=== PATIENT | male | born 1980 | race Caucasian/White ===

== ENCOUNTER 2017-12-24 17:58 | Emergency (ER) | payer SELFPAY ==
[2017-12-24 17:59] VITALS: BP 156/88; PULSE 117; RESP 18; TEMP 37.2; O2SAT 99; BMI 33.6
--- NOTE | 2017-12-24 18:15 | ED.VISSUMM ---
- ER Visit Summary Date of Service: 12/24/17 Chief Complaint: Facial swelling History of Present Illness: The patient is a 37 M who reports that since Saturday he has had right-sided facial swelling and pain. States he has had long-term poor dentition. He has appointment on January 17 with a dentist. Due to the pain and swelling he wanted to be seen. No fevers. Physical Examination: Afebrile vital signs are stable Gen: Well-nourished well-developed Head: Normocephalic atraumatic Eyes: Perrl EOMI ENT: TMs clear no rhinorrhea moist mucous membranes there is right maxillary facial swelling without erythema. There is no drainable abscess seen. He has very poor dentition throughout with most teeth decayed down to the gumline. He is handling his secretions normally. Neck: Supple no lymphadenopathy no JVD nontender CVS: Regular rate rhythm no murmurs normal S1-S2 Respiratory: No distress clear to auscultation bilaterally chest nontender Abdomen: Soft nontender nondistended normal bowel sounds no masses Back: Nontender Extremity: Nontender no edema Skin: Normal color no rash Neuro: alert orientated ?3 CN II-XII intact normal strength sensation reflexes gait cerebellar Psych: Normal affect normal mood Emergency Department Course and Treatment: Patient received a dose of IV clindamycin. He will be discharged home on [place] and clindamycin. Return if worsening and follow-up with primary care and dentistry. Impression: 1. Dental abscess This note was generated with [employer] dictation software. It may contain incorrect words, spelling, and punctuation that were not noted in review of the chart prior to signing ED Disposition - Plan for ED Patient: Disposition: Home or Assisted Living Chief Complaint: Dental Instructions: Dental Abscess Prescriptions: Hydrocodone Bitart/Apap 5-325 [[place] 5/325] 1 - 2 tab PO Q4H PRN PRN 3 Days #12 tab PRN Reason: Pain Clindamycin [Cleocin] 300 mg PO 4X/DAY #80 cap Referrals: Louie Funk MD [Primary Care Provider] - Additional Instructions: Follow-up with your dentist as soon as possible.
--- NOTE | 2017-12-24 18:25 | ED.DCSUM_ITS ---
- ER Visit Summary Date of Service: 12/24/17 Chief Complaint: Facial swelling History of Present Illness: The patient is a 37 M who reports that since Saturday he has had right-sided facial swelling and pain. States he has had long-term poor dentition. He has appointment on January 17 with a dentist. Due to the pain and swelling he wanted to be seen. No fevers. Physical Examination: Afebrile vital signs are stable Gen: Well-nourished well-developed Head: Normocephalic atraumatic Eyes: Perrl EOMI ENT: TMs clear no rhinorrhea moist mucous membranes there is right maxillary facial swelling without erythema. There is no drainable abscess seen. He has very poor dentition throughout with most teeth decayed down to the gumline. He is handling his secretions normally. Neck: Supple no lymphadenopathy no JVD nontender CVS: Regular rate rhythm no murmurs normal S1-S2 Respiratory: No distress clear to auscultation bilaterally chest nontender Abdomen: Soft nontender nondistended normal bowel sounds no masses Back: Nontender Extremity: Nontender no edema Skin: Normal color no rash Neuro: alert orientated ?3 CN II-XII intact normal strength sensation reflexes gait cerebellar Psych: Normal affect normal mood Emergency Department Course and Treatment: Patient received a dose of IV clindamycin. He will be discharged home on [place] and clindamycin. Return if worsening and follow-up with primary care and dentistry. Impression: 1. Dental abscess This note was generated with [employer] dictation software. It may contain incorrect words, spelling, and punctuation that were not noted in review of the chart prior to signing ED Disposition - Plan for ED Patient: Disposition: Home or Assisted Living Chief Complaint: Dental Instructions: Dental Abscess Prescriptions: Hydrocodone Bitart/Apap 5-325 [[place] 5/325] 1 - 2 tab PO Q4H PRN PRN 3 Days #12 tab PRN Reason: Pain Clindamycin [Cleocin] 300 mg PO 4X/DAY #80 cap Referrals: Louie Funk MD [Primary Care Provider] - Additional Instructions: Follow-up with your dentist as soon as possible.
[2017-12-24] MEDS: Clindamycin 600 MG/50 ML BAG 100 MG IV (18:38)
[2017-12-24 18:59] VITALS: BP 138/81; PULSE 87; RESP 16; O2SAT 99
== END 2017-12-24 19:31 | disposition home or self-care (01) ==
PROVIDERS: Emergency Provider Emergency Medicine; Family Provider Internal Medicine; PCP Internal Medicine
DX: K04.7 Periapical abscess without sinus (principal); Z72.0 Tobacco use; K02.9 Dental caries, unspecified
CPT/HCPCS: 96365; 99283; A4216

== ENCOUNTER 2018-12-06 17:37 | Emergency (ER) | payer SELFPAY ==
[2018-12-06 17:38] VITALS: BP 154/81; PULSE 80; RESP 18; TEMP 36.6; O2SAT 99; BMI 32.0
--- NOTE | 2018-12-06 17:56 | ED.VISSUMM ---
- ER Visit Summary Date of Service: 12/06/18 Chief Complaint: Abdominal pain History of Present Illness: The patient is a 38 M presenting with abdominal pain. Patient states it started around 8 AM. He has left lower quadrant abdominal pain. He states he was sent home from work due to his pain today. He has had diarrhea. He denies nausea or vomiting. Denies urinary complaints. Denies fever. Denies other complaints. Physical Examination: Vitals are stable. Patient is afebrile. Alert no acute distress. HEENT exam is unremarkable. Neck is supple. Lungs are clear and equal bilaterally. Heart is regular rate and rhythm. Abdomen is soft left lower quadrant tenderness with no rebound or guarding Extremities are unremarkable. Skin is warm and dry. No focal neurologic deficit. Remainder of exam is unremarkable. Emergency Department Course and Treatment: CBC, chemistries are unremarkable. Urinalysis unremarkable. Patient was given IV fluids, Zofran. CT abdomen pelvis shows no acute process. On reevaluation, patient is resting comfortably. He is given prescription for Bentyl and Zofran. Advised to follow-up with his primary care physician. Advised return to ED if worsening complaints. Disposition: Discharge home Impression: Abdominal pain This note was generated with [employer] dictation software. It may contain incorrect words, spelling, and punctuation that were not noted in review of the chart prior to signing ED Disposition - Plan for ED Patient: Chief Complaint: Abd Pain Instructions: ED Abdominal Pain Unkn Cause Prescriptions: Ondansetron [Zofran Odt] 4 mg PO Q8H PRN PRN #10 tablet PRN Reason: Nausea Dicyclomine HCl [Bentyl] 20 mg PO TIDAC #20 capsule Referrals: Louie Funk MD [Primary Care Provider] -
--- NOTE | 2018-12-06 17:57 | CT_ITS ---
STUDY: CT ABDOMEN AND PELVIS WITH CONTRAST REASON FOR EXAM: Male, 38 years old. Left-sided pain RADIATION DOSAGE (If Supplied By Facility): CTDIvol = ( 17.38 ) mGy, DLP = ( 890.41 ) mGycm TECHNIQUE: Transaxial images were obtained from the dome of the diaphragm to the symphysis pubis with oral contrast. 100ML ml of Isovue 300 contrast was administered. Sagittal and coronal images were reconstructed. Individualized dose optimization techniques were used for this CT. COMPARISON: None. FINDINGS: The visualized lung bases are clear. The visualized portions of the heart and pericardium are within normal limits. There are no calcified gallstones present. The liver is within normal limits. There are no suspicious hepatic lesions. The spleen is normal in size. The pancreas is within normal limits. The adrenal glands are within normal limits. There are no renal or ureteral stones. There is no hydronephrosis. There are no focal renal lesions. Normal visualized stomach. There is no bowel obstruction or inflammation. The appendix is visualized and appears normal. The aorta is normal in caliber. There is no abdominal or pelvic free air, free fluid, fluid collection or lymphadenopathy. There are no destructive osseous lesions. CT/Abdomen/Pelvis WITH Contrast IMPRESSION: No acute abdominal or pelvic pathology. Electronically Signed: Chad Berman, at 20:20 EST Tel , Service support ,
[2018-12-06] MEDS: Ondansetron 4 MG/2 ML Vial IV (18:09)
[2018-12-06] MEDS: 0.9% Normal Saline 1,000 ML 1000 ML IV (18:09)
[2018-12-06 18:20] LABS: Bacteria 0 SEEN /hpf (None Seen); Mucous, Urine 0 SEEN /hpf (<or=2+); Red Blood Cells-Urine 0 SEEN /hpf (0-5); Squamous Epithelial Cells - UA 0 SEEN /hpf (0-5); White Blood Cells 0 SEEN /hpf (0-5)
[2018-12-06 18:22] LABS: Color, Urine Yellow (Yellow); Glucose, Dipstick Normal (Normal); Ketone-Dipstick Negative (Negative); Leukocyte Esterase-Dipstick Negative /ul (Negative); Nitrite-Dipstick Negative (Negative); Occult Blood-Urine Negative /ul (Negative); Protein-Dipstick Negative (Negative); Specific Gravity, Urine 1.005 (1.002-1.030); Urine Bilirubin Dipstick Negative (Negative); Urine Clarity Clear (Clear); Urine Urobilinogen Normal (Normal)
[2018-12-06 18:24] LABS: Absolute Lymphocyte Count 2.19 X10^3/ul (0.83-4.51); Absolute Neutrophil Count 5.2 X10^3/uL (2.0-7.7); Basophil# 0.06 X10^3/uL; Basophil% 0.7 % (0-1); Eosinophil# 0.35 X10^3/uL; Eosinophils% 4.1 % (0-5); Hematocrit 48.6 % (40-54); Hemoglobin 16.5 g/dl (13.0-16.5); Lymphocyte # 2.19 X10^3/ul (4.0); Lymphocyte % 25.3 % (19-41); Mean Corpuscular Hgb 32.7 pg (27.0-32.0); Mean Corpuscular Volume 96.4 fL (80-94); Mean Platelet Vol. 9.4 fl (6.2-12.0); Monocyte# 0.81 X10^3/uL; Monocyte% 9.4 % (0-10); Neutrophil # 5.22 X10^3/uL (2.7-7.7); Neutrophil % 60.4 % (47-70); POSITIVE COUNT NO; POSITIVE DIFFERENTIAL NO; POSITIVE MORPHOLOGY NO; Platelet Count 235 K/mm3 (150-450); RBC Distribution Width CV 12.7 % (11.6-14.6); RBC Distribution Width SD 44.5 fl (35.1-43.9); Red Blood Count 5.04 M/mm3 (4.6-6.2); White Blood Count 8.6 K/mm3 (4.4-11.0)
[2018-12-06 18:36] LABS: Anion Gap 6 (5-15); BUN 11 mg/dL (7-18); BUN/Creat Ratio 11.2 RATIO (10-20); Calcium,Total 9.2 mg/dL (8.5-10.1); Chloride 104 mmol/L (98-107); Creatinine, Serum 0.98 mg/dL (0.70-1.30); EST Glomerular Filtration Rate 91 mL/min (>60); Est Glom Filt Rate - Afr Amer 110 mL/min (>60); Estimated Creatinine Clearance 78.93 ml/min; Glucose 96 mg/dL (74-106); Sodium Level 138 mmol/L (136-145)
--- NOTE | 2018-12-06 20:24 | ED.DEP ---
ED Disposition - Plan for ED Patient: Chief Complaint: Abd Pain Instructions: ED Abdominal Pain Unkn Cause Prescriptions: Ondansetron [Zofran Odt] 4 mg PO Q8H PRN PRN #10 tablet PRN Reason: Nausea Dicyclomine HCl [Bentyl] 20 mg PO TIDAC #20 capsule Referrals: Louie Funk MD [Primary Care Provider] -
[2018-12-06 20:32] VITALS: BP 151/88; PULSE 84; O2SAT 99
[2018-12-06 20:35] VITALS: BP 151/54; PULSE 84; O2SAT 98
== END 2018-12-06 20:36 | disposition home or self-care (01) ==
LOC: ED 18:12
PROVIDERS: Emergency Provider Emergency Medicine; Family Provider Internal Medicine; PCP Internal Medicine
DX: R10.32 Left lower quadrant pain (principal); R19.7 Diarrhea, unspecified; Z72.0 Tobacco use
CPT/HCPCS: 74177; 80048; 81001; 85025; 96361; 96374; 99283; J7030; Q9967; A4216; J2405

== ENCOUNTER 2020-06-04 13:20 | Emergency (ER) | payer SELFPAY ==
[2020-06-04 13:21] VITALS: BP 144/98; PULSE 104; RESP 16; TEMP 36.6; O2SAT 98; BMI 35.6
--- NOTE | 2020-06-04 13:36 | CT_ITS ---
STUDY: CT ABDOMEN AND PELVIS WITH CONTRAST REASON FOR EXAM: Male, 39 years old. PT STATED RUQ PAIN, UNABLE TO MOVE BOWELS RADIATION DOSAGE (If Supplied By Facility): CTDIvol = ( 14.75 ) mGy, DLP = ( 1041.09 ) mGycm TECHNIQUE: Transaxial images were obtained from the dome of the diaphragm to the symphysis pubis without oral contrast. IV 100mL Isovue-300 was administered. Sagittal and coronal images were reconstructed. Individualized dose optimization techniques were used for this CT. COMPARISON: December 06, 2017 FINDINGS: The visualized lung bases are unremarkable. The visualized portions of the heart are within normal limits. Normal liver. Normal gallbladder and extrahepatic biliary system. Normal spleen. Normal pancreas. Normal bilateral adrenal glands. Normal right kidney. Normal left kidney. Normal visualized stomach. Normal small intestine. There is mild thickening of the left colon. There is no demonstrated pericolonic inflammatory changes to suggest acute disease. The appendix is visualized and appears normal. Normal abdominal aorta. Normal inferior vena cava. Normal retroperitoneum. Normal urinary bladder. Normal abdominal wall. There are diffuse degenerative changes of the visualized lumbar spine. CT/Abdomen/Pelvis W IV Cont ONLY IMPRESSION: Mild thickening of the left colon. Differential considerations are nondistention, inflammatory and infectious colitis. Electronically Signed: Lucy Gonsalves MD at 15:17 EDT Tel , Service support ,
--- NOTE | 2020-06-04 13:37 | ED.VIS.GEN ---
History of Present Illness Chief Complaint: Abd Pain Informant: Patient Narrative: Patient is a 39-year-old previously ill female who presents to the emergency department for right upper quadrant pain and distention. This been going on the past 2 to 3 weeks. He does not know any aggravating or relieving factors. Currently rates his discomfort as a 5 out of 10. He has not tried taking anything for it. He feels like there is a mass in his abdomen. He feels a pressure sensation when bending forward. He does have some radiation of the right upper quadrant pain to the right side of his flank. He has been slightly nauseous but denies vomiting. States he has been having very small bowel movements but has been having them daily. No blood or black tarry stools. No urinary symptoms. No fevers or chills. Denies any chest pain or shortness of breath. No previous abdominal surgeries. He is a former smoker denies any alcohol or drug use. Past Medical History - Allergies and Home Meds Allergies/Adverse Reactions: Allergies naproxen Adverse Reaction (Verified 06/04/20 13:21) Nausea Primary Care Physician: Santino Mendieta DO [NON CLINICAL AFFILIATE] - 3-5 Days Louie Funk MD [Primary Care Provider] - Prior records reviewed: Yes Past Medical History: None Surgical History: no surgical history Smoking Status: Former smoker Alcohol: None Drugs: None Review of Systems All systems negative except as indicated General: Denies: Chills, Fever, Sweats Eyes: Denies: Visual changes - bilaterally, Diplopia ENT: Denies: Rhinorrhea, Sore throat Cardiovascular: Denies: Chest pain, Palpitations Respiratory: Denies: Dyspnea, Cough, Dyspnea on exertion Gastrointestinal: Reports: Abdominal pain, Nausea. Denies: Vomiting, Diarrhea, Melena, Hematochezia Genitourinary: Denies: Dysuria, Hematuria, Frequency Musculoskeletal: Denies: Back pain, Extremity Pain Skin: Denies: Rash, Wounds Neurological: Denies: Headache, Weakness, Numbness Physical Exam Vital Signs/Narrative: Vital Signs Temp Pulse Resp BP Pulse Ox 06/04/20 13:21 97.8 F 104 H 16 144/98 H 98 Inital Vital Signs reviewed: Yes General: Well nourished, Well developed, No Acute Distress Head: Normocephalic, Atraumatic Eyes: Perrl, EOMI ENT: Moist mucous membranes, No rhinorrhea Neck: Supple, Nontender Cardiovascular: Regular rate, Regular rhythm, No murmurs Respiratory: No distress, CTA bilaterally, Chest nontender Abdomen: Soft, Nontender, Nondistended, Normal bowel sounds, Tender - Mild, mostly in the right upper quadrant, - - No pain over McBurney's point. Negative for: Guarding, Rebound tenderness, Da Silva's sign Back: Nontender, Normal Inspection Extremities: Nontender, No edema Skin: Normal color, No rash Neurological: Alert, Oriented x3, Cranial nerves II-XII grossly intact, Normal Strength, Normal Sensation Psychological: Normal affect, Normal Mood Diagnostic/Tx/Re-eval - Medical Decision Making Patient presents to the emergency department for right upper quadrant discomfort and abdominal distention. Symptoms have been present the past few weeks. Upon arrival to the emerge department vital signs within normal limits. Does not appear in any acute distress. No peritoneal signs on physical exam but does have some mild tenderness. Will check basic lab work along with CT scan of the abdomen and pelvis to evaluate for gallbladder/liver disease. Lab work did not reveal any significant acute abnormality. Very mildly elevated bilirubin. No other elevation of liver enzymes. Urine did not show any evidence of infection or blood. CT scan had some mild thickening of the colon. This is nonspecific. He has not had any bloody bowel movements to make me concerned for ischemic colitis. Will trial a course of Bentyl for symptomatic treatment. He is provided a referral to a PCP from the doc list as he has not seen Dr. Hwang in a long time. Return precautions were discussed with the patient including any worsening abdominal pain developing any systemic symptoms including any fever/chills or any bloody bowel movements were reviewed. He understands and is agreeable this plan. Will discharge home in stable condition. ED Disposition - Plan for ED Patient: Disposition: Home or Assisted Living Diagnosis: Abdominal pain Instructions: ED Unknown Causes of Abdominal Pain Male Prescriptions: Dicyclomine HCl [Bentyl] 10 mg PO TID PRN 30 Days #30 cap PRN Reason: pain Transmission Status: Received by [facility] #[id number] Referrals: Louie Funk MD [Primary Care Provider] - Santino Mendieta DO [NON CLINICAL AFFILIATE] - 3-5 Days
[2020-06-04 13:49] LABS: Absolute Lymphocyte Count 1.81 X10^3/uL (0.83-4.51); Absolute Neutrophil Count 4.3 X10^3/uL (2.0-7.7); Basophil# 0.04 X10^3/uL; Basophil% 0.6 % (0-1); Eosinophil# 0.06 X10^3/uL; Eosinophils% 0.9 % (0-5); Hematocrit 43.3 % (40-54); Hemoglobin 14.9 g/dL (13.0-16.5); Lymphocyte # 1.81 X10^3/ul (4.0); Lymphocyte % 25.8 % (19-41); Mean Corp Hgb Conc 34.4 g/dL (32-36); Mean Corpuscular Hgb 31.6 pg (27.0-32.0); Mean Corpuscular Volume 91.9 fL (80-94); Mean Platelet Vol. 8.9 fl (6.2-12.0); Monocyte# 0.74 X10^3/uL; Monocyte% 10.6 % (0-10); NRBC Flagged by Analyzer 0 % (0-5); Neutrophil # 4.34 X10^3/uL (2.7-7.7); Neutrophil % 61.8 % (47-70); Platelet Count 288 K/mm3 (150-450); RBC Distribution Width SD 43.4 fl (35.1-43.9); Red Blood Count 4.71 M/mm3 (4.6-6.2)
[2020-06-04 14:06] LABS: Bacteria 0 SEEN /hpf (None Seen); Mucous, Urine 0 SEEN /hpf (<or=2+); Red Blood Cells-Urine 0 SEEN /hpf (0-5); Squamous Epithelial Cells - UA 0 SEEN /hpf (0-5); White Blood Cells 0 SEEN /hpf (0-5)
[2020-06-04 14:08] LABS: Color, Urine Straw (Yellow); Glucose, Dipstick Normal (Normal); Ketone-Dipstick Negative (Negative); Leukocyte Esterase-Dipstick Negative /ul (Negative); Nitrite-Dipstick Negative (Negative); Occult Blood-Urine Negative /ul (Negative); Protein-Dipstick Negative (Negative); Urine Bilirubin Dipstick Negative (Negative); Urine Clarity Clear (Clear); Urine Urobilinogen Normal (Normal); Urine pH 6.5 (5.0 - 8.0)
[2020-06-04 14:35] LABS: ALB/GLOB Ratio 1.1 RATIO (0.9-2.4); AST(SGOT) 26 U/L (15-37); Alanine Aminotransfer ALT/SGPT 35 U/L (16-61); Albumin, Serum 4.2 g/dL (3.2-5.0); Alkaline Phosphatase 84 U/L (45-117); Anion Gap 5 (5-15); BUN 10 mg/dL (7-18); BUN/Creat Ratio 11.3 RATIO (10-20); Calcium,Total 8.8 mg/dL (8.5-10.1); Chloride 105 mmol/L (98-107); Creatinine, Serum 0.88 mg/dL (0.70-1.30); EST Glomerular Filtration Rate 102 mL/min (>60); Est Glom Filt Rate - Afr Amer 123 mL/min (>60); Estimated Creatinine Clearance 87.04 ml/min; Globulin 3.9 g/dL (2.2-4.2); Glucose 105 mg/dL (74-106); Lipase 75 U/L (73-393); Potassium 3.8 mmol/L (3.5-5.1); Protein, Total 8.1 g/dL (6.4-8.2); Sodium Level 138 mmol/L (136-145)
[2020-06-04 15:47] VITALS: BP 138/87; PULSE 84; RESP 19; O2SAT 99
== END 2020-06-04 15:48 | disposition home or self-care (01) ==
PROVIDERS: Emergency Provider Emergency Medicine; PCP Internal Medicine
DX: R10.11 Right upper quadrant pain (principal); Z87.891 Personal history of nicotine dependence
CPT/HCPCS: 74177; 80053; 81001; 83690; 85025; 99283; Q9967; A4216

== ENCOUNTER 2020-07-01 06:35 | Emergency (ER) | payer SELFPAY ==
[2020-07-01 06:37] VITALS: BP 143/82; PULSE 95; RESP 23; TEMP 37; O2SAT 100; BMI 36.6
--- NOTE | 2020-07-01 06:49 | EKG12_ITS ---
Test Reason : CP Blood Pressure : / mmHG Vent. Rate : 087 BPM Atrial Rate : 087 BPM P-R Int : 136 ms QRS Dur : 090 ms QT Int : 338 ms P-R-T Axes : 023 034 040 degrees QTc Int : 406 ms Normal sinus rhythm Poor R wave progression Confirmed by SERJIO PEÑALOZA, LANE ([id number]), loan expeditor JOHN MCGINNIS ([id number]) on 07/05/2020 10:40:42 AM Referred By: RELL Confirmed By:LANE BASSETT MD
--- NOTE | 2020-07-01 06:55 | RAD_ITS ---
STUDY: X-RAY CHEST REASON FOR EXAM: Male, 39 years old. chest pain and sob x 1 week TECHNIQUE: Single AP portable view of the chest. COMPARISON: January 20 2011. FINDINGS: Cardiac silhouette unremarkable. Pulmonary vascularity unremarkable. Aorta unremarkable. No focal patchy airspace opacities. No pleural effusions. Upper abdomen unremarkable. Osseous structures intact. No pneumothorax. RAD/Chest 1 View (Portable) IMPRESSION: No acute cardiopulmonary findings Electronically Signed: Jean Dumont DO at 8:22 EDT Tel , Service support ,
[2020-07-01 07:00] LABS: Absolute Lymphocyte Count 2.45 X10^3/uL (0.83-4.51); Absolute Neutrophil Count 3.9 X10^3/uL (2.0-7.7); Basophil# 0.05 X10^3/uL; Basophil% 0.7 % (0-1); Eosinophil# 0.12 X10^3/uL; Eosinophils% 1.7 % (0-5); Hematocrit 44.1 % (40-54); Hemoglobin 15.2 g/dL (13.0-16.5); Lymphocyte # 2.45 X10^3/ul (4.0); Lymphocyte % 34.1 % (19-41); Mean Corp Hgb Conc 34.5 g/dL (32-36); Mean Corpuscular Volume 92.8 fL (80-94); Mean Platelet Vol. 9.4 fl (6.2-12.0); Monocyte# 0.64 X10^3/uL; Monocyte% 8.9 % (0-10); NRBC Flagged by Analyzer 0 % (0-5); Neutrophil # 3.91 X10^3/uL (2.7-7.7); Neutrophil % 54.3 % (47-70); Platelet Count 287 K/mm3 (150-450); RBC Distribution Width CV 12.7 % (11.6-14.6); RBC Distribution Width SD 43.8 fl (35.1-43.9); Red Blood Count 4.75 M/mm3 (4.6-6.2); White Blood Count 7.2 K/mm3 (4.4-11.0)
[2020-07-01 07:14] LABS: BUN 6 mg/dL (7-18); Creatinine, Serum 1.13 mg/dL (0.70-1.30); Estimated Creatinine Clearance 67.78 ml/min; Glucose 154 mg/dL (74-106)
--- NOTE | 2020-07-01 07:14 | ED.VIS.GEN ---
History of Present Illness Chief Complaint: Chest Pain Informant: Patient Narrative: Patient presents with chest pressure that he has had for the last 6 days. He states it has been constant but sporadically does hurt worse. He describes intermittent sharp stabbing pains. He states he has been breathing fine. He has not been coughing. He states he is not had a fever but has had chills. He states he feels like he is going to have a fever but every time he checks his temperature is normal. He has no known exposure to COVID?19. He has no other sick contacts. He denies cardiac history. No history of DVT/PE. He states he quit smoking about 6 months ago. He smoked for 15 years. He states he does not have any other known medical problems. He takes no medications on a regular basis. Past Medical History - Allergies and Home Meds Allergies/Adverse Reactions: Allergies naproxen Adverse Reaction (Verified 07/01/20 06:36) Nausea Primary Care Physician: Louie Funk MD [Primary Care Provider] - Prior records reviewed: Yes Surgical History: no surgical history Lives: Alone Smoking Status: Former smoker Alcohol: None Drugs: None Review of Systems General: Reports: Chills, Sweats Eyes: Denies: Visual changes - bilaterally, Diplopia ENT: Denies: Rhinorrhea, Sore throat Cardiovascular: Reports: Chest pain Respiratory: Denies: Dyspnea, Cough Gastrointestinal: Denies: Abdominal pain, Nausea Musculoskeletal: Reports: Myalgias. Denies: Arthralgias Skin: Denies: Rash Neurological: Denies: Headache, Weakness Allergy: Denies: Uticaria Physical Exam Vital Signs/Narrative: Vital Signs Temp Pulse Resp BP Pulse Ox 07/01/20 06:37 98.6 F 95 23 H 143/82 H 100 Inital Vital Signs reviewed: Yes General: No Acute Distress Head: Normocephalic, Atraumatic Eyes: Perrl, EOMI ENT: Moist mucous membranes Cardiovascular: Regular rate, Regular rhythm, No murmurs Respiratory: No distress, CTA bilaterally. Negative for: Wheezing Abdomen: Soft Extremities: Nontender, No edema. Negative for: Calf Tenderness Skin: Normal color, No rash Neurological: Alert, Oriented x3 Psychological: Normal affect, Normal Mood Diagnostic/Tx/Re-eval Clinical Impression(s) from Imaging Studies Chest X-Ray 07/01/20 06:55 IMPRESSION: No acute cardiopulmonary findings Electronically Signed: Jean Dumont, at 8:22 EDT Tel , Service support , Laboratory Data 07/01/20 07/01/20 07/01/20 06:42 06:42 06:42 WBC 7.2 RBC 4.75 Hgb 15.2 Hct 44.1 MCV 92.8 MCH 32.0 MCHC 34.5 RDW Std Deviation 43.8 RDW Coeff of Lior 12.7 Plt Count 287 MPV 9.4 Immature Gran % (Auto) 0.300 Neut % (Auto) 54.3 Lymph % (Auto) 34.1 [place] % (Auto) 8.9 Eos % (Auto) 1.7 Baso % (Auto) 0.7 Absolute Neuts (auto) 3.9 Absolute Lymphs (auto) 2.45 Nucleated RBC % 0 D-Dimer Quant (PE/DVT) <= 0.27 Sodium 139 Potassium 3.3 L Chloride 107 Carbon Dioxide 25.0 Anion Gap 7 BUN 6 L Creatinine 1.13 Estim Creat Clear Calc 67.78 Est GFR (MDRD) Af Amer 92 Est GFR (MDRD) Non-Af 76 BUN/Creatinine Ratio 5.3 L Glucose 154 H Calcium 8.3 L Magnesium 1.9 Troponin I < 0.015 - Rhythm Strip Rhythm Strip: Sinus Rhythm Rate: 87 - EKG Initial EKG Interpretation: Sinus Rhythm, No Acute Injury Pattern - Medical Decision Making Was seen and evaluated on arrival for 6 days of chest pain which is been persistent. He was concerned he possibly had a viral syndrome but he has not had a fever. He does states he has the chills and sweats at times. His EKG on arrival was sinus rhythm. His vital signs are stable and he is afebrile. Has normal breath sounds on physical exam. His heart is regular rate and rhythm. No reproducible chest wall pain. Chest x-ray is negative. Blood work is within normal limits. D-dimer is negative. After long discussion he stated that his chest pain was more like a burning. He states he ate lasagna last night and this did make it worse. He was given a GI cocktail which did improve his symptoms. I will place him on Pepcid for outpatient. Given that his cardiac work-up is negative after several days of constant pain I do not believe he needs a repeat EKG or troponin. I feel the patient can be discharged home in stable condition. He is given return precautions. Impression: 1. Atypical chest pain 2. Possible viral syndrome ED Disposition - Plan for ED Patient: Disposition: Home or Assisted Living Instructions: ED Chest Pain Atypical Unkn Cause, ED ACID INDIGESTION Adult Prescriptions: Famotidine [Pepcid] 20 mg PO BID #28 tab Transmission Status: Received by [facility] #[id number] Referrals: Louie Funk MD [Primary Care Provider] -
[2020-07-01 07:15] LABS: Anion Gap 7 (5-15); BUN/Creat Ratio 5.3 RATIO (10-20); Calcium,Total 8.3 mg/dL (8.5-10.1); Chloride 107 mmol/L (98-107); EST Glomerular Filtration Rate 76 mL/min (>60); Est Glom Filt Rate - Afr Amer 92 mL/min (>60); Magnesium 1.9 mg/dL (1.6-2.6); Potassium 3.3 mmol/L (3.5-5.1); Sodium Level 139 mmol/L (136-145)
[2020-07-01 10:06] LABS: D-Dimer Quantitative (DVT/PE) <= 0.27 FEU/ug/m (0.27-0.49)
[2020-07-01] MEDS: Mag Hydrox/Al Hydrox/Simeth 30 ML UDC PO (11:16)
[2020-07-01 11:17] VITALS: BP 130/64; PULSE 78; RESP 16; O2SAT 97
[2020-07-01 11:25] VITALS: BP 130/64; PULSE 78; RESP 16
== END 2020-07-01 11:26 | disposition home or self-care (01) ==
PROVIDERS: Emergency Medicine; Emergency Provider Student in an Organized Health Care Education/Training Program; PCP Internal Medicine
DX: R07.89 Other chest pain (principal); Z87.891 Personal history of nicotine dependence
CPT/HCPCS: 71045; 80048; 83735; 84484; 85025; 85379; 93005; 99285; A4216

== ENCOUNTER 2020-07-08 03:33 | Emergency (ER) | payer SELFPAY ==
[2020-07-08 03:35] VITALS: BP 175/80; PULSE 74; RESP 16; TEMP 36.7; O2SAT 96; BMI 35.3
[2020-07-08 04:09] LABS: Absolute Lymphocyte Count 2.33 X10^3/uL (0.83-4.51); Absolute Neutrophil Count 3.5 X10^3/uL (2.0-7.7); Basophil# 0.04 X10^3/uL; Basophil% 0.6 % (0-1); Eosinophil# 0.14 X10^3/uL; Hematocrit 42.6 % (40-54); Hemoglobin 14.6 g/dL (13.0-16.5); Lymphocyte # 2.33 X10^3/ul (4.0); Lymphocyte % 33.5 % (19-41); Mean Corp Hgb Conc 34.3 g/dL (32-36); Mean Corpuscular Hgb 31.7 pg (27.0-32.0); Mean Corpuscular Volume 92.6 fL (80-94); Monocyte# 0.94 X10^3/uL; Monocyte% 13.5 % (0-10); NRBC Flagged by Analyzer 0 % (0-5); Neutrophil # 3.49 X10^3/uL (2.7-7.7); Neutrophil % 50.1 % (47-70); Platelet Count 240 K/mm3 (150-450); RBC Distribution Width CV 12.9 % (11.6-14.6); RBC Distribution Width SD 43.5 fl (35.1-43.9)
[2020-07-08 04:21] LABS: D-Dimer Quantitative (DVT/PE) <= 0.27 FEU/ug/m (0.27-0.49)
[2020-07-08 04:24] LABS: Anion Gap 7 (5-15); BUN 11 mg/dL (7-18); BUN/Creat Ratio 12.1 RATIO (10-20); Calcium,Total 8.5 mg/dL (8.5-10.1); Chloride 105 mmol/L (98-107); Creatinine, Serum 0.91 mg/dL (0.70-1.30); EST Glomerular Filtration Rate 98 mL/min (>60); Est Glom Filt Rate - Afr Amer 119 mL/min (>60); Estimated Creatinine Clearance 83.33 ml/min; Glucose 102 mg/dL (74-106); Magnesium 1.9 mg/dL (1.6-2.6); Potassium 3.5 mmol/L (3.5-5.1); Sodium Level 138 mmol/L (136-145)
--- NOTE | 2020-07-08 04:37 | ED.VIS.GEN ---
History of Present Illness Chief Complaint: Lower Extremity Injury Informant: Patient Onset: Today Context: Sudden Onset Timing: Intermittent Narrative: Patient is a 40-year-old male that denies any past medical history presenting with cramping and pain of his right calf. Patient states started at 4 PM at work. States it was constant until around 730 and since then he has had pulsating pain in his calf. He states he has some mild tingling that goes up to his knee when he first stands. The symptoms are worse when he standing. He did not take anything for symptoms prior to arrival. He never had any symptoms like this before. He denies any associated shortness of breath or chest pain. He denies any history of DVT or PE. Patient states he works at a [employer] place and the AC is not been working so is been incredibly hot inside. Patient not taking medications on a daily basis. He denies any alcohol, tobacco or drug use. He denies any other complaints at this time. Past Medical History - Allergies and Home Meds Allergies/Adverse Reactions: Allergies naproxen Adverse Reaction (Verified 07/01/20 06:36) Nausea Primary Care Physician: Louie Funk MD [Primary Care Provider] - Past Medical History: None Surgical History: no surgical history Smoking Status: Former smoker Review of Systems General: Denies: Chills, Fever, Sweats Eyes: Denies: Visual changes - bilaterally, Diplopia ENT: Denies: Rhinorrhea, Sore throat Cardiovascular: Denies: Chest pain, Palpitations Respiratory: Denies: Dyspnea, Cough, Dyspnea on exertion Gastrointestinal: Denies: Abdominal pain, Nausea, Vomiting, Diarrhea, Melena, Hematochezia Genitourinary: Denies: Dysuria, Hematuria, Frequency Musculoskeletal: Reports: Extremity Pain - Right calf?cramping. Denies: Back pain, Swelling Skin: Denies: Rash, Wounds Neurological: Denies: Headache, Weakness, Numbness Physical Exam Vital Signs/Narrative: Vital Signs Temp Pulse Resp BP Pulse Ox 07/08/20 03:35 98.1 F 74 16 175/80 H 96 Inital Vital Signs reviewed: Yes General: Well nourished, Well developed, No Acute Distress Head: Normocephalic, Atraumatic Eyes: Perrl, EOMI ENT: Moist mucous membranes, No rhinorrhea Neck: Supple, Nontender Cardiovascular: Regular rate, Regular rhythm, No murmurs, - - 2+ pulse DP and PT of right foot Respiratory: No distress, CTA bilaterally, Chest nontender Abdomen: Soft, Nontender, Nondistended, Normal bowel sounds Extremities: Nontender, No edema, - - No palpable cords of the calf appreciated. Negative for: Tenderness, Edema, Calf Tenderness Skin: Normal color, No rash Neurological: Alert, Oriented x3, Cranial nerves II-XII grossly intact, Normal Strength, Normal Sensation Psychological: Normal affect, Normal Mood Diagnostic/Tx/Re-eval Laboratory Data 07/08/20 07/08/20 07/08/20 04:00 04:00 04:00 WBC 7.0 RBC 4.60 Hgb 14.6 Hct 42.6 MCV 92.6 MCH 31.7 MCHC 34.3 RDW Std Deviation 43.5 RDW Coeff of Lior 12.9 Plt Count 240 MPV 9.0 Immature Gran % (Auto) 0.300 Neut % (Auto) 50.1 Lymph % (Auto) 33.5 [place] % (Auto) 13.5 H Eos % (Auto) 2.0 Baso % (Auto) 0.6 Absolute Neuts (auto) 3.5 Absolute Lymphs (auto) 2.33 Nucleated RBC % 0 D-Dimer Quant (PE/DVT) <= 0.27 Sodium 138 Potassium 3.5 Chloride 105 Carbon Dioxide 26.0 Anion Gap 7 BUN 11 Creatinine 0.91 Estim Creat Clear Calc 83.33 Est GFR (MDRD) Af Amer 119 Est GFR (MDRD) Non-Af 98 BUN/Creatinine Ratio 12.1 Glucose 102 Calcium 8.5 Magnesium 1.9 - Medical Decision Making Patient is evaluated for atraumatic pain of his right calf. It seems to more associated with muscle spasm however he is not currently having any. He is low risk for DVT per Wells criteria. D-dimer is negative I do not think he requires ultrasound or further evaluation to rule out DVT. He is not having electrolyte abnormalities. Is possible he is having muscle spasm associated with the hot work environment. He is given IV fluids in the emergency room. Will be discharged home to follow-up with his primary care doctor. ED Disposition - Plan for ED Patient: Disposition: Home or Assisted Living Diagnosis: Pain of right calf Instructions: ED ACHING MUSCLES, ED SPASM Muscle Referrals: Louie Funk MD [Primary Care Provider] - Additional Instructions: Do not suspect a blood clot. You do not have any significant electrolyte abnormalities. Think you are stable to follow-up with your primary care doctor. Hopefully the fluids and Tylenol will help with your symptoms. Tylenol at home as needed for pain.
[2020-07-08] MEDS: Acetaminophen 325 MG Tablet 650 MG PO (04:52)
[2020-07-08 04:55] VITALS: BP 164/80; PULSE 78; RESP 18; O2SAT 96
== END 2020-07-08 04:56 | disposition home or self-care (01) ==
PROVIDERS: Emergency Provider Emergency Medicine; PCP Internal Medicine
DX: M79.661 Pain in right lower leg (principal); Z87.891 Personal history of nicotine dependence
CPT/HCPCS: 80048; 83735; 85025; 85379; 99282; A4216

== ENCOUNTER 2020-07-10 21:53 | Emergency (ER) | payer SELFPAY ==
[2020-07-10 21:54] VITALS: BP 149/86; PULSE 73; RESP 15; TEMP 36.3; O2SAT 99; BMI 34.4
--- NOTE | 2020-07-10 22:33 | CT_ITS ---
STUDY: CT BRAIN WITHOUT CONTRAST REASON FOR EXAM: Male, 40 years old. Dizziness and neck pain. RADIATION DOSAGE (If Supplied By Facility): CTDIvol = ( 44.99 ) mGy, DLP = ( 897.35 ) mGycm TECHNIQUE: Transaxial CT imaging of the brain was performed without administration of intravenous contrast material. Individualized dose optimization techniques were used for this CT. COMPARISON: No relevant priors. FINDINGS: There are calcified scalp nodules near the vertex of the skull. Normal calvarium. Normal size ventricles and extra-axial spaces for the patient''s age. Normal white matter tracts of the cerebral hemispheres. Normal basal ganglia and thalami. Normal brainstem. Normal cerebellum. There is no intracranial hemorrhage. There are no findings of an acute ischemic infarction. Mild mucosal thickening or retention cyst in the right maxillary sinus. CT/Brain/Head without Contrast IMPRESSION: No acute intracranial process. Electronically Signed: Wilbert Bravo MD at 23:29 EDT Tel , Service support ,
--- NOTE | 2020-07-10 22:35 | ED.DCSUM_ITS ---
- ER Visit Summary Date of Service: 07/10/20 Chief Complaint: Dizziness, headache, and neck pain History of Present Illness: The patient is a 40 M who presents with dizziness, neck pain, and headache that began yesterday. Patient states the dizziness feels like he is off balance. Patient states this is worse with standing and walking. Patient states it is also worse with playing video games. Patient describes his headache as throbbing and is localized to the frontal area. Patient states his neck pain is sharp and constant. Patient states his dizziness is better when he lays flat. Patient denies any visual changes. Patient admits to nausea but denies any vomiting. Physical Examination: Vital signs are stable. Patient is afebrile. Patient is in no acute distress. Pupils are equal, round, and reactive to light bilaterally. Extraocular muscles are intact. There is no nystagmus noted. Neck is supple. Trachea is midline. There is cervical paraspinal tenderness. There is no midline tenderness. Oral mucosa is pink and moist. Heart was regular rate and rhythm. Lungs are clear and equal bilaterally. Abdomen is soft and nontender. Cranial nerves II through XII are intact. There are no focal motor or sensory deficits noted. Test Results: CBC and comprehensive metabolic profile were essentially within normal limits. Urinalysis does not show any evidence of urinary tract infection. CT scan of the brain was obtained. There is no acute intracranial abnormality. This was interpreted by the radiologist and reviewed by myself. Emergency Department Course and Treatment: Patient was given IV fluids and meclizine here. Patient still complained of some dizziness on reevaluation. However, the patient was sitting up in bed and moving his head without any evidence of dizziness. Patient was given a repeat dose of meclizine. Patient was instructed to drink plenty of fluids. Patient was instructed to follow-up with his primary care physician in 5 to 7 days. Patient understood and was agreeable with the plan. All questions were answered. Disposition: Discharge home Impression: Dizziness This note was generated with [employer] dictation software. It may contain incorrect words, spelling, and punctuation that were not noted in review of the chart prior to signing ED Disposition - Plan for ED Patient: Disposition: Home or Assisted Living Diagnosis: Dizziness Instructions: ED Dizziness [facility] Prescriptions: Meclizine HCl [Antivert] 25 mg PO TID PRN PRN #20 tab PRN Reason: Dizziness Prescription Printed Referrals: Louie Fukn MD [Primary Care Provider] - 5-7 Days
[2020-07-10 22:55] LABS: Absolute Lymphocyte Count 2.68 X10^3/uL (0.83-4.51); Absolute Neutrophil Count 3.7 X10^3/uL (2.0-7.7); Basophil# 0.05 X10^3/uL; Basophil% 0.7 % (0-1); Eosinophils% 1.4 % (0-5); Hematocrit 41.1 % (40-54); Hemoglobin 13.9 g/dL (13.0-16.5); Lymphocyte # 2.68 X10^3/ul (4.0); Lymphocyte % 36.5 % (19-41); Mean Corp Hgb Conc 33.8 g/dL (32-36); Mean Corpuscular Hgb 31.4 pg (27.0-32.0); Monocyte# 0.85 X10^3/uL; Monocyte% 11.6 % (0-10); NRBC Flagged by Analyzer 0 % (0-5); Neutrophil # 3.65 X10^3/uL (2.7-7.7); Neutrophil % 49.7 % (47-70); Platelet Count 252 K/mm3 (150-450); RBC Distribution Width CV 12.7 % (11.6-14.6); RBC Distribution Width SD 43.1 fl (35.1-43.9); Red Blood Count 4.42 M/mm3 (4.6-6.2); White Blood Count 7.3 K/mm3 (4.4-11.0)
[2020-07-10 22:58] VITALS: BP 129/66; BP 134/78; BP 140/86; PULSE 65; PULSE 83
[2020-07-10] MEDS: 0.9% Normal Saline 1,000 ML 1000 ML IV (22:59)
[2020-07-10 23:13] LABS: ALB/GLOB Ratio 1.1 RATIO (0.9-2.4); AST(SGOT) 14 U/L (15-37); Alanine Aminotransfer ALT/SGPT 24 U/L (16-61); Albumin, Serum 3.7 g/dL (3.2-5.0); Alkaline Phosphatase 82 U/L (45-117); Anion Gap 6 (5-15); BUN 9 mg/dL (7-18); BUN/Creat Ratio 8.9 RATIO (10-20); Calcium,Total 8.5 mg/dL (8.5-10.1); Chloride 109 mmol/L (98-107); Creatinine, Serum 1.01 mg/dL (0.70-1.30); EST Glomerular Filtration Rate 87 mL/min (>60); Est Glom Filt Rate - Afr Amer 105 mL/min (>60); Estimated Creatinine Clearance 75.08 ml/min; Globulin 3.4 g/dL (2.2-4.2); Glucose 105 mg/dL (74-106); Potassium 3.4 mmol/L (3.5-5.1); Protein, Total 7.1 g/dL (6.4-8.2); Sodium Level 140 mmol/L (136-145)
[2020-07-10] MEDS: Meclizine HCl 25 MG Tablet PO (23:27)
[2020-07-10 23:45] LABS: Bacteria 0 SEEN /hpf (None Seen); Mucous, Urine 0 SEEN /hpf (<or=2+); Red Blood Cells-Urine 0 SEEN /hpf (0-5); Squamous Epithelial Cells - UA 0 SEEN /hpf (0-5); White Blood Cells 0 SEEN /hpf (0-5)
[2020-07-10 23:49] LABS: Color, Urine Yellow (Yellow); Glucose, Dipstick Normal (Normal); Ketone-Dipstick Negative (Negative); Leukocyte Esterase-Dipstick Negative /ul (Negative); Nitrite-Dipstick Negative (Negative); Occult Blood-Urine Negative /ul (Negative); Protein-Dipstick Negative (Negative); Urine Bilirubin Dipstick Negative (Negative); Urine Clarity Clear (Clear); Urine Urobilinogen 1 mg/dl (Normal); Urine pH 6.5 (5.0 - 8.0)
[2020-07-11 00:49] VITALS: BP 117/63; PULSE 59; RESP 12; O2SAT 100
[2020-07-11] MEDS: Meclizine HCl 25 MG Tablet PO (00:53)
== END 2020-07-11 01:01 | disposition home or self-care (01) ==
PROVIDERS: Emergency Provider Emergency Medicine; PCP Internal Medicine
DX: R42 Dizziness and giddiness (principal); Z87.891 Personal history of nicotine dependence
CPT/HCPCS: 70450; 80053; 81001; 85025; 96360; 96361; 99285; J7030; A4216

== ENCOUNTER 2020-08-11 08:04 | Emergency (ER) | payer SELFPAY ==
[2020-08-11 08:07] VITALS: BP 153/83; PULSE 77; RESP 16; TEMP 35.7; O2SAT 100; BMI 36.6
--- NOTE | 2020-08-11 08:15 | ED.DCSUM_ITS ---
History of Present Illness Chief Complaint: Flank Pain Informant: Patient Onset: Days Context: Gradual Onset Timing: Intermittent Current Severity: Mild Maximum Severity: Moderate Narrative: The patient is a 40-year-old male with no significant medical history the presents to the emergency department multiple complaints. Patient states that over the past few days, he has had some difficulty moving his bowels. He states this is not atypical for him. He states some days, he will try to go and will strain with no bowel movements. He states over the past 2 days, he is had some cramping pain diffusely in his abdomen. He is also had some pain in his right flank. He states it comes in waves. He states he did move his bowels yesterday and described the stool as green. He has not had fever or chills. He has no history of prior bowel surgery. He denies any history of inflammatory bowel disease. Prior similar symptoms: No Recent Illness/Hospitalization: No Past Medical History - Allergies and Home Meds Allergies/Adverse Reactions: Allergies naproxen Adverse Reaction (Verified 08/11/20 08:06) Nausea Primary Care Physician: Louie Funk MD [Primary Care Provider] - Prior records reviewed: Yes Past Medical History: None Surgical History: no surgical history Smoking Status: Current every day smoker Review of Systems General: Denies: Chills, Fever, Sweats Eyes: Denies: Visual changes - bilaterally, Diplopia ENT: Denies: Rhinorrhea, Sore throat Cardiovascular: Denies: Chest pain, Palpitations Respiratory: Denies: Dyspnea, Cough, Dyspnea on exertion Gastrointestinal: Reports: Abdominal pain, Constipation. Denies: Nausea, Vomiting, Diarrhea, Melena, Hematochezia Genitourinary: Denies: Dysuria, Hematuria, Frequency Musculoskeletal: Denies: Back pain, Extremity Pain Skin: Denies: Rash, Wounds Neurological: Denies: Headache, Weakness, Numbness Physical Exam Vital Signs/Narrative: Vital Signs Temp Pulse Resp BP Pulse Ox 08/11/20 08:07 96.2 F L 77 16 153/83 H 100 Inital Vital Signs reviewed: Yes General: Well nourished, Well developed, No Acute Distress Head: Normocephalic, Atraumatic Eyes: Perrl, EOMI ENT: Moist mucous membranes, No rhinorrhea Neck: Supple, Nontender Cardiovascular: Regular rate, Regular rhythm, No murmurs Respiratory: No distress, CTA bilaterally, Chest nontender Abdomen: Soft, Nondistended, Normal bowel sounds, Tender. Negative for: Guarding, Rebound tenderness, Hyperactive bowel sounds Back: Nontender, Normal Inspection Extremities: Nontender, No edema Skin: Normal color, No rash Neurological: Alert, Oriented x3, Cranial nerves II-XII grossly intact, Normal Strength, Normal Sensation Psychological: Normal affect, Normal Mood Diagnostic/Tx/Re-eval Clinical Impression(s) from Imaging Studies Acute Abdomen Series 08/11/20 08:15 IMPRESSION: Moderate amount of fecal material is seen in the colon. Electronically Signed: Goran Lobato, at 9:55 EDT , Service support , Abnormal Lab Results 08/11/20 08/11/20 08/11/20 08:15 08:30 08:30 WBC 5.5 RBC 4.83 Hgb 15.7 Hct 44.7 MCV 92.5 MCH 32.5 H MCHC 35.1 RDW Std Deviation 42.1 RDW Coeff of Lior 12.3 Plt Count 263 MPV 9.3 Immature Gran % (Auto) 0.200 Neut % (Auto) 53.2 Lymph % (Auto) 32.4 [place] % (Auto) 12.6 H Eos % (Auto) 1.1 Baso % (Auto) 0.5 Absolute Neuts (auto) 2.9 Absolute Lymphs (auto) 1.77 Nucleated RBC % 0 Sodium 140 Potassium 3.8 Chloride 105 Carbon Dioxide 29.0 Anion Gap 6 BUN 10 Creatinine 1.01 Estim Creat Clear Calc 75.08 Est GFR (MDRD) Af Amer 105 Est GFR (MDRD) Non-Af 87 BUN/Creatinine Ratio 9.9 L Glucose 100 Calcium 9.0 Total Bilirubin 1.40 H AST 24 ALT 30 Alkaline Phosphatase 92 Total Protein 8.2 Albumin 4.3 Globulin 3.9 Albumin/Globulin Ratio 1.1 Lipase 105 Urine Color Yellow Urine Clarity Clear Urine pH 6.5 Ur Specific [place] 1.005 Urine Protein Negative Urine Glucose (UA) Normal Urine Ketones Negative Urine Occult Blood Negative Urine Nitrite Negative Urine Bilirubin Negative Urine Urobilinogen Normal Ur Leukocyte Esterase Negative Urine RBC 0 SEEN Urine WBC 0 SEEN Ur Squamous Epith Cells 0 SEEN Urine Bacteria 0 SEEN Urine Mucus 0 SEEN - Medical Decision Making Patient presents with constipation, abdominal cramping, and midepigastric pain. He is afebrile. He has minimal tenderness is reproducible without rebound or guarding. Metabolic work-up was pursued and is unremarkable. Plain films were obtained. There is no evidence of obstruction or free air. Patient is given fluids and Toradol with improvement of his symptoms. There is a significant stool burden on his x-ray. His symptoms are consistent with constipation. I will initiate the patient magnesium citrate, Colace, and Bentyl. I do feel that he safe outpatient follow-up. He is comfortable with this plan of care. Impression 1. Constipation 2. Abdominal pain ED Disposition - Plan for ED Patient: Instructions: ED Unknown Causes of Abdominal Pain Male Prescriptions: Dicyclomine HCl [Bentyl] 20 mg PO TIDAC #20 cap Prescription Printed Docusate Sodium [Colace] 100 mg PO DAILY #20 cap Prescription Printed Referrals: Louie Funk MD [Primary Care Provider] -
--- NOTE | 2020-08-11 08:15 | RAD_ITS ---
STUDY: X-RAY - ACUTE ABDOMINAL SERIES REASON FOR EXAM: Male, 40 years old. RUQ AN RT FLANK PAIN SINCE SATURDAY. POSSIBLE GALL BLADDER DISEASE? TECHNIQUE: Single view of the chest. Supine, and erect view(s) of the abdomen were obtained. COMPARISON: Comparison is made with prior chest radiograph dated 07/01/2020. FINDINGS: The lungs are clear and expanded. Normal size heart. Normal mediastinum and rachel. Normal visualized pulmonary arteries. Normal visualized aortic arch and descending thoracic aorta. There is a moderate amount of colonic fecal material. The soft tissue structures of the abdomen and pelvis are unremarkable. Normal visualized osseous structures. RAD/Acute Abdomen Inc Chest IMPRESSION: Moderate amount of fecal material is seen in the colon. Electronically Signed: Goran Lobato, at 9:55 EDT , Service support ,
[2020-08-11] MEDS: Ketorolac 30 MG/ML Syringe IV (08:34)
[2020-08-11] MEDS: 0.9% Normal Saline 1,000 ML 1000 ML IV (08:34)
[2020-08-11] MEDS: Ondansetron 4 MG/2 ML Vial IV (08:34)
[2020-08-11 08:36] LABS: Absolute Lymphocyte Count 1.77 X10^3/uL (0.83-4.51); Absolute Neutrophil Count 2.9 X10^3/uL (2.0-7.7); Basophil# 0.03 X10^3/uL; Basophil% 0.5 % (0-1); Eosinophil# 0.06 X10^3/uL; Eosinophils% 1.1 % (0-5); Hematocrit 44.7 % (40-54); Hemoglobin 15.7 g/dL (13.0-16.5); Lymphocyte # 1.77 X10^3/ul (4.0); Lymphocyte % 32.4 % (19-41); Mean Corp Hgb Conc 35.1 g/dL (32-36); Mean Corpuscular Hgb 32.5 pg (27.0-32.0); Mean Corpuscular Volume 92.5 fL (80-94); Mean Platelet Vol. 9.3 fl (6.2-12.0); Monocyte# 0.69 X10^3/uL; Monocyte% 12.6 % (0-10); NRBC Flagged by Analyzer 0 % (0-5); Neutrophil # 2.91 X10^3/uL (2.7-7.7); Neutrophil % 53.2 % (47-70); Platelet Count 263 K/mm3 (150-450); RBC Distribution Width CV 12.3 % (11.6-14.6); RBC Distribution Width SD 42.1 fl (35.1-43.9); Red Blood Count 4.83 M/mm3 (4.6-6.2); White Blood Count 5.5 K/mm3 (4.4-11.0)
[2020-08-11 08:59] LABS: Bacteria 0 SEEN /hpf (None Seen); Mucous, Urine 0 SEEN /hpf (<or=2+); Red Blood Cells-Urine 0 SEEN /hpf (0-5); Squamous Epithelial Cells - UA 0 SEEN /hpf (0-5); White Blood Cells 0 SEEN /hpf (0-5)
[2020-08-11 09:00] LABS: Color, Urine Yellow (Yellow); Glucose, Dipstick Normal (Normal); Ketone-Dipstick Negative (Negative); Leukocyte Esterase-Dipstick Negative /ul (Negative); Nitrite-Dipstick Negative (Negative); Occult Blood-Urine Negative /ul (Negative); Protein-Dipstick Negative (Negative); Specific Gravity, Urine 1.005 (1.002-1.030); Urine Bilirubin Dipstick Negative (Negative); Urine Clarity Clear (Clear); Urine Urobilinogen Normal (Normal); Urine pH 6.5 (5.0 - 8.0)
[2020-08-11 09:00] LABS: ALB/GLOB Ratio 1.1 RATIO (0.9-2.4); AST(SGOT) 24 U/L (15-37); Alanine Aminotransfer ALT/SGPT 30 U/L (16-61); Albumin, Serum 4.3 g/dL (3.2-5.0); Alkaline Phosphatase 92 U/L (45-117); Anion Gap 6 (5-15); BUN 10 mg/dL (7-18); BUN/Creat Ratio 9.9 RATIO (10-20); Chloride 105 mmol/L (98-107); Creatinine, Serum 1.01 mg/dL (0.70-1.30); EST Glomerular Filtration Rate 87 mL/min (>60); Est Glom Filt Rate - Afr Amer 105 mL/min (>60); Estimated Creatinine Clearance 75.08 ml/min; Globulin 3.9 g/dL (2.2-4.2); Glucose 100 mg/dL (74-106); Lipase 105 U/L (73-393); Potassium 3.8 mmol/L (3.5-5.1); Protein, Total 8.2 g/dL (6.4-8.2); Sodium Level 140 mmol/L (136-145)
[2020-08-11] MEDS: Magnesium Citrate 300 ML PO (10:41)
[2020-08-11 10:42] VITALS: BP 139/87; PULSE 83
== END 2020-08-11 10:54 | disposition home or self-care (01) ==
PROVIDERS: Emergency Provider Emergency Medicine; PCP Internal Medicine
DX: K59.00 Constipation, unspecified (principal); R10.84 Generalized abdominal pain; F17.200 Nicotine dependence, unspecified, uncomplicated
CPT/HCPCS: 74022; 80053; 81001; 83690; 85025; 96361; 96374; 96375; 99283; J7030; A4216; J2405

== ENCOUNTER 2020-12-02 19:11 | Emergency (ER) | payer SELFPAY ==
[2020-12-02 19:12] VITALS: BP 164/94; PULSE 83; RESP 16; TEMP 35.5; O2SAT 99; BMI 34.7
[2020-12-02 19:35] VITALS: O2SAT 98
--- NOTE | 2020-12-02 19:35 | EKG12_ITS ---
Test Reason : CP Blood Pressure : / mmHG Vent. Rate : 078 BPM Atrial Rate : 078 BPM P-R Int : 128 ms QRS Dur : 092 ms QT Int : 368 ms P-R-T Axes : 051 038 034 degrees QTc Int : 419 ms Normal sinus rhythm Normal ECG Confirmed by JORDI PAN MD ([id number]), photographic editor JOHN MCGINNIS ([id number]) on 12/05/2020 9:43:33 AM Referred By: DC Confirmed By:JORDI PAN MD
--- NOTE | 2020-12-02 19:46 | US_ITS ---
STUDY: VENOUS DOPPLER ULTRASOUND - LEFT LOWER EXTREMITY REASON FOR EXAM: Male, 40 years old. LT CALF PAIN TECHNIQUE: Ultrasound evaluation of the deep vein system to include kaye-scale imaging and compression was performed. Kaye-scale imaging and Doppler sonographic evaluation, including duplex spectral analysis and qualitative color flow sonography, was performed. COMPARISON: None. FINDINGS: Common Femoral Vein: Normal compression, spontaneity and augmentation. Normal color Doppler. Common Femoral Vein/Greater Saphenous Junction: Normal compression, spontaneity and augmentation. Normal color Doppler. Deep Femoral Vein: Normal compression, spontaneity and augmentation. Normal color Doppler. Femoral Proximal: Normal compression, spontaneity and augmentation. Normal color Doppler. Femoral Middle: Normal compression, spontaneity and augmentation. Normal color Doppler. Femoral Distal: Normal compression, spontaneity and augmentation. Normal color Doppler. Popliteal Vein: Normal compression, spontaneity and augmentation. Normal color Doppler. Posterior Tibial Vein: Normal compression, spontaneity and augmentation. Normal color Doppler. Peroneal Vein: Normal compression, spontaneity and augmentation. Normal color Doppler. US/Venous Duplex Imag/Limited/Uni IMPRESSION: Normal venous Doppler ultrasound of the lower extremity. Electronically Signed: Tj Mcdowell MD at 20:49 EST , Service support ,
[2020-12-02] MEDS: 0.9% Normal Saline 1,000 ML 1000 ML IV (19:50)
[2020-12-02] MEDS: Aspirin 81 MG TAB.CHEW 324 MG PO (19:51)
[2020-12-02 19:55] LABS: Absolute Lymphocyte Count 3.32 X10^3/uL (0.83-4.51); Absolute Neutrophil Count 4.4 X10^3/uL (2.0-7.7); Basophil# 0.06 X10^3/uL; Basophil% 0.7 % (0-1); Eosinophil# 0.13 X10^3/uL; Eosinophils% 1.5 % (0-5); Hematocrit 43.2 % (40-54); Hemoglobin 14.7 g/dL (13.0-16.5); Lymphocyte # 3.32 X10^3/ul (4.0); Lymphocyte % 37.8 % (19-41); Mean Corpuscular Hgb 31.3 pg (27.0-32.0); Mean Corpuscular Volume 92.1 fL (80-94); Mean Platelet Vol. 9.1 fl (6.2-12.0); Monocyte# 0.85 X10^3/uL; Monocyte% 9.7 % (0-10); NRBC Flagged by Analyzer 0 % (0-5); Neutrophil # 4.41 X10^3/uL (2.7-7.7); Neutrophil % 50.1 % (47-70); Platelet Count 309 K/mm3 (150-450); RBC Distribution Width CV 12.2 % (11.6-14.6); RBC Distribution Width SD 41.1 fl (35.1-43.9); Red Blood Count 4.69 M/mm3 (4.6-6.2); White Blood Count 8.8 K/mm3 (4.4-11.0)
--- NOTE | 2020-12-02 20:05 | RAD_ITS ---
STUDY: X-RAY CHEST REASON FOR EXAM: Male, 40 years old. INTERMITTENT CHEST PAIN X COUPLE WEEKS TECHNIQUE: AP portable COMPARISON: 07/01/2020 FINDINGS: The lungs are clear and expanded. There is no demonstrated pleural abnormality. Normal size heart. Normal mediastinum and rachel. Normal visualized pulmonary arteries. Normal visualized aortic arch and descending thoracic aorta. Normal visualized thoracic spine. Normal visualized ribs, clavicles, and shoulders. There is no demonstrated abnormality of the visualized soft tissue structures of the upper abdomen. No significant change since prior exam RAD/Chest 1 View (Portable) IMPRESSION: Normal x-ray examination of the chest. Electronically Signed: Tj Mcdowell MD at 20:35 EST , Service support ,
[2020-12-02 20:06] LABS: Anion Gap 5 (5-15); BUN 21 mg/dL (7-18); BUN/Creat Ratio 17.9 RATIO (10-20); Calcium,Total 9.4 mg/dL (8.5-10.1); Chloride 105 mmol/L (98-107); Creatinine, Serum 1.17 mg/dL (0.70-1.30); EST Glomerular Filtration Rate 73 mL/min (>60); Est Glom Filt Rate - Afr Amer 89 mL/min (>60); Estimated Creatinine Clearance 64.81 ml/min; Glucose 95 mg/dL (74-106); Potassium 3.5 mmol/L (3.5-5.1); Sodium Level 138 mmol/L (136-145)
[2020-12-02 20:15] LABS: D-Dimer Quantitative (DVT/PE) < 0.27 FEU/ug/m (0.27-0.49)
--- NOTE | 2020-12-02 20:45 | ED.VISSUMM ---
- ER Visit Summary Date of Service: 12/02/20 Chief Complaint: Chest pain and left calf pain History of Present Illness: The patient is a 40 M who sees a physician at [facility] whose name he does not know. He reports that he has chest pain that began yesterday. Intermittent pain the last 5 minutes at a time. Describes it as stabbing. 6/10 worsening he is pain-free currently. Is worsened by nothing including exertion, deep breaths, or movement of his arm. Is also relieved by nothing. Reports he has mild shortness of breath and nausea. He denies any vomiting or diaphoresis. Patient reports he has left calf pain is comes and goes since September. It began again today. Says sharp pain is 7-10 at worst and 4-10 currently. Is increased with walking. Is decreased with rest. He denies any recent trauma. No fall, MVA, or change in activity. Review of systems is otherwise negative. Physical Examination: Vitals: Stable. Afebrile. General: Well-nourished and well-developed. Head: Normocephalic atraumatic. Neck: Supple, no lymphadenopathy. No JVD. Nontender. Cardiovascular: Regular rate and rhythm. No murmurs. Respiratory: No respiratory distress. Clear to auscultation bilaterally. Abdominal: Soft, nontender, nondistended, normal bowel sounds. No guarding, rebound, or peritoneal signs. Back: Nontender. Extremities: Mild left calf tenderness, no edema. Skin: Normal color, no rash. Neurologic: Alert and oriented ?3. Cranial nerves II through XII are intact. Normal strength and sensation. Psych: Normal affect. Test Results: EKG is sinus at 78 with no acute changes. Is unchanged from June of last year. Troponin is negative. D-dimer is negative. Chem-7 shows a BUN of 21. CBC is normal. Left lower extremity Doppler is negative. Clinical Impression(s) from Imaging Studies Chest X-Ray 12/02/20 20:05 IMPRESSION: Normal x-ray examination of the chest. Electronically Signed: Tj Mcdowell MD at 20:35 EST , Service support , Emergency Department Course and Treatment: Patient was treated with aspirin and is resting comfortably. Treatment Plan: Patient will be discharged with symptomatic care. Use Tylenol and/or ibuprofen for pain. Stretch the area. Follow-up his primary care physician in 3 to 5 days if not improving. Return to the emergency department for any worsening symptoms. Disposition: To home in improved and stable condition. Impression: 1. Atypical chest pain. 2. Left calf pain. This note was generated with [employer] dictation software. It may contain incorrect words, spelling, and punctuation that were not noted in review of the chart prior to signing ED Disposition - Plan for ED Patient: Instructions: ED Chest Pain, Uncertain Cause Referrals: Louie Funk MD [Primary Care Provider] - 3-5 Days if not improving
[2020-12-02 20:55] VITALS: BP 135/78; PULSE 83; RESP 16; O2SAT 97
== END 2020-12-02 20:56 | disposition home or self-care (01) ==
LOC: ED 20:43
PROVIDERS: Emergency Provider Emergency Medicine
DX: M79.662 Pain in left lower leg (principal); R07.89 Other chest pain; Z87.891 Personal history of nicotine dependence
CPT/HCPCS: 71045; 80048; 84484; 85025; 85379; 93005; 93971; 96360; 99285; J7030

== ENCOUNTER 2020-12-16 12:50 | Emergency (ER) | payer SELFPAY ==
[2020-12-16 12:50] VITALS: BP 146/96; PULSE 82; RESP 17; TEMP 36.1; O2SAT 98; BMI 34.7
--- NOTE | 2020-12-16 13:02 | ED.DCSUM_ITS ---
History of Present Illness Chief Complaint: Abd Pain Informant: Patient Narrative: 40-year-old male presents with right lower quadrant right flank pain. Tells me the symptoms began around 03 100 today. He states that the pain is very sharp and comes and goes. States that he has been urinating more than normally. He also states that he was very constipated this morning having to strain to get hard stool out. No prior history of kidney stones or any abdominal surgeries. He states he does not take any prescription medications. No fevers. Past Medical History - Allergies and Home Meds Allergies/Adverse Reactions: Allergies naproxen Adverse Reaction (Verified 12/16/20 12:50) Nausea Primary Care Physician: Care Physician,No Primary [NON-STAFF] - Past Medical History: None Surgical History: no surgical history Smoking Status: Former smoker Drugs: None Review of Systems General: Denies: Chills, Fever, Sweats Eyes: Denies: Visual changes - bilaterally, Diplopia ENT: Denies: Rhinorrhea, Sore throat Cardiovascular: Denies: Chest pain, Palpitations Respiratory: Denies: Dyspnea, Cough, Dyspnea on exertion Gastrointestinal: Reports: Abdominal pain, Constipation. Denies: Nausea, Vomiting, Diarrhea, Melena, Hematochezia Genitourinary: Denies: Dysuria, Hematuria, Frequency Musculoskeletal: Denies: Back pain, Extremity Pain Skin: Denies: Rash, Wounds Neurological: Denies: Headache, Weakness, Numbness Physical Exam Vital Signs/Narrative: Vital Signs Temp Pulse Resp BP Pulse Ox 12/16/20 12:50 97.0 F L 82 17 146/96 H 98 Inital Vital Signs reviewed: Yes General: Well nourished, Well developed, No Acute Distress Head: Normocephalic, Atraumatic Eyes: Perrl, EOMI ENT: Moist mucous membranes, No rhinorrhea Neck: Supple, Nontender Cardiovascular: Regular rate, Regular rhythm, No murmurs Respiratory: No distress, CTA bilaterally, Chest nontender Abdomen: Soft, Nondistended, Normal bowel sounds, Tender - Mild diffuse tende rness to palpation without guarding or rebound. No focal localization.. Negative for: Guarding, Rebound tenderness Back: Nontender, Normal Inspection. Negative for: CVA tenderness Extremities: Nontender, No edema Skin: Normal color, No rash Neurological: Alert, Oriented x3, Cranial nerves II-XII grossly intact, Normal Strength, Normal Sensation Psychological: Normal affect, Normal Mood Diagnostic/Tx/Re-eval Clinical Impression(s) from Imaging Studies Abdomen/Pelvis CT 12/16/20 13:02 IMPRESSION: Normal unenhanced CT of the abdomen and pelvis. Electronically Signed: Goran Lobato MD at 13:36 EST , Service support , Laboratory Last Values WBC 6.9 K/mm3 (4.4-11.0) 12/16/20 13:12 RBC 4.62 M/mm3 (4.6-6.2) 12/16/20 13:12 Hgb 14.7 g/dL (13.0-16.5) 12/16/20 13:12 Hct 42.3 % (40-54) 12/16/20 13:12 MCV 91.6 fL (80-94) 12/16/20 13:12 MCH 31.8 pg (27.0-32.0) 12/16/20 13:12 MCHC 34.8 g/dL (32-36) 12/16/20 13:12 RDW Std Deviation 40.0 fl (35.1-43.9) 12/16/20 13:12 RDW Coeff of Lior 12.0 % (11.6-14.6) 12/16/20 13:12 Plt Count 300 K/mm3 (150-450) 12/16/20 13:12 MPV 9.0 fl (6.2-12.0) 12/16/20 13:12 Immature Gran % (Auto) 0.300 % (0.0-0.9) 12/16/20 13:12 Neut % (Auto) 59.5 % (47-70) 12/16/20 13:12 Lymph % (Auto) 28.0 % (19-41) 12/16/20 13:12 [place] % (Auto) 10.9 % (0-10) H 12/16/20 13:12 Eos % (Auto) 0.6 % (0-5) 12/16/20 13:12 Baso % (Auto) 0.7 % (0-1) 12/16/20 13:12 Absolute Neuts (auto) 4.1 X10^3/uL (2.0-7.7) 12/16/20 13:12 Absolute Lymphs (auto) 1.93 X10^3/uL (0.83-4.51) 12/16/20 13:12 Nucleated RBC % 0 % (0-5) 12/16/20 13:12 Sodium 137 mmol/L (136-145) 12/16/20 13:12 Potassium 3.6 mmol/L (3.5-5.1) 12/16/20 13:12 Chloride 104 mmol/L (98-107) 12/16/20 13:12 Carbon Dioxide 26.0 mmol/L (21.0-32.0) 12/16/20 13:12 Anion Gap 7 (5-15) 12/16/20 13:12 BUN 10 mg/dL (7-18) 12/16/20 13:12 Creatinine 1.05 mg/dL (0.70-1.30) 12/16/20 13:12 Estim Creat Clear Calc 72.22 ml/min 12/16/20 13:12 Est GFR (MDRD) Af Amer 100 mL/min (>60) 12/16/20 13:12 Est GFR (MDRD) Non-Af 83 mL/min (>60) 12/16/20 13:12 BUN/Creatinine Ratio 9.5 RATIO (10-20) L 12/16/20 13:12 Glucose 96 mg/dL (74-106) 12/16/20 13:12 Calcium 8.5 mg/dL (8.5-10.1) 12/16/20 13:12 Urine Color Yellow (Yellow) 12/16/20 14:13 Urine Clarity Clear (Clear) 12/16/20 14:13 Urine pH 6.0 (5.0 - 8.0) 12/16/20 14:13 Ur Specific [place] 1.015 (1.002-1.030) 12/16/20 14:13 Urine Protein Negative mg/dl (Negative) 12/16/20 14:13 Urine Glucose (UA) Normal mg/dl (Normal) 12/16/20 14:13 Urine Ketones Negative mg/dl (Negative) 12/16/20 14:13 Urine Occult Blood Negative /ul (Negative) 12/16/20 14:13 Urine Nitrite Negative (Negative) 12/16/20 14:13 Urine Bilirubin Negative mg/dL (Negative) 12/16/20 14:13 Urine Urobilinogen Normal mg/dl (Normal) 12/16/20 14:13 Ur Leukocyte Esterase Negative /ul (Negative) 12/16/20 14:13 Urine RBC 0 SEEN /hpf (0-5) 12/16/20 14:13 Urine WBC 0 SEEN /hpf (0-5) 12/16/20 14:13 Ur Squamous Epith Cells 0 SEEN /hpf (0-5) 12/16/20 14:13 Urine Bacteria 0 SEEN /hpf (None Seen) 12/16/20 14:13 Urine Mucus 0 SEEN /hpf (<or=2+) 12/16/20 14:13 - Medical Decision Making Basic work-up here is negative. Patient is having hard stools and I wonder if this intermittent pain is related to his constipation. I will place him on a stool softener and give him a dose of magnesium citrate. Follow-up primary care return if worsening or concerns ED Disposition - Plan for ED Patient: Disposition: Home or Assisted Living Diagnosis: Acute abdominal pain, Constipation Instructions: ED Constipation (Adult) Prescriptions: Magnesium Citrate [Citrate Of Magnesia] 300 ml PO X1 #1 bottle Prescription Printed Docusate Sodium [Colace] 100 mg PO DAILY #20 cap Prescription Printed Referrals: Manju Chávez [NON-STAFF] - As Needed
--- NOTE | 2020-12-16 13:02 | CT_ITS ---
STUDY: CT ABDOMEN AND PELVIS WITHOUT CONTRAST REASON FOR EXAM: Male, 40 years old. RT FLANK PAIN, NAUSEA, CONSTIPATION RADIATION DOSAGE (If Supplied By Facility): CTDIvol = ( 11.42 ) mGy, DLP = ( 573.67 ) mGycm TECHNIQUE: Transaxial images were obtained from the dome of the diaphragm to the symphysis pubis without oral contrast, and without intravenous contrast. Sagittal and coronal images were reconstructed. Individualized dose optimization techniques were used for this CT. COMPARISON: Comparison is made with prior study dated 06/04/2020. FINDINGS: Stable linear scarring and/or atelectasis at the left lung base. The visualized portions of the heart are within normal limits. Normal liver. Normal gallbladder and extrahepatic biliary system. Normal spleen. Normal pancreas. Normal bilateral adrenal glands. Normal right kidney. Normal left kidney. Normal visualized stomach. Normal small intestine. Normal colon. The appendix is visualized and appears normal. Normal abdominal aorta. Normal inferior vena cava. Normal retroperitoneum. Normal urinary bladder. Normal abdominal wall. Normal osseous structures. CT/Abdomen/Pelvis without Cont IMPRESSION: Normal unenhanced CT of the abdomen and pelvis. Electronically Signed: Goran Lobato MD at 13:36 EST , Service support ,
[2020-12-16 13:27] LABS: Absolute Lymphocyte Count 1.93 X10^3/uL (0.83-4.51); Absolute Neutrophil Count 4.1 X10^3/uL (2.0-7.7); Basophil# 0.05 X10^3/uL; Basophil% 0.7 % (0-1); Eosinophil# 0.04 X10^3/uL; Eosinophils% 0.6 % (0-5); Hematocrit 42.3 % (40-54); Hemoglobin 14.7 g/dL (13.0-16.5); Lymphocyte # 1.93 X10^3/ul (4.0); Mean Corp Hgb Conc 34.8 g/dL (32-36); Mean Corpuscular Hgb 31.8 pg (27.0-32.0); Mean Corpuscular Volume 91.6 fL (80-94); Monocyte# 0.75 X10^3/uL; Monocyte% 10.9 % (0-10); NRBC Flagged by Analyzer 0 % (0-5); Neutrophil % 59.5 % (47-70); Platelet Count 300 K/mm3 (150-450); Red Blood Count 4.62 M/mm3 (4.6-6.2); White Blood Count 6.9 K/mm3 (4.4-11.0)
[2020-12-16 13:40] LABS: Anion Gap 7 (5-15); BUN 10 mg/dL (7-18); BUN/Creat Ratio 9.5 RATIO (10-20); Calcium,Total 8.5 mg/dL (8.5-10.1); Chloride 104 mmol/L (98-107); Creatinine, Serum 1.05 mg/dL (0.70-1.30); EST Glomerular Filtration Rate 83 mL/min (>60); Est Glom Filt Rate - Afr Amer 100 mL/min (>60); Estimated Creatinine Clearance 72.22 ml/min; Glucose 96 mg/dL (74-106); Potassium 3.6 mmol/L (3.5-5.1); Sodium Level 137 mmol/L (136-145)
[2020-12-16 14:18] LABS: Bacteria 0 SEEN /hpf (None Seen); Mucous, Urine 0 SEEN /hpf (<or=2+); Red Blood Cells-Urine 0 SEEN /hpf (0-5); Squamous Epithelial Cells - UA 0 SEEN /hpf (0-5); White Blood Cells 0 SEEN /hpf (0-5)
[2020-12-16 14:23] LABS: Color, Urine Yellow (Yellow); Glucose, Dipstick Normal (Normal); Ketone-Dipstick Negative (Negative); Leukocyte Esterase-Dipstick Negative /ul (Negative); Nitrite-Dipstick Negative (Negative); Occult Blood-Urine Negative /ul (Negative); Protein-Dipstick Negative (Negative); Specific Gravity, Urine 1.015 (1.002-1.030); Urine Bilirubin Dipstick Negative (Negative); Urine Clarity Clear (Clear); Urine Urobilinogen Normal (Normal)
[2020-12-16 15:00] VITALS: BP 140/79; PULSE 80; RESP 16; O2SAT 99
== END 2020-12-16 15:01 | disposition home or self-care (01) ==
PROVIDERS: Emergency Provider Emergency Medicine; PCP Nurse Practitioner Family
DX: K59.00 Constipation, unspecified (principal); R10.84 Generalized abdominal pain; Z87.891 Personal history of nicotine dependence
CPT/HCPCS: 74176; 80048; 81001; 85025; 99284; A4216

== ENCOUNTER 2020-12-24 06:20 | Emergency (ER) | payer SELFPAY ==
[2020-12-24 06:20] VITALS: BP 157/93; PULSE 69; RESP 17; TEMP 36.1; O2SAT 100; BMI 34.3
--- NOTE | 2020-12-24 06:24 | RAD_ITS ---
STUDY: X-RAY CHEST REASON FOR EXAM: Male, 40 years old. PT C/O SHARP STABBING PAIN IN UPPER LUNGS OFF AND ON FOR DAYS TECHNIQUE: Single AP portable view of the chest. COMPARISON: 12/02/2020 FINDINGS: The lungs are clear and expanded. There is no demonstrated pleural abnormality. Normal size heart. Normal mediastinum and rachel. Normal visualized pulmonary arteries. Normal visualized aortic arch and descending thoracic aorta. Normal visualized thoracic spine. Normal visualized ribs, clavicles, and shoulders. There is no demonstrated abnormality of the visualized soft tissue structures of the upper abdomen. RAD/Chest 1 View (Portable) IMPRESSION: Normal x-ray examination of the chest. Electronically Signed: Ronnie Harris MD at 6:53 EST Tel , Service support ,
--- NOTE | 2020-12-24 06:24 | EKG12_ITS ---
Test Reason : CP Blood Pressure : / mmHG Vent. Rate : 058 BPM Atrial Rate : 058 BPM P-R Int : 148 ms QRS Dur : 104 ms QT Int : 390 ms P-R-T Axes : 013 049 050 degrees QTc Int : 382 ms Sinus bradycardia Otherwise normal ECG Confirmed by ELI PEÑALOZA, SARAH ([id number]), supervising film or videotape editor JOHN MCGINNIS ([id number]) on 12/26/2020 12:19:50 PM Referred By: SUNNI Confirmed By:RICKI BENITEZ MD
--- NOTE | 2020-12-24 06:25 | ED.VIS.GEN ---
History of Present Illness Chief Complaint: Chest Pain Informant: Patient Onset: Yesterday Context: Gradual Onset Timing: Intermittent Current Severity: Mild Maximum Severity: Moderate Narrative: Patient is a 40-year-old male presents to the emergency department intermittent stabbing chest pain. He states that started yesterday. 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 He states sometimes it was a breathing but sometimes it was at rest. He states he tried ibuprofen and Tylenol which would seem to help, but then the pain would come back. He had a scant cough which he states is unchanged. He has no history of pulmonary embolus. He denies any history of coronary vascular disease. He states he is otherwise been in his normal state of health. Prior similar symptoms: No Recent Illness/Hospitalization: No Past Medical History - Allergies and Home Meds Allergies/Adverse Reactions: Allergies naproxen Adverse Reaction (Verified 12/16/20 12:50) Nausea Primary Care Physician: Guilherme Garces [employer] SHOP LABORER, [employer] SH[employer]ORER-C [Primary Care Provider] - Prior records reviewed: Yes Past Medical History: None Surgical History: no surgical history Smoking Status: Former smoker Review of Systems General: Denies: Chills, Fever, Sweats Eyes: Denies: Visual changes - bilaterally, Diplopia ENT: Denies: Rhinorrhea, Sore throat Cardiovascular: Reports: Chest pain. Denies: Palpitations Respiratory: Denies: Dyspnea, Cough, Dyspnea on exertion Gastrointestinal: Denies: Abdominal pain, Nausea, Vomiting, Diarrhea, Melena, Hematochezia Genitourinary: Denies: Dysuria, Hematuria, Frequency Musculoskeletal: Denies: Back pain, Extremity Pain Skin: Denies: Rash, Wounds Neurological: Denies: Headache, Weakness, Numbness Physical Exam Vital Signs/Narrative: Vital Signs Temp Pulse Resp BP Pulse Ox 12/24/20 06:20 96.9 F L 69 17 157/93 H 100 Inital Vital Signs reviewed: Yes General: Well nourished, Well developed, No Acute Distress Head: Normocephalic, Atraumatic Eyes: Perrl, EOMI ENT: Moist mucous membranes, No rhinorrhea Neck: Supple, Nontender Cardiovascular: Regular rate, Regular rhythm, No murmurs Respiratory: No distress, CTA bilaterally, Chest nontender Abdomen: Soft, Nontender, Nondistended, Normal bowel sounds Back: Nontender, Normal Inspection Extremities: Nontender, No edema Skin: Normal color, No rash Neurological: Alert, Oriented x3, Cranial nerves II-XII grossly intact, Normal Strength, Normal Sensation Psychological: Normal affect, Normal Mood Diagnostic/Tx/Re-eval Chest X-Ray - ED: 1 View, Read by ED Physician, Normal, Heart, Lungs, Mediastinum, Bony Structures Abnormal Lab Results 12/24/20 12/24/20 06:25 06:25 WBC 7.1 RBC 4.88 Hgb 15.4 Hct 46.2 MCV 94.7 H MCH 31.6 MCHC 33.3 RDW Std Deviation 42.5 RDW Coeff of Lior 12.2 Plt Count 303 MPV 9.1 Immature Gran % (Auto) 0.300 Neut % (Auto) 43.8 L Lymph % (Auto) 39.5 [place] % (Auto) 14.0 H Eos % (Auto) 2.0 Baso % (Auto) 0.4 Absolute Neuts (auto) 3.1 Absolute Lymphs (auto) 2.80 Nucleated RBC % 0 Sodium 138 Potassium 3.4 L Chloride 103 Carbon Dioxide 29.0 Anion Gap 6 BUN 19 H Creatinine 1.09 Estim Creat Clear Calc 69.57 Est GFR (MDRD) Af Amer 96 Est GFR (MDRD) Non-Af 79 BUN/Creatinine Ratio 17.4 Glucose 101 Calcium 9.3 Troponin I < 0.015 - Rhythm Strip Rhythm Strip: Sinus Rhythm Rate: 80 Ectopy: None - EKG Initial EKG Interpretation: Sinus Rhythm, No Acute Injury Pattern Prior: Unchanged - Medical Decision Making EKG was obtained on patient arrival. Was sinus rhythm without evidence of acute ischemia. The patient has a heart score of 1. His pain does seem muscular in nature, but we will obtain metabolic work-up. Chest x-ray is obtained. I did also obtain troponin and D-dimer. Both of these were within normal limits. His chest x-ray shows no evidence of cardiomegaly, infiltrate, or volume overload. Again, I do feel that his pain is likely muscular in nature. I will place him on Motrin. He is very low risk for cardiac causes. His D-dimer again is negative. He will be discharged home. Impression 1. Atypical chest pain ED Disposition - Plan for ED Patient: Instructions: ED Chest Wall Pain, Costochondritis Prescriptions: Ibuprofen [Motrin] 800 mg PO TID PRN PRN #20 tab PRN Reason: Pain/Inflammation Prescription Printed Referrals: Guilherme Garces NP, [employer]ER-[employer] [Primary Care Provider] -
[2020-12-24] MEDS: Aspirin 81 MG TAB.CHEW 324 MG PO (06:31)
[2020-12-24] MEDS: 0.9% Normal Saline 1,000 ML 150 ML IV (06:34)
[2020-12-24 06:37] LABS: Absolute Neutrophil Count 3.1 X10^3/uL (2.0-7.7); Basophil# 0.03 X10^3/uL; Basophil% 0.4 % (0-1); Eosinophil# 0.14 X10^3/uL; Hematocrit 46.2 % (40-54); Hemoglobin 15.4 g/dL (13.0-16.5); Lymphocyte % 39.5 % (19-41); Mean Corp Hgb Conc 33.3 g/dL (32-36); Mean Corpuscular Hgb 31.6 pg (27.0-32.0); Mean Corpuscular Volume 94.7 fL (80-94); Mean Platelet Vol. 9.1 fl (6.2-12.0); Monocyte# 0.99 X10^3/uL; NRBC Flagged by Analyzer 0 % (0-5); Neutrophil # 3.11 X10^3/uL (2.7-7.7); Neutrophil % 43.8 % (47-70); Platelet Count 303 K/mm3 (150-450); RBC Distribution Width CV 12.2 % (11.6-14.6); RBC Distribution Width SD 42.5 fl (35.1-43.9); Red Blood Count 4.88 M/mm3 (4.6-6.2); White Blood Count 7.1 K/mm3 (4.4-11.0)
[2020-12-24 06:50] LABS: BUN 19 mg/dL (7-18); BUN/Creat Ratio 17.4 RATIO (10-20); Calcium,Total 9.3 mg/dL (8.5-10.1); Creatinine, Serum 1.09 mg/dL (0.70-1.30); EST Glomerular Filtration Rate 79 mL/min (>60); Est Glom Filt Rate - Afr Amer 96 mL/min (>60); Estimated Creatinine Clearance 69.57 ml/min; Glucose 101 mg/dL (74-106); Sodium Level 138 mmol/L (136-145)
[2020-12-24 06:51] LABS: Anion Gap 6 (5-15); Chloride 103 mmol/L (98-107); Potassium 3.4 mmol/L (3.5-5.1)
[2020-12-24 06:53] LABS: D-Dimer Quantitative (DVT/PE) <= 0.27 FEU/ug/m (0.27-0.49)
[2020-12-24 06:55] VITALS: BP 138/79; PULSE 69; RESP 14; O2SAT 99
== END 2020-12-24 07:06 | disposition home or self-care (01) ==
LOC: ED 06:51
PROVIDERS: Emergency Provider Emergency Medicine; PCP Nurse Practitioner Family
DX: R07.89 Other chest pain (principal); Z87.891 Personal history of nicotine dependence
CPT/HCPCS: 71045; 80048; 84484; 85025; 85379; 93005; 99285; J7030

== ENCOUNTER 2021-01-07 16:06 | Emergency (ER) | payer SELFPAY ==
[2021-01-07 16:07] VITALS: BP 154/98; PULSE 76; RESP 16; TEMP 36.6; O2SAT 100; BMI 34.7
--- NOTE | 2021-01-07 16:15 | CT_ITS ---
STUDY: CTA HEAD AND NECK WITH CONTRAST REASON FOR EXAM: Male, 40 years old. ACUTE ONSET OF HEAD PRESSURE AND STABBING PAINS IN BACK OF HEAD, NAUSEA, LIGHT HEADED RADIATION DOSAGE (If Supplied By Facility): CTDIvol = ( 25.58 ) mGy, DLP = ( 1619.51 ) mGycm TECHNIQUE: CT angiography was performed with a multi-detector CT scanner. Data acquisition was obtained from the skull base through the vertex following intravenous administration of 100ML ISOVUE 370. MIP images were reconstructed from the axial data set. Post-processing of the angiographic images was performed, with multiplanar reformation and 3D reconstruction. Individualized dose optimization techniques were used for this CT. COMPARISON: No relevant priors. FINDINGS: Normal bilateral petrous carotid arteries. Normal right cavernous carotid artery with a normal supraclinoid bifurcation. Normal left cavernous carotid artery with a normal supraclinoid bifurcation. Normal right A1 segments of the anterior cerebral artery. Normal left A1 segments of the anterior cerebral artery. Normal intact anterior communicating artery (ACOM). Normal bilateral A2 segments of the anterior cerebral arteries. Normal right M1 and M2 segments of the middle cerebral arteries, with a normal M1 bifurcation. Normal left M1 and M2 segments of the middle cerebral arteries, with a normal M1 bifurcation. Normal right posterior communicating artery (PCOM). Normal left posterior communicating artery (PCOM). Normal bilateral vertebral arteries. Normal basilar artery with a normal basilar bifurcation. The visualized bilateral superior cerebellar (SCA) arteries are normal. Normal bilateral P1, P2 and visualized P3 segments of the posterior cerebral arteries. There is no demonstrated aneurysm of the [place]. There is no demonstrated abnormality of the visualized brain. AORTIC ARCH: Normal visualized aortic arch. Normal origins of the brachiocephalic, left common carotid, and left subclavian arteries. RIGHT CAROTID ARTERIES: Normal right common carotid artery (CCA). Normal right common carotid bulb. Normal origin of the right internal carotid (ICA) artery without a hemodynamically significant stenosis. Normal visualized cervical portion of the right internal carotid artery. Normal origin of the right external carotid artery (ECA). LEFT CAROTID ARTERIES: Normal left common carotid artery (CCA). Normal left common carotid bulb. Normal origin of the left internal carotid (ICA) artery without a hemodynamically significant stenosis. Normal visualized cervical portion of the left internal carotid artery. Normal origin of the left external carotid artery (ECA). VERTEBRAL ARTERIES: Normal bilateral vertebral arteries. CT/CTA Head AND Neck W/ Contrast IMPRESSION: Normal CTA Head and neck with contrast. Electronically Signed: Rob Logan MD at 17:05 EST , Service support ,
[2021-01-07 16:34] LABS: Absolute Lymphocyte Count 1.97 X10^3/uL (0.83-4.51); Absolute Neutrophil Count 4.5 X10^3/uL (2.0-7.7); Basophil# 0.05 X10^3/uL; Basophil% 0.7 % (0-1); Eosinophil# 0.05 X10^3/uL; Eosinophils% 0.7 % (0-5); Hematocrit 42.9 % (40-54); Hemoglobin 15.1 g/dL (13.0-16.5); Lymphocyte # 1.97 X10^3/ul (4.0); Lymphocyte % 26.9 % (19-41); Mean Corp Hgb Conc 35.2 g/dL (32-36); Mean Corpuscular Hgb 32.3 pg (27.0-32.0); Mean Corpuscular Volume 91.7 fL (80-94); Mean Platelet Vol. 8.8 fl (6.2-12.0); Monocyte% 9.6 % (0-10); NRBC Flagged by Analyzer 0 % (0-5); Neutrophil # 4.51 X10^3/uL (2.7-7.7); Neutrophil % 61.7 % (47-70); Platelet Count 311 K/mm3 (150-450); RBC Distribution Width CV 12.2 % (11.6-14.6); RBC Distribution Width SD 40.7 fl (35.1-43.9); Red Blood Count 4.68 M/mm3 (4.6-6.2); White Blood Count 7.3 K/mm3 (4.4-11.0)
[2021-01-07 16:51] LABS: Anion Gap 6 (5-15); BUN 12 mg/dL (7-18); BUN/Creat Ratio 11.4 RATIO (10-20); Calcium,Total 8.7 mg/dL (8.5-10.1); Chloride 104 mmol/L (98-107); Creatinine, Serum 1.05 mg/dL (0.70-1.30); EST Glomerular Filtration Rate 83 mL/min (>60); Est Glom Filt Rate - Afr Amer 100 mL/min (>60); Estimated Creatinine Clearance 72.22 ml/min; Glucose 103 mg/dL (74-106); Potassium 3.6 mmol/L (3.5-5.1); Sodium Level 136 mmol/L (136-145)
[2021-01-07] MEDS: 0.9% Normal Saline 1,000 ML 999 ML IV (17:25)
[2021-01-07] MEDS: DiphenhydrAMINE 50 MG/ML Syringe 25 MG IV (17:26)
[2021-01-07] MEDS: Ketorolac 15 MG/ML Vial IV (17:27)
[2021-01-07] MEDS: Metoclopramide 10 MG/2 ML Vial 5 MG IV (17:27)
[2021-01-07 18:17] VITALS: BP 129/67; PULSE 70; RESP 16
--- NOTE | 2021-01-07 18:57 | ED.DCSUM_ITS ---
History of Present Illness Chief Complaint: General Illness Informant: Patient Narrative: 40 year old male presents with concern for headache. States it is occipital that radiates up to his bilateral temporal areas. States it is aching in nature. States it began approximately 4 hours ago. States it is waxed and waned since that time. Denies any head injury. States he has had some lightheadedness. Denies any vision change. Denies any fever, chills, neck pain. Past Medical History - Allergies and Home Meds Allergies/Adverse Reactions: Allergies naproxen Adverse Reaction (Verified 12/16/20 12:50) Nausea Primary Care Physician: Guilherme Garces STORAGE BATTERY INSPECTOR AND TESTER, STORAGE BATTERY INSPECTOR AND TESTER-C [Primary Care Provider] - Prior records reviewed: Yes Past Medical History: None Surgical History: no surgical history Lives: Alone Smoking Status: Former smoker Alcohol: None Drugs: None Review of Systems General: Denies: Chills, Fever, Sweats Eyes: Denies: Visual changes - bilaterally, Diplopia ENT: Denies: Rhinorrhea, Sore throat Cardiovascular: Denies: Chest pain, Palpitations Respiratory: Denies: Dyspnea, Cough, Dyspnea on exertion Gastrointestinal: Denies: Abdominal pain, Nausea, Vomiting, Diarrhea, Melena, Hematochezia Genitourinary: Denies: Dysuria, Hematuria, Frequency Musculoskeletal: Denies: Back pain, Extremity Pain Skin: Denies: Rash, Wounds Neurological: Reports: Headache. Denies: Weakness, Numbness Physical Exam Vital Signs/Narrative: Vital Signs Temp Pulse Resp BP Pulse Ox 01/07/21 18:17 70 16 129/67 H 01/07/21 16:07 97.8 F 76 16 154/98 H 100 Inital Vital Signs reviewed: Yes General: Well nourished, Well developed, No Acute Distress Head: Normocephalic, Atraumatic Eyes: Perrl, EOMI ENT: Moist mucous membranes, No rhinorrhea Neck: Supple, Nontender Cardiovascular: Regular rate, Regular rhythm, No murmurs Respiratory: No distress, CTA bilaterally, Chest nontender Abdomen: Soft, Nontender, Nondistended, Normal bowel sounds Back: Nontender, Normal Inspection Extremities: Nontender, No edema Skin: Normal color, No rash Neurological: Alert, Oriented x3, Cranial nerves II-XII grossly intact, Normal Strength, Normal Sensation Psychological: Normal affect, Normal Mood Diagnostic/Tx/Re-eval Clinical Impression(s) from Imaging Studies Head/Neck CTA 01/07/21 16:15 IMPRESSION: Normal CTA Head and neck with contrast. Electronically Signed: Rob Logan MD at 17:05 EST , Service support , Laboratory Data 01/07/21 01/07/21 16:20 16:20 WBC 7.3 RBC 4.68 Hgb 15.1 Hct 42.9 MCV 91.7 MCH 32.3 H MCHC 35.2 RDW Std Deviation 40.7 RDW Coeff of Lior 12.2 Plt Count 311 MPV 8.8 Immature Gran % (Auto) 0.400 Neut % (Auto) 61.7 Lymph % (Auto) 26.9 [place] % (Auto) 9.6 Eos % (Auto) 0.7 Baso % (Auto) 0.7 Absolute Neuts (auto) 4.5 Absolute Lymphs (auto) 1.97 Nucleated RBC % 0 Sodium 136 Potassium 3.6 Chloride 104 Carbon Dioxide 26.0 Anion Gap 6 BUN 12 Creatinine 1.05 Estim Creat Clear Calc 72.22 Est GFR (MDRD) Af Amer 100 Est GFR (MDRD) Non-Af 83 BUN/Creatinine Ratio 11.4 Glucose 103 Calcium 8.7 - Medical Decision Making Appears well and nontoxic. Vital signs within normal limits. CTA of the head and neck negative. Patient given 1 L of normal saline, Toradol, Reglan, and Benadryl. Patient feeling much improved. Will be advised to have brain rest and continued hydration. Asked to return for new or worsening symptoms. Patient agreeable and discharged home in stable condition. Impression: 1. Acute headache ED Disposition - Plan for ED Patient: Disposition: Home or Assisted Living Instructions: ED Headache, Tension Referrals: Guilherme Garces NP, STORAGE BATTERY INSPECTOR AND TESTER-C [Primary Care Provider] - 2 Days
[2021-01-07 19:05] VITALS: BP 126/87; PULSE 76; RESP 16
== END 2021-01-07 19:06 | disposition home or self-care (01) ==
PROVIDERS: Emergency Provider Emergency Medicine; PCP Nurse Practitioner Family
DX: R51.9 Headache, unspecified (principal); Z87.891 Personal history of nicotine dependence
CPT/HCPCS: 70496; 70498; 80048; 85025; 96361; 96374; 96375; 99284; J7030; Q9967; A4216

== ENCOUNTER 2021-02-16 06:22 | Emergency (ER) | payer SELFPAY ==
[2021-02-16 06:23] VITALS: BP 150/83; PULSE 75; RESP 16; TEMP 36.6; O2SAT 100; BMI 34.7
--- NOTE | 2021-02-16 06:43 | ED.DCSUM_ITS ---
History of Present Illness Chief Complaint: Abd Pain Informant: Patient - Abdominal Pain/Flank Pain Onset: Days - 6 Context: Gradual Onset - After meals, within 10 or 20 minutes afterwards Timing: Intermittent, Lasts, Waxes and wanes Location: RUQ - Occasionally radiating to the right mid back Current Severity: Moderate Maximum Severity: Severe Worsened by: Food Relieved by: Nothing. Not Relieved By: Antacids - Tried multiple types - Nausea/Vomiting/Emesis GI Symptom: Nausea. Negative for: Vomiting - Diarrhea/Melena/Hematochezia GI Symptom: Negative for: Diarrhea, Melena, Hematochezia Narrative: Healthy 40-year-old male presenting with recurrent abdominal pain for almost the last week. He states he avoided coming to the ER earlier than now because every time I come there for abdominal issues, you guys can never find anything. She states he has had abdominal pains in the past, this is somewhat different and has been going on and off for the last several months. He had another gallbladder ultrasound since his discomfort is in the right upper quadrant and worse by food, it was normal and he was seen by surgery Dr. Gonzalez a couple months ago, he recommended a HIDA scan but the patient states he was frustrated, did not have a lot of money for medical bills and did not get the test. Additionally now, he has had a hard time having bowel movements; he feels like he needs to go, only a small amount of very hard stool comes out, he feels like he has more to produce but is unable. He denies any blood or melena. When asked how long the patient has been having abdominal pains and issues, he states most of my adult life. Most of the time when he has discomfort he comes to the emergency department for it according to him. Past Medical History - Allergies and Home Meds Allergies/Adverse Reactions: Allergies naproxen Adverse Reaction (Verified 02/16/21 06:25) Nausea Primary Care Physician: Guilherme Garces NP, MARKETING ACCOUNT EXECUTIVE-C [Primary Care Provider] - Surgical History: no surgical history Smoking Status: Former smoker Alcohol: None Review of Systems General: Denies: Chills, Fever, Sweats Eyes: Denies: Visual changes - bilaterally, Diplopia ENT: Denies: Rhinorrhea, Sore throat Cardiovascular: Denies: Chest pain, Palpitations Respiratory: Denies: Dyspnea, Cough, Dyspnea on exertion Gastrointestinal: Reports: Abdominal pain, Nausea, Constipation. Denies: Vomiting, Diarrhea, Melena, Hematochezia Genitourinary: Denies: Dysuria, Hematuria, Frequency Musculoskeletal: Reports: Back pain. Denies: Swelling, Extremity Pain Skin: Denies: Rash, Wounds Neurological: Denies: Headache, Weakness, Numbness Physical Exam Vital Signs/Narrative: Vital Signs Temp Pulse Resp BP Pulse Ox 02/16/21 06:23 97.8 F 75 16 150/83 H 100 Inital Vital Signs reviewed: Yes General: Well nourished, Well developed, No Acute Distress Head: Normocephalic, Atraumatic Eyes: Perrl, EOMI ENT: Moist mucous membranes, No rhinorrhea Neck: Supple, Nontender Cardiovascular: Regular rate, Regular rhythm, No murmurs Respiratory: No distress, CTA bilaterally, Chest nontender Abdomen: Soft, Nondistended, Normal bowel sounds, Tender - RUQ; less in epigastrium; otherwise, NT. Negative for: Guarding, Rebound tenderness, Da Silva's sign Back: Nontender, Normal Inspection. Negative for: CVA tenderness Extremities: Nontender, No edema Skin: Normal color, No rash Neurological: Alert, Oriented x3, Cranial nerves II-XII grossly intact, Normal Strength, Normal Sensation, Normal Gait Psychological: Normal affect, Normal Mood Diagnostic/Tx/Re-eval Laboratory Results 02/16/21 02/16/21 02/16/21 06:35 06:35 07:00 WBC 7.6 RBC 4.53 L Hgb 14.5 Hct 42.7 MCV 94.3 H MCH 32.0 MCHC 34.0 RDW Std Deviation 42.6 RDW Coeff of Lior 12.3 Plt Count 288 MPV 9.2 Immature Gran % (Auto) 0.300 Neut % (Auto) 50.7 Lymph % (Auto) 34.3 [place] % (Auto) 12.3 H Eos % (Auto) 1.7 Baso % (Auto) 0.7 Absolute Neuts (auto) 3.8 Absolute Lymphs (auto) 2.59 Nucleated RBC % 0 Sodium 136 Potassium 3.9 Chloride 106 Carbon Dioxide 27.0 Anion Gap 3 L BUN 13 Creatinine 1.15 Estim Creat Clear Calc 65.94 Est GFR (MDRD) Af Amer 90 Est GFR (MDRD) Non-Af 75 BUN/Creatinine Ratio 11.3 Glucose 99 Calcium 9.2 Total Bilirubin 0.70 AST 26 ALT 32 Alkaline Phosphatase 87 Total Protein 7.8 Albumin 4.0 Globulin 3.8 Albumin/Globulin Ratio 1.1 Lipase 145 Urine Color Yellow Urine Clarity Clear Urine pH 6.0 Ur Specific [place] 1.015 Urine Protein Negative Urine Glucose (UA) Normal Urine Ketones Negative Urine Occult Blood Negative Urine Nitrite Negative Urine Bilirubin Negative Urine Urobilinogen Normal Ur Leukocyte Esterase Negative - Medical Decision Making I did a bedside gallbladder ultrasound, his ultrasound lies fairly laterally, it is tender to press on but looks normal grossly without stones. Given that he has no leukocytosis or elevation of liver enzymes, he certainly does not need an emergent HIDA scan but getting 1 as an outpatient would at least rule out gallbladder as etiology of his pain, in addition to the possibility that this is colonic spasm due to constipation. We discussed that. We also discussed the possibility that this is intestinal/GI in etiology. He was given Toradol and Bentyl here, it helped a little but he was still having some discomfort so I tried a GI cocktail prior to discharge, as well as magnesium citrate for which he requested a work note, and prescribed dicyclomine to use as needed until he can follow-up. He is comfortable with that plan. ED Disposition - Plan for ED Patient: Disposition: Home or Assisted Living Diagnosis: Upper abdominal pain, Constipation Instructions: ED Abdominal Pain Unkn Cause Fem, ED Diet, Mobile (Adult) Prescriptions: Dicyclomine HCl [Bentyl] 2 tablet PO Q4H PRN #20 capsule PRN Reason: abdominal pain Transmission Status: Pending to [id number] Referrals: Guilherme Garces NP, MARKETING ACCOUNT EXECUTIVE-C [Primary Care Provider] - 5-7 Days Additional Instructions: Drink plenty of fluids today after taking the magnesium citrate. If you do not have a bowel movement within 24 hours, repeat with the second half of the bottle. Stick with a bland diet for the next 48 hours to see if that helps, if so try to continue it for now.
[2021-02-16 06:51] LABS: Absolute Lymphocyte Count 2.59 X10^3/uL (0.83-4.51); Absolute Neutrophil Count 3.8 X10^3/uL (2.0-7.7); Basophil# 0.05 X10^3/uL; Basophil% 0.7 % (0-1); Eosinophil# 0.13 X10^3/uL; Eosinophils% 1.7 % (0-5); Hematocrit 42.7 % (40-54); Hemoglobin 14.5 g/dL (13.0-16.5); Lymphocyte # 2.59 X10^3/ul (4.0); Lymphocyte % 34.3 % (19-41); Mean Corpuscular Volume 94.3 fL (80-94); Mean Platelet Vol. 9.2 fl (6.2-12.0); Monocyte# 0.93 X10^3/uL; Monocyte% 12.3 % (0-10); NRBC Flagged by Analyzer 0 % (0-5); Neutrophil # 3.83 X10^3/uL (2.7-7.7); Neutrophil % 50.7 % (47-70); Platelet Count 288 K/mm3 (150-450); RBC Distribution Width CV 12.3 % (11.6-14.6); RBC Distribution Width SD 42.6 fl (35.1-43.9); Red Blood Count 4.53 M/mm3 (4.6-6.2); White Blood Count 7.6 K/mm3 (4.4-11.0)
[2021-02-16] MEDS: Dicyclomine 20 MG/2 ML Vial IM (06:52)
[2021-02-16] MEDS: Ondansetron 4 MG/2 ML Vial IV (06:52)
[2021-02-16] MEDS: Ketorolac 30 MG/ML Syringe IV (06:52)
[2021-02-16 07:04] LABS: Bacteria 0 SEEN /hpf (None Seen); Mucous, Urine 0 SEEN /hpf (<or=2+); Red Blood Cells-Urine 0 SEEN /hpf (0-5); Squamous Epithelial Cells - UA 0 SEEN /hpf (0-5); White Blood Cells 0 SEEN /hpf (0-5)
[2021-02-16 07:05] LABS: ALB/GLOB Ratio 1.1 RATIO (0.9-2.4); AST(SGOT) 26 U/L (15-37); Alanine Aminotransfer ALT/SGPT 32 U/L (16-61); Alkaline Phosphatase 87 U/L (45-117); Anion Gap 3 (5-15); BUN 13 mg/dL (7-18); BUN/Creat Ratio 11.3 RATIO (10-20); Calcium,Total 9.2 mg/dL (8.5-10.1); Chloride 106 mmol/L (98-107); Creatinine, Serum 1.15 mg/dL (0.70-1.30); EST Glomerular Filtration Rate 75 mL/min (>60); Est Glom Filt Rate - Afr Amer 90 mL/min (>60); Estimated Creatinine Clearance 65.94 ml/min; Globulin 3.8 g/dL (2.2-4.2); Glucose 99 mg/dL (74-106); Lipase 145 U/L (73-393); Potassium 3.9 mmol/L (3.5-5.1); Protein, Total 7.8 g/dL (6.4-8.2); Sodium Level 136 mmol/L (136-145)
[2021-02-16 07:05] LABS: Color, Urine Yellow (Yellow); Glucose, Dipstick Normal (Normal); Ketone-Dipstick Negative (Negative); Leukocyte Esterase-Dipstick Negative /ul (Negative); Nitrite-Dipstick Negative (Negative); Occult Blood-Urine Negative /ul (Negative); Protein-Dipstick Negative (Negative); Specific Gravity, Urine 1.015 (1.002-1.030); Urine Bilirubin Dipstick Negative (Negative); Urine Clarity Clear (Clear); Urine Urobilinogen Normal (Normal)
[2021-02-16] MEDS: Magnesium Citrate 300 ML 150 ML PO (07:26)
[2021-02-16] MEDS: Mag Hydrox/Al Hydrox/Simeth 30 ML UDC PO (07:27)
--- NOTE | 2021-02-16 08:12 | ED.RN ---
pt had not filled out the registration assistance with bill pay and stated, i was going to do that at home and bring it back dc instructions given.
== END 2021-02-16 08:23 | disposition home or self-care (01) ==
PROVIDERS: Emergency Provider Emergency Medicine; PCP Nurse Practitioner Family
DX: K59.00 Constipation, unspecified (principal); R10.10 Upper abdominal pain, unspecified; Z87.891 Personal history of nicotine dependence
CPT/HCPCS: 80053; 81001; 83690; 85025; 96372; 96374; 96375; 99284; A4216; J2405

== ENCOUNTER 2021-02-19 16:57 | Emergency (ER) | payer SELFPAY ==
[2021-02-19 16:58] VITALS: BP 163/87; PULSE 85; RESP 16; TEMP 36.1; O2SAT 100; BMI 34.0
--- NOTE | 2021-02-19 17:16 | CT_ITS ---
STUDY: CT ABDOMEN AND PELVIS WITH CONTRAST REASON FOR EXAM: Male, 40 years old. Flank pain RADIATION DOSAGE (If Supplied By Facility): CTDIvol = ( 10.57 ) mGy, DLP = ( 590.02 ) mGycm TECHNIQUE: Transaxial images were obtained from the dome of the diaphragm to the symphysis pubis without oral contrast. IV 100ML ISOVUE 300 was administered. Sagittal and coronal images were reconstructed. Individualized dose optimization techniques were used for this CT. COMPARISON: Prior abdomen and pelvic CT exam of 12/16/2020, 06/04/2020 and 12/06/2018. FINDINGS: The visualized lung bases are unremarkable. The visualized portions of the heart are within normal limits. Normal liver. Normal gallbladder and extrahepatic biliary system. Normal spleen. Normal pancreas. Normal bilateral adrenal glands. Normal right kidney. Normal left kidney. Normal visualized stomach. Normal small intestine. Normal colon. The appendix is visualized and appears normal. He has a slightly berto mesentery and multiple irregular shoddy mesenteric lymph nodes. This is a stable finding that has not changed substantially since 12/06/2018 Normal abdominal aorta. Normal inferior vena cava. Normal retroperitoneum. Normal urinary bladder. Normal abdominal wall. No acute bone findings or changes. CT/Abdomen/Pelvis W IV Cont ONLY IMPRESSION: No acute abdominal or pelvic findings or changes. Normal size of the kidneys bilaterally without hydronephrosis or stones. Unremarkable urinary bladder. No acute bowel related findings. Negative for perforation, obstruction or inflammatory bowel changes. A normal appendix is identified. He has a slightly berto mesentery and irregular shoddy mesenteric lymph nodes that have not changed from 12/06/2018 likely the sequelae of prior mesenteric adenitis. Unremarkable liver, spleen and pancreas with a nondistended gallbladder. Electronically Signed: Jacquelyn Quintero MD at 19:16 EDT , Service support ,
[2021-02-19] MEDS: 0.9% Normal Saline 1,000 ML 1000 ML IV (17:39)
[2021-02-19 17:40] LABS: Absolute Lymphocyte Count 2.14 X10^3/uL (0.83-4.51); Absolute Neutrophil Count 4.6 X10^3/uL (2.0-7.7); Basophil# 0.06 X10^3/uL; Basophil% 0.8 % (0-1); Eosinophil# 0.08 X10^3/uL; Hematocrit 43.2 % (40-54); Hemoglobin 14.9 g/dL (13.0-16.5); Lymphocyte # 2.14 X10^3/ul (4.0); Lymphocyte % 28.1 % (19-41); Mean Corp Hgb Conc 34.5 g/dL (32-36); Mean Corpuscular Hgb 31.6 pg (27.0-32.0); Mean Corpuscular Volume 91.5 fL (80-94); Mean Platelet Vol. 8.8 fl (6.2-12.0); Monocyte# 0.77 X10^3/uL; Monocyte% 10.1 % (0-10); NRBC Flagged by Analyzer 0 % (0-5); Neutrophil # 4.56 X10^3/uL (2.7-7.7); Neutrophil % 59.9 % (47-70); Platelet Count 285 K/mm3 (150-450); RBC Distribution Width SD 40.7 fl (35.1-43.9); Red Blood Count 4.72 M/mm3 (4.6-6.2); White Blood Count 7.6 K/mm3 (4.4-11.0)
[2021-02-19] MEDS: Ondansetron 4 MG/2 ML Vial IV (17:45)
[2021-02-19] MEDS: Ketorolac 15 MG/ML Vial IV (17:45)
[2021-02-19 17:59] LABS: ALB/GLOB Ratio 1.1 RATIO (0.9-2.4); AST(SGOT) 20 U/L (15-37); Alanine Aminotransfer ALT/SGPT 30 U/L (16-61); Albumin, Serum 4.1 g/dL (3.2-5.0); Alkaline Phosphatase 82 U/L (45-117); Anion Gap 8 (5-15); BUN 13 mg/dL (7-18); BUN/Creat Ratio 12.3 RATIO (10-20); Calcium,Total 8.8 mg/dL (8.5-10.1); Chloride 105 mmol/L (98-107); Creatinine, Serum 1.06 mg/dL (0.70-1.30); EST Glomerular Filtration Rate 82 mL/min (>60); Est Glom Filt Rate - Afr Amer 99 mL/min (>60); Estimated Creatinine Clearance 71.54 ml/min; Globulin 3.7 g/dL (2.2-4.2); Glucose 92 mg/dL (74-106); Lipase 118 U/L (73-393); Potassium 3.6 mmol/L (3.5-5.1); Protein, Total 7.8 g/dL (6.4-8.2); Sodium Level 138 mmol/L (136-145)
--- NOTE | 2021-02-19 18:21 | ED.VISSUMM ---
- ER Visit Summary Date of Service: 02/19/21 Chief Complaint: Flank pain History of Present Illness: The patient is a [address] Garces. He reports that he has had bilateral flank pain all my adult life. Has had multiple evaluations and I have no answers. States that the pain has worsened over the past 3 months. Is an intermittent pain the last 5 to 10 minutes at a time. It then resolves for 5 to 10 minutes and then returns. Describes it as stabbing. Zeta 10 at worst and 5-10 currently. Is worsened by eating. Does not seem related to fatty or spicy foods. Is relieved by nothing. Patient reports that today he feels cold and is unable to warm up and that is why he is coming in. He does complain of dysuria on and off. He denies fever. Patient has never seen a electrical design engineer. Is never had a colonoscopy or endoscopy. Does report he had an ultrasound of his gallbladder. Physical Examination: Vitals: Stable. Afebrile. General: Well-nourished and well-developed. Head: Normocephalic atraumatic. Neck: Supple, no lymphadenopathy. No JVD. Nontender. Cardiovascular: Regular rate and rhythm. No murmurs. Respiratory: No respiratory distress. Clear to auscultation bilaterally. Abdominal: Soft, mild epigastric tenderness to palpation, nondistended, normal bowel sounds. No guarding, rebound, or peritoneal signs. Back: Nontender. No CVA tenderness. Extremities: Nontender, no edema. Skin: Normal color, no rash. Neurologic: Alert and oriented ?3. Cranial nerves II through XII are intact. Normal strength and sensation. Psych: Normal affect. Test Results: CBC is normal. Chem-7 is normal. LFTs show a total bili of 1.3. His total bili was 1.3?1.6 and 2020. Lipase is 118. UA was obtained 3 days ago and was negative. This was not repeated. Clinical Impression(s) from Imaging Studies Abdomen/Pelvis CT 02/19/21 17:16 IMPRESSION: No acute abdominal or pelvic findings or changes. Normal size of the kidneys bilaterally without hydronephrosis or stones. Unremarkable urinary bladder. No acute bowel related findings. Negative for perforation, obstruction or inflammatory bowel changes. A normal appendix is identified. He has a slightly berto mesentery and irregular shoddy mesenteric lymph nodes that have not changed from 12/06/2018 likely the sequelae of prior mesenteric adenitis. Unremarkable liver, spleen and pancreas with a nondistended gallbladder. Electronically Signed: Jacquelyn Quintero MD at 19:16 EDT , Service support , Emergency Department Course and Treatment: Patient was given Toradol and Zofran IV. He is resting more comfortably. Treatment Plan: Patient will be discharged with Zofran. Instructed to follow-up with his primary care physician for further evaluation. He does understand that he may need referral to a electrical design engineer. Return to the emergency department for any worsening symptoms. Disposition: To home in improved and stable condition. Impression: 1. Flank pain, uncertain cause. This note was generated with Skift dictation software. It may contain incorrect words, spelling, and punctuation that were not noted in review of the chart prior to signing ED Disposition - Plan for ED Patient: Instructions: ED Flank Pain, Uncertain Cause Prescriptions: Ondansetron [Zofran Odt] 4 mg PO Q8H PRN PRN #10 tablet PRN Reason: Nausea Referrals: Guilherme Garces NP, VEST TAILOR-C [Primary Care Provider] - 3-5 Days
[2021-02-19 20:01] VITALS: BP 141/86; PULSE 85; RESP 14; O2SAT 98
== END 2021-02-19 20:02 | disposition home or self-care (01) ==
LOC: ED 17:21
PROVIDERS: Emergency Provider Emergency Medicine; PCP Nurse Practitioner Family
DX: R10.9 Unspecified abdominal pain (principal); G89.29 Other chronic pain; Z87.891 Personal history of nicotine dependence
CPT/HCPCS: 74177; 80053; 83690; 85025; 96361; 96374; 96375; 99284; J7030; Q9967; A4216; J2405

== ENCOUNTER 2021-03-03 06:48 | Emergency (ER) | payer SELFPAY ==
[2021-03-03 06:51] VITALS: BP 140/77; PULSE 76; RESP 18; TEMP 36.3; O2SAT 100; BMI 33.7
--- NOTE | 2021-03-03 07:09 | EKG12_ITS ---
Test Reason : CP Blood Pressure : / mmHG Vent. Rate : 076 BPM Atrial Rate : 076 BPM P-R Int : 134 ms QRS Dur : 086 ms QT Int : 388 ms P-R-T Axes : 027 031 034 degrees QTc Int : 436 ms Normal sinus rhythm Normal ECG Confirmed by MAXIM PEÑALOZA, JORDI ([id number]), editor continuity and script JOHN MCGINNIS ([id number]) on 03/08/2021 10:44:26 AM Referred By: RACHEL Confirmed By:JORDI PAN MD
--- NOTE | 2021-03-03 07:12 | ED.VIS.CHEST ---
History of Present Illness Chief Complaint: Chest Pain Informant: Patient Onset: Yesterday - around 24 hrs Activity at onset: Light Activity, Rest, Sleep, - - awoke w/ sx, intermittent Timing: Intermittent, Lasts - 20 min or so Quality: Sharp, Stabbing Location: - - upper chest both sides Current Severity: Gone Maximum Severity: Moderate Worsened By: Nothing - except lying supine. Not Worsened By: Breathing Relieved By: - - sitting up and walking around Associated Symptoms: Nausea, Lightheadedness, Palpitations. 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 He would feel sharp stabbing discomfort in both sides of his upper chest along with associated burning down his arm and severe squeezing sensation in the back of his neck. These would frequently occur with lightheadedness. No dyspnea or syncope. No pleuritic symptoms. He states when he felt lightheaded he would just rest for a minute until it went away and then go about his job without any difficulty. Last night, he had a difficult time getting to sleep because lying down seem to make the symptoms much worse, more constant, waxing and waning all night. If he sat up and got out of bed and walked around the symptoms would akash. Occasionally while lying supine he would have some palpitations and it felt like fluttering. He denies any exposure to Covid that he knows of, he has not had Covid, nor has he been vaccinated. He is 40 years old healthy does not smoke, states he has some chronic right upper quadrant pain he has had most of his adult life, he came in for similar symptoms 1 or 2 weeks ago and saw me then, he reminds me now that he had a normal ultrasound of his gallbladder as an outpatient and was supposed to have a HIDA scan but never followed up for it. He denies any of that abdominal pain during these episodes but he did have some nausea. He denies any fevers or chills, loss of taste or smell, leg pain or swelling. He has had no prior DVT or PE. No recent travel out of the area. States he basically has been very busy at work. At the time of the exam and the EKG, the patient is asymptomatic. Past Medical History - Allergies and Home Meds Allergies/Adverse Reactions: Allergies naproxen Adverse Reaction (Verified 03/03/21 06:54) Nausea Primary Care Physician: Guilherme Garces [facility], [facility] [Primary Care Provider] - Past Medical History: None Surgical History: no surgical history Smoking Status: Former smoker Review of Systems General: Denies: Chills, Fever, Sweats Eyes: Denies: Visual changes - bilaterally, Diplopia ENT: Denies: Bilateral ear pain, Rhinorrhea, Sore throat Cardiovascular: Reports: Chest pain, Palpitations Respiratory: Denies: Dyspnea, Cough, Dyspnea on exertion Gastrointestinal: Reports: Nausea. Denies: Abdominal pain, Vomiting, Diarrhea, Melena, Hematochezia Genitourinary: Denies: Dysuria, Hematuria, Frequency Musculoskeletal: Reports: Neck pain, Extremity Pain - LUE only. Denies: Myalgias, Back pain, Swelling Skin: Denies: Rash, Wounds Neurological: Denies: Headache, Weakness, Numbness Physical Exam Vital Signs/Narrative: Vital Signs Temp Pulse Resp BP Pulse Ox 03/03/21 06:51 97.3 F L 76 18 140/77 H 100 Inital Vital Signs reviewed: Yes General: Well nourished, Well developed, No Acute Distress Head: Normocephalic, Atraumatic Eyes: Perrl, EOMI ENT: Moist mucous membranes, No rhinorrhea Neck: Supple, Nontender, No lymphadenopathy, No JVD Cardiovascular: Regular rate, Regular rhythm, No murmurs. Negative for: Tachycardia Respiratory: No distress, CTA bilaterally, Chest nontender Abdomen: Soft, Nontender, Nondistended, Normal bowel sounds Back: Nontender, Normal Inspection Extremities: Nontender, No edema. Negative for: Calf Tenderness Skin: Normal color, No rash, No Trauma Neurological: Alert, Oriented x3, Cranial nerves II-XII grossly intact, Normal Strength, Normal Sensation Psychological: Normal affect, Normal Mood Diagnostic/Tx/Re-eval Chest X-Ray - ED: 1 View, Read by ED Physician, Normal, Heart, Lungs, Mediastinum, No Acute Disease, No Infiltrates Laboratory Tests 03/03/21 03/03/21 Range/Units 06:55 06:55 WBC 6.8 (4.4-11.0) K/mm3 RBC 4.79 (4.6-6.2) M/mm3 Hgb 15.5 (13.0-16.5) g/dL Hct 45.2 (40-54) % MCV 94.4 H (80-94) fL MCH 32.4 H (27.0-32.0) pg MCHC 34.3 (32-36) g/dL RDW Std Deviation 42.6 (35.1-43.9) fl RDW Coeff of Lior 12.4 (11.6-14.6) % Plt Count 320 (150-450) K/mm3 MPV 9.0 (6.2-12.0) fl Immature Gran % (Auto) 0.300 (0.0-0.9) % Neut % (Auto) 52.5 (47-70) % Lymph % (Auto) 32.6 (19-41) % [place] % (Auto) 12.4 H (0-10) % Eos % (Auto) 1.5 (0-5) % Baso % (Auto) 0.7 (0-1) % Absolute Neuts (auto) 3.5 (2.0-7.7) X10^3/uL Absolute Lymphs (auto) 2.20 (0.83-4.51) X10^3/uL Nucleated RBC % 0 (0-5) % Sodium 137 (136-145) mmol/L Potassium 3.2 L (3.5-5.1) mmol/L Chloride 103 (98-107) mmol/L Carbon Dioxide 30.0 (21.0-32.0) mmol/L Anion Gap 4 L (5-15) BUN 11 (7-18) mg/dL Creatinine 1.01 (0.70-1.30) mg/dL Estim Creat Clear Calc 75.08 ml/min Est GFR (MDRD) Af Amer 105 (>60) mL/min Est GFR (MDRD) Non-Af 87 (>60) mL/min BUN/Creatinine Ratio 10.9 (10-20) RATIO Glucose 110 H (74-106) mg/dL Calcium 9.0 (8.5-10.1) mg/dL Troponin I < 0.015 (<0.045) ng/mL - Rhythm Strip Rhythm Strip: Sinus Rhythm Rate: 76 Ectopy: None - EKG Initial EKG Interpretation: Sinus Rhythm, No Acute Injury Pattern - Normal EKG, rate 76. Normal axis and intervals. Prior: Unchanged Treatment: - - dicyclomine Repeat Eval: Pain Free DONNA Risk: No Positive DONNA Elements Score: 0 - Medical Decision Making I lie the patient supine for around half an hour and he had no recurrence of his symptoms, unlike when he was at home earlier. Patient states he feels fine now. He had no telemetry or cardiac events. His EKG and troponin are negative, since he has been having discomfort all night, and intermittently all day yesterday, I do not think he needs a second in order to prove he is not having acute coronary syndrome. Given his history of chronically recurring GI/abdominal issues that have yet to been diagnosed, I suspect this is probably related and esophageal in nature. Given a dicyclomine as well as a prescription for as needed use, and advised to follow-up. He is comfortable with that plan. ED Disposition - Plan for ED Patient: Disposition: Home or Assisted Living Diagnosis: Atypical chest pain Instructions: ED Chest Pain, Noncardiac Prescriptions: Dicyclomine HCl [Bentyl] 20 mg PO Q4H PRN #20 capsule PRN Reason: abdominal cramping Prescription Printed Referrals: Guilherme Garces NP, [facility] [Primary Care Provider] - 5-7 Days Additional Instructions: The prescription may be used as needed for abdominal pain or the chest discomfort you are experiencing.
[2021-03-03 07:13] VITALS: O2SAT 98
[2021-03-03 07:16] LABS: Absolute Neutrophil Count 3.5 X10^3/uL (2.0-7.7); Basophil# 0.05 X10^3/uL; Basophil% 0.7 % (0-1); Eosinophils% 1.5 % (0-5); Hematocrit 45.2 % (40-54); Hemoglobin 15.5 g/dL (13.0-16.5); Lymphocyte % 32.6 % (19-41); Mean Corp Hgb Conc 34.3 g/dL (32-36); Mean Corpuscular Hgb 32.4 pg (27.0-32.0); Mean Corpuscular Volume 94.4 fL (80-94); Monocyte# 0.84 X10^3/uL; Monocyte% 12.4 % (0-10); NRBC Flagged by Analyzer 0 % (0-5); Neutrophil # 3.54 X10^3/uL (2.7-7.7); Neutrophil % 52.5 % (47-70); Platelet Count 320 K/mm3 (150-450); RBC Distribution Width CV 12.4 % (11.6-14.6); RBC Distribution Width SD 42.6 fl (35.1-43.9); Red Blood Count 4.79 M/mm3 (4.6-6.2); White Blood Count 6.8 K/mm3 (4.4-11.0)
[2021-03-03 07:22] VITALS: BP 142/76; PULSE 79; RESP 19; O2SAT 99
--- NOTE | 2021-03-03 07:25 | RAD_ITS ---
STUDY: X-RAY CHEST REASON FOR EXAM: Male, 40 years old. Chest pain TECHNIQUE: Frontal view of the chest COMPARISON: 12/24/20 FINDINGS: The lungs are clear. There are no pleural effusions. There is no pneumothorax. The heart is normal in size. The visualized osseous structures are within normal limits. RAD/Chest 1 View (Portable) IMPRESSION: No acute thoracic pathology. Electronically Signed: Chad Berman MD at 7:46 EDT Tel , Service support ,
[2021-03-03 07:30] LABS: Anion Gap 4 (5-15); BUN 11 mg/dL (7-18); BUN/Creat Ratio 10.9 RATIO (10-20); Chloride 103 mmol/L (98-107); Creatinine, Serum 1.01 mg/dL (0.70-1.30); EST Glomerular Filtration Rate 87 mL/min (>60); Est Glom Filt Rate - Afr Amer 105 mL/min (>60); Estimated Creatinine Clearance 75.08 ml/min; Glucose 110 mg/dL (74-106); Potassium 3.2 mmol/L (3.5-5.1); Sodium Level 137 mmol/L (136-145)
[2021-03-03 07:59] VITALS: BP 138/74; PULSE 73; RESP 19; O2SAT 99
[2021-03-03] MEDS: Dicyclomine 10 MG Capsule 20 MG PO (08:04)
== END 2021-03-03 08:05 | disposition home or self-care (01) ==
PROVIDERS: Emergency Provider Emergency Medicine; PCP Nurse Practitioner Family
DX: R07.89 Other chest pain (principal); Z87.891 Personal history of nicotine dependence
CPT/HCPCS: 71045; 80048; 84484; 85025; 93005; 99284; A4216

== ENCOUNTER 2021-03-25 04:19 | Emergency (ER) | payer SELFPAY ==
[2021-03-25 04:20] VITALS: BP 150/80; PULSE 67; RESP 16; TEMP 36.1; O2SAT 100; BMI 34.2
[2021-03-25] MEDS: Acetaminophen 325 MG Tablet 650 MG PO (04:43)
--- NOTE | 2021-03-25 04:48 | EDS_ITS ---
HPI History of Present Illness Chief Complaint: Abd Pain Informant: patient Narrative Narrative: Patient is a 40-year-old male with a past medical history of hypertension who presents to the emergency department for bilateral side pain. He has had this many times before in the past. This episode flared up over the past few days. He describes his symptoms as moderate. He states that it became a burning sensation overnight. He was concerned that he was urinating more frequently. He denies any dysuria or hematuria. He does not know aggravating or relieving factors to his discomfort. He has not tried taking anything for it. Patient has been seen in the emergency department previously for the same complaint. He has not followed up with gastroenterology for this issue. He denies any nausea/vomiting. No change in bowel movements. He denies any chest pain or shortness of breath. No back pain. No previous abdominal surgeries. [facility] Medical History (Updated 03/25/21 @ 06:[address] Catalino Khan DO) HTN (hypertension) Home Medications lisinopril 10 mg PO DAILY 03/25/21 [History Last Taken Unknown] Allergy/AdvReac Type Severity Reaction Status Date / Time naproxen AdvReac Nausea Verified 03/25/21 04:28 Social History Smoking Status: Former smoker ROS ROS ED Constitutional Constitutional ED: Denies chills or fever(s) Eyes Eyes: Denies change in vision ENT ENT ED: Denies epistaxis or rhinorrhea Cardiovascular Cardiovascular: Denies chest pain or palpitations Respiratory/Chest Respiratory/Chest: Denies cough, dyspnea or dyspnea on exertion Gastrointestinal Gastrointestinal: Reports abdominal pain; Denies diarrhea, nausea or vomiting Genitourinary Genitourinary ED: Reports urinary frequency; Denies dysuria or hematuria Musculoskeletal Musculoskeletal: Denies back pain or neck pain Integumentary Denies rash Neurologic Neurologic: Denies dizziness, headache(s) or weakness EXAM Physical Exam Const Vital Signs: 03/25/21 04:20 Temperature 97 F L Temperature Source Temporal Pulse Rate 67 Respiratory Rate 16 Blood Pressure 150/80 H Blood Pressure Mean 103 Pulse Ox 100 Oxygen Delivery Method Room Air Positive well nourished and well developed General Appearance ED: well developed and NAD HEENT Reports normocephalic, head/scalp atraumatic and moist mucous membranes Eyes PERRL and EOMs intact bilaterally Neck no lymphadenopathy and supple General: Negative for tenderness Chest Wall inspection of chest normal Resp normal respiratory effort and clear to auscultation bilaterally Auscultation: Negative for rales, rhonchi or wheezes Cardio regular rate, regular rhythm and no murmurs GI normal to inspection, nondistended, normoactive bowel sounds and non-tender Palpation: soft; Negative for guarding or rebound tenderness present Back/Spine no CVA tenderness Extremity normal to inspection General Extremety ED: Negative for edema or tenderness General Extremity: Negative for edema Neuro oriented x3, CN's II-XII intact bilaterally and no sensory deficits noted Sensorium / Orientation: alert Motor Exam: strength 5/5 throughout Psych mental status grossly normal Skin no rashes or lesions noted MDM MDM MDM Narrative Medical decision making narrative: Patient presents to the ED for acute on chronic exacerbation of bilateral flank/side pain. Scribes as a burning sensation. He has a benign physical exam without reproduction of any of his pain. He is in no acute distress. He Is resting comfortably. Will check basic lab work to evaluate kidney function status as well as urinalysis. Patient given a dose of Tylenol for symptomatic treatment. Patient's lab work-up did not reveal a significant acute abnormality. He does not have a high white blood cell count. Liver enzymes within normal limits. Lipase within normal limits. Urine does not show any signs of infection. Since this is acute on chronic issue. He did have a previous CT for the same complaint. He did not reveal any acute intra-abdominal pathology. I do not feel this needs repeated today. He is to follow-up with his PCP. He can return to the emergency department anytime if he develops worsening symptoms. He understands and is agreeable this plan. Discharged home in stable condition. All questions answered. Lab Data Labs: Laboratory Results - last 24 hr 03/25/21 03/25/21 03/25/21 04:45 04:45 04:45 WBC 8.9 RBC 4.54 L Hgb 14.4 Hct 43.3 MCV 95.4 H MCH 31.7 MCHC 33.3 RDW Std Deviation 43.1 RDW Coeff of Lior 12.5 Plt Count 282 MPV 8.9 Immature Gran % (Auto) 0.200 Neut % (Auto) 50.8 Lymph % (Auto) 34.9 [place] % (Auto) 11.6 H Eos % (Auto) 1.9 Baso % (Auto) 0.6 Absolute Neuts (auto) 4.5 Absolute Lymphs (auto) 3.11 Nucleated RBC % 0 Sodium 138 Potassium 3.9 Chloride 104 Carbon Dioxide 30.0 Anion Gap 4 L BUN 13 Creatinine 0.99 Estim Creat Clear Calc 76.60 Est GFR (MDRD) Af Amer 107 Est GFR (MDRD) Non-Af 88 BUN/Creatinine Ratio 13.1 Glucose 103 Calcium 8.8 Total Bilirubin 0.80 AST 19 ALT 38 Alkaline Phosphatase 84 Total Protein 7.4 Albumin 3.8 Globulin 3.6 Albumin/Globulin Ratio 1.1 Lipase 129 Urine Color Yellow Urine Clarity Clear Urine pH 6.5 Ur Specific [place] 1.010 Urine Protein Negative Urine Glucose (UA) Normal Urine Ketones Negative Urine Occult Blood Negative Urine Nitrite Negative Urine Bilirubin Negative Urine Urobilinogen Normal Ur Leukocyte Esterase Negative Urine RBC 0 SEEN Urine WBC 0 SEEN Ur Squamous Epith Cells 0 SEEN Urine Bacteria 0 SEEN Urine Mucus 0 SEEN Discharge Plan Triage Chief Complaint: Abd Pain ED Provider: Catalino Khan Dx/Rx/DC Orders Clinical Impression: Bilateral flank pain Instructions: ED Flank Pain, Uncertain Cause Prescriptions: No Action lisinopril 10 mg Tablet 10 mg PO DAILY RF: 0 Primary Care Provider: Guilherme Garces NP Referrals: Guilherme Garces NP, [facility] [Primary Care Provider] - 3-5 Days if not improving Disposition Disposition: Home, self care Discharge Date/Time: 03/25/21 06:12
[2021-03-25 04:52] LABS: Absolute Lymphocyte Count 3.11 X10^3/uL (0.83-4.51); Absolute Neutrophil Count 4.5 X10^3/uL (2.0-7.7); Basophil# 0.05 X10^3/uL; Basophil% 0.6 % (0-1); Eosinophil# 0.17 X10^3/uL; Eosinophils% 1.9 % (0-5); Hematocrit 43.3 % (40-54); Hemoglobin 14.4 g/dL (13.0-16.5); Lymphocyte # 3.11 X10^3/ul (0.83-4.51); Lymphocyte % 34.9 % (19-41); Mean Corp Hgb Conc 33.3 g/dL (32-36); Mean Corpuscular Hgb 31.7 pg (27.0-32.0); Mean Corpuscular Volume 95.4 fL (80-94); Mean Platelet Vol. 8.9 fl (6.2-12.0); Monocyte# 1.03 X10^3/uL; Monocyte% 11.6 % (0-10); NRBC Flagged by Analyzer 0 % (0-5); Neutrophil # 4.52 X10^3/uL (2.7-7.7); Neutrophil % 50.8 % (47-70); Platelet Count 282 K/mm3 (150-450); RBC Distribution Width CV 12.5 % (11.6-14.6); RBC Distribution Width SD 43.1 fl (35.1-43.9); Red Blood Count 4.54 M/mm3 (4.6-6.2); White Blood Count 8.9 K/mm3 (4.4-11.0)
[2021-03-25 04:53] LABS: Bacteria 0 SEEN /hpf (None Seen); Mucous, Urine 0 SEEN /hpf (<or=2+); Red Blood Cells-Urine 0 SEEN /hpf (0-5); Squamous Epithelial Cells - UA 0 SEEN /hpf (0-5); White Blood Cells 0 SEEN /hpf (0-5)
[2021-03-25 04:55] LABS: Color, Urine Yellow (Yellow); Glucose, Dipstick Normal (Normal); Ketone-Dipstick Negative (Negative); Leukocyte Esterase-Dipstick Negative /ul (Negative); Nitrite-Dipstick Negative (Negative); Occult Blood-Urine Negative /ul (Negative); Protein-Dipstick Negative (Negative); Urine Bilirubin Dipstick Negative (Negative); Urine Clarity Clear (Clear); Urine Urobilinogen Normal (Normal); Urine pH 6.5 (5.0 - 8.0)
[2021-03-25 05:27] LABS: ALB/GLOB Ratio 1.1 RATIO (0.9-2.4); AST(SGOT) 19 U/L (15-37); Alanine Aminotransfer ALT/SGPT 38 U/L (16-61); Albumin, Serum 3.8 g/dL (3.2-5.0); Alkaline Phosphatase 84 U/L (45-117); Anion Gap 4 (5-15); BUN 13 mg/dL (7-18); BUN/Creat Ratio 13.1 RATIO (10-20); Calcium,Total 8.8 mg/dL (8.5-10.1); Chloride 104 mmol/L (98-107); Creatinine, Serum 0.99 mg/dL (0.70-1.30); EST Glomerular Filtration Rate 88 mL/min (>60); Est Glom Filt Rate - Afr Amer 107 mL/min (>60); Globulin 3.6 g/dL (2.2-4.2); Glucose 103 mg/dL (74-106); Lipase 129 U/L (73-393); Potassium 3.9 mmol/L (3.5-5.1); Protein, Total 7.4 g/dL (6.4-8.2); Sodium Level 138 mmol/L (136-145)
== END 2021-03-25 06:12 | disposition home or self-care (01) ==
PROVIDERS: Emergency Provider Emergency Medicine; PCP Nurse Practitioner Family
DX: R10.9 Unspecified abdominal pain (principal); I10 Essential (primary) hypertension; Z79.899 Other long term (current) drug therapy; Z87.891 Personal history of nicotine dependence
CPT/HCPCS: 80053; 81001; 83690; 85025; 99284; A4216

== ENCOUNTER 2021-04-01 20:59 | Emergency (ER) | payer SELFPAY ==
[2021-04-01 21:00] VITALS: BP 159/87; PULSE 74; RESP 15; TEMP 36.7; O2SAT 100; BMI 33.8
[2021-04-01 21:17] VITALS: BP 133/85; PULSE 79; RESP 17; O2SAT 100
--- NOTE | 2021-04-01 21:25 | ED.VIS.CHEST ---
HPI History of Present Illness Chief Complaint: Palpitations Narrative Narrative: 40-year-old male presenting with palpitations. He states he has had this for the last 4 days and he is started on lisinopril prior to the symptoms. He states he gets palpitations and feels like his heart racing when he is lying down. Sometimes he has to sit in a chair. He states he has not been sleeping well over the past couple of days. He has been able to eat and drink normally. He states he is making normal urine. He denies fever, cough, shortness of breath, chest pain. [facility] Medical History HTN (hypertension) Home Medications lisinopril 10 mg PO DAILY 03/25/21 [History Last Taken Unknown] Allergy/AdvReac Type Severity Reaction Status Date / Time naproxen AdvReac Nausea Verified 04/01/21 21:00 Social History Smoking Status: Former smoker ROS [facility] ED Constitutional Constitutional ED: Denies chills, fever(s) or sweats Eyes Eyes: Denies blurry vision or change in vision ENT ENT ED: Denies ear pain, rhinorrhea or sore throat Cardiovascular Cardiovascular: Reports palpitations and racing heartbeat; Denies chest pain Respiratory/Chest Respiratory/Chest: Denies cough, dyspnea or sputum Gastrointestinal Gastrointestinal: Denies abdominal pain, constipation, diarrhea or vomiting Genitourinary Genitourinary ED: Denies dysuria, hematuria or urinary frequency Musculoskeletal Musculoskeletal: Denies arthralgias, myalgias or neck pain Integumentary Denies abscess, Abrasions or rash Neurologic Neurologic: Denies headache(s), paresthesias or weakness Psychiatric Psychiatric: Denies anxiety, depression, suicidal ideation or suicidal thoughts Endocrine Endocrinology: Denies polydipsia or polyuria EXAM Physical Exam Const Vital Signs: 04/01/21 21:00 04/01/21 21:17 04/01/21 21:18 Temperature 98.0 F Temperature Source Temporal Pulse Rate 74 79 Pulse Rate [Lying] Pulse Rate [Sitting] Pulse Rate [Standing] Respiratory Rate 15 17 Respiratory Effort Normal Non-Labored Blood Pressure 159/87 H 133/85 H Blood Pressure [Lying] Blood Pressure [Sitting] Blood Pressure [Standing] Blood Pressure Mean 111 101 Blood Pressure Mean [Lying] Blood Pressure Mean [Sitting] Blood Pressure Mean [Standing] Pulse Ox 100 100 Oxygen Delivery Method Room Air Room Air 04/01/21 21:59 Temperature Temperature Source Pulse Rate Pulse Rate [Lying] 64 Pulse Rate [Sitting] 68 Pulse Rate [Standing] 94 Respiratory Rate Respiratory Effort Blood Pressure Blood Pressure [Lying] 114/71 Blood Pressure [Sitting] 135/86 H Blood Pressure [Standing] 125/81 H Blood Pressure Mean Blood Pressure Mean [Lying] 85 Blood Pressure Mean [Sitting] 102 Blood Pressure Mean [Standing] 95 Pulse Ox Oxygen Delivery Method Positive obese General Appearance ED: NAD; Negative for pallor Nutritional Appearance: obese HEENT Reports normocephalic, head/scalp atraumatic and moist mucous membranes Eyes PERRL and EOMs intact bilaterally Neck no lymphadenopathy and supple Chest Wall inspection of chest normal and palpation of chest normal Resp normal respiratory effort and clear to auscultation bilaterally Auscultation: Negative for rales, rhonchi or wheezes Cardio regular rate and regular rhythm GI normal to inspection, nondistended, normoactive bowel sounds and non-distended Auscultation: normoactive bowel sounds Palpation: soft Narrative: Deferred Back/Spine no CVA tenderness General Back: Negative for CVA tenderness Cervical Spine: Negative for cervical spine tenderness Extremity normal to inspection General Extremety ED: Yes edema and tenderness General Extremity: edema Neuro oriented x3 and CN's II-XII intact bilaterally Sensorium / Orientation: alert Motor Exam: strength 5/5 throughout Psych mental status grossly normal Attitude: No agitated Skin no rashes or lesions noted and no wounds General Skin Exam: Negative for jaundice or pallor MDM MDM MDM Narrative Medical decision making narrative: 40-year-old male presenting with palpitations. He states he started lisinopril a few days ago and that is when the palpitations start. He also states that his PCP is going to do an outpatient echocardiogram as well as a Holter monitor. Patient EKG performed on arrival which is sinus rhythm at 69 bpm without signs of ischemic change. There is no signs of peaked T's. Lab work is unremarkable. Troponin is negative. Chest x-ray is interpreted by myself shows no acute cardiopulmonary process and radiology does agree. Patient has remained with a normal heart rate while he has been here. He is nontoxic-appearing. Again his vital signs are normal. I feel patient is safe to be discharged home at this time. He is to follow-up with his PCP to ensure resolution. Impression: 1. Palpitation Lab Data Attestation: I reviewed the patient's lab results. Labs: Laboratory Results - last 24 hr 04/01/21 04/01/21 21:16 21:16 WBC 8.4 RBC 5.01 Hgb 16.0 Hct 46.6 MCV 93.0 MCH 31.9 MCHC 34.3 RDW Std Deviation 41.3 RDW Coeff of Lior 12.0 Plt Count 338 MPV 8.8 Immature Gran % (Auto) 0.200 Neut % (Auto) 51.9 Lymph % (Auto) 36.6 [place] % (Auto) 10.0 Eos % (Auto) 0.7 Baso % (Auto) 0.6 Absolute Neuts (auto) 4.3 Absolute Lymphs (auto) 3.06 Nucleated RBC % 0 Sodium 134 L Potassium 3.6 Chloride 101 Carbon Dioxide 28.0 Anion Gap 5 BUN 13 Creatinine 1.03 Estim Creat Clear Calc 73.62 Est GFR (MDRD) Af Amer 103 Est GFR (MDRD) Non-Af 85 BUN/Creatinine Ratio 12.6 Glucose 92 Calcium 9.4 Troponin I < 0.015 Radiography Diagnostic Testing: Radiology Impression Chest X-Ray 04/01/21 21:35 IMPRESSION: No radiographic evidence of acute cardiopulmonary disease. at 2218 Reported and signed by: Carlos Alberto Hauser MD Electronically Signed: Carlos Alberto Hauser MD at 22:17 EDT Tel , Service support , Discharge Plan Triage Chief Complaint: Palpitations ED Provider: Bobby Alarcon Dx/Rx/DC Orders Instructions: ED Palpitations Prescriptions: No Action lisinopril 10 mg Tablet 10 mg PO DAILY RF: 0 Primary Care Provider: Guilherme Garces NP Referrals: Guilherme Garces NP, [employer] [Primary Care Provider] - Disposition Disposition: Home, self care
--- NOTE | 2021-04-01 21:27 | EKG12_ITS ---
Test Reason : PALPITATIONS Blood Pressure : / mmHG Vent. Rate : 069 BPM Atrial Rate : 069 BPM P-R Int : 150 ms QRS Dur : 094 ms QT Int : 390 ms P-R-T Axes : 017 042 030 degrees QTc Int : 417 ms Normal sinus rhythm Normal ECG Confirmed by JORDI PAN MD ([id number]), film editor JOHN MCGINNIS ([id number]) on 04/03/2021 1:17:03 PM Referred By: MICHELLE Confirmed By:JORDI PAN MD
[2021-04-01 21:35] LABS: Absolute Lymphocyte Count 3.06 X10^3/uL (0.83-4.51); Absolute Neutrophil Count 4.3 X10^3/uL (2.0-7.7); Basophil# 0.05 X10^3/uL; Basophil% 0.6 % (0-1); Eosinophil# 0.06 X10^3/uL; Eosinophils% 0.7 % (0-5); Hematocrit 46.6 % (40-54); Lymphocyte # 3.06 X10^3/ul (0.83-4.51); Lymphocyte % 36.6 % (19-41); Mean Corp Hgb Conc 34.3 g/dL (32-36); Mean Corpuscular Hgb 31.9 pg (27.0-32.0); Mean Platelet Vol. 8.8 fl (6.2-12.0); Monocyte# 0.84 X10^3/uL; NRBC Flagged by Analyzer 0 % (0-5); Neutrophil # 4.34 X10^3/uL (2.7-7.7); Neutrophil % 51.9 % (47-70); Platelet Count 338 K/mm3 (150-450); RBC Distribution Width SD 41.3 fl (35.1-43.9); Red Blood Count 5.01 M/mm3 (4.6-6.2); White Blood Count 8.4 K/mm3 (4.4-11.0)
--- NOTE | 2021-04-01 21:35 | RAD_ITS ---
HISTORY: chest pain EXAMINATION/TECHNIQUE: XR Chest 1 View: Portable upright AP chest x-ray COMPARISON: 03/03/21 FINDINGS: LINES/DEVICES: None. LUNGS: No consolidation, edema or effusion. No pneumothorax. MEDIASTINUM AND CARDIOVASCULAR STRUCTURES: Cardiac silhouette not enlarged. Central airways and mediastinal contour are unremarkable. BONES AND SOFT TISSUES: No acute bony abnormalities. RAD/Chest 1 View (Portable) IMPRESSION: No radiographic evidence of acute cardiopulmonary disease. at 2218 Reported and signed by: Carlos Alberto Hauser MD Electronically Signed: Carlos Alberto Hauser MD at 22:17 EDT Tel , Service support ,
[2021-04-01 21:59] VITALS: BP 114/71; BP 125/81; BP 135/86; PULSE 64; PULSE 68; PULSE 94
[2021-04-01 22:07] LABS: Anion Gap 5 (5-15); BUN 13 mg/dL (7-18); BUN/Creat Ratio 12.6 RATIO (10-20); Calcium,Total 9.4 mg/dL (8.5-10.1); Chloride 101 mmol/L (98-107); Creatinine, Serum 1.03 mg/dL (0.70-1.30); EST Glomerular Filtration Rate 85 mL/min (>60); Est Glom Filt Rate - Afr Amer 103 mL/min (>60); Estimated Creatinine Clearance 73.62 ml/min; Glucose 92 mg/dL (74-106); Potassium 3.6 mmol/L (3.5-5.1); Sodium Level 134 mmol/L (136-145)
[2021-04-01 23:38] VITALS: BP 122/89; PULSE 69; RESP 16; O2SAT 99
== END 2021-04-01 23:39 | disposition home or self-care (01) ==
PROVIDERS: Emergency Provider Student in an Organized Health Care Education/Training Program; PCP Nurse Practitioner Family
DX: R00.2 Palpitations (principal); I10 Essential (primary) hypertension; E66.9 Obesity, unspecified; Z79.899 Other long term (current) drug therapy; Z87.891 Personal history of nicotine dependence
CPT/HCPCS: 71045; 80048; 84484; 85025; 93005; 99283

== ENCOUNTER 2021-05-04 18:07 | Emergency (ER) | payer SELFPAY ==
[2021-05-04 18:07] VITALS: BP 160/73; PULSE 88; RESP 17; TEMP 36.4; O2SAT 98; BMI 33.5
--- NOTE | 2021-05-04 18:22 | EKG12_ITS ---
Test Reason : CP Blood Pressure : / mmHG Vent. Rate : 072 BPM Atrial Rate : 072 BPM P-R Int : 136 ms QRS Dur : 088 ms QT Int : 382 ms P-R-T Axes : 027 036 040 degrees QTc Int : 418 ms Normal sinus rhythm Normal ECG Confirmed by MAXIM PEÑALOZA, JORDI ([id number]), deputy editor in chief JOHN MCGINNIS ([id number]) on 05/08/2021 1:56:01 PM Referred By: ALLI Confirmed By:JORDI PAN MD
--- NOTE | 2021-05-04 18:26 | RAD_ITS ---
STUDY: X-RAY CHEST REASON FOR EXAM: Male, 40 years old. Chest pain TECHNIQUE: Frontal view COMPARISON: April 01, 2021. FINDINGS: The lungs are clear and expanded. There is no demonstrated pleural abnormality. Normal size heart. Normal mediastinum and rachel. Normal visualized pulmonary arteries. Normal visualized aortic arch and descending thoracic aorta. Normal visualized thoracic spine. Normal visualized ribs, clavicles, and shoulders. There is no demonstrated abnormality of the visualized soft tissue structures of the upper abdomen. RAD/Chest 1 View (Portable) IMPRESSION: Normal x-ray examination of the chest. Electronically Signed: Jeff Orellana DO at 19:29 EDT Tel [phone], Service support ,
--- NOTE | 2021-05-04 18:34 | EDS_ITS ---
HPI History of Present Illness Chief Complaint: Chest Pain Narrative Narrative: The patient complains of a sharp stabbing right-sided chest pain for 5 days it comes and goes nothing triggers it is not associate with movement activities meals. He also complains of a numbing sensation from the distal left wrist that starts at the wrist and then shoots up to the left shoulder not necessarily a sharp associate with the right-sided chest pain, he has had no trauma to his body no fever no cough it is unclear why he has either of these pain, he has no history of [place] PE DVT he has hypertension is generally well controlled but he ran out of his medications did not follow-up with his outpat ient providers for further outpatient management. [facility] Medical History HTN (hypertension) Home Medications lisinopril 10 mg PO DAILY 03/25/21 [History Last Taken Unknown] Allergy/AdvReac Type Severity Reaction Status Date / Time naproxen AdvReac Nausea Verified 05/04/21 18:07 Social History Smoking Status: Former smoker ROS ROS ED ROS Narrative Stabbing right-sided chest pain right wrist pain shooting in the shoulder only complaints Constitutional Constitutional ED: Reports subjective, sweats and other; Denies chills, fever(s) or weight loss Eyes Eyes: Denies blurry vision or change in vision ENT ENT ED: Denies ear pain Cardiovascular Cardiovascular: Reports chest pain; Denies palpitations Respiratory/Chest Respiratory/Chest: Denies dyspnea Gastrointestinal Gastrointestinal: Denies abdominal pain, nausea or vomiting Genitourinary Genitourinary ED: Denies dysuria or hematuria Musculoskeletal Musculoskeletal: Denies arthralgias or myalgias Integumentary Reports rash; Denies abscess Neurologic Neurologic: Denies weakness Psychiatric Psychiatric: Denies anxiety or depression Endocrine Endocrinology: Denies polydipsia or polyuria Allergic/Immunologic Allergic/Immunologic ED: Denies urticaria EXAM Physical Exam Narrative Exam Narrative: Physical exam is unremarkable he has no pain to palpation of the right chest his wrist exam hand exams unremarkable the rest exam is unremarkable see below Const Vital Signs: 05/04/21 18:07 05/04/21 18:18 05/04/21 18:40 Temperature 97.5 F L Temperature Source Temporal Pulse Rate 88 74 Respiratory Rate 17 18 Respiratory Effort Normal Non-Labored Blood Pressure 160/73 H 133/77 H Blood Pressure Mean 102 95 Pulse Ox 98 98 Oxygen Delivery Method Room Air Room Air 05/04/21 19:20 05/04/21 19:21 Temperature Temperature Source Pulse Rate 69 Respiratory Rate 14 Respiratory Effort Blood Pressure 131/81 H Blood Pressure Mean 97 Pulse Ox 96 Oxygen Delivery Method Room Air Positive well developed General Appearance ED: well developed HEENT Reports normocephalic Negative for trauma Eyes EOMs intact bilaterally Neck supple Chest Wall inspection of chest normal Resp normal respiratory effort Cardio regular rate GI non-tender and non-distended Back/Spine Back/Spine Narrative: unremarkable Extremity normal to inspection Neuro oriented x3 and CN's II-XII intact bilaterally Sensorium / Orientation: alert Psych mental status grossly normal Skin no rashes or lesions noted MDM MDM MDM Narrative Medical decision making narrative: Given his complaints and all the above ED screening evaluation with labs chest x-ray 1 view chest x-ray to my review shows nothing acute please see the radiology report, the EKG shows a sinus rhythm rate of about 72 no injury nothing acute screening labs are all generally unremarkable see those reports, explained to the patient he understands discussed inpatient versus outpatient management he is comfortable for discharge current blood pressure is 130/80 I explained to him he needs to follow with his outpatient providers for the sharp stabbing pain in his right chest continue his blood pressure regimen and return for change in symptoms he understands and will follow up with them Home stable Final impression is stabbing right-sided chest pain etiology unclear nonspecific intermittent pain to the left wrist Lab Data Labs: Laboratory Results - last 24 hr 05/04/21 05/04/21 05/04/21 18:50 18:50 18:50 WBC 7.4 RBC 4.50 L Hgb 14.3 Hct 42.4 MCV 94.2 H MCH 31.8 MCHC 33.7 RDW Std Deviation 43.3 RDW Coeff of Lior 12.5 Plt Count 288 MPV 9.0 Immature Gran % (Auto) 0.300 Neut % (Auto) 50.8 Lymph % (Auto) 34.4 [place] % (Auto) 12.5 H Eos % (Auto) 1.3 Baso % (Auto) 0.7 Absolute Neuts (auto) 3.8 Absolute Lymphs (auto) 2.55 Nucleated RBC % 0 Sodium 139 Potassium 3.5 Chloride 107 Carbon Dioxide 26.0 Anion Gap 6 BUN 11 Creatinine 1.08 Estim Creat Clear Calc 70.22 Est GFR (MDRD) Af Amer 97 Est GFR (MDRD) Non-Af 80 BUN/Creatinine Ratio 10.2 Glucose 95 Calcium 9.1 Troponin I < 0.015 B-Natriuretic Peptide 27.1 Discharge Plan Triage Chief Complaint: Chest Pain ED Provider: Matteo Tolliver Dx/Rx/DC Orders Clinical Impression: Chest pain Instructions: ED Chest Pain, Uncertain Cause Prescriptions: No Action lisinopril 10 mg Tablet 10 mg PO DAILY RF: 0 Primary Care Provider: Guilherme Garces NP Referrals: Guilherme Garces NP, [facility] [Primary Care Provider] -
[2021-05-04 18:38] LABS: Absolute Lymphocyte Count 2.55 X10^3/uL (0.83-4.51); Absolute Neutrophil Count 3.8 X10^3/uL (2.0-7.7); Basophil# 0.05 X10^3/uL; Basophil% 0.7 % (0-1); Eosinophils% 1.3 % (0-5); Hematocrit 42.4 % (40-54); Hemoglobin 14.3 g/dL (13.0-16.5); Lymphocyte # 2.55 X10^3/ul (0.83-4.51); Lymphocyte % 34.4 % (19-41); Mean Corp Hgb Conc 33.7 g/dL (32-36); Mean Corpuscular Hgb 31.8 pg (27.0-32.0); Mean Corpuscular Volume 94.2 fL (80-94); Monocyte# 0.93 X10^3/uL; Monocyte% 12.5 % (0-10); NRBC Flagged by Analyzer 0 % (0-5); Neutrophil # 3.77 X10^3/uL (2.7-7.7); Neutrophil % 50.8 % (47-70); Platelet Count 288 K/mm3 (150-450); RBC Distribution Width CV 12.5 % (11.6-14.6); RBC Distribution Width SD 43.3 fl (35.1-43.9); White Blood Count 7.4 K/mm3 (4.4-11.0)
[2021-05-04 18:40] VITALS: BP 133/77; PULSE 74; RESP 18; O2SAT 98
[2021-05-04] MEDS: Ondansetron 4 MG/2 ML Vial IV (18:40)
[2021-05-04] MEDS: morphine 8 MG/ML Syringe IV (18:41)
[2021-05-04 18:55] LABS: Anion Gap 6 (5-15); BNP,B-Type NATRIURETIC PEPTIDE 27.1 pg/mL (0-100); BUN 11 mg/dL (7-18); BUN/Creat Ratio 10.2 RATIO (10-20); Calcium,Total 9.1 mg/dL (8.5-10.1); Chloride 107 mmol/L (98-107); Creatinine, Serum 1.08 mg/dL (0.70-1.30); EST Glomerular Filtration Rate 80 mL/min (>60); Est Glom Filt Rate - Afr Amer 97 mL/min (>60); Estimated Creatinine Clearance 70.22 ml/min; Glucose 95 mg/dL (74-106); Potassium 3.5 mmol/L (3.5-5.1); Sodium Level 139 mmol/L (136-145)
[2021-05-04] MEDS: 0.9% Normal Saline 1,000 ML 150 ML IV (18:58)
[2021-05-04 19:20] VITALS: BP 131/81; PULSE 69; RESP 14; O2SAT 96
[2021-05-04 19:45] VITALS: BP 114/60; PULSE 79; RESP 16; O2SAT 98
== END 2021-05-04 19:46 | disposition home or self-care (01) ==
LOC: ED 18:47
PROVIDERS: Emergency Provider Emergency Medicine; PCP Nurse Practitioner Family
DX: R07.9 Chest pain, unspecified (principal); I10 Essential (primary) hypertension; Z87.891 Personal history of nicotine dependence
CPT/HCPCS: 71045; 80048; 83880; 84484; 85025; 93005; 96374; 96375; 99284; J7030; J2405

== ENCOUNTER 2021-06-29 08:34 | Emergency (ER) | payer SELFPAY ==
[2021-06-29 08:35] VITALS: BP 158/82; PULSE 88; RESP 16; TEMP 37; O2SAT 100; BMI 32.1
--- NOTE | 2021-06-29 08:53 | EKG12_ITS ---
Test Reason : PALPS Blood Pressure : / mmHG Vent. Rate : 070 BPM Atrial Rate : 070 BPM P-R Int : 138 ms QRS Dur : 094 ms QT Int : 374 ms P-R-T Axes : 052 036 045 degrees QTc Int : 403 ms Normal sinus rhythm Normal ECG Confirmed by SERJIO PEÑALOZA, LANE ([id number]), general expeditor JOHN MCGINNIS ([id number]) on 07/03/2021 9:53:46 AM Referred By: JOSE Confirmed By:LANE BASSETT MD
[2021-06-29] MEDS: 0.9% Normal Saline 1,000 ML 1000 ML IV (09:01)
[2021-06-29 09:03] VITALS: BP 136/75; PULSE 72; RESP 14; O2SAT 98
--- NOTE | 2021-06-29 09:05 | RAD_ITS ---
EXAM DESCRIPTION: PORTABLE AP CHEST CLINICAL HISTORY: 40 years Male, chest pain chest pain COMPARISON: Previous portable chest obtained on 2020 FINDINGS: The thorax is intact. The heart and mediastinum appear to be within normal limits. The lungs appear to be well areated without evidence of pneumonic consolidation or pleural effusion. RAD/Chest 1 View (Portable) IMPRESSION: Normal portable chest. Electronically Signed: Jamaal Sheth DO at 9:34 EDT Tel , Service support ,
[2021-06-29 09:10] LABS: Absolute Lymphocyte Count 1.62 X10^3/uL (0.83-4.51); Absolute Neutrophil Count 3.8 X10^3/uL (2.0-7.7); Basophil# 0.04 X10^3/uL; Basophil% 0.6 % (0-1); Eosinophil# 0.08 X10^3/uL; Eosinophils% 1.3 % (0-5); Hematocrit 42.9 % (40-54); Hemoglobin 14.4 g/dL (13.0-16.5); Lymphocyte # 1.62 X10^3/ul (0.83-4.51); Lymphocyte % 25.9 % (19-41); Mean Corp Hgb Conc 33.6 g/dL (32-36); Mean Corpuscular Hgb 31.2 pg (27.0-32.0); Mean Corpuscular Volume 93.1 fL (80-94); Monocyte# 0.72 X10^3/uL; Monocyte% 11.5 % (0-10); NRBC Flagged by Analyzer 0 % (0-5); Neutrophil # 3.79 X10^3/uL (2.7-7.7); Neutrophil % 60.5 % (47-70); Platelet Count 279 K/mm3 (150-450); RBC Distribution Width CV 12.1 % (11.6-14.6); Red Blood Count 4.61 M/mm3 (4.6-6.2); White Blood Count 6.3 K/mm3 (4.4-11.0)
--- NOTE | 2021-06-29 09:17 | EDS_ITS ---
HPI History of Present Illness Chief Complaint: Palpitations Informant: patient Narrative Narrative: Patient presents with palpitations. This has been a recurrent problem for him. It has been going on months or years. He has been seen here for this. He states he feels his heartbeat in his chest. But it is not painful. Sometimes it is fast but other times it is just a sensation of his heart beating. It most commonly occurs when he lays down at night. He does admit it comes on when he is anxious or thinking about things. He did see his physician several months ago. He went in there to talk about his anxiety and palpitations but they started him on lisinopril as his blood pressure was up. Due to difficulty getting a ride, he has not followed up for refill of his blood pressure. However, he has been trying to cut down his caffeine intake. He wo uld drink 7 or 8 cans of caffeinated drink a day. He would also drink 2 or more 22 ounce containers of caffeinated drinks at work. He has no recent travel, surgery, immobilization, personal or family history of DVT or PE. There is also no family history of heart attacks. He does smoke and was counseled to quit. Nothing consistently makes the symptoms better or worse. They do tend to occur at night and tend to occur when he is anxious. [facility] Medical History HTN (hypertension) Irregular heart beat Home Medications hydroxyzine pamoate [Vistaril] 25 mg PO TID PRN #14 cap 06/29/21 [Rx Last Taken Unknown] Allergy/AdvReac Type Severity Reaction Status Date / Time morphine AdvReac Other Verified 06/29/21 08:35 naproxen AdvReac Nausea Verified 06/29/21 08:35 Surgical History History of dental surgery Social History Smoking Status: Former smoker ROS ROS ED Constitutional Constitutional ED: Denies chills, fever(s) or sweats Eyes Eyes: Denies blurry vision or change in vision ENT ENT ED: Denies rhinorrhea or sore throat Cardiovascular Cardiovascular: Reports palpitations and racing heartbeat; Denies chest pain Respiratory/Chest Respiratory/Chest: Denies cough or dyspnea Gastrointestinal Gastrointestinal: Denies abdominal pain, nausea or vomiting Musculoskeletal Musculoskeletal: Denies back pain or neck pain Integumentary Denies rash Neurologic Neurologic: Denies headache(s), paresthesias or weakness Psychiatric Psychiatric: Reports anxiety; Denies depression, suicidal ideation or suicidal thoughts Endocrine Endocrinology: Denies polyuria Hematologic/Lymphatic Hematologic/Lymphatic: Denies easy bleeding or easy bruising EXAM Physical Exam Const Vital Signs: 06/29/21 08:35 06/29/21 08:58 06/29/21 09:02 Temperature 98.6 F Temperature Source Temporal Pulse Rate 88 Respiratory Rate 16 Respiratory Effort Normal Non-Labored Blood Pressure 158/82 H Blood Pressure Mean 107 Pulse Ox 100 Oxygen Delivery Method Room Air Room Air 06/29/21 09:03 Temperature Temperature Source Pulse Rate 72 Respiratory Rate 14 Respiratory Effort Blood Pressure 136/75 H Blood Pressure Mean 95 Pulse Ox 98 Oxygen Delivery Method Room Air Positive well nourished and well developed General Appearance ED: well developed and NAD HEENT normocephalic and atraumatic Eyes General Eye ED: Negative for pale conjunctiva or scleral icterus Neck supple Chest Wall inspection of chest normal Resp normal respiratory effort Effort and Inspection: respiratory distress Cardio regular rate, regular rhythm and no murmurs Rate: other Other Details: Normal peripheral pulses in both upper and lower extremities. GI normal to inspection, nondistended, normoactive bowel sounds, soft to palpation and non-tender Back/Spine no CVA tenderness Extremity General Extremety ED: Negative for edema or tenderness General Extremity: Negative for edema Neuro Sensorium / Orientation: awake and alert Psych Psych Narrative: Patient speaks very quickly. It is hard for him to not speak. He does admit to feeling a bit anxious right now. Mood & Affect: anxious Skin no rashes or lesions noted MDM MDM MDM Narrative Medical decision making narrative: Patient CBC electrolytes and troponin are negative. He has had symptoms for over 24 hours. He is also had symptoms going back months or even years. EKG shows no acute process. Chest x-ray shows no acute process. I talked with the patient. He would like something to help him for anxiety. I will write for some Vistaril. He has had 4 blood pressure checks here none of which are significantly elevated. I do not think we need to refill his lisinopril at this time. I have encouraged him to call his primary physician. They may even get him on a Holter monitor to further evaluate this. He should return if he has pain, lightheadedness, syncopal spells or any other concerns. Lab Data Attestation: I reviewed the patient's lab results. Labs: Laboratory Results - last 24 hr 06/29/21 06/29/21 09:00 09:00 WBC 6.3 RBC 4.61 Hgb 14.4 Hct 42.9 MCV 93.1 MCH 31.2 MCHC 33.6 RDW Std Deviation 42.0 RDW Coeff of Lior 12.1 Plt Count 279 MPV 9.0 Immature Gran % (Auto) 0.200 Neut % (Auto) 60.5 Lymph % (Auto) 25.9 Lane % (Auto) 11.5 H Eos % (Auto) 1.3 Baso % (Auto) 0.6 Absolute Neuts (auto) 3.8 Absolute Lymphs (auto) 1.62 Nucleated RBC % 0 Sodium 139 Potassium 3.9 Chloride 106 Carbon Dioxide 25.0 Anion Gap 8 BUN 16 Creatinine 1.05 Estim Creat Clear Calc 75.26 Est GFR (MDRD) Af Amer 100 Est GFR (MDRD) Non-Af 83 BUN/Creatinine Ratio 15.2 Glucose 111 H Calcium 9.0 Troponin I High Sens 5.0 Radiography Diagnostic Testing: Radiology Impression Chest X-Ray 06/29/21 09:05 IMPRESSION: Normal portable chest. Electronically Signed: Jamaal Sheth DO at 9:34 EDT Tel , Service support , EKG Initial EKG: Comments: EKG done for palpitations read by me shows normal sinus rhythm w ith a rate of 70. No ventricular ectopy. No acute ST elevation or depression consistent with infarct or ischemia. NH interval, QRS duration and QTc is normal. Discharge Plan Triage Chief Complaint: Palpitations ED Provider: Jeison Lennon Dx/Rx/DC Orders Clinical Impression: Palpitations Instructions: ED Palpitations Prescriptions: New hydroxyzine pamoate [Vistaril] 25 mg capsule 25 mg PO TID PRN (Reason: anxiety) Qty: 14 RF: 0 Primary Care Provider: Guilherme Garces ACTIVITY ASSISTANT Referrals: Guilherme Garces NP, [facility]IV[facility] ASSISTANT-C [Primary Care Provider] - 3-5 Days Disposition Disposition: Home, Self Care
[2021-06-29 09:27] LABS: Anion Gap 8 (5-15); BUN 16 mg/dL (7-18); BUN/Creat Ratio 15.2 RATIO (10-20); Chloride 106 mmol/L (98-107); Creatinine, Serum 1.05 mg/dL (0.70-1.30); EST Glomerular Filtration Rate 83 mL/min (>60); Est Glom Filt Rate - Afr Amer 100 mL/min (>60); Estimated Creatinine Clearance 75.26 ml/min; Glucose 111 mg/dL (74-106); Potassium 3.9 mmol/L (3.5-5.1); Sodium Level 139 mmol/L (136-145)
[2021-06-29 09:55] VITALS: BP 129/84; PULSE 83; RESP 16; O2SAT 100
== END 2021-06-29 09:56 | disposition home or self-care (01) ==
PROVIDERS: Emergency Provider Emergency Medicine; PCP Nurse Practitioner Family
DX: R00.2 Palpitations (principal); I10 Essential (primary) hypertension; Z79.899 Other long term (current) drug therapy; Z87.891 Personal history of nicotine dependence
CPT/HCPCS: 71045; 80048; 84484; 85025; 93005; 96360; 99284; J7030; A4216

== ENCOUNTER 2021-07-13 05:06 | Emergency (ER) | payer SELFPAY ==
[2021-07-13 05:07] VITALS: BP 165/80; PULSE 99; RESP 16; TEMP 36.4; O2SAT 98; BMI 33.6
--- NOTE | 2021-07-13 05:47 | ED.VIS.DENTA ---
HPI History of Present Illness Chief Complaint: Dental Narrative Narrative: 41-year-old male presenting with left sided facial swelling. He states he had this for 5 days. He has been on penicillin VK have been taken ibuprofen however is it has not improved or gotten worse. He has a dentist appointment for the second of next month. He states that he is not getting as much sleep as he could because of the pain. He denies fever or chills. He denies difficulty swallowing, speaking, breathing. He states that he has never been on penicillin VK before for dental infection but what he has been on usually works better. [facility] Medical History HTN (hypertension) Irregular heart beat Home Medications clindamycin HCl 450 mg PO 4X/DAY #80 capsule 07/13/21 [Rx Last Taken Unknown] oxycodone-acetaminophen [Percocet] 1 tab PO Q6H PRN 3 Days #12 tab 07/13/21 [Rx Last Taken Unknown] penicillin V potassium 500 mg PO Q6H 07/13/21 [History Last Taken Unknown] Allergy/AdvReac Type Severity Reaction Status Date / Time morphine AdvReac Other Verified 07/13/21 05:07 naproxen AdvReac Nausea Verified 07/13/21 05:07 Surgical History History of dental surgery Social History Smoking Status: Former smoker ROS ROS ED Constitutional Constitutional ED: Denies chills or fever(s) Eyes Eyes: Denies blurry vision or change in vision ENT ENT ED: Reports other Details: Left-sided jaw pain and swelling ; Denies ear pain, rhinorrhea or sore throat Respiratory/Chest Respiratory/Chest: Denies cough or dyspnea Gastrointestinal Gastrointestinal: Denies abdominal pain, nausea or vomiting Genitourinary Genitourinary ED: Denies dysuria or hematuria Musculoskeletal Musculoskeletal: Denies arthralgias or myalgias Integumentary Denies Abrasions or rash Neurologic Neurologic: Denies headache(s) or paresthesias EXAM Physical Exam Const Vital Signs: 07/13/21 05:07 Temperature 97.6 F L Temperature Source Temporal Pulse Rate 99 Respiratory Rate 16 Blood Pressure 165/80 H Blood Pressure Mean 108 Pulse Ox 98 Oxygen Delivery Method Room Air Positive well nourished HEENT HEENT Narrative: Left-sided jaw swelling and left cheek swelling. No fluctuant masses appreciated. There is a small 1 cm circular area of which projects from the left cheek which is similar to a lipoma. This is nontender. Mouth ED: Yes lips normal, Yes tongue normal and Yes salivary gland normal Mouth: lips normal, tongue normal and salivary gland normal Teeth and Gingiva: caries and poor dentition Throat: posterior oropharynx normal Eyes PERRL and EOMs intact bilaterally Cardio regular rate and regular rhythm Neuro oriented x3 Sensorium / Orientation: alert Skin no rashes or lesions noted MDM MDM MDM Narrative Medical decision making narrative: Patient presenting with continued dental pain. He states that the penicillin VK isn't working he is never had this before. He does have a dental appointment on the second of next month. He states his pain is not worse or better and his swelling is not worse or better either. He denies any systemic signs or symptoms. On examination he does not have any sublingual edema. His tongue is normal. There is some facial swelling on the left jawline which he himself describes as the same as it was. 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 I will switch the patient to clindamycin and give him Percocet for pain for home. He is counseled on return precautions and counseled to call his dentist to see if he can get an earlier visit. Patient amenable to this plan. He is given his first doses in the ED. Impression: 1. Dental infection Discharge Plan Triage Chief Complaint: Dental ED Provider: Bobby Alarcon Dx/Rx/DC Orders Instructions: ED Dental Abscess Prescriptions: New clindamycin HCl 150 mg capsule 450 mg PO 4X/DAY Qty: 80 RF: 0 oxycodone-acetaminophen [Percocet] 5-325 mg tablet 1 tab PO Q6H PRN (Reason: pain) 3 Days Qty: 12 RF: 0 No Action penicillin V potassium 500 mg tablet 500 mg PO Q6H RF: 0 Primary Care Provider: Guilherme Garces NP Referrals: Guilherme Garces NP, [employer] [Primary Care Provider] - Disposition Disposition: Home, Self Care
[2021-07-13] MEDS: Clindamycin HCl 150 MG Capsule 450 MG PO (05:57)
[2021-07-13] MEDS: oxyCODONE 5 MG Tablet PO (05:57)
== END 2021-07-13 06:00 | disposition home or self-care (01) ==
PROVIDERS: Emergency Provider Student in an Organized Health Care Education/Training Program; PCP Nurse Practitioner Family
DX: K04.7 Periapical abscess without sinus (principal); Z87.891 Personal history of nicotine dependence
CPT/HCPCS: 99283

== ENCOUNTER 2021-08-16 08:13 | Emergency (ER) | payer SELFPAY ==
[2021-08-16 08:14] VITALS: BP 162/112; PULSE 78; RESP 16; TEMP 36.1; O2SAT 100; BMI 32.8
[2021-08-16 08:24] VITALS: BP 166/80; PULSE 78; PULSE 89; RESP 14; O2SAT 100
--- NOTE | 2021-08-16 08:25 | EKG12_ITS ---
Test Reason : CP Blood Pressure : / mmHG Vent. Rate : 070 BPM Atrial Rate : 070 BPM P-R Int : 138 ms QRS Dur : 100 ms QT Int : 394 ms P-R-T Axes : 050 042 045 degrees QTc Int : 425 ms Normal sinus rhythm Normal ECG Confirmed by MAXIM PEÑALOAZ, JORDI ([id number]), multimedia editor SHANNON SAENZ ([id number]) on 08/17/2021 1:47:06 PM Referred By: TOMMY Confirmed By:JORDI PAN MD
--- NOTE | 2021-08-16 08:25 | EDS_ITS ---
HPI History of Present Illness Chief Complaint: Chest Pain Informant: patient Narrative Narrative: 41-year-old male presents the emergency room for the evaluation of intermittent sharp right-sided chest pain. Tells me symptoms have been ongoing for the past several days. States that at times it feels like he cannot catch her breath. He notes that on Saturday before his symptoms began he is having pain in his right leg when he would go to bend over. He states that nothing seems to make the pain come on. It will stay for a few minutes and then leave. No prior DVT or PE. He notes a prior history of hypertension is not currently on any medications because he did not follow-up. [facility] Medical History HTN (hypertension) Irregular heart beat Allergy/AdvReac Type Severity Reaction Status Date / Time morphine AdvReac Other Verified 08/16/21 08:16 naproxen AdvReac Nausea Verified 08/16/21 08:16 Surgical History History of dental surgery Social History (Updated 08/16/21 @ 08:[address] Guilherme Callahan DO) Smoking Status: Former smoker substance use type: does not use ROS ROS ED Constitutional Constitutional ED: Denies chills or weight loss Eyes Eyes: Denies change in vision or diplopia ENT ENT ED: Denies ear pain, rhinorrhea or sore throat Cardiovascular Cardiovascular: Reports chest pain; Denies orthopnea, palpitations or racing heartbeat Respiratory/Chest Respiratory/Chest: Reports dyspnea; Denies cough or orthopnea Gastrointestinal Gastrointestinal: Denies abdominal pain, diarrhea, nausea or vomiting Genitourinary Genitourinary ED: Denies dysuria, hematuria or urinary frequency Musculoskeletal Musculoskeletal: Denies arthralgias or myalgias Integumentary Denies abscess or rash Neurologic Neurologic: Denies headache(s) or weakness Psychiatric Psychiatric: Denies anxiety, depression, suicidal ideation or suicidal thoughts Endocrine Endocrinology: Denies polydipsia, polyphagia or polyuria Allergic/Immunologic Allergic/Immunologic ED: Denies mouth swelling, tongue swelling or urticaria EXAM Physical Exam Const Vital Signs: 08/16/21 08:14 08/16/21 08:24 08/16/21 08:26 Temperature 97.0 F L Temperature Source Temporal Pulse Rate 78 78 Respiratory Rate 16 14 Respiratory Effort Normal Blood Pressure 162/112 H 166/80 H Blood Pressure Mean 128 108 Pulse Ox 100 100 Oxygen Delivery Method Room Air Room Air Positive well nourished and well developed General Appearance ED: well developed HEENT Reports normocephalic, head/scalp atraumatic and moist mucous membranes Eyes PERRL and EOMs intact bilaterally Neck no lymphadenopathy, supple and no JVD Resp normal respiratory effort and clear to auscultation bilaterally Cardio regular rate, regular rhythm and no murmurs GI normal to inspection, nondistended, normoactive bowel sounds and non-tender Palpation: soft Back/Spine no CVA tenderness and normal ROM Extremity normal to inspection General Extremety ED: Negative for edema General Extremity: Negative for edema Neuro oriented x3 and CN's II-XII intact bilaterally Sensorium / Orientation: alert Motor Exam: strength 5/5 throughout Psych mental status grossly normal Mood & Affect: Negative for depressed or tearful Skin no rashes or lesions noted and no wounds Heart Score History: Slightly/Non-Suspicious ECG: Normal Age: </= 45 years Risk Factors: 1 or 2 Risk Factors Troponin: </= Normal Limit Score: 1 MDM MDM MDM Narrative Medical decision making narrative: My interpretation of the patient's chest x- ray is no acute process. D-dimer and troponin within normal limits. CBC and BMP normal. Given the patient's history exam and above findings it is reasonable the patient be discharged home. Would recommend some anti- inflammatories and encouraged to follow-up with his primary care physician not only for the ER visit but for follow-up on his hypertension. Lab Data Attestation: I reviewed the patient's lab results. Labs: Laboratory Results - last 24 hr 08/16/21 08/16/21 08/16/21 08:30 08:30 08:30 WBC 5.8 RBC 4.80 Hgb 14.9 Hct 44.4 MCV 92.5 MCH 31.0 MCHC 33.6 RDW Std Deviation 42.2 RDW Coeff of Lior 12.4 Plt Count 287 MPV 8.8 Immature Gran % (Auto) 0.200 Neut % (Auto) 56.9 Lymph % (Auto) 28.5 [place] % (Auto) 12.3 H Eos % (Auto) 1.6 Baso % (Auto) 0.5 Absolute Neuts (auto) 3.3 Absolute Lymphs (auto) 1.65 Nucleated RBC % 0 D-Dimer Quant (PE/DVT) <= 0.27 Sodium 138 Potassium 3.4 L Chloride 107 Carbon Dioxide 27.0 Anion Gap 4 L BUN 10 Creatinine 0.92 Estim Creat Clear Calc 85.04 Est GFR (MDRD) Af Amer 117 Est GFR (MDRD) Non-Af 97 BUN/Creatinine Ratio 10.9 Glucose 116 H Calcium 8.9 Troponin I High Sens 6 EKG Initial EKG: Attestation: I personally reviewed and interpreted this EKG as follows: Comments: Normal sinus rhythm at a rate of 70 bpm Discharge Plan Triage Chief Complaint: Chest Pain ED Provider: Guilherme Callahan Dx/Rx/DC Orders Clinical Impression: Chest pain, Hypertension Instructions: Hypertension Dc, ED Chest Pain, Noncardiac Primary Care Provider: Guilherme Garces NP Referrals: Guilherme Garces NP, [facility] [facility] [Primary Care Provider] - As soon as possible Disposition Disposition: Home, Self Care
--- NOTE | 2021-08-16 08:31 | RAD_ITS ---
STUDY: X-RAY CHEST REASON FOR EXAM: Male, 41 years old. Chest pain TECHNIQUE: Single AP portable view of the chest. COMPARISON: Comparison is made with prior examination dated 06/29/2021. FINDINGS: EKG electrodes are seen. The lungs are clear and expanded. There is no demonstrated pleural abnormality. Normal size heart. Normal mediastinum and rachel. Normal visualized pulmonary arteries. Normal visualized aortic arch and descending thoracic aorta. Normal visualized thoracic spine. Normal visualized ribs, clavicles, and shoulders. There is no demonstrated abnormality of the visualized soft tissue structures of the upper abdomen. RAD/Chest 1 View (Portable) IMPRESSION: Normal x-ray examination of the chest. Electronically Signed: Goran Lobato MD at 9:26 EDT , Service support ,
[2021-08-16 08:37] LABS: Absolute Lymphocyte Count 1.65 X10^3/uL (0.83-4.51); Absolute Neutrophil Count 3.3 X10^3/uL (2.0-7.7); Basophil# 0.03 X10^3/uL; Basophil% 0.5 % (0-1); Eosinophil# 0.09 X10^3/uL; Eosinophils% 1.6 % (0-5); Hematocrit 44.4 % (40-54); Hemoglobin 14.9 g/dL (13.0-16.5); Lymphocyte # 1.65 X10^3/ul (0.83-4.51); Lymphocyte % 28.5 % (19-41); Mean Corp Hgb Conc 33.6 g/dL (32-36); Mean Corpuscular Volume 92.5 fL (80-94); Mean Platelet Vol. 8.8 fl (6.2-12.0); Monocyte# 0.71 X10^3/uL; Monocyte% 12.3 % (0-10); NRBC Flagged by Analyzer 0 % (0-5); Neutrophil # 3.29 X10^3/uL (2.7-7.7); Neutrophil % 56.9 % (47-70); Platelet Count 287 K/mm3 (150-450); RBC Distribution Width CV 12.4 % (11.6-14.6); RBC Distribution Width SD 42.2 fl (35.1-43.9); White Blood Count 5.8 K/mm3 (4.4-11.0)
[2021-08-16 08:50] LABS: D-Dimer Quantitative (DVT/PE) <= 0.27 FEU/ug/m (0.27-0.49)
[2021-08-16 08:55] LABS: Anion Gap 4 (5-15); BUN 10 mg/dL (7-18); BUN/Creat Ratio 10.9 RATIO (10-20); Calcium,Total 8.9 mg/dL (8.5-10.1); Chloride 107 mmol/L (98-107); Creatinine, Serum 0.92 mg/dL (0.70-1.30); EST Glomerular Filtration Rate 97 mL/min (>60); Est Glom Filt Rate - Afr Amer 117 mL/min (>60); Estimated Creatinine Clearance 85.04 ml/min; Glucose 116 mg/dL (74-106); Potassium 3.4 mmol/L (3.5-5.1); Sodium Level 138 mmol/L (136-145); Troponin-I HS 6 pg/mL (3.0-78.0)
[2021-08-16 09:18] VITALS: BP 129/80; PULSE 67; RESP 12; TEMP 36.9; O2SAT 99
[2021-08-16 09:19] VITALS: BP 129/80; PULSE 66; RESP 12; TEMP 36.9; O2SAT 99
== END 2021-08-16 09:45 | disposition home or self-care (01) ==
LOC: ED 09:17
PROVIDERS: Emergency Provider Emergency Medicine; PCP Nurse Practitioner Family
DX: R07.9 Chest pain, unspecified (principal); I10 Essential (primary) hypertension; Z87.891 Personal history of nicotine dependence
CPT/HCPCS: 71045; 80048; 84484; 85025; 85379; 93005; 99284; A4216

== ENCOUNTER 2022-01-03 06:29 | Emergency (ER) | payer SELFPAY ==
[2022-01-03 06:31] VITALS: BP 121/71; PULSE 98; RESP 23; TEMP 37.1; O2SAT 100; BMI 34.9
--- NOTE | 2022-01-03 06:42 | RAD_ITS ---
STUDY: X-RAY CHEST REASON FOR EXAM: Male, 41 years old chest pain. TECHNIQUE: Single AP portable view of the chest. COMPARISON: Chest radiograph dated 08/16/2021. FINDINGS: Cardiac monitoring leads are present. The lungs are clear and expanded. There is no demonstrated pleural abnormality. Normal size heart. Normal mediastinum and rachel. Normal visualized pulmonary arteries. Normal visualized aortic arch and descending thoracic aorta. Normal visualized thoracic spine. Normal visualized ribs, clavicles, and shoulders. There is no demonstrated abnormality of the visualized soft tissue structures of the upper abdomen. RAD/Chest 1 View (Portable) IMPRESSION: No radiographic evidence of acute cardiopulmonary disease. Electronically Signed: Mamie Reyes MD at 7:04 [facility] ,
--- NOTE | 2022-01-03 06:42 | EKG12_ITS ---
Test Reason : CP Blood Pressure : / mmHG Vent. Rate : 094 BPM Atrial Rate : 094 BPM P-R Int : 136 ms QRS Dur : 090 ms QT Int : 348 ms P-R-T Axes : 053 047 047 degrees QTc Int : 435 ms Normal sinus rhythm Normal ECG Confirmed by SERJIO PEÑALOZA, LANE ([id number]), editor department JOHN MCGINNIS ([id number]) on 01/04/2022 9:27:10 AM Referred By: Confirmed By:LANE BASSETT MD
--- NOTE | 2022-01-03 06:43 | ED.VIS.CHEST ---
HPI History of Present Illness Chief Complaint: Chest Pain Narrative Narrative: Patient presents with right-sided chest pain that began yesterday evening at around 8 PM, almost 11 hours ago. He states that there is a sharp, stabbing pain in his right chest that happens every 10 minutes, and has been happening all night. He was unable to sleep. He denies any nausea or vomiting. No diaphoresis. As he was coming down the stairs today, however he felt short of breath. He denies any DVT or PE risk factors. He does have past medical history of anxiety and thinks he may have become anxious over this. His past medical history includes hypertension for which she started lisinopril 3 months ago. He states his blood pressure has been controlled with this as when he takes his blood pressure on his medication it is 110/60. He denies any leg swelling. No true exertional component to his chest pain. He denies any significant family history for early coronary artery disease. [facility] Medical History HTN (hypertension) Irregular heart beat Home Medications lisinopril 10 mg PO DAILY 01/03/22 [History Last Taken Unknown] Allergy/AdvReac Type Severity Reaction Status Date / Time morphine AdvReac Other Verified 01/03/22 06:30 naproxen AdvReac Nausea Verified 01/03/22 06:30 Surgical History History of dental surgery Social History Smoking Status: Unknown if ever smoked substance use type: does not use ROS ROS ED ROS Narrative Constitutional: No fever, no chills. HEENT: No sore throat. No neck pain. No loss of vision. No rhinorrhea. Cardiovascular: Right-sided, sharp, stabbing, fleeting chest pain. No palpitations. No pedal edema. Respiratory: No cough, positive shortness of breath. Abdominal: No abdominal pain. No nausea. No vomiting. Genitourinary: No dysuria. No hematuria. Musculoskeletal: No myalgias. No arthralgias. Neurologic: No headaches. No dizziness. No lightheadedness. Skin: No rash. No change in color. Psychiatric: No depression. No anxiety. EXAM Physical Exam Narrative Exam Narrative: Afebrile. Vital signs noted. HEENT: Normocephalic. Atraumatic. PERRL, EOMI. Neck soft and supple. No point tenderness or step off. Cardiovascular: Regular rate and rhythm. No murmurs, rubs, or gallops appreciated. Respiratory: No tachypnea. Lungs clear to auscultation bilaterally. Gastrointestinal: Abdomen soft, nontender, with normoactive bowel sounds. No rebound or guarding. Neurological: Awake. Alert. Nonfocal, nonlateralizing. Skin: No rash. Normal color. No pallor. Musculoskeletal: No pedal edema. Full range of motion extremities. Const Vital Signs: 01/03/22 06:31 01/03/22 06:37 01/03/22 06:45 Temperature 98.7 F Temperature Source Temporal Pulse Rate 98 Respiratory Rate 23 H Respiratory Pattern Normal Blood Pressure 121/71 H Blood Pressure Mean 87 Pulse Ox 100 Oxygen Delivery Method Room Air Room Air Heart Score History: Slightly/Non-Suspicious ECG: Normal Age: </= 45 years Risk Factors: 1 or 2 Risk Factors Score: 1 MDM MDM MDM Narrative Medical decision making narrative: Chest pain work-up was pursued. His EKG demonstrates normal sinus rhythm at 94 bpm without ectopy or acute ST changes. He was administered aspirin. I will obtain high-sensitivity troponins, and a D-dimer along with a chest x-ray. CBC is grossly normal. D-dimer negative at less than 0.27. Troponin is negative at 4. Electrolyte panel is grossly unremarkable except for glucose of 115. Chest x-ray shows no acute cardiopulmonary disease. At this point in time, patient will be signed out to the oncoming physician, Dr. Lennon to check the second troponin and make final disposition. I do feel that should it be negative that he would be discharged home to follow-up with his primary care physician. He was given a note to be off work today. Disposition is pending second troponin. He is in stable condition. Lab Data Attestation: I reviewed the patient's lab results. Labs: Laboratory Results - last 24 hr 01/03/22 01/03/22 01/03/22 06:32 06:32 06:32 WBC 8.4 RBC 4.61 Hgb 14.6 Hct 43.2 MCV 93.7 MCH 31.7 MCHC 33.8 RDW Std Deviation 43.9 RDW Coeff of Lior 12.9 Plt Count 348 MPV 8.8 Immature Gran % (Auto) 0.200 Neut % (Auto) 46.5 L Lymph % (Auto) 36.9 [place] % (Auto) 12.9 H Eos % (Auto) 2.7 Baso % (Auto) 0.8 Absolute Neuts (auto) 3.9 Absolute Lymphs (auto) 3.09 Nucleated RBC % 0 D-Dimer Quant (PE/DVT) <= 0.27 Sodium 137 Potassium 3.5 Chloride 104 Carbon Dioxide 26.0 Anion Gap 7 BUN 12 Creatinine 1.05 Estim Creat Clear Calc 74.51 Est GFR (MDRD) Af Amer 100 Est GFR (MDRD) Non-Af 83 BUN/Creatinine Ratio 11.4 Glucose 115 H Calcium 8.8 Troponin I High Sens 4 Radiography Diagnostic Testing: Clinical Impression(s) from Imaging Studies Chest X-Ray 01/03/22 06:42 IMPRESSION: No radiographic evidence of acute cardiopulmonary disease. Electronically Signed: Mamie Reyes MD at 7:04 EST Reading Location ID and State: [address] [place] [address] , Service support , Discharge Plan Triage Chief Complaint: Chest Pain ED Provider: Fracisco Briceño Dx/Rx/DC Orders Clinical Impression: Chest pain, SOB (shortness of breath) on exertion Instructions: ED Chest Pain, Uncertain Cause, ED Dyspnea Prescriptions: No Action lisinopril 10 mg tablet 10 mg PO DAILY RF: 0 Stand Alone Forms: ED Work / School Excuse Primary Care Provider: Guilherme Garces NP Referrals: Guilherme Garces NP, IRON BENDER-C [Primary Care Provider] - 3-5 Days if not improving
[2022-01-03 06:50] LABS: Absolute Lymphocyte Count 3.09 X10^3/uL (0.83-4.51); Absolute Neutrophil Count 3.9 X10^3/uL (2.0-7.7); Basophil# 0.07 X10^3/uL; Basophil% 0.8 % (0-1); Eosinophil# 0.23 X10^3/uL; Eosinophils% 2.7 % (0-5); Hematocrit 43.2 % (40-54); Hemoglobin 14.6 g/dL (13.0-16.5); Lymphocyte # 3.09 X10^3/ul (0.83-4.51); Lymphocyte % 36.9 % (19-41); Mean Corp Hgb Conc 33.8 g/dL (32-36); Mean Corpuscular Hgb 31.7 pg (27.0-32.0); Mean Corpuscular Volume 93.7 fL (80-94); Mean Platelet Vol. 8.8 fl (6.2-12.0); Monocyte# 1.08 X10^3/uL; Monocyte% 12.9 % (0-10); NRBC Flagged by Analyzer 0 % (0-5); Neutrophil # 3.88 X10^3/uL (2.7-7.7); Neutrophil % 46.5 % (47-70); Platelet Count 348 K/mm3 (150-450); RBC Distribution Width CV 12.9 % (11.6-14.6); RBC Distribution Width SD 43.9 fl (35.1-43.9); Red Blood Count 4.61 M/mm3 (4.6-6.2); White Blood Count 8.4 K/mm3 (4.4-11.0)
[2022-01-03] MEDS: Aspirin 81 MG TAB.CHEW 324 MG PO (06:50)
[2022-01-03 07:05] LABS: Anion Gap 7 (5-15); BUN 12 mg/dL (7-18); BUN/Creat Ratio 11.4 RATIO (10-20); Calcium,Total 8.8 mg/dL (8.5-10.1); Chloride 104 mmol/L (98-107); Creatinine, Serum 1.05 mg/dL (0.70-1.30); EST Glomerular Filtration Rate 83 mL/min (>60); Est Glom Filt Rate - Afr Amer 100 mL/min (>60); Estimated Creatinine Clearance 74.51 ml/min; Glucose 115 mg/dL (74-106); Potassium 3.5 mmol/L (3.5-5.1); Sodium Level 137 mmol/L (136-145); Troponin-I HS 4 pg/mL (3.0-78.0)
[2022-01-03 07:07] LABS: D-Dimer Quantitative (DVT/PE) <= 0.27 FEU/ug/m (0.27-0.49)
[2022-01-03 07:35] VITALS: BP 118/71; PULSE 79; RESP 16; O2SAT 98
[2022-01-03 08:03] VITALS: BP 102/71; PULSE 64; RESP 24; O2SAT 99
[2022-01-03 09:09] VITALS: BP 119/74; PULSE 67; RESP 13; O2SAT 100
[2022-01-03 09:13] LABS: Troponin-I HS 5 pg/mL (3.0-78.0)
[2022-01-03 09:51] VITALS: BP 122/71; PULSE 69; RESP 16; O2SAT 98
== END 2022-01-03 09:53 | disposition home or self-care (01) ==
PROVIDERS: Emergency Medicine; Emergency Provider Emergency Medicine; PCP Nurse Practitioner Family; Visit Provider Emergency Medicine
DX: R07.9 Chest pain, unspecified (principal); I10 Essential (primary) hypertension; F41.9 Anxiety disorder, unspecified; R06.02 Shortness of breath
CPT/HCPCS: 36415; 71045; 80048; 84484; 85025; 85379; 93005; 99285; A4216

== ENCOUNTER 2022-01-10 08:26 | Emergency (ER) | payer SELFPAY ==
[2022-01-10 08:28] VITALS: BP 140/87; PULSE 96; RESP 17; TEMP 36.3; O2SAT 100; BMI 36.1
--- NOTE | 2022-01-10 08:48 | CT_ITS ---
STUDY: CT ABDOMEN AND PELVIS WITHOUT CONTRAST REASON FOR EXAM: Male, 41 years old. Right flank pain RADIATION DOSAGE (If Supplied By Facility): CTDIvol = ( 10.61 ) mGy, DLP = ( 524.84 ) mGycm TECHNIQUE: Transaxial images were obtained from the dome of the diaphragm to the symphysis pubis without oral contrast, and without intravenous contrast. Sagittal and coronal images were reconstructed. Individualized dose optimization techniques were used for this CT. COMPARISON: Comparison is made with prior study dated 02/19/2021. FINDINGS: Stable linear density in the anterior aspect of the left lower lobe suggestive of lingular scarring. The visualized portions of the heart are within normal limits. Normal liver. Normal gallbladder and extrahepatic biliary system. Normal spleen. Normal pancreas. Normal bilateral adrenal glands. Normal right kidney. Normal left kidney. Normal visualized stomach. Normal small intestine. Normal colon. The appendix is visualized and appears normal. Mild degree of increased markings in the root of the mesentery. This is nonspecific. Small lymph nodes are seen within the within the mesenteric fat. The largest lymph node measures 1.1 cm. This is essentially unchanged. Normal abdominal aorta. Normal inferior vena cava. There is borderline retroperitoneal lymphadenopathy with enlarged nodes no greater than 10mm in the short axis diameter. The bladder is not well distended. Mild degree of the bilateral wall thickening. Normal abdominal wall. Normal osseous structures. CT/Abdomen/Pelvis without Cont IMPRESSION: No acute abnormality is seen. Stable findings within the mesentery. Electronically Signed: Goran Lobato MD at 9:23 EST ,
--- NOTE | 2022-01-10 08:53 | EDS_ITS ---
HPI History of Present Illness Chief Complaint: Abd Pain Informant: patient Narrative Narrative: Patient presents with about 24 hours of intermittent shooting right flank pain. He has had this before. He has had multiple evaluations and no one is ever been able to find the cause. He denies any history of kidney stones. Nothing makes it better or worse or brings it on. He is not having much discomfort now. He is eating and drinking and moving bowels normally. He is urinating normally. No fevers chills or sweats. No injury. No radiation down the legs or back. No rashes. He is not having chest pain today. [facility] Medical History HTN (hypertension) Irregular heart beat Home Medications lisinopril 10 mg PO DAILY 01/03/22 [History Last Taken Unknown] Allergy/AdvReac Type Severity Reaction Status Date / Time morphine AdvReac Other Verified 01/10/22 08:27 naproxen AdvReac Nausea Verified 01/10/22 08:27 Surgical History History of dental surgery Social History Smoking Status: Former smoker substance use type: does not use ROS ROS ED Constitutional Constitutional ED: Denies chills or fever(s) ENT ENT ED: Denies rhinorrhea or sore throat Cardiovascular Cardiovascular: Denies chest pain, palpitations or racing heartbeat Respiratory/Chest Respiratory/Chest: Denies cough or dyspnea Gastrointestinal Gastrointestinal: Reports abdominal pain; Denies constipation, diarrhea, melena, nausea or vomiting Genitourinary Genitourinary ED: Denies dysuria, hematuria or urinary frequency Musculoskeletal Musculoskeletal: Reports other Details: Right flank pain but not actually back pain ; Denies myalgias Integumentary Denies rash Neurologic Neurologic: Denies headache(s), paresthesias or weakness Endocrine Endocrinology: Denies polydipsia or polyuria Allergic/Immunologic Allergic/Immunologic ED: Denies mouth swelling or urticaria EXAM Physical Exam Const Vital Signs: 01/10/22 08:28 Temperature 97.4 F L Temperature Source Oral Pulse Rate 96 Respiratory Rate 17 Blood Pressure 140/87 H Blood Pressure Mean 104 Pulse Ox 100 Oxygen Delivery Method Room Air Positive well nourished and well developed General Appearance ED: well developed and NAD; Negative for cyanotic or diaphoretic HEENT Reports moist mucous membranes Negative for trauma Eyes General Eye ED: Negative for pale conjunctiva or scleral icterus Neck no JVD Chest Wall inspection of chest normal Resp normal respiratory effort and clear to auscultation bilaterally Effort and Inspection: Negative for pain with movement Auscultation: Negative for rales, rhonchi or wheezes Cardio regular rate and regular rhythm GI normal to inspection, nondistended, normoactive bowel sounds, non-tender and no n-distended GI Narrative: Despite his intermittent discomfort, his exam is actually benign. There is no tenderness and pressing on his abdomen or right flank does not bring on the symptoms. He also has no CVA tenderness. There is no right upper quadrant tenderness or Da Silva sign. I see no rashes at all. Palpation: soft Back/Spine no CVA tenderness Extremity General Extremety ED: Negative for edema or tenderness General Extremity: Negative for edema Neuro Sensorium / Orientation: alert Psych mental status grossly normal Skin no rashes or lesions noted MDM MDM MDM Narrative Medical decision making narrative: Patient's urinalysis is normal. No sign of infection or blood. CT scan shows no acute process. There are some stable changes in the mesentery and base of the lungs. There is some mild increased stool but no sign of obstruction. Patient does admit that his stools have been harder a little bit harder to get out for the last few days. He has not had a bowel movement this morning but he did have one yesterday morning. We discussed increasing fluids, possible apple juice, increase activity, and if not improving he can try some MiraLAX. If he develops more pain, vomiting, blood in the stool, fevers he should return. Lab Data Attestation: I reviewed the patient's lab results. Labs: Laboratory Results - last 24 hr 01/10/22 09:00 Urine Color Yellow Urine Clarity Clear Urine pH 6.0 Ur Specific [place] 1.010 Urine Protein Negative Urine Glucose (UA) Normal Urine Ketones Negative Urine Occult Blood Negative Urine Nitrite Negative Urine Bilirubin Negative Urine Urobilinogen Normal Ur Leukocyte Esterase Negative Urine RBC 0 SEEN Urine WBC 0 SEEN Ur Squamous Epith Cells 0 SEEN Urine Bacteria 0 SEEN Urine Mucus 0 SEEN Radiography Diagnostic Testing: Clinical Impression(s) from Imaging Studies Abdomen/Pelvis CT 01/10/22 08:48 IMPRESSION: No acute abnormality is seen. Stable findings within the mesentery. Electronically Signed: Goran Lobato MD at 9:23 EST , Discharge Plan Triage Chief Complaint: Abd Pain ED Provider: Jeison Lennon Dx/Rx/DC Orders Clinical Impression: Abdominal pain, Constipation Instructions: ED Constipation (Adult), ED Abdominal Pain Unkn Cause Male... Prescriptions: No Action lisinopril 10 mg tablet 10 mg PO DAILY RF: 0 Primary Care Provider: Guilherme Garces NP Referrals: Guilherme Garces NP, HOME THEATRE TECHNICIAN-C [Primary Care Provider] - 3-5 Days if not improving Disposition Disposition: Home, Self Care
[2022-01-10 09:03] LABS: Bacteria 0 SEEN /hpf (None Seen); Mucous, Urine 0 SEEN /hpf (<or=2+); Red Blood Cells-Urine 0 SEEN /hpf (0-5); Squamous Epithelial Cells - UA 0 SEEN /hpf (0-5); White Blood Cells 0 SEEN /hpf (0-5)
[2022-01-10 09:06] LABS: Color, Urine Yellow (Yellow); Glucose, Dipstick Normal (Normal); Ketone-Dipstick Negative (Negative); Leukocyte Esterase-Dipstick Negative /ul (Negative); Nitrite-Dipstick Negative (Negative); Occult Blood-Urine Negative /ul (Negative); Protein-Dipstick Negative (Negative); Urine Bilirubin Dipstick Negative (Negative); Urine Clarity Clear (Clear); Urine Urobilinogen Normal (Normal)
[2022-01-10 09:50] VITALS: BP 129/69; PULSE 82; RESP 18
== END 2022-01-10 09:51 | disposition home or self-care (01) ==
PROVIDERS: Emergency Provider Emergency Medicine; PCP Nurse Practitioner Family; Visit Provider Emergency Medicine
DX: R10.9 Unspecified abdominal pain (principal); K59.00 Constipation, unspecified; I10 Essential (primary) hypertension; Z87.891 Personal history of nicotine dependence
CPT/HCPCS: 74176; 81001; 99282

== ENCOUNTER 2022-01-27 14:12 | Emergency (ER) | payer SELFPAY ==
[2022-01-27 14:12] VITALS: BP 156/90; PULSE 106; RESP 16; TEMP 36.7; O2SAT 100; BMI 36.2
--- NOTE | 2022-01-27 14:41 | EKG12_ITS ---
Test Reason : DIZZINESS Blood Pressure : / mmHG Vent. Rate : 080 BPM Atrial Rate : 080 BPM P-R Int : 140 ms QRS Dur : 094 ms QT Int : 362 ms P-R-T Axes : 047 050 043 degrees QTc Int : 417 ms Normal sinus rhythm Normal ECG Confirmed by MAXIM PEÑALOZA, JORDI ([id number]), online editor JOHN MCGINNIS ([id number]) on 01/29/2022 10:45:39 AM Referred By: MICHELLE Confirmed By:JORDI PAN MD
--- NOTE | 2022-01-27 14:41 | CT_ITS ---
STUDY: CT BRAIN WITHOUT CONTRAST REASON FOR EXAM: Male, 41 years old. Dizziness RADIATION DOSAGE (If Supplied By Facility): CTDIvol = ( 44.99 ) mGy, DLP = ( 829.85 ) mGycm TECHNIQUE: Transaxial CT imaging of the brain was performed without administration of intravenous contrast material. Individualized dose optimization techniques were used for this CT. COMPARISON: 07/10/2020 FINDINGS: Normal soft tissue structures. Normal calvarium. Normal size ventricles and extra-axial spaces for the patient''s age. Nonspecific low-attenuation foci in the periventricular and subcortical white matter may relate with mild chronic small vessel disease Calcified lesion along the right frontotemporal scalp possibly sebaceous cysts There is no intracranial hemorrhage. There are no findings of an acute ischemic infarction. Normal visualized paranasal sinuses. CT/Brain/Head without Contrast IMPRESSION: No acute intracranial hemorrhage, mass effect or acute large territory infarcts. Electronically Signed: Howie Green, at 15:22 EST ,
--- NOTE | 2022-01-27 14:41 | EX.ED.DYSGE1 ---
HPI History of Present Illness Chief Complaint: Dizziness Informant: patient Onset/Context/Timing Onset: Today Narrative Narrative: Patient reports having a GI bug yesterday with vomiting and diarrhea. Today at work he hit the left side of his head. Since that time he has felt a pressure sensation in his head and feels lightheaded and dizzy when he stands suddenly. He also reports palpitations. He reportedly has been seen by his PCP for this in the past. He believes he is being referred to cardiology for follow-up. He had some mild palpitations today. [facility] Medical History HTN (hypertension) Irregular heart beat Home Medications lisinopril 10 mg PO DAILY 01/03/22 [History Last Taken Unknown] Allergy/AdvReac Type Severity Reaction Status Date / Time morphine AdvReac Other Verified 01/27/22 14:12 naproxen AdvReac Nausea Verified 01/27/22 14:12 Surgical History History of dental surgery Social History Smoking Status: Current every day smoker tobacco type: cigarettes substance use type: does not use ROS ROS ED Constitutional Constitutional ED: Denies chills or fever(s) Eyes Eyes: Denies blurry vision or change in vision ENT ENT ED: Denies sore throat Cardiovascular Cardiovascular: Reports palpitations; Denies chest pain Respiratory/Chest Respiratory/Chest: Denies cough or dyspnea Gastrointestinal Gastrointestinal: Denies abdominal pain, nausea or vomiting Genitourinary Genitourinary ED: Denies dysuria Musculoskeletal Musculoskeletal: Denies back pain or neck pain Integumentary Denies rash Neurologic Neurologic: Denies headache(s) or weakness Allergic/Immunologic Allergic/Immunologic ED: Denies urticaria EXAM Physical Exam Const Vital Signs: 01/27/22 14:12 01/27/22 14:25 Temperature 98.1 F Temperature Source Temporal Pulse Rate 106 H Respiratory Rate 16 Respiratory Pattern Normal Blood Pressure 156/90 H Blood Pressure Mean 112 Pulse Ox 100 Oxygen Delivery Method Room Air Positive well nourished and well developed General Appearance ED: well developed HEENT Reports normocephalic and head/scalp atraumatic Eyes PERRL and EOMs intact bilaterally Neck supple Neck Narrative: No C-spine tenderness. Chest Wall inspection of chest normal and palpation of chest normal Resp normal respiratory effort and clear to auscultation bilaterally Cardio regular rate and regular rhythm GI normal to inspection, nondistended, normoactive bowel sounds Palpation: soft Extremity normal to inspection Neuro oriented x3 and no sensory deficits noted Sensorium / Orientation: alert Motor Exam: strength 5/5 throughout Psych mental status grossly normal Skin no rashes or lesions noted MDM MDM MDM Narrative Medical decision making narrative: Patient placed on plan coordinator. EKG, lab work, head CT obtained. Lab Data Attestation: I reviewed the patient's lab results. Labs: Laboratory Results - last 24 hr 01/27/22 01/27/22 14:50 14:50 WBC 8.6 RBC 4.51 L Hgb 15.1 Hct 42.1 MCV 93.3 MCH 33.5 H MCHC 35.9 RDW Std Deviation 42.5 RDW Coeff of Lior 12.4 Plt Count 313 MPV 8.6 Immature Gran % (Auto) 0.200 Neut % (Auto) 64.7 Lymph % (Auto) 23.4 [place] % (Auto) 10.4 H Eos % (Auto) 0.7 Baso % (Auto) 0.6 Absolute Neuts (auto) 5.6 Absolute Lymphs (auto) 2.02 Nucleated RBC % 0 Sodium 138 Potassium 3.6 Chloride 106 Carbon Dioxide 28.0 Anion Gap 4 L BUN 9 Creatinine 1.06 Estim Creat Clear Calc 70.83 Est GFR (MDRD) Af Amer 99 Est GFR (MDRD) Non-Af 82 BUN/Creatinine Ratio 8.5 L Glucose 92 Calcium 9.2 Radiography Diagnostic Testing: Clinical Impression(s) from Imaging Studies Brain CT 01/27/22 14:41 IMPRESSION: No acute intracranial hemorrhage, mass effect or acute large territory infarcts. Electronically Signed: Howie Green, at 15:22 EST , EKG Initial EKG: Attestation: I personally reviewed and interpreted this EKG as follows: Interpretation: Sinus Rhythm (Sinus 80 with no acute ischemia.) Treatment and Re-Evaluation Comments:: Repeat evaluation patient resting comfortably. He was given IV fluids and feels improved at this time. Lab work and CT findings reviewed with him. Patient be discharged home to continue supportive care. Discharge Plan Triage Chief Complaint: Dizziness ED Provider: Ruth Ivey Dx/Rx/DC Orders Clinical Impression: Closed head injury, Palpitations, Dizziness Instructions: ED Head Injury (Adult), ED Palpitations Prescriptions: No Action lisinopril 10 mg tablet 10 mg PO DAILY RF: 0 Primary Care Provider: Guilherme Garces NP Referrals: Guilherme Garces NP, EDUCATIONAL ADMINISTRATION TEACHER-C [Primary Care Provider] - 1 Week if not improving Disposition Disposition: Home, Self Care Discharge Date/Time: 01/27/22 15:56
[2022-01-27] MEDS: 0.9% Normal Saline 1,000 ML 1000 ML IV (14:52)
[2022-01-27 14:58] LABS: Absolute Lymphocyte Count 2.02 X10^3/uL (0.83-4.51); Absolute Neutrophil Count 5.6 X10^3/uL (2.0-7.7); Basophil# 0.05 X10^3/uL; Basophil% 0.6 % (0-1); Eosinophil# 0.06 X10^3/uL; Eosinophils% 0.7 % (0-5); Hematocrit 42.1 % (40-54); Hemoglobin 15.1 g/dL (13.0-16.5); Lymphocyte # 2.02 X10^3/ul (0.83-4.51); Lymphocyte % 23.4 % (19-41); Mean Corp Hgb Conc 35.9 g/dL (32-36); Mean Corpuscular Hgb 33.5 pg (27.0-32.0); Mean Corpuscular Volume 93.3 fL (80-94); Mean Platelet Vol. 8.6 fl (6.2-12.0); Monocyte% 10.4 % (0-10); NRBC Flagged by Analyzer 0 % (0-5); Neutrophil # 5.59 X10^3/uL (2.7-7.7); Neutrophil % 64.7 % (47-70); Platelet Count 313 K/mm3 (150-450); RBC Distribution Width CV 12.4 % (11.6-14.6); RBC Distribution Width SD 42.5 fl (35.1-43.9); Red Blood Count 4.51 M/mm3 (4.6-6.2); White Blood Count 8.6 K/mm3 (4.4-11.0)
[2022-01-27 15:11] LABS: Anion Gap 4 (5-15); BUN 9 mg/dL (7-18); BUN/Creat Ratio 8.5 RATIO (10-20); Calcium,Total 9.2 mg/dL (8.5-10.1); Chloride 106 mmol/L (98-107); Creatinine, Serum 1.06 mg/dL (0.70-1.30); EST Glomerular Filtration Rate 82 mL/min (>60); Est Glom Filt Rate - Afr Amer 99 mL/min (>60); Estimated Creatinine Clearance 70.83 ml/min; Glucose 92 mg/dL (74-106); Potassium 3.6 mmol/L (3.5-5.1); Sodium Level 138 mmol/L (136-145)
== END 2022-01-27 15:56 | disposition home or self-care (01) ==
PROVIDERS: Emergency Provider Emergency Medicine; PCP Nurse Practitioner Family; Visit Provider Emergency Medicine
DX: S09.90XA Unspecified injury of head, initial encounter (principal); W22.09XA Striking against other stationary object, initial encounter; R00.2 Palpitations; I10 Essential (primary) hypertension; R42 Dizziness and giddiness; F17.210 Nicotine dependence, cigarettes, uncomplicated; Y92.89 Other specified places as the place of occurrence of the external cause; Y99.0 Civilian activity done for income or pay
CPT/HCPCS: 70450; 80048; 85025; 93005; 99284; J7030; A4216

== ENCOUNTER 2022-02-15 02:18 | Emergency (ER) | payer SELFPAY ==
[2022-02-15 02:18] VITALS: BP 130/76; PULSE 114; RESP 15; TEMP 37.2; O2SAT 97; BMI 36.6
--- NOTE | 2022-02-15 02:46 | EKG12_ITS ---
Test Reason : SOB Blood Pressure : / mmHG Vent. Rate : 101 BPM Atrial Rate : 101 BPM P-R Int : 126 ms QRS Dur : 086 ms QT Int : 334 ms P-R-T Axes : 067 073 042 degrees QTc Int : 433 ms Sinus tachycardia Otherwise normal ECG Confirmed by MAXIM PEÑALOZA, JORDI ([id number]), design editor JOHN MCGINNIS ([id number]) on 02/15/2022 11:04:17 AM Referred By: LÓPEZ Confirmed By:JORDI PAN MD
--- NOTE | 2022-02-15 02:46 | RAD_ITS ---
STUDY: X-RAY CHEST REASON FOR EXAM: Male, 41 years old. chest pain TECHNIQUE: Single AP portable view of the chest. COMPARISON: None. FINDINGS: The lungs are clear and expanded. There is no demonstrated pleural abnormality. Normal size heart. Normal mediastinum and rachel. Normal visualized pulmonary arteries. Normal visualized aortic arch and descending thoracic aorta. Normal visualized thoracic spine. Normal visualized ribs, clavicles, and shoulders. There is no demonstrated abnormality of the visualized soft tissue structures of the upper abdomen. RAD/Chest 1 View (Portable) IMPRESSION: Normal x-ray examination of the chest. Electronically Signed: Ai Coleman MD at 3:04 EDT ,
[2022-02-15 02:49] VITALS: O2SAT 97
[2022-02-15 02:56] LABS: Absolute Lymphocyte Count 1.98 X10^3/uL (0.83-4.51); Absolute Neutrophil Count 8.7 X10^3/uL (2.0-7.7); Basophil# 0.04 X10^3/uL; Basophil% 0.3 % (0-1); Eosinophil# 0.02 X10^3/uL; Eosinophils% 0.2 % (0-5); Hematocrit 40.6 % (40-54); Hemoglobin 14.3 g/dL (13.0-16.5); Lymphocyte # 1.98 X10^3/ul (0.83-4.51); Lymphocyte % 15.8 % (19-41); Mean Corp Hgb Conc 35.2 g/dL (32-36); Mean Corpuscular Hgb 32.7 pg (27.0-32.0); Mean Corpuscular Volume 92.9 fL (80-94); Monocyte# 1.76 X10^3/uL; NRBC Flagged by Analyzer 0 % (0-5); Neutrophil # 8.73 X10^3/uL (2.7-7.7); Neutrophil % 69.5 % (47-70); POSITIVE DIFFERENTIAL YES; Platelet Count 254 K/mm3 (150-450); RBC Distribution Width CV 11.9 % (11.6-14.6); RBC Distribution Width SD 40.8 fl (35.1-43.9); Red Blood Count 4.37 M/mm3 (4.6-6.2); White Blood Count 12.6 K/mm3 (4.4-11.0)
--- NOTE | 2022-02-15 02:59 | EDS_ITS ---
HPI History of Present Illness Chief Complaint: Shortness of Breath Informant: patient Narrative Narrative: Patient is a 41-year-old male with history of hypertension, hyperlipidemia and pleurisy presenting with chest discomfort. Patient states he developed chest discomfort around 6 or 7 PM. He states when he laying down trying to sleep he felt like he heard crackles in his lung. He notes he had a mild cough. He did have a headache earlier today but that has since resolved. He had a sore throat for the past 3 to 4 days and was concerned that he was coming down with an illness. He has had temperature up to 100.1 ?F. Did take a negative Covid test 2 days ago. Denies any known sick contacts. Denies any leg swelling, history of DVT or PE. Notes he is currently being worked up by his primary care doctor for palpitations and tachycardia. He has an echocardiogram scheduled for next Saturday, 5 days from now. [facility] Medical History HTN (hypertension) Irregular heart beat Home Medications lisinopril 10 mg PO DAILY 01/03/22 [History Last Taken Unknown] azithromycin 250 mg PO DAILY 4 Days #4 tab 02/15/22 [Rx Last Taken Unknown] Allergy/AdvReac Type Severity Reaction Status Date / Time morphine AdvReac Other Verified 02/15/22 02:21 naproxen AdvReac Nausea Verified 02/15/22 02:21 Surgical History History of dental surgery Social History Smoking Status: Former smoker substance use type: does not use ROS ROS ED Constitutional Constitutional ED: Reports chills and fever(s) Eyes Eyes: Denies blurry vision or change in vision ENT ENT ED: Reports sore throat; Denies ear pain or rhinorrhea Cardiovascular Cardiovascular: Reports chest pain and palpitations; Denies orthopnea Respiratory/Chest Respiratory/Chest: Reports cough and dyspnea; Denies orthopnea or sputum Gastrointestinal Gastrointestinal: Denies abdominal pain, nausea or vomiting Genitourinary Genitourinary ED: Denies dysuria or hematuria Musculoskeletal Musculoskeletal: Denies arthralgias or myalgias Integumentary Denies rash Neurologic Neurologic: Reports headache(s); Denies weakness Psychiatric Psychiatric: Denies anxiety or depression EXAM Physical Exam Const Vital Signs: 02/15/22 02:18 02/15/22 02:49 02/15/22 03:30 Temperature 98.9 F 100.5 F H Temperature Source Oral Oral Pulse Rate 114 H 86 Respiratory Rate 15 18 Respiratory Effort Respiratory Pattern Blood Pressure 130/76 H 94/55 L Blood Pressure Mean 94 68 Pulse Ox 97 97 99 Oxygen Delivery Method Room Air Room Air Room Air 02/15/22 03:43 02/15/22 04:30 02/15/22 05:50 Temperature 98.9 F Temperature Source Oral Pulse Rate 86 Respiratory Rate 18 Respiratory Effort Short of Breath Respiratory Pattern Normal Blood Pressure 113/58 L Blood Pressure Mean 76 Pulse Ox 99 100 Oxygen Delivery Method Room Air Positive well nourished, well developed and obese General Appearance ED: well developed Nutritional Appearance: obese HEENT Reports moist mucous membranes atraumatic; Negative for trauma or tenderness Eyes PERRL and EOMs intact bilaterally Neck supple, no meningeal signs and no JVD Resp normal respiratory effort and clear to auscultation bilaterally Cardio regular rhythm and no murmurs Rate: tachycardic GI non-tender and non-distended Palpation: soft Back/Spine normal to inspection Extremity normal to inspection General Extremety ED: Negative for edema or tenderness General Extremity: Negative for edema Neuro oriented x3 Sensorium / Orientation: alert Motor Exam: Negative for general weakness Psych mental status grossly normal Skin Lesions: no lesions Rashes: no rashes MDM MDM MDM Narrative Medical decision making narrative: Patient evaluated for chest discomfort as well as upper respiratory symptoms including cough and sore throat. Patient appears nontoxic. Vital signs are significant for tachycardia which he states he has a history of. Cardiopulmonary work-up initiated. Patient is low risk factor for PE is his tachycardia. He is otherwise low risk so D-dimer was ordered. This is the 0.35. I think a CTA is indicated. He does have a mild leukocytosis of 12.6 with monocyte predominance. Sodium is 129, glucose is 122 and calcium is 8.3. Patient is given IV fluids. He states he has been drinking a lot of water the last day which could have caused the hyponatremia. Differential does also include Legionella given respiratory symptoms, fever, leukocytosis and hyponatremia. Patient did spike a fever in the ER and is given Tylenol. On repeat evaluation he states he is feeling better and his tachycardia has resolved. Patient be covered with azithromycin for community- acquired pneumonia. Chest x-ray interpreted by myself as well as radiology does not show any acute infiltrate however given his symptoms and presentation will cover empirically despite this. Is given a work note for today per his request. Is counseled return precautions. Encouraged follow-up with primary care doctor. Lab Data Attestation: I reviewed the patient's lab results. Labs: Laboratory Results - last 24 hr 02/15/22 02/15/22 02/15/22 02:50 02:50 02:50 WBC 12.6 H RBC 4.37 L Hgb 14.3 Hct 40.6 MCV 92.9 MCH 32.7 H MCHC 35.2 RDW Std Deviation 40.8 RDW Coeff of Lior 11.9 Plt Count 254 MPV 9.0 Immature Gran % (Auto) 0.200 Neut % (Auto) 69.5 Lymph % (Auto) 15.8 L [place] % (Auto) 14.0 H Eos % (Auto) 0.2 Baso % (Auto) 0.3 Absolute Neuts (auto) 8.7 H Absolute Lymphs (auto) 1.98 Nucleated RBC % 0 Diff Path Review May foll D-Dimer Quant (PE/DVT) 0.35 Sodium 129 L Potassium 3.9 Chloride 98 Carbon Dioxide 23.0 Anion Gap 8 BUN 14 Creatinine 1.09 Estim Creat Clear Calc 68.88 Est GFR (MDRD) Af Amer 96 Est GFR (MDRD) Non-Af 79 BUN/Creatinine Ratio 12.8 Glucose 122 H Calcium 8.3 L Troponin I High Sens 3 TSH 2.99 02/15/22 04:50 WBC RBC Hgb Hct MCV MCH MCHC RDW Std Deviation RDW Coeff of Lior Plt Count MPV Immature Gran % (Auto) Neut % (Auto) Lymph % (Auto) [place] % (Auto) Eos % (Auto) Baso % (Auto) Absolute Neuts (auto) Absolute Lymphs (auto) Nucleated RBC % Diff Path Review D-Dimer Quant (PE/DVT) Sodium Potassium Chloride Carbon Dioxide Anion Gap BUN Creatinine Estim Creat Clear Calc Est GFR (MDRD) Af Amer Est GFR (MDRD) Non-Af BUN/Creatinine Ratio Glucose Calcium Troponin I High Sens 3 TSH Radiography Chest X-Ray - ED: 1 View, Read by ED Physician, Read by Radiologist and No Acute Disease Diagnostic Testing: Clinical Impression(s) from Imaging Studies Chest X-Ray 02/15/22 02:46 IMPRESSION: Normal x-ray examination of the chest. Electronically Signed: Ai Coleman MD at 3:04 EDT Reading Location ID and State: [facility] / [place] Tel , Service support , Rhythm Strip Rhythm Strip: Sinus Tach Rate: 101 Ectopy: None EKG Initial EKG: Attestation: I personally reviewed and interpreted this EKG as follows: Interpretation: Sinus Tachycardia Comments: Sinus tachycardia rate of 101 Normal axis Normal intervals Normal ST segments Discharge Plan Triage Chief Complaint: Shortness of Breath ED Provider: Fior Bhakta Dx/Rx/DC Orders Clinical Impression: Acute febrile illness, Cough, Chest discomfort, Acute hyponatremia Instructions: ED Hyponatremia, ED Pneumonia (Adult) Prescriptions: New azithromycin 250 mg tablet 250 mg PO DAILY 4 Days Qty: 4 RF: 0 No Action lisinopril 10 mg tablet 10 mg PO DAILY RF: 0 Primary Care Provider: Guilherme Garces NP Referrals: Guilherme Garces NP, DOG BOARDER-C [Primary Care Provider] - Disposition Disposition: Home, Self Care Discharge Date/Time: 02/15/22 05:51
[2022-02-15 03:04] LABS: Differential Indicated SCAN CRITERIA MET
[2022-02-15 03:06] LABS: D-Dimer Quantitative (DVT/PE) 0.35 FEU/ug/m (0.27-0.49)
[2022-02-15 03:20] LABS: Anion Gap 8 (5-15); BUN 14 mg/dL (7-18); BUN/Creat Ratio 12.8 RATIO (10-20); Calcium,Total 8.3 mg/dL (8.5-10.1); Chloride 98 mmol/L (98-107); Creatinine, Serum 1.09 mg/dL (0.70-1.30); EST Glomerular Filtration Rate 79 mL/min (>60); Est Glom Filt Rate - Afr Amer 96 mL/min (>60); Estimated Creatinine Clearance 68.88 ml/min; Glucose 122 mg/dL (74-106); Potassium 3.9 mmol/L (3.5-5.1); Sodium Level 129 mmol/L (136-145); Thyroid Stim Hormone (TSH) 2.99 uIU/mL (0.358-3.74); Troponin-I HS 3 pg/mL (3.0-78.0)
[2022-02-15 03:30] VITALS: BP 94/55; PULSE 86; RESP 18; TEMP 38.1; O2SAT 99
[2022-02-15] MEDS: 0.9% Normal Saline 1,000 ML 999 ML IV (03:35)
[2022-02-15 03:43] VITALS: O2SAT 100
[2022-02-15] MEDS: Acetaminophen 325 MG Tablet 650 MG PO (03:55)
[2022-02-15 04:30] VITALS: BP 113/58; PULSE 86; RESP 18; TEMP 37.2; O2SAT 99
[2022-02-15 05:16] LABS: Troponin-I HS 3 pg/mL (3.0-78.0)
[2022-02-15] MEDS: Azithromycin 250 MG Tablet 500 MG PO (05:47)
[2022-02-15 05:50] VITALS: O2SAT 100
[2022-02-16 11:46] LABS: Pathologist Review Reviewed
== END 2022-02-15 05:51 | disposition home or self-care (01) ==
PROVIDERS: Emergency Provider Emergency Medicine; PCP Nurse Practitioner Family; Visit Provider Emergency Medicine
DX: J18.9 Pneumonia, unspecified organism (principal); E78.5 Hyperlipidemia, unspecified; I10 Essential (primary) hypertension; R00.2 Palpitations; E87.1 Hypo-osmolality and hyponatremia; Z79.899 Other long term (current) drug therapy; Z87.891 Personal history of nicotine dependence
CPT/HCPCS: 71045; 80048; 84443; 84484; 85025; 85379; 87428; 93005; 96360; 96361; 99285; J7030; A4216

== ENCOUNTER 2022-02-16 10:36 | Emergency (ER) | payer SELFPAY ==
[2022-02-16 10:37] VITALS: BP 129/80; PULSE 104; RESP 7; TEMP 36.1; O2SAT 100; BMI 35.7
--- NOTE | 2022-02-16 11:00 | EDS_ITS ---
HPI History of Present Illness Chief Complaint: Back Informant: patient Onset/Context/Timing Onset: Yesterday Context: Gradual Onset Timing: Continuous Quality: Sharp Location: Thoracic Worsened by: improves with Movement Relieved by: Nothing Associated Symptoms Associated Symptoms: Negative for Numbness, Tingling, Radiation to Right Leg, Radiation to Left Leg, Fever, Abdominal Pain, Dysuria, Unable to Ambulate, Unable to Transfer, Urinary Retention, Urinary Incontinence, Constipation and Fecal Incontinence Narrative Narrative: Patient presents with back pain that began yesterday. Patient was seen here yesterday and was diagnosed with clinical pneumonia. Patient started Zithromax yesterday. Patient took another dose again today. Patient states his pain is over the lower thoracic area. Patient describes his pain is sharp and stabbing. Patient states it is worse with movement. Patient denies any radiation of the pain. Patient denies any paresthesias or weakness. Patient denies any bowel or bladder changes. [facility] Medical History HTN (hypertension) Irregular heart beat Home Medications lisinopril 10 mg PO DAILY 01/03/22 [History Last Taken Unknown] azithromycin 250 mg PO DAILY 4 Days #4 tab 02/15/22 [Rx Last Taken Unknown] Allergy/AdvReac Type Severity Reaction Status Date / Time morphine AdvReac Other Verified 02/16/22 10:36 naproxen AdvReac Nausea Verified 02/16/22 10:36 Surgical History History of dental surgery Social History Smoking Status: Former smoker substance use type: does not use ROS ROS ED Constitutional Constitutional ED: Reports chills and subjective; Denies fever(s) Eyes Eyes: Denies blurry vision or change in vision ENT ENT ED: Reports sore throat; Denies rhinorrhea Cardiovascular Cardiovascular: Denies chest pain or palpitations Respiratory/Chest Respiratory/Chest: Denies cough or dyspnea Gastrointestinal Gastrointestinal: Reports nausea; Denies vomiting Genitourinary Genitourinary ED: Denies dysuria or hematuria Musculoskeletal Musculoskeletal: Reports back pain; Denies neck pain Integumentary Denies abscess or rash Neurologic Neurologic: Denies headache(s) or weakness Allergic/Immunologic Allergic/Immunologic ED: Denies mouth swelling or urticaria EXAM Physical Exam Const Vital Signs: 02/16/22 10:37 Temperature 96.9 F L Temperature Source Temporal Pulse Rate 104 H Respiratory Rate 7 L Blood Pressure 129/80 H Blood Pressure Mean 96 Pulse Ox 100 Oxygen Delivery Method Room Air Positive well nourished and well developed General Appearance ED: well developed and NAD HEENT Reports moist mucous membranes Neck supple and no JVD Resp normal respiratory effort and clear to auscultation bilaterally Cardio regular rate and regular rhythm GI normal to inspection, nondistended, normoactive bowel sounds, soft to palpation and non-tender Back/Spine Back/Spine Narrative: There is tenderness over the lower thoracic paraspinal muscles bilaterally. There is no bony crepitance or step-off. Range of motion was slightly limited in all motions of the thoracic spine secondary to pain. Strength is 5/5 bilaterally in the upper and lower extremities. There are no sensory deficits noted. Patient was able to ambulate without difficulty. Thoracic Spine / Upper Back: paraspinal muscle tenderness bilateral Lumbar Spine / Lower Back: ROM limited and straight leg raise negative bilaterally Extremity normal to inspection Neuro oriented x3 and no sensory deficits noted Sensorium / Orientation: alert Motor Exam: strength 5/5 throughout Psych mental status grossly normal MDM MDM MDM Narrative Medical decision making narrative: X-rays of the thoracic spine were obtained. There are 3 views. On my interpretation, there is no acute fracture or spondylolisthesis. Radiologist also interpreted the x-rays and noted a mild levoscoliosis of the lower thoracic spine. There are no acute abnormalities. Urinalysis does not show any evidence of urinary tract infection. Patient was advised that this is most likely a muscular strain. Patient was instructed to follow-up with his primary care physician in 5 to 7 days. Patient was given a note for work to limit his heavy lifting and bending. Patient was instructed to return if worse in any way. Patient understood and was agreeable with the plan. All questions were answered. Lab Data Attestation: I reviewed the patient's lab results. Labs: Laboratory Results - last 24 hr 02/16/22 11:10 Urine Color Yellow Urine Clarity Clear Urine pH 6.0 Ur Specific Ellis 1.015 Urine Protein Negative Urine Glucose (UA) Normal Urine Ketones Negative Urine Occult Blood Negative Urine Nitrite Negative Urine Bilirubin Negative Urine Urobilinogen Normal Ur Leukocyte Esterase Negative Urine RBC 0 SEEN Urine WBC 0 SEEN Ur Squamous Epith Cells 0 SEEN Urine Bacteria 0 SEEN Urine Mucus 0 SEEN Radiography X-Ray: T-Spine, Read by ED Physician, Read by Radiologist, No Fracture and Normal Bony Alignment Diagnostic Testing: Clinical Impression(s) from Imaging Studies Thoracic Spine X-Ray 02/16/22 11:04 IMPRESSION: Mild levoscoliosis of the lower thoracic spine Electronically Signed: Ronnie Harris MD at 11:51 EDT , Discharge Plan Triage Chief Complaint: Back ED Provider: Jean Kirkpatrick Dx/Rx/DC Orders Clinical Impression: Acute thoracic myofascial strain Instructions: ED Back Sprain/Strain Prescriptions: No Action lisinopril 10 mg tablet 10 mg PO DAILY RF: 0 azithromycin 250 mg tablet 250 mg PO DAILY 4 Days Qty: 4 RF: 0 Stand Alone Forms: Work Status Form Primary Care Provider: Guilherme Garces NP Referrals: Guilherme Garces NP, AIRCRAFT ORDNANCE TECHNICIAN-C [Primary Care Provider] - 5-7 Days Disposition Disposition: Home, Self Care
--- NOTE | 2022-02-16 11:04 | RAD_ITS ---
STUDY: X-RAY - THORACIC SPINE REASON FOR EXAM: Male, 41 years old. Injury/Pain TECHNIQUE: 3 view(s) of the thoracic spine were obtained. COMPARISON: None. FINDINGS: Normal kyphosis of the thoracic spine. Mild levoscoliosis of the lower thoracic spine. Normal thoracic vertebrae and endplates. Normal disc space heights. The soft tissue structures are unremarkable. RAD/Thoracic Spine 3 Views IMPRESSION: Mild levoscoliosis of the lower thoracic spine Electronically Signed: Ronnie Harris MD at 11:51 EDT ,
[2022-02-16 11:18] LABS: Bacteria 0 SEEN /hpf (None Seen); Mucous, Urine 0 SEEN /hpf (<or=2+); Red Blood Cells-Urine 0 SEEN /hpf (0-5); Squamous Epithelial Cells - UA 0 SEEN /hpf (0-5); White Blood Cells 0 SEEN /hpf (0-5)
[2022-02-16 11:22] LABS: Color, Urine Yellow (Yellow); Glucose, Dipstick Normal (Normal); Ketone-Dipstick Negative (Negative); Leukocyte Esterase-Dipstick Negative /ul (Negative); Nitrite-Dipstick Negative (Negative); Occult Blood-Urine Negative /ul (Negative); Protein-Dipstick Negative (Negative); Specific Gravity, Urine 1.015 (1.002-1.030); Urine Bilirubin Dipstick Negative (Negative); Urine Clarity Clear (Clear); Urine Urobilinogen Normal (Normal)
== END 2022-02-16 13:02 | disposition home or self-care (01) ==
PROVIDERS: Emergency Provider Emergency Medicine; PCP Nurse Practitioner Family; Visit Provider Emergency Medicine
DX: S29.019A Strain of muscle and tendon of unspecified wall of thorax, initial encounter (principal); R15.9 Full incontinence of feces; I10 Essential (primary) hypertension; J18.9 Pneumonia, unspecified organism; Z79.899 Other long term (current) drug therapy; Z87.891 Personal history of nicotine dependence; X58.XXXA Exposure to other specified factors, initial encounter; Y93.9 Activity, unspecified; Y99.9 Unspecified external cause status; Y92.9 Unspecified place or not applicable
CPT/HCPCS: 72072; 81001; 99282

== ENCOUNTER 2022-04-28 04:00 | Emergency (ER) | payer SELFPAY ==
[2022-04-28 04:01] VITALS: BP 155/91; PULSE 83; RESP 20; TEMP 36.4; O2SAT 96; BMI 35.8
--- NOTE | 2022-04-28 04:14 | EKG12_ITS ---
Test Reason : CP Blood Pressure : / mmHG Vent. Rate : 083 BPM Atrial Rate : 083 BPM P-R Int : 128 ms QRS Dur : 088 ms QT Int : 382 ms P-R-T Axes : 061 054 047 degrees QTc Int : 448 ms Normal sinus rhythm with sinus arrhythmia Normal ECG Confirmed by MAXIM PEÑALOZA, JORDI ([id number]), book or script editor JOHN MCGINNIS ([id number]) on 04/30/2022 12:40:37 PM Referred By: BB Confirmed By:JORDI PAN MD
--- NOTE | 2022-04-28 04:19 | ED.VIS.CHEST ---
HPI History of Present Illness Chief Complaint: Chest Pain Informant: patient Onset/Context/Timing Onset: Hours (5-6) Activity at onset: gradual and - Timing: Continuous Quality: Positive for Aching Location: Substernal Current Severity: Mild Maximum Severity: Moderate Worsened By: - (lying supine); Not Worsened By Exertion and Breathing Relieved By: - (sitting up) Associated Symptoms: Positive for Palpitations (feels like heartbeats are stronger/harder, not irreg or fast); Negative for Nausea, Vomiting and Diaphoresis Narrative Narrative: Patient presents with chest discomfort that has been worse when he has been lying supine tonight, making it hard for him to go to sleep. Pain since 10 or 11 PM, presents around 4 AM. Feeling his heart beat hard but not necessarily fast or out of rhythm. He is on lisinopril for blood pressure and no other prescription medications right now. No recent drug use. No recent illness. No leg pain or swelling, recent immobilization, travel, surgery, hospitalization. No prior DVT or PE. No pleuritic symptoms. Patient states he often gets abdominal pain, especially after eating, he had an ultrasound of his gallbladder several months ago that showed sludge but no stones or signs of cholecystitis, he followed up with his surgeon, and is continuing to follow for these issues. He does not have any abdominal pain right now. Prior Similar Symptoms: Yes Recent Illness/Hospitalization: No CVD Risk Factors: Positive for Hypertension; Negative for Diabetes, Hypercholesterolemia and Family History 1' </=55 [facility] Medical History HTN (hypertension) Irregular heart beat Home Medications lisinopril 10 mg PO DAILY 01/03/22 [History Last Taken 04/27/22] pantoprazole [Protonix] 40 mg PO DAILY #30 tab 04/28/22 [Rx Last Taken Unknown] Allergy/AdvReac Type Severity Reaction Status Date / Time morphine AdvReac Other Verified 02/16/22 10:36 naproxen AdvReac Nausea Verified 02/16/22 10:36 Surgical History History of dental surgery Social History Smoking Status: Former smoker substance use type: does not use ROS ROS ED Constitutional Constitutional ED: Denies chills or fever(s) Eyes Eyes: Denies change in vision or diplopia ENT ENT ED: Denies rhinorrhea or sore throat Cardiovascular Cardiovascular: Reports chest pain and pounding heartbeat; Denies irregular heart rhythm or racing heartbeat Respiratory/Chest Respiratory/Chest: Denies cough or dyspnea Gastrointestinal Gastrointestinal: Reports as per HPI and abdominal pain; Denies diarrhea, nausea or vomiting Genitourinary Genitourinary ED: Denies dysuria or hematuria Musculoskeletal Musculoskeletal: Denies back pain or neck pain Integumentary Denies abscess or rash Neurologic Neurologic: Denies headache(s), paresthesias or weakness Psychiatric Psychiatric: Denies anxiety or suicidal thoughts EXAM Physical Exam Const Vital Signs: 04/28/22 04:01 04/28/22 04:04 04/28/22 05:00 Temperature 97.5 F L Temperature Source Temporal Pulse Rate 83 77 Respiratory Rate 20 H 12 Respiratory Effort Normal Non-Labored Blood Pressure 155/91 H 104/62 Blood Pressure Mean 112 76 Pulse Ox 96 99 Oxygen Delivery Method Room Air Room Air Positive well nourished, well developed and obese General Appearance ED: well developed and NAD Nutritional Appearance: obese HEENT Reports moist mucous membranes normocephalic and atraumatic Eyes PERRL and EOMs intact bilaterally Neck full ROM and supple Resp normal respiratory effort and clear to auscultation bilaterally Cardio regular rate, regular rhythm and no murmurs Rate: Negative for tachycardic GI non-tender and non-distended Auscultation: normoactive bowel sounds Palpation: soft Back/Spine no CVA tenderness General Back: other FROM Extremity normal to inspection General Extremety ED: Negative for edema, pulses abnormal or tenderness General Extremity: Negative for edema or pulses abnormal Neuro oriented x3, CN's II-XII intact bilaterally and no sensory deficits noted Sensorium / Orientation: awake and alert Motor Exam: strength 5/5 throughout Skin no rashes or lesions noted and no wounds Heart Score History: Moderately Suspicious ECG: Normal Age: </= 45 years Risk Factors: 1 or 2 Risk Factors Troponin: </= Normal Limit Score: 2 MDM MDM MDM Narrative Medical decision making narrative: Work-up is negative including enzymes. Since he has been having discomfort for 5 or 6 hours we do not need to repeat those emergently at this time. Furthermore, after GI cocktail, his pain is gone. Given his GI issues he has been having, and this I think it is reasonable to start him on a PPI and have him follow-up, he is comfortable with that plan. Lab Data Attestation: I reviewed the patient's lab results. Labs: Laboratory Results - last 24 hr 04/28/22 04/28/22 04:00 04:00 WBC 8.3 RBC 4.74 Hgb 15.0 Hct 44.3 MCV 93.5 MCH 31.6 MCHC 33.9 RDW Std Deviation 41.6 RDW Coeff of Lior 12.0 Plt Count 349 MPV 8.7 Immature Gran % (Auto) 0.100 Neut % (Auto) 39.2 L Lymph % (Auto) 44.1 H [place] % (Auto) 14.0 H Eos % (Auto) 1.9 Baso % (Auto) 0.7 Absolute Neuts (auto) 3.3 Absolute Lymphs (auto) 3.67 Nucleated RBC % 0 Sodium 135 L Potassium 3.6 Chloride 101 Carbon Dioxide 28.0 Anion Gap 6 BUN 14 Creatinine 1.08 Estim Creat Clear Calc 69.51 Est GFR (MDRD) Af Amer 97 Est GFR (MDRD) Non-Af 80 BUN/Creatinine Ratio 13.0 Glucose 112 H Calcium 9.0 Troponin I High Sens 3 Rhythm Strip Rhythm Strip: Sinus Rhythm Rate: 80 Ectopy: None EKG Initial EKG: Attestation: I personally reviewed and interpreted this EKG as follows: Interpretation: Sinus Rhythm and No Acute Injury Pattern Comments: Normal EKG Discharge Plan Triage Chief Complaint: Chest Pain ED Provider: Rohit Bryant Dx/Rx/DC Orders Clinical Impression: Chest pain, Intermittent upper abdominal pain Instructions: ED Chest Pain, Noncardiac Prescriptions: New pantoprazole [Protonix] 40 mg tablet,delayed release (DR/EC) 40 mg PO DAILY Qty: 30 RF: 0 No Action lisinopril 10 mg tablet 10 mg PO DAILY RF: 0 Primary Care Provider: Guilherme Garces NP Referrals: Guilherme Garces NP, MEDICARE COORDINATOR-C [Primary Care Provider] - 1 Week Disposition Disposition: Home, Self Care
[2022-04-28] MEDS: Mag Hydrox/Al Hydrox/Simeth 30 ML UDC PO (04:21)
[2022-04-28 04:22] LABS: Absolute Lymphocyte Count 3.67 X10^3/uL (0.83-4.51); Absolute Neutrophil Count 3.3 X10^3/uL (2.0-7.7); Basophil# 0.06 X10^3/uL; Basophil% 0.7 % (0-1); Eosinophil# 0.16 X10^3/uL; Eosinophils% 1.9 % (0-5); Hematocrit 44.3 % (40-54); Lymphocyte # 3.67 X10^3/ul (0.83-4.51); Lymphocyte % 44.1 % (19-41); Mean Corp Hgb Conc 33.9 g/dL (32-36); Mean Corpuscular Hgb 31.6 pg (27.0-32.0); Mean Corpuscular Volume 93.5 fL (80-94); Mean Platelet Vol. 8.7 fl (6.2-12.0); Monocyte# 1.17 X10^3/uL; NRBC Flagged by Analyzer 0 % (0-5); Neutrophil # 3.26 X10^3/uL (2.7-7.7); Neutrophil % 39.2 % (47-70); Platelet Count 349 K/mm3 (150-450); RBC Distribution Width SD 41.6 fl (35.1-43.9); Red Blood Count 4.74 M/mm3 (4.6-6.2); White Blood Count 8.3 K/mm3 (4.4-11.0)
[2022-04-28 04:44] LABS: Anion Gap 6 (5-15); BUN 14 mg/dL (7-18); Chloride 101 mmol/L (98-107); Creatinine, Serum 1.08 mg/dL (0.70-1.30); EST Glomerular Filtration Rate 80 mL/min (>60); Est Glom Filt Rate - Afr Amer 97 mL/min (>60); Estimated Creatinine Clearance 69.51 ml/min; Glucose 112 mg/dL (74-106); Potassium 3.6 mmol/L (3.5-5.1); Sodium Level 135 mmol/L (136-145); Troponin-I HS 3 pg/mL (3.0-78.0)
[2022-04-28 05:00] VITALS: BP 104/62; PULSE 77; RESP 12; O2SAT 99
[2022-04-28 05:50] VITALS: BP 111/60; PULSE 72; RESP 20; O2SAT 99
== END 2022-04-28 05:53 | disposition home or self-care (01) ==
PROVIDERS: Emergency Provider Emergency Medicine; PCP Nurse Practitioner Family; Visit Provider Emergency Medicine
DX: R07.9 Chest pain, unspecified (principal); E11.9 Type 2 diabetes mellitus without complications; I10 Essential (primary) hypertension; R10.10 Upper abdominal pain, unspecified; R00.2 Palpitations; E78.00 Pure hypercholesterolemia, unspecified; Z79.899 Other long term (current) drug therapy; Z87.891 Personal history of nicotine dependence; E66.9 Obesity, unspecified
CPT/HCPCS: 80048; 84484; 85025; 93005; 99284; A4216

== ENCOUNTER 2022-06-02 13:50 | Emergency (ER) | payer OTHER, SELFPAY ==
[2022-06-02 13:51] VITALS: BP 125/79; PULSE 82; RESP 18; TEMP 36.6; O2SAT 99; BMI 33.8
--- NOTE | 2022-06-02 14:09 | CT_ITS ---
STUDY: CT BRAIN WITHOUT CONTRAST REASON FOR EXAM: Male, 41 years old. HEADACHE Trauma TECHNIQUE: Transaxial CT imaging of the brain was performed without administration of intravenous contrast material. Individualized dose optimization techniques were used for this CT. COMPARISON: 01/27/2022 FINDINGS: Normal calvarium. Normal soft tissues. Normal size ventricles and extra-axial spaces for the patient''s age. Normal white matter tracts of the cerebral hemispheres. Normal basal ganglia and thalami. Normal brainstem. Normal cerebellum. There is no intracranial hemorrhage. There are no findings of an acute ischemic infarction. Normal visualized paranasal sinuses. ASPECTS 10 CT/Brain/Head without Contrast IMPRESSION: There are no acute intracranial findings. Electronically Signed: Aurelio Hopper MD at 14:33 EDT ,
--- NOTE | 2022-06-02 14:51 | EDS_ITS ---
HPI History of Present Illness Chief Complaint: Dizziness Informant: patient Narrative Narrative: Patient hit his head this morning at work. States it was about 9 in the morning. He was moving things around the freezer and he twisted and stood up and hit the back of his head. He did not lose consciousness but he saw stars. He then seemed to feel good. Later in the day he noticed that if he turns quickly or moves he gets slightly dizzy. After eating food, he got nauseated but did not quite vomit. He has no numbness tingling weakness. He is on no blood thinners. He had 1 other head injury long time ago. No history of intracranial mass or bleeding. No history of head surgery. [facility] Medical History HTN (hypertension) Irregular heart beat Home Medications lisinopril 10 mg tablet 10 mg PO DAILY blood pressure 01/03/22 [History Last Taken 04/27/22] pantoprazole 40 mg tablet,delayed release (Protonix) 40 mg PO DAILY #30 tabs 04/28/22 [Rx Last Taken Unknown] Allergy/AdvReac Type Severity Reaction Status Date / Time morphine AdvReac Other Verified 06/02/22 13:57 naproxen AdvReac Nausea Verified 06/02/22 13:57 Surgical History History of dental surgery Social History Smoking Status: Former smoker substance use type: does not use ROS ROS ED Constitutional Constitutional ED: Denies fever(s) Eyes Eyes: Denies blurry vision, change in vision or diplopia ENT ENT ED: Denies rhinorrhea or sore throat Cardiovascular Cardiovascular: Denies chest pain or palpitations Respiratory/Chest Respiratory/Chest: Denies cough or dyspnea Gastrointestinal Gastrointestinal: Reports nausea; Denies abdominal pain or vomiting Musculoskeletal Musculoskeletal: Denies back pain or neck pain Integumentary Denies rash Neurologic Neurologic: Reports headache(s); Denies paresthesias or weakness Endocrine Endocrinology: Denies polydipsia or polyuria Hematologic/Lymphatic Hematologic/Lymphatic: Denies easy bleeding or easy bruising Allergic/Immunologic Allergic/Immunologic ED: Denies urticaria EXAM Physical Exam Const Vital Signs: 06/02/22 13:51 Temperature 98 F Temperature Source Temporal Pulse Rate 82 Respiratory Rate 18 Blood Pressure 125/79 H Blood Pressure Mean 94 Pulse Ox 99 Oxygen Delivery Method Room Air Positive well nourished and well developed General Appearance ED: well developed and NAD HEENT Reports moist mucous membranes HEENT Narrative: He has some mild tenderness to the occipital region but I see no lesions. He has chronic skin lesions on the front of his forehead that were not involved with this event. Eyes EOMs intact bilaterally Neck no lymphadenopathy and supple Neck Narrative: No tenderness or pain with range of motion. General: Negative for tenderness Chest Wall inspection of chest normal Resp normal respiratory effort and clear to auscultation bilaterally Cardio regular rate, regular rhythm and no murmurs GI normal to inspection, nondistended, normoactive bowel sounds and non-tender Palpation: soft; Negative for tender Back/Spine no CVA tenderness Extremity normal to inspection Extremity Narrative: No extremity injury Neuro oriented x3 Sensorium / Orientation: alert Psych mental status grossly normal Attitude: No agitated Mood & Affect: Negative for depressed, anxious or tearful Skin no rashes or lesions noted and no wounds MDM MDM MDM Narrative Medical decision making narrative: Patient CT shows no acute process. He is rechecked. Neurologically intact. His gait and balance is normal. We discussed time to recovery and symptoms of a concussion. Radiography Diagnostic Testing: Clinical Impression(s) from Imaging Studies Brain CT 06/02/22 14:09 IMPRESSION: There are no acute intracranial findings. Electronically Signed: Aurelio Hopper MD at 14:33 EDT Reading Location ID and State: [facility] / [place] , Service support , Discharge Plan Triage Chief Complaint: Dizziness ED Provider: Jeison Lennon Dx/Rx/DC Orders Clinical Impression: Closed head injury with concussion Instructions: ED Head Injury (Adult) Prescriptions: No Action lisinopril 10 mg tablet 10 mg PO DAILY Label Comments: Take 1 tablet by mouth once daily. pantoprazole [Protonix] 40 mg tablet,delayed release (DR/EC) 40 mg PO DAILY Qty: 30 0RF Primary Care Provider: Guilherme Garces NP Referrals: Guilherme Garces NP, CUSTOMER SUPPORT REPRESENTATIVE-C [Primary Care Provider] - 1-2 Weeks Disposition Disposition: Home, Self Care
[2022-06-02 15:08] VITALS: BP 152/66; PULSE 62; RESP 15; O2SAT 99
== END 2022-06-02 15:09 | disposition home or self-care (01) ==
PROVIDERS: Emergency Provider Emergency Medicine; PCP Nurse Practitioner Family; Visit Provider Emergency Medicine
DX: S06.0X0A Concussion without loss of consciousness, initial encounter (principal); I10 Essential (primary) hypertension; Z79.899 Other long term (current) drug therapy; Z87.891 Personal history of nicotine dependence; W22.09XA Striking against other stationary object, initial encounter
CPT/HCPCS: 70450; 99282

== ENCOUNTER 2022-06-29 10:37 | Emergency (ER) | payer SELFPAY ==
[2022-06-29 10:38] VITALS: BP 129/97; PULSE 91; RESP 18; TEMP 36.6; O2SAT 100; BMI 33.8
--- NOTE | 2022-06-29 10:48 | EKG12_ITS ---
Test Reason : CHEST DISCOMFORT Blood Pressure : / mmHG Vent. Rate : 073 BPM Atrial Rate : 073 BPM P-R Int : 138 ms QRS Dur : 090 ms QT Int : 378 ms P-R-T Axes : 065 044 043 degrees QTc Int : 416 ms Normal sinus rhythm Normal ECG Confirmed by SERJIO PEÑALOZA, LANE ([id number]), online content editor JOHN MCGINNIS ([id number]) on 07/02/2022 11:31:26 AM Referred By: BRYAN Confirmed By:LANE BASSETT MD
--- NOTE | 2022-06-29 11:09 | EX.ED.DYSGE1 ---
HPI History of Present Illness Chief Complaint: Fatigue Informant: patient Onset/Context/Timing Onset: Days (4) Context: Gradual Onset Timing: Continuous Quality: Fatigue Location: All over Current Severity: Moderate Maximum Severity: Moderate Worsened by: Nothing in particular Relieved by: Nothing Associated Symptoms Associated Symptoms: Low back pain/soreness nonlateralizing, minor cough, chills, pounding heart Associated Symptoms ED: cough Narrative Narrative: Patient has been feeling poorly last couple days, he has low back pain but no diffuse myalgias. Occasional headaches, no vomiting or diarrhea, minor cough without dyspnea or chest discomfort but he states sometimes when he bends over my chest feels weak.. He states that on occasion he has felt his heart beating hard, but no palpitations or rapid heartbeat. He works at a local [employer] place, it has been very hot lately in the kitchen has been very hot, so he has been trying to drink fluids and is wondering if he is dehydrated and not catching up well. He has been drinking water and Gatorade. He states he has had a low sodium level before. No known COVID exposures, he has never had it that he knows of, he has had test in the past that were negative, he has not done a test since he had symptoms in the last 4 days, and he is unvaccinated. [facility] Medical History HTN (hypertension) Irregular heart beat Home Medications lisinopril 10 mg tablet 10 mg PO DAILY blood pressure 01/03/22 [History Last Taken 04/27/22] pantoprazole 40 mg tablet,delayed release (Protonix) 40 mg PO DAILY #30 tabs 04/28/22 [Rx Last Taken Unknown] Allergy/AdvReac Type Severity Reaction Status Date / Time morphine AdvReac Other Verified 06/29/22 11:54 naproxen AdvReac Nausea Verified 06/29/22 11:54 Surgical History History of dental surgery Social History Smoking Status: Former smoker substance use type: does not use ROS ROS ED Constitutional Constitutional ED: Reports chills, fatigue, headache(s) and malaise Eyes Eyes: Denies change in vision or diplopia ENT ENT ED: Denies rhinorrhea or sore throat Cardiovascular Cardiovascular: Denies chest pain, palpitations or racing heartbeat Respiratory/Chest Respiratory/Chest: Reports cough; Denies dyspnea or dyspnea on exertion Gastrointestinal Gastrointestinal: Denies abdominal pain, diarrhea, nausea or vomiting Genitourinary Genitourinary ED: Denies dysuria or hematuria Musculoskeletal Musculoskeletal: Reports back pain; Denies neck pain Integumentary Denies abscess or rash Neurologic Neurologic: Reports headache(s); Denies paresthesias or weakness Psychiatric Psychiatric: Denies anxiety or suicidal thoughts EXAM Physical Exam Const Vital Signs: 06/29/22 10:38 06/29/22 11:53 Temperature 98 F Temperature Source Temporal Pulse Rate 91 Respiratory Rate 18 Respiratory Effort Normal Non-Labored Respiratory Pattern Normal Blood Pressure 129/97 H Blood Pressure Mean 107 Pulse Ox 100 Oxygen Delivery Method Room Air Positive well nourished and well developed Constitutional Narrative: Well-appearing, no distress General Appearance ED: well developed and NAD HEENT Reports moist mucous membranes normocephalic and atraumatic Eyes PERRL and EOMs intact bilaterally Neck full ROM, no lymphadenopathy and supple General: Negative for tenderness Resp normal respiratory effort and clear to auscultation bilaterally Effort and Inspection: able to speak in complete sentences Cardio regular rate, regular rhythm and no murmurs Rate: Negative for bradycardia or tachycardic GI non-tender and non-distended Auscultation: normoactive bowel sounds Palpation: soft Back/Spine no CVA tenderness General Back: other FROM Extremity normal to inspection and no calf tenderness General Extremety ED: Negative for edema, pulses abnormal or tenderness General Extremity: Negative for edema or pulses abnormal Neuro oriented x3, CN's II-XII intact bilaterally and no sensory deficits noted Sensorium / Orientation: awake and alert Motor Exam: strength 5/5 throughout Psych mental status grossly normal Skin no rashes or lesions noted and no wounds MDM MDM MDM Narrative Medical decision making narrative: Labs are unremarkable with a negative influenza and negative COVID. I do not think he needs a chest x-ray his pulse ox is 100% with clear lungs and a minor cough. It is certainly possible that the rapid COVID is a false negative, but he has had symptoms for 4 days, he is asking for a work note for today which I think is reasonable, and then after tomorrow which is Saturday, he would technically be able to go back to work with a mask which he should be doing if he has a cough anyway so I do not think repeating or getting a PCR is necessary. Furthermore he meets no significant criteria for the antivirals. Minor heat related illness is in the differential. Encouraged to continue drinking fluids, his orthostatics are negative here but we gave him IV fluids anyway, discharged in stable improved condition. Lab Data Attestation: I reviewed the patient's lab results. Labs: Laboratory Results - last 24 hr 06/29/22 06/29/22 06/29/22 11:25 11:25 11:30 WBC 6.9 RBC 4.21 L Hgb 13.7 Hct 39.6 L MCV 94.1 H MCH 32.5 H MCHC 34.6 RDW Std Deviation 43.7 RDW Coeff of Lior 12.8 Plt Count 326 MPV 9.2 Immature Gran % (Auto) 0.400 Neut % (Auto) 57.9 Lymph % (Auto) 30.1 [place] % (Auto) 10.2 H Eos % (Auto) 0.7 Baso % (Auto) 0.7 Absolute Neuts (auto) 4.0 Absolute Lymphs (auto) 2.07 Nucleated RBC % 0 Sodium 135 L Potassium 4.0 Chloride 105 Carbon Dioxide 24.0 Anion Gap 6 BUN 15 Creatinine 1.00 Estim Creat Clear Calc 75.08 Est GFR (MDRD) Af Amer 105 Est GFR (MDRD) Non-Af 87 BUN/Creatinine Ratio 15.0 Glucose 105 Calcium 9.0 Troponin I High Sens 4 Urine Color Straw Urine Clarity Clear Urine pH 7.0 Ur Specific [place] 1.010 Urine Protein Negative Urine Glucose (UA) Normal Urine Ketones Negative Urine Occult Blood Negative Urine Nitrite Negative Urine Bilirubin Negative Urine Urobilinogen Normal Ur Leukocyte Esterase Negative Urine RBC 0 SEEN Urine WBC 0 SEEN Ur Squamous Epith Cells 0 SEEN Urine Bacteria 0 SEEN Urine Mucus 0 SEEN Rhythm Strip Rhythm Strip: Sinus Rhythm Rate: 73 Ectopy: None EKG Initial EKG: Attestation: I personally reviewed and interpreted this EKG as follows: Interpretation: Sinus Rhythm and No Acute Injury Pattern Comments: Normal EKG Prior EKG tracings: available for review Prior: Unchanged Discharge Plan Triage Chief Complaint: Fatigue ED Provider: Manny,Rohit Dx/Rx/DC Orders Clinical Impression: Heat effect, Malaise and fatigue, Cough, Low back pain Instructions: Understanding Heat Stress Prescriptions: No Action lisinopril 10 mg tablet 10 mg PO DAILY Label Comments: Take 1 tablet by mouth once daily. pantoprazole [Protonix] 40 mg tablet,delayed release (DR/EC) 40 mg PO DAILY Qty: 30 0RF Stand Alone Forms: ED Work / School Excuse Primary Care Provider: Guilherme Garces NP Referrals: Guilherme Garces NP, NUMERICAL CONTROL TOOL PROGRAMMER-C [Primary Care Provider] - 3-5 Days if not improving Activity Restrictions/Additional Instructions: After today as long as you are not feeling worse, you may go back to work but as long as you have a cough you need to wear a mask. Disposition Disposition: Home, Self Care
[2022-06-29] MEDS: 0.9% Normal Saline 1,000 ML 999 ML IV (11:43)
[2022-06-29 11:44] LABS: Bacteria 0 SEEN /hpf (None Seen); Color, Urine Straw (Yellow); Glucose, Dipstick Normal (Normal); Ketone-Dipstick Negative (Negative); Leukocyte Esterase-Dipstick Negative /ul (Negative); Mucous, Urine 0 SEEN /hpf (<or=2+); Nitrite-Dipstick Negative (Negative); Occult Blood-Urine Negative /ul (Negative); Protein-Dipstick Negative (Negative); Red Blood Cells-Urine 0 SEEN /hpf (0-5); Squamous Epithelial Cells - UA 0 SEEN /hpf (0-5); Urine Bilirubin Dipstick Negative (Negative); Urine Clarity Clear (Clear); Urine Urobilinogen Normal (Normal); White Blood Cells 0 SEEN /hpf (0-5)
[2022-06-29 11:58] LABS: Anion Gap 6 (5-15); BUN 15 mg/dL (7-18); Chloride 105 mmol/L (98-107); EST Glomerular Filtration Rate 87 mL/min (>60); Est Glom Filt Rate - Afr Amer 105 mL/min (>60); Estimated Creatinine Clearance 75.08 ml/min; Glucose 105 mg/dL (74-106); Sodium Level 135 mmol/L (136-145); Troponin-I HS 4 pg/mL (3.0-78.0)
[2022-06-29 12:38] VITALS: RESP 18
[2022-06-29 12:40] LABS: Absolute Lymphocyte Count 2.07 X10^3/uL (0.83-4.51); Basophil# 0.05 X10^3/uL; Basophil% 0.7 % (0-1); Eosinophil# 0.05 X10^3/uL; Eosinophils% 0.7 % (0-5); Hematocrit 39.6 % (40-54); Hemoglobin 13.7 g/dL (13.0-16.5); Lymphocyte # 2.07 X10^3/ul (0.83-4.51); Lymphocyte % 30.1 % (19-41); Mean Corp Hgb Conc 34.6 g/dL (32-36); Mean Corpuscular Hgb 32.5 pg (27.0-32.0); Mean Corpuscular Volume 94.1 fL (80-94); Mean Platelet Vol. 9.2 fl (6.2-12.0); Monocyte% 10.2 % (0-10); NRBC Flagged by Analyzer 0 % (0-5); Neutrophil # 3.98 X10^3/uL (2.7-7.7); Neutrophil % 57.9 % (47-70); Platelet Count 326 K/mm3 (150-450); RBC Distribution Width CV 12.8 % (11.6-14.6); RBC Distribution Width SD 43.7 fl (35.1-43.9); Red Blood Count 4.21 M/mm3 (4.6-6.2); White Blood Count 6.9 K/mm3 (4.4-11.0)
[2022-06-29 12:46] VITALS: RESP 18
== END 2022-06-29 12:57 | disposition home or self-care (01) ==
PROVIDERS: Emergency Provider Emergency Medicine; PCP Nurse Practitioner Family; Visit Provider Emergency Medicine
DX: T67.9XXA Effect of heat and light, unspecified, initial encounter (principal); M54.50 Low back pain, unspecified; I10 Essential (primary) hypertension; R05.9 Cough, unspecified; Z20.822 Contact with and (suspected) exposure to COVID-19; Z87.891 Personal history of nicotine dependence; Z79.899 Other long term (current) drug therapy; X30.XXXA Exposure to excessive natural heat, initial encounter; Y99.0 Civilian activity done for income or pay
CPT/HCPCS: 80048; 81001; 84484; 85025; 87428; 93005; 96360; 99283; J7030; A4216

== ENCOUNTER 2022-08-15 06:22 | Emergency (ER) | payer SELFPAY ==
[2022-08-15 06:23] VITALS: BP 126/67; PULSE 76; RESP 12; TEMP 36.7; O2SAT 100; BMI 35.6
--- NOTE | 2022-08-15 06:56 | RAD_ITS ---
INDICATION: chest pain EXAMINATION/TECHNIQUE: X-RAY - XR Chest 1 View COMPARISON: 02/15/2022 FINDINGS: LINES/DEVICES: None. LUNGS: No consolidation, edema or effusion. No pneumothorax. MEDIASTINUM AND CARDIOVASCULAR STRUCTURES: Cardiac silhouette not enlarged. Central airways and mediastinal contour are unremarkable. BONES AND SOFT TISSUES: Unremarkable. RAD/Chest 1 View (Portable) IMPRESSION: No acute cardiopulmonary disease. Electronically Signed: Chris Gallego MD at 7:30 EDT ,
--- NOTE | 2022-08-15 06:56 | EKG12_ITS ---
Test Reason : CP Blood Pressure : / mmHG Vent. Rate : 073 BPM Atrial Rate : 073 BPM P-R Int : 132 ms QRS Dur : 096 ms QT Int : 396 ms P-R-T Axes : 059 046 037 degrees QTc Int : 436 ms Normal sinus rhythm Normal ECG When compared with ECG of 29-JUN-2022 10:48, No significant change was found Confirmed by MAXIM PEÑALOZA, JORDI ([id number]), deputy editor in chief JOHN MCGINNIS ([id number]) on 08/20/2022 9:51:40 AM Referred By: PL Confirmed By:JORDI PAN MD
--- NOTE | 2022-08-15 06:56 | ED.VIS.CHEST ---
HPI History of Present Illness Chief Complaint: Chest Pain Informant: patient Narrative Narrative: Patient presents with chest pain episodes. He has a history of having chest pain. He has a history of palpitations. He has a history of anxiety. He states since 930 last night he has been getting lightning bolts of pain across his chest. He normally gets these from the right side of his chest to the middle. These are more completely in the middle but they are of similar feeling. He also has the feeling that his heart is pounding out of his chest but its not fast or slow or or irregular. He just feels like it is hitting the inside of his chest hard. This is a typical feeling he has. Patient denies any history of coronary artery disease. He denies any street drugs. No excessive caffeine. Patient does have a history of high blood pressure and is on lisinopril. He quit smoking 2 years ago. No diabetes cholesterol or family history of heart disease. No recent travel surgery or immobilization personal or family history of DVT or PE. He has no leg pain. [facility] Medical History HTN (hypertension) Irregular heart beat Home Medications lisinopril 10 mg tablet 10 mg PO DAILY blood pressure 01/03/22 [History Last Taken 04/27/22] Allergy/AdvReac Type Severity Reaction Status Date / Time morphine AdvReac Other Verified 08/15/22 06:26 naproxen AdvReac Nausea Verified 08/15/22 06:26 Surgical History History of dental surgery Social History Smoking Status: Former smoker substance use type: does not use ROS ROS ED Constitutional Constitutional ED: Denies chills or fever(s) Eyes Eyes: Denies change in vision ENT ENT ED: Denies rhinorrhea or sore throat Cardiovascular Cardiovascular: Reports as per HPI Respiratory/Chest Respiratory/Chest: Denies cough or dyspnea Gastrointestinal Gastrointestinal: Denies abdominal pain, nausea or vomiting Musculoskeletal Musculoskeletal: Denies back pain or neck pain Integumentary Denies rash Neurologic Neurologic: Denies headache(s), paresthesias or weakness Psychiatric Psychiatric: Reports anxiety Endocrine Endocrinology: Denies polydipsia or polyuria Hematologic/Lymphatic Hematologic/Lymphatic: Denies easy bleeding or easy bruising Allergic/Immunologic Allergic/Immunologic ED: Denies urticaria EXAM Physical Exam Const Vital Signs: 08/15/22 06:23 08/15/22 06:28 08/15/22 07:04 Temperature 98.1 F Temperature Source Temporal Pulse Rate 76 Respiratory Rate 12 Respiratory Effort Normal Non-Labored Blood Pressure 126/67 H Blood Pressure Mean 86 Pulse Ox 100 Oxygen Delivery Method Room Air Room Air 08/15/22 07:27 Temperature Temperature Source Pulse Rate 62 Respiratory Rate 12 Respiratory Effort Blood Pressure 110/62 Blood Pressure Mean 78 Pulse Ox 97 Oxygen Delivery Method Room Air Positive well nourished and well developed Constitutional Narrative: Not diaphoretic. No apparent dyspnea. O2 sats normal on room air. General Appearance ED: well developed and NAD HEENT Reports moist mucous membranes Eyes General Eye ED: Negative for scleral icterus Neck no lymphadenopathy and no JVD Chest Wall inspection of chest normal Chest Narrative: I see no rashes. There is no notable tenderness Resp normal respiratory effort and clear to auscultation bilaterally Resp Narrative: No pain with a deep breath. Effort and Inspection: Negative for pain with movement Auscultation: Negative for rales, rhonchi or wheezes Cardio regular rate and regular rhythm Rhythm: abnormal rhythm other (Rhythm sounds and looks regular on the monitor. Appears to be sinus. I do not see any ectopy while in the room. No sinus pauses. No abnormal rhythm) GI normal to inspection, nondistended, normoactive bowel sounds and soft to palpation GI Narrative: No tenderness including none in the epigastrium or right upper quad Back/Spine no CVA tenderness Extremity normal to inspection Extremity Narrative: No edema, cords, asymmetry. No tenderness along the deep venous system. No distended veins. General Extremety ED: Negative for edema General Extremity: Negative for edema Neuro Sensorium / Orientation: awake and alert Psych mental status grossly normal Skin no rashes or lesions noted Heart Score History: Slightly/Non-Suspicious ECG: Normal Age: </= 45 years Risk Factors: 1 or 2 Risk Factors Score: 1 MDM MDM MDM Narrative Medical decision making narrative: Chest x-ray is unremarkable. CBC is normal. We are pending BMP and troponin. I do not think this patient is likely having angina. His symptoms are electric shock and lasted a matter of seconds. He is relatively low risk for heart disease. I think if his work-up is negative he can go home. He has also had the symptoms in the past. Lab Data Attestation: I reviewed the patient's lab results. Labs: Laboratory Results - last 24 hr 08/15/22 06:35 WBC 6.3 RBC 4.55 L Hgb 14.4 Hct 42.6 MCV 93.6 MCH 31.6 MCHC 33.8 RDW Std Deviation 43.7 RDW Coeff of Lior 12.6 Plt Count 301 MPV 9.0 Immature Gran % (Auto) 0.300 Neut % (Auto) 50.7 Lymph % (Auto) 33.4 [place] % (Auto) 13.1 H Eos % (Auto) 1.7 Baso % (Auto) 0.8 Absolute Neuts (auto) 3.2 Absolute Lymphs (auto) 2.11 Nucleated RBC % 0 Radiography Diagnostic Testing: Single view AP chest x-ray read by me shows no sign of pneumothorax, significant cardiomegaly, fluid infiltrate or acute process. Discharge Plan Triage Chief Complaint: Chest Pain ED Provider: Jeison Lennon Dx/Rx/DC Orders Prescriptions: No Action lisinopril 10 mg tablet 10 mg PO DAILY Label Comments: Take 1 tablet by mouth once daily. Primary Care Provider: Guilherme Garces NP Referrals: Guilherme Garces NP, ELECTRICAL MECHANIC-C [Primary Care Provider] -
[2022-08-15 07:14] LABS: Absolute Lymphocyte Count 2.11 X10^3/uL (0.83-4.51); Absolute Neutrophil Count 3.2 X10^3/uL (2.0-7.7); Basophil# 0.05 X10^3/uL; Basophil% 0.8 % (0-1); Eosinophil# 0.11 X10^3/uL; Eosinophils% 1.7 % (0-5); Hematocrit 42.6 % (40-54); Hemoglobin 14.4 g/dL (13.0-16.5); Lymphocyte # 2.11 X10^3/ul (0.83-4.51); Lymphocyte % 33.4 % (19-41); Mean Corp Hgb Conc 33.8 g/dL (32-36); Mean Corpuscular Hgb 31.6 pg (27.0-32.0); Mean Corpuscular Volume 93.6 fL (80-94); Monocyte# 0.83 X10^3/uL; Monocyte% 13.1 % (0-10); NRBC Flagged by Analyzer 0 % (0-5); Neutrophil % 50.7 % (47-70); Platelet Count 301 K/mm3 (150-450); RBC Distribution Width CV 12.6 % (11.6-14.6); RBC Distribution Width SD 43.7 fl (35.1-43.9); Red Blood Count 4.55 M/mm3 (4.6-6.2); White Blood Count 6.3 K/mm3 (4.4-11.0)
[2022-08-15 07:27] VITALS: BP 110/62; PULSE 62; RESP 12; O2SAT 97
[2022-08-15 07:30] LABS: Anion Gap 8 (5-15); BUN 8 mg/dL (7-18); BUN/Creat Ratio 7.1 RATIO (10-20); Calcium,Total 9.1 mg/dL (8.5-10.1); Chloride 101 mmol/L (98-107); Creatinine, Serum 1.12 mg/dL (0.70-1.30); EST Glomerular Filtration Rate 76 mL/min (>60); Est Glom Filt Rate - Afr Amer 92 mL/min (>60); Estimated Creatinine Clearance 66.35 ml/min; Glucose 105 mg/dL (74-106); Potassium 3.7 mmol/L (3.5-5.1); Sodium Level 137 mmol/L (136-145); Troponin-I HS (w/2H Reflex) 4 pg/mL (3.0-78.0)
[2022-08-15 07:43] VITALS: BP 110/62; PULSE 74; RESP 14; O2SAT 98
[2022-08-15 09:10] LABS: Reflex Troponin-HS? (from REC) Y
== END 2022-08-15 07:50 | disposition home or self-care (01) ==
LOC: ED 07:46
PROVIDERS: Emergency Provider Emergency Medicine; Visit Provider Emergency Medicine
DX: R07.9 Chest pain, unspecified (principal); F41.9 Anxiety disorder, unspecified; I10 Essential (primary) hypertension; Z87.891 Personal history of nicotine dependence; Z79.899 Other long term (current) drug therapy
CPT/HCPCS: 71045; 80048; 84484; 85025; 93005; 99284

== ENCOUNTER 2022-11-14 15:24 | Emergency (ER) | payer MEDICAID, SELFPAY ==
[2022-11-14 15:25] VITALS: BP 140/63; PULSE 81; RESP 15; TEMP 36.3; O2SAT 98; BMI 36.0
--- NOTE | 2022-11-14 15:47 | EKG12_ITS ---
Test Reason : PALP Blood Pressure : / mmHG Vent. Rate : 079 BPM Atrial Rate : 079 BPM P-R Int : 138 ms QRS Dur : 084 ms QT Int : 374 ms P-R-T Axes : 056 047 034 degrees QTc Int : 428 ms Normal sinus rhythm Normal ECG Confirmed by SERJIO PEÑALOZA, LANE ([id number]), editorial intern JOHN MCGINNIS ([id number]) on 11/15/2022 8:31:16 AM Referred By: Confirmed By:LANE BASSETT MD
--- NOTE | 2022-11-14 15:48 | EX.ED.DYSGE1 ---
HPI History of Present Illness Chief Complaint: Palpitations Informant: patient Onset/Context/Timing Onset: Yesterday Context: Sudden Onset Timing: Intermittent and Lasts (seconds usually) Quality: skipping, pause, irregular Location: chest Current Severity: Gone Maximum Severity: Moderate Worsened by: nothing in particular Relieved by: nothing Associated Symptoms Associated Symptoms: none Narrative Narrative: Patient presents because since yesterday he has been having intermittent palpitations as above. No near syncope or lightheadedness or syncope. No chest pain or dyspnea. No leg swelling. He states he recently was out of work and had some financial issues but he is back at work, trying to pay bills that he owed such as electric, cell phone, etc. and ran out of his blood pressure medication about 4 or 5 days ago. He has called his doctor, but they will not write him a new prescription until I catch up on financials. He is wondering if the symptoms are due to being out of his blood pressure medication which he is usually compliant with. He denies any fever, new cough, other symptoms. He denies using any drugs or substances. He says he has had this happen before but cannot remember details. [facility] Medical History HTN (hypertension) Irregular heart beat Home Medications lisinopril 10 mg tablet 10 mg PO DAILY blood pressure #30 tabs 11/14/22 [Rx Last Taken Unknown] Allergy/AdvReac Type Severity Reaction Status Date / Time morphine AdvReac Upset Verified 11/14/22 15:25 Stomach naproxen AdvReac Upset Verified 11/14/22 15:25 Stomach Surgical History History of dental surgery Social History Smoking Status: Former smoker substance use type: does not use ROS ROS ED Constitutional Constitutional ED: Denies chills or fever(s) Eyes Eyes: Denies change in vision or diplopia ENT ENT ED: Denies rhinorrhea or sore throat Cardiovascular Cardiovascular: Reports palpitations; Denies chest pain or racing heartbeat Respiratory/Chest Respiratory/Chest: Denies cough or dyspnea Gastrointestinal Gastrointestinal: Reports diarrhea; Denies abdominal pain, nausea or vomiting Genitourinary Genitourinary ED: Denies dysuria or hematuria Musculoskeletal Musculoskeletal: Denies back pain or neck pain Integumentary Denies abscess or rash Neurologic Neurologic: Denies headache(s), paresthesias or weakness Psychiatric Psychiatric: Denies anxiety or suicidal thoughts EXAM Physical Exam Const Vital Signs: 11/14/22 15:25 Temperature 97.3 F L Temperature Source Temporal Pulse Rate 81 Respiratory Rate 15 Blood Pressure 140/63 H Blood Pressure Mean 88 Pulse Ox 98 Oxygen Delivery Method Room Air Positive well nourished and well developed General Appearance ED: well developed and NAD HEENT Reports moist mucous membranes normocephalic and atraumatic Eyes PERRL and EOMs intact bilaterally Neck full ROM and supple Resp normal respiratory effort and clear to auscultation bilaterally Cardio regular rate, regular rhythm and no murmurs GI non-tender and non-distended Auscultation: normoactive bowel sounds Palpation: soft Back/Spine no CVA tenderness General Back: other FROM Extremity normal to inspection General Extremety ED: Negative for edema, pulses abnormal or tenderness General Extremity: Negative for edema or pulses abnormal Neuro oriented x3, CN's II-XII intact bilaterally and no sensory deficits noted Sensorium / Orientation: awake and alert Motor Exam: strength 5/5 throughout Skin no rashes or lesions noted and no wounds MDM MDM MDM Narrative Medical decision making narrative: Patient has a normal metabolic work-up, done because the patient has some diarrhea recently, and a normal EKG had no ectopy while he was monitored here in emergency department nor did he have any recurrent symptoms. No symptoms of angina or need for a chest x-ray at this time. Given all of this, I do not think that there is likely anything dangerous going on which I explained to him, and I think it would be reasonable to give him a temporary refill on his lisinopril 10 mg daily, which hopefully will help control his symptoms. He is in agreement and comfortable with that overall plan we discussed reasons to return. Lab Data Attestation: I reviewed the patient's lab results. Labs: Laboratory Results - last 24 hr 11/14/22 11/14/22 15:56 15:56 WBC 7.9 RBC 4.28 L Hgb 13.6 Hct 40.1 MCV 93.7 MCH 31.8 MCHC 33.9 RDW Std Deviation 42.7 RDW Coeff of Lior 12.4 Plt Count 290 MPV 9.0 Immature Gran % (Auto) 0.400 Neut % (Auto) 64.8 Lymph % (Auto) 24.7 [place] % (Auto) 9.1 Eos % (Auto) 0.4 Baso % (Auto) 0.6 Absolute Neuts (auto) 5.1 Absolute Lymphs (auto) 1.95 Nucleated RBC % 0 Sodium 138 Potassium 3.5 Chloride 107 Carbon Dioxide 24.0 Anion Gap 7 BUN 13 Creatinine 1.00 Estim Creat Clear Calc 74.32 Est GFR (MDRD) Af Amer 106 Est GFR (MDRD) Non-Af 87 BUN/Creatinine Ratio 13.1 Glucose 111 H Calcium 8.7 Rhythm Strip Rhythm Strip: Sinus Rhythm Rate: 80 Ectopy: None EKG Initial EKG: Attestation: I personally reviewed and interpreted this EKG as follows: Interpretation: Sinus Rhythm and No Acute Injury Pattern Comments: Normal EKG Discharge Plan Triage Chief Complaint: Palpitations ED Provider: Rohit Bryant Dx/Rx/DC Orders Clinical Impression: Palpitations, Medication refill, Acute diarrhea Instructions: ED Palpitations Prescriptions: Continued lisinopril 10 mg tablet 10 mg PO DAILY Qty: 30 0RF Primary Care Provider: Care Physician,No Primary Referrals: Ranjit Escalona MD [Non-Staff] - (when able) Disposition Disposition: Home, Self Care
[2022-11-14 16:08] LABS: Absolute Lymphocyte Count 1.95 X10^3/uL (0.83-4.51); Absolute Neutrophil Count 5.1 X10^3/uL (2.0-7.7); Basophil# 0.05 X10^3/uL; Basophil% 0.6 % (0-1); Eosinophil# 0.03 X10^3/uL; Eosinophils% 0.4 % (0-5); Hematocrit 40.1 % (40-54); Hemoglobin 13.6 g/dL (13.0-16.5); Lymphocyte # 1.95 X10^3/ul (0.83-4.51); Lymphocyte % 24.7 % (19-41); Mean Corp Hgb Conc 33.9 g/dL (32-36); Mean Corpuscular Hgb 31.8 pg (27.0-32.0); Mean Corpuscular Volume 93.7 fL (80-94); Monocyte# 0.72 X10^3/uL; Monocyte% 9.1 % (0-10); NRBC Flagged by Analyzer 0 % (0-5); Neutrophil # 5.13 X10^3/uL (2.7-7.7); Neutrophil % 64.8 % (47-70); Platelet Count 290 K/mm3 (150-450); RBC Distribution Width CV 12.4 % (11.6-14.6); RBC Distribution Width SD 42.7 fl (35.1-43.9); Red Blood Count 4.28 M/mm3 (4.6-6.2); White Blood Count 7.9 K/mm3 (4.4-11.0)
[2022-11-14 16:38] LABS: Anion Gap 7 (5-15); BUN 13 mg/dL (7-18); BUN/Creat Ratio 13.1 RATIO (10-20); Calcium,Total 8.7 mg/dL (8.5-10.1); Chloride 107 mmol/L (98-107); EST Glomerular Filtration Rate 87 mL/min (>60); Est Glom Filt Rate - Afr Amer 106 mL/min (>60); Estimated Creatinine Clearance 74.32 ml/min; Glucose 111 mg/dL (74-106); Potassium 3.5 mmol/L (3.5-5.1); Sodium Level 138 mmol/L (136-145)
[2022-11-14 16:42] VITALS: PULSE 77; RESP 16; O2SAT 97
== END 2022-11-14 17:40 | disposition home or self-care (01) ==
PROVIDERS: Emergency Provider Emergency Medicine; Visit Provider Emergency Medicine
DX: R00.2 Palpitations (principal); R19.7 Diarrhea, unspecified; I10 Essential (primary) hypertension; Z76.0 Encounter for issue of repeat prescription; Z87.891 Personal history of nicotine dependence; Z91.190 Patient's noncompliance with other medical treatment and regimen due to financial hardship
CPT/HCPCS: 80048; 85025; 93005; 99283; A4216

== ENCOUNTER 2023-04-06 13:51 | Emergency (ER) | payer SELFPAY ==
[2023-04-06 13:52] VITALS: BP 135/84; PULSE 84; RESP 16; TEMP 36.1; O2SAT 98; BMI 35.3
--- NOTE | 2023-04-06 14:15 | CT_ITS ---
STUDY: CT ABDOMEN AND PELVIS WITH CONTRAST REASON FOR EXAM: Male, 42 years old. RLQ pain RADIATION DOSAGE (If Supplied By Facility): CTDIvol = ( 15.68 ) mGy, DLP = ( 1085.03 ) mGycm TECHNIQUE: Transaxial images were obtained from the dome of the diaphragm to the symphysis pubis without oral contrast. IV 100mL Isovue-300 was administered. Sagittal and coronal images were reconstructed. Individualized dose optimization techniques were used for this CT. COMPARISON: None. FINDINGS: The visualized lung bases are unremarkable. The visualized portions of the heart are within normal limits. Normal liver. Normal gallbladder and extrahepatic biliary system. Normal spleen. Normal pancreas. Normal bilateral adrenal glands. Normal right kidney. Normal left kidney. Evaluation of the GI tract is limited by absence of oral contrast. Cannot exclude stomach wall thickening. No dilated loops of bowel or evidence for obstruction. Cannot exclude segmental thickening of the nguyen of the small or large bowel. Cannot exclude enteritis or colitis. Diverticulosis without definite diverticulitis. Appendix within normal limits. Normal abdominal aorta. Normal inferior vena cava. Normal retroperitoneum. Normal urinary bladder. Normal abdominal wall. Normal osseous structures. CT/Abdomen/Pelvis W IV Cont ONLY IMPRESSION: No definite acute or significant abnormality seen. Electronically Signed: Rob Logan MD at 15:17 EDT ,
--- NOTE | 2023-04-06 14:21 | EX.ED.DYSGE1 ---
HPI <MILA De Luna - Last Filed: 04/06/23 19:03> History of Present Illness Chief Complaint: Abd Pain Narrative Narrative: Patient presenting today with right lower quadrant sharp and stabbing abdominal pain he has had for the last 3 to 4 days intermittently. He states that the pain comes on randomly and radiates to his right lower back and at times to the left lower back. He has had nausea without any vomiting. He denies any past abdominal surgeries. He reports that he has been straining more over the past few days and is only passing small pebble sized stool. He denies any fever, chills, blood in the stool, diarrhea, and urinary symptoms. PMH includes hypertension. PFSH <MILA De Luna - Last Filed: 04/06/23 19:03> PFSH Medical History HTN (hypertension) Irregular heart beat Home Medications lisinopril 10 mg tablet 10 mg PO DAILY blood pressure #30 tabs 11/14/22 [Rx Last Taken Unknown] lisinopril 10 mg tablet 10 mg PO DAILY #14 tabs 04/06/23 [Rx Last Taken Unknown] Allergy/AdvReac Type Severity Reaction Status Date / Time morphine AdvReac Upset Verified 04/06/23 13:52 Stomach naproxen AdvReac Upset Verified 04/06/23 13:52 Stomach Surgical History History of dental surgery Social History Smoking Status: Former smoker substance use type: does not use ROS <MILA De Luna - Last Filed: 04/06/23 19:03> ROS ED Constitutional Constitutional ED: Denies chills or fever(s) Cardiovascular Cardiovascular: Denies chest pain or palpitations Respiratory/Chest Respiratory/Chest: Denies cough or dyspnea Gastrointestinal Gastrointestinal: Reports abdominal pain, constipation and nausea; Denies diarrhea or vomiting Genitourinary Genitourinary ED: Denies dysuria, hematuria or urinary urgency Musculoskeletal Musculoskeletal: Reports back pain; Denies myalgias or neck pain Integumentary Denies abscess, Abrasions or rash Neurologic Neurologic: Denies weakness Psychiatric Psychiatric: Denies anxiety, depression, suicidal ideation or suicidal thoughts EXAM <MILA De Luna - Last Filed: 04/06/23 19:03> Physical Exam Const Vital Signs: 04/06/23 13:52 04/06/23 16:01 Temperature 97.0 F L Temperature Source Temporal Pulse Rate 84 74 Respiratory Rate 16 16 Blood Pressure 135/84 H 120/79 Blood Pressure Mean 101 Pulse Ox 98 100 Oxygen Delivery Method Room Air Positive well nourished, well developed and no apparent distress General Appearance ED: well developed HEENT Reports normocephalic and head/scalp atraumatic Mouth ED: Yes moist mucous membranes normal Eyes PERRL and EOMs intact bilaterally Neck full ROM and supple Chest Wall inspection of chest normal Resp normal respiratory effort and clear to auscultation bilaterally Cardio regular rate and regular rhythm GI non-distended and no masses GI Narrative: Right lower quadrant tenderness to palpation without any guarding or rigidity. Palpation: soft Back/Spine normal ROM and normal to inspection Extremity normal to inspection and full ROM Neuro oriented x3, CN's II-XII intact bilaterally, moves all extremities, no focal motor deficits and no sensory deficits noted Sensorium / Orientation: awake and alert Psych mental status grossly normal and thought process normal Skin no rashes or lesions noted and no wounds <Dr. Jeremy Garcia DO - Last Filed: 04/06/23 19:51> Physical Exam Const Vital Signs: 04/06/23 13:52 04/06/23 16:01 Temperature 97.0 F L Temperature Source Temporal Pulse Rate 84 74 Respiratory Rate 16 16 Blood Pressure 135/84 H 120/79 Blood Pressure Mean 101 Pulse Ox 98 100 Oxygen Delivery Method Room Air MDM <MILA De Luna - Last Filed: 04/06/23 19:03> [facility] Narrative Medical decision making narrative: Patient presenting today with sharp and intermittent right lower quadrant pain that he has had for the past 3 to 4 days. He states he has had nausea but is not currently nauseous and does not need anything for nausea. Labs to be obtained to rule out leukocytosis, anemia, electrolyte abnormality, assess kidney function, assess liver enzymes. Toradol has been given for pain, CT scan of the abdomen pelvis to be obtained due to right lower quadrant tenderness to palpation to rule out appendicitis, diverticulitis, bowel obstruction, and other abdominal etiology. Labs overall are unremarkable, CT scan does not show any acute findings. On reexamination, he is feeling better. His pain likely could be attributed to his constipation. I have encouraged him to take [id number] MiraLAX or Dulcolax as he has not tried to take anything yet. He currently does not have a PCP and has been out of his lisinopril for the past few days. I have given him a short refill of this as well as a PCP referral. He will be discharged home in stable condition and is comfortable with plan. Lab Data Attestation: I reviewed the patient's lab results. Labs: Laboratory Results - last 24 hr 04/06/23 04/06/23 14:20 14:20 WBC 5.3 RBC 4.41 L Hgb 13.9 Hct 41.7 MCV 94.6 H MCH 31.5 MCHC 33.3 RDW Std Deviation 42.5 RDW Coeff of Lior 12.2 Plt Count 281 MPV 9.0 Immature Gran % (Auto) 0.200 Neut % (Auto) 49.0 Lymph % (Auto) 35.9 [place] % (Auto) 12.0 H Eos % (Auto) 2.1 Baso % (Auto) 0.8 Absolute Neuts (auto) 2.6 Absolute Lymphs (auto) 1.89 Nucleated RBC % 0 Sodium 141 Potassium 3.5 Chloride 108 H Carbon Dioxide 27.0 Anion Gap 6 BUN 17 Creatinine 0.95 Estim Creat Clear Calc 78.23 Est GFR (MDRD) Af Amer 111 Est GFR (MDRD) Non-Af 92 BUN/Creatinine Ratio 17.9 Glucose 112 H Calcium 8.5 Total Bilirubin 1.10 H AST 19 ALT 28 Alkaline Phosphatase 84 Total Protein 6.9 Albumin 3.6 Globulin 3.3 Albumin/Globulin Ratio 1.1 Radiography Diagnostic Testing: Clinical Impression(s) from Imaging Studies Abdomen/Pelvis CT 04/06/23 14:15 IMPRESSION: No definite acute or significant abnormality seen. Electronically Signed: Rob Logan MD at 15:17 EDT , CT also reviewed and interpreted by attending ED physician, in agreement with radiology. <Dr. Jeremy Garcia, DO - Last Filed: 04/06/23 19:51> [facility] MDM Narrative Medical decision making narrative: Patient presenting today with sharp and intermittent right lower quadrant pain that he has had for the past 3 to 4 days. He states he has had nausea but is not currently nauseous and does not need anything for nausea. Labs to be obtained to rule out leukocytosis, anemia, electrolyte abnormality, assess kidney function, assess liver enzymes. Toradol has been given for pain, CT scan of the abdomen pelvis to be obtained due to right lower quadrant tenderness to palpation to rule out appendicitis, diverticulitis, bowel obstruction, and other abdominal etiology. Labs overall are unremarkable, CT scan does not show any acute findings. On reexamination, he is feeling better. His pain likely could be attributed to his constipation. I have encouraged him to take [id number] MiraLAX or Dulcolax as he has not tried to take anything yet. He currently does not have a PCP and has been out of his lisinopril for the past few days. I have given him a short refill of this as well as a PCP referral. He will be discharged home in stable condition and is comfortable with plan. Attending note: Patient seen and evaluated with dementia program director. I perform my own [id number] evaluation. I agree with the plan of work-up. Intermittent right lower quadrant abdominal pain rating to his back last 3 to 4 days. No urinary symptoms. No abdominal surgeries. Exam mild pain right lower quadrant is no guarding or rebound. Renal stone protocol initiated labs are stable we will. CT scan no obstructive process no inflammatory findings. Reassured with outpatient follow-up. Lab Data Labs: Laboratory Results - last 24 hr 04/06/23 04/06/23 14:20 14:20 WBC 5.3 RBC 4.41 L Hgb 13.9 Hct 41.7 MCV 94.6 H MCH 31.5 MCHC 33.3 RDW Std Deviation 42.5 RDW Coeff of Lior 12.2 Plt Count 281 MPV 9.0 Immature Gran % (Auto) 0.200 Neut % (Auto) 49.0 Lymph % (Auto) 35.9 [place] % (Auto) 12.0 H Eos % (Auto) 2.1 Baso % (Auto) 0.8 Absolute Neuts (auto) 2.6 Absolute Lymphs (auto) 1.89 Nucleated RBC % 0 Sodium 141 Potassium 3.5 Chloride 108 H Carbon Dioxide 27.0 Anion Gap 6 BUN 17 Creatinine 0.95 Estim Creat Clear Calc 78.23 Est GFR (MDRD) Af Amer 111 Est GFR (MDRD) Non-Af 92 BUN/Creatinine Ratio 17.9 Glucose 112 H Calcium 8.5 Total Bilirubin 1.10 H AST 19 ALT 28 Alkaline Phosphatase 84 Total Protein 6.9 Albumin 3.6 Globulin 3.3 Albumin/Globulin Ratio 1.1 Radiography Diagnostic Testing: Clinical Impression(s) from Imaging Studies Abdomen/Pelvis CT 04/06/23 14:15 IMPRESSION: No definite acute or significant abnormality seen. Electronically Signed: Rob Logan MD at 15:17 EDT , Discharge Plan Triage Chief Complaint: Abd Pain ED Midlevel Provider: Liz Goodson ED Provider: Jeremy Garcia Dx/Rx/DC Orders Clinical Impression: Abdominal pain, Constipation, Medication refill Instructions: Abdominal Pain Prescriptions: New lisinopril 10 mg tablet 10 mg PO DAILY Qty: 14 0RF No Action lisinopril 10 mg tablet 10 mg PO DAILY Qty: 30 0RF Primary Care Provider: Care Physician,No Primary Referrals: Hunter Boykin MD [Med Staff - Active Staff] - 3-5 Days Care Physician,No Primary [Primary Care Provider] - Activity Restrictions/Additional Instructions: Please follow-up with the PCP I referred you to and return for any worsening of symptoms. You can take [id number] constipation medication/fiber supplements to help alleviate your constipation. Disposition Disposition: Home, Self Care Discharge Date/Time: 04/06/23 16:02
[2023-04-06 14:28] LABS: Absolute Lymphocyte Count 1.89 X10^3/uL (0.83-4.51); Absolute Neutrophil Count 2.6 X10^3/uL (2.0-7.7); Basophil# 0.04 X10^3/uL; Basophil% 0.8 % (0-1); Eosinophil# 0.11 X10^3/uL; Eosinophils% 2.1 % (0-5); Hematocrit 41.7 % (40-54); Hemoglobin 13.9 g/dL (13.0-16.5); Lymphocyte # 1.89 X10^3/ul (0.83-4.51); Lymphocyte % 35.9 % (19-41); Mean Corp Hgb Conc 33.3 g/dL (32-36); Mean Corpuscular Hgb 31.5 pg (27.0-32.0); Mean Corpuscular Volume 94.6 fL (80-94); Monocyte# 0.63 X10^3/uL; NRBC Flagged by Analyzer 0 % (0-5); Neutrophil # 2.59 X10^3/uL (2.7-7.7); Platelet Count 281 K/mm3 (150-450); RBC Distribution Width CV 12.2 % (11.6-14.6); RBC Distribution Width SD 42.5 fl (35.1-43.9); Red Blood Count 4.41 M/mm3 (4.6-6.2); White Blood Count 5.3 K/mm3 (4.4-11.0)
[2023-04-06] MEDS: Ketorolac 15 MG/ML Vial IV (14:29)
[2023-04-06 14:44] LABS: ALB/GLOB Ratio 1.1 RATIO (0.9-2.4); AST(SGOT) 19 U/L (15-37); Alanine Aminotransfer ALT/SGPT 28 U/L (16-61); Albumin, Serum 3.6 g/dL (3.2-5.0); Alkaline Phosphatase 84 U/L (45-117); Anion Gap 6 (5-15); BUN 17 mg/dL (7-18); BUN/Creat Ratio 17.9 RATIO (10-20); Calcium,Total 8.5 mg/dL (8.5-10.1); Chloride 108 mmol/L (98-107); Creatinine, Serum 0.95 mg/dL (0.70-1.30); EST Glomerular Filtration Rate 92 mL/min (>60); Est Glom Filt Rate - Afr Amer 111 mL/min (>60); Estimated Creatinine Clearance 78.23 ml/min; Globulin 3.3 g/dL (2.2-4.2); Glucose 112 mg/dL (74-106); Potassium 3.5 mmol/L (3.5-5.1); Protein, Total 6.9 g/dL (6.4-8.2); Sodium Level 141 mmol/L (136-145)
[2023-04-06 16:01] VITALS: BP 120/79; PULSE 74; RESP 16; O2SAT 100
== END 2023-04-06 16:02 | disposition home or self-care (01) ==
PROVIDERS: Physician Assistant; Emergency Provider Emergency Medicine; Visit Provider Emergency Medicine
DX: R10.31 Right lower quadrant pain (principal); K59.00 Constipation, unspecified; Z76.0 Encounter for issue of repeat prescription; I10 Essential (primary) hypertension; M54.9 Dorsalgia, unspecified; Z87.891 Personal history of nicotine dependence; Z79.899 Other long term (current) drug therapy
CPT/HCPCS: 74177; 80053; 85025; 96374; 99283; Q9967; A4216

== ENCOUNTER 2023-09-24 18:12 | Emergency (ER) | payer SELFPAY ==
[2023-09-24 18:14] VITALS: BP 140/95; PULSE 86; RESP 18; TEMP 36.6; O2SAT 97; BMI 38.0
--- NOTE | 2023-09-24 18:45 | ED.VIS.GI ---
HPI HPI - GI History of Present Illness Chief Complaint: Abd Pain Narrative Narrative: 43-year-old male presenting with intermittent right-sided abdominal pain for the last 3 days. He states that he was at work tonight and noticed that it is coming and going for the last 3 hours. He states he did feel nauseous with this. Denies a fever. He states that today he had a bowel movement and the pain resolved however it came back after this. 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 He gets the pain even when he is not eating. [facility] Medical History HTN (hypertension) Irregular heart beat Home Medications lisinopril 10 mg tablet 10 mg PO DAILY blood pressure #30 tabs 11/14/22 [Rx Last Taken Unknown] lisinopril 10 mg tablet 10 mg PO DAILY #14 tabs 04/06/23 [Rx Last Taken Unknown] ondansetron 4 mg disintegrating tablet 4 mg PO Q8H PRN PRN Nausea #14 tabs 09/24/23 [Rx Last Taken Unknown] Allergy/AdvReac Type Severity Reaction Status Date / Time morphine AdvReac Upset Verified 09/24/23 18:14 Stomach naproxen AdvReac Upset Verified 09/24/23 18:14 Stomach Surgical History History of dental surgery Social History Smoking Status: Former smoker substance use type: does not use ROS ROS ED Constitutional Constitutional ED: Denies chills, fever(s) or sweats Eyes Eyes: Denies blurry vision or change in vision ENT ENT ED: Denies ear pain or sore throat Cardiovascular Cardiovascular: Denies chest pain, palpitations or racing heartbeat Respiratory/Chest Respiratory/Chest: Denies cough, dyspnea or sputum Gastrointestinal Gastrointestinal: Reports abdominal pain, constipation and nausea; Denies diarrhea or vomiting Genitourinary Genitourinary ED: Denies dysuria, hematuria or urinary frequency Musculoskeletal Musculoskeletal: Denies arthralgias, myalgias or neck pain Integumentary Denies abscess, Abrasions or rash Neurologic Neurologic: Denies headache(s), paresthesias or weakness Psychiatric Psychiatric: Denies anxiety, depression, suicidal ideation or suicidal thoughts Endocrine Endocrinology: Denies polydipsia or polyuria EXAM Physical Exam Const Vital Signs: 09/24/23 18:14 09/24/23 21:29 09/24/23 22:14 Temperature 97.8 F Temperature Source Temporal Pulse Rate 86 68 Respiratory Rate 18 18 16 Blood Pressure 140/95 H Blood Pressure Mean 110 Pulse Ox 97 97 Oxygen Delivery Method Room Air Room Air Positive well nourished General Appearance ED: NAD; Negative for pallor HEENT Reports moist mucous membranes normocephalic Eyes General Eye ED: Negative for pale conjunctiva Resp normal respiratory effort and clear to auscultation bilaterally Auscultation: Negative for rales or rhonchi Cardio regular rate and regular rhythm GI non-tender Neuro CN's II-XII intact bilaterally Sensorium / Orientation: alert Motor Exam: strength 5/5 throughout Psych mental status grossly normal and thought process normal Skin General Skin Exam: Negative for jaundice or pallor MDM MDM MDM Narrative Medical decision making narrative: Patient presenting with right-sided abdominal pain. On exam he does not have this tenderness currently. His abdomen is soft and nontender. No Da Silva sign. Differential includes gastritis, GERD, acute cholelithiasis, acute cholecystitis, constipation, colitis, pancreatitis. Patient currently pain-free and does not want any medication. CBC obtained to assess white blood cell count, hemoglobin, platelets. BMP to assess renal function, electrolytes. Liver function panel to assess liver function. Lipase to assess for pancreatitis. CBC, CMP, lipase all within normal limits. Patient states he was having some pain at this point on reevaluation he was given Toradol. This did seem to help his pain. CT of the abdomen pelvis shows no acute process. Patient counseled this is likely diet related. 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 Return precautions were discussed. Impression: 1. Abdominal pain 2. Nausea Lab Data Attestation: I reviewed the patient's lab results. Labs: Laboratory Results - last 24 hr 09/24/23 18:55 WBC 7.4 RBC 4.44 L Hgb 14.0 Hct 40.5 MCV 91.2 MCH 31.5 MCHC 34.6 RDW Std Deviation 41.1 RDW Coeff of Lior 12.6 Plt Count 265 MPV 8.7 Immature Gran % (Auto) 0.300 Neut % (Auto) 54.1 Lymph % (Auto) 32.7 [place] % (Auto) 10.9 H Eos % (Auto) 1.2 Baso % (Auto) 0.8 Absolute Neuts (auto) 4.0 Absolute Lymphs (auto) 2.42 Nucleated RBC % 0 Sodium 138 Potassium 3.8 Chloride 106 Carbon Dioxide 28.0 Anion Gap 4 L BUN 13 Creatinine 1.18 Estim Creat Clear Calc 62.34 Est GFR (MDRD) Af Amer 87 Est GFR (MDRD) Non-Af 72 BUN/Creatinine Ratio 11.0 Glucose 109 H Calcium 8.5 Total Bilirubin 0.50 Direct Bilirubin 0.14 AST 19 ALT 29 Alkaline Phosphatase 77 Total Protein 7.1 Albumin 3.7 Globulin 3.4 Lipase 48 Radiography Diagnostic Testing: Clinical Impression(s) from Imaging Studies Abdomen/Pelvis CT 09/24/23 20:52 IMPRESSION: No acute findings in the abdomen or pelvis. Electronically Signed: Carlos Alberto Hauser MD at 21:47 EDT Reading Location ID and State: [address] [place] [address] Tel , Service support , Discharge Plan Triage Chief Complaint: Abd Pain ED Provider: Bobby Alarcon Dx/Rx/DC Orders Instructions: ED Abdominal Pain Unkn Cause Male... Prescriptions: New ondansetron 4 mg tablet,disintegrating 4 mg PO Q8H PRN PRN (Reason: Nausea) Qty: 14 0RF No Action lisinopril 10 mg tablet 10 mg PO DAILY Qty: 30 0RF lisinopril 10 mg tablet 10 mg PO DAILY Qty: 14 0RF Stand Alone Forms: ED Work / School Excuse Primary Care Provider: Care Physician,No Primary Referrals: Manju Chávez [facility] [Provider Group] - 3-5 Days Care Physician,No Primary [Primary Care Provider] - Disposition Disposition: Home, Self Care Discharge Date/Time: 09/24/23 22:14
[2023-09-24 19:05] LABS: Absolute Lymphocyte Count 2.42 X10^3/uL (0.83-4.51); Basophil# 0.06 X10^3/uL; Basophil% 0.8 % (0-1); Eosinophil# 0.09 X10^3/uL; Eosinophils% 1.2 % (0-5); Hematocrit 40.5 % (40-54); Lymphocyte # 2.42 X10^3/ul (0.83-4.51); Lymphocyte % 32.7 % (19-41); Mean Corp Hgb Conc 34.6 g/dL (32-36); Mean Corpuscular Hgb 31.5 pg (27.0-32.0); Mean Corpuscular Volume 91.2 fL (80-94); Mean Platelet Vol. 8.7 fl (6.2-12.0); Monocyte# 0.81 X10^3/uL; Monocyte% 10.9 % (0-10); NRBC Flagged by Analyzer 0 % (0-5); Neutrophil % 54.1 % (47-70); Platelet Count 265 K/mm3 (150-450); RBC Distribution Width CV 12.6 % (11.6-14.6); RBC Distribution Width SD 41.1 fl (35.1-43.9); Red Blood Count 4.44 M/mm3 (4.6-6.2); White Blood Count 7.4 K/mm3 (4.4-11.0)
[2023-09-24 19:23] LABS: AST(SGOT) 19 U/L (15-37); Alanine Aminotransfer ALT/SGPT 29 U/L (16-61); Albumin, Serum 3.7 g/dL (3.2-5.0); Alkaline Phosphatase 77 U/L (45-117); Anion Gap 4 (5-15); BUN 13 mg/dL (7-18); Bilirubin, Direct 0.14 mg/dL (0.00-0.30); Calcium,Total 8.5 mg/dL (8.5-10.1); Chloride 106 mmol/L (98-107); Creatinine, Serum 1.18 mg/dL (0.70-1.30); EST Glomerular Filtration Rate 72 mL/min (>60); Est Glom Filt Rate - Afr Amer 87 mL/min (>60); Estimated Creatinine Clearance 62.34 ml/min; Globulin 3.4 g/dL (2.2-4.2); Glucose 109 mg/dL (74-106); Lipase 48 U/L (13-75); Potassium 3.8 mmol/L (3.5-5.1); Protein, Total 7.1 g/dL (6.4-8.2); Sodium Level 138 mmol/L (136-145)
--- NOTE | 2023-09-24 20:52 | CT_ITS ---
INDICATION: right flank pain EXAMINATION: CT ABDOMEN AND PELVIS WITHOUT CONTRAST - CT Abdomen And Pelvis W/O Contrast Injection TECHNIQUE: Helically acquired images were obtained of the abdomen and pelvis without oral or IV contrast. A radiation dose optimization technique was used for this scan. IV Contrast dosage and agent: None. Oral contrast: None. COMPARISON: 04/06/2023 FINDINGS: LOWER CHEST: Lung bases are clear. No cardiomegaly or pericardial effusion. LIVER: Homogeneous. No focal mass. GALLBLADDER AND BILIARY TREE: No calcified gallstones. No gallbladder distension or wall edema. No intra- or extrahepatic biliary ductal dilation. PANCREAS: No focal cystic or solid mass. SPLEEN: Normal size without focal cystic or solid mass. ADRENAL GLANDS: No nodules. KIDNEYS AND URETERS: No renal calculi or hydronephrosis. PERITONEUM: No ascites or free air. BOWEL: Normal appendix. No stomach or bowel distension. No focal inflammatory change. LYMPH NODES: No enlarged mesenteric or retroperitoneal lymph nodes. VESSELS: Aorta is non-dilated. URINARY BLADDER: Unremarkable. REPRODUCTIVE ORGANS: No pelvic masses. ABDOMINAL WALL: Small fat-containing umbilical hernia. BONES: No acute or aggressive abnormality. CT/Abdomen/Pelvis without Cont IMPRESSION: No acute findings in the abdomen or pelvis. Electronically Signed: Carlos Alberto Hauser MD at 21:47 EDT ,
[2023-09-24] MEDS: Ketorolac 15 MG/ML Vial IV (20:58)
[2023-09-24 21:29] VITALS: RESP 18
[2023-09-24 22:14] VITALS: PULSE 68; RESP 16; O2SAT 97
== END 2023-09-24 22:14 | disposition home or self-care (01) ==
PROVIDERS: Emergency Provider Student in an Organized Health Care Education/Training Program; Visit Provider Student in an Organized Health Care Education/Training Program
DX: R10.9 Unspecified abdominal pain (principal); I10 Essential (primary) hypertension; Z87.891 Personal history of nicotine dependence; R11.0 Nausea
CPT/HCPCS: 74176; 80048; 80076; 83690; 85025; 96374; 99283; A4216

== ENCOUNTER 2023-12-26 14:31 | Emergency (ER) | payer SELFPAY ==
[2023-12-26 14:32] VITALS: BP 150/96; PULSE 91; RESP 18; TEMP 36.8; O2SAT 100; BMI 37.9
--- NOTE | 2023-12-26 14:43 | VDLE_ITS ---
Reason For Study: swelling Procedure LEFT This is a venous duplex using B-mode, color GSV is normal. flow and spectral Doppler. CFV is compressible, spontaneous, phasic, Exam performed portable in ED. competent, and demonstrates normal The exam was abbreviated due to the COVID 19 augmentation. protocol. FV is compressible, spontaneous, phasic, The exam was diagnostic. competent and demonstrates normal A preliminary report was called and/or faxed augmentation. to Hunter Melendrez LICENSED PROSTHETIST/ORTHOTIST-C. POP V is compressible, spontaneous, phasic, competent and demonstrates normal augmentation. T/P Trunk is compressible. PTV is compressible. LT PerV is compressible. VL/Venous Duplex US, Unilateral Interpretation Summary Deep veins of the left lower extremity are patent and compressible segmentally. There is no evidence of left lower extremity deep vein thrombosis. The left great saphenous vein anne ears patent and compressible segmentally. Ordering Physician: Hunter Melendrez Performed By: Steve Stone RVT
--- NOTE | 2023-12-26 14:47 | EX.ED.DYSGE1 ---
HPI <AMY Dooley - Last Filed: 12/26/23 16:30> History of Present Illness Chief Complaint: Lower Extremity Injury Narrative Narrative: Patient is a 43-year-old male with history of hypertension however has been out of his lisinopril 10 mg for greater than 6 months. Patient presents to the emergency department for complaints of shooting chest pain has been ongoing for 2 days, as well as 2 days of left calf pain. Patient states that it is worse with movement, states it feels like it is going to explode . Patient states that it is getting more pronounced and he is here for evaluation. Denies any history of blood clots in the legs or lungs, denies any recent travel or surgeries. Patient currently does not have a PCP. PFSH <AMY Dooley - Last Filed: 12/26/23 16:30> [facility] Medical History HTN (hypertension) Irregular heart beat Home Medications lisinopril 10 mg tablet 10 mg PO DAILY blood pressure #30 tabs 11/14/22 [Rx Last Taken Unknown] lisinopril 10 mg tablet 10 mg PO DAILY #14 tabs 04/06/23 [Rx Last Taken Unknown] ondansetron 4 mg disintegrating tablet 4 mg PO Q8H PRN PRN Nausea #14 tabs 09/24/23 [Rx Last Taken Unknown] lisinopril 10 mg tablet 10 mg PO DAILY #30 tabs 12/26/23 [Rx Last Taken Unknown] Allergy/AdvReac Type Severity Reaction Status Date / Time morphine AdvReac Upset Verified 12/26/23 14:32 Stomach naproxen AdvReac Upset Verified 12/26/23 14:32 Stomach Surgical History History of dental surgery Social History Smoking Status: Former smoker substance use type: does not use ROS <AMY Dooley - Last Filed: 12/26/23 16:30> ROS ED ROS Narrative Constitutional: Negative for fever, chills, weight loss, weakness Eyes: Negative for vision loss, vision change, double vision ENT: Negative for any sore throat, ear pain, congestion Cardiovascular: Negative for any tightness, palpitations. Positive for chest pain Respiratory: Negative for any cough, sputum production, hemoptysis, dyspnea, dyspnea on exertion, orthopnea Gastrointestinal: Negative for any abdominal pain, nausea, vomiting, diarrhea, constipation, blood in stool, blood in vomit : Negative for any urinary frequency, dysuria, retention, blood in urine Muscle skeletal: Negative for any myalgias, arthralgias, neck pain, back pain. Positive for left calf pain Neurological: Negative for any headache, syncope, paresthesias, dizziness Skin: Negative for any rashes, lumps, itching, abrasions, lacerations Psychiatric: Negative for any depression, anxiety, stress, suicidal ideation, homicidal ideation Hematologic: Negative for any easy bruising, excessive bruising, easy bleeding Allergies: Negative for any eczema, hives, rash EXAM <AMY Dooley - Last Filed: 12/26/23 16:30> Physical Exam Narrative Exam Narrative: Vital signs reviewed. HEET: Head normocephalic atraumatic, TMs clear bilaterally. Posterior pharynx is clear, moist mucous membranes. Nares clear bilaterally. Neck: Supple with no lymphadenopathy or tenderness. No signs of meningismus. Cardiac: Regular rate and rhythm no murmurs gallops or rubs, equal peripheral pulses bilaterally. Respiratory: Lungs clear to auscultation bilaterally. No chest tenderness. Abdomen: Soft, nontender, nondistended. No abdominal bruit or pulsatile masses. No hepatosplenomegaly Extremities: No peripheral edema, no signs of gross trauma or deformity. Active full range of motion of all extremities. I do not appreciate any swelling to the left calf, there is no redness, +2 pedal pulse. Neuro: Cranial nerves II through XII intact, no focal neurological deficits. Skin: Clean dry and intact with no rash, purpura, petechiae, vesicles or pustules. Backs/flank: No CVA tenderness, no midline spinal tenderness, no deformity. Psych: Normal mood and affect. No SI, HI or acute psychosis. Const Vital Signs: 12/26/23 14:32 Temperature 98.3 F Temperature Source Temporal Pulse Rate 91 Respiratory Rate 18 Blood Pressure 150/96 H Blood Pressure Mean 114 Pulse Ox 100 Oxygen Delivery Method Room Air Positive well nourished and well developed General Appearance ED: well developed <Dr. Jeison Lennon MD - Last Filed: 12/26/23 17:03> Physical Exam Const Vital Signs: 12/26/23 14:32 Temperature 98.3 F Temperature Source Temporal Pulse Rate 91 Respiratory Rate 18 Blood Pressure 150/96 H Blood Pressure Mean 114 Pulse Ox 100 Oxygen Delivery Method Room Air MDM <Hunter MendozaAMY pozo - Last Filed: 12/26/23 16:30> [facility] Lab Data Labs: Laboratory Results - last 24 hr 12/26/23 15:00 WBC 6.8 RBC 4.82 Hgb 14.8 Hct 43.9 MCV 91.1 MCH 30.7 MCHC 33.7 RDW Std Deviation 41.2 RDW Coeff of Lior 12.7 Plt Count 309 MPV 8.7 Immature Gran % (Auto) 0.300 Neut % (Auto) 59.2 Lymph % (Auto) 28.2 [place] % (Auto) 10.4 H Eos % (Auto) 1.2 Baso % (Auto) 0.7 Absolute Neuts (auto) 4.1 Absolute Lymphs (auto) 1.93 Nucleated RBC % 0 Sodium 137 Potassium 3.8 Chloride 108 H Carbon Dioxide 26.0 Anion Gap 3 L BUN 16 Creatinine 1.07 Estim Creat Clear Calc 88.58 Est GFR (MDRD) Af Amer 97 Est GFR (MDRD) Non-Af 80 BUN/Creatinine Ratio 15.0 Glucose 124 H Calcium 9.2 Troponin I High Sens 4 Radiography Diagnostic Testing: Clinical Impression(s) from Imaging Studies Chest X-Ray 12/26/23 15:17 IMPRESSION: Normal x-ray examination of the chest. Electronically Signed: Goran Lobato MD at 15:36 EST , Treatment and Re-Evaluation :: Patient appears generally well, patient appears nontoxic, vital signs are stable. Presenting to the emergency department with complaints of left calf pain as well as some shooting chest pains that been ongoing the last 2 days. Differential diagnosis includes ACS, VA, pneumonia, blood clot to the left calf, muscle strain. Patient will receive a venous duplex of the left calf, as well as a chest x-ray and a cardiac workup including CBC BMP as well as a troponin. Patient has been out of his lisinopril for 6 months currently does not have a doctor. My plan will be to place the patient back on his lisinopril 10 mg and give him follow-up for a PCP. Patient's venous duplex of the left lower extremity was unremarkable, negative for any DVT. Patient's CBC was unremarkable, chemistries was unremarkable, troponin was negative. Two-view chest x-ray interpreted by ER physician was negative. At this time, is no evidence of any ACS, VA, DVT. Patient is likely suffering from a muscle skeletal strain. Patient is happy with plan of care, she will receive his lisinopril 10 mg daily, I will give him 2 refills. I will give him a referral to PCP. All questions were answered, instructed return for any worsening symptoms. Patient stable for discharge. <Dr. Jeison Lennon MD - Last Filed: 12/26/23 17:03> [facility] MDM Narrative Medical decision making narrative: I have personally performed a face to face assessment of the patient and have reviewed the BIJU Note. I performed a substantive portion of the visit including all aspects of the following. My stanley findings include: History: Patient complains of 2 issues. 1 is he gets small shocks or stabbing little sensations that last just moments in different areas of his chest. He is not having it now. No dyspnea. He also complains that his left calf feels like it is going to explode on him. He does not know of any injury. Exam: Patient awake alert no acute distress. Chest is nontender. No lesions. Heart is regular. Lungs are clear. Saturations normal. Abdomen benign. Examination of his leg is also benign and there is no swelling tenderness or asymmetry. No distended veins. Patient CBC electrolytes and troponin are negative. Ultrasound is negative. Patient's chest x-ray is negative. I think patient is safe for discharge. Medical Decision Making: Lab Data Attestation: I reviewed the patient's lab results. Labs: Laboratory Results - last 24 hr 12/26/23 15:00 WBC 6.8 RBC 4.82 Hgb 14.8 Hct 43.9 MCV 91.1 MCH 30.7 MCHC 33.7 RDW Std Deviation 41.2 RDW Coeff of Lior 12.7 Plt Count 309 MPV 8.7 Immature Gran % (Auto) 0.300 Neut % (Auto) 59.2 Lymph % (Auto) 28.2 [place] % (Auto) 10.4 H Eos % (Auto) 1.2 Baso % (Auto) 0.7 Absolute Neuts (auto) 4.1 Absolute Lymphs (auto) 1.93 Nucleated RBC % 0 Sodium 137 Potassium 3.8 Chloride 108 H Carbon Dioxide 26.0 Anion Gap 3 L BUN 16 Creatinine 1.07 Estim Creat Clear Calc 88.58 Est GFR (MDRD) Af Amer 97 Est GFR (MDRD) Non-Af 80 BUN/Creatinine Ratio 15.0 Glucose 124 H Calcium 9.2 Troponin I High Sens 4 Radiography Diagnostic Testing: Clinical Impression(s) from Imaging Studies Chest X-Ray 12/26/23 15:17 IMPRESSION: Normal x-ray examination of the chest. Electronically Signed: Goran Lobato MD at 15:36 EST , Discharge Plan Triage Chief Complaint: Lower Extremity Injury Other Complaint: Chest Other ED Midlevel Provider: Hunter Melendrez ED Provider: Jeison Lennon Dx/Rx/DC Orders Clinical Impression: Strain of calf muscle, Chest pain Instructions: ED Chest Pain, Uncertain Cause, ED Muscle Strain, Extremity Prescriptions: New lisinopril 10 mg tablet 10 mg PO DAILY Qty: 30 2RF No Action lisinopril 10 mg tablet 10 mg PO DAILY Qty: 30 0RF lisinopril 10 mg tablet 10 mg PO DAILY Qty: 14 0RF ondansetron 4 mg tablet,disintegrating 4 mg PO Q8H PRN PRN (Reason: Nausea) Qty: 14 0RF Stand Alone Forms: ED Work / School Excuse Primary Care Provider: Care Physician,No Primary Referrals: Alyson Lynn MD [Med Staff - Stave Hewer] - Care Physician,No Primary [Primary Care Provider] - Disposition Disposition: Home, Self Care Discharge Date/Time: 12/26/23 16:43
[2023-12-26 15:11] LABS: Absolute Lymphocyte Count 1.93 X10^3/uL (0.83-4.51); Absolute Neutrophil Count 4.1 X10^3/uL (2.0-7.7); Basophil# 0.05 X10^3/uL; Basophil% 0.7 % (0-1); Eosinophil# 0.08 X10^3/uL; Eosinophils% 1.2 % (0-5); Hematocrit 43.9 % (40-54); Hemoglobin 14.8 g/dL (13.0-16.5); Lymphocyte # 1.93 X10^3/ul (0.83-4.51); Lymphocyte % 28.2 % (19-41); Mean Corp Hgb Conc 33.7 g/dL (32-36); Mean Corpuscular Hgb 30.7 pg (27.0-32.0); Mean Corpuscular Volume 91.1 fL (80-94); Mean Platelet Vol. 8.7 fl (6.2-12.0); Monocyte# 0.71 X10^3/uL; Monocyte% 10.4 % (0-10); NRBC Flagged by Analyzer 0 % (0-5); Neutrophil # 4.05 X10^3/uL (2.7-7.7); Neutrophil % 59.2 % (47-70); Platelet Count 309 K/mm3 (150-450); RBC Distribution Width CV 12.7 % (11.6-14.6); RBC Distribution Width SD 41.2 fl (35.1-43.9); Red Blood Count 4.82 M/mm3 (4.6-6.2); White Blood Count 6.8 K/mm3 (4.4-11.0)
--- NOTE | 2023-12-26 15:17 | RAD_ITS ---
STUDY: X-RAY CHEST REASON FOR EXAM: Male, 43 years old. Chest pain TECHNIQUE: PA and lateral views of the chest. COMPARISON: Comparison is made with prior study August 15, 2022. FINDINGS: The lungs are clear and expanded. There is no demonstrated pleural abnormality. Normal size heart. Normal mediastinum and rachel. Normal visualized pulmonary arteries. Normal visualized aortic arch and descending thoracic aorta. Normal visualized thoracic spine. Normal visualized ribs, clavicles, and shoulders. There is no demonstrated abnormality of the visualized soft tissue structures of the upper abdomen. RAD/Chest PA and Lateral IMPRESSION: Normal x-ray examination of the chest. Electronically Signed: oGran Lobato MD at 15:36 EST ,
[2023-12-26 15:35] LABS: Anion Gap 3 (5-15); BUN 16 mg/dL (7-18); Calcium,Total 9.2 mg/dL (8.5-10.1); Chloride 108 mmol/L (98-107); Creatinine, Serum 1.07 mg/dL (0.70-1.30); EST Glomerular Filtration Rate 80 mL/min (>60); Est Glom Filt Rate - Afr Amer 97 mL/min (>60); Estimated Creatinine Clearance 88.58 ml/min; Glucose 124 mg/dL (74-106); Potassium 3.8 mmol/L (3.5-5.1); Sodium Level 137 mmol/L (136-145); Troponin-I HS 4 pg/mL (3.0-78.0)
--- OUTSIDE RECORDS SUMMARY | 2023-12-26 18:48 | XMS RPT_ITS | CCD ---
Author Name Unknown Address [address] [place] [id number] Organization [facility] Care Team Providers Care Manager It Training Name Role Phone Mili RODRIGUES.SEROLOGIST, DNP, Guilherme Primary Care Provider Unavailable Primary Care Provider Unavailabl e Allergies Allergy Classification Reported Allergen(s) Allergy Type Date of Onset Reaction(s) Facility (5 sources) Morphine Drug Allergy 09-01-2021 Vomiting [facility] Work Phone: (5 sources) Naproxen Drug Allergy 01-25-2009 GI Upset [facility] Work Phone: Medications Current Medications Medication Drug Class(es) Dates Sig (Normalized) Sig (Original) lisinopril 10 mg oral tablet (4 sources) Angiotensin Converting Enzyme Inhibitor Start: 07-26-2022 End: 02-13-2023 take 1 tablet by mouth once daily lisinopril (ZESTRIL, PRINIVIL) 10 mg tablet Indications: Hypertension, essential Take 1 tablet by mouth once daily. For blood pressure 90 tablet 0 11/15/2022 02/13/2023 Active Problems Active Problems Problem Classification Problem Date Documented Da te Episodic/Chronic Essential hypertension (9 sources) Essential hypertension; Translations: [Essential (primary) hypertension] Onset: 02-06-2022 02-06-2022 Chronic Nonspecific chest pain (5 sources) Atypical chest pain; Translations: [Other chest pain] 12-06-2020 Episodic Other circulatory disease (5 sources) Elevated blood pressure; Translations: [Elevated blood-pressure reading, without diagnosis of hypertension] 12-06-2020 Episodic Other nutritional; endocrine; and metabolic disorders (5 sources) Obese class I; Translations: [Obesity, unspecified] Onset: 02-06-2022 02-06-2022 Chronic Past or Other Problems Problem Classification Problem Date Documented Da te Episodic/Chronic Abdominal pain (5 sources) Right upper quadrant pain; Translations: [Right upper quadrant pain] Onset: 12-06-2020 12-06-2020 Episodic Results Test Name Value Interpretation Reference Range Facil ity Encounters Encounter Date Encounter Type Care Provider Facility Start: 11-12-2022 Refill Ranjit rock MD Work Phone: [facility] Procedures Date Procedure Procedure Detail Performing Clinician Start: 02-05-2022 Adult depression screening assessment Kev Leungl [employer] Work Phone: Plan of Treatment Date Care Activity Detail Author Start: 12-13-2025 LIPID SCREEN LIPID SCREEN [facility] Start: 02-06-2023 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 PACO DISEASE VISIT ANNUAL PCP TEAM CHRONIC DISEASE VISIT [facility] Start: 02-06-2023 BP CONTROLLED (<130/80) BP CONTROLLE D (<130/80) [facility] Start: 02-06-2023 COVID-19 VACCINE (#1) COVID-19 VACCI NE (#1) [facility] Immunizations Immunization Date Immunization Notes Care Provider Jinny mendez 01-25-2009 tetanus toxoid, redu александр diphtheria toxoid, and acellular pertussis vaccine, adsorbed Kevmakenna Leungl [employer] Work Phone: [facility] Social History Date Type Detail Facility Start: 09-28-2020 Tobacco smoking stat us NHIS Ex-smoker [facility] Work Phone: End: 12-26-2019 History of tobacco use Current smoker [facility] Work Phone: End: 12-26-2019 History of tobacco use Cigarette Smoker [facility] Work Phone: Start: 02-06-2022 Alcohol intake Current non-dr line tender [place] of alcohol (finding) [facility] Start: 12-05-2020 End: 02-05-2022 History SDOH Alcohol Frequency 1 [facility] Start: 02-05-2022 History SDOH Alcohol Std Drinks 98 [facility] Start: 02-05-2022 History SDOH Social Connections Membership 2 [facility] Start: 02-05-2022 History SDOH Social Connections Living 7 [facility] Start: 02-05-2022 History SDOH Stress 5 [facility] Start: 02-05-2022 History SDOH Financial 3 [facility] Start: 10-25-2020 Education 12 [facility] Start: 1980 Sex Assigned At Male C [facility] Start: 09-28-2020 Cigarettes smoked current (pack per day) - Reported 3 [facility] Start: 09-28-2020 Tobacco use and exposure Smoke less tobacco non-user [facility] Clinical Notes 03-21-2021 to 11-15-2022 Telephone Encounter - Ranjit Escalona MD - 11/15/2022 3:07 PM ESTTelephone Encounter - Echo Hodgson LPN - 11/13/2022 9:37 AM ESTTelephone Encounter - Jesusita Carcamo - 11/12/2022 12:12 PM EST Note Date & Type Note Facility 11-15-2022 Miscellaneous Notes OK to refill as ordered Ranjit Escalona MD Pt calls from work in regards to request for lisinopril. Pt reports in the last three months he has lost everything. Pt reports he is finally back to work and was calling from work. Pt reports at this time he does not have his phone but can check messages through . Pt reports since he is back to work he is going to re-establish since he has not established with anyone since Guilherme Garces left. Pt reports he has been out of lisinopril x 3 days and is not feeling well without it. Pt is asking if he could please have a refill and pt will try to get re-established. Send provider message through [facility] to pt. Echo Hodgson LPN Last refill 07/26/22 Qty: 90 with 0 refills TAD 02/06/22 NOV none scheduled. Pt needs to est care. Sent pt a message via My Chart regarding this. Pt was also sent message 07/14/22. Brittny Hernandez LPN Patient has been identified by name and date of : Yes Requested Prescriptions Pending Prescriptions Disp Refills lisinopril (ZESTRIL, PRINIVIL) 10 mg tablet 90 tablet 0 Sig: Take 1 tablet by mouth once daily. For blood pressure RX INSTRUCTIONS: Patient aware RX will be sent to pharmacy. No need to notify patient. Jesusita Carcamo documented in this encounter [facility] 11-13-2022 Miscellaneous Notes Being addressed in another encounter. Brittny Hernandez LPN documented in this encounter [facility] 08-08-2022 Miscellaneous Notes [facility] message read 07/25/22. Will close TE at this time. Removed Mili as PCP as well. Bela Hathaway MA 2 nd attempt left message to return call in regards to PCP left clinic and needs to schedule a transferring care appt. My chart message also sent. 1st attempt left message to return call in regards to PCP left clinic and needs to schedule a transferring care appt. Pt needs appt. Patient MyChart message requesting the following refill. Requested Prescriptions Pending Prescriptions Disp Refills lisinopril (ZESTRIL, PRINIVIL) 10 mg tablet 90 tablet 1 Sig: Take 1 tablet by mouth once daily. For blood pressure Patient last appointment: Patient Phone numbers: There are no phone numbers on file. Request is for script(s) to be escript to pharmacy. Vale Newman documented in this encounter [facility] 04-11-2022 Miscellaneous Notes My chart message sent to patient regarding refill request. Vilma Chavez LPN Advise patient the the script he picked up from [facility] back in Dec 2021 was for 90 days with one refill. He should have one refill on it and just needs to call the pharmacy to get the refill. He should also make an appt to transfer care to either Dr. Shaikh, Dr. Sullivan or Dr. Escalona since Johnnie will no longer be here after 05/25/2022. Please see Infogramhart message Patient has been identified by name and date of : Yes Patient phones for refill(s): Refused Prescriptions Disp Refills lisinopril (ZESTRIL, PRINIVIL) 10 mg tablet 90 tablet 1 Sig: Take 1 tablet by mouth once daily. For blood pressure JACOB: No Refused By: ROZINA DESAI Reason for Refusal: Records indicate that there is a valid prescription at the pharmacy Date of last office visit in primary care: 02/06/22 Please advise. Thank you. Rhonda De LPN documented in this encounter [facility] 02-06-2022 Note HNO ID: [id number] Author: Guilherme Garces APRN.SEROLOGIST, DNP Service: ? Author Type: Nurse Practitioner Type: Progress Notes Filed: 02/06/2022 10:04 AM Note Text: Chief Complaint Patient presents with: Palpitations HPI Artie Carney is a 41 year old male who presents here today for a follow up exam. Presents to the [facility] as an established patient of Guilherme Garces DNP.[facility] ER follow up: Well known patient of mine. Previously seen at [facility] emergency room for chest pain and palpitations. Has had multiple ER visits over the past year for CP and pounding heart/palptations. Describes the pain as sharp. Pain has been on and off for the past several years. Denies prior history of DVT or PE. Has a history of hypertension that is not well controlled. Extensive cardiac work up has been completed at ER and in office. No further work-up was recommended and he was instructed to take anti-inflammatories for the chest pain. Continues to have intermittent atypical chest pain and palpitations. He was recently seen at the ER again on January 27 for vomiting, diarrhea and palpitations. EKG, lab work and head CT obtained which were all unremarkable. Continues to feel heart palpitating or racing. These episodes occur once or twice a day and last approximately 30 minutes. He is a non-smoker but lives with his father who smokes socially is exposed to secondhand smoke frequently. Typically uses urgent care or ER care for his medical care. Denies current active chest pain. Started on lisinopril for elevated blood pressure has recently been compliant. Blood pressure today is 114/76. Denies high blood pressure readings. Does monitor his blood pressure at home. Past medical history, appointments, medications, allergies reviewed 02/06/2022 Previous Medical History PAST MEDICAL HISTORY Diagnosis Date - Atypical chest pain - Elevated blood pressure reading - Hypertension, essential 02/06/2022 - Obesity, Class I, BMI 30-34.9 02/06/2022 - Painful respiration pleurisy Previous Surgical History PAST SURGICAL HISTORY Procedure Laterality Date - PAST SURGICAL HISTORY OF teeth extractions Family History FAMILY HISTORY Problem Relation Age of Onset - other (Gallbladder cancer) Mother - None Father - No Known Problems Maternal Grandmother - No Known Problems Maternal Grandfather - other (Brain tumor) Paternal Grandmother - No Known Problems Paternal Grandfather Patient Allergies ALLERGIES Allergen Reactions - Naproxen GI Upset - Morphine Vomiting dizziness Current Medications Current Outpatient Medications on File Prior to Visit Medication Sig - cyclobenzaprine (FLEXERIL) 10 mg tablet Take 1 tablet by mouth three times daily as needed for Muscle Spasm. - uyioyveuidllk-tpsynxhhstnh-tifg ine (PHENERGAN VC-CODEINE) 5-6.25-10 mg/5 mL ORAL Syrp Take 5 mL by mouth every 4 hours as needed (cough). No current facility-administered medications on file prior to visit. Social History Social History Tobacco Use - Smoking status: Former Smoker Packs/day: 3.00 Years: 10.00 Pack years: 30.00 Types: Cigarettes Quit date: 12/26/2019 Years since quittin.1 - Smokeless tobacco: Never Used - Tobacco comment: june 2005. Vaping Use - Vaping Use: Never used Substance Use Topics - Alcohol use: No - Drug use: No Comment: none since 2004 marijuana Review of Symptoms GENERAL: No unintentional weight loss, malaise or fevers. HEENT: Negative for frequent headaches No significant change in vision. NECK: Negative for lumps, pain and significant neck swelling RESPIRATORY: No wheezing, dyspnea or shortness of breath CARDIOVASCULAR: Occ Atypical chest pain. No leg swelling. + palpitations GI: No nausea, vomiting, or diarrhea. MUSCULOSKELETAL: Negative for generalized joint pain EXAM: BP 114/76 Pulse 78 Resp 14 Wt 90.3 kg (199 lb) SpO2 100% BMI 36.40 kg/m? General Appearance: Well appearing, alert, in no acute distress, well-hydrated, well nourished. obese Skin: Skin color, texture, turgor normal, no suspicious rashes or lesions. Head: Normocephalic, no masses, lesion Eyes: Anicteric sclera. Neck: Supple, no adenopathy; thyroid enlarged bilaterally, no bruits. Lymph Nodes: No cervical lymphadenopathy, No supraclavicular lymphadenopathy Lungs: Lungs clear to auscultation. No wheezing, rhonchi, rales. Heart: RRR without murmur, gallop, or rubs. No ectopy. Normal S1 and S2. Abdomen: Abdomen soft, non-tender. No masses, organomegaly. No epigastric tenderness. No upper quadrant abdominal tenderness. Extremities: No deformities, edema, skin discoloration. Good capillary refill. MSK: FROM of upper and lower extremities. No joint swelling or redness. Peripheral Pulses: Normal - radial and carotid 2+ Psych: Attitude - Cooperative, easily engaged in conversation Appearance - poor hygiene and grooming Affect - Euthymic (normal mood), Mental status: Alert (more content not included)... [facility] 09-04-2021 Note HNO ID: [id number] Author: Guilherme Garces APRN.DIGNA BARRAGAN Service: ? Author Type: Nurse Practitioner Type: Progress Notes Filed: 09/04/2021 5:19 PM Note Text: Chief Complaint Patient presents with: Acute Visit: right side chest tightness HPI Artie Carney is a 40 year old male who presents here today for a established physical exam. Presents to the [facility] as an established patient of Guilherme Garces DNP.SEROLOGIST Well known patient of mine. Previously seen in November for an emergency room follow-up at [facility] for chest pain or leg pain. Seen again recently at [facility] approximately 2 weeks ago for continued intermittent chest pain. Describes the pain as sharp. Pain has been on and off for the past several years. Denies prior history of DVT or PE. Has a history of hypertension that is not well controlled. Twelve-lead EKG was completed which was normal sinus rhythm with a ventricular rate of 70. CBC and BMP were normal. D-dimer and troponin within normal limits. No further work-up was recommended and he was instructed to take anti-inflammatories for the chest pain. Continues to have intermittent atypical chest pain. Several years of elevated blood pressure. Feels heart palpitating or racing. These episodes occur once or twice a day and last approximately 30 minutes. He is a non-smoker but lives with his father who smokes socially is exposed to secondhand smoke frequently. Otherwise no current prescription medications. Typically uses urgent care or ER care for his medical care. Denies current active chest pain. Blood pressure elevated today. Additionally he was seen in our urgent care last week for continued ongoing right-sided chest pain. Was referred to me as his primary care provider. Past medical history, appointments, medications, allergies reviewed 09/04/2021 Previous Medical History PAST MEDICAL HISTORY Diagnosis Date - Atypical chest pain - Elevated blood pressure reading - Painful respiration pleurisy Previous Surgical History PAST SURGICAL HISTORY Procedure Laterality Date - PAST SURGICAL HISTORY OF teeth extractions Family History FAMILY HISTORY Problem Relation Age of Onset - other (Gallbladder cancer) Mother - None Father - No Known Problems Maternal Grandmother - No Known Problems Maternal Grandfather - other (Brain tumor) Paternal Grandmother - No Known Problems Paternal Grandfather Patient Allergies ALLERGIES Allergen Reactions - Naproxen GI Upset - Morphine Vomiting dizziness Current Medications Current Outpatient Medications on File Prior to Visit Medication Sig - cyclobenzaprine (FLEXERIL) 10 mg tablet Take 1 tablet by mouth three times daily as needed for Muscle Spasm. - ucuejchcyzoxi-dnafvfncjubh-swpc ine (PHENERGAN VC-CODEINE) 5-6.25-10 mg/5 mL ORAL Syrp Take 5 mL by mouth every 4 hours as needed (cough). No current facility-administered medications on file prior to visit. Social History Social History Tobacco Use - Smoking status: Former Smoker Packs/day: 3.00 Years: 10.00 Pack years: 30.00 Types: Cigarettes Quit date: 12/26/2019 Years since quittin.6 - Smokeless tobacco: Never Used - Tobacco comment: june 2005. Vaping Use - Vaping Use: Never used Substance Use Topics - Alcohol use: No - Drug use: No Comment: none since 2004 marijuana Review of Symptoms GENERAL: No unintentional weight loss, malaise or fevers. HEENT: Negative for frequent headaches No significant change in vision. NECK: Negative for lumps, pain and significant neck swelling RESPIRATORY: No wheezing, dyspnea or shortness of breath CARDIOVASCULAR: Atypical chest pain. No leg swelling. + palpitations GI: No nausea, vomiting, or diarrhea. MUSCULOSKELETAL: Negative for generalized joint pain EXAM: BP 140/86 Pulse 78 Resp 20 Wt 83.5 kg (184 lb) SpO2 100% BMI 33.65 kg/m? General Appearance: Well appearing, alert, in no acute distress, well-hydrated, well nourished. obese Skin: Skin color, texture, turgor normal, no suspicious rashes or lesions. Head: Normocephalic, no masses, lesion Eyes: Anicteric sclera. Neck: Supple, no adenopathy; thyroid enlarged bilaterally, no bruits. Lymph Nodes: No cervical lymphadenopathy, No supraclavicular lymphadenopathy Lungs: Lungs clear to auscultation. No wheezing, rhonchi, rales. Heart: RRR without murmur, gallop, or rubs. No ectopy. Normal S1 and S2. Abdomen: Abdomen soft, non-tender. No masses, organomegaly. No epigastric tenderness. No upper quadrant abdominal tenderness. Extremities: No deformities, edema, skin discoloration. Good capillary refill. MSK: FROM of upper and lower extremities. No joint swelling or redness. Peripheral Pulses: Normal - radial and carotid 2+ Psych: Attitude - Cooperative, easily engaged in conversation Appearance - average hygiene and grooming is scruffy/rumpled. Affect - Euthymic (normal mood), (more content not included)... [facility] 09-04-2021 Note HNO ID: [id number] Author: Senthil Castle MD Service: Interventional Cardiology Author Type: Physician Type: Procedures Filed: 11/23/2021 7:45 AM Note Text: Patient Name: Artie Carney : 1980 Ordering Provider: Guilherme Garces Indication: R00.2 Palpitations Type of Monitor: Extended Monitoring-Zio Patch Enrollment Dates: 10/25/2021-11/08/2021 [facility] 09-01-2021 Note HNO ID: [id number] Author: Imelda Bailey APRN.YUNG Service: ? Author Type: Nurse Practitioner Type: Progress Notes Filed: 09/01/2021 6:50 AM Note Text: HPI Artie Carney is a 41 year old male who presents today for CC of chest palpitation, feeling like it is fluttering. He denies any chest pain, shortness of breath, or difficulty breath. He denies any throat swelling. He states he was told his thyroid is elevated, and needed further testing, and wearing of zio patch. He never followed through with the testing. There were no vitals taken for this visit. Social History Tobacco Use - Smoking status: Former Smoker Packs/day: 3.00 Years: 10.00 Pack years: 30.00 Types: Cigarettes Quit date: 12/26/2019 Years since quittin.6 - Smokeless tobacco: Never Used - Tobacco comment: june 2005. Vaping Use - Vaping Use: Never used Substance Use Topics - Alcohol use: No - Drug use: No Comment: none since 2004 marijuana PAST MEDICAL HISTORY Diagnosis Date - Atypical chest pain - Elevated blood pressure reading - Painful respiration pleurisy I have confirmed and edited as necessary, the [facility] REVIEW OF SYSTEMS GENERAL: No weight loss, malaise or fevers HEENT: Negative for frequent or significant headaches, No changes in hearing or vision, no nose bleeds or other nasal problems NECK: Negative for lumps, goiter, pain and significant neck swelling RESPIRATORY: Negative for cough, hemoptysis, wheezing, COPD, dyspnea or shortness of breath CARDIOVASCULAR: Negative for chest pain, leg swelling, hypertension, CHF or palpitations, positive for sensation of palpitations no Physical Exam Vitals and nursing note reviewed. Constitutional: Appearance: Normal appearance. HENT: Head: Normocephalic and atraumatic. Mouth/Throat: Mouth: Mucous membranes are moist. Pharynx: Oropharynx is clear. Uvula midline. Cardiovascular: Rate and Rhythm: Normal rate and regular rhythm. Heart sounds: Normal heart sounds. Pulmonary: Effort: Pulmonary effort is normal. Breath sounds: Normal breath sounds. Skin: General: Skin is warm and dry. Neurological: General: No focal deficit present. Mental Status: He is alert and oriented to person, place, and time. ASSESSMENT/PLAN: 1. Palpitations - ICD9: 785.1, ICD10: R00.2 MDM: Patient appears stable, not toxic, no signs of distress. No arrhythmia or tachycardia heard on auscultation Follow up set up with PCP on Saturday Patient verbalized understanding * Seek medical care immediately, call 911, go to ER if you have chest pain, difficulty breathing, shortness of breath, inability to swallow. Diagnosis and treatment plan were discussed and questions were answered to the patient's satisfaction. Pt acknowledged understanding of concepts and follow up plan. Specific signs and symptoms that would indicate the need for higher level of care were discussed in detail warranting prompt ER evaluation. Imelda Bailey APRN.YUNG [facility] 03-21-2021 Note HNO ID: [id number] Author: Guilherme Garces APRN.DIGNA BARRAGAN Service: ? Author Type: Nurse Practitioner Type: Progress Notes Filed: 03/21/2021 10:21 PM Note Text: Chief Complaint No chief complaint on file. EDIL Carney is a 40 year old male who presents here today for a established physical exam. Presents to the [facility] as an established patient of Guilherme Garces DNP.YUNG I had previously seen in November for an emergency room follow-up at [facility] for chest pain or leg pain. Presented to the emergency room [facility] on December 02 for chest pain and left calf pain. Has had numerous ER visits over the year for atypical chest pain and GI issues. On December 02 had intermittent chest pain that was stabbing in also complained of left calf pain that have been going on since September. Pain is also sharp in his left calf. Denies any trauma. Work-up included a twelve-lead EKG which was sinus at 78 with no acute or ischemic changes identified. It was compared to an EKG completed in June 2020 which was unchanged. Troponin was negative, D-dimer was negative. Chemistry showed a BUN of 21. CBC was within normal range. Left lower extremity Doppler ultrasound was completed and was negative for any signs of DVT. Chest x-ray was completed and was unremarkable. Continues to have intermittent atypical chest pain. Several years of elevated blood pressure and chronic abdominal pain that is in the right upper quadrant. Feels heart palpitating or racing. Recently he was at the store and felt his heart palpitating and racing. Was concerned so he ended up leaving the store. These episodes occur once or twice a day and last approximately 30 minutes. Complains of occasional lightheadedness with these episodes. He is a non-smoker but lives with his father who smokes socially is exposed to secondhand smoke frequently. Otherwise no current prescription medications. Typically uses urgent care or ER care for his medical care. Denies current active chest pain, right upper quadrant pain. Blood pressure elevated today. Past medical history, appointments, medications, allergies reviewed 03/21/2021 Previous Medical History PAST MEDICAL HISTORY Diagnosis Date - Atypical chest pain - Elevated blood pressure reading - Painful respiration pleurisy Previous Surgical History PAST SURGICAL HISTORY Procedure Laterality Date - PAST SURGICAL HISTORY OF teeth extractions Family History FAMILY HISTORY Problem Relation Age of Onset - other (Gallbladder cancer) Mother - None Father - No Known Problems Maternal Grandmother - No Known Problems Maternal Grandfather - other (Brain tumor) Paternal Grandmother - No Known Problems Paternal Grandfather Patient Allergies ALLERGIES Allergen Reactions - Naproxen GI Upset Current Medications Current Outpatient Medications on File Prior to Visit Medication Sig - cyclobenzaprine (FLEXERIL) 10 mg tablet Take 1 tablet by mouth three times daily as needed for Muscle Spasm. - vxnbbudjhxrsn-vlldoaoifktz-zdae ine (PHENERGAN VC-CODEINE) 5-6.25-10 mg/5 mL ORAL Syrp Take 5 mL by mouth every 4 hours as needed (cough). No current facility-administered medications on file prior to visit. Social History Social History Tobacco Use - Smoking status: Former Smoker Packs/day: 3.00 Years: 10.00 Pack years: 30.00 Types: Cigarettes Quit date: 12/26/2019 Years since quittin.2 - Smokeless tobacco: Never Used - Tobacco comment: june 2005. Vaping Use - Vaping Use: Never used Substance Use Topics - Alcohol use: No - Drug use: No Comment: none since 2004 marijuana Review of Symptoms GENERAL: No unintentional weight loss, malaise or fevers. HEENT: Negative for frequent or significant headaches No significant change in vision. No blurry vision, double vision, or vision loss. NECK: Negative for lumps, pain and significant neck swelling RESPIRATORY: No wheezing, dyspnea or shortness of breath CARDIOVASCULAR: Atypical chest pain. No leg swelling. + palpitations GI: No nausea, vomiting, or diarrhea. No blood in stool. Chronic RUQ pain MUSCULOSKELETAL: Negative for generalized joint pain SKIN: Negative for lesions, rash, and itching. Lumps on the top of scalp. EXAM: BP 118/70 Pulse 83 Temp 36.4 ?C (97.6 ?F) Resp 14 Wt 73.9 kg (163 lb) SpO2 99% BMI 29.81 kg/m? General Appearance: Well appearing, alert, in no acute distress, well-hydrated, well nourished. obese Skin: Skin color, texture, turgor normal, no suspicious rashes or lesions. Head: Normocephalic, no masses, lesion Eyes: Anicteric sclera. Neck: Supple, no adenopathy; thyroid enlarged bilaterally, no bruits. Lymph Nodes: No cervical lymphadenopathy, No supraclavicular lymphadenopathy Lungs: Lungs clear to auscultation. No wheezing, rhonchi, rales. Heart: RRR without murmur, gallop, or rubs. No ectopy. Normal S1 and S2. Abdomen: Abdome (more content not included)... [facility] Hypertension, essential Unspecified essential hypertension [facility] Diagnosis Hypertension, essential Unspecified essential hypertension documented in this encounter [facility] Summary Purpose Family History No Family History Records Found Advance Directives No Advanced Directives Records Found Additional Source Comments (unrecognized sect ion and content) No Status Records Found INFORMATION SOURCE (unrecogn ized section and content) Source Comments (unrecognize d section and content) In the event this informatio n is protected by the Federal Confidentiality of Alcohol and Drug Abuse Patient Records regulations: The Federal rules restrict any use of the information to criminally investigate or prosecute any alcohol or drug abuse patient.[facility] the event this information is protected by the Federal Confidentiality of Alcohol and Drug Abuse Patient Records regulations: The Federal rules restrict any use of the information to criminally investigate or prosecute any alcohol or drug abuse patient.[facility] the event this information is protected by the Federal Confidentiality of Alcohol and Drug Abuse Patient Records regulations: The Federal rules restrict any use of the information to criminally investigate or prosecute any alcohol or drug abuse patient.[facility] the event this information is protected by the Federal Confidentiality of Alcohol and Drug Abuse Patient Records regulations: The Federal rules restrict any use of the information to criminally investigate or prosecute any alcohol or drug abuse patient.[facility] the event this information is protected by the Federal Confidentiality of Alcohol and Drug Abuse Patient Records regulations: The Federal rules restrict any use of the information to criminally investigate or prosecute any alcohol or drug abuse patient.[facility] Reason for Visit (unrecogniz ed section and content) Reason Onset Date Comments Refill Request 04/08/2022 Reason Onset Date Comments Refill Request 07/14/2022 Reason Onset Date Comments Refill Request 11/12/2022 Reason Comments Refill Request Care Teams (unrecognized sec tion and content) Manager It Training Relationship Specialty Start Date End Date Guilherme Garces APRN.CNP, DNP [address] [place] [address] PCP - General Family Practice 01/09/21 Manager It Training Relationship Specialty Start Date End Date Guilherme Garces APRN.CNP, DNP [address] [place] [address] PCP - General Family Practice 01/09/21 08/07/22 FOR RECORDS PERTAINING TO PATIENTS WHO ARE OR HAVE BEEN ENROLLED IN A CHEMICAL DEPENDENCY/SUBSTANCEABUSE PROGRAM, SOME INFORMATION MAY BE OMITTED. This clinical summary was aggregated from multiple sources. Caution should be exercised in using it in the provision of clinical care. This summary normalizes information from multiple sources, and as a consequence, information in this document may materially change the coding, format and clinical context of patient data. In addition, data may be omitted in some cases. CLINICAL DECISIONS SHOULD BE BASED ON THE PRIMARY CLINICAL RECORDS. [facility] [employer] [facility]. provides no warranty or guarantee of the accuracy or completeness of information in this document.
== END 2023-12-26 16:43 | disposition home or self-care (01) ==
PROVIDERS: Nurse Practitioner; Emergency Provider Emergency Medicine; Visit Provider Emergency Medicine
DX: S86.112A Strain of other muscle(s) and tendon(s) of posterior muscle group at lower leg level, left leg, initial encounter (principal); I10 Essential (primary) hypertension; R07.9 Chest pain, unspecified; Z87.891 Personal history of nicotine dependence; Z79.899 Other long term (current) drug therapy; X58.XXXA Exposure to other specified factors, initial encounter
CPT/HCPCS: 71046; 80048; 84484; 85025; 93005; 93971; 99285; A4216

== ENCOUNTER 2024-10-10 19:20 | Emergency (ER) | payer SELFPAY ==
[2024-10-10 19:20] VITALS: BP 143/76; PULSE 101; RESP 17; TEMP 36.7; O2SAT 97; BMI 37.7
--- NOTE | 2024-10-10 19:45 | CT_ITS ---
EXAM: CT ABDOMEN AND PELVIS WITH INTRAVENOUS CONTRAST CLINICAL INDICATION: LLQ pain TECHNIQUE: Helically acquired images were obtained of the abdomen and pelvis with intravenous contrast. CTDIvol = ( 16.08 ) mGy, DLP = ( 1149.23 ) mGycm This CT exam was performed using one or more of the following dose reduction techniques: automated exposure control, adjustment of the mA and/or kV according to patient size, and/or use of iterative reconstruction technique. CONTRAST: IV 100mL Isovue-370 COMPARISON: No relevant prior studies available. FINDINGS: LOWER THORAX: Pleural parenchymal scarring at the anterior lung bases is relatively mild. No cardiomegaly. No significant pericardial effusion. ABDOMEN: LIVER: Unremarkable. Homogeneous. No focal mass. GALLBLADDER AND BILE DUCTS: Unremarkable. No calcified gallstones. No gallbladder distention or wall edema. No intra- or extrahepatic biliary ductal dilation. PANCREAS: Unremarkable. No focal cystic or solid mass. SPLEEN: Unremarkable. Normal size without focal cystic or solid mass. ADRENALS: Unremarkable. No nodules. KIDNEYS AND URETERS: Left upper renal pole scarring posteriorly. No other renal abnormalities. P. No hydronephrosis. STOMACH AND BOWEL: See below. PELVIS: APPENDIX: No evidence of acute appendicitis. BLADDER: Unremarkable. REPRODUCTIVE: Unremarkable as visualized. No mass. ABDOMEN and PELVIS: INTRAPERITONEAL SPACE: See below. BONES/JOINTS: Unremarkable. No suspicious lytic or blastic abnormality. SOFT TISSUES: Unremarkable. No discrete abdominal or pelvic wall hernia. VASCULATURE: Unremarkable. Abdominal aorta is non-dilated. LYMPH NODES: Central mesenteric edema with some prominent lymph nodes can be seen with mesenteritis or panniculitis. CT/Abdomen/Pelvis W IV Cont ONLY IMPRESSION: 1. Central mesenteric edema with some prominent lymph nodes can be seen with mesenteritis or panniculitis. 2. No other acute or inflammatory disease or bowel obstruction. Electronically Signed: Teto Leal MD at 22:21 EST ,
[2024-10-10 20:09] LABS: Absolute Lymphocyte Count 2.54 X10^3/uL (0.83-4.51); Absolute Neutrophil Count 4.8 X10^3/uL (2.0-7.7); Basophil# 0.06 X10^3/uL; Basophil% 0.7 % (0-1); Eosinophil# 0.14 X10^3/uL; Eosinophils% 1.7 % (0-5); Hematocrit 43.4 % (40-54); Hemoglobin 14.8 g/dL (13.0-16.5); Lymphocyte # 2.54 X10^3/ul (0.83-4.51); Mean Corp Hgb Conc 34.1 g/dL (32-36); Mean Corpuscular Hgb 31.2 pg (27.0-32.0); Mean Corpuscular Volume 91.6 fL (80-94); Mean Platelet Vol. 8.4 fl (6.2-12.0); Monocyte# 0.89 X10^3/uL; Monocyte% 10.5 % (0-10); NRBC Flagged by Analyzer 0 % (0-5); Neutrophil # 4.81 X10^3/uL (2.7-7.7); Neutrophil % 56.9 % (47-70); Platelet Count 327 K/mm3 (150-450); RBC Distribution Width CV 12.5 % (11.6-14.6); RBC Distribution Width SD 42.2 fl (35.1-43.9); Red Blood Count 4.74 M/mm3 (4.6-6.2); White Blood Count 8.5 K/mm3 (4.4-11.0)
[2024-10-10] MEDS: Ondansetron 4 MG/2 ML Vial IV (20:15)
[2024-10-10] MEDS: Morphine 4 MG/ML Syringe IV (20:15)
[2024-10-10 20:26] LABS: ALB/GLOB Ratio 1.1 RATIO (0.9-2.4); AST(SGOT) 18 U/L (15-37); Alanine Aminotransfer ALT/SGPT 41 U/L (16-61); Albumin, Serum 3.8 g/dL (3.2-5.0); Alkaline Phosphatase 84 U/L (45-117); Anion Gap 5 (5-15); BUN 10 mg/dL (7-18); BUN/Creat Ratio 9.5 RATIO (10-20); Calcium,Total 8.8 mg/dL (8.5-10.1); Chloride 105 mmol/L (98-107); Creatinine, Serum 1.05 mg/dL (0.70-1.30); EST Glomerular Filtration Rate 82 mL/min (>60); Est Glom Filt Rate - Afr Amer 99 mL/min (>60); Estimated Creatinine Clearance 89.11 ml/min; Globulin 3.5 g/dL (2.2-4.2); Glucose 114 mg/dL (74-106); Lipase 38 U/L (13-75); Potassium 3.6 mmol/L (3.5-5.1); Protein, Total 7.3 g/dL (6.4-8.2); Sodium Level 137 mmol/L (136-145)
[2024-10-10 20:43] LABS: Bacteria 0 SEEN /hpf (None Seen); Mucous, Urine 0 SEEN /hpf (<or=2+); Red Blood Cells-Urine 0 SEEN /hpf (0-5); White Blood Cells 0 SEEN /hpf (0-5)
[2024-10-10 21:05] LABS: Color, Urine Yellow (Yellow); Glucose, Dipstick Normal (Normal); Ketone-Dipstick Negative (Negative); Leukocyte Esterase-Dipstick Negative /ul (Negative); Nitrite-Dipstick Negative (Negative); Occult Blood-Urine Negative /ul (Negative); Protein-Dipstick Negative (Negative); Specific Gravity, Urine 1.015 (1.002-1.030); Urine Bilirubin Dipstick Negative (Negative); Urine Clarity Sl. Cloudy (Clear); Urine Urobilinogen Normal (Normal)
[2024-10-10 21:20] VITALS: BP 138/74; PULSE 79; RESP 16; O2SAT 100
[2024-10-10 21:31] LABS: Squamous Epithelial Cells - UA 0-5 SEEN /hpf (0-5)
--- NOTE | 2024-10-10 21:51 | EX.ED.DYSGE1 ---
HPI History of Present Illness Chief Complaint: Abd Pain Narrative Narrative: Patient is a 44-year-old male with past medical history of hypertension who presents to the emergency department with a chief complaint of abdominal pain for the past 3 days as well as nausea. Patient states that he was at work earlier today and noted that his pain worsened and felt like somebody was stabbing his intestines and cranking them. He states that has progressively worsened which ultimately prompted him here for further evaluation management. He states that he is having bowel movements and passing gas. Patient denies any other previous abdominal surgeries. Denies any recent sick contacts. [facility] Medical History Irregular heart beat HTN (hypertension) Home Medications ?Medication ?Instructions ?Recorded ?Last Taken ?Type lisinopril 10 mg tablet 10 mg PO DAILY blood pressure #30 11/14/22 Unknown Rx tabs lisinopril 10 mg tablet 10 mg PO DAILY #14 tabs 04/06/23 Unknown Rx ondansetron 4 mg disintegrating 4 mg PO Q8H PRN PRN Nausea #14 tabs 09/24/23 Unknown Rx tablet lisinopril 10 mg tablet 10 mg PO DAILY #30 tabs 12/26/23 Unknown Rx dicyclomine 10 mg capsule 10 mg PO TID PRN abdominal pain 4 10/10/24 Unknown Rx days #12 caps Allergy/AdvReac Type Severity Reaction Status Date / Time morphine AdvReac Upset Verified 10/10/24 19:21 Stomach naproxen AdvReac Upset Verified 10/10/24 19:21 Stomach Surgical History History of dental surgery Social History Smoking Status: Former smoker substance use type: does not use ROS ROS ED ROS Narrative Constitutional: Denies any fevers, chills, headaches, lightness, dizziness Cardiovascular: Denies chest pain or palpitations Respiratory: Denies coughing wheezing shortness of breath Abdomen: Complains of abdominal pain and nausea as noted above denies vomiting or diarrhea : Denies any urinary symptoms Neurological: Denies numbness, weakness, tingling Musculoskeletal: Denies back pain Skin: Denies rashes or lesions EXAM Physical Exam Narrative Exam Narrative: General: Patient lying in bed resting comfortably did not appear to be in acute distress Head: Atraumatic, normocephalic Eyes: PERRL bilaterally, EOMI bilateral, no conjunctival injection noted Neck: Soft, supple, trachea midline Cardiovascular: Regular rate and rhythm no murmurs gallops rubs are noted Respiratory: Clear to auscultation bilaterally no rales rhonchi or wheezes noted Abdomen: Soft, nondistended, tenderness palpation of the left lower quadrant no rebound or guarding on exam Extremities: +5/5 strength noted in the bilateral upper and lower extremities, no pedal edema on exam, radial pulses +2/4 in the bilateral upper extremities Neurological: Patient is following commands knew that he was at [facility] years 2023 Skin: Warm, dry, intact Const Vital Signs: 10/10/24 19:20 10/10/24 21:20 Temperature 98.1 F Temperature Source Temporal Pulse Rate 101 H 79 Respiratory Rate 17 16 Blood Pressure 143/76 H 138/74 H Blood Pressure Mean 98 95 Pulse Ox 97 100 Oxygen Delivery Method Room Air MDM MDM MDM Narrative Medical decision making narrative: Patient is a 44-year-old male who presents to the emergency department chief complaint of left lower quadrant abdominal pain for 3 days now. Patient will have a workup performed here on the differential diagnose includes Melamin to diverticulitis, bowel obstruction, viral gastroenteritis. Once workup is obtained reviewed he will be reevaluated. Patient CBC reviewed and showed no evidence of leukocytosis white blood count normal at 8.5, hemoglobin was 14.8, platelet count normal at 327. Patient sodium normal 137, potassium normal 3.6, creatinine normal at 1.05. Patient's total bilirubin normal at 0.80, AST and ALT were 18 and 41 respectively. Patient's lipase normal at 38. Patient's urinalysis did not reveal any evidence of infection. Patient's CT abdomen pelvis with IV contrast showed central mesenteric edema with some prominent lymph nodes can be seen with mesenteritis or panniculitis. On reevaluation the patient he is feeling better he would like to go home. Patient was advised to use Tylenol or ibuprofen for pain control. He was advised to follow-up with his primary care physician outpatient setting. He will be sent a prescription for Bentyl. He is encouraged return with worsening symptoms or other concerns. He is agreeable this plan he was requesting work note which will be provided all question concerns answered he is discharged home in stable condition. Lab Data Labs: Laboratory Results - last 24 hr 10/10/24 10/10/24 20:00 20:20 WBC 8.5 RBC 4.74 Hgb 14.8 Hct 43.4 MCV 91.6 MCH 31.2 MCHC 34.1 RDW Std Deviation 42.2 RDW Coeff of Lior 12.5 Plt Count 327 MPV 8.4 Immature Gran % (Auto) 0.200 Neut % (Auto) 56.9 Lymph % (Auto) 30.0 [place] % (Auto) 10.5 H Eos % (Auto) 1.7 Baso % (Auto) 0.7 Absolute Neuts (auto) 4.8 Absolute Lymphs (auto) 2.54 Nucleated RBC % 0 Sodium 137 Potassium 3.6 Chloride 105 Carbon Dioxide 27.0 Anion Gap 5 BUN 10 Creatinine 1.05 Estim Creat Clear Calc 89.11 Est GFR (MDRD) Af Amer 99 Est GFR (MDRD) Non-Af 82 BUN/Creatinine Ratio 9.5 L Glucose 114 H Calcium 8.8 Total Bilirubin 0.80 AST 18 ALT 41 Alkaline Phosphatase 84 Total Protein 7.3 Albumin 3.8 Globulin 3.5 Albumin/Globulin Ratio 1.1 Lipase 38 Urine Color Yellow Urine Clarity Sl. Cloudy Urine pH 6.0 Ur Specific [place] 1.015 Urine Protein Negative Urine Glucose (UA) Normal Urine Ketones Negative Urine Occult Blood Negative Urine Nitrite Negative Urine Bilirubin Negative Urine Urobilinogen Normal Ur Leukocyte Esterase Negative Urine RBC 0 SEEN Urine WBC 0 SEEN Ur Squamous Epith Cells 0-5 SEEN Urine Bacteria 0 SEEN Urine Mucus 0 SEEN Radiography Diagnostic Testing: Clinical Impression(s) from Imaging Studies Abdomen/Pelvis CT 10/10/24 19:45 IMPRESSION: 1. Central mesenteric edema with some prominent lymph nodes can be seen with mesenteritis or panniculitis. 2. No other acute or inflammatory disease or bowel obstruction. Electronically Signed: Teto Leal MD at 22:21 EST , Discharge Plan Triage Chief Complaint: Abd Pain ED Provider: Magen Chávez Dx/Rx/DC Orders Clinical Impression: Abdominal pain Prescriptions: New dicyclomine 10 mg capsule 10 mg PO TID PRN (Reason: abdominal pain) 4 Days Qty: 12 0RF No Action lisinopril 10 mg tablet 10 mg PO DAILY Qty: 30 0RF lisinopril 10 mg tablet 10 mg PO DAILY Qty: 14 0RF ondansetron 4 mg tablet,disintegrating 4 mg PO Q8H PRN PRN (Reason: Nausea) Qty: 14 0RF lisinopril 10 mg tablet 10 mg PO DAILY Qty: 30 2RF Stand Alone Forms: ED Work / School Excuse Primary Care Provider: Vivien Gustafson NP Referrals: Vivien Gustafson NP, [employer] [Primary Care Provider] - Activity Restrictions/Additional Instructions: Follow-up with your primary care physician outpatient setting. Take prescription as prescribed. Return with worsening symptoms or other concerns. Start with a bland diet and advance as tolerated. Print Language: Bolivian Disposition Disposition: Home, Self Care
[2024-10-10 22:43] VITALS: BP 113/68; PULSE 76; RESP 18; TEMP 36.6; O2SAT 98
== END 2024-10-10 22:44 | disposition home or self-care (01) ==
PROVIDERS: Emergency Provider Emergency Medicine; PCP Nurse Practitioner Primary Care; Visit Provider Emergency Medicine
DX: R10.9 Unspecified abdominal pain (principal); I10 Essential (primary) hypertension; Z87.891 Personal history of nicotine dependence
CPT/HCPCS: 74177; 80053; 81001; 83690; 85025; 96374; 96375; 99283; Q9967; A4216; J2405

== ENCOUNTER 2025-01-26 06:59 | Emergency (ER) | payer SELFPAY ==
[2025-01-26 07:00] VITALS: BP 170/72; PULSE 108; RESP 18; TEMP 36.8; O2SAT 100; BMI 37.1
--- NOTE | 2025-01-26 07:11 | CT_ITS ---
PROCEDURE: ABDOMEN/PELVIS W IV CONT ONLY REASON FOR EXAM: Right-sided abdominal pain. TECHNIQUE: Abdomen and pelvis CT with intravenous contrast. IV CONTRAST: COMPARISON: CT abdomen and pelvis with IV contrast dated October 10, 2024. FINDINGS: The lung bases are clear. There is no free air within the abdomen and pelvis. The liver, spleen, adrenals, pancreas are within normal limits. There is evidence of left renal cortical scarring near the upper pole. There is stable asymmetric prominence of the right proximal ureter. There is no evidence of renal stones or obstructive uropathy seen bilaterally. The urinary bladder is within normal limits. The prostate is nonenlarged. There are scattered colonic diverticulosis without CT evidence for acute diverticulitis. There is no bowel obstruction. The appendix is normal. No abnormal free fluid is seen within the abdomen or pelvis. There is stable haziness around the central mesenteric fat (image 40/126). There also some lymph nodes within this area. Etiologies be determined. Panniculitis is a possibility. CT/Abdomen/Pelvis W IV Cont ONLY IMPRESSION: Stable haziness seen within the central abdominal mesentery surrounding promine nt lymph nodes. These may suggest panniculitis. These findings were seen on prior examination dating back to 2022. No acute fi ndings are noted. One or more dose reduction techniques were used (e.g., Automated exposure contr ol, adjustment of the mA and/or kV according to patient size, use of iterative reconstruction technique). Reading Location: [id number]
--- NOTE | 2025-01-26 07:12 | EX.ED.DYSGE1 ---
HPI History of Present Illness Chief Complaint: Abd Pain Informant: patient Narrative Narrative: 44-year-old male presenting to the emergency room with right-sided abdominal pain. Patient states that yesterday morning around 0500 he developed pain right side of his abdomen that radiated to the back. He states that it is coming gone. He associates worsening symptoms of pain with eating. No fevers. No vomiting. He notes he is moving his bowels but feels constipated at times. He denies any urinary symptoms. He states that in the past he had underwent a HIDA scan was told that he had gallbladder sludge. He states he is worried about his appendix. There is no personal history of kidney stones. No prior abdominal surgeries. He states that it is a squeezing-like sensation. He points to the right upper quadrant is the area that hurts and radiates posteriorly. [facility] Medical History Irregular heart beat HTN (hypertension) Home Medications ?Medication ?Instructions ?Recorded ?Last Taken ?Type lisinopril 10 mg tablet 10 mg PO DAILY blood pressure #30 11/14/22 Unknown Rx tabs Allergy/AdvReac Type Severity Reaction Status Date / Time morphine AdvReac Upset Verified 01/26/25 07:00 Stomach naproxen AdvReac Upset Verified 01/26/25 07:00 Stomach Surgical History History of dental surgery Social History Smoking Status: Former smoker substance use type: does not use ROS ROS ED Constitutional Constitutional ED: Denies chills, fever(s) or weight loss Eyes Eyes: Denies change in vision or diplopia ENT ENT ED: Denies ear pain, rhinorrhea or sore throat Cardiovascular Cardiovascular: Denies chest pain, orthopnea, palpitations or racing heartbeat Respiratory/Chest Respiratory/Chest: Denies cough, dyspnea or orthopnea Gastrointestinal Gastrointestinal: Reports abdominal pain and constipation; Denies diarrhea, nausea or vomiting Genitourinary Genitourinary ED: Denies dysuria, hematuria or urinary frequency Musculoskeletal Musculoskeletal: Denies arthralgias or myalgias Integumentary Denies abscess or rash Neurologic Neurologic: Denies headache(s) or weakness Psychiatric Psychiatric: Denies anxiety, depression, suicidal ideation or suicidal thoughts Endocrine Endocrinology: Denies polydipsia, polyphagia or polyuria Allergic/Immunologic Allergic/Immunologic ED: Denies mouth swelling, tongue swelling or urticaria EXAM Physical Exam Const Vital Signs: 01/26/25 07:00 01/26/25 09:00 Temperature 98.3 F Temperature Source Oral Pulse Rate 108 H 75 Respiratory Rate 18 16 Blood Pressure 170/72 H 126/67 H Blood Pressure Mean 104 86 Pulse Ox 100 96 Oxygen Delivery Method Room Air Room Air Positive well nourished and well developed General Appearance ED: well developed HEENT Reports normocephalic, head/scalp atraumatic and moist mucous membranes Eyes PERRL and EOMs intact bilaterally Neck no lymphadenopathy, supple and no JVD Resp normal respiratory effort and clear to auscultation bilaterally Cardio regular rate, regular rhythm and no murmurs GI GI Narrative: Patient reports tenderness to palpation in both the right lower quadrant and the right upper quadrants of the abdomen. He winces when I press on it. Auscultation: normoactive bowel sounds Palpation: soft, tender and guarding; Negative for rebound tenderness present Back/Spine no CVA tenderness and normal ROM Extremity normal to inspection General Extremety ED: Negative for edema General Extremity: Negative for edema Neuro oriented x3 and CN's II-XII intact bilaterally Sensorium / Orientation: alert Motor Exam: strength 5/5 throughout Psych mental status grossly normal Mood & Affect: Negative for depressed or tearful Skin no rashes or lesions noted and no wounds MDM MDM MDM Narrative Medical decision making narrative: Differential diagnosis includes but not limited to appendicitis colitis cholecystitis kidney stone pyelonephritis UTI mesenteric adenitis epiploic appendagitis pancreatitis Patient's white count nonspecifically elevated 11.9 otherwise labs only show a glucose of 135. Urinalysis is negative. CT of the abdomen pelvis was obtained read by radiology reviewed by myself. I do not see anything on the CT to fully explain the patient's symptomology. He has some prominent lymph nodes which he appears to have had for. I discussed the above findings with the patient. He received Toradol and Zofran. I would recommend monitoring symptoms. If he is worsening her symptoms are persistent past 24 hours he needs to return to the emergency department for repeat examination. History & Record Review Discussion w/independent historian: Patient and Family Lab Data Attestation: I reviewed the patient's lab results. Labs: Laboratory Results - last 24 hr 01/26/25 01/26/25 07:54 08:00 WBC 11.9 H RBC 4.63 Hgb 14.5 Hct 42.0 MCV 90.7 MCH 31.3 MCHC 34.5 RDW Std Deviation 39.3 RDW Coeff of Lior 11.9 Plt Count 419 MPV 8.6 Immature Gran % (Auto) 0.700 Neut % (Auto) 61.8 Lymph % (Auto) 22.7 [place] % (Auto) 11.2 H Eos % (Auto) 2.8 Baso % (Auto) 0.8 Absolute Neuts (auto) 7.4 Absolute Lymphs (auto) 2.70 Nucleated RBC % 0 Sodium 133 Potassium 3.8 Chloride 97 L Carbon Dioxide 23.0 Anion Gap 14 BUN 14 Creatinine 0.99 Estim Creat Clear Calc 93.74 Est GFR (MDRD) Non-Af 96 BUN/Creatinine Ratio 14.1 Glucose 135 H Calcium 9.7 Total Bilirubin 0.50 Direct Bilirubin 0.18 AST 24 ALT 27 Alkaline Phosphatase 101 Total Protein 7.8 Albumin 4.1 Globulin 3.7 Lipase 40 Urine Color Straw Urine Clarity Clear Urine pH 6.0 Ur Specific [place] 1.010 Urine Protein Negative Urine Glucose (UA) Normal Urine Ketones Negative Urine Occult Blood Negative Urine Nitrite Negative Urine Bilirubin Negative Urine Urobilinogen Normal Ur Leukocyte Esterase Negative Urine WBC 0 SEEN Ur Squamous Epith Cells 0 SEEN Urine Bacteria RARE Urine Mucus 0 SEEN Radiography Diagnostic Testing: Clinical Impression(s) from Imaging Studies Abdomen/Pelvis CT 01/26/25 07:11 IMPRESSION: Stable haziness seen within the central abdominal mesentery surrounding prominent lymph nodes. These may suggest panniculitis. These findings were seen on prior examination dating back to 2022. No acute findings are noted. One or more dose reduction techniques were used (e.g., Automated exposure control, adjustment of the mA and/or kV according to patient size, use of iterative reconstruction technique). Reading Location: [facility] Discharge Plan Triage Chief Complaint: Abd Pain ED Provider: Guilherme Callahan Dx/Rx/DC Orders Clinical Impression: Abdominal pain Instructions: Abdominal Pain Prescriptions: No Action lisinopril 10 mg tablet 10 mg PO DAILY Qty: 30 0RF Primary Care Provider: Vivien Gustafson NP Referrals: Vivien Gustafson NP, [employer] [Primary Care Provider] - As Needed Activity Restrictions/Additional Instructions: If your symptoms are continuing or worsening please return to the emergency department for repeat examination particularly over the next 24 hours. Print Language: Lao Disposition Disposition: Home, Self Care
[2025-01-26] MEDS: Ketorolac 30 MG/ML Syringe IV (07:24)
[2025-01-26] MEDS: Ondansetron 4 MG/2 ML Vial IV (07:24)
[2025-01-26 08:02] LABS: Mucous, Urine 0 SEEN /hpf (<or=2+); Squamous Epithelial Cells - UA 0 SEEN /hpf (0-5); White Blood Cells 0 SEEN /hpf (0-5)
[2025-01-26 08:15] LABS: Absolute Neutrophil Count 7.4 X10^3/uL (2.0-7.7); Basophil% 0.8 % (0-1); Eosinophil# 0.33 X10^3/uL; Eosinophils% 2.8 % (0-5); Hemoglobin 14.5 g/dL (13.0-16.5); Lymphocyte % 22.7 % (19-41); Mean Corp Hgb Conc 34.5 g/dL (32-36); Mean Corpuscular Hgb 31.3 pg (27.0-32.0); Mean Corpuscular Volume 90.7 fL (80-94); Mean Platelet Vol. 8.6 fl (6.2-12.0); Monocyte# 1.34 X10^3/uL; Monocyte% 11.2 % (0-10); NRBC Flagged by Analyzer 0 % (0-5); Neutrophil # 7.37 X10^3/uL (2.7-7.7); Neutrophil % 61.8 % (47-70); Platelet Count 419 K/mm3 (150-450); RBC Distribution Width CV 11.9 % (11.6-14.6); RBC Distribution Width SD 39.3 fl (35.1-43.9); Red Blood Count 4.63 M/mm3 (4.6-6.2); White Blood Count 11.9 K/mm3 (4.4-11.0)
[2025-01-26 08:50] LABS: Color, Urine Straw (Yellow); Glucose, Dipstick Normal (Normal); Ketone-Dipstick Negative (Negative); Leukocyte Esterase-Dipstick Negative /ul (Negative); Nitrite-Dipstick Negative (Negative); Occult Blood-Urine Negative /ul (Negative); Protein-Dipstick Negative (Negative); Urine Bilirubin Dipstick Negative (Negative); Urine Clarity Clear (Clear); Urine Urobilinogen Normal (Normal)
[2025-01-26 08:51] LABS: Lipase 40 U/L (13-75)
[2025-01-26 08:52] LABS: AST(SGOT) 24 U/L (<=37); Alanine Aminotransfer ALT/SGPT 27 U/L (<=46); Albumin, Serum 4.1 g/dL (3.5-5.0); Alkaline Phosphatase 101 U/L (40-129); Anion Gap 14 (5-15); BUN 14 mg/dL (4-19); BUN/Creat Ratio 14.1 RATIO (10-20); Bilirubin, Direct 0.18 mg/dL (0.00-0.30); Calcium,Total 9.7 mg/dL (7.6-11.0); Chloride 97 mmol/L (98-108); Creatinine, Serum 0.99 mg/dL (0.70-1.20); EST Glomerular Filtration Rate 96 (>60); Estimated Creatinine Clearance 93.74 ml/min (50-250); Globulin 3.7 g/dL (2.2-4.2); Glucose 135 mg/dL (70-99); Potassium 3.8 mmol/L (3.3-5.1); Protein, Total 7.8 g/dL (5.9-8.4); Sodium Level 133 mmol/L (133-145)
[2025-01-26 09:00] VITALS: BP 126/67; PULSE 75; RESP 16; O2SAT 96
[2025-01-26 09:19] LABS: Bacteria RARE /hpf (None Seen)
[2025-01-26 09:38] VITALS: BP 121/88; PULSE 90; RESP 16; TEMP 36.6; O2SAT 100
[2025-01-26 10:25] LABS: Red Blood Cells-Urine 0 SEEN /hpf (0-5)
== END 2025-01-26 09:40 | disposition home or self-care (01) ==
PROVIDERS: Emergency Provider Emergency Medicine; PCP Nurse Practitioner Primary Care; Visit Provider Emergency Medicine
DX: R10.11 Right upper quadrant pain (principal); Z87.891 Personal history of nicotine dependence; I10 Essential (primary) hypertension; R10.12 Left upper quadrant pain
CPT/HCPCS: 74177; 80048; 80076; 81001; 83690; 85025; 96374; 96375; 99283; Q9967; J2405

== ENCOUNTER 2025-02-02 13:00 | Emergency (ER) | payer SELFPAY ==
[2025-02-02 13:00] VITALS: BP 133/80; PULSE 112; RESP 20; TEMP 36.4; O2SAT 97; BMI 37.0
[2025-02-02 13:27] LABS: Absolute Lymphocyte Count 2.04 X10^3/uL (0.83-4.51); Absolute Neutrophil Count 9.3 X10^3/uL (2.0-7.7); Basophil# 0.09 X10^3/uL; Basophil% 0.7 % (0-1); Eosinophil# 0.13 X10^3/uL; Hematocrit 40.9 % (40-54); Hemoglobin 14.1 g/dL (13.0-16.5); Lymphocyte # 2.04 X10^3/ul (0.83-4.51); Lymphocyte % 15.9 % (19-41); Mean Corp Hgb Conc 34.5 g/dL (32-36); Mean Corpuscular Hgb 30.9 pg (27.0-32.0); Mean Corpuscular Volume 89.7 fL (80-94); Mean Platelet Vol. 8.4 fl (6.2-12.0); Monocyte# 1.22 X10^3/uL; Monocyte% 9.5 % (0-10); NRBC Flagged by Analyzer 0 % (0-5); Neutrophil # 9.27 X10^3/uL (2.7-7.7); Neutrophil % 72.5 % (47-70); Platelet Count 443 K/mm3 (150-450); RBC Distribution Width SD 38.6 fl (35.1-43.9); Red Blood Count 4.56 M/mm3 (4.6-6.2); White Blood Count 12.8 K/mm3 (4.4-11.0)
[2025-02-02 13:59] LABS: ALB/GLOB Ratio 1.3 RATIO (0.9-2.4); AST(SGOT) 28 U/L (<=37); Alanine Aminotransfer ALT/SGPT 32 U/L (<=46); Albumin, Serum 4.3 g/dL (3.5-5.0); Alkaline Phosphatase 104 U/L (40-129); Anion Gap 12 (5-15); BUN 18 mg/dL (4-19); BUN/Creat Ratio 16.1 RATIO (10-20); Calcium,Total 9.2 mg/dL (7.6-11.0); Carbon Dioxide 22.2 mmol/L (21.0-32.0); Chloride 99 mmol/L (98-108); Creatinine, Serum 1.13 mg/dL (0.70-1.20); EST Glomerular Filtration Rate 82 (>60); Estimated Creatinine Clearance 81.96 ml/min (50-250); Globulin 3.2 g/dL (2.2-4.2); Glucose 110 mg/dL (70-99); Lipase 51 U/L (13-75); Potassium 4.2 mmol/L (3.3-5.1); Protein, Total 7.4 g/dL (5.9-8.4); Sodium Level 133 mmol/L (133-145); Total Bilirubin 0.65 mg/dL (0.00-1.30)
--- NOTE | 2025-02-02 14:11 | US_ITS ---
PROCEDURE: Ultrasound of the right upper quadrant. REASON FOR EXAM: RUQ PAIN COMPARISON: None FINDINGS: Liver: Grossly normal size and echotexture. Gallbladder: The gallbladder is contracted. The gallbladder wall measures 2.3 mm. Patient ate 3 hours ago. Common bile duct: Normal measuring it measures 3.1 mm.. Pancreas: Visualized portions are sonographically unremarkable. Visualized portions of the right kidney are unremarkable. No right upper quadrant ascites. US/Gallbladder IMPRESSION: The gallbladder is contracted. No evidence of cholelithiasis. The patient ate 3 hours ago. Reading Location: [place] [id number]
--- NOTE | 2025-02-02 14:12 | ED.VIS.GI ---
HPI HPI - GI History of Present Illness Chief Complaint: Abd Pain Informant: patient Abdominal Pain/Flank Pain Onset: Days Context: Gradual Onset Timing: Intermittent Quality: Cramping Location: RUQ Current Severity: Mild Maximum Severity: Mild Worsened by: Nothing Relieved by: Nothing Nausea/Vomiting/Emesis GI Symptom: Negative for Nausea or Vomiting Diarrhea/Melena/Hematochezia GI Symptom: Negative for Diarrhea, Melena or Hematochezia Associated Symptoms Associated Symptoms: Negative for Dysuria, Frequency, Hematuria or Urgency Narrative Narrative: 44-year-old male history of hypertension. No prior abdominal surgeries. He has had a history of right-sided abdominal pain without any specific diagnosis. Said this worked up in the past. He had a HIDA scan at [facility] which showed sludge but he did not need surgery at that time. He is having recurrent pain. He denies vomiting or diarrhea. Says he is having yellowish stool. Denies any melena. No hematemesis. No fever. No weight loss. Denies any dysuria. Prior similar symptoms: Yes Recent Illness/Hospitalization: No PFSH PFSH Medical History Irregular heart beat HTN (hypertension) Home Medications ?Medication ?Instructions ?Recorded ?Last Taken ?Type lisinopril 10 mg tablet 10 mg PO DAILY blood pressure #30 11/14/22 Unknown Rx tabs Allergy/AdvReac Type Severity Reaction Status Date / Time morphine AdvReac Upset Verified 01/26/25 07:00 Stomach naproxen AdvReac Upset Verified 01/26/25 07:00 Stomach Surgical History History of dental surgery Social History Smoking Status: Former smoker substance use type: does not use ROS ROS ED ROS Narrative Abdominal pain. Constitutional Constitutional ED: Denies chills or fever(s) ENT ENT ED: Denies ear pain Cardiovascular Cardiovascular: Denies chest pain Respiratory/Chest Respiratory/Chest: Denies cough or dyspnea Gastrointestinal Gastrointestinal: Reports abdominal pain; Denies constipation, diarrhea, melena, nausea or vomiting Genitourinary Genitourinary ED: Denies dysuria or hematuria Musculoskeletal Musculoskeletal: Denies arthralgias or back pain Integumentary Denies abscess or Abrasions Neurologic Neurologic: Denies headache(s) Psychiatric Psychiatric: Denies anxiety or depression Endocrine Endocrinology: Denies polydipsia or polyphagia Hematologic/Lymphatic Hematologic/Lymphatic: Denies easy bleeding Allergic/Immunologic Allergic/Immunologic ED: Denies mouth swelling, tongue swelling or urticaria EXAM Physical Exam Narrative Exam Narrative: Well-appearing middle-age male. Vital signs are stable afebrile. He does not look septic or toxic. He is in no acute distress. Sitting upright in bed. Currently states his pain is not bad at all. He denies any nausea or vomiting. Denies any fever. H EENT exam pupils round reactive light. No icterus. Moist use membranes. Lungs clear to auscultation bilaterally. Heart regular rhythm rate about 100 no murmur. Chest wall ribs nontender. He has mild right upper abdominal tenderness but not specifically in the right upper quadrant. There is no hernia or mass. There is no signs of distention or obstruction. There is no pulsatile mass. He has absolutely no right lower quadrant or left-sided abdominal tenderness. He is moving all 4 extremities. There are nontender no edema. Normal strength. Back nontender. Neurologically is awake and alert. No focal motor deficits. Const Vital Signs: 02/02/25 13:00 02/02/25 15:00 Temperature 97.5 F L Temperature Source Temporal Pulse Rate 112 H 78 Respiratory Rate 20 H 18 Blood Pressure 133/80 H Blood Pressure Mean 97 Pulse Ox 97 98 Oxygen Delivery Method Room Air Room Air Positive well nourished and well developed; Negative for cachectic, contractures or unkempt General Appearance ED: well developed; Negative for unkempt, cachectic, contractures or pallor Nutritional Appearance: Negative for cachectic HEENT normocephalic and atraumatic Eyes PERRL and EOMs intact bilaterally General Eye ED: Negative for pale conjunctiva, scleral icterus or other Neck no lymphadenopathy, supple and no JVD General: Negative for tenderness Carotids: Negative for other Resp normal respiratory effort and clear to auscultation bilaterally Effort and Inspection: Negative for respiratory distress Auscultation: Negative for rales, rhonchi, wheezes or diminished lung sounds Cardio regular rate, regular rhythm, S1 normal heart sound, S2 normal heart sound and no murmurs Rate: Negative for bradycardia or tachycardic Rhythm: Negative for abnormal rhythm GI non-distended and no masses; Negative for non-tender Inspection: Negative for abdominal distention Palpation: soft and tender; Negative for guarding, rigid, mass, pulsatile mass or rebound tenderness present Back/Spine no CVA tenderness General Back: Negative for CVA tenderness Cervical Spine: Negative for cervical spine tenderness Thoracic Spine / Upper Back: Negative for thoracic spinal tenderness Lumbar Spine / Lower Back: Negative for lumbar spinal tenderness Coccyx: Negative for other Extremity full ROM General Extremety ED: Negative for edema or tenderness General Extremity: Negative for edema Neuro CN's II-XII intact bilaterally and moves all extremities Sensorium / Orientation: alert; Negative for oriented to person, oriented to place, oriented to time, orientation impaired, confused, lethargic or stuporous Motor Exam: strength 5/5 throughout; Negative for general weakness or strength abnormal Psych mental status grossly normal and thought process normal Appearance: Negative for unkempt Attitude: No agitated Mood & Affect: Negative for depressed, anxious or tearful Skin no wounds General Skin Exam: Negative for jaundice or pallor Lesions: no lesions Rashes: no rashes Trauma: Negative for abrasion Nails: Negative for discolored MDM MDM MDM Narrative Medical decision making narrative: 44-year-old male recurrent abdominal pain has not been diagnosed in the last several years. He has had 2 recent CAT scan does not show anything specific. He had a prior HIDA scan. Obtain an ultrasound today. He was given Toradol for pain. Labs were obtained. Repeat exam at 3:36 PM patient's abdomen is benign. We went over his test results. They are unremarkable. He will be referred to his primary care physician for further evaluation and follow-up. History & Record Review Discussion w/independent historian: Patient Additional record(s) reviewed:: Prior inpatient record, Prior outpatient record, Prior ED visit and Prior labs Lab Data Attestation: I reviewed the patient's lab results. Lab results narrative: CBC shows a mildly elevated white count 12.8. H&H of 14 and 40. Platelets 443. Electrolytes show a gap of 12. BUN and creatinine of 18 and 1.1. Glucose 110. Liver enzymes normal. Lipase 51. Labs: Laboratory Results - last 24 hr 02/02/25 13:15 WBC 12.8 H RBC 4.56 L Hgb 14.1 Hct 40.9 MCV 89.7 MCH 30.9 MCHC 34.5 RDW Std Deviation 38.6 RDW Coeff of Lior 12.0 Plt Count 443 MPV 8.4 Immature Gran % (Auto) 0.400 Neut % (Auto) 72.5 H Lymph % (Auto) 15.9 L [place] % (Auto) 9.5 Eos % (Auto) 1.0 Baso % (Auto) 0.7 Absolute Neuts (auto) 9.3 H Absolute Lymphs (auto) 2.04 Nucleated RBC % 0 Sodium 133 Potassium 4.2 Chloride 99 Carbon Dioxide 22.2 Anion Gap 12 BUN 18 Creatinine 1.13 Estim Creat Clear Calc 81.96 Est GFR (MDRD) Non-Af 82 BUN/Creatinine Ratio 16.1 Glucose 110 H Calcium 9.2 Total Bilirubin 0.65 AST 28 ALT 32 Alkaline Phosphatase 104 Total Protein 7.4 Albumin 4.3 Globulin 3.2 Albumin/Globulin Ratio 1.3 Lipase 51 Radiography Diagnostic Testing: Clinical Impression(s) from Imaging Studies Gallbladder Ultrasound 02/02/25 14:11 IMPRESSION: The gallbladder is contracted. No evidence of cholelithiasis. The patient ate 3 hours ago. Reading Location: [place] [address] Discharge Plan Triage Chief Complaint: Abd Pain ED Provider: Antonio Ortiz Dx/Rx/DC Orders Clinical Impression: Abdominal pain Instructions: Abdominal Pain Prescriptions: No Action lisinopril 10 mg tablet 10 mg PO DAILY Qty: 30 0RF Primary Care Provider: Vivien Gustafson NP Referrals: Vivien Gustafson NP, [employer] [Primary Care Provider] - As soon as possible Activity Restrictions/Additional Instructions: Tests today are unremarkable as is your ultrasound. Follow-up your primary care provider for further evaluation. Print Language: Czech Disposition Disposition: Home, Self Care
[2025-02-02] MEDS: Ketorolac 30 MG/ML Syringe IV (14:20)
[2025-02-02 15:00] VITALS: PULSE 78; RESP 18; O2SAT 98
== END 2025-02-02 15:44 | disposition home or self-care (01) ==
PROVIDERS: Emergency Provider Emergency Medicine; PCP Nurse Practitioner Primary Care; Visit Provider Emergency Medicine
DX: R10.11 Right upper quadrant pain (principal); I10 Essential (primary) hypertension; Z87.891 Personal history of nicotine dependence
CPT/HCPCS: 76705; 80053; 83690; 85025; 96374; 99283; A4216

== ENCOUNTER 2025-04-30 19:53 | Emergency (ER) | payer SELFPAY ==
[2025-04-30 19:54] VITALS: BP 135/91; PULSE 97; RESP 16; TEMP 36.4; O2SAT 99; BMI 36.2
--- NOTE | 2025-04-30 20:05 | EDS_ITS ---
HPI History of Present Illness Chief Complaint: GI Bleed [facility] Medical History Irregular heart beat HTN (hypertension) Home Medications ?Medication ?Instructions ?Recorded ?Last Taken ?Type lisinopril 10 mg tablet 10 mg PO DAILY blood pressur e #30 11/14/22 Unknown Rx tabs Allergy/AdvReac Type Severity Reaction Status Date / Time morphine AdvReac Upset Verified 04/30/25 19:54 Stomach naproxen AdvReac Upset Verified 04/30/25 19:54 Stomach Surgical History History of dental surgery Social History Smoking Status: Former smoker substance use type: does not use EXAM Physical Exam Const Vital Signs: 04/30/25 19:54 04/30/25 22:00 Temperature 97.6 F L Temperature Source Temporal Pulse Rate 97 82 Respiratory Rate 16 16 Blood Pressure 135/91 H 144/68 H Blood Pressure Mean 105 93 Pulse Ox 99 100 Oxygen Delivery Method Room Air Room Air MDM MDM MDM Narrative Medical decision making narrative: HISTORY OF PRESENT ILLNESS: Chief complaint: Vomiting blood 44-year-old male history of hypertension states he swallowed a piece of plastic earlier now notes he is vomiting blood and is concerned. The patient further states he he was eating a chicken nugget at approximately 10:30 AM. Notes he is eating with a plastic fork. Notes he been to the chicken nugget and noticed that a piece of plastic fork was missing. He notes a plastic fork initiated for prongs and when he finished eating his chicken nugget he noticed only had 3 prongs. States he looked everywhere but cannot find the piece of plastic. Unsure if he swallowed it but is concerned because he has not been feeling right all day. States he has left upper quadrant abdominal pain. REVIEW OF SYSTEMS: Pertinent positives: Hematemesis, Pertinent negatives: Melena, syncope, chest pain PHYSICAL EXAM: Nursing triage notes reviewed, Vital signs reviewed Constitutional: please see mdm HENT: MMM Eyes: Pupils equal round and reactive to light, Extraocular muscles intact Neck: No stridor, no JVD, full neck ROM Lungs: Clear to auscultation, No wheezing or rales. No increased work of breathing, no conversational dyspnea, no accessory muscle use, no nasal flaring. No respiratory distress noted Heart: Regular rate and rhythm, No murmurs, No rubs and No gallops, 2+ distal pulses (radial, femoral, posterior tibial) in all extremities Abdomen: Soft, there is no tenderness, rigidity, rebound or guarding, no obvious peritoneal signs, no palpable pulsatile abdominal masses, no auscultated abdominal bruit : No CVAT Extremities: No edema Neuro: No new focal neurological deficits, cranial nerves II through XII intact, 5/5 strength in all present extremities. Intact sensation to light touch in all present extremities, 2+ reflexes bilateral patella tendons. Skin: No rash or lesions noted MEDICAL DECISION MAKING: Chief Complaint: please see HPI External records reviewed: Reviewed prior imaging studies Factors affecting care hypertension Social determinants of health: none History obtained from others: none Consults: none MDM Narrative: Patient was initially hemodynamically stable, afebrile and nontoxic-appearing. Exam without significant peritoneal signs I considered the following differential diagnosis: Bowel perforation, acute pancreatitis, severe anemia, electrolyte disturbance, hepatobiliary pathology ALL IMAGES (IF OBTAINED) HAVE BEEN PERSONALLY REVIEWED AND INTERPRETED BY MYSELF. CT scan abdomen pelvis with no evidence of obvious perforation CBC with no leukocytosis, mild anemia, no thrombocytopenia CMP without evidence of acute kidney injury, significant electrolyte abnormality, anion gap to suggest end organ hypo-perfusion, no evidence of metabolic acidosis with a normal bicarbonate, no evidence of hepatobiliary obstructive pathology. Lipase is wnl indicating no pancreatic inflammation. The synthesis of the patient's history, physical exam, labs images suggest no acute life or limb-threatening etiology. No occasion for surgical consult acute operating room admission. Unknown etiology. No obvious radiopaque foreign body noted. Patient was given strict return precaution follow-up instructions with gastroenterology The patient and/or family, caregivers express understanding. The patient and/or family, caregivers agrees with the plan. Shared decision making: I will have a discussion with the patient and or visitors regarding risk/benef its of further testing or admission. They will be made aware of of the risk/benefits inherent in this decision they will be given the opportunity to voice understanding. Total critical care time today provided was at least 0 minutes. This excludes separately billable procedures. Critical care time (if documented) is secondary to the patient having high probability of clinically significant/life threatening deterioration in the patient's condition which required my urgent intervention. Impression: 1. Abdominal pain 2. Possible radiolucent foreign Dispo: Discharge home This note was generated with [employer] dictation software. It may contain incorrect words, spelling, and punctuation that were not noted in review of the chart prior to signing. Lab Data Labs: Laboratory Results - last 24 hr 04/30/25 20:34 WBC 10.3 RBC 4.58 L Hgb 14.5 Hct 41.4 MCV 90.4 MCH 31.7 MCHC 35.0 RDW Std Deviation 40.6 RDW Coeff of Lior 12.4 Plt Count 347 MPV 8.7 Immature Gran % (Auto) 0.400 Neut % (Auto) 60.9 Lymph % (Auto) 26.7 [place] % (Auto) 10.3 H Eos % (Auto) 1.1 Baso % (Auto) 0.6 Absolute Neuts (auto) 6.3 Absolute Lymphs (auto) 2.76 Nucleated RBC % 0 Sodium 137 Potassium 3.8 Chloride 103 Carbon Dioxide 22.3 Anion Gap 12 BUN 14 Creatinine 1.03 Estim Creat Clear Calc 88.98 Est GFR (MDRD) Non-Af 92 BUN/Creatinine Ratio 13.4 Glucose 103 H Calcium 9.4 Total Bilirubin 0.67 AST 26 ALT 34 Alkaline Phosphatase 92 Total Protein 7.4 Albumin 4.4 Globulin 3.0 Albumin/Globulin Ratio 1.5 Lipase 33 Radiography Diagnostic Testing: Clinical Impression(s) from Imaging Studies Abdomen/Pelvis CT 04/30/25 20:40 IMPRESSION: Previously described haziness in the mesentery is unchanged, 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 Reading Location: [facility] Discharge Plan Triage Chief Complaint: GI Bleed ED Provider: Carlos Zavala Dx/Rx/DC Orders Prescriptions: No Action lisinopril 10 mg tablet 10 mg PO DAILY Qty: 30 0RF Primary Care Provider: Vivien Gustafson NP Referrals: Vivien Gustafson NP, [employer]GER[employer] [Primary Care Provider] - Print Language: Venezuelan
--- OUTSIDE RECORDS SUMMARY | 2025-04-30 20:31 | XMS RPT_ITS | CCD ---
Author Organization [facility] Care Team Providers Care Bean Viner Name Role Phone Mili 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.ADJUNCT LECTURER, Guilherme SAWYER Primary Care Provider Unavailable Primary Care Provider Unavailabl e Care Physician, No Primary Primary Care Provider Unavailable Dr. Yfn Lugo Attending Provider Dr. Jeison Lennon Referring Provider Don Sullivan MD Primary Care Provider Podlogar 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.Vivien BARRAGAN Unavailable Katy 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.Nehemiah BARRAGAN Unavailable SHAHANA VASQUEZ Referring Unavailable BURSLEY, CHRISTOPHER B Primary Care Unavailab le SELF Referring Unavailable HANSEL, CHRISTOPHER B Primary Care Unavailab le PODLOGAR, VIVIEN Attending Unavailable GUILHERME VILLATORO Primary Care Unavailable PODLOGAR, VIVIEN Referring Unavailable BURSLEY, CHRISTOPHER B Primary Care Unavailab le PODLOGAR, VIVIEN Attending Unavailable HANSEL, CHRISTOPHER B Primary Care Unavailab le PODLOGAR, VIVIEN Referring Unavailable BURSLEY, CHRISTOPHER B Primary Care Unavailab le BURSLEY, CHRISTOPHER B Primary Care Unavailab le BURSLEY, CHRISTOPHER B Primary Care Unavailab Magen Forbes Attending Unavailable Podlogar, Vivien Primary Care Unavailable Guilherme Callahan Attending Unavailable Podlogar, Vivien Primary Care Unavailable Antonio Ortiz Attending Unavailable Podlogar, Vivien Primary Care Unavailable Podlogar [employer]ILRO[employer] DINING CAR STEWARD/STEWARDESS-C, Vivien Primary Care Provider Dr. Magen Chávez DO Attending Provider [phone] Dr. Magen Chávez DO Emergency Provider [phone] Dr. Guilherme Callahan DO Emergency Provider Dr. Antonio Ortiz MD Emergency Provider [phone] Katy 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.Nehemiah BARRAGAN Unavailable Katy 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.YUNGNehemiah Unavailable Allergies Allergy Classification Reported Allergen(s) Allergy Type Date of Onset Reaction(s) Facility (20 sources) Morphine; Translations: [MORPHINE] Drug Allergy 09-01-2021 Vomiting [facility] Work Phone: (20 sources) Naproxen; Translations: [NAPROXEN] Drug Allergy 01-25-2009 GI Upset [facility] Work Phone: (1 source) Morphine Drug Allergy 01-26-2025 [facility] Repository (1 source) Naproxen Drug Allergy 01-26-2025 [facility] Repository Medications Current Medications Medication Drug Class(es) Dates Sig (Normalized) Sig (Original) doxycycline hyclate 100 mg oral tablet (4 sources) Tetracycline-cla ss Drug Start: 02-02-2025 End: 02-09-2025 take 1 tablet by mouth twice daily doxycycline (VIBRA-TABS) 100 mg tablet Indications: Acute cough Take 1 tablet by mouth two times a day for 7 days. 14 tablet 02/02/2025 02/09/2025 Active pantoprazole 40 mg delayed release oral tablet (3 sources) Proton Pump Inhibitor Start: 04-28-2022 take 1 tablet by mouth once daily Pantoprazole (Protonix) 40 mg tablet,delayed release (DR/EC) Active 40 MG PO DAILY April 28, 2022 12:00am perflutren lipid microspheres 1.3 mL in NaCl (PF) 0.9% 10 mL injection (DEFINITY) (5 sources) Start: 02-06-2022 End: 05-08-2023 perflutren lipid microspheres 1.3 mL in NaCl (PF) 0.9% 10 mL injection (DEFINITY) 125 ml sodium chloride 9 mg/ml prefilled syringe (7 sources) Start: 03-21-2021 End: 05-08-2023 sodium chloride 0.9 % (flush) 10 mL (BD POSIFLUSH) Completed/Discontinued Medications Medication Drug Class(es) Dates Sig (Normalized) Sig (Original) dicyclomine hydrochloride 10 mg oral capsule (1 source) Anticholinergic Start: 10-10-2024 End: 01-26-2025 take 1 capsule by mouth three times daily as needed for pain Dicyclomine 10 mg capsule Discontinued 10 mg PO THREE TIMES A DAY as needed for abdominal pain 12 October 10, 2024 11:36pm January 26, 2025 8:00am lisinopril 10 mg oral tablet (20 sources) Angiotensin Converting Enzyme Inhibitor Start: 01-03-2022 End: 2025 take 1 tablet by mouth once daily lisinopril (ZESTRIL) 10 mg tablet Indications: Hypertension, essential Take 1 tablet by mouth once daily. For blood pressure 90 tablet 01/05/2025 04/03/2025 Discontinued Comment on above: Take 1 tablet by patti th once daily. For blood pressure ondansetron 4 mg disintegrating oral tablet (3 sources) Serotonin-3 Receptor Antagonist Start: 09-24-2023 End: 01-26-2025 take 1 tablet by mouth every eight hours as needed for nausea Ondansetron 4 mg tablet,disintegra ting Discontinued 4 mg PO EVERY 8 HOURS NEEDED as needed for Nausea September 24, 2023 12:00am January 26, 2025 8:00am Problems Active Problems Problem Classification Problem Date Documented Da te Episodic/Chronic Administrative/social admission (9 sources) Repeated prescription; Translations: [Encounter for issue of repeat prescription] 04-06-2023 Episodic Cardiac dysrhythmias (18 sources) Palpitations; Translations: [Palpitations] 11-14-2022 Episodic Conditions associated with dizziness or vertigo (18 sources) Dizziness; Translations: [Dizziness and giddiness] 07-12-2020 Episodic Disorders of teeth and jaw (9 sources) Dental abscess; Translations: [Periapical abscess without sinus] 07-13-2021 Episodic Essential hypertension (20 sources) Essential hypertension; Translations: [Essential (primary) hypertension] Onset: 02-06-2022 02-06-2022 Chronic Fever of unknown origin (9 sources) Fever; Translations: [Fever, unspecified] 02-23-2022 Episodic Fluid and electrolyte disorders (9 sources) Acute hyponatremia; Translations: [Hypo-osmolality and hyponatremia] 02-23-2022 Episodic Intracranial injury (8 sources) Concussion injury of brain; Translations: [Concussion with loss of consciousness of unspecified duration, initial encounter] 06-10-2022 Episodic Nonspecific chest pain (20 sources) Atypical chest pain; Translations: [Other chest pain] 12-06-2020 Episodic Other circulatory disease (18 sources) Elevated blood pressure; Translations: [Elevated blood-pressure reading, without diagnosis of hypertension] 12-06-2020 Episodic Other connective tissue disease (9 sources) Pain in calf; Translations: [Pain in right lower leg] 07-09-2020 Episodic Other gastrointestinal disorders (20 sources) Constipation; Translations: [Constipation, unspecified] 04-06-2023 Episodic Other gastrointestinal disorders (5 sources) Acute diarrhea; Translations: [Diarrhea, unspecified] 11-22-2022 Episodic Other injuries and conditions due to external causes (9 sources) Closed injury of head; Translations: [Unspecified injury of head, initial encounter] 02-04-2022 Episodic Other injuries and conditions due to external causes (7 sources) Effects of heat; Translations: [Effect of heat and light, unspecified, initial encounter] 07-07-2022 Episodic Other liver diseases (2 sources) Increased bilirubin level; Translations: [Unspecified jaundice] 03-24-2024 Episodic Other lower respiratory disease (9 sources) Dyspnea on exertion; Translations: [Shortness of breath] 01-11-2022 Episodic Other lower respiratory disease (16 sources) Cough; Translations: [Cough] 02-23-2022 Episodic Other lower respiratory disease (2 sources) Cough; Translations: [Acute cough] 02-02-2025 Episodic Other nutritional; endocrine; and metabolic disorders (18 sources) Obese class I; Translations: [Obesity, unspecified] Onset: 02-06-2022 02-06-2022 Chronic Other nutritional; endocrine; and metabolic disorders (1 source) Excessive thirst; Translations: [Polydipsia] 03-18-2024 Episodic Other skin disorders (2 sources) Cyst of skin; Translations: [Follicular cyst of the skin and subcutaneous tissue, unspecified] 02-02-2025 Episodic Spondylosis; intervertebral disc disorders; other back problems (7 sources) Low back pain; Translations: [Low back pain] 07-07-2022 Episodic Sprains and strains (11 sources) Strain of thoracic region; Translations: [Strain of muscle and tendon of unspecified wall of thorax, initial encounter] 02-24-2022 Episodic Unclassified (1 source) feels like a pulled muscle in his abdomen Onset: 02-03-2025 Unclassified (1 source) Acute cough; Translations: [Acute cough] Onset: 02-02-2025 Past or Other Problems Problem Classification Problem Date Documented Da te Episodic/Chronic Abdominal pain (20 sources) Right upper quadrant pain; Translations: [Right upper quadrant pain] Onset: 12-06-2020 12-06-2020 Episodic Genitourinary symptoms and ill-defined conditions (2 sources) Polyuria; Translations: [Polyuria] Onset: 03-21-2024 03-18-2024 Episodic Malaise and fatigue (9 sources) Malaise and fatigue; Translations: [Other malaise] Onset: 03-21-2024 07-07-2022 Episodic Other liver diseases (1 source) Unspecified jaundice; Translations: [Elevated bilirubin] Onset: 04-15-2024 Episodic Other nutritional; endocrine; and metabolic disorders (1 source) Polydipsia; Translations: [Polydipsia] Onset: 03-21-2024 Episodic Other screening for suspected conditions (not mental disorders or infectious disease) (2 sources) Patient encounter status; Translations: [Encounter for screening for lipoid disorders] Onset: 03-21-2024 03-18-2024 Episodic Results Test Name Value Interpretation Reference Range [facility] 02-09-2025 [facility] Telephone [facility] ARTIE CABRERA ([id number]) 1980 M Date Time Provider Department 02/09/25 [facility] During your visit today, we recorded the following information about you: Rhonda Rahman APRN.ADJUNCT LECTURER 02/09/2025 9:07 AM Signed Patient was seen at [facility] on February 02, 2025 for abdominal pain. Pain was intermittent, gradual onset, described as cramping in the right upper quadrant. Negative for nausea vomiting. Negative for diarrhea, melena, or hematochezia. Negative for dysuria, frequency, hematuria or urgency. Patient is a 44-year-old male with a history of hypertension. No prior abdominal surgeries and has a history of right-sided abdominal pain without specific diagnosis. This has been worked up in the past. HIDA scan the [facility] showed sludge but did not need surgery at the time. He is having recurrent pain. Denies nausea vomiting. Having yellowish stools. No melena or hematic emesis. No fever. No weight loss. No dysuria. Blood pressure 133/80, heart rate 112, respirations 20, temp 97.5, 97% on room air. CT scan did not show anything specific. Had a prior HIDA scan. Ultrasound today. Given Toradol for pain. Labs were obtained. Labs are unremarkable. WBC 12.8, hemoglobin 14.1, hematocrit 40.9, platelet count 443 Neutrophils 72.5, lymphocytes 15.9 Sodium 133, potassium 4.2, BUN 18, creatinine 1.13, glucose 110 Calcium 9.2 AST 28, ALT 32, alkaline phosphatase 104 Lipase 51 Gallbladder is contracted on ultrasound. No evidence of Tanna lithiasis. Patient ate 3 hours ago Allergies As of Date: 02/09/2025 Noted Allergy Reaction NAPROXEN 01/25/2009 8 - GI Upset MORPHINE 09/01/2021 11 - Vomiting Comments: dizziness Date Reviewed: 02/03/2025 Reviewed by: Alana Jordan LPN - Fully Assessed Prescriptions as of 02/09/2025 - doxycycline (VIBRA-TABS) 100 mg tablet Take 1 tablet by mouth two times a day for 7 days. - lisinopril (ZESTRIL) 10 mg tablet Take 1 tablet by mouth once daily. For blood pressure Problem List As Of Date 02/09/2025 Noted Resolved Atypical chest pain [R07.89] Chronic RUQ pain [R10.11, G89.29] 12/06/2020 Elevated blood pressure reading [R03.0] Obesity, Class I, BMI 30-34.9 [E66.811] 02/06/2022 Hypertension, essential [I10] 02/06/2022 Encounter Status:Closed by RHONDA RAHMAN on 02/09/25 Normal [facility] CNOVon 02-03-2025 CNOV Office Visit (UCWSTR ) ARTIE CABRERA ([id number]) 1980 M Date Time Provider Department 02/03/25 1:30 PM SHAHANA VASQUEZ [facility] During your visit today, we recorded the following information about you: Temperature Pulse Respiration Blood pressure 98.7 degrees 113/minute 16/minute 122/78 Weight 94.2 kg Shahana Vasquez APRN.CNP 02/03/2025 1:49 PM Signed This note was created using QBInternationalriter. Subjective Artie Cabrera is a 44 year old male. 44 year old male with PMH HTN presents for abdominal pain Ongoing, In fact, patient seen here yesterday for multiple complaints which included abdominal pain Right upper quadrant pain Intermittent X 1 month Denies fever or chills +nausea at times Denies emesis He was seen here yesterday Labs obtained US ordered Labs normal, no US obtained He went to the ED last night for complaints of abdominal pain States US completed there Denies tobacco usage The history is provided by the patient. No diplomatic interpreter/translator was used. Abdominal Pain This is a new problem. The current episode started more than 1 week ago. The problem occurs every several days. The problem has not changed since onset.The pain is associated with an unknown factor. The pain is located in the RUQ. The pain is at a severity of 5/10. The pain is moderate. Pertinent negatives include arthralgias. Nothing aggravates the symptoms. Nothing relieves the symptoms. Past workup does not include GI consult, CT scan, ultrasound, surgery or barium enema. His past medical history does not include PUD, gallstones, GERD, ulcerative colitis, Crohn's disease or irritable bowel syndrome. PAST MEDICAL HISTORY Diagnosis Date Atypical chest pain Elevated blood pressure reading Hypertension, essential 02/06/2022 Obesity, Class I, BMI 30-34.9 02/06/2022 Painful respiration pleurisy PAST SURGICAL HISTORY Procedure Laterality Date PAST SURGICAL HISTORY OF teeth extractions ALLERGIES Naproxen and Morphine MEDICATIONS doxycycline (VIBRA-TABS) 100 mg tablet Take 1 tablet by mouth two times a day for 7 days. lisinopril (ZESTRIL) 10 mg tablet Take 1 tablet by mouth once daily. For blood pressure FAMILY HISTORY Problem Relation Age of Onset other (Gallbladder cancer) Mother None Father No Known Problems Maternal Grandmother No Known Problems Maternal Grandfather other (Brain tumor) Paternal Grandmother No Known Problems Paternal Grandfather Social History Tobacco Use Smoking status: Former Current packs/day: 0.00 Average packs/day: 3.0 packs/day for 10.0 years (30.0 ttl pk-yrs) Types: Cigarettes Start date: 12/26/2009 Quit date: 12/26/2019 Years since quittin.1 Smokeless tobacco: Never Tobacco comments: june 2005. Vaping Use Vaping status: Never Used Substance Use Topics Alcohol use: No Drug use: No Comment: none since 2004 marijuana Review of Systems Eyes: Negative for pain, discharge and itching. Respiratory: Negative for apnea, cough, choking and chest tightness. Cardiovascular: Negative for chest pain, palpitations and leg swelling. Gastrointestinal: Positive for abdominal pain. Musculoskeletal: Negative for arthralgias, back pain and gait problem. Skin: Negative for color change, pallor, rash and wound. Allergic/Immunologic: Negative for environmental allergies, food allergies and immunocompromised state. Hematological: Negative for adenopathy. Does not bruise/bleed easily. Psychiatric/Behavioral : Negative for agitation and behavioral problems. Objective BP 122/78 Pulse 113 Temp 37.1 ?C (98.7 ?F) (Tympanic) Resp 16 Wt 94.2 kg (207 lb 10.8 oz) SpO2 99% BMI 36.80 kg/m? Physical Exam Vitals and nursing note reviewed. Constitutional: General: He is not in acute distress. Appearance: Normal appearance. He is obese. He is not ill-appearing, toxic-appearing or diaphoretic. HENT: Head: Normocephalic and atraumatic. Comments: Head with multiple sebaceous cysts noted Right Ear: External ear normal. Left Ear: External ear normal. Nose: Nose normal. No congestion or rhinorrhea. Mouth/Throat: Mouth: Mucous membranes are moist. Pharynx: Oropharynx is clear. No oropharyngeal exudate or posterior oropharyngeal erythema. Eyes: General: Right eye: No discharge. Left eye: No discharge. Extraocular Movements: Extraocular movements intact. Conjunctiva/sclera: Conjunctivae normal. Pupils: Pupils are equal, round, and reactive to light. Cardiovascular: Rate and Rhythm: Regular rhythm. Pulses: Normal pulses. Heart sounds: Normal heart sounds. No murmur heard. No friction rub. No gallop. Pulmonary: Effort: Pulmonary effort is normal. No respiratory distress. Breath sounds: Normal breath sounds. No stridor. No wheezing, rhonchi or rales. Chest: Chest wall: No tenderness. Abdominal: General: Abdomen is flat. T (more content not included)... Normal [facility] Absolute neutrophil countOrd ered By: ED PROVIDER on 02-02-2025 Neutrophils (Bld) [#/Vol] 9.3 10*3/uL High 2.0-7.7 [facility] Anion gap in Serum or Plasma Ordered By: ED PROVIDER on 02-02-2025 Anion gap [Moles/Vol] 12 mmol/L 5-15 [facility] BUN/creatinine ratioOrdered By: ED PROVIDER on 02-02-2025 Urea nitrogen/Creatinine [Mass ratio] 16.1 mg/mg 10-20 [facility] Bacteria Wnd Culton 02-03-20 25 Bacteria identified Cx Nom (Wound) ORGANISM ID: 1 Few skin shala GRAM STAIN: Few Gram positive cocci Rare Gram negative bacilli Rare Polymorphonuclear leukocytes Abnormal [facility] Comment on above: Performed By: #### 6 [id number] ####[facility] LABCLIA [id number] [place] [address] [place] Basophil percentageOrdered B y: ED PROVIDER on 02-02-2025 Basophils/100 WBC (Bld) 0.7 % 0-1 [facility] Bilirubin, totalOrdered By: ED PROVIDER on 02-02-2025 Bilirubin [Mass/Vol] 0.65 mg/dL 0.00-1.30 [facility] CBC W/Diff, Automatedon 01-23 Absolute Lymph 2.04 X10 3/uL Normal 0.83-4.51 [facility] Comment on above: Performed By: #### L [id number], [id number], L100.0100 #### [facility] [address] [place], [address] Absolute Neut 9.3 X10 3/uL High 2.0-7.7 [facility] Comment on above: Performed By: #### L [id number], [id number], L100.0100 #### [facility] [address] [place], [address] Basophils/100 WBC (Bld) 0.7 % Normal 0-1 [facility] Comment on above: Performed By: #### L [id number], [id number], L100.0100 #### [facility] [address] [place], [address] Eosinophils/100 WBC (Bld) 1.0 % Normal 0-5 [facility] Comment on above: Performed By: #### L [id number], [id number], L100.0100 #### [facility] [address] [place], [address] Erythrocyte distribution width (RBC) [Ratio] 12.0 % Normal 11.6-14.6 [facility] Comment on above: Performed By: #### L [id number], [id number], L100.0100 #### [facility] [address] [place], [address] Hematocrit (Bld) [Volume fraction] 40.9 % Normal 40-54 [facility] Comment on above: Performed By: #### L [id number], [id number], L100.0100 #### [facility] [address] [place], [address] Hemoglobin (Bld) [Mass/Vol] 14.1 g/dL Normal 13.0-16.5 [facility] Comment on above: Performed By: #### L [id number], [id number], L100.0100 #### [facility] [address] [place], [address] IG% 0.400 Normal 0.0-0.9 [facility] Comment on above: Result Comment: IG% - Immature Granulocytes (promyelocytes, myelocytes and metamyelocytes) > 1% indicates that a LEFT SHIFT is Present. Performed By: #### L [id number], [id number], L100.0100 #### [facility] [address] [place], [address] Lymphocytes/100 WBC (Bld) 15.9 % Low 19-41 [facility] Comment on above: Performed By: #### L [id number], [id number], L100.0100 #### [facility] [address] [place], [address] MCH (RBC) [Entitic mass] 30.9 pg Normal 27.0-32.0 [facility] Comment on above: Performed By: #### L [id number], [id number], L100.0100 #### [facility] [address] [place], [address] MCHC (RBC) [Mass/Vol] 34.5 g/dL Normal 32-36 [facility] Comment on above: Performed By: #### L [id number], [id number], L100.0100 #### [facility] [address] [place], [address] MCV (RBC) [Entitic vol] 89.7 fL Normal 80-94 [facility] Comment on above: Performed By: #### L [id number], [id number], L100.0100 #### [facility] [address] [place], [address] Monocytes/100 WBC (Bld) 9.5 % Normal 0-10 [facility] Comment on above: Performed By: #### L [id number], [id number], L100.0100 #### [facility] [address] [place], [address] Neutrophils/100 WBC (Bld) 72.5 % High 47-70 [facility] Comment on above: Performed By: #### L [id number], [id number], L100.0100 #### [facility] [address] [place], [address] Nucleated RBC (Bld) [#/Vol] 0 10*3/uL Normal 0-5 [facility] Comment on above: Performed By: #### L [id number], [id number], L100.0100 #### [facility] [address] [place], [address] Platelet mean volume (Bld) [Entitic vol] 8.4 fL Normal 6.2-12.0 [facility] Comment on above: Performed By: #### L [id number], [id number], L100.0100 #### [facility] [address] [place], [address] Platelets (Bld) [#/Vol] 443 10*3/uL Normal 150-450 [facility] Comment on above: Performed By: #### L 501.2450, [id number], L100.0100 #### [facility] [address] [place], [address] RBC (Bld) [#/Vol] 4.56 10*6/uL Low 4.6-6.2 [facility] Comment on above: Performed By: #### L 501.2450, [id number], L100.0100 #### [facility] [address] [place], [address] RDW SD 38.6 fl Normal 35.1-43.9 [facility] Comment on above: Performed By: #### L [id number], [id number], L100.0100 #### [facility] [address] [place], [place], [id number] WBC (Bld) [#/Vol] 12.8 10*3/uL High 4.4-11.0 [facility] Comment on above: Performed By: #### L 501.2450, [id number], L100.0100 #### [facility] [address] [place], [place], [id number] CNOVon 02-02-2025 CNOV Office Visit (UCWSTR ) DEBORAHARTIE Handy ([id number]) 1980 M Date Time Provider Department 02/02/25 8:30 AM SHAHANA VASQUEZ [facility] During your visit today, we recorded the following information about you: Temperature Pulse Respiration Blood pressure 97 degrees 87/minute 20/minute 121/84 Weight 92 kg Shahana Vasquez APRN.ADJUNCT LECTURER 02/02/2025 9:54 AM Signed This note was created using NoteWriter. Subjective Artie Cabrera is a 44 year old male. 44 year old male with PMH HTN presents for multiple complaints 1. Cyst Had it my whole life Endorses that it has recently a month Oozing Has been using band aids 2. Cough A while x one month +productive at times Non productive at others +chest wall pain with coughing Right sided think I am pulling a muscle Cough medicine Denies CP Denies hemoptysis Denies accompanying eye, nose or throat 3. Right upper quadrant pain Intermittent X 1 month Think my gallbladder is on the barton Denies fever or chills +nausea at times Denies emesis Denies pain presently Denies seeking medical treatment Denies tobacco usage The history is provided by the patient. No diplomatic interpreter/translator was used. Cough This is a new problem. The current episode started more than 1 week ago. The problem occurs constantly. The problem has not changed since onset.Cough characteristics: productive/non productive. There has been no fever. Pertinent negatives include no chest pain, no chills, no sweats, no weight loss, no ear congestion, no ear pain, no headaches, no rhinorrhea, no sore throat, no myalgias, no shortness of breath, no wheezing and no eye redness. He has tried cough syrup for the symptoms. The treatment provided no relief. He is not a smoker. His past medical history does not include bronchitis, pneumonia, bronchiectasis, COPD, emphysema or asthma. Abdominal Pain This is a new problem. The current episode started more than 1 week ago. The problem occurs every several days. The problem has not changed since onset.The pain is associated with an unknown factor. The pain is located in the RUQ. The pain is at a severity of 5/10. The pain is moderate. Associated symptoms include nausea. Pertinent negatives include anorexia, fever, belching, diarrhea, flatus, hematochezia, melena, vomiting, constipation, dysuria, frequency, hematuria, headaches, arthralgias and myalgias. Nothing aggravates the symptoms. Nothing relieves the symptoms. Past workup does not include GI consult, CT scan, ultrasound, surgery or barium enema. His past medical history does not include PUD, gallstones, GERD, ulcerative colitis, Crohn's disease or irritable bowel syndrome. PAST MEDICAL HISTORY Diagnosis Date Atypical chest pain Elevated blood pressure reading Hypertension, essential 02/06/2022 Obesity, Class I, BMI 30-34.9 02/06/2022 Painful respiration pleurisy PAST SURGICAL HISTORY Procedure Laterality Date PAST SURGICAL HISTORY OF teeth extractions ALLERGIES Naproxen and Morphine MEDICATIONS lisinopril (ZESTRIL) 10 mg tablet Take 1 tablet by mouth once daily. For blood pressure doxycycline (VIBRA-TABS) 100 mg tablet Take 1 tablet by mouth two times a day for 7 days. FAMILY HISTORY Problem Relation Age of Onset other (Gallbladder cancer) Mother None Father No Known Problems Maternal Grandmother No Known Problems Maternal Grandfather other (Brain tumor) Paternal Grandmother No Known Problems Paternal Grandfather Social History Tobacco Use Smoking status: Former Current packs/day: 0.00 Average packs/day: 3.0 packs/day for 10.0 years (30.0 ttl pk-yrs) Types: Cigarettes Start date: 12/26/2009 Quit date: 12/26/2019 Years since quittin.1 Smokeless tobacco: Never Tobacco comments: june 2005. Vaping Use Vaping status: Never Used Substance Use Topics Alcohol use: No Drug use: No Comment: none since 2004 marijuana Review of Systems Constitutional: Negative for chills, fever and weight loss. HENT: Negative for congestion, ear pain, rhinorrhea and sore throat. Eyes: Negative for redness. Respiratory: Positive for cough. Negative for shortness of breath and wheezing. Cardiovascular: Negative for chest pain. Gastrointestinal: Positive for abdominal pain and nausea. Negative for anorexia, constipation, diarrhea, flatus, hematochezia, melena and vomiting. Endocrine: Negative for cold intolerance, heat intolerance and polydipsia. Genitourinary: Negative for dysuria, frequency and hematuria. Musculoskeletal: Negative for arthralgias and myalgias. Skin: Negative for color change, pallor, rash and wound. Allergic/Immunologic: Negative for environmental allergies, food allergies and immunocompromised state. Neurological: Negative for dizziness, facial asymmetry and headaches. Hematological: Negative for adenopathy. Does (more content not included)... Normal [facility] Carbon dioxide, total [Moles /volume] in Central venous bloodOrdered By: ED PROVIDER on 02-02-2025 CO2 [Moles/Vol] 22.2 mmol/L 21.0-32.0 [facility] Chloride assayOrdered By: ED PROVIDER on 02-02-2025 Chloride [Moles/Vol] 99 mmol/L 98-108 [facility] Comprehensive Metabolic Prof ilon 02-02-2025 Albumin [Mass/Vol] 4.3 g/dL Normal 3.5-5.0 [facility] Comment on above: Performed By: #### L 501.5520, L500.4050, L100.0100 #### [facility] [address] [place], [address] Albumin/Globulin [Mass ratio] 1.3 {ratio} Normal 0.9-2.4 [facility] Comment on above: Performed By: #### L 501.2450, L500.4050, L100.0100 #### [facility] [address] [place], [address] ALK PHOS 104 U/L Normal 40-129 [facility] Comment on above: Performed By: #### L 501.2450, L500.4050, L100.0100 #### [facility] [address] [place], [address] ALT [Catalytic activity/Vol] 32 U/L Normal <=46 [facility] Comment on above: Performed By: #### L 501.2450, L500.4050, L100.0100 #### [facility] [address] [place], [address] AST [Catalytic activity/Vol] 28 U/L Normal <=37 [facility] Comment on above: Performed By: #### L 501.2450, L500.4050, L100.0100 #### [facility] [address] [place], [address] Bilirubin [Mass/Vol] 0.65 mg/dL Normal 0.00-1.30 [facility] Comment on above: Performed By: #### L 501.2450, L500.4050, L100.0100 #### [facility] [address] [place], [address] BUN/CRE 16.1 RATIO Normal 10-20 [facility] Comment on above: Performed By: #### L 501.2450, L500.4050, L100.0100 #### [facility] [address] [place], [address] Calcium [Mass/Vol] 9.2 mg/dL Normal 7.6-11.0 [facility] Comment on above: Performed By: #### L 501.2450, L500.4050, L100.0100 #### [facility] [address] [place], [address] Chloride [Moles/Vol] 99 mmol/L Normal 98-108 [facility] Comment on above: Performed By: #### L 501.2450, L500.4050, L100.0100 #### [facility] [address] [place], [address] CO2 [Moles/Vol] 22.2 mmol/L Normal 21.0-32.0 [facility] Comment on above: Performed By: #### L 501.2450, L500.4050, L100.0100 #### [facility] [address] [place], [address] Creatinine [Mass/Vol] 1.13 mg/dL Normal 0.70-1.20 [facility] Comment on above: Performed By: #### L 501.2450, L500.4050, L100.0100 #### [facility] [address] [place], [address] ECRCL 81.96 ml/min Normal 50-250 [facility] Comment on above: Performed By: #### L 501.2450, L500.4050, L100.0100 #### [facility] [address] [place], [address] GAP 12 Normal 5-15 [facility] Comment on above: Performed By: #### L 501.2450, L500.4050, L100.0100 #### [facility] [address] [place], [address] GFR/1.73 sq M.predicted among non-blacks MDRD (S/P/Bld) [Vol rate/Area] 82 mL/min/{1.73_m2} Normal >60 [facility] Comment on above: Result Comment: mL/m in/1.73m2 CKD-EPI Creatinine Equation (2020) Performed By: #### L 501.2450, L500.4050, L100.0100 #### [facility] [address] [place], [address] Globulin (S) [Mass/Vol] 3.2 g/dL Normal 2.2-4.2 [facility] Comment on above: Performed By: #### L 501.2450, L500.4050, L100.0100 #### [facility] [address] [place], [address] Glucose [Mass/Vol] 110 mg/dL High 70-99 [facility] Comment on above: Performed By: #### L 501.2450, L500.4050, L100.0100 #### [facility] [address] [place], [address] Potassium [Moles/Vol] 4.2 mmol/L Normal 3.3-5.1 [facility] Comment on above: Performed By: #### L 501.2450, L500.4050, L100.0100 #### [facility] [address] [place], [address] Sodium [Moles/Vol] 133 mmol/L Normal 133-145 [facility] Comment on above: Performed By: #### L 501.2450, L500.4050, L100.0100 #### [facility] [address] [place], [address] T PROT 7.4 g/dL Normal 5.9-8.4 [facility] Comment on above: Performed By: #### L 501.2450, L500.4050, L100.0100 #### [facility] [address] [place], [address] Urea nitrogen [Mass/Vol] 18 mg/dL Normal 4-19 [facility] Comment on above: Performed By: #### L 501.2450, L500.4050, L100.0100 #### [facility] [address] [place], [address] Emergency Department Summary on 02-02-2025 Emergency Department Summary [facility] Medical Records Department [address] [place] [address] Emergency Department Summary 02/02/25 MR#: [id number] Acct: [id number] Name: ARTIE CABRERA Rep #: [id number] : 1980 44 From: Antonio Ortiz MD PCP: Vivien Gustafson, [employer]STEWARDESS-C Status:DEP ER Location: ED HPI HPI - GI History of Present Illness Chief Complaint: Abd Pain Informant: patient Abdominal Pain/Flank Pain Onset: Days Context: Gradual Onset Timing: Intermittent Quality: Cramping Location: RUQ Current Severity: Mild Maximum Severity: Mild Worsened by: Nothing Relieved by: Nothing Nausea/Vomiting/Emesis GI Symptom: Negative for Nausea or Vomiting Diarrhea/Melena/Hemato chezia GI Symptom: Negative for Diarrhea, Melena or Hematochezia Associated Symptoms Associated Symptoms: Negative for Dysuria, Frequency, Hematuria or Urgency Narrative Narrative: 44-year-old male history of hypertension. No prior abdominal surgeries. He has had a history of right-sided abdominal pain without any specific diagnosis. Said this worked up in the past. He had a HIDA scan at the [facility] which showed sludge but he did not need surgery at that time. He is having recurrent pain. He denies vomiting or diarrhea. Says he is having yellowish stool. Denies any melena. No hematemesis. No fever. No weight loss. Denies any dysuria. Prior similar symptoms: Yes Recent Illness/Hospitalizatio n: No PFSH PFSH Medical History Irregular heart beat HTN (hypertension) Home Medications ???Medication ???Instructions ???Recorded ???Last Taken ???Type lisinopril 10 mg tablet 10 mg PO DAILY blood pressure #30 11/14/22 Unknown Rx tabs Allergy/AdvReac Type Severity Reaction Status Date / Time morphine AdvReac Upset Verified 01/26/25 07:00 Stomach naproxen AdvReac Upset Verified 01/26/25 07:00 Stomach Surgical History History of dental surgery Social History Smoking Status: Former smoker substance use type: does not use ROS ROS ED ROS Narrative Abdominal pain. Constitutional Constitutional ED: Denies chills or fever(s) ENT ENT ED: Denies ear pain Cardiovascular Cardiovascular: Denies chest pain Respiratory/Chest Respiratory/Chest: Denies cough or dyspnea Gastrointestinal Gastrointestinal: Reports abdominal pain; Denies constipation, diarrhea, melena, nausea or vomiting Genitourinary Genitourinary ED: Denies dysuria or hematuria Musculoskeletal Musculoskeletal: Denies arthralgias or back pain Integumentary Denies abscess or Abrasions Neurologic Neurologic: Denies headache(s) Psychiatric Psychiatric: Denies anxiety or depression Endocrine Endocrinology: Denies polydipsia or polyphagia Hematologic/Lymphatic Hematologic/Lymphatic: Denies easy bleeding Allergic/Immunologic Allergic/Immunologic ED: Denies mouth swelling, tongue swelling or urticaria EXAM Physical Exam Narrative Exam Narrative: Well-appearing middle-age male. Vital signs are stable afebrile. He does not look septic or toxic. He is in no acute distress. Sitting upright in bed. Currently states his pain is not bad at all. He denies any nausea or vomiting. Denies any fever. H EENT exam pupils round reactive light. No icterus. Moist use membranes. Lungs clear to auscultation bilaterally. Heart regular rhythm rate about 100 no murmur. Chest wall ribs nontender. He has mild right upper abdominal tenderness but not specifically in the right upper quadrant. There is no hernia or mass. There is no signs of distention or obstruction. There is no pulsatile mass. He has absolutely no right lower quadrant or left-sided abdominal tenderness. He is moving all 4 extremities. There are nontender no edema. Normal strength. Back nontender. Neurologically is awake and alert. No focal motor deficits. Const Vital Signs: 02/02/25 13:00 02/02/25 15:00 Temperature 97.5 F L Temperature Source Temporal Pulse Rate 112 H 78 Respiratory Rate 20 H 18 Blood Pressure 133/80 H Blood Pressure Mean 97 Pulse Ox 97 98 Oxygen Delivery Method Room Air Room Air Positive well nourished and well developed; Negative for cachectic, contractures or unkempt General Appearance ED: well developed; Negative for unkempt, cachectic, contractures or pallor Nutritional Appearance: Negative for cachectic HEENT normocephalic and atraumatic Eyes PERRL and EOMs intact bilaterally General Eye ED: Negative for pale conjunctiva, scleral icterus or other Neck no lymphadenopathy, supple and no JVD General: Negative for tenderness Carotids: Negative for other Resp normal respiratory effort and clear to auscultation bilaterally Ef (more content not included)... Normal [facility] Eosinophil percentageOrdered By: ED PROVIDER on 02-02-2025 Eosinophils/100 WBC (Bld) 1.0 % 0-5 [facility] Erythrocyte distribution wid th ratioOrdered By: ED PROVIDER on 02-02-2025 Erythrocyte distribution width (RBC) [Ratio] 12.0 % 11.6-14.6 [facility] Erythrocyte distribution wid th standard deviationOrdered By: ED PROVIDER on 02-02-2025 Erythrocyte distribution width (RBC) [Entitic vol] 38.6 fL 35.1-43.9 [facility] Estimation of creatinine adriel aranceOrdered By: ED PROVIDER on 02-02-2025 Estimated Creatinine Clearance Calc 81.96 ml/min 50-250 [facility] GFR/1.73 sq M.predicted liset g non-blacks MDRD (S/P/Bld) [Vol rate/Area]Ordered By: ED PROVIDER on 02-02-2025 Estimated GFR (MDRD) Non-Af Amer 82 >60 [facility] Comment on above: mL/min/1.73m2 CKD-EP I Creatinine Equation (2020) Gallbladderon 02-02-2025 Gallbladder [facility] Imaging Services [address] [place] [address] Gallbladder MR#: [id number] Acct: [id number] Name: ARTIE CABRERA Rep #: [id number] : 1980 M 44 From: Goran moreno MD PCP: Vivien Gustafson, [employer]STEWARDESS-C Status: REG ER Study: Gallbladder Date of Exam: 02/02/25 Exam# [id number] Ordering Dr: Antonio Ortiz MD PROCEDURE: Ultrasound of the right upper quadrant. REASON FOR EXAM: RUQ PAIN COMPARISON: None FINDINGS: Liver: Grossly normal size and echotexture. Gallbladder: The gallbladder is contracted. The gallbladder wall measures 2.3 mm. Patient ate 3 hours ago. Common bile duct: Normal measuring it measures 3.1 mm.. Pancreas: Visualized portions are sonographically unremarkable. Visualized portions of the right kidney are unremarkable. No right upper quadrant ascites. US/Gallbladder IMPRESSION: The gallbladder is contracted. No evidence of cholelithiasis. The patient ate 3 hours ago. Reading Location: [place] [address] CC: AMY Puga Podlogalvaro; Dr. Antonio Ortiz MD Signal Tester: Signed Normal [facility] Hematocrit Auto (Bld) [Volum e fraction]Ordered By: ED PROVIDER on 02-02-2025 Hematocrit (Bld) [Volume fraction] 40.9 % 40-54 [facility] Hemoglobin measurementOrdere d By: ED PROVIDER on 02-02-2025 Hemoglobin (Bld) [Mass/Vol] 14.1 g/dL 13.0-16.5 [facility] Immature granulocytes/100 WB C Auto (Bld)Ordered By: ED PROVIDER on 02-02-2025 Immature granulocytes/100 WBC (Bld) 0.400 % 0.0-0.9 [facility] Comment on above: IG% - Immature Granu locytes (promyelocytes, myelocytes and metamyelocytes) > 1% indicates that a LEFT SHIFT is Present. Laboratory - Chemistry and C hemistry - challengeOrdered By: ED PROVIDER on 02-02-2025 AST [Catalytic activity/Vol] 28 U/L <38 [facility] Lipaseon 02-02-2025 Lipase [Catalytic activity/Vol] 51 U/L Normal 13-75 [facility] Comment on above: Result Comment: Traci garcia note: LIPASE revised reference range effective 23. New Lipase methodology. Expected to produce lower values than the previous assay method. NEW Reference Range: 13 - 75 U/L Performed By: #### L 501.2450, L500.4050, L100.0100 #### [facility] [address] [address], [address] Lipase measurementOrdered By : ED PROVIDER on 02-02-2025 Lipase [Catalytic activity/Vol] 51 U/L 13-75 [facility] Comment on above: Please note:LIPASE r evised reference range effective 23. New Lipase methodology. Expected to produce lower values than the previous assay method. NEW Reference Range: 13 - 75 U/L Lymphocytes Auto (Unsp spec) [#/Vol]Ordered By: ED PROVIDER on 02-02-2025 Lymphocytes (Bld) [#/Vol] 2.04 10*3/uL 0.83-4.51 [facility] Lymphocytes/100 WBC Auto (Un sp spec)Ordered By: ED PROVIDER on 02-02-2025 Lymphocytes/100 WBC (Bld) 15.9 % Low 19-41 [facility] MCV (mean corpuscular volume ) determinationOrdered By: ED PROVIDER on 02-02-2025 MCV (RBC) [Entitic vol] 89.7 fL 80-94 [facility] Mean corpuscular hemoglobin (MCH) determinationOrdered By: ED PROVIDER on 02-02-2025 MCH (RBC) [Entitic mass] 30.9 pg 27.0-32.0 [facility] Mean corpuscular hemoglobin concentration (MCHC) determinationOrdered By: ED PROVIDER on 02-02-2025 MCHC (RBC) [Mass/Vol] 34.5 g/dL 32-36 [facility] Mean platelet volume determi nationOrdered By: ED PROVIDER on 02-02-2025 Platelet mean volume (Bld) [Entitic vol] 8.4 fL 6.2-12.0 [facility] Monocyte percentageOrdered B y: ED PROVIDER on 02-02-2025 Monocytes/100 WBC (Bld) 9.5 % 0-10 [facility] Neutrophil percentageOrdered By: ED PROVIDER on 02-02-2025 Neutrophils/100 WBC (Bld) 72.5 % High 47-70 [facility] Nucleated red blood cell per centageOrdered By: ED PROVIDER on 02-02-2025 Nucleated RBC/100 WBC (Bld) [Ratio] 0 % 0-5 [facility] Platelet countOrdered By: ED PROVIDER on 02-02-2025 Platelets (Bld) [#/Vol] 443 10*3/uL 150-450 [facility] Potassium (Unsp spec) [Mass/ Vol]Ordered By: ED PROVIDER on 02-02-2025 Potassium [Moles/Vol] 4.2 mmol/L 3.3-5.1 [facility] RBC Auto (Bld) [#/Vol]Ordere d By: ED PROVIDER on 02-02-2025 RBC (Bld) [#/Vol] 4.56 10*6/uL Low 4.6-6.2 [facility] Serum creatinine measurement (mass/volume)Ordered By: ED PROVIDER on 02-02-2025 Creatinine [Mass/Vol] 1.13 mg/dL 0.70-1.20 [facility] Serum globulin measurementOr dered By: ED PROVIDER on 02-02-2025 Globulin (S) [Mass/Vol] 3.2 g/dL 2.2-4.2 [facility] Serum glucose measurement (m ass/volume)Ordered By: ED PROVIDER on 02-02-2025 Glucose [Mass/Vol] 110 mg/dL High 70-99 [facility] Serum or plasma alanine mendoza otransferase (ALT) measurementOrdered By: ED PROVIDER on 02-02-2025 ALT [Catalytic activity/Vol] 32 U/L <47 [facility] Serum or plasma albumin mayte urement (mass/volume)Ordered By: ED PROVIDER on 02-02-2025 Albumin [Mass/Vol] 4.3 g/dL 3.5-5.0 [facility] Serum or plasma albumin/glob ulin mass ratioOrdered By: ED PROVIDER on 02-02-2025 Albumin/Globulin [Mass ratio] 1.3 {ratio} 0.9-2.4 [facility] Serum or plasma alkaline ritika sphatase measurementOrdered By: ED PROVIDER on 02-02-2025 ALP [Catalytic activity/Vol] 104 U/L 40-129 [facility] Serum or plasma calcium mayte urement (mass/volume)Ordered By: ED PROVIDER on 02-02-2025 Calcium [Mass/Vol] 9.2 mg/dL 7.6-11.0 [facility] Serum or plasma urea nitroge n measurement (mass/volume)Ordered By: ED PROVIDER on 02-02-2025 Urea nitrogen [Mass/Vol] 18 mg/dL 4-19 [facility] Sodium levelOrdered By: ED P ROKELSIDER on 02-02-2025 Sodium [Moles/Vol] 133 mmol/L 133-145 [facility] Total proteinOrdered By: ED PROVIDER on 02-02-2025 Protein [Mass/Vol] 7.4 g/dL 5.9-8.4 [facility] White blood cell (WBC) count Ordered By: ED PROVIDER on 02-02-2025 WBC (Bld) [#/Vol] 12.8 10*3/uL High 4.4-11.0 [facility] XR CHEST 2V FRONTAL/LATon XR CHEST 2V FRONTAL/LAT * * *Final Repor t* * * DATE OF EXAM: Feb 02 2025 8:52AM WOX [id number] - XR CHEST 2V FRONTAL/LAT / PROCEDURE REASON: Acute cough * * * * Physician Interpretation * * * * EXAMINATION: CHEST RADIOGRAPH (2 VIEW FRONTAL and LATERAL) CLINICAL HISTORY: Acute cough MQ: XC2_6 EXAM DATE/TIME: 02/02/2025 8:52 AM COMPARISON: No relevant prior studies available. RESULT: Lines, tubes, and devices: None. Lungs and pleura: No consolidation. No lung mass. No pleural effusion. No pneumothorax. Cardiomediastinal silhouette: Normal cardiomediastinal silhouette. Bones and soft tissues: Unremarkable. IMPRESSION: No acute radiographic abnormality. Signal Tester: [facility] Transcribe Date/Time: Feb 02 2025 8:55A Dictated by : CAYLA QUIJANO MD This examination was interpreted and the report reviewed and electronically signed by: CAYLA QUIJANO MD on Feb 02 2025 8:56AM EST [id number] Normal [facility] XR Chest PA and Lateralon IMPRESSION: No acute radiographic abnormality. Signal Tester: VALERIE Transcribe Date/Time: Feb 02 2025 8:55A Dictated by : CAYLA QUIJANO MD This examination was interpreted and the report reviewed and electronically signed by: CAYLA QUIJANO MD on Feb 02 2025 8:56AM [facility] DIVISION OF RADIOLOGY * * *Final Report* * * DATE OF EXAM: Feb 02 2025 8:52AM WOX 5291 - XR CHEST 2V FRONTAL/LAT / PROCEDURE REASON: Acute cough * * * * Physician Interpretation * * * * EXAMINATION: CHEST RADIOGRAPH (2 VIEW FRONTAL & LATERAL) CLINICAL HISTORY: Acute cough MQ: XC2_6 EXAM DATE/TIME: 02/02/2025 8:52 AM COMPARISON: No relevant prior studies available. RESULT: Lines, tubes, and devices: None. Lungs and pleura: No consolidation. No lung mass. No pleural effusion. No pneumothorax. Cardiomediastinal silhouette: Normal cardiomediastinal silhouette. Bones and soft tissues: Unremarkable. DIVISION OF RADIOLOGY Provider, Nupur [facility] - 02/02/2025 * * *Final Report* * * DATE OF EXAM: Feb 02 2025 8:52AM WOX 5291 - XR CHEST 2V FRONTAL/LAT / PROCEDURE REASON: Acute cough * * * * Physician Interpretation * * * * EXAMINATION: CHEST RADIOGRAPH (2 VIEW FRONTAL & LATERAL) CLINICAL HISTORY: Acute cough MQ: XC2_6 EXAM DATE/TIME: 02/02/2025 8:52 AM COMPARISON: No relevant prior studies available. RESULT: Lines, tubes, and devices: None. Lungs and pleura: No consolidation. No lung mass. No pleural effusion. No pneumothorax. Cardiomediastinal silhouette: Normal cardiomediastinal silhouette. Bones and soft tissues: Unremarkable. IMPRESSION IMPRESSION: No acute radiographic abnormality. Signal Tester: [facility] Transcribe Date/Time: Feb 02 2025 8:55A Dictated by : CAYLA QUIJANO MD This examination was interpreted and the report reviewed and electronically signed by: CAYLA QUIJANO MD on Feb 02 2025 8:56AM [facility] Radiology Study observation (narrative) Ila Medina XR Chest PA and LateralOrder ed By: [facility] Provider on 02-02-2025 [facility] Abdomen/Pelvis W IV Cont ONL Yon 01-26-2025 Abdomen/Pelvis W IV Cont ONLY [facility] Imaging Services [address] [place] [address] Abdomen/Pelvis W IV Cont ONLY MR#: [id number] Acct: [id number] Name: ARTIE CABRERA Rep #: [id number] : 1980 M 44 From: Roland Walsh i, MD PCP: Vivien Gustafson, [employer]STEWARDESS-C Status: REG ER Study: Abdomen/Pelvis W IV Cont ONLY Date of Exam: Exam# [id number] Ordering Dr: Guilherme Callahan DO PROCEDURE: ABDOMEN/PELVIS W IV CONT ONLY REASON FOR EXAM: Right-sided abdominal pain. TECHNIQUE: Abdomen and pelvis CT with intravenous contrast. IV CONTRAST: COMPARISON: CT abdomen and pelvis with IV contrast dated October 10, 2024. FINDINGS: The lung bases are clear. There is no free air within the abdomen and pelvis. The liver, spleen, adrenals, pancreas are within normal limits. There is evidence of left renal cortical scarring near the upper pole. There is stable asymmetric prominence of the right proximal ureter. There is no evidence of renal stones or obstructive uropathy seen bilaterally. The urinary bladder is within normal limits. The prostate is nonenlarged. There are scattered colonic diverticulosis without CT evidence for acute diverticulitis. There is no bowel obstruction. The appendix is normal. No abnormal free fluid is seen within the abdomen or pelvis. There is stable haziness around the central mesenteric fat (image 40/126). There also some lymph nodes within this area. Etiologies be determined. Panniculitis is a possibility. CT/Abdomen/Pelvis W IV Cont ONLY IMPRESSION: Stable haziness seen within the central abdominal mesentery surrounding prominent lymph nodes. These may suggest panniculitis. These findings were seen on prior examination dating back to 2022. No acute findings are noted. One or more dose reduction techniques were used (e.g., Automated exposure control, adjustment of the mA and/or kV according to patient size, use of iterative reconstruction technique). Reading Location: [id number] CC: [employer]/STEWARDESS-C Vivien Gustafson; Dr. Guilherme Callahan DO Signal Tester: Signed Normal [facility] Absolute neutrophil countOrd ered By: Guilherme Callahan on 01-26-2025 Neutrophils (Bld) [#/Vol] 7.4 10*3/uL 2.0-7.7 [facility] Anion gap in Serum or Plasma Ordered By: Guilherme Callahan on 01-26-2025 Anion gap [Moles/Vol] 14 mmol/L - [facility] BUN/creatinine ratioOrdered By: Guilherme Callahan on 01-26-2025 Urea nitrogen/Creatinine [Mass ratio] 14.1 mg/mg 09-13 [facility] Bacteria LM.HPF (Urine sed) [#/Area]Ordered By: Guilherme Callahan on 01-26-2025 Urine Bacteria RARE /hpf None Seen [facility] Basic Metabolic Profile (BMP )on 01-26-2025 BUN/CRE 14.1 RATIO Normal - [facility] Comment on above: Performed By: #### L 501.2450, L500.2500, L100.0100, L500.3400 ####[facility] [address] [place], [address] ECRCL 93.74 ml/min Normal 50-250 [facility] Comment on above: Performed By: #### L 501.2450, L500.2500, L100.0100, L500.3400 ####[facility] [address] [place], [address] GAP 14 Normal - [facility] Comment on above: Performed By: #### L 501.2450, L500.2500, L100.0100, L500.3400 ####[facility] [address] [place], [address] GFR/1.73 sq M.predicted among non-blacks MDRD (S/P/Bld) [Vol rate/Area] 96 mL/min/{1.73_m2} Normal >60 [facility] Comment on above: Result Comment: mL/m in/1.73m2 CKD-EPI Creatinine Equation (2020) Performed By: #### L 501.2450, L500.2500, L100.0100, L500.3400 ####[facility] [address] [place], [address] Basic Metabolic Profile (BMP )Ordered By: Guilherme Callahan on 01-26-2025 Calcium [Mass/Vol] 9.7 mg/dL Normal 7.6-11.0 [facility] Comment on above: Performed By: #### L 501.2450, L500.2500, L100.0100, L500.3400 ####[facility] [address] [place], [address] Chloride [Moles/Vol] 97 mmol/L Low 98-108 [facility] Comment on above: Performed By: #### L 501.2450, L500.2500, L100.0100, L500.3400 ####[facility] [address] [place], [address] CO2 [Moles/Vol] 23.0 mmol/L Normal 21.0-32.0 [facility] Comment on above: Performed By: #### L 501.2450, L500.2500, L100.0100, L500.3400 ####[facility] [address] [place], [address] Creatinine [Mass/Vol] 0.99 mg/dL Normal 0.70-1.20 [facility] Comment on above: Performed By: #### L 501.2450, L500.2500, L100.0100, L500.3400 ####[facility] [address] [place], [address] Glucose [Mass/Vol] 135 mg/dL High 70-99 [facility] Comment on above: Performed By: #### L 501.2450, L500.2500, L100.0100, L500.3400 ####[facility] [address] [place], [address] Potassium [Moles/Vol] 3.8 mmol/L Normal 3.3-5.1 [facility] Comment on above: Performed By: #### L 501.2450, L500.2500, L100.0100, L500.3400 ####[facility] [address] [place], [address] Sodium [Moles/Vol] 133 mmol/L Normal 133-145 [facility] Comment on above: Performed By: #### L 501.2450, L500.2500, L100.0100, L500.3400 ####[facility] [address] [place], [address] Urea nitrogen [Mass/Vol] 14 mg/dL Normal 4-19 [facility] Comment on above: Performed By: #### L 501.2450, L500.2500, L100.0100, L500.3400 ####[facility] [address] [place], [address] Bilirubin Test strip Ql (U)O rdered By: Guilherme Callahan on 01-26-2025 Bilirubin Ql (U) Negative Negative [facility] CBC W/Diff, Automatedon Absolute Lymph 2.70 X10 3/uL Normal 0.83-4.51 [facility] Comment on above: Performed By: #### L 501.2450, L500.2500, L100.0100, L500.3400 ####[facility] [address] [place], [address] Absolute Neut 7.4 X10 3/uL Normal 2.0-7.7 [facility] Comment on above: Performed By: #### L 501.2450, L500.2500, L100.0100, L500.3400 ####[facility] [address] [place], [address] IG% 0.700 Normal 0.0-0.9 [facility] Comment on above: Result Comment: IG% - Immature Granulocytes (promyelocytes, myelocytes and metamyelocytes) > 1% indicates that a LEFT SHIFT is Present. Performed By: #### L 501.2450, L500.2500, L100.0100, L500.3400 ####[facility] [address] [place], [address] Nucleated RBC (Bld) [#/Vol] 0 10*3/uL Normal 0-5 [facility] Comment on above: Performed By: #### L 501.2450, L500.2500, L100.0100, L500.3400 ####[facility] [address] [place], [address] RDW SD 39.3 fl Normal 35.1-43.9 [facility] Comment on above: Performed By: #### L 501.2450, L500.2500, L100.0100, L500.3400 ####[facility] [address] [place], [address] CBC W/Diff, AutomatedOrdered By: Guilherme Callahan on 01-26-2025 Basophils/100 WBC (Bld) 0.8 % Normal 0-1 [facility] Comment on above: Performed By: #### L 501.2450, L500.2500, L100.0100, L500.3400 ####[facility] [address] [place], [address] Eosinophils/100 WBC (Bld) 2.8 % Normal 0-5 [facility] Comment on above: Performed By: #### L 501.2450, L500.2500, L100.0100, L500.3400 ####[facility] [address] [place], [address] Erythrocyte distribution width (RBC) [Ratio] 11.9 % Normal 11.6-14.6 [facility] Comment on above: Performed By: #### L 501.2450, L500.2500, L100.0100, L500.3400 ####[facility] [address] [place], [address] Hematocrit (Bld) [Volume fraction] 42.0 % Normal 40-54 [facility] Comment on above: Performed By: #### L 501.2450, L500.2500, L100.0100, L500.3400 ####[facility] [address] [place], [address] Hemoglobin (Bld) [Mass/Vol] 14.5 g/dL Normal 13.0-16.5 [facility] Comment on above: Performed By: #### L 501.2450, L500.2500, L100.0100, L500.3400 ####[facility] [address] [place], [address] Lymphocytes/100 WBC (Bld) 22.7 % Normal 19-41 [facility] Comment on above: Performed By: #### L 501.2450, L500.2500, L100.0100, L500.3400 ####[facility] [address] [place], [address] MCH (RBC) [Entitic mass] 31.3 pg Normal 27.0-32.0 [facility] Comment on above: Performed By: #### L 501.2450, L500.2500, L100.0100, L500.3400 ####[facility] [address] [place], [address] MCHC (RBC) [Mass/Vol] 34.5 g/dL Normal 32-36 [facility] Comment on above: Performed By: #### L 501.2450, L500.2500, L100.0100, L500.3400 ####[facility] [address] [place], [address] MCV (RBC) [Entitic vol] 90.7 fL Normal 80-94 [facility] Comment on above: Performed By: #### L 501.2450, L500.2500, L100.0100, L500.3400 ####[facility] [address] [place], [address] Monocytes/100 WBC (Bld) 11.2 % High 0-10 [facility] Comment on above: Performed By: #### L 501.2450, L500.2500, L100.0100, L500.3400 ####[facility] [address] [place], [address] Neutrophils/100 WBC (Bld) 61.8 % Normal 47-70 [facility] Comment on above: Performed By: #### L 501.2450, L500.2500, L100.0100, L500.3400 ####[facility] [address] [place], [address] Platelet mean volume (Bld) [Entitic vol] 8.6 fL Normal 6.2-12.0 [facility] Comment on above: Performed By: #### L 501.2450, L500.2500, L100.0100, L500.3400 ####[facility] [address] [place], [address] Platelets (Bld) [#/Vol] 419 10*3/uL Normal 150-450 [facility] Comment on above: Performed By: #### L 501.2450, L500.2500, L100.0100, L500.3400 ####[facility] [address] [place], [address] RBC (Bld) [#/Vol] 4.63 10*6/uL Normal 4.6-6.2 [facility] Comment on above: Performed By: #### L 501.2450, L500.2500, L100.0100, L500.3400 ####[facility] [address] [place], [address] WBC (Bld) [#/Vol] 11.9 10*3/uL High 4.4-11.0 [facility] Comment on above: Performed By: #### L 501.2450, L500.2500, L100.0100, L500.3400 ####[facility] [address] [place], [address] Emergency Department Summary on 01-26-2025 Emergency Department Summary [facility] Medical Records Department [address] [place] [address] Emergency Department Summary 01/26/25 MR#: [id number] Acct: [id number] Name: ARTIE CABRERA Rep #: [id number] : 1980 44 From: Guilherme Callahan DO PCP: AMY Schneider Status:DEP ER Location: ED HPI History of Present Illness Chief Complaint: Abd Pain Informant: patient Narrative Narrative: 44-year-old male presenting to the emergency room with right-sided abdominal pain. Patient states that yesterday morning around 0500 he developed pain right side of his abdomen that radiated to the back. He states that it is coming gone. He associates worsening symptoms of pain with eating. No fevers. No vomiting. He notes he is moving his bowels but feels constipated at times. He denies any urinary symptoms. He states that in the past he had underwent a HIDA scan was told that he had gallbladder sludge. He states he is worried about his appendix. There is no personal history of kidney stones. No prior abdominal surgeries. He states that it is a squeezing-like sensation. He points to the right upper quadrant is the area that hurts and radiates posteriorly. [facility] Medical History Irregular heart beat HTN (hypertension) Home Medications ???Medication ???Instructions ???Recorded ???Last Taken ???Type lisinopril 10 mg tablet 10 mg PO DAILY blood pressure #30 11/14/22 Unknown Rx tabs Allergy/AdvReac Type Severity Reaction Status Date / Time morphine AdvReac Upset Verified 01/26/25 07:00 Stomach naproxen AdvReac Upset Verified 01/26/25 07:00 Stomach Surgical History History of dental surgery Social History Smoking Status: Former smoker substance use type: does not use ROS ROS ED Constitutional Constitutional ED: Denies chills, fever(s) or weight loss Eyes Eyes: Denies change in vision or diplopia ENT ENT ED: Denies ear pain, rhinorrhea or sore throat Cardiovascular Cardiovascular: Denies chest pain, orthopnea, palpitations or racing heartbeat Respiratory/Chest Respiratory/Chest: Denies cough, dyspnea or orthopnea Gastrointestinal Gastrointestinal: Reports abdominal pain and constipation; Denies diarrhea, nausea or vomiting Genitourinary Genitourinary ED: Denies dysuria, hematuria or urinary frequency Musculoskeletal Musculoskeletal: Denies arthralgias or myalgias Integumentary Denies abscess or rash Neurologic Neurologic: Denies headache(s) or weakness Psychiatric Psychiatric: Denies anxiety, depression, suicidal ideation or suicidal thoughts Endocrine Endocrinology: Denies polydipsia, polyphagia or polyuria Allergic/Immunologic Allergic/Immunologic ED: Denies mouth swelling, tongue swelling or urticaria EXAM Physical Exam Const Vital Signs: 01/26/25 07:00 01/26/25 09:00 Temperature 98.3 F Temperature Source Oral Pulse Rate 108 H 75 Respiratory Rate 18 16 Blood Pressure 170/72 H 126/67 H Blood Pressure Mean 104 86 Pulse Ox 100 96 Oxygen Delivery Method Room Air Room Air Positive well nourished and well developed General Appearance ED: well developed HEENT Reports normocephalic, head/scalp atraumatic and moist mucous membranes Eyes PERRL and EOMs intact bilaterally Neck no lymphadenopathy, supple and no JVD Resp normal respiratory effort and clear to auscultation bilaterally Cardio regular rate, regular rhythm and no murmurs GI GI Narrative: Patient reports tenderness to palpation in both the right lower quadrant and the right upper quadrants of the abdomen. He winces when I press on it. Auscultation: normoactive bowel sounds Palpation: soft, tender and guarding; Negative for rebound tenderness present Back/Spine no CVA tenderness and normal ROM Extremity normal to inspection General Extremety ED: Negative for edema General Extremity: Negative for edema Neuro oriented x3 and CN's II-XII intact bilaterally Sensorium / Orientation: alert Motor Exam: strength 5/5 throughout Psych mental status grossly normal Mood Affect: Negative for depressed or tearful Skin no rashes or lesions noted and no wounds MDM MDM MDM Narrative Medical decision making narrative: Differential diagnosis includes but not limited to appendicitis colitis cholecystitis kidney stone pyelonephritis UTI mesenteric adenitis epiploic appendagitis pancreatitis Patient's white count nonspecifically elevated 11.9 otherwise labs only show a glucose of 135. Urinalysis is negative. CT of the abdomen pelvis was obtained read by radiology reviewed by myself. I do not see anything on the CT to fully explain the patient's symptomology. (more content not included)... Normal [facility] Epithelial cells.squamous LM Ql (Urine sed)Ordered By: Guilherme Callahan on 01-26-2025 Epithelial cells.squamous LM.HPF (Urine sed) [#/Area] 0 /[HPF] 0-5 [facility] Erythrocyte distribution wid th standard deviationOrdered By: Guilherme Callahan on 01-26-2025 Erythrocyte distribution width (RBC) [Entitic vol] 39.3 fL 35.1-43.9 [facility] Estimation of creatinine adriel aranceOrdered By: Guilherme Callahan on 01-26-2025 Estimated Creatinine Clearance Calc 93.74 ml/min 50-250 [facility] GFR/1.73 sq M.predicted liest g non-blacks MDRD (S/P/Bld) [Vol rate/Area]Ordered By: Guilherme Callahan on 01-26-2025 Estimated GFR (MDRD) Non-Af Amer 96 >60 [facility] Comment on above: mL/min/1.73m2 CKD-EP I Creatinine Equation (2020) Glucose Ql (U)Ordered By: Aidan Callahan on 01-26-2025 Urine Glucose (UA) Normal mg/dl Normal [facility] Immature granulocytes/100 WB C Auto (Bld)Ordered By: Guilherme Callahan on 01-26-2025 Immature granulocytes/100 WBC (Bld) 0.700 % 0.0-0.9 [facility] Comment on above: IG% - Immature Granu locytes (promyelocytes, myelocytes and metamyelocytes) > 1% indicates that a LEFT SHIFT is Present. Ketones Test strip Ql (U)Ord ered By: Guilherme Callahan on 01-26-2025 Ketones Ql (U) Negative Negative [facility] LipaseOrdered By: Guilherme dubois on 01-26-2025 Lipase [Catalytic activity/Vol] 40 U/L Normal 13-75 [facility] Comment on above: Result Comment: Traci garcia note: LIPASE revised reference range effective 23. New Lipase methodology. Expected to produce lower values than the previous assay method. NEW Reference Range: 13 - 75 U/L Performed By: #### L 501.2450, L500.2500, L100.0100, L500.3400 ####[facility] [address] [place], [address] Please note:LIPASE r evised reference range effective 23. New Lipase methodology. Expected to produce lower values than the previous assay method. NEW Reference Range: 13 - 75 U/L Liver ProfileOrdered By: Johnnie Callahan on 01-26-2025 Albumin [Mass/Vol] 4.1 g/dL Normal 3.5-5.0 [facility] Comment on above: Performed By: #### L 501.2450, L500.2500, L100.0100, L500.3400 ####[facility] [address] [place], [address] ALT [Catalytic activity/Vol] 27 U/L Normal <=46 [facility] Comment on above: Performed By: #### L 501.2450, L500.2500, L100.0100, L500.3400 ####[facility] [address] [place], [address] AST [Catalytic activity/Vol] 24 U/L Normal <=37 [facility] Comment on above: Performed By: #### L 501.2450, L500.2500, L100.0100, L500.3400 ####[facility] [address] [place], [address] Bilirubin [Mass/Vol] 0.50 mg/dL Normal 0.00-1.30 [facility] Comment on above: Performed By: #### L 501.2450, L500.2500, L100.0100, L500.3400 ####[facility] [address] [place], [address] Bilirubin.direct [Mass/Vol] 0.18 mg/dL Normal 0.00-0.30 [facility] Comment on above: Performed By: #### L 501.2450, L500.2500, L100.0100, L500.3400 ####[facility] [address] [place], [address] Globulin (S) [Mass/Vol] 3.7 g/dL Normal 2.2-4.2 [facility] Comment on above: Performed By: #### L 501.2450, L500.2500, L100.0100, L500.3400 ####[facility] [address] [place], [address] Liver Profileon 01-26-2025 ALK PHOS 101 U/L Normal 40-129 [facility] Comment on above: Performed By: #### L 501.2450, L500.2500, L100.0100, L500.3400 ####[facility] [address] [place], [address] T PROT 7.8 g/dL Normal 5.9-8.4 [facility] Comment on above: Performed By: #### L 501.2450, L500.2500, L100.0100, L500.3400 ####[facility] [address] [place], [address] Lymphocytes Auto (Unsp spec) [#/Vol]Ordered By: Guilherme Callahan on 01-26-2025 Lymphocytes (Bld) [#/Vol] 2.70 10*3/uL 0.83-4.51 [facility] Microscopic analysis of urin e for red blood cells (RBC)Ordered By: Guilherme Callahan on 01-26-2025 Urine RBC 0 SEEN /hpf 0-5 [facility] Mucus LM Ql (Urine sed)Order ed By: Guilherme Callahan on 01-26-2025 Mucus Ql (Urine sed) 0 SEEN /hpf [facility] Nitrite Test strip Ql (U)Ord ered By: Guilherme Callahan on 01-26-2025 Nitrite Ql (U) Negative Negative [facility] Nucleated red blood cell per centageOrdered By: Guilherme Callahan on 01-26-2025 Nucleated RBC/100 WBC (Bld) [Ratio] 0 % 0-5 [facility] Protein Test strip Ql (U)Ord ered By: Guilherme Callahan on 01-26-2025 Protein Ql (U) Negative Negative [facility] Serum or plasma alkaline ritika sphatase measurementOrdered By: Guilherme Callahan on 01-26-2025 ALP [Catalytic activity/Vol] 101 U/L 40-129 [facility] Total proteinOrdered By: Johnnie Callahan on 01-26-2025 Protein [Mass/Vol] 7.8 g/dL 5.9-8.4 [facility] Urinalysis, Completeon 01-26 RBC 0 SEEN Normal 0-5 [facility] Comment on above: Order Comment: CLEAN CATCH Performed By: #### L 400.0001 #### [facility] [address] [place] [address], [address] Urine blood detectionOrdered By: Guilherme Callahan on 01-26-2025 Urine Occult Blood Negative Negative [facility] Urine clarityOrdered By: Johnnie Callahan on 01-26-2025 Clarity (U) Clear Clear [facility] Urine color determinationOrd ered By: Guilherme Callahan on 01-26-2025 Color (U) Straw Yellow [facility] Urine leukocyte esterase det ection by dipstickOrdered By: Guilherme Callahan on 01-26-2025 Leukocyte esterase Test strip Ql (U) Negative Negative [facility] Urine pHOrdered By: Guilherme gallo on 01-26-2025 pH (U) 6.0 [pH] 5.0 - 8.0 [facility] Urine specific gravity measu rementOrdered By: Guilherme Callahan on 01-26-2025 Specific gravity (U) [Rel density] 1.010 1.002-1.030 [facility] Urobilinogen Ql (U)Ordered B y: Guilherme Callahan on 01-26-2025 Urine Urobilinogen Normal mg/dl Normal [facility] White blood cell countOrdere d By: Guilherme Callahan on 01-26-2025 Urine WBC 0 SEEN /hpf 0-5 [facility] Abdomen/Pelvis W IV Cont ONL Yon 10-10-2024 Abdomen/Pelvis W IV Cont ONLY [facility] Imaging Services [address] [place] [address] Abdomen/Pelvis W IV Cont ONLY MR#: [id number] Acct: [id number] Name: ARTIE CABRERA Rep #: [id number] : 1980 M 44 From: Teto Leal MD PCP: Vivien Gustafson [employer]ARD/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 CTDIvol = ( 16.08 ) mGy, DLP = ( 1149.23 ) mGycm This CT exam was performed using one or more of the following dose reduction techniques: automated exposure control, adjustment of the mA and/or kV according to patient size, and/or use of iterative reconstruction technique. CONTRAST: IV 100mL Isovue-370 COMPARISON: No relevant prior studies available. FINDINGS: LOWER THORAX: Pleural parenchymal scarring at the anterior lung bases is relatively mild. No cardiomegaly. No significant pericardial effusion. ABDOMEN: LIVER: Unremarkable. Homogeneous. No focal mass. GALLBLADDER AND BILE DUCTS: Unremarkable. No calcified gallstones. No gallbladder distention or wall edema. No intra- or extrahepatic biliary ductal dilation. PANCREAS: Unremarkable. No focal cystic or solid mass. SPLEEN: Unremarkable. Normal size without focal cystic or solid mass. ADRENALS: Unremarkable. No nodules. KIDNEYS AND URETERS: Left upper renal pole scarring posteriorly. No other renal abnormalities. P. No hydronephrosis. STOMACH AND BOWEL: See below. PELVIS: APPENDIX: No evidence of acute appendicitis. BLADDER: Unremarkable. REPRODUCTIVE: Unremarkable as visualized. No mass. ABDOMEN and PELVIS: INTRAPERITONEAL SPACE: See below. BONES/JOINTS: Unremarkable. No suspicious lytic or blastic abnormality. SOFT TISSUES: Unremarkable. No discrete abdominal or pelvic wall hernia. VASCULATURE: Unremarkable. Abdominal aorta is non-dilated. LYMPH NODES: Central mesenteric edema with some prominent lymph nodes can be seen with mesenteritis or panniculitis. CT/Abdomen/Pelvis W IV Cont ONLY IMPRESSION: 1. Central mesenteric edema with some prominent lymph nodes can be seen with mesenteritis or panniculitis. 2. No other acute or inflammatory disease or bowel obstruction. Electronically Signed: Teto Leal MD at 22:21 EST , CC: AMY Puga Podlogar; Dr. Magen Chávez DO Signal Tester: Signed Normal [facility] Absolute neutrophil countOrd ered By: aMgen Chávez on 10-10-2024 Neutrophils (Bld) [#/Vol] 4.8 10*3/uL 2.0-7.7 [facility] Bilirubin Test strip Ql (U)O rdered By: Magen Chávez on 10-10-2024 Bilirubin Ql (U) Negative Negative [facility] Blood urea nitrogen (BUN)/cr eatinine ratioOrdered By: Magen Chávez on 10-10-2024 Urea nitrogen/Creatinine [Mass ratio] 9.5 mg/mg Low 10-20 [facility] CBC W/Diff, Automatedon 09-25 Absolute Lymph 2.54 X10 3/uL Normal 0.83-4.51 [facility] Comment on above: Performed By: #### L 501.2450, L100.0100, L500.4050 #### [facility] [address] [place], [address] Absolute Neut 4.8 X10 3/uL Normal 2.0-7.7 [facility] Comment on above: Performed By: #### L 501.2450, L100.0100, L500.4050 #### [facility] [address] [place], [address] IG% 0.200 Normal 0.0-0.9 [facility] Comment on above: Result Comment: IG% - Immature Granulocytes (promyelocytes, myelocytes and metamyelocytes) > 1% indicates that a LEFT SHIFT is Present. Performed By: #### L 501.2450, L100.0100, L500.4050 #### [facility] [address] [place], [address] Nucleated RBC (Bld) [#/Vol] 0 10*3/uL Normal 0-5 [facility] Comment on above: Performed By: #### L 501.2450, L100.0100, L500.4050 #### [facility] [address] [place], [address] RDW SD 42.2 fl Normal 35.1-43.9 [facility] [facility] Comment on above: Performed By: #### L 501.2450, L100.0100, L500.4050 #### [facility] [address] [place], [address] CBC W/Diff, AutomatedOrdered By: Magen Chávez on 10-10-2024 Basophils/100 WBC (Bld) 0.7 % Normal 0-1 [facility] Comment on above: Performed By: #### L 501.2450, L100.0100, L500.4050 #### [facility] [address] [place], [address] Eosinophils/100 WBC (Bld) 1.7 % Normal 0-5 [facility] Comment on above: Performed By: #### L 501.2450, L100.0100, L500.4050 #### [facility] [address] [place], [address] Erythrocyte distribution width (RBC) [Ratio] 12.5 % Normal 11.6-14.6 [facility] Comment on above: Performed By: #### L 501.2450, L100.0100, L500.4050 #### [facility] [address] [place], [address] Hematocrit (Bld) [Volume fraction] 43.4 % Normal 40-54 [facility] Comment on above: Performed By: #### L 501.2450, L100.0100, L500.4050 #### [facility] [address] [place], [address] Hemoglobin (Bld) [Mass/Vol] 14.8 g/dL Normal 13.0-16.5 [facility] Comment on above: Performed By: #### L 501.2450, L100.0100, L500.4050 #### [facility] [address] [place], [address] Lymphocytes/100 WBC (Bld) 30.0 % Normal 19-41 [facility] Comment on above: Performed By: #### L 501.2450, L100.0100, L500.4050 #### [facility] [address] [place], [address] MCH (RBC) [Entitic mass] 31.2 pg Normal 27.0-32.0 [facility] Comment on above: Performed By: #### L 501.2450, L100.0100, L500.4050 #### [facility] [address] [place], [address] MCHC (RBC) [Mass/Vol] 34.1 g/dL Normal 32-36 [facility] Comment on above: Performed By: #### L 501.2450, L100.0100, L500.4050 #### [facility] [address] [place], [address] MCV (RBC) [Entitic vol] 91.6 fL Normal 80-94 [facility] Comment on above: Performed By: #### L 501.2450, L100.0100, L500.4050 #### [facility] [address] [place], [address] Monocytes/100 WBC (Bld) 10.5 % High 0-10 [facility] Comment on above: Performed By: #### L 501.2450, L100.0100, L500.4050 #### [facility] [address] [place], [address] Neutrophils/100 WBC (Bld) 56.9 % Normal 47-70 [facility] Comment on above: Performed By: #### L 501.2450, L100.0100, L500.4050 #### [facility] [address] [place], [address] Platelet mean volume (Bld) [Entitic vol] 8.4 fL Normal 6.2-12.0 [facility] Comment on above: Performed By: #### L 501.2450, L100.0100, L500.4050 #### [facility] [address] [place], [address] Platelets (Bld) [#/Vol] 327 10*3/uL Normal 150-450 [facility] Comment on above: Performed By: #### L 501.2450, L100.0100, L500.4050 #### [facility] [address] [place], [address] RBC (Bld) [#/Vol] 4.74 10*6/uL Normal 4.6-6.2 [facility] Comment on above: Performed By: #### L 501.2450, L100.0100, L500.4050 #### [facility] [address] [place], [address] WBC (Bld) [#/Vol] 8.5 10*3/uL Normal 4.4-11.0 [facility] Comment on above: Performed By: #### L 501.2450, L100.0100, L500.4050 #### [facility] [address] [place], [address] Comprehensive Metabolic Prof ilOrdered By: Magen Chávez on 10-10-2024 Albumin [Mass/Vol] 3.8 g/dL Normal 3.2-5.0 [facility] Comment on above: Performed By: #### L 501.2450, L100.0100, L500.4050 #### [facility] [address] [place], [address] Albumin/Globulin [Mass ratio] 1.1 {ratio} Normal 0.9-2.4 [facility] Comment on above: Performed By: #### L 501.2450, L100.0100, L500.4050 #### [facility] [address] [place], [address] ALT [Catalytic activity/Vol] 41 U/L Normal 16-61 [facility] Comment on above: Performed By: #### L 501.2450, L100.0100, L500.4050 #### [facility] [address] [place], [address] AST [Catalytic activity/Vol] 18 U/L Normal 15-37 [facility] Comment on above: Performed By: #### L 501.2450, L100.0100, L500.4050 #### [facility] [address] [place], [address] Bilirubin [Mass/Vol] 0.80 mg/dL Normal 0.20-1.00 [facility] Comment on above: Result Comment: For patients on eltrombopag therapy, use of Dimension [place] TBIL is not recommended. Performed By: #### L 501.2450, L100.0100, L500.4050 #### [facility] [address] [place], [address] For patients on eltr ombopag therapy, use of Dimension [place] TBIL is not recommended. Chloride [Moles/Vol] 105 mmol/L Normal 98-107 [facility] Comment on above: Performed By: #### L 501.2450, L100.0100, L500.4050 #### [facility] [address] [place], [address] CO2 [Moles/Vol] 27.0 mmol/L Normal 21.0-32.0 [facility] Comment on above: Performed By: #### L 501.2450, L100.0100, L500.4050 #### [facility] [address] [place], [address] Creatinine [Mass/Vol] 1.05 mg/dL Normal 0.70-1.30 [facility] Comment on above: Result Comment: The validity of the calculated GFR GFRAA in patients over 70 years has not been determined. Clinical correlation is essential. Performed By: #### L 501.2450, L100.0100, L500.4050 #### [facility] [address] [place], [address] The validity of the calculated GFR & GFRAA in patients over 70 years has not been determined. Clinical correlation is essential. Globulin (S) [Mass/Vol] 3.5 g/dL Normal 2.2-4.2 [facility] Comment on above: Performed By: #### L 501.2450, L100.0100, L500.4050 #### [facility] [address] [place], [address] Glucose [Mass/Vol] 114 mg/dL High 74-106 [facility] Comment on above: Result Comment: Fast ing Glucose result from 100 to 125 mg/dL suggests IMPAIRED HOMEOSTASIS per A.D.A. criteria. Performed By: #### L 501.2450, L100.0100, L500.4050 #### [facility] [address] [place], [address] Fasting Glucose resu lt from 100 to 125 mg/dL suggests IMPAIRED HOMEOSTASIS per A.D.A. criteria. Potassium [Moles/Vol] 3.6 mmol/L Normal 3.5-5.1 [facility] Comment on above: Performed By: #### L 501.2450, L100.0100, L500.4050 #### [facility] [address] [place], [address] Sodium [Moles/Vol] 137 mmol/L Normal 136-145 [facility] Comment on above: Performed By: #### L 501.2450, L100.0100, L500.4050 #### [facility] [address] [place], [address] Urea nitrogen [Mass/Vol] 10 mg/dL Normal 7-18 [facility] Comment on above: Performed By: #### L 501.2450, L100.0100, L500.4050 #### [facility] [address] [place], [address] Comprehensive Metabolic Prof hieu 10-10-2024 ALK P 84 U/L Normal 45-117 [facility] Comment on above: Performed By: #### L 501.2450, L100.0100, L500.4050 #### [facility] [address] [place], [address] BUN/CRE 9.5 RATIO Low 10-20 [facility] Comment on above: Performed By: #### L 501.2450, L100.0100, L500.4050 #### [facility] [address] [place], [address] CA,Total 8.8 mg/dL Normal 8.5-10.1 [facility] Comment on above: Performed By: #### L 501.2450, L100.0100, L500.4050 #### [facility] [address] [place], [address] ECRCL 89.11 ml/min Normal [facility] Comment on above: Performed By: #### L 501.2450, L100.0100, L500.4050 #### [facility] [address] [place], [address] EST GFR - AA 99 mL/min Normal >60 [facility] Comment on above: Result Comment: Afri can Marshallese GFR Calc Performed By: #### L 501.2450, L100.0100, L500.4050 #### [facility] [address] [place], [address] GAP 5 Normal 5-15 [facility] Comment on above: Performed By: #### L 501.2450, L100.0100, L500.4050 #### [facility] [address] [place], [address] GFR/1.73 sq M.predicted among non-blacks MDRD (S/P/Bld) [Vol rate/Area] 82 mL/min/{1.73_m2} Normal >60 [facility] Comment on above: Result Comment: Non- GFR Calc Performed By: #### L 501.2450, L100.0100, L500.4050 #### [facility] [address] [place], [address] T PROT 7.3 g/dL Normal 6.4-8.2 [facility] Comment on above: Performed By: #### L 501.2450, L100.0100, L500.4050 #### [facility] [address] [place], [address] Emergency Department Summary on 10-10-2024 Emergency Department Summary [facility] Medical Records Department [address] [place] [address] Emergency Department Summary 10/10/24 MR#: [id number] Acct: [id number] Name: ARTIE CABRERA Rep #: [id number] : 1980 44 From: Magen Chávez DO PCP: Vivien Gustafson [employer] Status:REG ER Location: ED HPI History of Present Illness Chief Complaint: Abd Pain Narrative Narrative: Patient is a 44-year-old male with past medical history of hypertension who presents to the emergency department with a chief complaint of abdominal pain for the past 3 days as well as nausea. Patient states that he was at work earlier today and noted that his pain worsened and felt like somebody was stabbing his intestines and cranking them. He states that has progressively worsened which ultimately prompted him here for further evaluation management. He states that he is having bowel movements and passing gas. Patient denies any other previous abdominal surgeries. Denies any recent sick contacts. [facility] Medical History Irregular heart beat HTN (hypertension) Home Medications ???Medication ???Instructions ???Recorded ???Last Taken ???Type lisinopril 10 mg tablet 10 mg PO DAILY blood pressure #30 11/14/22 Unknown Rx tabs lisinopril 10 mg tablet 10 mg PO DAILY #14 tabs 04/06/23 Unknown Rx ondansetron 4 mg disintegrating 4 mg PO Q8H PRN PRN Nausea #14 tabs 09/24/23 Unknown Rx tablet lisinopril 10 mg tablet 10 mg PO DAILY #30 tabs 12/26/23 Unknown Rx dicyclomine 10 mg capsule 10 mg PO TID PRN abdominal pain 4 10/10/24 Unknown Rx days #12 caps Allergy/AdvReac Type Severity Reaction Status Date / Time morphine AdvReac Upset Verified 10/10/24 19:21 Stomach naproxen AdvReac Upset Verified 10/10/24 19:21 Stomach Surgical History History of dental surgery Social History Smoking Status: Former smoker substance use type: does not use ROS ROS ED ROS Narrative Constitutional: Denies any fevers, chills, headaches, lightness, dizziness Cardiovascular: Denies chest pain or palpitations Respiratory: Denies coughing wheezing shortness of breath Abdomen: Complains of abdominal pain and nausea as noted above denies vomiting or diarrhea : Denies any urinary symptoms Neurological: Denies numbness, weakness, tingling Musculoskeletal: Denies back pain Skin: Denies rashes or lesions EXAM Physical Exam Narrative Exam Narrative: General: Patient lying in bed resting comfortably did not appear to be in acute distress Head: Atraumatic, normocephalic Eyes: PERRL bilaterally, EOMI bilateral, no conjunctival injection noted Neck: Soft, supple, trachea midline Cardiovascular: Regular rate and rhythm no murmurs gallops rubs are noted Respiratory: Clear to auscultation bilaterally no rales rhonchi or wheezes noted Abdomen: Soft, nondistended, tenderness palpation of the left lower quadrant no rebound or guarding on exam Extremities: +5/5 strength noted in the bilateral upper and lower extremities, no pedal edema on exam, radial pulses +2/4 in the bilateral upper extremities Neurological: Patient is following commands knew that he was at [facility] years 2023 Skin: Warm, dry, intact Const Vital Signs: 10/10/24 19:20 10/10/24 21:20 Temperature 98.1 F Temperature Source Temporal Pulse Rate 101 H 79 Respiratory Rate 17 16 Blood Pressure 143/76 H 138/74 H Blood Pressure Mean 98 95 Pulse Ox 97 100 Oxygen Delivery Method Room Air MDM MDM MDM Narrative Medical decision making narrative: Patient is a 44-year-old male who presents to the emergency department chief complaint of left lower quadrant abdominal pain for 3 days now. Patient will have a workup performed here on the differential diagnose includes Melamin to diverticulitis, bowel obstruction, viral gastroenteritis. Once workup is obtained reviewed he will be reevaluated. Patient CBC reviewed and showed no evidence of leukocytosis white blood count normal at 8.5, hemoglobin was 14.8, platelet count normal at 327. Patient sodium normal 137, potassium normal 3.6, creatinine normal at 1.05. Patient's total bilirubin normal at 0.80, AST and ALT were 18 and 41 respectively. Patient's lipase normal at 38. Patient's urinalysis did not reveal any evidence of infection. Patient's CT abdomen pelvis with IV contrast showed central mesenteric edema with some prominent lymph nodes can be seen with mesenteritis or panniculitis. On reevaluation the patient he is feeling better he would like to go home. Patient was advised to use Tylenol or ibuprofen for pain control. He was advised to follow-up with his primary care physician outpat (more content not included)... Normal [facility] Epithelial cells.squamous LM Ql (Urine sed)Ordered By: Magen Chávez on 10-10-2024 Epithelial cells.squamous LM.HPF (Urine sed) [#/Area] 0 /[HPF] 0-5 [facility] Erythrocyte distribution wid th standard deviationOrdered By: Magen Chávez on 10-10-2024 Erythrocyte distribution width (RBC) [Entitic vol] 42.2 fL 35.1-43.9 [facility] Estimated glomerular filtrat ion rate (GFR) AmericanOrdered By: Magen Chávez on 10-10-2024 Estimated GFR (MDRD) Amer 99 mL/min >60 [facility] Comment on above: GFR Calc Estimation of creatinine adriel aranceOrdered By: Magen Chávez on 10-10-2024 Estimated Creatinine Clearance Calc 89.11 ml/min [facility] Glomerular filtration rate ( GFR) estimationOrdered By: Magen Chávez on 10-10-2024 Estimated GFR (MDRD) Non-Af Amer 82 mL/min >60 [facility] Comment on above: Non- GFR Calc Glucose Ql (U)Ordered By: Hector Cáhvez on 10-10-2024 Urine Glucose (UA) Normal mg/dl Normal [facility] Immature granulocytes/100 WB C Auto (Bld)Ordered By: Magen Chávez on 10-10-2024 Immature granulocytes/100 WBC (Bld) 0.200 % 0.0-0.9 [facility] Comment on above: IG% - Immature Granu locytes (promyelocytes, myelocytes and metamyelocytes) > 1% indicates that a LEFT SHIFT is Present. Ketones Test strip Ql (U)Ord ered By: Magen Chávez on 10-10-2024 Ketones Ql (U) Negative Negative [facility] LipaseOrdered By: Magen felipe on 10-10-2024 Lipase [Catalytic activity/Vol] 38 U/L Normal 13-75 [facility] Comment on above: Result Comment: Plea se note: LIPASE revised reference range effective 23. New Lipase methodology. Expected to produce lower values than the previous assay method. NEW Reference Range: 13 - 75 U/L Performed By: #### L 501.2450, L100.0100, L500.4050 #### [facility] [address] [place], [place], [id number] Please note:LIPASE r evised reference range effective 23. New Lipase methodology. Expected to produce lower values than the previous assay method. NEW Reference Range: 13 - 75 U/L Lymphocytes Auto (Unsp spec) [#/Vol]Ordered By: Magen Chávez on 10-10-2024 Lymphocytes (Bld) [#/Vol] 2.54 10*3/uL 0.83-4.51 [facility] Microscopic analysis of urin e for red blood cells (RBC)Ordered By: Magen Chávez on 10-10-2024 Urine RBC 0 SEEN /hpf 0-5 [facility] Mucus LM Ql (Urine sed)Order ed By: Magen Chávez on 10-10-2024 Mucus Ql (Urine sed) 0 SEEN /hpf [facility] Nitrite Test strip Ql (U)Ord ered By: Magen Chávez on 10-10-2024 Nitrite Ql (U) Negative Negative [facility] Nucleated red blood cell per centageOrdered By: Magen Chávez on 10-10-2024 Nucleated RBC/100 WBC (Bld) [Ratio] 0 % 0-5 [facility] Protein Test strip Ql (U)Ord ered By: Magen Chávez on 10-10-2024 Protein Ql (U) Negative Negative [facility] Serum anion gap measurementO rdered By: Magen Chávez on 10-10-2024 Anion gap [Moles/Vol] 5 mmol/L 5-15 [facility] Serum or plasma alkaline ritika sphatase measurementOrdered By: Magen Chávez on 10-10-2024 ALP [Catalytic activity/Vol] 84 U/L 45-117 [facility] Serum or plasma calcium mayte urement (mass/volume)Ordered By: Magen Chávez on 10-10-2024 Calcium [Mass/Vol] 8.8 mg/dL 8.5-10.1 [facility] Total proteinOrdered By: Rusty Chávez on 10-10-2024 Protein [Mass/Vol] 7.3 g/dL 6.4-8.2 [facility] Urinalysis, Completeon 10-10 EPI,SQUAMOUS 0-5 SEEN Normal 0-5 [facility] Comment on above: Order Comment: CLEAN CATCH Performed By: #### L 400.0001 ####[facility] [address] [place], [address] BACTERIA 0 SEEN Normal None Seen [facility] Comment on above: Order Comment: CLEAN CATCH Performed By: #### L 400.0001 ####[facility] [address] [place], [address] Mucus Ql (Urine sed) 0 SEEN Normal [facility] Comment on above: Order Comment: CLEAN CATCH Performed By: #### L 400.0001 ####[facility] [address] [place], [address] RBC 0 SEEN Normal 0-5 [facility] Comment on above: Order Comment: CLEAN CATCH Performed By: #### L 400.0001 ####[facility] [address] [place], [address] WBC 0 SEEN Normal 0-5 [facility] Comment on above: Order Comment: CLEAN CATCH Performed By: #### L 400.0001 ####[facility] [address] [place], [address] Urine blood detectionOrdered By: Magen Chávez on 10-10-2024 Urine Occult Blood Negative Negative [facility] Urine clarityOrdered By: Rusty Chávez on 10-10-2024 Clarity (U) Sl. Cloudy Clear [facility] Urine color determinationOrd ered By: Magen Chávez on 10-10-2024 Color (U) Yellow Yellow [facility] Urine leukocyte esterase det ection by dipstickOrdered By: Magen Chávez on 10-10-2024 Leukocyte esterase Test strip Ql (U) Negative Negative [facility] Urine pHOrdered By: Magen Rush ndewendy on 10-10-2024 pH (U) 6.0 [pH] 5.0 - 8.0 [facility] Urine sediment bacteria coun t by microscopy (number/high power field)Ordered By: Magen Chávez on 10-10-2024 Bacteria LM.HPF (Urine sed) [#/Area] 0 /[HPF] None Seen [facility] Urine specific gravity measu rementOrdered By: Magen Chávez on 10-10-2024 Specific gravity (U) [Rel density] 1.015 1.002-1.030 [facility] Urobilinogen Ql (U)Ordered B y: Magen Chávez on 10-10-2024 Urine Urobilinogen Normal mg/dl Normal [facility] White blood cell countOrdere d By: Magen Chávez on 10-10-2024 Urine WBC 0 SEEN /hpf 0-5 [facility] ([id number]) 1980 M Date Time Provider Department 04/16/24 NEHEMIAH DANG [facility] During your visit today, we recorded the following information about you: Nehemiah Dang APRN.ADJUNCT LECTURER 04/16/2024 2:23 PM Signed Please let patient know their labs are normal. Kash Waterman MA 04/16/2024 2:32 PM Signed Pt active on [employer], message sent Kash Waterman MA Allergies As of Date: 04/16/2024 Noted Allergy Reaction NAPROXEN 01/25/2009 8 - GI Upset MORPHINE 09/01/2021 11 - Vomiting Comments: dizziness Date Reviewed: 04/15/2024 Reviewed by: Lucia Andrews LPN - Fully Assessed Reason for Visit: Results [95] Prescriptions as of 04/16/2024 - lisinopril (ZESTRIL) 10 mg tablet Take 1 tablet by mouth once daily. For blood pressure Problem List As Of Date 04/16/2024 Noted Resolved Atypical chest pain [R07.89] Chronic RUQ pain [R10.11, G89.29] 12/06/2020 Elevated blood pressure reading [R03.0] Obesity, Class I, BMI 30-34.9 [E66.9] 02/06/2022 Hypertension, essential [I10] 02/06/2022 Encounter Status:Closed by KASH WATERMAN CMA on 04/16/24 [facility] CNOVon 04-15-2024 CNOV Office Visit (NESSA ) ARTIE CABRERA ([id number]) 1980 M Date Time Provider Department 04/15/24 9:20 AM VIVIEN GUSTAFSON During your visit today, we recorded the following information about you: Pulse Respiration Blood pressure Weight 73/minute 18/minute 118/78 89.4 kg Vivien Gustafson APRN.CNP 04/15/2024 9:58 AM Signed 04/15/2024 Patient presents with: Blood Pressure Check SUBJECTIVE: This is a 43 year old that is here today for Above Complaints. Bp elevated at last office visit due to patient being out of his medication for 8 months. Lisinopril restarted. Taking and tolerating without side effects. Not checking BP at home Denies visual changes, headaches, lightheadedness, dizziness, slurred speech, facial drooping, SOB, dyspnea, chest pain, palpitations, extremity numbness, tingling or weakness Needs to get his bilirubin rechecked as it was elevated on labs a month ago. Admits to yellowish/green stools at times. Denies alcohol use, acetaminophen use, hx of liver disease, yellowing of skin, itching or abdominal pain PAST MEDICAL HISTORY Diagnosis Date Atypical chest pain Elevated blood pressure reading Hypertension, essential 02/06/2022 Obesity, Class I, BMI 30-34.9 02/06/2022 Painful respiration pleurisy ALLERGIES Naproxen and Morphine MEDICATIONS Current Outpatient Medications Medication Sig lisinopril (ZESTRIL) 10 mg tablet Take 1 tablet by mouth once daily. For blood pressure No current facility-administered medications for this visit. Medications and allergies reviewed by this provider. SOCIAL HISTORY Social History Tobacco Use Smoking status: Former Packs/day: 3.00 Years: 10.00 Additional pack years: 0.00 Total pack years: 30.00 Types: Cigarettes Quit date: 12/26/2019 Years since quittin.3 Smokeless tobacco: Never Tobacco comments: june 2005. Vaping Use Vaping Use: Never used Substance Use Topics Alcohol use: No Drug use: No Comment: none since 2004 marijuana REVIEW OF SYSTEMS All other reviewed and negative other than HPI. OBJECTIVE: BP 118/78 Pulse 73 Resp 18 Wt 89.4 kg (197 lb 3.2 oz) SpO2 97% BMI 34.94 kg/m? . Vital signs reviewed by this provider. APPEARANCE Well appearing, alert, in no acute distress, well-hydrated, well nourished. Abdomen: soft, nondistended, nontender, no hepatosplenomegaly or masses Latest Ref Rng 03/21/2024 WBC 3.70 - 11.00 k/uL 6.41 RBC 4.20 - 6.00 m/uL 4.91 Hemoglobin 13.0 - 17.0 g/dL 15.0 Hematocrit 39.0 - 51.0 % 45.3 MCV 80.0 - 100.0 fL 92.3 MCH 26.0 - 34.0 pg 30.5 MCHC 30.5 - 36.0 g/dL 33.1 RDW-CV 11.5 - 15.0 % 12.6 Platelet Count 150 - 400 k/uL 285 MPV 9.0 - 12.7 fL 9.1 Neut% % 40.9 Abs Neut (ANC) 1.45 - 7.50 k/uL 2.62 Lymph% % 40.2 Abs Lymph 1.00 - 4.00 k/uL 2.58 Sanborn% % 15.6 Abs Sanborn <0.87 k/uL 1.00 (H) Eosin% % 2.2 Abs Eosin <0.46 k/uL 0.14 Baso% % 0.8 Abs Baso <0.11 k/uL 0.05 Immature Gran % % 0.3 IMMATURE GRANS (ABS) <0.10 k/uL <0.03 NRBC /100 WBC 0.0 Absolute nRBC <0.01 k/uL <0.01 DTYPE Auto Protein, Total 6.3 - 8.0 g/dL 7.3 Albumin 3.9 - 4.9 g/dL 4.2 Calcium 8.5 - 10.2 mg/dL 9.6 Bilirubin, Total 0.2 - 1.3 mg/dL 1.7 (H) Alkaline Phosphatase 38 - 113 U/L 89 AST 14 - 40 U/L 26 ALT 10 - 54 U/L 26 Glucose 74 - 99 mg/dL 88 BUN 9 - 24 mg/dL 21 Creatinine 0.73 - 1.22 mg/dL 1.15 Sodium 136 - 144 mmol/L 137 Potassium 3.7 - 5.1 mmol/L 4.1 Chloride 97 - 105 mmol/L 100 CO2 22 - 30 mmol/L 26 Anion Gap 9 - 18 mmol/L 11 eGFR >=60 mL/min/1.73m? 81 Cholesterol, Total <200 mg/dL 168 Triglyceride <150 mg/dL 80 HDL Cholesterol >39 mg/dL 34 (L) Non HDL Cholesterol <130 mg/dL 134 (H) Fasting Time hrs 12 VLDL Cholesterol <30 mg/dL 16 TC:HDL Ratio <5.10 4.94 LDL Cholesterol <100 mg/dL 118 (H) LDL:HDL Ratio <2.54 3.47 (H) Hemoglobin A1C 4.3 - 5.6 % 4.9 Estimated Average Glucose mg/dL 94 TSH 0.270 - 4.200 mIU/L 3.800 Legend: (H) High (L) Low The 10-year ASCVD risk score (Juanita DK, et al., 2019) is: 2.9% Values used to calculate the score: Age: 43 years Sex: Male Is Non- : No Diabetic: No Tobacco smoker: No Systolic Blood Pressure: 146 mmHg Is BP treated: Yes HDL Cholesterol: 34 mg/dL Total Cholesterol: 168 mg/dL Hepatitis B Vaccine(1 of 3 - 19+ 3-dose series) Never done DTaP,Tdap,Td Vaccine(2 - Td or Tdap) due on 01/25/2019 Covid-19 Vaccine() Never done HIV Screening due on 03/18/2025 Influenza Vaccine(Season Ended) due on 07/26/2024 Annual PCP Team Chronic Disease Visit due on 04/15/2025 BP Controlled (<130/80) due on 04/15/2025 Lipid Screening due on 03/21/2029 Behavioral Health Screening Completed Hepatitis C Screening Completed HPV Vaccine Aged Out ASSESSMENT/PLAN: 1. Hypertension, essential - ICD9: 401.9, ICD10: I10 (primary diagnosis) - Controlled - Co (more content not included)... Normal [facility] Comprehensive metabolic 2000 panelon 04-15-2024 Albumin [Mass/Vol] 4.5 g/dL Normal 3.9-4.9 [facility] Comment on above: Order Comment: Speci men Type: BLOOD SPECIMENOrdering Facility: [facility] Address: [address] [place] [address] Performed By: #### 2 4323-8 ####[facility] LABCLIA [id number] [place] [address] [place] ALP [Catalytic activity/Vol] 82 U/L Normal 38-113 [facility] Comment on above: Order Comment: Speci men Type: BLOOD SPECIMENOrdering Facility: [facility] Address: [address] [place] [address] Performed By: #### 2 4323-8 ####[facility] LABIA [id number] [place] [address] [place] ALT [Catalytic activity/Vol] 29 U/L Normal 10-54 [facility] Comment on above: Order Comment: Speci men Type: BLOOD SPECIMENOrdering Facility: [facility] Address: [address] [place] [address] Performed By: #### 2 4323-8 ####[facility] LABCLIA [id number] [place] [id number] [place] Anion gap [Moles/Vol] 13 mmol/L Normal 9-18 [facility] Comment on above: Order Comment: Speci men Type: BLOOD SPECIMENOrdering Facility: [facility] Address: [address] [place], [place] [address] Performed By: #### 2 4323-8 ####[facility] LABCLIA [id number] [place] [address] [place] AST [Catalytic activity/Vol] 25 U/L Normal 14-40 [facility] Comment on above: Order Comment: Speci men Type: BLOOD SPECIMENOrdering Facility: [facility] Address: [address] [place], [place] [address] Performed By: #### 2 4323-8 ####[facility] LABCLIA [id number] [place] [address] [place] Bilirubin [Mass/Vol] 1.3 mg/dL Normal 0.2-1.[address] [facility] Comment on above: Order Comment: Speci men Type: BLOOD SPECIMENOrdering Facility: [facility] Address: [address] [place], [place] [address] Performed By: #### 2 4323-8 ####[facility] LABCLIA [id number] [place] [id number] [place] Calcium [Mass/Vol] 9.6 mg/dL Normal 8.5-10.2 [facility] Comment on above: Order Comment: Speci men Type: BLOOD SPECIMENOrdering Facility: [facility] Address: [address] [place], [place] [address] Performed By: #### 2 4323-8 ####[facility] LABCLIA [id number] [place] [address] [place] Chloride [Moles/Vol] 98 mmol/L Normal 97-[address] [facility] Comment on above: Order Comment: Speci men Type: BLOOD SPECIMENOrdering Facility: [facility] Address: [address] [place] [address] Performed By: #### 2 4323-8 ####[facility] LABCLIA [id number] [place] [address] [place] CO2 [Moles/Vol] 25 mmol/L Normal 22-30 [facility] Comment on above: Order Comment: Speci men Type: BLOOD SPECIMENOrdering Facility: [facility] Address: [address] [place] [address] Performed By: #### 2 4323-8 ####[facility] LABCLIA [id number] [place] [address] [place] Creatinine [Mass/Vol] 1.07 mg/dL Normal 0.73-1.22 [facility] Comment on above: Order Comment: Speci men Type: BLOOD SPECIMENOrdering Facility: [facility] Address: [address] [place] [address] Performed By: #### 2 4323-8 ####[facility] LABCLIA [id number] [place] [address] [place] Creatinine and Glomerular filtration rate.predicted panel (S/P/Bld) 88 mL/min/1.73m??? Normal >=60 [facility] Comment on above: Order Comment: Speci men Type: BLOOD SPECIMENOrdering Facility: [facility] Address: [address] [place] [address] Result Comment: Fatoumata mated Glomerular Filtration Rate (eGFR) is calculated using the 2020 CKD-EPI creatinine equation. This equation utilizes serum creatinine, sex, and age as parameters. The creatinine assay has traceable calibration to isotope dilution-mass spectrometry. Refer to KDIGO guidelines for clinical interpretation. In patients with unstable renal function, e.g. those with acute kidney injury, the eGFR may not accurately reflect actual GFR. Performed By: #### 2 4323-8 ####[facility] LABIA [id number] [place] [address] [place] Glucose [Mass/Vol] 92 mg/dL Normal 74-99 [facility] Comment on above: Order Comment: Speci men Type: BLOOD SPECIMENOrdering Facility: [facility] Address: [address] [place] [address] Result Comment: The [place] Diabetes [employer] (ADA) provides guidance for cutoff values for fasting glucose and random glucose. The ADA defines fasting as no caloric intake for at least 8 hours. Fasting plasma glucose results between 100 to 125 mg/dL indicate increased risk for diabetes (prediabetes). Fasting plasma glucose results greater than or equal to 126 mg/dL meet the criteria for diagnosis of diabetes. In the absence of unequivocal hyperglycemia, results should be confirmed by repeat testing. In a patient with classic symptoms of hyperglycemia or hyperglycemic crisis, random plasma glucose results greater than or equal to 200 mg/dL meet the criteria for diagnosis of diabetes. Reference: Standards of Medical Care in Diabetes 2016, [place] [employer]. Diabetes Care. 2016.39(Suppl 1). Performed By: #### 2 4323-8 ####[facility] LABIA [id number] [place] [address] [place] Potassium [Moles/Vol] 4.4 mmol/L Normal 3.7-5.1 [facility] Comment on above: Order Comment: Speci men Type: BLOOD SPECIMENOrdering Facility: [facility] Address: [address] [place] [address] Performed By: #### 2 4323-8 ####[facility] LABIA [id number] [place] [address] [place] Protein [Mass/Vol] 7.3 g/dL Normal 6.3-8.0 [facility] Comment on above: Order Comment: Speci men Type: BLOOD SPECIMENOrdering Facility: [facility] Address: [address] [place] [address] Performed By: #### 2 4323-8 ####[facility] LABCLIA [id number] [place] [id number] [place] Sodium [Moles/Vol] 136 mmol/L Normal 136-144 [facility] Comment on above: Order Comment: Speci men Type: BLOOD SPECIMENOrdering Facility: [facility] Address: [address] [place] [address] Performed By: #### 2 4323-8 ####[facility] LABCLIA [id number] [place] [address] [place] Urea nitrogen [Mass/Vol] 17 mg/dL Normal 9-24 [facility] Comment on above: Order Comment: Speci men Type: BLOOD SPECIMENOrdering Facility: [facility] Address: [address] [place] [address] Performed By: #### 2 4323-8 ####[facility] LABCLIA [id number] [address] [place] 03-24-2024 YUNGN Telephone (FAMJorgeWS) ARTIE CABRERA ([id number]) 1980 M Date Time Provider Department 03/24/24 VIVIEN GUSTAFSON During your visit today, we recorded the following information about you: Vivien Gustafson APRN.CNP 03/24/2024 7:42 AM Signed Bilirubin slightly elevated. Can recheck in one month. LDL ) bad cholesterol) slightly elevated. Recommend lower saturated fat diet along with at least 150 minutes of exercise per week. ROHAN Schneider Kathryn, MA 03/24/2024 9:27 AM Signed Pt notified of results via [employer]. Melany Marquez Ma Allergies As of Date: 03/24/2024 Noted Allergy Reaction NAPROXEN 01/25/2009 8 - GI Upset MORPHINE 09/01/2021 11 - Vomiting Comments: dizziness Date Reviewed: 03/18/2024 Reviewed by: Lucia Andrews LPN - Fully Assessed Primary Visit Diagnosis:Elevated bilirubin [R17] Order(s):COMPREHENSIVE METABOLIC PANEL [SQCMP] Order #: [id number] FUTURE Prescriptions as of 03/24/2024 - lisinopril (ZESTRIL) 10 mg tablet Take 1 tablet by mouth once daily. For blood pressure Problem List As Of Date 03/24/2024 Noted Resolved Atypical chest pain [R07.89] Chronic RUQ pain [R10.11, G89.29] 12/06/2020 Elevated blood pressure reading [R03.0] Obesity, Class I, BMI 30-34.9 [E66.9] 02/06/2022 Hypertension, essential [I10] 02/06/2022 Encounter Status:Closed by MELANY MARQUEZ on 03/24/24 Normal [facility] CBC W Auto Differential pane l (Bld)on 03-21-2024 Basophils (Bld) [#/Vol] 0.05 10*3/uL Normal <0.11 [facility] Comment on above: Order Comment: Speci men Type: BLOOD SPECIMENOrdering Facility: [facility] Address: [address] [place] [address] Performed By: #### 5 7021-8 ####[facility] LABCLIA [id number] [place] [address] [place] Basophils/100 WBC (Bld) 0.8 % Normal [facility] Comment on above: Order Comment: Speci men Type: BLOOD SPECIMENOrdering Facility: [facility] Address: [address] [place] [address] Performed By: #### 5 7021-8 ####[facility] LABCLIA [id number] [place] [address] [place] Differential cell count method Nom (Bld) Auto Normal [facility] Comment on above: Order Comment: Speci men Type: BLOOD SPECIMENOrdering Facility: [facility] Address: [address] [place] [address] Performed By: #### 5 7021-8 ####[facility] LABCLIA [id number] [place] [address] [place] Eosinophils (Bld) [#/Vol] 0.14 10*3/uL Normal <0.46 [facility] Comment on above: Order Comment: Speci men Type: BLOOD SPECIMENOrdering Facility: [facility] Address: [address] [place] [address] Performed By: #### 5 7021-8 ####[facility] LABCLIA [id number] [place] [address] [place] Eosinophils/100 WBC (Bld) 2.2 % Normal [facility] Comment on above: Order Comment: Speci men Type: BLOOD SPECIMENOrdering Facility: [facility] Address: [address] [place] [address] Performed By: #### 5 7021-8 ####[facility] LABCLIA [id number] [place] [address] [place] Erythrocyte distribution width (RBC) [Ratio] 12.6 % Normal 11.5-15.0 [facility] Comment on above: Order Comment: Speci men Type: BLOOD SPECIMENOrdering Facility: [facility] Address: [address] [place] [address] Performed By: #### 5 7021-8 ####[facility] LABCLIA [id number] [place] [address] [place] Hematocrit (Bld) [Volume fraction] 45.3 % Normal 39.0-51.0 [facility] Comment on above: Order Comment: Speci men Type: BLOOD SPECIMENOrdering Facility: [facility] Address: [address] [place] [address] Performed By: #### 5 7021-8 ####[facility] LABCLIA [id number] [place] [address] [place] Hemoglobin (Bld) [Mass/Vol] 15.0 g/dL Normal 13.0-17.0 [facility] Comment on above: Order Comment: Speci men Type: BLOOD SPECIMENOrdering Facility: [facility] Address: [address] [place] [address] Performed By: #### 5 7021-8 ####[facility] LABCLIA [id number] [place] [address] [place] Immature granulocytes (Bld) [#/Vol] 10*3/uL Normal <0.10 [facility] Comment on above: Order Comment: Speci men Type: BLOOD SPECIMENOrdering Facility: [facility] Address: [address] [place] [address] Performed By: #### 5 7021-8 ####[facility] LABCLIA [id number] [place] [address] [place] Immature granulocytes/100 WBC (Bld) 0.3 % Normal [facility] Comment on above: Order Comment: Speci men Type: BLOOD SPECIMENOrdering Facility: [facility] Address: [address] [place] [address] Performed By: #### 5 7021-8 ####[facility] LABCLIA [id number] [place] [address] [place] Lymphocytes (Bld) [#/Vol] 2.58 10*3/uL Normal 1.00-4.00 [facility] Comment on above: Order Comment: Speci men Type: BLOOD SPECIMENOrdering Facility: [facility] Address: [address] [place] [address] Performed By: #### 5 7021-8 ####[facility] LABCLIA [id number] [place] [address] [place] Lymphocytes/100 WBC (Bld) 40.2 % Normal [facility] Comment on above: Order Comment: Speci men Type: BLOOD SPECIMENOrdering Facility: [facility] Address: [address] [place] [address] Performed By: #### 5 7021-8 ####[facility] LABIA [id number] [place] [address] [place] MCH (RBC) [Entitic mass] 30.5 pg Normal 26.0-34.0 [facility] Comment on above: Order Comment: Speci men Type: BLOOD SPECIMENOrdering Facility: [facility] Address: [address] [place] [address] Performed By: #### 5 7021-8 ####[facility] LABIA [id number] [place] [address] [place] MCHC (RBC) [Mass/Vol] 33.1 g/dL Normal 30.5-36.0 [facility] Comment on above: Order Comment: Speci men Type: BLOOD SPECIMENOrdering Facility: [facility] Address: [address] [place] [address] Performed By: #### 5 7021-8 ####[facility] LABIA [id number] [place] [address] [place] MCV (RBC) [Entitic vol] 92.3 fL Normal 80.0-100.0 [facility] Comment on above: Order Comment: Speci men Type: BLOOD SPECIMENOrdering Facility: [facility] Address: [address] [place] [address] Performed By: #### 5 7021-8 ####[facility] LABIA [id number] [place] [address] [place] Monocytes (Bld) [#/Vol] 1.00 10*3/uL High <0.87 [facility] Comment on above: Order Comment: Speci men Type: BLOOD SPECIMENOrdering Facility: [facility] Address: [address] [place] [address] Performed By: #### 5 7021-8 ####[facility] LABCLIA [id number] [place] [address] [place] Monocytes/100 WBC (Bld) 15.6 % Normal [facility] Comment on above: Order Comment: Speci men Type: BLOOD SPECIMENOrdering Facility: [facility] Address: [address] [place] [address] Performed By: #### 5 7021-8 ####[facility] LABCLIA [id number] [place] [address] [place] Neutrophils (Bld) [#/Vol] 2.62 10*3/uL Normal 1.45-7.50 [facility] Comment on above: Order Comment: Speci men Type: BLOOD SPECIMENOrdering Facility: [facility] Address: [address] [place] [address] Performed By: #### 5 7021-8 ####[facility] LABIA [id number] [place] [address] [place] Neutrophils/100 WBC (Bld) 40.9 % Normal [facility] Comment on above: Order Comment: Speci men Type: BLOOD SPECIMENOrdering Facility: [facility] Address: [address] [place] [address] Performed By: #### 5 7021-8 ####[facility] LABIA [id number] [place] [address] [place] Nucleated RBC (Bld) [#/Vol] 10*3/uL Normal <0.01 [facility] Comment on above: Order Comment: Speci men Type: BLOOD SPECIMENOrdering Facility: [facility] Address: [address] [place] [address] Performed By: #### 5 7021-8 ####[facility] LABIA [id number] [place] [address] [place] Nucleated RBC/100 WBC (Bld) [Ratio] 0.0 /100 WBC Normal [facility] Comment on above: Order Comment: Speci men Type: BLOOD SPECIMENOrdering Facility: [facility] Address: [address] [place] [address] Performed By: #### 5 7021-8 ####[facility] LABIA [id number] [place] [address] [place] Platelet mean volume (Bld) [Entitic vol] 9.1 fL Normal 9.0-12.7 [facility] Comment on above: Order Comment: Speci men Type: BLOOD SPECIMENOrdering Facility: [facility] Address: [address] [place] [address] Performed By: #### 5 7021-8 ####[facility] LABIA [id number] [place] [address] [place] Platelets (Bld) [#/Vol] 285 10*3/uL Normal 150-400 [facility] Comment on above: Order Comment: Speci men Type: BLOOD SPECIMENOrdering Facility: [facility] Address: [address] [place] [address] Performed By: #### 5 7021-8 ####[facility] LABIA [id number] [place] [address] [place] RBC (Bld) [#/Vol] 4.91 10*6/uL Normal 4.20-6.00 [facility] Comment on above: Order Comment: Speci men Type: BLOOD SPECIMENOrdering Facility: [facility] Address: [address] [place] [address] Performed By: #### 5 7021-8 ####[facility] LABIA [id number] [place] [address] [place] WBC (Bld) [#/Vol] 6.41 10*3/uL Normal 3.70-11.00 [facility] Comment on above: Order Comment: Speci men Type: BLOOD SPECIMENOrdering Facility: [facility] Address: [address] [place] [address] Performed By: #### 5 7021-8 ####[facility] LABCLIA [id number] [place] [address] [place] Comprehensive metabolic 2000 panelon 03-21-2024 Albumin [Mass/Vol] 4.2 g/dL Normal 3.9-4.9 [facility] Comment on above: Order Comment: Speci men Type: BLOOD SPECIMENOrdering Facility: [facility] Address: [address] [place] [address] Performed By: #### 3 016-3, 98043-8, 81290-6 ####[facility] LABIA [id number] [place] [address] [place] ALP [Catalytic activity/Vol] 89 U/L Normal 38-113 [facility] Comment on above: Order Comment: Speci men Type: BLOOD SPECIMENOrdering Facility: [facility] Address: [address] [place] [address] Performed By: #### 3 016-3, 69541-2, 33848-2 ####[facility] LABIA [id number] [place] [address] [place] ALT [Catalytic activity/Vol] 26 U/L Normal 10-54 [facility] Comment on above: Order Comment: Speci men Type: BLOOD SPECIMENOrdering Facility: [facility] Address: [address] [place] [address] Performed By: #### 3 016-3, 36023-3, 94588-6 ####[facility] LABIA [id number] [place] [address] [place] Anion gap [Moles/Vol] 11 mmol/L Normal 9-18 [facility] Comment on above: Order Comment: Speci men Type: BLOOD SPECIMENOrdering Facility: [facility] Address: [address] [place] [address] Performed By: #### 3 016-3, 56654-3, ####[facility] LABCLIA [id number] [place] [address] [place] AST [Catalytic activity/Vol] 26 U/L Normal 14-40 [facility] Comment on above: Order Comment: Speci men Type: BLOOD SPECIMENOrdering Facility: [facility] Address: [address] [place] [address] Performed By: #### 3 016-3, 86872-5, ####[facility] LABCLIA [id number] [place] [address] [place] Bilirubin [Mass/Vol] 1.7 mg/dL High 0.2-1.[address] [facility] Comment on above: Order Comment: Speci men Type: BLOOD SPECIMENOrdering Facility: [facility] Address: [address] [place] [address] Performed By: #### 3 016-3, 22242-9, ####[facility] LABCLIA [id number] [place] [address] [place] Calcium [Mass/Vol] 9.6 mg/dL Normal 8.5-10.2 [facility] Comment on above: Order Comment: Speci men Type: BLOOD SPECIMENOrdering Facility: [facility] Address: [address] [place] [address] Performed By: #### 3 016-3, 94232-2, ####[facility] LABCLIA [id number] [place] [id number] [place] Chloride [Moles/Vol] 100 mmol/L Normal 97-[address] [facility] Comment on above: Order Comment: Speci men Type: BLOOD SPECIMENOrdering Facility: [facility] Address: [address] [place] [address] Performed By: #### 3 016-3, 84401-6, 31168-8 ####[facility] LABCLIA [id number] [place] [address] [place] CO2 [Moles/Vol] 26 mmol/L Normal 22-30 [facility] Comment on above: Order Comment: Speci men Type: BLOOD SPECIMENOrdering Facility: [facility] Address: [address] [place] [address] Performed By: #### 3 016-3, 87376-8, ####[facility] LABIA [id number] [place] [address] [place] Creatinine [Mass/Vol] 1.15 mg/dL Normal 0.73-1.22 [facility] Comment on above: Order Comment: Speci men Type: BLOOD SPECIMENOrdering Facility: [facility] Address: [address] [place] [address] Performed By: #### 3 016-3, , ####[facility] [id number] [place] [address] [place] Creatinine and Glomerular filtration rate.predicted panel (S/P/Bld) 81 mL/min/1.73m??? Normal >=60 [facility] Comment on above: Order Comment: Speci men Type: BLOOD SPECIMENOrdering Facility: [facility] Address: [address] [place] [address] Result Comment: Fatoumata mated Glomerular Filtration Rate (eGFR) is calculated using the 2020 CKD-EPI creatinine equation. This equation utilizes serum creatinine, sex, and age as parameters. The creatinine assay has traceable calibration to isotope dilution-mass spectrometry. Refer to KDIGO guidelines for clinical interpretation. In patients with unstable renal function, e.g. those with acute kidney injury, the eGFR may not accurately reflect actual GFR. Performed By: #### 3 016-3, 51087-3, ####[facility] LABIA [id number] [place] [id number] [place] Glucose [Mass/Vol] 88 mg/dL Normal 74-99 [facility] Comment on above: Order Comment: Speci men Type: BLOOD SPECIMENOrdering Facility: [facility] Address: [address] [place] [address] Result Comment: The [place] Diabetes Association (ADA) provides guidance for cutoff values for fasting glucose and random glucose. The ADA defines fasting as no caloric intake for at least 8 hours. Fasting plasma glucose results between 100 to 125 mg/dL indicate increased risk for diabetes (prediabetes). Fasting plasma glucose results greater than or equal to 126 mg/dL meet the criteria for diagnosis of diabetes. In the absence of unequivocal hyperglycemia, results should be confirmed by repeat testing. In a patient with classic symptoms of hyperglycemia or hyperglycemic crisis, random plasma glucose results greater than or equal to 200 mg/dL meet the criteria for diagnosis of diabetes. Reference: Standards of Medical Care in Diabetes 2016, [place] Diabetes Association. Diabetes Care. 2016.39(Suppl 1). Performed By: #### 3 016-3, 51487-4, ####[facility] LABCLIA [id number] [place] [address] [place] Potassium [Moles/Vol] 4.1 mmol/L Normal 3.7-5.1 [facility] Comment on above: Order Comment: Haider restrepo Type: BLOOD SPECIMENOrdering Facility: [facility] Address: [address] [place] [address] Performed By: #### 3 016-3, 18249-0, 16702-0 ####[facility] LABCLIA [id number] [place] [address] [place] Protein [Mass/Vol] 7.3 g/dL Normal 6.3-8.0 [facility] Comment on above: Order Comment: Gaeli lauro Type: BLOOD SPECIMENOrdering Facility: [facility] Address: [address] [place] [address] Performed By: #### 3 016-3, 15958-1, 23932-7 ####[facility] LABCLIA [id number] [place] [address] [place] Sodium [Moles/Vol] 137 mmol/L Normal 136-144 [facility] Comment on above: Order Comment: Speci men Type: BLOOD SPECIMENOrdering Facility: [facility] Address: [address] [place] [address] Performed By: #### 3 016-3, 97620-9, 93957-4 ####[facility] LABCLIA [id number] [place] [address] [place] Urea nitrogen [Mass/Vol] 21 mg/dL Normal 9-24 [facility] Comment on above: Order Comment: Gaeli men Type: BLOOD SPECIMENOrdering Facility: [facility] Address: [address] [place] [address] Performed By: #### 3 016-3, 83408-8, ####[facility] LABIA [id number] [place] [address] [place] HbA1c (Bld)on 03-21-2024 Average glucose Estimated from glycated hemoglobin (Bld) [Mass/Vol] 94 mg/dL Normal [facility] Comment on above: Order Comment: Haider men Type: BLOOD SPECIMENOrdering Facility: [facility] Address: [address] [place] [address] Result Comment: eAG: (Estimated average glucose) is a calculated value from HgbA1c and is pharmaceutical representative of the average blood glucose level in the last 2-3 month period. Performed By: #### 5 5454-3 ####[facility] [id number] [place] [address] [place] HbA1c (Bld) [Mass fraction] 4.9 % Normal 4.3-5.6 [facility] Comment on above: Order Comment: Gaeli men Type: BLOOD SPECIMENOrdering Facility: [facility] Address: [address] [place] [address] Result Comment: [place] Diabetes Association guidelines indicate that patients with HgbA1c in the range 5.7-6.4% are at increased risk for development of diabetes, and intervention by lifestyle modification may be beneficial. HgbA1c greater or equal to 6.5% is considered diagnostic of diabetes. Performed By: #### 5 5454-3 ####[facility] LABCLIA [id number] [place] [address] [place] Lipid 1996 panelon 4 Cholesterol [Mass/Vol] 168 mg/dL Normal <200 [facility] Comment on above: Order Comment: Speci men Type: BLOOD SPECIMENOrdering Facility: [facility] Address: [address] [place] [address] Result Comment: <200 mg/dL, Desirable 200-239 mg/dL, Borderline high >239 mg/dL, High Performed By: #### 3 016-3, 89965-0, 47387-9 ####[facility] LABIA [id number] [address] [place] Cholesterol in HDL [Mass/Vol] 34 mg/dL Low >39 [facility] Comment on above: Order Comment: Speci men Type: BLOOD SPECIMENOrdering Facility: [facility] Address: [address] [place] [address] Result Comment: 40-5 9 mg/dL, Acceptable >59 mg/dL, High: Negative risk factor for coronary heart disease <40 mg/dL, Low: Positive risk factor for coronary heart disease Performed By: #### 3 016-3, 11518-2, 14990-4 ####[facility] LABIA [id number] [address] [place] Cholesterol in LDL [Mass/Vol] 118 mg/dL High <100 [facility] Comment on above: Order Comment: Speci men Type: BLOOD SPECIMENOrdering Facility: [facility] Address: [address] [place] [address] Result Comment: <100 mg/dL, Optimal 100-129 mg/dL, Near optimal/above optimal 130-159 mg/dL, Borderline high 160-189 mg/dL, High >189 mg/dL, Very high Secondary prevention optimal LDL Cholesterol levels are recommended to be < 70 mg/dL Performed By: #### 3 016-3, 35738-0, 36862-5 ####[facility] LABCLIA [id number] [place] [address] [place] Cholesterol in LDL/Cholesterol in HDL [Mass ratio] 3.47 {ratio} High <2.54 [facility] Comment on above: Order Comment: Speci men Type: BLOOD SPECIMENOrdering Facility: [facility] Address: [address] [place] [address] Result Comment: Ulysses pepe: 1. National Cholesterol Education Program ATP III Guideline At-A-Glance Quick Desk Reference: National Heart, Lung, and Blood [place]. National Institutes of Health. 2001: NIH Publication No. 01-3305. 2. An International Atherosclerosis Society position paper: global recommendations for the management of dyslipidemia: executive summary, Atherosclerosis. 2014: 232(2):410-413. Performed By: #### 3 016-3, 35500-0, ####[facility] LABCLIA [id number] [place] [address] [place] Cholesterol in VLDL [Mass/Vol] 16 mg/dL Normal <30 [facility] Comment on above: Order Comment: Haider restrepo Type: BLOOD SPECIMENOrdering Facility: [facility] Address: [address] [place] [address] Performed By: #### 3 016-3, 08488-8, 23173-5 ####[facility] LABCLIA [id number] [place] [address] [place] Cholesterol non HDL [Mass/Vol] 134 mg/dL High <130 [facility] Comment on above: Order Comment: Gaeli men Type: BLOOD SPECIMENOrdering Facility: [facility] Address: [address] [place] [address] Result Comment: <130 mg/dL, Optimal 130-159 mg/dL, Near optimal/above optimal 160-189 mg/dL, Borderline high 190-219 mg/dL, High >219 mg/dL, Very high Secondary prevention optimal non HDL Cholesterol levels are recommended to be <100 mg/dL Performed By: #### 3 016-3, 47138-0, 68369-4 ####[facility] LABCLIA [id number] [place] [address] [place] Cholesterol.total/Choles terol in HDL [Mass ratio] 4.94 {ratio} Normal <5.10 [facility] Comment on above: Order Comment: Speci men Type: BLOOD SPECIMENOrdering Facility: [facility] Address: [address] [place] [address] Performed By: #### 3 016-3, 09505-3, 01368-4 ####[facility] LABIA [id number] [address] [place] FASTING TIME 12 hrs Normal [facility] Comment on above: Order Comment: Speci men Type: BLOOD SPECIMENOrdering Facility: [facility] Address: [address] [place] [address] Performed By: #### 3 016-3, 33883-6, 91717-3 ####[facility] LABIA [id number] [place] [address] [place] Triglyceride [Mass/Vol] 80 mg/dL Normal <150 [facility] Comment on above: Order Comment: Speci men Type: BLOOD SPECIMENOrdering Facility: [facility] Address: [address] [place] [address] Result Comment: <150 mg/dL, Normal 150-199 mg/dL, Borderline high 200-499 mg/dL, High >499 mg/dL, Very high Performed By: #### 3 016-3, 73371-8, 35005-9 ####[facility] LABIA [id number] [place] [address] [place] TSH SerPl-aCncon 03-21-2024 TSH Qn 3.800 m[IU]/L Normal 0.270-4.200 [facility] Comment on above: Order Comment: Speci men Type: BLOOD SPECIMENOrdering Facility: [facility] Address: [address] [place] [address] Performed By: #### 3 016-3, 64185-5, 58992-2 ####[facility] LABCLBEE [id number] [address] [id number] [address] [place] CNOVon 03-18-2024 CNOV Office Visit (FAMPWS ) ARTIE CABRERA ([id number]) 1980 M Date Time Provider Department 03/18/24 9:20 AM VIVIEN GUSTAFSON During your visit today, we recorded the following information about you: Pulse Respiration Blood pressure Weight 67/minute 16/minute 146/78 92.6 kg Height 1.6 m Vivien Gustafson APRN.ADJUNCT LECTURER 03/18/2024 12:12 PM Signed 03/18/2024 Patient presents with: Physical SUBJECTIVE: This is a 43 year old that is here today for Above Complaints. Here to re establish care since his provider papo. His last appointment in primary care was on 02/06/2022. Has been out of BP meds for about eight months. Does not check BP at home Occasional blurry vision and increased thirst. Also admits to polyuria. Admits to drinking quite a bit of caffienated sodas about 4-5 cans of InstallFree or [employer]version [employer]. Feels fatigued a lot. Sleeps about six hours per night. Denies hx of snoring or daytime drowsiness. Latest Ref Rng 03/18/2024 GLUCOSE UA (POCT) Negative mg/dL Negative BILIRUBIN UA (POCT) Negative Negative KETONE UA (POCT) Negative mg/dL Negative SPECIFIC GRAVITY UA (POCT) 1.005 - 1.030 >=1.030 HEMOGLOBIN/BLOOD UA (POCT) Negative Negative PH UA (POCT) 4.5 - 8.0 5.5 PROTEIN UA (POCT) Negative mg/dL Negative UROBILINOGEN UA (POCT) Normal E.U./dL 0.2 NITRITE UA (POCT) Negative Negative LEUKOCYTES UA (POCT) Negative Negative COLOR UA (POCT) Yellow CLARITY UA (POCT) Clear PAST MEDICAL HISTORY Diagnosis Date Atypical chest pain Elevated blood pressure reading Hypertension, essential 02/06/2022 Obesity, Class I, BMI 30-34.9 02/06/2022 Painful respiration pleurisy ALLERGIES Naproxen and Morphine MEDICATIONS Current Outpatient Medications Medication Sig lisinopril (ZESTRIL, PRINIVIL) 10 mg tablet Take 1 tablet by mouth once daily. For blood pressure No current facility-administered medications for this visit. Medications and allergies reviewed by this provider. SOCIAL HISTORY Social History Tobacco Use Smoking status: Former Packs/day: 3.00 Years: 10.00 Additional pack years: 0.00 Total pack years: 30.00 Types: Cigarettes Quit date: 12/26/2019 Years since quittin.2 Smokeless tobacco: Never Tobacco comments: june 2005. Vaping Use Vaping Use: Never used Substance Use Topics Alcohol use: No Drug use: No Comment: none since 2004 marijuana REVIEW OF SYSTEMS GENERAL: No weight loss, malaise or fevers HEENT: Negative for frequent or significant headaches, No changes in hearing. no nose bleeds or other nasal problems NECK: Negative for lumps, goiter, pain and significant neck swelling RESPIRATORY: Negative for cough, hemoptysis, wheezing, COPD, dyspnea or shortness of breath CARDIOVASCULAR: Negative for leg swelling, hypertension, CHF or palpitations. Hx of chest pain in the past GI: No nausea, vomiting, or diarrhea : No history of dysuria or incontinence, MUSCULOSKELETAL: Negative for joint pain or swelling, back pain or muscle pain SKIN: Negative for lesions, rash, and itching PSYCH: Negative for sleep disturbance, mood disorder and recent psychosocial stressors HEMATOLOGY/LYMPHOLOGY: Negative for prolonged bleeding, bruising easily or swollen nodes ENDOCRINE: Negative for cold or heat intolerance,and goiter NEURO: No history of headaches, syncope, paralysis, seizures or tremors All other reviewed and negative other than HPI. OBJECTIVE: BP 146/78 Pulse 67 Resp 16 Ht 160 cm (5' 2.99) Wt 92.6 kg (204 lb 3.2 oz) SpO2 98% BMI 36.18 kg/m? . Vital signs reviewed by this provider. APPEARANCE Well appearing, alert, in no acute distress, well-hydrated, well nourished. EYES PERRLA, conjunctiva and sclera normal. EARS External ears normal, canals clear NECK Supple, no adenopathy; thyroid symmetric, normal size, no bruits HEART RRR with normal S1 and S2, no murmurs, no gallops, no JVD appreciated LUNG clear to auscultation EXTREMITIES Extremities normal, No deformities, No skin discoloration, and No edema SKIN Skin color, texture, turgor normal, no suspicious rashes or lesions to exposed sk in BP Controlled (<130/80) Never done Hepatitis B Vaccine(1 of 3 - 19+ 3-dose series) Never done DTaP,Tdap,Td Vaccine(2 - Td or Tdap) due on 01/25/2019 Covid-19 Vaccine( season) Never done HIV Screening due on 03/18/2025 Influenza Vaccine(Season Ended) due on 07/26/2024 Annual PCP Team Chronic Disease Visit due on 03/18/2025 Lipid Screening due on 12/13/2025 Behavioral Health Screening Completed Hepatitis C Screening Completed HPV Vaccine Aged Out ASSESSMENT/PLAN: 1. Encounter for medical examination to establish care - ICD9: V70.9, ICD10: Z00.00 (primary diagnosis) - Counseled on healthy diet and regular exercise - Discussed need for and benefit of weight loss. BMI 36.18 kg/(m2) - Follow up for annual exam in one year (more content not included)... Normal [facility] UA DIP, URINE (POC)on 2023 BILIRUBIN UA (POCT) Negative Negative [facility] CLARITY UA (POCT) Clear [facility] COLOR UA (POCT) Yellow [facility] GLUCOSE UA (POCT) Negative Negative mg/dL [facility] Hemoglobin Ql (U) Negative [facility] KETONE UA (POCT) Negative Negative mg/dL [facility] LEUKOCYTES UA (POCT) Negative Negative [facility] NITRITE UA (POCT) Negative Negative [facility] PH UA (POCT) 5.5 4.5 - 8.0 [facility] Protein Ql (U) Negative Negative mg/dL [facility] SPECIFIC GRAVITY UA (POCT) >=1.030 1.005 - 1.030 [facility] UROBILINOGEN UA (POCT) 0.2 Iram l E.U./dL [facility] Location:[facility], [address] [facility], [place], [place], [id number] [place] [address] POINT OF CARE [facility] Absolute lymphocyte countOrd ered By: Hunter Melendrez on 12-26-2023 Lymphocytes Auto (Unsp spec) [#/Vol] 1.93 10*3/uL 0.83-4.51 [facility] Automated lymphocyte count a s percentage of total leukocytesOrdered By: Hunter Melendrez on 12-26-2023 Lymphocytes/100 WBC Auto (Unsp spec) 28.2 % 19-41 [facility] Basophil percentageOrdered B y: Hunter Melendrez on 12-26-2023 Basophils/100 WBC (Bld) 0.7 % 0-1 [facility] Chloride [Moles/Vol] 108 mmol/L 98-107 [facility] Eosinophils/100 WBC (Bld) 1.2 % 0-5 [facility] Glucose [Mass/Vol] 124 mg/dL 74-106 [facility] Comment on above: Fasting Glucose resu lt from 100 to 125 mg/dL suggests IMPAIRED HOMEOSTASIS per A.D.A. criteria. Hemoglobin (Bld) [Mass/Vol] 14.8 g/dL 13.0-16.5 [facility] Monocytes/100 WBC (Bld) 10.4 % 0-10 [facility] Neutrophils (Bld) [#/Vol] 4.1 10*3/uL 2.0-7.7 [facility] Neutrophils/100 WBC (Bld) 59.2 % 47-70 [facility] Potassium [Moles/Vol] 3.8 mmol/L 3.5-5.1 [facility] Sodium [Moles/Vol] 137 mmol/L 136-145 [facility] WBC (Bld) [#/Vol] 6.8 10*3/uL 4.4-11.0 [facility] Determination of erythrocyte mean corpuscular volume (MCV)Ordered By: Hunter Melendrez on 12-26-2023 MCV (RBC) [Entitic vol] 91.1 fL 80-94 [facility] Erythrocyte distribution wid th ratioOrdered By: Hunter Melendrez on 12-26-2023 Erythrocyte distribution width (RBC) [Ratio] 12.7 % 11.6-14.6 [facility] Erythrocyte distribution wid th standard deviationOrdered By: Hunter Melendrez on 12-26-2023 Erythrocyte distribution width (RBC) [Entitic vol] 41.2 fL 35.1-43.9 [facility] Hematocrit Auto (Bld) [Volum e fraction]Ordered By: Hunter Melendrez on 12-26-2023 Hematocrit (Bld) [Volume fraction] 43.9 % 40-54 [facility] Immature granulocytes/100 WB C Auto (Bld)Ordered By: Hunter Melendrez on 12-26-2023 Immature granulocytes/100 WBC (Bld) 0.300 % 0.0-0.9 [facility] Comment on above: IG% - Immature Granu locytes (promyelocytes, myelocytes and metamyelocytes) > 1% indicates that a LEFT SHIFT is Present. Laboratory - Chemistry and C hemistry - challengeOrdered By: Hunter Melendrez on 12-26-2023 CO2 [Moles/Vol] 26.0 mmol/L 21.0-32.0 [facility] Urea nitrogen/Creatinine [Mass ratio] 15.0 mg/mg 10-20 [facility] Laboratory - Hematology and Cell countsOrdered By: Hunter Melendrez on 12-26-2023 MCH (RBC) [Entitic mass] 30.7 pg 27.0-32.0 [facility] MCHC (RBC) [Mass/Vol] 33.7 g/dL 32-36 [facility] Nucleated RBC/100 WBC (Bld) [Ratio] 0 % 0-5 [facility] Platelets (Bld) [#/Vol] 309 10*3/uL 150-450 [facility] No Panel InformationOrdered By: Hunter Melendrez on 12-26-2023 Estimated Creatinine Clearance Calc 88.58 ml/min [facility] Estimated GFR (MDRD) Amer 97 mL/min >60 [facility] Comment on above: GFR Calc Estimated GFR (MDRD) Non-Af Amer 80 mL/min >60 [facility] Comment on above: Non- GFR Calc Troponin I High Sensitivity 4 pg/mL 3.0-78.0 [facility] Comment on above: Please Note: New Elodia t Units and Gender Specific Reference Ranges. For more information see Policy Stat Procedure [place] High Sensitivity Troponin (TNIH) and attachments. Platelet mean volume Familia-Ec ker (Bld) [Entitic vol]Ordered By: Hunter Melendrez on 12-26-2023 Platelet mean volume (Bld) [Entitic vol] 8.7 fL 6.2-12.0 [facility] RBC Auto (Bld) [#/Vol]Ordere d By: Hunter Melendrez on 12-26-2023 RBC (Bld) [#/Vol] 4.82 10*6/uL 4.6-6.2 [facility] Serum or plasma calcium mayte urement (mass/volume)Ordered By: Hunter Melendrez on 12-26-2023 Calcium [Mass/Vol] 9.2 mg/dL 8.5-10.1 [facility] Serum or plasma creatinine m easurement (mass/volume)Ordered By: Hunter Melendrez on 12-26-2023 Creatinine [Mass/Vol] 1.07 mg/dL 0.70-1.30 [facility] Comment on above: The validity of the calculated GFR & GFRAA in patients over 70 years has not been determined. Clinical correlation is essential. Serum or plasma urea nitroge n measurement (mass/volume)Ordered By: Hunter Melendrez on 12-26-2023 Urea nitrogen [Mass/Vol] 16 mg/dL 7-18 [facility] Thin prep Papanicolaou smear with manual screeningOrdered By: Hunter Melendrez on 12-26-2023 Thin prep Papanicolaou smear with manual screening 3 5-15 [facility] Absolute lymphocyte countOrd ered By: Bobby Alarcon on 09-24-2023 Lymphocytes Auto (Unsp spec) [#/Vol] 2.42 10*3/uL 0.83-4.51 [facility] Basophil percentageOrdered B y: Bobby Alarcon on 09-24-2023 Basophils/100 WBC (Bld) 0.8 % 0-1 [facility] Bilirubin [Mass/Vol] 0.50 mg/dL 0.20-1.00 [facility] Comment on above: For patients on eltr ombopag therapy, use of Dimension [place] TBIL is not recommended. Chloride [Moles/Vol] 106 mmol/L 98-107 [facility] Eosinophils/100 WBC (Bld) 1.2 % 0-5 [facility] Glucose [Mass/Vol] 109 mg/dL 74-106 [facility] Comment on above: Fasting Glucose resu lt from 100 to 125 mg/dL suggests IMPAIRED HOMEOSTASIS per A.D.A. criteria. Neutrophils (Bld) [#/Vol] 4.0 10*3/uL 2.0-7.7 [facility] Neutrophils/100 WBC (Bld) 54.1 % 47-70 [facility] Potassium [Moles/Vol] 3.8 mmol/L 3.5-5.1 [facility] Protein [Mass/Vol] 7.1 g/dL 6.4-8.2 [facility] Sodium [Moles/Vol] 138 mmol/L 136-145 [facility] WBC (Bld) [#/Vol] 7.4 10*3/uL 4.4-11.0 [facility] Blood erythrocytes count (nu mber/volume)Ordered By: Bobby Alarcon on 09-24-2023 RBC (Bld) [#/Vol] 4.44 10*6/uL 4.6-6.2 [facility] Blood hemoglobin measurement (mass/volume)Ordered By: Bobby Alarcon on 09-24-2023 Hemoglobin (Bld) [Mass/Vol] 14.0 g/dL 13.0-16.5 [facility] Blood lymphocytes/100 leukoc ytesOrdered By: Bobby Alarcon on 09-24-2023 Lymphocytes/100 WBC (Bld) 32.7 % 19-41 [facility] Blood monocytes/100 leukocyt esOrdered By: Bobby Alarcon on 09-24-2023 Monocytes/100 WBC (Bld) 10.9 % 0-10 [facility] Blood platelet mean volumeOr dered By: Bobby Alarcon on 09-24-2023 Platelet mean volume (Bld) [Entitic vol] 8.7 fL 6.2-12.0 [facility] Determination of erythrocyte mean corpuscular volume (MCV)Ordered By: Bobby Alarcon on 09-24-2023 MCV (RBC) [Entitic vol] 91.2 fL 80-94 [facility] Direct bilirubinOrdered By: Bobby Alarcon on 09-24-2023 Bilirubin.direct [Mass/Vol] 0.14 mg/dL 0.00-0.30 [facility] Hematocrit Auto (Bld) [Volum e fraction]Ordered By: Bobby Alarcon on 09-24-2023 Hematocrit (Bld) [Volume fraction] 40.5 % 40-54 [facility] Laboratory - Chemistry and C hemistry - challengeOrdered By: Bobby Alarcon on 09-24-2023 ALP [Catalytic activity/Vol] 77 U/L 45-117 [facility] ALT [Catalytic activity/Vol] 29 U/L 16-61 [facility] CO2 [Moles/Vol] 28.0 mmol/L 21.0-32.0 [facility] Globulin (S) [Mass/Vol] 3.4 g/dL 2.2-4.2 [facility] Lipase [Catalytic activity/Vol] 48 U/L 13-75 [facility] Comment on above: Please note:LIPASE r evised reference range effective 23. New Lipase methodology. Expected to produce lower values than the previous assay method. NEW Reference Range: 13 - 75 U/L Urea nitrogen/Creatinine [Mass ratio] 11.0 mg/mg 10-20 [facility] Laboratory - Hematology and Cell countsOrdered By: Bobby Alarcon on 09-24-2023 Erythrocyte distribution width (RBC) [Entitic vol] 41.1 fL 35.1-43.9 [facility] Erythrocyte distribution width (RBC) [Ratio] 12.6 % 11.6-14.6 [facility] Immature granulocytes/100 WBC (Bld) 0.300 % 0.0-0.9 [facility] Comment on above: IG% - Immature Granu locytes (promyelocytes, myelocytes and metamyelocytes) > 1% indicates that a LEFT SHIFT is Present. MCH (RBC) [Entitic mass] 31.5 pg 27.0-32.0 [facility] Nucleated RBC/100 WBC (Bld) [Ratio] 0 % 0-5 [facility] MCHC Auto (RBC) [Mass/Vol]Or dered By: Bobby Alarcon on 09-24-2023 MCHC (RBC) [Mass/Vol] 34.6 g/dL 32-36 [facility] No Panel InformationOrdered By: Bobby Alarcon on 09-24-2023 Estimated Creatinine Clearance Calc 62.34 ml/min [facility] Estimated GFR (MDRD) Amer 87 mL/min >60 [facility] Comment on above: GFR Calc Estimated GFR (MDRD) Non-Af Amer 72 mL/min >60 [facility] Comment on above: Non- GFR Calc Platelets bldOrdered By: Joe Alarcon on 09-24-2023 Platelets (Bld) [#/Vol] 265 10*3/uL 150-450 [facility] Serum or plasma albumin mayte urement (mass/volume)Ordered By: Bobby Alarcon on 09-24-2023 Albumin [Mass/Vol] 3.7 g/dL 3.2-5.0 [facility] Serum or plasma calcium mayte urement (mass/volume)Ordered By: Bobby Alarcon on 09-24-2023 Calcium [Mass/Vol] 8.5 mg/dL 8.5-10.1 [facility] Serum or plasma creatinine m easurement (mass/volume)Ordered By: oBbby Alarcon on 09-24-2023 Creatinine [Mass/Vol] 1.18 mg/dL 0.70-1.30 [facility] Comment on above: The validity of the calculated GFR & GFRAA in patients over 70 years has not been determined. Clinical correlation is essential. Serum or plasma urea nitroge n measurement (mass/volume)Ordered By: Bobby Alarcon on 09-24-2023 Urea nitrogen [Mass/Vol] 13 mg/dL 7-18 [facility] Thin prep Papanicolaou smear with manual screeningOrdered By: Bobby Alarcon on 09-24-2023 Thin prep Papanicolaou smear with manual screening 19 U/L 15-37 [facility] Thin prep Papanicolaou smear with manual screening 4 5-15 [facility] Absolute lymphocyte countOrd ered By: Liz Goodson on 04-06-2023 Lymphocytes Auto (Unsp spec) [#/Vol] 1.89 10*3/uL 0.83-4.51 [facility] Basophil percentageOrdered B y: Liz Goodson on 05-13-2023 Basophils/100 WBC (Bld) 0.8 % 0-1 [facility] Bilirubin [Mass/Vol] 1.10 mg/dL 0.20-1.00 [facility] Comment on above: For patients on eltr ombopag therapy, use of Dimension [place] TBIL is not recommended. Chloride [Moles/Vol] 108 mmol/L 98-107 [facility] Eosinophils/100 WBC (Bld) 2.1 % 0-5 [facility] Glucose [Mass/Vol] 112 mg/dL 74-106 [facility] Comment on above: Fasting Glucose resu lt from 100 to 125 mg/dL suggests IMPAIRED HOMEOSTASIS per A.D.A. criteria. Neutrophils (Bld) [#/Vol] 2.6 10*3/uL 2.0-7.7 [facility] Neutrophils/100 WBC (Bld) 49.0 % 47-70 [facility] Potassium [Moles/Vol] 3.5 mmol/L 3.5-5.1 [facility] Protein [Mass/Vol] 6.9 g/dL 6.4-8.2 [facility] Sodium [Moles/Vol] 141 mmol/L 136-145 [facility] WBC (Bld) [#/Vol] 5.3 10*3/uL 4.4-11.0 [facility] Blood erythrocytes count (nu mber/volume)Ordered By: Liz Goodson on 04-06-2023 RBC (Bld) [#/Vol] 4.41 10*6/uL 4.6-6.2 [facility] Blood hemoglobin measurement (mass/volume)Ordered By: Liz Goodson on 04-06-2023 Hemoglobin (Bld) [Mass/Vol] 13.9 g/dL 13.0-16.5 [facility] Blood lymphocytes/100 leukoc ytesOrdered By: Liz Goodson on 04-06-2023 Lymphocytes/100 WBC (Bld) 35.9 % 19-41 [facility] Blood monocytes/100 leukocyt esOrdered By: Liz Goodson on 04-06-2023 Monocytes/100 WBC (Bld) 12.0 % 0-10 [facility] Blood platelet mean volumeOr dered By: Liz Goodson on 04-06-2023 Platelet mean volume (Bld) [Entitic vol] 9.0 fL 6.2-12.0 [facility] Determination of erythrocyte mean corpuscular volume (MCV)Ordered By: Liz Goodson on 04-06-2023 MCV (RBC) [Entitic vol] 94.6 fL 80-94 [facility] Hematocrit Auto (Bld) [Volum e fraction]Ordered By: Liz Goodson on 04-06-2023 Hematocrit (Bld) [Volume fraction] 41.7 % 40-54 [facility] Laboratory - Chemistry and C hemistry - challengeOrdered By: Liz Goodson on 04-06-2023 ALP [Catalytic activity/Vol] 84 U/L 45-117 [facility] ALT [Catalytic activity/Vol] 28 U/L 16-61 [facility] CO2 [Moles/Vol] 27.0 mmol/L 21.0-32.0 [facility] Globulin (S) [Mass/Vol] 3.3 g/dL 2.2-4.2 [facility] Urea nitrogen/Creatinine [Mass ratio] 17.9 mg/mg 10-20 [facility] Laboratory - Hematology and Cell countsOrdered By: Liz Goodson on 04-06-2023 Erythrocyte distribution width (RBC) [Entitic vol] 42.5 fL 35.1-43.9 [facility] Erythrocyte distribution width (RBC) [Ratio] 12.2 % 11.6-14.6 [facility] Immature granulocytes/100 WBC (Bld) 0.200 % 0.0-0.9 [facility] Comment on above: IG% - Immature Granu locytes (promyelocytes, myelocytes and metamyelocytes) > 1% indicates that a LEFT SHIFT is Present. MCH (RBC) [Entitic mass] 31.5 pg 27.0-32.0 [facility] Nucleated RBC/100 WBC (Bld) [Ratio] 0 % 0-5 [facility] MCHC Auto (RBC) [Mass/Vol]Or dered By: Liz Goodson on 04-06-2023 MCHC (RBC) [Mass/Vol] 33.3 g/dL 32-36 [facility] No Panel InformationOrdered By: Liz Goodson on 04-06-2023 Estimated Creatinine Clearance Calc 78.23 ml/min [facility] Estimated GFR (MDRD) Amer 111 mL/min >60 [facility] Comment on above: GFR Calc Estimated GFR (MDRD) Non-Af Amer 92 mL/min >60 [facility] Comment on above: Non- GFR Calc Platelets bldOrdered By: Brad Goodson on 04-06-2023 Platelets (Bld) [#/Vol] 281 10*3/uL 150-450 [facility] Serum or plasma albumin mayte urement (mass/volume)Ordered By: Liz Goodson on 04-06-2023 Albumin [Mass/Vol] 3.6 g/dL 3.2-5.0 [facility] Serum or plasma albumin/glob ulin mass ratioOrdered By: Liz Goodson on 04-06-2023 Albumin/Globulin [Mass ratio] 1.1 {ratio} 0.9-2.4 [facility] Serum or plasma calcium mayte urement (mass/volume)Ordered By: Liz Goodson on 04-06-2023 Calcium [Mass/Vol] 8.5 mg/dL 8.5-10.1 [facility] Serum or plasma creatinine m easurement (mass/volume)Ordered By: Liz Goodson on 04-06-2023 Creatinine [Mass/Vol] 0.95 mg/dL 0.70-1.30 [facility] Comment on above: The validity of the calculated GFR & GFRAA in patients over 70 years has not been determined. Clinical correlation is essential. Serum or plasma urea nitroge n measurement (mass/volume)Ordered By: Liz Goodson on 04-06-2023 Urea nitrogen [Mass/Vol] 17 mg/dL 7-18 [facility] Thin prep Papanicolaou smear with manual screeningOrdered By: Liz Goodson on 04-06-2023 Thin prep Papanicolaou smear with manual screening 19 U/L 15-37 [facility] Thin prep Papanicolaou smear with manual screening 6 5-15 [facility] Absolute lymphocyte counton 11-14-2022 Lymphocytes Auto (Unsp spec) [#/Vol] 1.95 10*3/uL 0.83-4.51 [facility] Work Phone: Basophil percentageon 2021 Basophils/100 WBC (Bld) 0.6 % 0-1 [facility] Work Phone: Chloride [Moles/Vol] 107 mmol/L 98-107 [facility] Work Phone: Eosinophils/100 WBC (Bld) 0.4 % 0-5 [facility] Work Phone: Glucose [Mass/Vol] 111 mg/dL 74-106 [facility] Work Phone: Comment on above: Fasting Glucose resu lt from 100 to 125 mg/dL suggests IMPAIRED HOMEOSTASIS per A.D.A. criteria. Neutrophils (Bld) [#/Vol] 5.1 10*3/uL 2.0-7.7 [facility] Work Phone: Neutrophils/100 WBC (Bld) 64.8 % 47-70 [facility] Work Phone: Potassium [Moles/Vol] 3.5 mmol/L 3.5-5.1 [facility] Work Phone: Sodium [Moles/Vol] 138 mmol/L 136-145 [facility] Work Phone: WBC (Bld) [#/Vol] 7.9 10*3/uL 4.4-11.0 [facility] Work Phone: Blood erythrocytes count (nu mber/volume)on 11-14-2022 RBC (Bld) [#/Vol] 4.28 10*6/uL 4.6-6.2 [facility] Work Phone: Blood hemoglobin measurement (mass/volume)on 11-14-2022 Hemoglobin (Bld) [Mass/Vol] 13.6 g/dL 13.0-16.5 [facility] Work Phone: Blood lymphocytes/100 leukoc yteson 11-14-2022 Lymphocytes/100 WBC (Bld) 24.7 % 19-41 [facility] Work Phone: Blood monocytes/100 leukocyt eson 11-14-2022 Monocytes/100 WBC (Bld) 9.1 % 0-10 [facility] Work Phone: [phone] Blood platelet mean volumeon 11-14-2022 Platelet mean volume (Bld) [Entitic vol] 9.0 fL 6.2-12.0 [facility] Work Phone: Determination of erythrocyte mean corpuscular volume (MCV)on 11-14-2022 MCV (RBC) [Entitic vol] 93.7 fL 80-94 [facility] Work Phone: Hematocrit Auto (Bld) [Volum e fraction]on 11-14-2022 Hematocrit (Bld) [Volume fraction] 40.1 % 40-54 [facility] Work Phone: Laboratory - Chemistry and C hemistry - challengeon 11-14-2022 CO2 [Moles/Vol] 24.0 mmol/L 21.0-32.0 [facility] Work Phone: Urea nitrogen/Creatinine [Mass ratio] 13.1 mg/mg 10-20 [facility] Work Phone: Laboratory - Hematology and Cell countson 11-14-2022 Erythrocyte distribution width (RBC) [Entitic vol] 42.7 fL 35.1-43.9 [facility] Work Phone: [phone] Erythrocyte distribution width (RBC) [Ratio] 12.4 % 11.6-14.6 [facility] Work Phone: [phone] Immature granulocytes/100 WBC (Bld) 0.400 % 0.0-0.9 [facility] Work Phone: Comment on above: IG% - Immature Granu locytes (promyelocytes, myelocytes and metamyelocytes) > 1% indicates that a LEFT SHIFT is Present. MCH (RBC) [Entitic mass] 31.8 pg 27.0-32.0 [facility] Work Phone: Nucleated RBC/100 WBC (Bld) [Ratio] 0 % 0-5 [facility] Work Phone: MCHC Auto (RBC) [Mass/Vol]on 11-14-2022 MCHC (RBC) [Mass/Vol] 33.9 g/dL 32-36 [facility] Work Phone: No Panel Informationon 11-14 Estimated Creatinine Clearance Calc 74.32 ml/min [facility] Work Phone: Estimated GFR (MDRD) Amer 106 mL/min >60 [facility] Work Phone: Comment on above: GFR Calc Estimated GFR (MDRD) Non-Af Amer 87 mL/min >60 [facility] Work Phone: [phone] Comment on above: Non- GFR Calc Platelets bldon 11-14-2022 Platelets (Bld) [#/Vol] 290 10*3/uL 150-450 [facility] Work Phone: [phone] Serum or plasma calcium myate urement (mass/volume)on 11-14-2022 Calcium [Mass/Vol] 8.7 mg/dL 8.5-10.1 [facility] Work Phone: [phone] Serum or plasma creatinine m easurement (mass/volume)on 11-14-2022 Creatinine [Mass/Vol] 1.00 mg/dL 0.70-1.30 [facility] Work Phone: Comment on above: The validity of the calculated GFR & GFRAA in patients over 70 years has not been determined. Clinical correlation is essential. Serum or plasma urea nitroge n measurement (mass/volume)on 11-14-2022 Urea nitrogen [Mass/Vol] 13 mg/dL 7-18 [facility] Work Phone: [phone] Thin prep Papanicolaou smear with manual screeningon 11-14-2022 Thin prep Papanicolaou smear with manual screening 7 5-15 [facility] Work Phone: [phone] Absolute lymphocyte counton 08-15-2022 Lymphocytes Auto (Unsp spec) [#/Vol] 2.11 10*3/uL 0.83-4.51 [facility] Work Phone: Basophil percentageon 2021 Basophils/100 WBC (Bld) 0.8 % 0-1 [facility] Work Phone: Chloride [Moles/Vol] 101 mmol/L 98-107 [facility] Work Phone: Eosinophils/100 WBC (Bld) 1.7 % 0-5 [facility] Work Phone: Glucose [Mass/Vol] 105 mg/dL 74-106 [facility] Work Phone: Comment on above: Fasting Glucose resu lt from 100 to 125 mg/dL suggests IMPAIRED HOMEOSTASIS per A.D.A. criteria. Neutrophils (Bld) [#/Vol] 3.2 10*3/uL 2.0-7.7 [facility] Work Phone: Neutrophils/100 WBC (Bld) 50.7 % 47-70 [facility] Work Phone: Potassium [Moles/Vol] 3.7 mmol/L 3.5-5.1 [facility] Work Phone: Sodium [Moles/Vol] 137 mmol/L 136-145 [facility] Work Phone: WBC (Bld) [#/Vol] 6.3 10*3/uL 4.4-11.0 [facility] Work Phone: Blood erythrocytes count (nu mber/volume)on 08-15-2022 RBC (Bld) [#/Vol] 4.55 10*6/uL 4.6-6.2 [facility] Work Phone: Blood hemoglobin measurement (mass/volume)on 08-15-2022 Hemoglobin (Bld) [Mass/Vol] 14.4 g/dL 13.0-16.5 [facility] Work Phone: Blood lymphocytes/100 leukoc yteson 08-15-2022 Lymphocytes/100 WBC (Bld) 33.4 % 19-41 [facility] Work Phone: Blood monocytes/100 leukocyt eson 08-15-2022 Monocytes/100 WBC (Bld) 13.1 % 0-10 [facility] Work Phone: Blood platelet mean volumeon 08-15-2022 Platelet mean volume (Bld) [Entitic vol] 9.0 fL 6.2-12.0 [facility] Work Phone: [phone] Determination of erythrocyte mean corpuscular volume (MCV)on 08-15-2022 MCV (RBC) [Entitic vol] 93.6 fL 80-94 [facility] Work Phone: [phone] Hematocrit Auto (Bld) [Volum e fraction]on 08-15-2022 Hematocrit (Bld) [Volume fraction] 42.6 % 40-54 [facility] Work Phone: [phone] Laboratory - Chemistry and C hemistry - challengeon 08-15-2022 CO2 [Moles/Vol] 28.0 mmol/L 21.0-32.0 [facility] Work Phone: [phone] Urea nitrogen/Creatinine [Mass ratio] 7.1 mg/mg 10-20 [facility] Work Phone: [phone] Laboratory - Hematology and Cell countson 08-15-2022 Erythrocyte distribution width (RBC) [Entitic vol] 43.7 fL 35.1-43.9 [facility] Work Phone: [phone] Erythrocyte distribution width (RBC) [Ratio] 12.6 % 11.6-14.6 [facility] Work Phone: [phone] Immature granulocytes/100 WBC (Bld) 0.300 % 0.0-0.9 [facility] Work Phone: [phone] Comment on above: IG% - Immature Granu locytes (promyelocytes, myelocytes and metamyelocytes) > 1% indicates that a LEFT SHIFT is Present. MCH (RBC) [Entitic mass] 31.6 pg 27.0-32.0 [facility] Work Phone: Nucleated RBC/100 WBC (Bld) [Ratio] 0 % 0-5 [facility] Work Phone: [phone] MCHC Auto (RBC) [Mass/Vol]on 08-15-2022 MCHC (RBC) [Mass/Vol] 33.8 g/dL 32-36 [facility] Work Phone: No Panel Informationon 08-15 Estimated Creatinine Clearance Calc 66.35 ml/min [facility] Work Phone: Estimated GFR (MDRD) Amer 92 mL/min >60 [facility] Work Phone: Comment on above: GFR Calc Estimated GFR (MDRD) Non-Af Amer 76 mL/min >60 [facility] Work Phone: Comment on above: Non- GFR Calc Troponin I High Sensitivity 4 pg/mL 3.0-78.0 [facility] Work Phone: Comment on above: Please Note: New [place] Units and Gender Specific Reference Ranges. For more information see Policy Stat Procedure [place] High Sensitivity Troponin (TNIH) and attachments. Platelets bldon 08-15-2022 Platelets (Bld) [#/Vol] 301 10*3/uL 150-450 [facility] Work Phone: Serum or plasma calcium mayte urement (mass/volume)on 08-15-2022 Calcium [Mass/Vol] 9.1 mg/dL 8.5-10.1 [facility] Work Phone: Serum or plasma creatinine m easurement (mass/volume)on 08-15-2022 Creatinine [Mass/Vol] 1.12 mg/dL 0.70-1.30 [facility] Work Phone: Comment on above: The validity of the calculated GFR & GFRAA in patients over 70 years has not been determined. Clinical correlation is essential. Serum or plasma urea nitroge n measurement (mass/volume)on 08-15-2022 Urea nitrogen [Mass/Vol] 8 mg/dL 7-18 [facility] Work Phone: Thin prep Papanicolaou smear with manual screeningon 08-15-2022 Thin prep Papanicolaou smear with manual screening 8 5-15 [facility] Work Phone: Absolute lymphocyte counton 06-29-2022 Lymphocytes Auto (Unsp spec) [#/Vol] 2.07 10*3/uL 0.83-4.51 [facility] Work Phone: Basophil percentageon 2021 Basophil percentage 0 SEEN /hpf 0-5 [facility] Work Phone: Basophils/100 WBC (Bld) 0.7 % 0-1 [facility] Work Phone: Chloride [Moles/Vol] 105 mmol/L 98-107 [facility] Work Phone: Eosinophils/100 WBC (Bld) 0.7 % 0-5 [facility] Work Phone: Glucose [Mass/Vol] 105 mg/dL 74-106 [facility] Work Phone: Comment on above: Fasting Glucose resu lt from 100 to 125 mg/dL suggests IMPAIRED HOMEOSTASIS per A.D.A. criteria. Neutrophils (Bld) [#/Vol] 4.0 10*3/uL 2.0-7.7 [facility] Work Phone: Neutrophils/100 WBC (Bld) 57.9 % 47-70 [facility] Work Phone: Potassium [Moles/Vol] 4.0 mmol/L 3.5-5.1 [facility] Work Phone: Sodium [Moles/Vol] 135 mmol/L 136-145 [facility] Work Phone: WBC (Bld) [#/Vol] 6.9 10*3/uL 4.4-11.0 [facility] Work Phone: Bilirubin Test strip Ql (U)o n 06-29-2022 Bilirubin Ql (U) Negative Negative [facility] Work Phone: Blood erythrocytes count (nu mber/volume)on 06-29-2022 RBC (Bld) [#/Vol] 4.21 10*6/uL 4.6-6.2 [facility] Work Phone: [phone] Blood hemoglobin measurement (mass/volume)on 06-29-2022 Hemoglobin (Bld) [Mass/Vol] 13.7 g/dL 13.0-16.5 [facility] Work Phone: [phone] Blood lymphocytes/100 leukoc yteson 06-29-2022 Lymphocytes/100 WBC (Bld) 30.1 % 19-41 [facility] Work Phone: [phone] Blood monocytes/100 leukocyt eson 06-29-2022 Monocytes/100 WBC (Bld) 10.2 % 0-10 [facility] Work Phone: [phone] Blood platelet mean volumeon 06-29-2022 Platelet mean volume (Bld) [Entitic vol] 9.2 fL 6.2-12.0 [facility] Work Phone: [phone] Determination of erythrocyte mean corpuscular volume (MCV)on 06-29-2022 MCV (RBC) [Entitic vol] 94.1 fL 80-94 [facility] Work Phone: [phone] Hematocrit Auto (Bld) [Volum e fraction]on 06-29-2022 Hematocrit (Bld) [Volume fraction] 39.6 % 40-54 [facility] Work Phone: [phone] Ketones Test strip Ql (U)on 06-29-2022 Ketones Ql (U) Negative Negative [facility] Work Phone: [phone] Laboratory - Chemistry and C hemistry - challengeon 06-29-2022 CO2 [Moles/Vol] 24.0 mmol/L 21.0-32.0 [facility] Work Phone: [phone] Urea nitrogen/Creatinine [Mass ratio] 15.0 mg/mg 10-20 [facility] Work Phone: [phone] Laboratory - Hematology and Cell countson 06-29-2022 Erythrocyte distribution width (RBC) [Entitic vol] 43.7 fL 35.1-43.9 [facility] Work Phone: [phone] Erythrocyte distribution width (RBC) [Ratio] 12.8 % 11.6-14.6 [facility] Work Phone: [phone] Immature granulocytes/100 WBC (Bld) 0.400 % 0.0-0.9 [facility] Work Phone: [phone] Comment on above: IG% - Immature Granu locytes (promyelocytes, myelocytes and metamyelocytes) > 1% indicates that a LEFT SHIFT is Present. MCH (RBC) [Entitic mass] 32.5 pg 27.0-32.0 [facility] Work Phone: [phone] Nucleated RBC/100 WBC (Bld) [Ratio] 0 % 0-5 [facility] Work Phone: [phone] MCHC Auto (RBC) [Mass/Vol]on 06-29-2022 MCHC (RBC) [Mass/Vol] 34.6 g/dL 32-36 [facility] Work Phone: [phone] Mucus LM Ql (Urine sed)on Mucus Ql (Urine sed) 0 SEEN /hpf [facility] Work Phone: [phone] Nitrite Test strip Ql (U)on 06-29-2022 Nitrite Ql (U) Negative Negative [facility] Work Phone: [phone] Panel Informationon 06-29 Estimated Creatinine Clearance Calc 75.08 ml/min [facility] Work Phone: [phone] Estimated GFR (MDRD) Amer 105 mL/min >60 [facility] Work Phone: [phone] Comment on above: GFR Calc Estimated GFR (MDRD) Non-Af Amer 87 mL/min >60 [facility] Work Phone: [phone] Comment on above: Non- GFR Calc Troponin I High Sensitivity 4 pg/mL 3.0-78.0 [facility] Work Phone: [phone] Comment on above: Please Note: New [place] Units and Gender Specific Reference Ranges. For more information see Policy Stat Procedure [place] High Sensitivity Troponin (TNIH) and attachments. Platelets bldon 06-29-2022 Platelets (Bld) [#/Vol] 326 10*3/uL 150-450 [facility] Work Phone: Protein Test strip Ql (U)on 06-29-2022 Protein Ql (U) Negative Negative [facility] Work Phone: Serum or plasma calcium mayte urement (mass/volume)on 06-29-2022 Calcium [Mass/Vol] 9.0 mg/dL 8.5-10.1 [facility] Work Phone: Serum or plasma creatinine m easurement (mass/volume)on 06-29-2022 Creatinine [Mass/Vol] 1.00 mg/dL 0.70-1.30 [facility] Work Phone: Comment on above: The validity of the calculated GFR & GFRAA in patients over 70 years has not been determined. Clinical correlation is essential. Serum or plasma urea nitroge n measurement (mass/volume)on 06-29-2022 Urea nitrogen [Mass/Vol] 15 mg/dL 7-18 [facility] Work Phone: [phone] Squamous epithelial cells de tection in urine sediment by light microscopyon 06-29-2022 Epithelial cells.squamous LM Ql (Urine sed) 0 SEEN /hpf 0-5 [facility] Work Phone: Thin prep Papanicolaou smear with manual screeningon 06-29-2022 Thin prep Papanicolaou smear with manual screening 6 5-15 [facility] Work Phone: Urine blood detectionon RBC Ql (U) Negative Negative [facility] Work Phone: [phone] RBC Ql (U) 0 SEEN /hpf 0-5 [facility] Work Phone: [phone] Urine clarityon 06-29-2022 Clarity (U) Clear Clear [facility] Work Phone: Urine color determinationon 06-29-2022 Color (U) Straw Yellow [facility] Work Phone: [phone] Urine glucose detectionon Glucose Ql (U) Normal mg/dl Normal [facility] Work Phone: [phone] Urine leukocyte esterase det ection by dipstickon 06-29-2022 Leukocyte esterase Test strip Ql (U) Negative Negative [facility] Work Phone: Urine pHon 06-29-2022 pH (U) 7.0 [pH] 5.0 - 8.0 [facility] Work Phone: Urine sediment bacteria coun t by microscopy (number/high power field)on 06-29-2022 Bacteria LM.HPF (Urine sed) [#/Area] 0 /[HPF] None Seen [facility] Work Phone: Urine specific gravity measu rementon 06-29-2022 Specific gravity (U) [Rel density] 1.010 1.002-1.030 [facility] Work Phone: Urobilinogen Auto test strip Ql (U)on 06-29-2022 Urobilinogen Ql (U) Normal mg/dl Normal [facility] Work Phone: Absolute lymphocyte counton 04-28-2022 Lymphocytes Auto (Unsp spec) [#/Vol] 3.67 10*3/uL 0.83-4.51 [facility] Work Phone: Basophil percentageon 2021 Basophils/100 WBC (Bld) 0.7 % 0-1 [facility] Work Phone: Chloride [Moles/Vol] 101 mmol/L 98-107 [facility] Work Phone: Eosinophils/100 WBC (Bld) 1.9 % 0-5 [facility] Work Phone: Glucose [Mass/Vol] 112 mg/dL 74-106 [facility] Work Phone: Comment on above: Fasting Glucose resu lt from 100 to 125 mg/dL suggests IMPAIRED HOMEOSTASIS per A.D.A. criteria. Neutrophils (Bld) [#/Vol] 3.3 10*3/uL 2.0-7.7 [facility] Work Phone: Neutrophils/100 WBC (Bld) 39.2 % 47-70 [facility] Work Phone: Potassium [Moles/Vol] 3.6 mmol/L 3.5-5.1 [facility] Work Phone: Sodium [Moles/Vol] 135 mmol/L 136-145 [facility] Work Phone: [phone] WBC (Bld) [#/Vol] 8.3 10*3/uL 4.4-11.0 [facility] Work Phone: Blood erythrocytes count (nu mber/volume)on 04-28-2022 RBC (Bld) [#/Vol] 4.74 10*6/uL 4.6-6.2 [facility] Work Phone: Blood hemoglobin measurement (mass/volume)on 04-28-2022 Hemoglobin (Bld) [Mass/Vol] 15.0 g/dL 13.0-16.5 [facility] Work Phone: Blood lymphocytes/100 leukoc yteson 04-28-2022 Lymphocytes/100 WBC (Bld) 44.1 % 19-41 [facility] Work Phone: Blood monocytes/100 leukocyt eson 04-28-2022 Monocytes/100 WBC (Bld) 14.0 % 0-10 [facility] Work Phone: Blood platelet mean volumeon 04-28-2022 Platelet mean volume (Bld) [Entitic vol] 8.7 fL 6.2-12.0 [facility] Work Phone: Determination of erythrocyte mean corpuscular volume (MCV)on 04-28-2022 MCV (RBC) [Entitic vol] 93.5 fL 80-94 [facility] Work Phone: Hematocrit Auto (Bld) [Volum e fraction]on 04-28-2022 Hematocrit (Bld) [Volume fraction] 44.3 % 40-54 [facility] Work Phone: Laboratory - Chemistry and C hemistry - challengeon 04-28-2022 CO2 [Moles/Vol] 28.0 mmol/L 21.0-32.0 [facility] Work Phone: Urea nitrogen/Creatinine [Mass ratio] 13.0 mg/mg 10-20 [facility] Work Phone: [phone] Laboratory - Hematology and Cell countson 04-28-2022 Erythrocyte distribution width (RBC) [Entitic vol] 41.6 fL 35.1-43.9 [facility] Work Phone: [phone] Erythrocyte distribution width (RBC) [Ratio] 12.0 % 11.6-14.6 [facility] Work Phone: [phone] Immature granulocytes/100 WBC (Bld) 0.100 % 0.0-0.9 [facility] Work Phone: [phone] Comment on above: IG% - Immature Granu locytes (promyelocytes, myelocytes and metamyelocytes) > 1% indicates that a LEFT SHIFT is Present. MCH (RBC) [Entitic mass] 31.6 pg 27.0-32.0 [facility] Work Phone: [phone] Nucleated RBC/100 WBC (Bld) [Ratio] 0 % 0-5 [facility] Work Phone: [phone] MCHC Auto (RBC) [Mass/Vol]on 04-28-2022 MCHC (RBC) [Mass/Vol] 33.9 g/dL 32-36 [facility] Work Phone: No Panel Informationon 04-28 Estimated Creatinine Clearance Calc 69.51 ml/min [facility] Work Phone: [phone] Estimated GFR (MDRD) Amer 97 mL/min >60 [facility] Work Phone: [phone] Comment on above: GFR Calc Estimated GFR (MDRD) Non-Af Amer 80 mL/min >60 [facility] Work Phone: [phone] Comment on above: Non- GFR Calc Troponin I High Sensitivity 3 pg/mL 3.0-78.0 [facility] Work Phone: Comment on above: Please Note: New Elodia t Units and Gender Specific Reference Ranges. For more information see Policy Stat Procedure [place] High Sensitivity Troponin (TNIH) and attachments. Platelets bldon 04-28-2022 Platelets (Bld) [#/Vol] 349 10*3/uL 150-450 [facility] Work Phone: Serum or plasma calcium mayte urement (mass/volume)on 04-28-2022 Calcium [Mass/Vol] 9.0 mg/dL 8.5-10.1 [facility] Work Phone: Serum or plasma creatinine m easurement (mass/volume)on 04-28-2022 Creatinine [Mass/Vol] 1.08 mg/dL 0.70-1.30 [facility] Work Phone: Comment on above: The validity of the calculated GFR & GFRAA in patients over 70 years has not been determined. Clinical correlation is essential. Serum or plasma urea nitroge n measurement (mass/volume)on 04-28-2022 Urea nitrogen [Mass/Vol] 14 mg/dL 7-18 [facility] Work Phone: Thin prep Papanicolaou smear with manual screeningon 04-28-2022 Thin prep Papanicolaou smear with manual screening 6 5-15 [facility] Work Phone: Basophil percentageon 2021 Basophil percentage 0 SEEN /hpf 0-5 [facility] Work Phone: Bilirubin Test strip Ql (U)o n 02-16-2022 Bilirubin Ql (U) Negative Negative [facility] Work Phone: Ketones Test strip Ql (U)on 02-16-2022 Ketones Ql (U) Negative Negative [facility] Work Phone: Mucus LM Ql (Urine sed)on Mucus Ql (Urine sed) 0 SEEN /hpf [facility] Work Phone: Nitrite Test strip Ql (U)on 02-16-2022 Nitrite Ql (U) Negative Negative [facility] Work Phone: Protein Test strip Ql (U)on 02-16-2022 Protein Ql (U) Negative Negative [facility] Work Phone: Squamous epithelial cells de tection in urine sediment by light microscopyon 02-16-2022 Epithelial cells.squamous LM Ql (Urine sed) 0 SEEN /hpf 0-5 [facility] Work Phone: Urine blood detectionon 01-24 RBC Ql (U) Negative Negative [facility] Work Phone: RBC Ql (U) 0 SEEN /hpf 0-5 [facility] Work Phone: Urine clarityon 02-16-2022 Clarity (U) Clear Clear [facility] Work Phone: Urine color determinationon 02-16-2022 Color (U) Yellow Yellow [facility] Work Phone: Urine glucose detectionon Glucose Ql (U) Normal mg/dl Normal [facility] Work Phone: Urine leukocyte esterase det ection by dipstickon 02-16-2022 Leukocyte esterase Test strip Ql (U) Negative Negative [facility] Work Phone: Urine pHon 02-16-2022 pH (U) 6.0 [pH] 5.0 - 8.0 [facility] Work Phone: Urine sediment bacteria coun t by microscopy (number/high power field)on 02-16-2022 Bacteria LM.HPF (Urine sed) [#/Area] 0 /[HPF] None Seen [facility] Work Phone: Urine specific gravity measu rementon 02-16-2022 Specific gravity (U) [Rel density] 1.015 1.002-1.030 [facility] Work Phone: Urobilinogen Auto test strip Ql (U)on 02-16-2022 Urobilinogen Ql (U) Normal mg/dl Normal [facility] Work Phone: Absolute lymphocyte counton 02-15-2022 Lymphocytes Auto (Unsp spec) [#/Vol] 1.98 10*3/uL 0.83-4.51 [facility] Work Phone: Basophil percentageon 2021 Basophils/100 WBC (Bld) 0.3 % 0-1 [facility] Work Phone: Chloride [Moles/Vol] 98 mmol/L 98-107 [facility] Work Phone: Eosinophils/100 WBC (Bld) 0.2 % 0-5 [facility] Work Phone: Glucose [Mass/Vol] 122 mg/dL 74-106 [facility] Work Phone: Comment on above: Fasting Glucose resu lt from 100 to 125 mg/dL suggests IMPAIRED HOMEOSTASIS per A.D.A. criteria. Neutrophils (Bld) [#/Vol] 8.7 10*3/uL 2.0-7.7 [facility] Work Phone: Neutrophils/100 WBC (Bld) 69.5 % 47-70 [facility] Work Phone: Potassium [Moles/Vol] 3.9 mmol/L 3.5-5.1 [facility] Work Phone: Sodium [Moles/Vol] 129 mmol/L 136-145 [facility] Work Phone: WBC (Bld) [#/Vol] 12.6 10*3/uL 4.4-11.0 [facility] Work Phone: Blood erythrocytes count (nu mber/volume)on 02-15-2022 RBC (Bld) [#/Vol] 4.37 10*6/uL 4.6-6.2 [facility] Work Phone: Blood hemoglobin measurement (mass/volume)on 02-15-2022 Hemoglobin (Bld) [Mass/Vol] 14.3 g/dL 13.0-16.5 [facility] Work Phone: Blood lymphocytes/100 leukoc yteson 02-15-2022 Lymphocytes/100 WBC (Bld) 15.8 % 19-41 [facility] Work Phone: Blood monocytes/100 leukocyt eson 02-15-2022 Monocytes/100 WBC (Bld) 14.0 % 0-10 [facility] Work Phone: Blood platelet mean volumeon 02-15-2022 Platelet mean volume (Bld) [Entitic vol] 9.0 fL 6.2-12.0 [facility] Work Phone: [phone] Determination of erythrocyte mean corpuscular volume (MCV)on 02-15-2022 MCV (RBC) [Entitic vol] 92.9 fL 80-94 [facility] Work Phone: [phone] Hematocrit Auto (Bld) [Volum e fraction]on 02-15-2022 Hematocrit (Bld) [Volume fraction] 40.6 % 40-54 [facility] Work Phone: [phone] Laboratory - Chemistry and C hemistry - challengeon 02-15-2022 CO2 [Moles/Vol] 23.0 mmol/L 21.0-32.0 [facility] Work Phone: [phone] Urea nitrogen/Creatinine [Mass ratio] 12.8 mg/mg 10-20 [facility] Work Phone: [phone] Laboratory - Hematology and Cell countson 02-15-2022 Erythrocyte distribution width (RBC) [Entitic vol] 40.8 fL 35.1-43.9 [facility] Work Phone: [phone] Erythrocyte distribution width (RBC) [Ratio] 11.9 % 11.6-14.6 [facility] Work Phone: [phone] Immature granulocytes/100 WBC (Bld) 0.200 % 0.0-0.9 [facility] Work Phone: [phone] Comment on above: IG% - Immature Granu locytes (promyelocytes, myelocytes and metamyelocytes) > 1% indicates that a LEFT SHIFT is Present. MCH (RBC) [Entitic mass] 32.7 pg 27.0-32.0 [facility] Work Phone: [phone] Nucleated RBC/100 WBC (Bld) [Ratio] 0 % 0-5 [facility] Work Phone: [phone] MCHC Auto (RBC) [Mass/Vol]on 02-15-2022 MCHC (RBC) [Mass/Vol] 35.2 g/dL 32-36 [facility] Work Phone: No Panel Informationon 02-15 Troponin I High Sensitivity 3 pg/mL 3.0-78.0 [facility] Work Phone: Comment on above: Please Note: New El[place] t Units and Gender Specific Reference Ranges. For more information see Policy Stat Procedure [place] High Sensitivity Troponin (TNIH) and attachments. SARS-CoV-2 & FLU Antigen (Rapid) [facility] Work Phone: D-Dimer Quantitative (PE/DVT) 0.35 FEU/ug/m 0.27-0.49 [facility] Work Phone: Comment on above: NORMAL D-Dimer level (<0.50) indicates no DVT or PE. Estimated Creatinine Clearance Calc 68.88 ml/min [facility] Work Phone: Estimated GFR (MDRD) Amer 96 mL/min >60 [facility] Work Phone: Comment on above: GFR Calc Estimated GFR (MDRD) Non-Af Amer 79 mL/min >60 [facility] Work Phone: Comment on above: Non- GFR Calc Thyroid Stimulating Hormone (TSH) 2.99 uIU/mL 0.358-3.74 [facility] Work Phone: Platelets bldon 02-15-2022 Platelets (Bld) [#/Vol] 254 10*3/uL 150-450 [facility] Work Phone: Review by pathologiston 01-24 Pathologist review Jose (Unsp spec) [Interp] Reviewed [facility] Work Phone: Comment on above: Previous reported re sult: Terrie ratliff Edited by: CALIN on 02/16/22:1146Leukocytosis. Clinical correlation necessary.Arash Carvalho M.D. 02/16/22 AMENDED REPORT 02/16/22 [id number] PATH REV previously reported as: Terrie ratliff Serum or plasma calcium mayte urement (mass/volume)on 02-15-2022 Calcium [Mass/Vol] 8.3 mg/dL 8.5-10.1 [facility] Work Phone: Serum or plasma creatinine m easurement (mass/volume)on 02-15-2022 Creatinine [Mass/Vol] 1.09 mg/dL 0.70-1.30 [facility] Work Phone: Comment on above: The validity of the calculated GFR & GFRAA in patients over 70 years has not been determined. Clinical correlation is essential. Serum or plasma urea nitroge n measurement (mass/volume)on 02-15-2022 Urea nitrogen [Mass/Vol] 14 mg/dL 7-18 [facility] Work Phone: Thin prep Papanicolaou smear with manual screeningon 02-15-2022 Thin prep Papanicolaou smear with manual screening 8 5-15 [facility] Work Phone: Absolute lymphocyte counton 01-27-2022 Lymphocytes Auto (Unsp spec) [#/Vol] 2.02 10*3/uL 0.83-4.51 [facility] Work Phone: Basophil percentageon 2021 Basophils/100 WBC (Bld) 0.6 % 0-1 [facility] Work Phone: Chloride [Moles/Vol] 106 mmol/L 98-107 [facility] Work Phone: Eosinophils/100 WBC (Bld) 0.7 % 0-5 [facility] Work Phone: Glucose [Mass/Vol] 92 mg/dL 74-106 [facility] Work Phone: Neutrophils (Bld) [#/Vol] 5.6 10*3/uL 2.0-7.7 [facility] Work Phone: Neutrophils/100 WBC (Bld) 64.7 % 47-70 [facility] Work Phone: Potassium [Moles/Vol] 3.6 mmol/L 3.5-5.1 [facility] Work Phone: Sodium [Moles/Vol] 138 mmol/L 136-145 [facility] Work Phone: WBC (Bld) [#/Vol] 8.6 10*3/uL 4.4-11.0 [facility] Work Phone: Blood erythrocytes count (nu mber/volume)on 01-27-2022 RBC (Bld) [#/Vol] 4.51 10*6/uL 4.6-6.2 [facility] Work Phone: Blood hemoglobin measurement (mass/volume)on 01-27-2022 Hemoglobin (Bld) [Mass/Vol] 15.1 g/dL 13.0-16.5 [facility] Work Phone: Blood lymphocytes/100 leukoc yteson 01-27-2022 Lymphocytes/100 WBC (Bld) 23.4 % 19-41 [facility] Work Phone: [phone] Blood monocytes/100 leukocyt eson 01-27-2022 Monocytes/100 WBC (Bld) 10.4 % 0-10 [facility] Work Phone: Blood platelet mean volumeon 01-27-2022 Platelet mean volume (Bld) [Entitic vol] 8.6 fL 6.2-12.0 [facility] Work Phone: Determination of erythrocyte mean corpuscular volume (MCV)on 01-27-2022 MCV (RBC) [Entitic vol] 93.3 fL 80-94 [facility] Work Phone: Hematocrit Auto (Bld) [Volum e fraction]on 01-27-2022 Hematocrit (Bld) [Volume fraction] 42.1 % 40-54 [facility] Work Phone: Laboratory - Chemistry and C hemistry - challengeon 01-27-2022 CO2 [Moles/Vol] 28.0 mmol/L 21.0-32.0 [facility] Work Phone: Urea nitrogen/Creatinine [Mass ratio] 8.5 mg/mg 10-20 [facility] Work Phone: [phone] Laboratory - Hematology and Cell countson 01-27-2022 Erythrocyte distribution width (RBC) [Entitic vol] 42.5 fL 35.1-43.9 [facility] Work Phone: [phone] Erythrocyte distribution width (RBC) [Ratio] 12.4 % 11.6-14.6 [facility] Work Phone: [phone] Immature granulocytes/100 WBC (Bld) 0.200 % 0.0-0.9 [facility] Work Phone: [phone] Comment on above: IG% - Immature Granu locytes (promyelocytes, myelocytes and metamyelocytes) > 1% indicates that a LEFT SHIFT is Present. MCH (RBC) [Entitic mass] 33.5 pg 27.0-32.0 [facility] Work Phone: Nucleated RBC/100 WBC (Bld) [Ratio] 0 % 0-5 [facility] Work Phone: [phone] MCHC Auto (RBC) [Mass/Vol]on 01-27-2022 MCHC (RBC) [Mass/Vol] 35.9 g/dL 32-36 [facility] Work Phone: No Panel Informationon 01-27 Estimated Creatinine Clearance Calc 70.83 ml/min [facility] Work Phone: [phone] Estimated GFR (MDRD) Amer 99 mL/min >60 [facility] Work Phone: [phone] Comment on above: GFR Calc Estimated GFR (MDRD) Non-Af Amer 82 mL/min >60 [facility] Work Phone: [phone] Comment on above: Non- GFR Calc Platelets bldon 01-27-2022 Platelets (Bld) [#/Vol] 313 10*3/uL 150-450 [facility] Work Phone: [phone] Serum or plasma calcium mayte urement (mass/volume)on 01-27-2022 Calcium [Mass/Vol] 9.2 mg/dL 8.5-10.1 [facility] Work Phone: [phone] Serum or plasma creatinine m easurement (mass/volume)on 01-27-2022 Creatinine [Mass/Vol] 1.06 mg/dL 0.70-1.30 [facility] Work Phone: Comment on above: The validity of the calculated GFR & GFRAA in patients over 70 years has not been determined. Clinical correlation is essential. Serum or plasma urea nitroge n measurement (mass/volume)on 01-27-2022 Urea nitrogen [Mass/Vol] 9 mg/dL 7-18 [facility] Work Phone: Thin prep Papanicolaou smear with manual screeningon 01-27-2022 Thin prep Papanicolaou smear with manual screening 4 5-15 [facility] Work Phone: Basophil percentageon 2021 Basophil percentage 0 SEEN /hpf [facility] Work Phone: Bilirubin Test strip Ql (U)o n 01-10-2022 Bilirubin Ql (U) Negative Negative [facility] Work Phone: Ketones Test strip Ql (U)on 01-10-2022 Ketones Ql (U) Negative Negative [facility] Work Phone: Mucus LM Ql (Urine sed)on Mucus Ql (Urine sed) 0 SEEN /hpf [facility] Work Phone: Nitrite Test strip Ql (U)on 01-10-2022 Nitrite Ql (U) Negative Negative [facility] Work Phone: Protein Test strip Ql (U)on 01-10-2022 Protein Ql (U) Negative Negative [facility] Work Phone: Squamous epithelial cells de tection in urine sediment by light microscopyon 01-10-2022 Epithelial cells.squamous LM Ql (Urine sed) 0 SEEN /hpf [facility] Work Phone: Urine blood detectionon 12-26 RBC Ql (U) Negative Negative [facility] Work Phone: RBC Ql (U) 0 SEEN /hpf [facility] Work Phone: Urine clarityon 01-10-2022 Clarity (U) Clear Clear [facility] Work Phone: Urine color determinationon 01-10-2022 Color (U) Yellow Yellow [facility] Work Phone: Urine glucose detectionon Glucose Ql (U) Normal mg/dl Normal [facility] Work Phone: Urine leukocyte esterase det ection by dipstickon 01-10-2022 Leukocyte esterase Test strip Ql (U) Negative Negative [facility] Work Phone: Urine pHon 01-10-2022 pH (U) 6.0 [pH] [facility] Work Phone: Urine sediment bacteria coun t by microscopy (number/high power field)on 01-10-2022 Bacteria LM.HPF (Urine sed) [#/Area] 0 /[HPF] None Seen [facility] Work Phone: Urine specific gravity measu rementon 01-10-2022 Specific gravity (U) [Rel density] 1.010 [facility] Work Phone: Urobilinogen Auto test strip Ql (U)on 01-10-2022 Urobilinogen Ql (U) Normal mg/dl Normal [facility] Work Phone: Absolute lymphocyte counton 01-03-2022 Lymphocytes Auto (Unsp spec) [#/Vol] 3.09 10*3/uL 0.83-4.51 [facility] Work Phone: Basophil percentageon 2021 Basophils/100 WBC (Bld) 0.8 % 0-1 [facility] Work Phone: Chloride [Moles/Vol] 104 mmol/L 98-107 [facility]: Eosinophils/100 WBC (Bld) 2.7 % 0-5 [facility] Work Phone: Glucose [Mass/Vol] 115 mg/dL 74-106 [facility] Work Phone: Comment on above: Fasting Glucose resu lt from 100 to 125 mg/dL suggests IMPAIRED HOMEOSTASIS per A.D.A. criteria. Neutrophils (Bld) [#/Vol] 3.9 10*3/uL 2.0-7.7 [facility] Work Phone: Neutrophils/100 WBC (Bld) 46.5 % 47-70 [facility] Work Phone: [phone] Potassium [Moles/Vol] 3.5 mmol/L 3.5-5.1 [facility] Work Phone: [phone] Sodium [Moles/Vol] 137 mmol/L 136-145 [facility] Work Phone: WBC (Bld) [#/Vol] 8.4 10*3/uL 4.4-11.0 [facility] Work Phone: Blood erythrocytes count (nu mber/volume)on 01-03-2022 RBC (Bld) [#/Vol] 4.61 10*6/uL 4.6-6.2 [facility] Work Phone: [phone] Blood hemoglobin measurement (mass/volume)on 01-03-2022 Hemoglobin (Bld) [Mass/Vol] 14.6 g/dL 13.0-16.5 [facility] Work Phone: Blood lymphocytes/100 leukoc yteson 01-03-2022 Lymphocytes/100 WBC (Bld) 36.9 % 19-41 [facility] Work Phone: Blood monocytes/100 leukocyt eson 01-03-2022 Monocytes/100 WBC (Bld) 12.9 % 0-10 [facility] Work Phone: Blood platelet mean volumeon 01-03-2022 Platelet mean volume (Bld) [Entitic vol] 8.8 fL 6.2-12.0 [facility] Work Phone: Determination of erythrocyte mean corpuscular volume (MCV)on 01-03-2022 MCV (RBC) [Entitic vol] 93.7 fL 80-94 [facility] Work Phone: Hematocrit Auto (Bld) [Volum e fraction]on 01-03-2022 Hematocrit (Bld) [Volume fraction] 43.2 % 40-54 [facility] Work Phone: [phone] Laboratory - Chemistry and C hemistry - challengeon 01-03-2022 CO2 [Moles/Vol] 26.0 mmol/L 21.0-32.0 [facility] Work Phone: [phone] Urea nitrogen/Creatinine [Mass ratio] 11.4 mg/mg 10-20 [facility] Work Phone: [phone] Laboratory - Hematology and Cell countson 01-03-2022 Erythrocyte distribution width (RBC) [Entitic vol] 43.9 fL 35.1-43.9 [facility] Work Phone: [phone] Erythrocyte distribution width (RBC) [Ratio] 12.9 % 11.6-14.6 [facility] Work Phone: [phone] Immature granulocytes/100 WBC (Bld) 0.200 % 0.0-0.9 [facility] Work Phone: [phone] Comment on above: IG% - Immature Granu locytes (promyelocytes, myelocytes and metamyelocytes) > 1% indicates that a LEFT SHIFT is Present. MCH (RBC) [Entitic mass] 31.7 pg 27.0-32.0 [facility] Work Phone: [phone] Nucleated RBC/100 WBC (Bld) [Ratio] 0 % 0-5 [facility] Work Phone: [phone] MCHC Auto (RBC) [Mass/Vol]on 01-03-2022 MCHC (RBC) [Mass/Vol] 33.8 g/dL 32-36 [facility] Work Phone: [phone] No Panel Informationon 01-03 Troponin I High Sensitivity 5 pg/mL 3.0-78.0 [facility] Work Phone: [phone] Comment on above: Please Note: New Elodia t Units and Gender Specific Reference Ranges. For more information see Policy Stat Procedure [place] High Sensitivity Troponin (TNIH) and attachments. D-Dimer Quantitative (PE/DVT) <= 0.27 FEU/ug/m 0.27-0.49 [facility] Work Phone: Comment on above: NORMAL D-Dimer level (<0.50) indicates no DVT or PE. Estimated Creatinine Clearance Calc 74.51 ml/min [facility] Work Phone: Estimated GFR (MDRD) Amer 100 mL/min >60 [facility] Work Phone: Comment on above: GFR Calc Estimated GFR (MDRD) Non-Af Amer 83 mL/min >60 [facility] Work Phone: Comment on above: Non- GFR Calc Platelets bldon 01-03-2022 Platelets (Bld) [#/Vol] 348 10*3/uL 150-450 [facility] Work Phone: Serum or plasma calcium mayte urement (mass/volume)on 01-03-2022 Calcium [Mass/Vol] 8.8 mg/dL 8.5-10.1 [facility] Work Phone: Serum or plasma creatinine m easurement (mass/volume)on 01-03-2022 Creatinine [Mass/Vol] 1.05 mg/dL 0.70-1.30 [facility] Work Phone: Comment on above: The validity of the calculated GFR & GFRAA in patients over 70 years has not been determined. Clinical correlation is essential. Serum or plasma urea nitroge n measurement (mass/volume)on 01-03-2022 Urea nitrogen [Mass/Vol] 12 mg/dL 7-18 [facility] Work Phone: Thin prep Papanicolaou smear with manual screeningon 01-03-2022 Thin prep Papanicolaou smear with manual screening 7 5-15 [facility] Work Phone: No Panel Information SARS-CoV-2 & FLU Antigen (Rapid) [facility] Work Phone: Vital Signs Date Time Vital Sign Value Performing Clinician Facility 02-03-2025 13:24-0400 Body mass index (BMI) [Ratio] 36.8 kg/m2 Shahana Vasquez 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.[facility] Work Phone: [facility] 02-03-2025 13:24-0400 Body temperature 98.71 [degF] Shahana Vasquez 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.[employer] Work Phone: [facility] 02-03-2025 13:24-0400 Body weight 94.2 kg Shahana Vasquez 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.[employer] Work Phone: [facility] 02-03-2025 13:24-0400 Diastolic blood pressure 78 mm[Hg] Shahana Vasquez 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.[employer] Work Phone: [facility] 02-03-2025 13:24-0400 Heart rate 113 /min Shahana Vasquez 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.[employer] Work Phone: [facility] 02-03-2025 13:24-0400 Respiratory rate 16 /min Shahana Vasquez 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.[employer] Work Phone: [facility] 02-03-2025 13:24-0400 SaO2% (BldA) [Mass fraction] 99 % Shahana Vasquez 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.[employer] Work Phone: [facility] 02-03-2025 13:24-0400 Systolic blood pressure 122 mm[Hg] Shahana Vasquez 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.[employer] Work Phone: [facility] 02-02-2025 15:00-0400 Heart rate 78 /min Vivien Podlogar [employer] Work Phone: [facility] 02-02-2025 15:00-0400 Respiratory rate 18 /min Vivien Podlogar [employer] Work Phone: [facility] 02-02-2025 15:00-0400 SaO2% (BldA) [Mass fraction] 98 % Vivien Podlogar [employer] Work Phone: [facility] 02-02-2025 13:00-0400 Body height 157.48 cm Vivien Podlogar [employer] Work Phone: [facility] 02-02-2025 13:00-0400 Body mass index (BMI) [Ratio] 37 kg/m2 Vivien Podlogar [employer] Work Phone: [facility] 02-02-2025 13:00-0400 Body temperature 97.5 [degF] Vivien Podlogar [employer] Work Phone: [facility] 02-02-2025 13:00-0400 Body weight 91.76 kg Vivien Podlogar [employer] Work Phone: [facility] 02-02-2025 13:00-0400 Diastolic blood pressure 80 mm[Hg] Vivien Podlogar [employer] Work Phone: [facility] 02-02-2025 13:00-0400 Systolic blood pressure 133 mm[Hg] Vivien Podlogar [employer] Work Phone: [facility] 02-02-2025 08:30-0400 Body mass index (BMI) [Ratio] 35.94 kg/m2 Shahana Vasquez 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.[employer] Work Phone: [facility] 02-02-2025 08:30-0400 Body temperature 97 [degF] Shahana Vasquez 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.[employer] Work Phone: [facility] 02-02-2025 08:30-0400 Body weight 92 kg Shahana Vasquez 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.[employer] Work Phone: [facility] 02-02-2025 08:30-0400 Diastolic blood pressure 84 mm[Hg] Shahana Vasquez 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.[employer] Work Phone: [facility] 02-02-2025 08:30-0400 Heart rate 87 /min Shahana Vasquez 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.[employer] Work Phone: [facility] 02-02-2025 08:30-0400 Respiratory rate 20 /min Shahana Vasquez 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.[employer] Work Phone: [facility] 02-02-2025 08:30-0400 SaO2% (BldA) [Mass fraction] 99 % Shahana Vasquez 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.[employer] Work Phone: [facility] 02-02-2025 08:30-0400 Systolic blood pressure 121 mm[Hg] Shahana Vasquez 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.[employer] Work Phone: [facility] 01-26-2025 09:38-0500 Body temperature 97.9 [degF] Vivien Podlogar [employer]ARDESS[employer] Work Phone: [facility] 01-26-2025 09:38-0500 Diastolic blood pressure 88 mm[Hg] Vivien Podlogar [employer]ARDESS[employer] Work Phone: [facility] 01-26-2025 09:38-0500 Heart rate 90 /min Viiven Podlogar [employer]EWARD/STEWARDESS-C Work Phone: [facility] 01-26-2025 09:38-0500 Respiratory rate 16 /min Vivien Podlogar [employer]RO[employer] D[employer]ING [employer]EWARD/STEWARDESS-C Work Phone: [facility] 01-26-2025 09:38-0500 SaO2% (BldA) [Mass fraction] 100 % Vivien Podlogar [employer]RO[employer] D[employer]ING [employer] STEWARD/STEWARDESS-C Work Phone: [facility] 01-26-2025 09:38-0500 Systolic blood pressure 121 mm[Hg] Vivien Podlogar [employer]RO[employer] D[employer]ING [employer] STEWARD/STEWARDESS-C Work Phone: [facility] 01-26-2025 07:00-0500 Body mass index (BMI) [Ratio] 37.1 kg/m2 Vivien Podlogar [employer]ARD/STEWARDESS-C Work Phone: [facility] 01-26-2025 07:00-0500 Body weight 92.1 kg Vivien Podlogar [employer]RO[employer] D[employer]ARD/STEWARDESS-C Work Phone: [facility] 10-10-2024 22:43-0500 Body temperature 97.9 [degF] Vivien Podlogar [employer]/STEWARDESS-C Work Phone: [facility] 10-10-2024 22:43-0500 Diastolic blood pressure 68 mm[Hg] Vivine Podlogar [employer]RO[employer] D[employer]/STEWARDESS-C Work Phone: [facility] 10-10-2024 22:43-0500 Heart rate 76 /min Vivien Podlogar [employer]/STEWARDESS-C Work Phone: [facility] 10-10-2024 22:43-0500 Respiratory rate 18 /min Vivien Podlogar [employer]ARD/STEWARDESS-C Work Phone: [facility] 10-10-2024 22:43-0500 SaO2% (BldA) [Mass fraction] 98 % Vivien Podlogar [employer]RO[employer] D[employer]ING [employer]ARD/STEWARDESS-C Work Phone: [facility] 10-10-2024 22:43-0500 Systolic blood pressure 113 mm[Hg] Vivien Podlogar [employer]RO[employer] D[employer]/STEWARDESS-C Work Phone: [facility] 10-10-2024 19:20-0500 Body mass index (BMI) [Ratio] 37.7 kg/m2 Vivien Podlogar [employer]/STEWARDESS-C Work Phone: [facility] 10-10-2024 19:20-0500 Body weight 93.53 kg Vivien Podlogar [employer]/STEWARDESS-C Work Phone: [facility] 04-15-2024 09:09-0400 Body mass index (BMI) [Ratio] 34.94 kg/m2 Vivien Podlogar 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.ADJUNCT LECTURER Work Phone: [facility] 04-15-2024 09:09-0400 Body weight 89.45 kg Vivien Podlogar 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.ADJUNCT LECTURER Work Phone: [facility] 04-15-2024 09:09-0400 Diastolic blood pressure 78 mm[Hg] Vivien Podlogar 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.ADJUNCT LECTURER Work Phone: [facility] 04-15-2024 09:09-0400 Heart rate 73 /min Vivien Podlogar 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.ADJUNCT LECTURER Work Phone: [facility] 04-15-2024 09:09-0400 Respiratory rate 18 /min Vivien Podlogar 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.ADJUNCT LECTURER Work Phone: [facility] 04-15-2024 09:09-0400 SaO2% (BldA) [Mass fraction] 97 % Vivien Podlogar 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.ADJUNCT LECTURER Work Phone: [facility] 04-15-2024 09:09-0400 Systolic blood pressure 118 mm[Hg] Vivien Podlogar 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.ADJUNCT LECTURER Work Phone: [facility] 03-18-2024 10:00-0400 Diastolic blood pressure 78 mm[Hg] Vivien Podlogar 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.ADJUNCT LECTURER Work Phone: [facility] Comment on above: CHRIS BP 03-18-2024 10:00-0400 Heart rate 67 /min Vivien Podlogar 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.ADJUNCT LECTURER Work Phone: [facility] 03-18-2024 10:00-0400 Systolic blood pressure 146 mm[Hg] Vivien Podlogar 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.ADJUNCT LECTURER Work Phone: [facility] Comment on above: CHRIS BP 03-18-2024 09:23-0400 Body height 160 cm Vivien Podlogar 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.ADJUNCT LECTURER Work Phone: [facility] 03-18-2024 09:23-0400 Body mass index (BMI) [Ratio] 36.18 kg/m2 Vivien Podlogar 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.ADJUNCT LECTURER Work Phone: [facility] 03-18-2024 09:23-0400 Body weight 92.63 kg Vivien Podlogar 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.ADJUNCT LECTURER Work Phone: [facility] 03-18-2024 09:23-0400 Respiratory rate 16 /min Vivien Podlogar 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.ADJUNCT LECTURER Work Phone: [facility] 03-18-2024 09:23-0400 SaO2% (BldA) [Mass fraction] 98 % Vivien Podlogar 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.ADJUNCT LECTURER Work Phone: [facility] 12-26-2023 14:32-0500 Body height 157.48 cm [facility] 12-26-2023 14:32-0500 Body mass index (BMI) [Ratio] 37.9 kg/m2 [facility] 12-26-2023 14:32-0500 Body temperature 98.3 [degF] [facility] 12-26-2023 14:32-0500 Body weight 93.98 kg [facility] 12-26-2023 14:32-0500 Diastolic blood pressure 96 mm[Hg] [facility] 12-26-2023 14:32-0500 Heart rate 91 /min [facility] 12-26-2023 14:32-0500 Respiratory rate 18 /min [facility] 12-26-2023 14:32-0500 SaO2% (BldA) [Mass fraction] 100 % [facility] 12-26-2023 14:32-0500 Systolic blood pressure 150 mm[Hg] [facility] 09-24-2023 22:14-0400 Heart rate 68 /min [facility] 09-24-2023 22:14-0400 Respiratory rate 16 /min [facility] 09-24-2023 22:14-0400 SaO2% (BldA) [Mass fraction] 97 % [facility] 09-24-2023 18:14-0400 Body height 157.48 cm [facility] 09-24-2023 18:14-0400 Body mass index (BMI) [Ratio] 38 kg/m2 [facility] 09-24-2023 18:14-0400 Body temperature 97.8 [degF] [facility] 09-24-2023 18:14-0400 Body weight 94.3 kg [facility] 09-24-2023 18:14-0400 Diastolic blood pressure 95 mm[Hg] [facility] 09-24-2023 18:14-0400 Systolic blood pressure 140 mm[Hg] [facility] 04-06-2023 16:01-0400 Diastolic blood pressure 79 mm[Hg] [facility] 04-06-2023 16:01-0400 Heart rate 74 /min [facility] 04-06-2023 16:01-0400 Respiratory rate 16 /min [facility] 04-06-2023 16:01-0400 SaO2% (BldA) [Mass fraction] 100 % [facility] 04-06-2023 16:01-0400 Systolic blood pressure 120 mm[Hg] [facility] 04-06-2023 13:52-0400 Body height 157.48 cm [facility] 04-06-2023 13:52-0400 Body mass index (BMI) [Ratio] 35.3 kg/m2 [facility] 04-06-2023 13:52-0400 Body temperature 97 [degF] [facility] 04-06-2023 13:52-0400 Body weight 87.63 kg [facility] 11-14-2022 16:42-0500 Heart rate 77 /min No Primary Care Physician [facility] Work Phone: 11-14-2022 16:42-0500 Respiratory rate 16 /min No Primary Care Physician [facility] Work Phone: 11-14-2022 16:42-0500 SaO2% (BldA) [Mass fraction] 97 % No Primary Care Physician [facility] Work Phone: 11-14-2022 15:25-0500 Body height 157.48 cm No Primary Care Physician [facility] Work Phone: 11-14-2022 15:25-0500 Body mass index (BMI) [Ratio] 36 kg/m2 No Primary Care Physician [facility] Work Phone: 11-14-2022 15:25-0500 Body temperature 97.3 [degF] No Primary Care Physician [facility] Work Phone: 11-14-2022 15:25-0500 Body weight 89.35 kg No Primary Care Physician [facility] Work Phone: 11-14-2022 15:25-0500 Diastolic blood pressure 63 mm[Hg] No Primary Care Physician [facility] Work Phone: 11-14-2022 15:25-0500 Systolic blood pressure 140 mm[Hg] No Primary Care Physician [facility] Work Phone: 08-15-2022 07:43-0400 Diastolic blood pressure 62 mm[Hg] [facility] Work Phone: 08-15-2022 07:43-0400 Heart rate 74 /min [facility] Work Phone: 08-15-2022 07:43-0400 Respiratory rate 14 /min [facility] Work Phone: 08-15-2022 07:43-0400 SaO2% (BldA) [Mass fraction] 98 % [facility] Work Phone: 08-15-2022 07:43-0400 Systolic blood pressure 110 mm[Hg] [facility] Work Phone: 08-15-2022 06:23-0400 Body height 157.48 cm [facility] Work Phone: 08-15-2022 06:23-0400 Body mass index (BMI) [Ratio] 35.6 kg/m2 [facility] Work Phone: 08-15-2022 06:23-0400 Body temperature 98.1 [degF] [facility] Work Phone: 08-15-2022 06:23-0400 Body weight 88.4 kg [facility] Work Phone: 06-29-2022 12:46-0400 Respiratory rate 18 /min [facility] Work Phone: 06-29-2022 10:38-0400 Body height 157.48 cm [facility] Work Phone: 06-29-2022 10:38-0400 Body mass index (BMI) [Ratio] 33.8 kg/m2 [facility] Work Phone: 06-29-2022 10:38-0400 Body temperature 98 [degF] [facility] Work Phone: 06-29-2022 10:38-0400 Body weight 83.91 kg [facility] Work Phone: 06-29-2022 10:38-0400 Diastolic blood pressure 97 mm[Hg] [facility] Work Phone: 06-29-2022 10:38-0400 Heart rate 91 /min [facility] Work Phone: 06-29-2022 10:38-0400 SaO2% (BldA) [Mass fraction] 100 % [facility] Work Phone: 06-29-2022 10:38-0400 Systolic blood pressure 129 mm[Hg] [facility] Work Phone: 06-02-2022 15:08-0400 Diastolic blood pressure 66 mm[Hg] [facility] Work Phone: 06-02-2022 15:08-0400 Heart rate 62 /min [facility] Work Phone: 06-02-2022 15:08-0400 Respiratory rate 15 /min [facility] Work Phone: 06-02-2022 15:08-0400 SaO2% (BldA) [Mass fraction] 99 % [facility] Work Phone: 06-02-2022 15:08-0400 Systolic blood pressure 152 mm[Hg] [facility] Work Phone: 06-02-2022 13:51-0400 Body height 157.48 cm [facility] Work Phone: 06-02-2022 13:51-0400 Body mass index (BMI) [Ratio] 33.8 kg/m2 [facility] Work Phone: 06-02-2022 13:51-0400 Body temperature 98 [degF] [facility] Work Phone: 06-02-2022 13:51-0400 Body weight 83.91 kg [facility] Work Phone: 04-28-2022 05:50-0400 Diastolic blood pressure 60 mm[Hg] [facility] Work Phone: 04-28-2022 05:50-0400 Heart rate 72 /min [facility] Work Phone: 04-28-2022 05:50-0400 Respiratory rate 20 /min [facility] Work Phone: 04-28-2022 05:50-0400 SaO2% (BldA) [Mass fraction] 99 % [facility] Work Phone: 04-28-2022 05:50-0400 Systolic blood pressure 111 mm[Hg] [facility] Work Phone: 04-28-2022 04:01-0400 Body height 157.48 cm [facility] Work Phone: 04-28-2022 04:01-0400 Body mass index (BMI) [Ratio] 35.8 kg/m2 [facility] Work Phone: 04-28-2022 04:01-0400 Body temperature 97.5 [degF] [facility] Work Phone: 04-28-2022 04:01-0400 Body weight 88.8 kg [facility] Work Phone: 02-16-2022 10:37-0400 Body mass index (BMI) [Ratio] 35.7 kg/m2 [facility] Work Phone: 02-16-2022 10:37-0400 Body temperature 96.9 [degF] [facility] Work Phone: 02-16-2022 10:37-0400 Body weight 88.6 kg [facility] Work Phone: 02-16-2022 10:37-0400 Diastolic blood pressure 80 mm[Hg] [facility] Work Phone: 02-16-2022 10:37-0400 Heart rate 104 /min [facility] Work Phone: 02-16-2022 10:37-0400 Respiratory rate 7 /min [facility] Work Phone: 02-16-2022 10:37-0400 SaO2% (BldA) [Mass fraction] 100 % [facility] Work Phone: 02-16-2022 10:37-0400 Systolic blood pressure 129 mm[Hg] [facility] Work Phone: 02-15-2022 05:50-0400 SaO2% (BldA) [Mass fraction] 100 % [facility] Work Phone: 02-15-2022 04:30-0400 Body temperature 98.9 [degF] [facility] Work Phone: 02-15-2022 04:30-0400 Diastolic blood pressure 58 mm[Hg] [facility] Work Phone: 02-15-2022 04:30-0400 Heart rate 86 /min [facility] Work Phone: 02-15-2022 04:30-0400 Respiratory rate 18 /min [facility] Work Phone: 02-15-2022 04:30-0400 Systolic blood pressure 113 mm[Hg] [facility] Work Phone: 02-15-2022 02:18-0400 Body mass index (BMI) [Ratio] 36.6 kg/m2 [facility] Work Phone: 02-15-2022 02:18-0400 Body weight 90.8 kg [facility] Work Phone: 01-27-2022 13:12-0500 Body mass index (BMI) [Ratio] 36.2 kg/m2 [facility] Work Phone: 01-27-2022 13:12-0500 Body temperature 98.1 [degF] [facility] Work Phone: 01-27-2022 13:12-0500 Body weight 89.81 kg [facility] Work Phone: 01-27-2022 13:12-0500 Diastolic blood pressure 90 mm[Hg] [facility] Work Phone: 01-27-2022 13:12-0500 Heart rate 106 /min [facility] Work Phone: 01-27-2022 13:12-0500 Respiratory rate 16 /min [facility] Work Phone: 01-27-2022 13:12-0500 SaO2% (BldA) [Mass fraction] 100 % [facility] Work Phone: 01-27-2022 13:12-0500 Systolic blood pressure 156 mm[Hg] [facility] Work Phone: 01-10-2022 08:50-0500 Diastolic blood pressure 69 mm[Hg] [facility] Work Phone: 01-10-2022 08:50-0500 Heart rate 82 /min [facility] Work Phone: 01-10-2022 08:50-0500 Respiratory rate 18 /min [facility] Work Phone: 01-10-2022 08:50-0500 Systolic blood pressure 129 mm[Hg] [facility] Work Phone: 01-10-2022 07:28-0500 Body mass index (BMI) [Ratio] 36.1 kg/m2 [facility] Work Phone: 01-10-2022 07:28-0500 Body temperature 97.4 [degF] [facility] Work Phone: 01-10-2022 07:28-0500 Body weight 89.6 kg [facility] Work Phone: 01-10-2022 07:28-0500 SaO2% (BldA) [Mass fraction] 100 % [facility] Work Phone: 01-03-2022 08:51-0500 Diastolic blood pressure 71 mm[Hg] [facility] Work Phone: 01-03-2022 08:51-0500 Heart rate 69 /min [facility] Work Phone: 01-03-2022 08:51-0500 Respiratory rate 16 /min [facility] Work Phone: 01-03-2022 08:51-0500 SaO2% (BldA) [Mass fraction] 98 % [facility] Work Phone: 01-03-2022 08:51-0500 Systolic blood pressure 122 mm[Hg] [facility] Work Phone: 01-03-2022 05:31-0500 Body mass index (BMI) [Ratio] 34.9 kg/m2 [facility] Work Phone: 01-03-2022 05:31-0500 Body temperature 98.7 [degF] [facility] Work Phone: 01-03-2022 05:31-0500 Body weight 89.6 kg [facility] Work Phone: Encounters Encounter Date Encounter Type Care Provider Facility Start: 04-03-2025 End: 04-05-2025 Refill Vivien Gustafson 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.ADJUNCT LECTURER Work Phone: [facility] Comment on above: Refill Request Start: 02-09-2025 End: 02-09-2025 Telephone encounter Rhonda Rahman 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.ADJUNCT LECTURER Work Phone: [facility] Start: 02-03-2025 End: 03-09-2025 Follow-up encounter Chris Veras APRN.ADJUNCT LECTURER Work Phone: [facility] Start: 02-03-2025 End: 02-03-2025 ambulatory SELF Facility:[facility] Start: 02-03-2025 End: 02-03-2025 Patient encounter procedure Shahana Vasquez 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.ADJUNCT LECTURER Work Phone: [facility] Comment on above: Pain of upper abdome n (Primary Dx) Start: 02-02-2025 End: 02-02-2025 Emergency department patient visit Antonio Ortiz Facility:[facility] Start: 02-02-2025 End: 02-02-2025 Subsequent hospital visit by physician Xr [facility] Work Phone: Radiology Comment on above: Acute cough [R05.1] Start: 02-02-2025 End: 02-02-2025 amb[address] [facility] Facility:[facility] Start: 02-02-2025 End: 02-02-2025 Patient encounter procedure Shahana Colin 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.ADJUNCT LECTURER Work Phone: [facility] Comment on above: Acute cough (Primary Dx); Right upper quadrant abdominal pain; Infected cyst of skin Start: 01-26-2025 End: 01-26-2025 Emergency department patient visit Guilherme Callahan Facility:[facility] Start: 01-04-2025 End: 01-05-2025 Refill Vivien Podlogar 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.ADJUNCT LECTURER Work Phone: [facility] Comment on above: Refill Request Start: 10-21-2024 End: 10-21-2024 ambulatory [facility] Facility:[facility] Start: 10-10-2024 End: 10-10-2024 Emergency department patient visit Magen Chávez Facility:[facility] Start: 10-05-2024 End: 10-06-2024 Refill Vivien Podlogar 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.ADJUNCT LECTURER Work Phone: [facility] Comment on above: Refill Request Start: 07-12-2024 End: 07-13-2024 Refill Vivien Podlogar 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.ADJUNCT LECTURER Work Phone: [facility] Comment on above: Refill Request Start: 04-16-2024 Telephone encounter Nehemiah hough 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.ADJUNCT LECTURER Work Phone: [facility] Comment on above: Results Start: 04-15-2024 End: 04-15-2024 ambulatory VIVIEN PODLOGAR Facility:[facility] Start: 04-15-2024 End: 04-15-2024 Patient encounter procedure Vivien Podlogar 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.ADJUNCT LECTURER Work Phone: [facility] Comment on above: Hypertension, essent ial (Primary Dx); Elevated bilirubin Start: 03-24-2024 Telephone encounter Vivien Podl ogar 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.ADJUNCT LECTURER Work Phone: [facility] Start: 03-21-2024 End: 03-21-2024 ambulatory VIVIEN PODLOGAR Facility:[facility] Start: 03-18-2024 End: 03-18-2024 ambulatory VIVIEN PODLOGAR Facility:[facility] Start: 03-18-2024 End: 03-18-2024 Patient encounter procedure Vivien Podlogar 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.ADJUNCT LECTURER Work Phone: [facility] Comment on above: Encounter for medica l examination to establish care (Primary Dx); Hypertension, essential; Screening for hyperlipidemia; Polyuria; Fatigue, unspecified type; Polydipsia Start: 03-18-2024 End: 03-18-2024 Patient encounter status Vivien Podlogar 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.ADJUNCT LECTURER Work Phone: [facility] Start: 03-03-2024 End: 03-03-2024 ambulatory SHAHANA VASQUEZ Facility:[facility] Start: 12-26-2023 End: 12-26-2023 [facility] Work [facility]: Start: 09-24-2023 End: 09-24-2023 [facility] Work [facility]: Start: 04-06-2023 End: 04-06-2023 [facility] Start: 11-14-2022 End: 11-14-2022 Emergency department patient visit No [facility] Start: 11-12-2022 Refill Ranjit rock MD Work Phone: [facility] Comment on above: Refill Request Start: 08-15-2022 End: 08-15-2022 [facility] Start: 08-15-2022 End: 08-15-2022 Non-patient / Non-visit No Primary Care Physician [facility] Start: 07-14-2022 Refill Guilherme JONES RN.ADJUNCT LECTURER, DNP Work Phone: [facility] Comment on above: Refill Request Start: 06-29-2022 End: 06-29-2022 Emergency department patient visit [facility] Start: 06-02-2022 End: 06-02-2022 [facility] Start: 04-28-2022 End: 04-28-2022 [facility] Start: 04-11-2022 Chart abstracting Kev QUINONES Work Phone: Psychology Comment on above: Consult ([facility] P:t Ou treach F/U) Start: 04-08-2022 Refill Guilherme JONES RN.ADJUNCT LECTURER, DNP Work Phone: [facility] Comment on above: Refill Request Start: 02-16-2022 End: 02-16-2022 [facility] Start: 02-15-2022 End: 02-15-2022 [facility] Start: 01-27-2022 End: 01-27-2022 [facility] Start: 01-10-2022 End: 01-10-2022 [facility] Start: 01-03-2022 End: 01-03-2022 [facility] Procedures Date Procedure Procedure Detail Performing Clinician Start: 02-02-2025 US scan of gallbladder Vivien Gustafson [employer]ILRO[employer] DINING CAR STEWARD/STEWARDESS-C Work Phone: Start: 02-02-2025 Radiologic exam ches t 2 views Shahana Vasquez 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.ADJUNCT LECTURER Work Phone: Start: 01-26-2025 Computed tomography of abdomen and pelvis with intravenous contrast Vivien Podlogar [employer]RO[employer] D[employer]ING [employer] STEWARD/STEWARDESS-C Work Phone: Start: 10-10-2024 Computed tomography of abdomen and pelvis with intravenous contrast Vivien Podlogar [employer]RO[employer] D[employer]ING [employer] STEWARD/STEWARDESS-C Work Phone: Start: 03-21-2024 Lipid 1996 panel - S nik or Plasma Vivien Podlogar 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.ADJUNCT LECTURER Work Phone: Start: 03-18-2024 Urnls dip stick/tabl et rgnt auto w/o microscopy Vivien Podlogar 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.ADJUNCT LECTURER Work Phone: Start: 03-18-2024 Adult depression scr eening assessment Vivien Podlogalvaro 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.YUNG Work Phone: Start: 12-26-2023 Plain chest X-ray Start: 09-24-2023 CT of abdomen and pe lvis without contrast Start: 04-06-2023 Computed tomography of abdomen and pelvis with intravenous contrast Start: 08-15-2022 Plain chest X-ray Start: 06-02-2022 CT of head without contrast Start: 02-16-2022 Radiography of thora cic spine Start: 02-15-2022 SARS-CoV-2 & FLU Ant igen (Rapid) Start: 02-15-2022 Plain chest X-ray Start: 02-05-2022 Adult depression scr eening assessment Kev QUINONES Work Phone: Start: 01-27-2022 CT of head without contrast Start: 01-10-2022 CT of abdomen and pe lvis without contrast Start: 01-03-2022 Plain chest X-ray Start: 12-13-2020 Lipid 1996 panel - S nik or Plasma Vivien Podlogalvaro 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.YUNG Work Phone: SARS-CoV-2 & FLU Ant igen (Rapid) Plan of Treatment Date Care Activity Detail Author Start: 03-21-2029 Lipid panel Lipid Screening [facility] Start: 02-03-2026 BP Controlled (<130/80) BP Controlle d (<130/80) [facility] Start: 12-13-2025 Lipid panel Lipid Screening [facility] Start: 12-13-2025 LIPID SCREEN LIPID SCREEN [facility] Start: 07-26-2025 Influenza vaccination Influenz a Vaccine (Season Ended) [facility] Start: 04-15-2025 Annual PCP Team [employer] brad Disease Visit Annual PCP Team Chronic Disease Visit [facility] Start: 04-15-2025 BP Controlled (<130/80) BP Controlle d (<130/80) [facility] Start: 03-18-2025 Annual PCP Team [employer] brad Disease Visit Annual PCP Team Chronic Disease Visit [facility] Start: 03-18-2025 Anxiety Screening Anxiety Screening [facility] Start: 04-24-2025 Depression Screening Depression Scre ening [facility] Start: 03-18-2025 HIV screening HIV Screening [facility] Comment on above: Postponed from 07/04 (Declined at this time) Start: 02-11-2025 End: 02-11-2025 Patient encounter procedure 02/11/2025 9:40 AM EDT Office Visit [facility] [place] [address] [place] [address] Rhonda Rahman APRN.ADJUNCT [address] [facility] [place] [address] ER follow up 02/02/25 [facility] Comment on above: ER follow up 5 Start: 02-04-2025 End: 02-04-2025 Patient encounter procedure 02/04/2025 10:40 AM EDT Office Visit [facility] [place] [address] [place] [address] Rhonda Rahman APRN.ADJUNCT [address] [place] [address] ER follow up 02/02/25 [facility] Comment on above: ER follow up 5 Start: 02-02-2025 [facility] Start: 02-02-2025 End: 05-04-2025 Bacteria identified in Wound by Culture BACTERIAL CULTURE AND GRAM STAIN, ABSCESS AND WOUND (AEROBIC CULTURE) Microbiology Routine Infected cyst of skin Expected: 02/02/2025, Expires: 05/04/2025 [facility] Comment on above: Expected: 02/02/2025 , Expires: 05/04/2025 Start: 01-26-2025 [facility] Start: 10-16-2024 End: 10-16-2024 Patient encounter procedure 10/16/2024 9:20 AM EST Office Visit [facility] [address] [facility], [place] [address] Vivien Gustafson APRN.ADJUNCT [address]ECT[address]ER [address] [place], [place] [id number] 6 month follow up [facility] Comment on above: 6 month follow up Start: 10-10-2024 [place] [facility] Start: 07-26-2024 Covid-19 Vaccine ( season) Covid-19 Vaccine ( season) [facility] Start: 07-26-2024 Influenza vaccination [facility] Start: 04-23-2024 End: 07-23-2024 Comprehensive metabolic 2000 panel - Serum or Plasma COMPREHENSIVE METABOLIC PANEL Lab Routine Elevated bilirubin Expected: 04/23/2024, Expires: 07/23/2024 [facility] Work Phone: Comment on above: Expected: 04/23/2024 , Expires: 07/23/2024 Start: 04-15-2024 End: 04-15-2024 Patient encounter procedure 04/15/2024 9:20 AM EDT Office Visit [facility] [place] [address] [place] [address] PodlogarVivien APRN.ADJUNCT [address]ECTURER [address] [place] [address] BP check [facility] Comment on above: BP check Start: 03-18-2024 End: 06-17-2024 CBC W Auto Differential panel - Blood COMPLETE BLOOD COUNT AND DIFFERENTIAL Lab Routine Fatigue, unspecified type Expected: 03/18/2024, Expires: 06/17/2024 [facility] Comment on above: Expected: 03/18/2024 , Expires: 06/17/2024 Start: 03-18-2024 End: 06-17-2024 Comprehensive metabolic 2000 panel - Serum or Plasma COMPREHENSIVE METABOLIC PANEL Lab Routine Hypertension, essential Expected: 03/18/2024, Expires: 06/17/2024 [facility] Work Phone: Comment on above: Expected: 03/18/2024 , Expires: 06/17/2024 Start: 03-18-2024 End: 06-17-2024 Hemoglobin A1c in Blood HEMOGLOBIN A1C Lab Routine Polyuria Polydipsia Expected: 03/18/2024, Expires: 06/17/2024 [facility] Comment on above: Expected: 03/18/2024 , Expires: 06/17/2024 Start: 03-18-2024 End: 06-17-2024 Lipid 1996 panel - Serum or Plasma LIPID PANEL BASIC Lab Routine Screening for hyperlipidemia Expected: 03/18/2024, Expires: 06/17/2024 [facility] Comment on above: Expected: 03/18/2024 , Expires: 06/17/2024 Start: 03-18-2024 End: 06-17-2024 Thyrotropin [Units/volume] in Serum or Plasma THYROID STIMULATING HORMONE Lab Routine Fatigue, unspecified type Expected: 03/18/2024, Expires: 06/17/2024 [facility] Comment on above: Expected: 03/18/2024 , Expires: 06/17/2024 Start: 12-26-2023 [facility] Start: 09-24-2023 [facility] Start: 07-26-2023 Covid-19 Vaccine () Covid-19 Vaccine () [facility] Start: 02-06-2023 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 VISIT ANNUAL PCP TEAM CHRONIC DISEASE VISIT [facility] Start: 02-06-2023 BP CONTROLLED (<130/80) BP CONTROLLE D (<130/80) [facility] Start: 02-06-2023 COVID-19 VACCINE (#1) COVID-19 VACCI NE (#1) [facility] Comment on above: Postponed from 07/04 (Declined at this time) Postponed from 01/04 (Declined at this time) Start: 02-05-2023 Adult depression screening assessment DEPRESSION SCREENING [facility] Start: 08-15-2022 Blood chemistry [facility] Work Phone: Start: 08-15-2022 End: 08-15-2022 [facility] Work Phone: Start: 07-26-2022 Influenza vaccination [facility] Start: 02-15-2022 [facility] Work Phone: Start: 11-25-2021 DEPRESSION ASSESSMENT DEPRESSION ASS ESSMENT [facility] Start: 01-25-2019 Urine microalbumin profile [facility] Start: 1999 Hepatitis B Vaccine (1 of 3 - 19+ 3-dose series) Hepatitis B Vaccine (1 of 3 - 19+ 3-dose series) [facility] Start: 1998 BP Controlled (<130/80) BP Controlle d (<130/80) [facility] Start: 1998 HIV SCREENING HIV SCREENING [facility] Start: 1998 HIV screening HIV Screening [facility] Start: 1980 HEPATITIS B (1 of 3 - 3-dose series) HEPATITIS B (1 of 3 - 3-dose series) [facility] Bilirubin measuremen t, urine [facility] Hemoglobin [Presence ] in Urine [facility] Measurement of keton es in urine using dipstick [facility] Microscopic urinalysis [facility] Patient Education [facility] Work Phone: Patient referral [facility] Work Phone: pH of Urine [facility] Specific gravity of Urine [facility] Urinalysis, blood, qualitative [facility] Urine dipstick for glucose [facility] Urine dipstick for leukocyte esterase [facility] Urine dipstick for nitrite [facility] Urine dipstick for protein [facility] Urine examination [facility] Urine microscopy: epithelial cells [facility] Urine Microscopy: wh ite cells [facility] Urobilinogen [Presen ce] in Urine [facility] End: 03-04-2026 US Abdomen RUQ US ABD RIGHT UPPER QUADRANT Radiology STAT Right upper quadrant abdominal pain 1 Occurrences starting 02/02/2025 until 03/04/2026 [facility] Work Phone: Comment on above: 1 Occurrences starti ng 02/02/2025 until 03/04/2026 Immunizations Immunization Date Immunization Notes Care Provider Jinny mendez 01-25-2009 tetanus toxoid, redu александр diphtheria toxoid, and acellular pertussis vaccine, adsorbed 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 Work Phone: [facility] Payers Date Payer Category Payer Self-pay [id number] Medicaid MEDICAID [id number] Unknown [facility] [id number] Unknown [id number] Unknown [id number] Unknown [id number] Social History Date Type Detail Facility Start: 09-28-2020 End: 02-02-2025 Tobacco smoking status NHIS Ex-smoker [facility] Work Phone: Start: 12-26-2009 End: 12-26-2019 History of tobacco use Current smoker [facility] Work Phone: Start: 12-26-2009 End: 12-26-2019 History of tobacco use Cigarette Smoker [facility] Work Phone: Start: 02-06-2022 End: 02-03-2025 Alcohol intake Current non-drinker of alcohol (finding) [facility] Start: 12-05-2020 End: 02-05-2022 History SDOH Alcohol Frequency 1 [facility] Start: 02-05-2022 History SDOH Alcohol Std Drinks 98 [facility] Start: 02-05-2022 History SDOH Social Connections Membership 2 [facility] Start: 02-05-2022 History SDOH Social Connections Living 7 [facility] Start: 02-05-2022 History SDOH Stress 5 [facility] Start: 02-05-2022 History SDOH Financial 3 [facility] Start: 10-25-2020 Education 12 [facility] Start: 1980 Sex Assigned At Male [facility] Start: 04-28-2022 End: 12-26-2023 Tobacco smoking status RIIS Unknown if ever smoked [facility] Start: 01-07-2021 None [facility] Start: 01-07-2021 Alone [facility] Start: 04-01-2021 Cigarettes [facility] Start: 09-28-2020 End: 03-18-2024 Cigarettes smoked current (pack per day) - Reported 3 [facility] Start: 09-28-2020 End: 02-02-2025 Tobacco use and exposure Smokeless tobacco non-user [facility] Start: 02-05-2022 End: 03-18-2024 Social connection and isolation panel [facility] Do you belong to any clubs or organizations such as congregational groups, unions, fraternal or athletic groups, or school groups? No [facility] How often do you att end meetings of the clubs or organizations you belong to? Patient declined [facility] Are you now , , , , never or living with a partner? Never [facility] How often to you hav e a drink containing alcohol? Never [facility] How hard is it for y ou to pay for the very basics like food, housing, medical care, and heating Somewhat hard [facility] Do you feel stress - tense, restless, nervous, or anxious, or unable to sleep at night because your mind is troubled all the time - these days [OSQ] Very much [facility] (I/We) worried césar er (my/our) food would run out before (I/we) got money to buy more. Never true [facility] Start: 03-18-2024 Tobacco Comment june 2005. [facility] Start: 11-14-2020 Gender identity Identifies as male gender (finding) [facility] Start: 11-14-2020 Sexual orientation Heterosexual (finding) [facility] How hard is it for y ou to pay for the very basics like food, housing, medical care, and heating Not very hard [facility] Do you feel stress - tense, restless, nervous, or anxious, or unable to sleep at night because your mind is troubled all the time - these days [OSQ] Not at all [facility] Start: 02-02-2025 Sex Male (finding) [facility] Mental Status Date Assessment Result Facility 11-14-2022 Cognitive function Level Of Cons ciousness Awake;Alert;Appropriate [facility] Work Phone: 08-15-2022 Cognitive function Voice/Name [facility] Work Phone: 06-29-2022 Cognitive function Level Of Cons ciousness Awake;Alert;Appropriate;Follow s Commands [facility] Work Phone: 06-02-2022 Cognitive function Level Of Cons ciousness Awake;Alert;Appropriate;Follow s Commands [facility] Work Phone: 04-28-2022 Cognitive function Voice/Name [facility] Work Phone: 01-27-2022 Cognitive function Level Of Cons ciousness Awake;Alert;Appropriate;Follow s Commands [facility] Work Phone: 01-03-2022 Cognitive function Level Of Cons ciousness Awake;Alert;Appropriate [facility] Work Phone: Clinical Notes 04-11-2022 to 04-05-2025 Telephone Encounter - Melany Marquez MA - 04/05/2025 2:25 PM EDTTelephone Encounter - Melany Marquez MA - 04/05/2025 2:25 PM EDShahana Mobley APRN.CNP - 02/03/2025 1:38 PM EDT Note Date & Type Note Facility 04-05-2025 Telephone encounter Note Mychart message sent notifying pt he was due for physical and to call office to schedule. Melany Marquez MA [facility] 04-05-2025 Miscellaneous Notes Mychart message sent notifying pt he was due for physical and to call office to schedule. Melany Marquez MA Patient is due for annual appointment- please assist in scheduling. Vivien Gustafson APRN.CNP Prescription Refill Information The patient has been identified by name and date of : Yes Caregiver verified no other encounters exist for this prescription request: Yes Caregiver confirmed with patient/requestor that no other refills are due, in the near future, with this provider at this time: No The last office visit in the department: 04/15/24 Does the patient have a future office visit with this provider/department: No Requested Prescriptions Pending Prescriptions Disp Refills lisinopril (ZESTRIL) 10 mg tablet 90 tablet 0 Sig: Take 1 tablet by mouth once daily. For blood pressure PT NOTIFIED VIA [facility] HE IS DUE FOR YEARLY APPT. Melany Marquez MA April 05, 2025 1:00 PM documented in this encounter [facility] 04-05-2025 Telephone encounter Note Patient is due for annual appointment- please assist in scheduling. Vivien Gustafson APRN.CNP [facility] 04-05-2025 Telephone encounter Note Prescription Refill Information The patient has been identified by name and date of : Yes Caregiver verified no other encounters exist for this prescription request: Yes Caregiver confirmed with patient/requestor that no other refills are due, in the near future, with this provider at this time: No The last office visit in the department: 04/15/24 Does the patient have a future office visit with this provider/department: No Requested Prescriptions Pending Prescriptions Disp Refills lisinopril (ZESTRIL) 10 mg tablet 90 tablet 0 Sig: Take 1 tablet by mouth once daily. For blood pressure PT NOTIFIED VIA [facility] HE IS DUE FOR YEARLY APPT. Melany Marquez MA April 05, 2025 1:00 PM [facility] 02-09-2025 Telephone encounter Note Patient was seen at [facility] on February 02, 2025 for abdominal pain. Pain was intermittent, gradual onset, described as cramping in the right upper quadrant. Negative for nausea vomiting. Negative for diarrhea, melena, or hematochezia. Negative for dysuria, frequency, hematuria or urgency. Patient is a 44-year-old male with a history of hypertension. No prior abdominal surgeries and has a history of right-sided abdominal pain without specific diagnosis. This has been worked up in the past. HIDA scan the [facility] showed sludge but did not need surgery at the time. He is having recurrent pain. Denies nausea vomiting. Having yellowish stools. No melena or hematic emesis. No fever. No weight loss. No dysuria. Blood pressure 133/80, heart rate 112, respirations 20, temp 97.5, 97% on room air. CT scan did not show anything specific. Had a prior HIDA scan. Ultrasound today. Given Toradol for pain. Labs were obtained. Labs are unremarkable. WBC 12.8, hemoglobin 14.1, hematocrit 40.9, platelet count 443 Neutrophils 72.5, lymphocytes 15.9 Sodium 133, potassium 4.2, BUN 18, creatinine 1.13, glucose 110 Calcium 9.2 AST 28, ALT 32, alkaline phosphatase 104 Lipase 51 Gallbladder is contracted on ultrasound. No evidence of Tanna lithiasis. Patient ate 3 hours ago [facility] Work Phone: 02-09-2025 Miscellaneous Notes Patient was seen at [facility] on February 02, 2025 for abdominal pain. Pain was intermittent, gradual onset, described as cramping in the right upper quadrant. Negative for nausea vomiting. Negative for diarrhea, melena, or hematochezia. Negative for dysuria, frequency, hematuria or urgency. Patient is a 44-year-old male with a history of hypertension. No prior abdominal surgeries and has a history of right-sided abdominal pain without specific diagnosis. This has been worked up in the past. HIDA scan the [facility] showed sludge but did not need surgery at the time. He is having recurrent pain. Denies nausea vomiting. Having yellowish stools. No melena or hematic emesis. No fever. No weight loss. No dysuria. Blood pressure 133/80, heart rate 112, respirations 20, temp 97.5, 97% on room air. CT scan did not show anything specific. Had a prior HIDA scan. Ultrasound today. Given Toradol for pain. Labs were obtained. Labs are unremarkable. WBC 12.8, hemoglobin 14.1, hematocrit 40.9, platelet count 443 Neutrophils 72.5, lymphocytes 15.9 Sodium 133, potassium 4.2, BUN 18, creatinine 1.13, glucose 110 Calcium 9.2 AST 28, ALT 32, alkaline phosphatase 104 Lipase 51 Gallbladder is contracted on ultrasound. No evidence of Tanna lithiasis. Patient ate 3 hours ago documented in this encounter [facility] 02-03-2025 Note HNO ID: [id number] Author: SHAHANA VASQUEZ APRN.YUNG Service: ? Author Type: Nurse Practitioner Type: Progress Notes Filed: 02/03/2025 13:49 Note Text: This note was created using QBInternationalriter. Subjective Artie Cabrera is a 44 year old male. 44 year old male with PMH HTN presents for abdominal pain Ongoing, In fact, patient seen here yesterday for multiple complaints which included abdominal pain Right upper quadrant pain Intermittent X 1 month Denies fever or chills +nausea at times Denies emesis He was seen here yesterday Labs obtained US ordered Labs normal, no US obtained He went to the ED last night for complaints of abdominal pain States US completed there Denies tobacco usage The history is provided by the patient. No diplomatic interpreter/translator was used. Abdominal Pain This is a new problem. The current episode started more than 1 week ago. The problem occurs every several days. The problem has not changed since onset.The pain is associated with an unknown factor. The pain is located in the RUQ. The pain is at a severity of 5/10. The pain is moderate. Pertinent negatives include arthralgias. Nothing aggravates the symptoms. Nothing relieves the symptoms. Past workup does not include GI consult, CT scan, ultrasound, surgery or barium enema. His past medical history does not include PUD, gallstones, GERD, ulcerative colitis, Crohn's disease or irritable bowel syndrome. PAST MEDICAL HISTORY Diagnosis Date Atypical chest pain Elevated blood pressure reading Hypertension, essential 02/06/2022 Obesity, Class I, BMI 30-34.9 02/06/2022 Painful respiration pleurisy PAST SURGICAL HISTORY Procedure Laterality Date PAST SURGICAL HISTORY OF teeth extractions ALLERGIES Naproxen and Morphine MEDICATIONS doxycycline (VIBRA-TABS) 100 mg tablet Take 1 tablet by mouth two times a day for 7 days. lisinopril (ZESTRIL) 10 mg tablet Take 1 tablet by mouth once daily. For blood pressure FAMILY HISTORY Problem Relation Age of Onset other (Gallbladder cancer) Mother None Father No Known Problems Maternal Grandmother No Known Problems Maternal Grandfather other (Brain tumor) Paternal Grandmother No Known Problems Paternal Grandfather Social History Tobacco Use Smoking status: Former Current packs/day: 0.00 Average packs/day: 3.0 packs/day for 10.0 years (30.0 ttl pk-yrs) Types: Cigarettes Start date: 12/26/2009 Quit date: 12/26/2019 Years since quittin.1 Smokeless tobacco: Never Tobacco comments: june 2005. Vaping Use Vaping status: Never Used Substance Use Topics Alcohol use: No Drug use: No Comment: none since 2004 marijuana Review of Systems Eyes: Negative for pain, discharge and itching. Respiratory: Negative for apnea, cough, choking and chest tightness. Cardiovascular: Negative for chest pain, palpitations and leg swelling. Gastrointestinal: Positive for abdominal pain. Musculoskeletal: Negative for arthralgias, back pain and gait problem. Skin: Negative for color change, pallor, rash and wound. Allergic/Immunologic: Negative for environmental allergies, food allergies and immunocompromised state. Hematological: Negative for adenopathy. Does not bruise/bleed easily. Psychiatric/Behavioral: Negative for agitation and behavioral problems. Objective BP 122/78 Pulse 113 Temp 37.1 ?C (98.7 ?F) (Tympanic) Resp 16 Wt 94.2 kg (207 lb 10.8 oz) SpO2 99% BMI 36.80 kg/m? Physical Exam Vitals and nursing note reviewed. Constitutional: General: He is not in acute distress. Appearance: Normal appearance. He is obese. He is not ill-appearing, toxic-appearing or diaphoretic. HENT: Head: Normocephalic and atraumatic. Comments: Head with multiple sebaceous cysts noted Right Ear: External ear normal. Left Ear: External ear normal. Nose: Nose normal. No congestion or rhinorrhea. Mouth/Throat: Mouth: Mucous membranes are moist. Pharynx: Oropharynx is clear. No oropharyngeal exudate or posterior oropharyngeal erythema. Eyes: General: Right eye: No discharge. Left eye: No discharge. Extraocular Movements: Extraocular movements intact. Conjunctiva/sclera: Conjunctivae normal. Pupils: Pupils are equal, round, and reactive to light. Cardiovascular: Rate and Rhythm: Regular rhythm. Pulses: Normal pulses. Heart sounds: Normal heart sounds. No murmur heard. No friction rub. No gallop. Pulmonary: Effort: Pulmonary effort is normal. No respiratory distress. Breath sounds: Normal breath sounds. No stridor. No wheezing, rhonchi or rales. Chest: Chest wall: No tenderness. Abdominal: General: Abdomen is flat. There is no distension (upper abdomen x 2). Palpations: Abdomen is soft. There is no mass. Tenderness: There is abdominal tenderness. There is no guarding or rebound. Hernia: No hernia is present. Musculoskeletal: General: No swelling, tenderness, deformity or signs of injury. Norm (more content not included)... [facility] 02-03-2025 History of Present illness Narrative This note was created using i[employer] Mediater. Subjective Artie Cabrera is a 44 year old male. 44 year old male with PMH HTN presents for abdominal pain Ongoing, In fact, patient seen here yesterday for multiple complaints which included abdominal pain Right upper quadrant pain Intermittent X 1 month Denies fever or chills +nausea at times Denies emesis He was seen here yesterday Labs obtained US ordered Labs normal, no US obtained He went to the ED last night for complaints of abdominal pain States US completed there Denies tobacco usage The history is provided by the patient. No diplomatic interpreter/translator was used. Abdominal Pain This is a new problem. The current episode started more than 1 week ago. The problem occurs every several days. The problem has not changed since onset.The pain is associated with an unknown factor. The pain is located in the RUQ. The pain is at a severity of 5/10. The pain is moderate. Pertinent negatives include arthralgias. Nothing aggravates the symptoms. Nothing relieves the symptoms. Past workup does not include GI consult, CT scan, ultrasound, surgery or barium enema. His past medical history does not include PUD, gallstones, GERD, ulcerative colitis, Crohn's disease or irritable bowel syndrome. PAST MEDICAL HISTORY Diagnosis Date Atypical chest pain Elevated blood pressure reading Hypertension, essential 02/06/2022 Obesity, Class I, BMI 30-34.9 02/06/2022 Painful respiration pleurisy PAST SURGICAL HISTORY Procedure Laterality Date PAST SURGICAL HISTORY OF teeth extractions ALLERGIES Naproxen and Morphine MEDICATIONS doxycycline (VIBRA-TABS) 100 mg tablet Take 1 tablet by mouth two times a day for 7 days. lisinopril (ZESTRIL) 10 mg tablet Take 1 tablet by mouth once daily. For blood pressure FAMILY HISTORY Problem Relation Age of Onset other (Gallbladder cancer) Mother None Father No Known Problems Maternal Grandmother No Known Problems Maternal Grandfather other (Brain tumor) Paternal Grandmother No Known Problems Paternal Grandfather Social History Tobacco Use Smoking status: Former Current packs/day: 0.00 Average packs/day: 3.0 packs/day for 10.0 years (30.0 ttl pk-yrs) Types: Cigarettes Start date: 12/26/2009 Quit date: 12/26/2019 Years since quittin.1 Smokeless tobacco: Never Tobacco comments: june 2005. Vaping Use Vaping status: Never Used Substance Use Topics Alcohol use: No Drug use: No Comment: none since 2004 marijuana Review of Systems Eyes: Negative for pain, discharge and itching. Respiratory: Negative for apnea, cough, choking and chest tightness. Cardiovascular: Negative for chest pain, palpitations and leg swelling. Gastrointestinal: Positive for abdominal pain. Musculoskeletal: Negative for arthralgias, back pain and gait problem. Skin: Negative for color change, pallor, rash and wound. Allergic/Immunologic: Negative for environmental allergies, food allergies and immunocompromised state. Hematological: Negative for adenopathy. Does not bruise/bleed easily. Psychiatric/Behavioral: Negative for agitation and behavioral problems. Objective BP 122/78 Pulse 113 Temp 37.1 C (98.7 F) (Tympanic) Resp 16 Wt 94.2 kg (207 lb 10.8 oz) SpO2 99% BMI 36.80 kg/m Physical Exam Vitals and nursing note reviewed. Constitutional: General: He is not in acute distress. Appearance: Normal appearance. He is obese. He is not ill-appearing, toxic-appearing or diaphoretic. HENT: Head: Normocephalic and atraumatic. Comments: Head with multiple sebaceous cysts noted Right Ear: External ear normal. Left Ear: External ear normal. Nose: Nose normal. No congestion or rhinorrhea. Mouth/Throat: Mouth: Mucous membranes are moist. Pharynx: Oropharynx is clear. No oropharyngeal exudate or posterior oropharyngeal erythema. Eyes: General: Right eye: No discharge. Left eye: No discharge. Extraocular Movements: Extraocular movements intact. Conjunctiva/sclera: Conjunctivae normal. Pupils: Pupils are equal, round, and reactive to light. Cardiovascular: Rate and Rhythm: Regular rhythm. Pulses: Normal pulses. Heart sounds: Normal heart sounds. No murmur heard. No friction rub. No gallop. Pulmonary: Effort: Pulmonary effort is normal. No respiratory distress. Breath sounds: Normal breath sounds. No stridor. No wheezing, rhonchi or rales. Chest: Chest wall: No tenderness. Abdominal: General: Abdomen is flat. There is no distension (upper abdomen x 2). Palpations: Abdomen is soft. There is no mass. Tenderness: There is abdominal tenderness. There is no guarding or rebound. Hernia: No hernia is present. Musculoskeletal: General: No swelling, tenderness, deformity or signs of injury. Normal range of motion. Cervical back: Normal range of motion and neck supple. No rigidity or tenderness. Right lower leg: No edema. Left lower leg: No edema. Lymphadenopathy: Cervical: No cervical adenopathy. Skin: General: Skin is warm and dry. Capillary Refill: Capillary refill takes less than 2 seconds. Coloration: Skin is not jaundiced or pale. Findings: No bruising, lesion or rash. Neurological: General: No focal deficit present. Mental Status: He is alert and oriented to person, place, and time. Cranial Nerves: No cranial nerve deficit. Sensory: No sensory deficit. Motor: No weakness. Coordination: Coordination normal. Gait: Gait normal. Deep Tendon Reflexes: Reflexes normal. Psychiatric: Mood and Affect: Mood normal. Behavior: Behavior normal. Thought Content: Thought content normal. Assessment and Plan ASSESSMENT/PLAN: 1. Pain of upper abdomen - ICD9: 789.09, ICD10: R10.10 Ongoing Seen here yesterday for same CBC and CMP in office essentially normal He was scheduled for an outpatient US, but ultimately ended up at [facility] ED yesterday US normal per patient but presents with continued symptoms. Discussed limitations of express care, he would be better suited f/u with PCP since he has been seen twice for same Kind of figured you would say that Appt made with PCP tomorrow Shahana Vasquez APRN.YUNG documented in this encounter [facility] 02-02-2025 Radiology Diagnostic study note [facility] Imaging Services [address] [place] [address] Gallbladder MR#: [id number] Acct: [id number] Name: ARTIE CABRERA Rep #: [id number] : [id number] M 44 From: Jevon Lobato MD PCP: RODRIGO SchneiderC Status: REG E R Study:Gallbladder Date of Exam: 02/02/25 Exam# [id number] Ordering Dr: Reji Ortiz MD PROCEDURE: Ultrasound of the right upper quadrant. REASON FOR EXAM: RUQ PAIN COMPARISON: None FINDINGS: Liver: Grossly normal size and echotexture. Gallbladder: The gallbladder is contracted. The gallbladder wall measures 2.3 mm. Patient ate 3 hours ago. Common bile duct: Normal measuring it measures 3.1 mm.. Pancreas: Visualized portions are sonographically unremarkable. Visualized portions of the right kidney are unremarkable. No right upper quadrant ascites. US/Gallbladder IMPRESSION: The gallbladder is contracted. No evidence of cholelithiasis. The patient ate 3 hours ago. [facility] CC: AMY Gustafson; Dr. Antonio Ortiz MD ~ Signal Tester: Signed [facility] 02-02-2025 Instructions Shahana Vasquez APRN.CNP - 02/02/2025 9:03 AM EDT Please schedule your Ultrasound The chest xray was normal Please take antibiotic and follow up with dermatology for your cyst. documented in this encounter [facility] 02-02-2025 History of Present illness Narrative Radiology Service Progress Note PATIENT NAME: Artie Cabrera DATE OF SERVICE: February 02, 2025 TIME: 8:48 AM PATIENT IDENTITY VERIFICATION COMPLETED USING TWO (2) IDENTIFIERS: Name and Date of confirmed by patient verbally. FALL SCREENING: Has the patient had 2 falls in the last year or 1 fall with injury or currently using an Ambulatory Assistive Device (Walker, Cane, Wheelchair, Crutches, etc.)? No PATIENT GENDER DATA: Assigned male at PATIENT RELEVANT IMPLANT DATA REVIEWED: Not Applicable PATIENT PRESENTS WITH AN IMPLANTABLE OR ATTACHED BOAT TENDER: No RADIOLOGY DEPARTMENT: General X-ray: Exam(s) Completed: Chest X-Ray PERIPHERAL IV DATA: Not applicable SIGNED BY: RT Eitan(Wendy) February 02, 2025 8:48 AM documented in this encounter [facility] 02-02-2025 Note HNO ID: [id number] Author: RAGHU BLACK RT(R) Service: Radiology Author Type: Technologist Type: Progress Notes Filed: 02/02/2025 08:52 Note Text: Radiology Service Progress Note PATIENT NAME: Artie Cabrera DATE OF SERVICE: February 02, 2025 TIME: 8:48 AM PATIENT IDENTITY VERIFICATION COMPLETED USING TWO (2) IDENTIFIERS: Name and Date of confirmed by patient verbally. FALL SCREENING: Has the patient had 2 falls in the last year or 1 fall with injury or currently using an Ambulatory Assistive Device (Walker, Cane, Wheelchair, Crutches, etc.)? No PATIENT GENDER DATA: Assigned male at PATIENT RELEVANT IMPLANT DATA REVIEWED: Not Applicable PATIENT PRESENTS WITH AN IMPLANTABLE OR ATTACHED BOAT TENDER: No RADIOLOGY DEPARTMENT: General X-ray: Exam(s) Completed: Chest X-Ray PERIPHERAL IV DATA: Not applicable SIGNED BY: Raghu Black, RT(R) February 02, 2025 8:48 AM [facility] 02-02-2025 Note HNO ID: [id number] Author: SHAHANA VASQUEZ APRN.ADJUNCT LECTURER Service: ? Author Type: Nurse Practitioner Type: Progress Notes Filed: 02/02/2025 09:54 Note Text: This note was created using NoteWriter. Subjective Artie Cabrera is a 44 year old male. 44 year old male with PMH HTN presents for multiple complaints 1. Cyst Had it my whole life Endorses that it has recently a month Oozing Has been using band aids 2. Cough A while x one month +productive at times Non productive at others +chest wall pain with coughing Right sided think I am pulling a muscle Cough medicine Denies CP Denies hemoptysis Denies accompanying eye, nose or throat 3. Right upper quadrant pain Intermittent X 1 month Think my gallbladder is on the barton Denies fever or chills +nausea at times Denies emesis Denies pain presently Denies seeking medical treatment Denies tobacco usage The history is provided by the patient. No diplomatic interpreter/translator was used. Cough This is a new problem. The current episode started more than 1 week ago. The problem occurs constantly. The problem has not changed since onset.Cough characteristics: productive/non productive. There has been no fever. Pertinent negatives include no chest pain, no chills, no sweats, no weight loss, no ear congestion, no ear pain, no headaches, no rhinorrhea, no sore throat, no myalgias, no shortness of breath, no wheezing and no eye redness. He has tried cough syrup for the symptoms. The treatment provided no relief. He is not a smoker. His past medical history does not include bronchitis, pneumonia, bronchiectasis, COPD, emphysema or asthma. Abdominal Pain This is a new problem. The current episode started more than 1 week ago. The problem occurs every several days. The problem has not changed since onset.The pain is associated with an unknown factor. The pain is located in the RUQ. The pain is at a severity of 5/10. The pain is moderate. Associated symptoms include nausea. Pertinent negatives include anorexia, fever, belching, diarrhea, flatus, hematochezia, melena, vomiting, constipation, dysuria, frequency, hematuria, headaches, arthralgias and myalgias. Nothing aggravates the symptoms. Nothing relieves the symptoms. Past workup does not include GI consult, CT scan, ultrasound, surgery or barium enema. His past medical history does not include PUD, gallstones, GERD, ulcerative colitis, Crohn's disease or irritable bowel syndrome. PAST MEDICAL HISTORY Diagnosis Date Atypical chest pain Elevated blood pressure reading Hypertension, essential 02/06/2022 Obesity, Class I, BMI 30-34.9 02/06/2022 Painful respiration pleurisy PAST SURGICAL HISTORY Procedure Laterality Date PAST SURGICAL HISTORY OF teeth extractions ALLERGIES Naproxen and Morphine MEDICATIONS lisinopril (ZESTRIL) 10 mg tablet Take 1 tablet by mouth once daily. For blood pressure doxycycline (VIBRA-TABS) 100 mg tablet Take 1 tablet by mouth two times a day for 7 days. FAMILY HISTORY Problem Relation Age of Onset other (Gallbladder cancer) Mother None Father No Known Problems Maternal Grandmother No Known Problems Maternal Grandfather other (Brain tumor) Paternal Grandmother No Known Problems Paternal Grandfather Social History Tobacco Use Smoking status: Former Current packs/day: 0.00 Average packs/day: 3.0 packs/day for 10.0 years (30.0 ttl pk-yrs) Types: Cigarettes Start date: 12/26/2009 Quit date: 12/26/2019 Years since quittin.1 Smokeless tobacco: Never Tobacco comments: june 2005. Vaping Use Vaping status: Never Used Substance Use Topics Alcohol use: No Drug use: No Comment: none since 2004 marijuana Review of Systems Constitutional: Negative for chills, fever and weight loss. HENT: Negative for congestion, ear pain, rhinorrhea and sore throat. Eyes: Negative for redness. Respiratory: Positive for cough. Negative for shortness of breath and wheezing. Cardiovascular: Negative for chest pain. Gastrointestinal: Positive for abdominal pain and nausea. Negative for anorexia, constipation, diarrhea, flatus, hematochezia, melena and vomiting. Endocrine: Negative for cold intolerance, heat intolerance and polydipsia. Genitourinary: Negative for dysuria, frequency and hematuria. Musculoskeletal: Negative for arthralgias and myalgias. Skin: Negative for color change, pallor, rash and wound. Allergic/Immunologic: Negative for environmental allergies, food allergies and immunocompromised state. Neurological: Negative for dizziness, facial asymmetry and headaches. Hematological: Negative for adenopathy. Does not bruise/bleed easily. Psychiatric/Behavioral: Negative for agitation and behavioral problems. Objective BP 121/84 Pulse 87 Temp 36.1 ?C (97 ?F) Resp 20 Wt 92 kg (202 lb 13.2 oz) SpO2 99% BMI 35.94 kg/m? Physical Exam Vitals and nursing note reviewed. Constit (more content not included)... [facility] 02-02-2025 History of Present illness Narrative This note was created using iVerse Mediater. Subjective Artie Cabrera is a 44 year old male. 44 year old male with PMH HTN presents for multiple complaints 1. Cyst Had it my whole life Endorses that it has recently a month Oozing Has been using band aids 2. Cough A while x one month +productive at times Non productive at others +chest wall pain with coughing Right sided think I am pulling a muscle Cough medicine Denies CP Denies hemoptysis Denies accompanying eye, nose or throat 3. Right upper quadrant pain Intermittent X 1 month Think my gallbladder is on the barton Denies fever or chills +nausea at times Denies emesis Denies pain presently Denies seeking medical treatment Denies tobacco usage The history is provided by the patient. No diplomatic interpreter/translator was used. Cough This is a new problem. The current episode started more than 1 week ago. The problem occurs constantly. The problem has not changed since onset.Cough characteristics: productive/non productive. There has been no fever. Pertinent negatives include no chest pain, no chills, no sweats, no weight loss, no ear congestion, no ear pain, no headaches, no rhinorrhea, no sore throat, no myalgias, no shortness of breath, no wheezing and no eye redness. He has tried cough syrup for the symptoms. The treatment provided no relief. He is not a smoker. His past medical history does not include bronchitis, pneumonia, bronchiectasis, COPD, emphysema or asthma. Abdominal Pain This is a new problem. The current episode started more than 1 week ago. The problem occurs every several days. The problem has not changed since onset.The pain is associated with an unknown factor. The pain is located in the RUQ. The pain is at a severity of 5/10. The pain is moderate. Associated symptoms include nausea. Pertinent negatives include anorexia, fever, belching, diarrhea, flatus, hematochezia, melena, vomiting, constipation, dysuria, frequency, hematuria, headaches, arthralgias and myalgias. Nothing aggravates the symptoms. Nothing relieves the symptoms. Past workup does not include GI consult, CT scan, ultrasound, surgery or barium enema. His past medical history does not include PUD, gallstones, GERD, ulcerative colitis, Crohn's disease or irritable bowel syndrome. PAST MEDICAL HISTORY Diagnosis Date Atypical chest pain Elevated blood pressure reading Hypertension, essential 02/06/2022 Obesity, Class I, BMI 30-34.9 02/06/2022 Painful respiration pleurisy PAST SURGICAL HISTORY Procedure Laterality Date PAST SURGICAL HISTORY OF teeth extractions ALLERGIES Naproxen and Morphine MEDICATIONS lisinopril (ZESTRIL) 10 mg tablet Take 1 tablet by mouth once daily. For blood pressure doxycycline (VIBRA-TABS) 100 mg tablet Take 1 tablet by mouth two times a day for 7 days. FAMILY HISTORY Problem Relation Age of Onset other (Gallbladder cancer) Mother None Father No Known Problems Maternal Grandmother No Known Problems Maternal Grandfather other (Brain tumor) Paternal Grandmother No Known Problems Paternal Grandfather Social History Tobacco Use Smoking status: Former Current packs/day: 0.00 Average packs/day: 3.0 packs/day for 10.0 years (30.0 ttl pk-yrs) Types: Cigarettes Start date: 12/26/2009 Quit date: 12/26/2019 Years since quittin.1 Smokeless tobacco: Never Tobacco comments: june 2005. Vaping Use Vaping status: Never Used Substance Use Topics Alcohol use: No Drug use: No Comment: none since 2004 marijuana Review of Systems Constitutional: Negative for chills, fever and weight loss. HENT: Negative for congestion, ear pain, rhinorrhea and sore throat. Eyes: Negative for redness. Respiratory: Positive for cough. Negative for shortness of breath and wheezing. Cardiovascular: Negative for chest pain. Gastrointestinal: Positive for abdominal pain and nausea. Negative for anorexia, constipation, diarrhea, flatus, hematochezia, melena and vomiting. Endocrine: Negative for cold intolerance, heat intolerance and polydipsia. Genitourinary: Negative for dysuria, frequency and hematuria. Musculoskeletal: Negative for arthralgias and myalgias. Skin: Negative for color change, pallor, rash and wound. Allergic/Immunologic: Negative for environmental allergies, food allergies and immunocompromised state. Neurological: Negative for dizziness, facial asymmetry and headaches. Hematological: Negative for adenopathy. Does not bruise/bleed easily. Psychiatric/Behavioral: Negative for agitation and behavioral problems. Objective BP 121/84 Pulse 87 Temp 36.1 C (97 F) Resp 20 Wt 92 kg (202 lb 13.2 oz) SpO2 99% BMI 35.94 kg/m Physical Exam Vitals and nursing note reviewed. Constitutional: General: He is not in acute distress. Appearance: Normal appearance. He is not ill-appearing, toxic-appearing or diaphoretic. HENT: Head: Normocephalic and atraumatic. Comments: Head with multiple sebaceous cysts noted There is one mid frontal that is draining liquid No crepitus No streaking Right Ear: External ear normal. Left Ear: External ear normal. Nose: Nose normal. No congestion or rhinorrhea. Mouth/Throat: Mouth: Mucous membranes are moist. Pharynx: Oropharynx is clear. No oropharyngeal exudate or posterior oropharyngeal erythema. Eyes: General: Right eye: No discharge. Left eye: No discharge. Extraocular Movements: Extraocular movements intact. Conjunctiva/sclera: Conjunctivae normal. Pupils: Pupils are equal, round, and reactive to light. Cardiovascular: Rate and Rhythm: Normal rate and regular rhythm. Pulses: Normal pulses. Heart sounds: Normal heart sounds. No murmur heard. No friction rub. No gallop. Pulmonary: Effort: Pulmonary effort is normal. No respiratory distress. Breath sounds: Normal breath sounds. No stridor. No wheezing, rhonchi or rales. Chest: Chest wall: No tenderness. Abdominal: General: Abdomen is flat. There is no distension. Palpations: Abdomen is soft. There is no mass. Tenderness: There is no abdominal tenderness. There is no guarding or rebound. Hernia: No hernia is present. Comments: No abdominal tenderness upon exam Musculoskeletal: General: No swelling, tenderness, deformity or signs of injury. Normal range of motion. Cervical back: Normal range of motion and neck supple. No rigidity or tenderness. Right lower leg: No edema. Left lower leg: No edema. Lymphadenopathy: Cervical: No cervical adenopathy. Skin: General: Skin is warm and dry. Capillary Refill: Capillary refill takes less than 2 seconds. Coloration: Skin is not jaundiced or pale. Findings: No bruising, lesion or rash. Neurological: General: No focal deficit present. Mental Status: He is alert and oriented to person, place, and time. Cranial Nerves: No cranial nerve deficit. Sensory: No sensory deficit. Motor: No weakness. Coordination: Coordination normal. Gait: Gait normal. Deep Tendon Reflexes: Reflexes normal. Psychiatric: Mood and Affect: Mood normal. Behavior: Behavior normal. Thought Content: Thought content normal. Assessment and Plan ASSESSMENT/PLAN: 1. Acute cough - ICD9: 786.2, ICD10: R05.1 (primary diagnosis) X one month - XR CHEST 2V FRONTAL/LAT - DOXYCYCLINE HYCLATE 100 MG TABLET 2. Right upper quadrant abdominal pain - ICD9: 789.01, ICD10: R10.11 Etiology unclear Has been ongoing for one month Intermittent Denies at time of exam No red flags Differential Diagnosis includes GERD, PUD, IBS, Gall bladder colic/cholelithiasis, and muscular - Work up with RUQ ultrasound, patient to call and arrange as he needs a ride - Increase fiber in diet - Everly low residue diet - Follow up in 2 days or sooner if worsening of symptoms - US ABD RIGHT UPPER QUADRANT 3. Infected cyst of skin - ICD9: 706.2, ICD10: L72.9, L08.9 - Begin treatment with Doxy - No lymphangetic streaking, this was defined for patient to watch for and to seek medical care immediately if appears - Area of cellulitis defined with pen, seek further attention if this area continues to enlarge - Follow up for recheck in two days - No red flags - BACTERIAL CULTURE AND GRAM STAIN, ABSCESS AND WOUND (AEROBIC CULTURE)-pending Referral to dermatology Shahana Vasquez APRN.YUNG documented in this encounter [facility] 01-05-2025 Telephone encounter Note TC to patient who verbalized understanding of below. Patient declines to schedule at this time and states he will call back in as he needs to speak with financial clearance. JACQUE Elizondo [facility] 01-05-2025 Miscellaneous Notes TC to patient who verbalized understanding of below. Patient declines to schedule at this time and states he will call back in as he needs to speak with financial clearance. JACQUE Elizondo Patient is due for follow-up. Please assist in scheduling. Vivien Gustafson APRN.CNP Prescription Refill Information The patient has been identified by name and date of : Yes Caregiver verified no other encounters exist for this prescription request: Yes Caregiver confirmed with patient/requestor that no other refills are due, in the near future, with this provider at this time: Yes The last office visit in the department: 04/15/2024 Does the patient have a future office visit with this provider/department: No Requested Prescriptions Pending Prescriptions Disp Refills lisinopril (ZESTRIL) 10 mg tablet 90 tablet 0 Sig: Take 1 tablet by mouth once daily. For blood pressure Rhonda De LPN January 05, 2025 7:08 AM documented in this encounter [facility] 01-05-2025 Telephone encounter Note Patient is due for follow-up. Please assist in scheduling. Vivien Gustafson APRN.CNP [facility] 01-05-2025 Telephone encounter Note Prescription Refill Information The patient has been identified by name and date of : Yes Caregiver verified no other encounters exist for this prescription request: Yes Caregiver confirmed with patient/requestor that no other refills are due, in the near future, with this provider at this time: Yes The last office visit in the department: 04/15/2024 Does the patient have a future office visit with this provider/department: No Requested Prescriptions Pending Prescriptions Disp Refills lisinopril (ZESTRIL) 10 mg tablet 90 tablet 0 Sig: Take 1 tablet by mouth once daily. For blood pressure Rhonda De LPN January 05, 2025 7:08 AM [facility] 10-06-2024 Telephone encounter Note The patient has been identified by name and date of : Yes Caregiver verified no other encounters exist for this prescription request: Yes Caregiver confirmed with patient/requestor that no other refills are due, in the near future, with this provider at this time: Yes The last office visit in the department: 04/15/2024 Does the patient have a future office visit with this provider/department: Yes 10/16/2024 Requested Prescriptions Pending Prescriptions Disp Refills lisinopril (ZESTRIL) 10 mg tablet 90 tablet 0 Sig: Take 1 tablet by mouth once daily. For blood pressure Cesia Allen LPN October 06, 2024 8:24 AM [facility] 10-06-2024 Miscellaneous Notes The patient has been identified by name and date of : Yes Caregiver verified no other encounters exist for this prescription request: Yes Caregiver confirmed with patient/requestor that no other refills are due, in the near future, with this provider at this time: Yes The last office visit in the department: 04/15/2024 Does the patient have a future office visit with this provider/department: Yes 10/16/2024 Requested Prescriptions Pending Prescriptions Disp Refills lisinopril (ZESTRIL) 10 mg tablet 90 tablet 0 Sig: Take 1 tablet by mouth once daily. For blood pressure Cesia Allen LPN October 06, 2024 8:24 AM documented in this encounter [facility] 07-13-2024 Telephone encounter Note Prescription Refill Information The patient has been identified by name and date of : Yes Caregiver verified no other encounters exist for this prescription request: Yes Caregiver confirmed with patient/requestor that no other refills are due, in the near future, with this provider at this time: Yes The last office visit in the department: 04/15/24 Does the patient have a future office visit with this provider/department: Yes, 10/16/24 Requested Prescriptions Pending Prescriptions Disp Refills lisinopril (ZESTRIL) 10 mg tablet 90 tablet 0 Sig: Take 1 tablet by mouth once daily. For blood pressure Immanuel Pappas LPN July 13, 2024 11:58 AM [facility] 07-13-2024 Miscellaneous Notes Prescription Refill Information The patient has been identified by name and date of : Yes Caregiver verified no other encounters exist for this prescription request: Yes Caregiver confirmed with patient/requestor that no other refills are due, in the near future, with this provider at this time: Yes The last office visit in the department: 04/15/24 Does the patient have a future office visit with this provider/department: Yes, 10/16/24 Requested Prescriptions Pending Prescriptions Disp Refills lisinopril (ZESTRIL) 10 mg tablet 90 tablet 0 Sig: Take 1 tablet by mouth once daily. For blood pressure Immanuel Pappas LPN July 13, 2024 11:58 AM [facility] [place] 04-16-2024 Telephone encounter Note Pt active on jesus manuel, message sent Kash Waterman MA [facility] [place] 04-16-2024 Miscellaneous Notes Pt active on jesus manuel, message sent Kash Waterman MA Please let patient know their labs are normal. documented in this encounter [facility] [place] 04-16-2024 Telephone encounter Note Please let patient know their labs are normal. [facility] [place] Work Phone: 04-15-2024 History of Present illness Narrative 04/15/2024 Patient presents with: Blood Pressure Check SUBJECTIVE: This is a 43 year old that is here today for Above Complaints. Bp elevated at last office visit due to patient being out of his medication for 8 months. Lisinopril restarted. Taking and tolerating without side effects. Not checking BP at home Denies visual changes, headaches, lightheadedness, dizziness, slurred speech, facial drooping, SOB, dyspnea, chest pain, palpitations, extremity numbness, tingling or weakness Needs to get his bilirubin rechecked as it was elevated on labs a month ago. Admits to yellowish/green stools at times. Denies alcohol use, acetaminophen use, hx of liver disease, yellowing of skin, itching or abdominal pain PAST MEDICAL HISTORY Diagnosis Date Atypical chest pain Elevated blood pressure reading Hypertension, essential 02/06/2022 Obesity, Class I, BMI 30-34.9 02/06/2022 Painful respiration pleurisy ALLERGIES Naproxen and Morphine MEDICATIONS Current Outpatient Medications Medication Sig lisinopril (ZESTRIL) 10 mg tablet Take 1 tablet by mouth once daily. For blood pressure No current facility-administered medications for this visit. Medications and allergies reviewed by this provider. SOCIAL HISTORY Social History Tobacco Use Smoking status: Former Packs/day: 3.00 Years: 10.00 Additional pack years: 0.00 Total pack years: 30.00 Types: Cigarettes Quit date: 12/26/2019 Years since quittin.3 Smokeless tobacco: Never Tobacco comments: june 2005. Vaping Use Vaping Use: Never used Substance Use Topics Alcohol use: No Drug use: No Comment: none since 2004 marijuana REVIEW OF SYSTEMS All other reviewed and negative other than HPI. OBJECTIVE: BP 118/78 Pulse 73 Resp 18 Wt 89.4 kg (197 lb 3.2 oz) SpO2 97% BMI 34.94 kg/m . Vital signs reviewed by this provider. APPEARANCE Well appearing, alert, in no acute distress, well-hydrated, well nourished. Abdomen: soft, nondistended, nontender, no hepatosplenomegaly or masses Latest Ref Rng 03/21/2024 WBC 3.70 - 11.00 k/uL 6.41 RBC 4.20 - 6.00 m/uL 4.91 Hemoglobin 13.0 - 17.0 g/dL 15.0 Hematocrit 39.0 - 51.0 % 45.3 MCV 80.0 - 100.0 fL 92.3 MCH 26.0 - 34.0 pg 30.5 MCHC 30.5 - 36.0 g/dL 33.1 RDW-CV 11.5 - 15.0 % 12.6 Platelet Count 150 - 400 k/uL 285 MPV 9.0 - 12.7 fL 9.1 Neut% % 40.9 Abs Neut (ANC) 1.45 - 7.50 k/uL 2.62 Lymph% % 40.2 Abs Lymph 1.00 - 4.00 k/uL 2.58 Sanborn% % 15.6 Abs Sanborn <0.87 k/uL 1.00 (H) Eosin% % 2.2 Abs Eosin <0.46 k/uL 0.14 Baso% % 0.8 Abs Baso <0.11 k/uL 0.05 Immature Gran % % 0.3 IMMATURE GRANS (ABS) <0.10 k/uL <0.03 NRBC /100 WBC 0.0 Absolute nRBC <0.01 k/uL <0.01 DTYPE Auto Protein, Total 6.3 - 8.0 g/dL 7.3 Albumin 3.9 - 4.9 g/dL 4.2 Calcium 8.5 - 10.2 mg/dL 9.6 Bilirubin, Total 0.2 - 1.3 mg/dL 1.7 (H) Alkaline Phosphatase 38 - 113 U/L 89 AST 14 - 40 U/L 26 ALT 10 - 54 U/L 26 Glucose 74 - 99 mg/dL 88 BUN 9 - 24 mg/dL 21 Creatinine 0.73 - 1.22 mg/dL 1.15 Sodium 136 - 144 mmol/L 137 Potassium 3.7 - 5.1 mmol/L 4.1 Chloride 97 - 105 mmol/L 100 CO2 22 - 30 mmol/L 26 Anion Gap 9 - 18 mmol/L 11 eGFR >=60 mL/min/1.73m 81 Cholesterol, Total <200 mg/dL 168 Triglyceride <150 mg/dL 80 HDL Cholesterol >39 mg/dL 34 (L) Non HDL Cholesterol <130 mg/dL 134 (H) Fasting Time hrs 12 VLDL Cholesterol <30 mg/dL 16 TC:HDL Ratio <5.10 4.94 LDL Cholesterol <100 mg/dL 118 (H) LDL:HDL Ratio <2.54 3.47 (H) Hemoglobin A1C 4.3 - 5.6 % 4.9 Estimated Average Glucose mg/dL 94 TSH 0.270 - 4.200 mIU/L 3.800 Legend: (H) High (L) Low The 10-year ASCVD risk score (Juanita MOELLER, et al., 2019) is: 2.9% Values used to calculate the score: Age: 43 years Sex: Male Is Non- : No Diabetic: No Tobacco smoker: No Systolic Blood Pressure: 146 mmHg Is BP treated: Yes HDL Cholesterol: 34 mg/dL Total Cholesterol: 168 mg/dL Hepatitis B Vaccine(1 of 3 - 19+ 3-dose series) Never done DTaP,Tdap,Td Vaccine(2 - Td or Tdap) due on 01/25/2019 Covid-19 Vaccine( season) Never done HIV Screening due on 03/18/2025 Influenza Vaccine(Season Ended) due on 07/26/2024 Annual PCP Team Chronic Disease Visit due on 04/15/2025 BP Controlled (<130/80) due on 04/15/2025 Lipid Screening due on 03/21/2029 Behavioral Health Screening Completed Hepatitis C Screening Completed HPV Vaccine Aged Out ASSESSMENT/PLAN: 1. Hypertension, essential - ICD9: 401.9, ICD10: I10 (primary diagnosis) - Controlled - Continue current medications - Recommend home blood pressure monitoring, to bring results to next visit - Encouraged sodium restriction, DASH or Mediterranean diet - Recommend regular aerobic exercise - Discussed need for and benefit of weight loss. BMI 34.94 kg/(m^2) - Follow up in 6 months for hypertension visit 2. Elevated bilirubin - ICD9: 277.4, ICD10: R17 - recheck today - no red flag symptoms or exam findings - red flag symptoms discussed, verbalizes understanding Vivien Gustafson APRN.ADJUNCT LECTURER Prescription instructions reviewed with patient as applicable. Patient advised if symptoms do not improve or if symptoms worsen sooner, to contact their primary care physician. Potential red flag symptoms discussed with the patient. Reviewed appropriate action plan to take if red flag symptoms occur. Patient agreeable to treatment plan. Medical Decision Making: Problems: Low: Stable chronic illness Moderate: New problem with uncertain prognosis Risk: Moderate: Moderate risk from testing/treatment Medical Decision Making Level: 4 - Moderate documented in this encounter [facility] [place] 04-15-2024 Note HNO ID: [id number] Author: VIVIEN GUSTAFSON APRN.YUNG Service: ? Author Type: Nurse Practitioner Type: Progress Notes Filed: 04/15/2024 09:58 Note Text: 04/15/2024 Patient presents with: Blood Pressure Check SUBJECTIVE: This is a 43 year old that is here today for Above Complaints. Bp elevated at last office visit due to patient being out of his medication for 8 months. Lisinopril restarted. Taking and tolerating without side effects. Not checking BP at home Denies visual changes, headaches, lightheadedness, dizziness, slurred speech, facial drooping, SOB, dyspnea, chest pain, palpitations, extremity numbness, tingling or weakness Needs to get his bilirubin rechecked as it was elevated on labs a month ago. Admits to yellowish/green stools at times. Denies alcohol use, acetaminophen use, hx of liver disease, yellowing of skin, itching or abdominal pain PAST MEDICAL HISTORY Diagnosis Date Atypical chest pain Elevated blood pressure reading Hypertension, essential 02/06/2022 Obesity, Class I, BMI 30-34.9 02/06/2022 Painful respiration pleurisy ALLERGIES Naproxen and Morphine MEDICATIONS Current Outpatient Medications Medication Sig lisinopril (ZESTRIL) 10 mg tablet Take 1 tablet by mouth once daily. For blood pressure No current facility-administered medications for this visit. Medications and allergies reviewed by this provider. SOCIAL HISTORY Social History Tobacco Use Smoking status: Former Packs/day: 3.00 Years: 10.00 Additional pack years: 0.00 Total pack years: 30.00 Types: Cigarettes Quit date: 12/26/2019 Years since quittin.3 Smokeless tobacco: Never Tobacco comments: june 2005. Vaping Use Vaping Use: Never used Substance Use Topics Alcohol use: No Drug use: No Comment: none since 2004 marijuana REVIEW OF SYSTEMS All other reviewed and negative other than HPI. OBJECTIVE: BP 118/78 Pulse 73 Resp 18 Wt 89.4 kg (197 lb 3.2 oz) SpO2 97% BMI 34.94 kg/m? . Vital signs reviewed by this provider. APPEARANCE Well appearing, alert, in no acute distress, well-hydrated, well nourished. Abdomen: soft, nondistended, nontender, no hepatosplenomegaly or masses Latest Ref Rng 03/21/2024 WBC 3.70 - 11.00 k/uL 6.41 RBC 4.20 - 6.00 m/uL 4.91 Hemoglobin 13.0 - 17.0 g/dL 15.0 Hematocrit 39.0 - 51.0 % 45.3 MCV 80.0 - 100.0 fL 92.3 MCH 26.0 - 34.0 pg 30.5 MCHC 30.5 - 36.0 g/dL 33.1 RDW-CV 11.5 - 15.0 % 12.6 Platelet Count 150 - 400 k/uL 285 MPV 9.0 - 12.7 fL 9.1 Neut% % 40.9 Abs Neut (ANC) 1.45 - 7.50 k/uL 2.62 Lymph% % 40.2 Abs Lymph 1.00 - 4.00 k/uL 2.58 Sanborn% % 15.6 Abs Sanborn <0.87 k/uL 1.00 (H) Eosin% % 2.2 Abs Eosin <0.46 k/uL 0.14 Baso% % 0.8 Abs Baso <0.11 k/uL 0.05 Immature Gran % % 0.3 IMMATURE GRANS (ABS) <0.10 k/uL <0.03 NRBC /100 WBC 0.0 Absolute nRBC <0.01 k/uL <0.01 DTYPE Auto Protein, Total 6.3 - 8.0 g/dL 7.3 Albumin 3.9 - 4.9 g/dL 4.2 Calcium 8.5 - 10.2 mg/dL 9.6 Bilirubin, Total 0.2 - 1.3 mg/dL 1.7 (H) Alkaline Phosphatase 38 - 113 U/L 89 AST 14 - 40 U/L 26 ALT 10 - 54 U/L 26 Glucose 74 - 99 mg/dL 88 BUN 9 - 24 mg/dL 21 Creatinine 0.73 - 1.22 mg/dL 1.15 Sodium 136 - 144 mmol/L 137 Potassium 3.7 - 5.1 mmol/L 4.1 Chloride 97 - 105 mmol/L 100 CO2 22 - 30 mmol/L 26 Anion Gap 9 - 18 mmol/L 11 eGFR >=60 mL/min/1.73m? 81 Cholesterol, Total <200 mg/dL 168 Triglyceride <150 mg/dL 80 HDL Cholesterol >39 mg/dL 34 (L) Non HDL Cholesterol <130 mg/dL 134 (H) Fasting Time hrs 12 VLDL Cholesterol <30 mg/dL 16 TC:HDL Ratio <5.10 4.94 LDL Cholesterol <100 mg/dL 118 (H) LDL:HDL Ratio <2.54 3.47 (H) Hemoglobin A1C 4.3 - 5.6 % 4.9 Estimated Average Glucose mg/dL 94 TSH 0.270 - 4.200 mIU/L 3.800 Legend: (H) High (L) Low The 10-year ASCVD risk score (Juanita MOELLER, et al., 2019) is: 2.9% Values used to calculate the score: Age: 43 years Sex: Male Is Non- : No Diabetic: No Tobacco smoker: No Systolic Blood Pressure: 146 mmHg Is BP treated: Yes HDL Cholesterol: 34 mg/dL Total Cholesterol: 168 mg/dL Hepatitis B Vaccine(1 of 3 - 19+ 3-dose series) Never done DTaP,Tdap,Td Vaccine(2 - Td or Tdap) due on 01/25/2019 Covid-19 Vaccine( season) Never done HIV Screening due on 03/18/2025 Influenza Vaccine(Season Ended) due on 07/26/2024 Annual PCP Team Chronic Disease Visit due on 04/15/2025 BP Controlled (<130/80) due on 04/15/2025 Lipid Screening due on 03/21/2029 Behavioral Health Screening Completed Hepatitis C Screening Completed HPV Vaccine Aged Out ASSESSMENT/PLAN: 1. Hypertension, essential - ICD9: 401.9, ICD10: I10 (primary diagnosis) - Controlled - Continue current medications - Recommend home blood pressure monitoring, to bring results to next visit - Encouraged sodium restriction, DASH or Mediterranean diet - Recommend regular aerobic exercise - Discussed need for and benefit of weight loss. BMI 34 (more content not included)... [facility] 03-24-2024 Telephone encounter Note Pt notified of results via [employer]. Melany Marquez Ma [facility] [place] 03-24-2024 Miscellaneous Notes Pt notified of results via [employer]. Melany Marquez Ma Bilirubin slightly elevated. Can recheck in one month. LDL ) bad cholesterol) slightly elevated. Recommend lower saturated fat diet along with at least 150 minutes of exercise per week. Vivien Gustafson APRN.CNP documented in this encounter [facility] [place] 03-24-2024 Telephone encounter Note Bilirubin slightly elevated. Can recheck in one month. LDL ) bad cholesterol) slightly elevated. Recommend lower saturated fat diet along with at least 150 minutes of exercise per week. Vivien Gustafson APRN.CNP [facility] [place] 03-18-2024 Note HNO ID: [id number] Author: VIVIEN GUSTAFSON APRN.CNP Service: ? Author Type: Nurse Practitioner Type: Progress Notes Filed: 03/18/2024 12:12 Note Text: 03/18/2024 Patient presents with: Physical SUBJECTIVE: This is a 43 year old that is here today for Above Complaints. Here to re establish care since his provider let. His last appointment in primary care was on 02/06/2022. Has been out of BP meds for about eight months. Does not check BP at home Occasional blurry vision and increased thirst. Also admits to polyuria. Admits to drinking quite a bit of caffienated sodas about 4-5 cans of [employer] or Coke. Feels fatigued a lot. Sleeps about six hours per night. Denies hx of snoring or daytime drowsiness. Latest Ref Rng 03/18/2024 GLUCOSE UA (POCT) Negative mg/dL Negative BILIRUBIN UA (POCT) Negative Negative KETONE UA (POCT) Negative mg/dL Negative SPECIFIC GRAVITY UA (POCT) 1.005 - 1.030 >=1.030 HEMOGLOBIN/BLOOD UA (POCT) Negative Negative PH UA (POCT) 4.5 - 8.0 5.5 PROTEIN UA (POCT) Negative mg/dL Negative UROBILINOGEN UA (POCT) Normal E.U./dL 0.2 NITRITE UA (POCT) Negative Negative LEUKOCYTES UA (POCT) Negative Negative COLOR UA (POCT) Yellow CLARITY UA (POCT) Clear PAST MEDICAL HISTORY Diagnosis Date Atypical chest pain Elevated blood pressure reading Hypertension, essential 02/06/2022 Obesity, Class I, BMI 30-34.9 02/06/2022 Painful respiration pleurisy ALLERGIES Naproxen and Morphine MEDICATIONS Current Outpatient Medications Medication Sig lisinopril (ZESTRIL, PRINIVIL) 10 mg tablet Take 1 tablet by mouth once daily. For blood pressure No current facility-administered medications for this visit. Medications and allergies reviewed by this provider. SOCIAL HISTORY Social History Tobacco Use Smoking status: Former Packs/day: 3.00 Years: 10.00 Additional pack years: 0.00 Total pack years: 30.00 Types: Cigarettes Quit date: 12/26/2019 Years since quittin.2 Smokeless tobacco: Never Tobacco comments: june 2005. Vaping Use Vaping Use: Never used Substance Use Topics Alcohol use: No Drug use: No Comment: none since 2004 marijuana REVIEW OF SYSTEMS GENERAL: No weight loss, malaise or fevers HEENT: Negative for frequent or significant headaches, No changes in hearing. no nose bleeds or other nasal problems NECK: Negative for lumps, goiter, pain and significant neck swelling RESPIRATORY: Negative for cough, hemoptysis, wheezing, COPD, dyspnea or shortness of breath CARDIOVASCULAR: Negative for leg swelling, hypertension, CHF or palpitations. Hx of chest pain in the past GI: No nausea, vomiting, or diarrhea : No history of dysuria or incontinence, MUSCULOSKELETAL: Negative for joint pain or swelling, back pain or muscle pain SKIN: Negative for lesions, rash, and itching PSYCH: Negative for sleep disturbance, mood disorder and recent psychosocial stressors HEMATOLOGY/LYMPHOLOGY: Negative for prolonged bleeding, bruising easily or swollen nodes ENDOCRINE: Negative for cold or heat intolerance,and goiter NEURO: No history of headaches, syncope, paralysis, seizures or tremors All other reviewed and negative other than HPI. OBJECTIVE: BP 146/78 Pulse 67 Resp 16 Ht 160 cm (5' 2.99) Wt 92.6 kg (204 lb 3.2 oz) SpO2 98% BMI 36.18 kg/m? . Vital signs reviewed by this provider. APPEARANCE Well appearing, alert, in no acute distress, well-hydrated, well nourished. EYES PERRLA, conjunctiva and sclera normal. EARS External ears normal, canals clear NECK Supple, no adenopathy; thyroid symmetric, normal size, no bruits HEART RRR with normal S1 and S2, no murmurs, no gallops, no JVD appreciated LUNG clear to auscultation EXTREMITIES Extremities normal, No deformities, No skin discoloration, and No edema SKIN Skin color, texture, turgor normal, no suspicious rashes or lesions to exposed sk in BP Controlled (<130/80) Never done Hepatitis B Vaccine(1 of 3 - 19+ 3-dose series) Never done DTaP,Tdap,Td Vaccine(2 - Td or Tdap) due on 01/25/2019 Covid-19 Vaccine( season) Never done HIV Screening due on 03/18/2025 Influenza Vaccine(Season Ended) due on 07/26/2024 Annual PCP Team Chronic Disease Visit due on 03/18/2025 Lipid Screening due on 12/13/2025 Behavioral Health Screening Completed Hepatitis C Screening Completed HPV Vaccine Aged Out ASSESSMENT/PLAN: 1. Encounter for medical examination to establish care - ICD9: V70.9, ICD10: Z00.00 (primary diagnosis) - Counseled on healthy diet and regular exercise - Discussed need for and benefit of weight loss. BMI 36.18 kg/(m2) - Follow up for annual exam in one year 2. Hypertension, essential - ICD9: 401.9, ICD10: I10 - Uncontrolled - Start lisinopril - Recommend home blood pressure monitoring, to bring results to next visit - Encouraged sodium restriction, DASH or Mediterranean diet - Recommend regular aerobic exercise - Discu (more content not included)... [facility] 03-18-2024 History of Present illness Narrative 03/18/2024 Patient presents with: Physical SUBJECTIVE: This is a 43 year old that is here today for Above Complaints. Here to re establish care since his provider let. His last appointment in primary care was on 02/06/2022. Has been out of BP meds for about eight months. Does not check BP at home Occasional blurry vision and increased thirst. Also admits to polyuria. Admits to drinking quite a bit of caffienated sodas about 4-5 cans of [employer] or [employer]. Feels fatigued a lot. Sleeps about six hours per night. Denies hx of snoring or daytime drowsiness. Latest Ref Rng 03/18/2024 GLUCOSE UA (POCT) Negative mg/dL Negative BILIRUBIN UA (POCT) Negative Negative KETONE UA (POCT) Negative mg/dL Negative SPECIFIC GRAVITY UA (POCT) 1.005 - 1.030 >=1.030 HEMOGLOBIN/BLOOD UA (POCT) Negative Negative PH UA (POCT) 4.5 - 8.0 5.5 PROTEIN UA (POCT) Negative mg/dL Negative UROBILINOGEN UA (POCT) Normal E.U./dL 0.2 NITRITE UA (POCT) Negative Negative LEUKOCYTES UA (POCT) Negative Negative COLOR UA (POCT) Yellow CLARITY UA (POCT) Clear PAST MEDICAL HISTORY Diagnosis Date Atypical chest pain Elevated blood pressure reading Hypertension, essential 02/06/2022 Obesity, Class I, BMI 30-34.9 02/06/2022 Painful respiration pleurisy ALLERGIES Naproxen and Morphine MEDICATIONS Current Outpatient Medications Medication Sig lisinopril (ZESTRIL, PRINIVIL) 10 mg tablet Take 1 tablet by mouth once daily. For blood pressure No current facility-administered medications for this visit. Medications and allergies reviewed by this provider. SOCIAL HISTORY Social History Tobacco Use Smoking status: Former Packs/day: 3.00 Years: 10.00 Additional pack years: 0.00 Total pack years: 30.00 Types: Cigarettes Quit date: 12/26/2019 Years since quittin.2 Smokeless tobacco: Never Tobacco comments: june 2005. Vaping Use Vaping Use: Never used Substance Use Topics Alcohol use: No Drug use: No Comment: none since 2004 marijuana REVIEW OF SYSTEMS GENERAL: No weight loss, malaise or fevers HEENT: Negative for frequent or significant headaches, No changes in hearing. no nose bleeds or other nasal problems NECK: Negative for lumps, goiter, pain and significant neck swelling RESPIRATORY: Negative for cough, hemoptysis, wheezing, COPD, dyspnea or shortness of breath CARDIOVASCULAR: Negative for leg swelling, hypertension, CHF or palpitations. Hx of chest pain in the past GI: No nausea, vomiting, or diarrhea : No history of dysuria or incontinence, MUSCULOSKELETAL: Negative for joint pain or swelling, back pain or muscle pain SKIN: Negative for lesions, rash, and itching PSYCH: Negative for sleep disturbance, mood disorder and recent psychosocial stressors HEMATOLOGY/LYMPHOLOGY: Negative for prolonged bleeding, bruising easily or swollen nodes ENDOCRINE: Negative for cold or heat intolerance,and goiter NEURO: No history of headaches, syncope, paralysis, seizures or tremors All other reviewed and negative other than HPI. OBJECTIVE: BP 146/78 Pulse 67 Resp 16 Ht 160 cm (5' 2.99) Wt 92.6 kg (204 lb 3.2 oz) SpO2 98% BMI 36.18 kg/m . Vital signs reviewed by this provider. APPEARANCE Well appearing, alert, in no acute distress, well-hydrated, well nourished. EYES PERRLA, conjunctiva and sclera normal. EARS External ears normal, canals clear NECK Supple, no adenopathy; thyroid symmetric, normal size, no bruits HEART RRR with normal S1 and S2, no murmurs, no gallops, no JVD appreciated LUNG clear to auscultation EXTREMITIES Extremities normal, No deformities, No skin discoloration, and No edema SKIN Skin color, texture, turgor normal, no suspicious rashes or lesions to exposed sk in BP Controlled (<130/80) Never done Hepatitis B Vaccine(1 of 3 - 19+ 3-dose series) Never done DTaP,Tdap,Td Vaccine(2 - Td or Tdap) due on 01/25/2019 Covid-19 Vaccine( season) Never done HIV Screening due on 03/18/2025 Influenza Vaccine(Season Ended) due on 07/26/2024 Annual PCP Team Chronic Disease Visit due on 03/18/2025 Lipid Screening due on 12/13/2025 Behavioral Health Screening Completed Hepatitis C Screening Completed HPV Vaccine Aged Out ASSESSMENT/PLAN: 1. Encounter for medical examination to establish care - ICD9: V70.9, ICD10: Z00.00 (primary diagnosis) - Counseled on healthy diet and regular exercise - Discussed need for and benefit of weight loss. BMI 36.18 kg/(m^2) - Follow up for annual exam in one year 2. Hypertension, essential - ICD9: 401.9, ICD10: I10 - Uncontrolled - Start lisinopril - Recommend home blood pressure monitoring, to bring results to next visit - Encouraged sodium restriction, DASH or Mediterranean diet - Recommend regular aerobic exercise - Discussed need for and benefit of weight loss. BMI 36.18 kg/(m^2) - Follow up in 4 weeks for hypertension visit - COMPREHENSIVE METABOLIC PANEL - LISINOPRIL 10 MG TABLET 3. Screening for hyperlipidemia - ICD9: V77.91, ICD10: Z13.220 - LIPID PANEL BASIC 4. Polyuria - ICD9: 788.42, ICD10: R35.89 - HEMOGLOBIN A1C - UA DIP, URINE (POC) 5. Fatigue, unspecified type - ICD9: 780.79, ICD10: R53.83 - COMPLETE BLOOD COUNT AND DIFFERENTIAL - THYROID STIMULATING HORMONE 6. Polydipsia - ICD9: 783.5, ICD10: R63.1 - HEMOGLOBIN A1C - UA DIP, URINE (POC Vivien Podlogar, 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.ADJUNCT LECTURER Prescription instructions reviewed with patient as applicable. Patient advised if symptoms do not improve or if symptoms worsen sooner, to contact their primary care physician. Potential red flag symptoms discussed with the patient. Reviewed appropriate action plan to take if red flag symptoms occur. Patient agreeable to treatment plan. Medical Decision Making: Problems: Moderate: 1+ chronic illnesses with change and New problem with uncertain prognosis Data: Unique test(s) ordered: 3+ Risk: Moderate: Drug management Medical Decision Making Level: 4 - Moderate documented in this encounter [facility] [place] 11-15-2022 Miscellaneous Notes OK to refill as [...] has not established with anyone since Guilherme Villatoro left. Pt reports he has been out of lisinopril x 3 days and is not feeling well without it. Pt is asking if he could please have a refill and pt will try to get re-established. Send provider message through to pt. Echo Hodgson LPN Last refill [...] pharmacy. No need to notify patient. Jesusita Allen Pss documented in this encounter [facility] [place] 11-13-2022 Miscellaneous Notes Being addressed in another encounter. Brittny Hernandez LPN documented in this encounter [facility] [place] 08-08-2022 Miscellaneous Notes MC message read 07/25/22. Will close TE at this time. Removed Mili as PCP as well. Kash Hathaway MA 2 nd attempt left message [...] pharmacy. Vale Newman documented in this encounter [facility] [place] 04-11-2022 Miscellaneous Notes My chart message sent to patient regarding refill request. Vilma Chavez LPN Advise patient the the script he picked up from [facility] back in Dec 2021 was for 90 days with one refill. He should have one refill on it and just needs to call the pharmacy to get the refill. He should also make an appt to transfer care to either Dr. Shaikh, Dr. Sullivan or Dr. Escalona since Johnnie will no longer be here after 05/25/2022. Please see [employer] message Patient has been identified by name and date of : Yes Patient phones for refill(s): Refused Prescriptions Disp Refills lisinopril (ZESTRIL, PRINIVIL) 10 mg tablet 90 tablet 1 Sig: Take 1 tablet by mouth once daily. For blood pressure JACOB: No Refused By: TASH DESAI Reason for Refusal: Records indicate that there is a valid prescription at the pharmacy Date of last office visit in primary care: 02/06/22 Please advise. Thank you. Rhonda De LPN documented in this encounter [facility] [place] Evaluation note Diagnosis Hypertension, essential Unspecified essential hypertension [facility] noteNo assessment information availableWClermont [facility] Work Phone: Evaluation note* Diagnosis Hypertension, essential Unspecified essential hypertension [facility] Hypertension, essential Unspecified essential hypertension [facility] Diagnosis Encounter for medical examination to establish care- Primary Hypertension, essential Unspecified essential hypertension Screening for hyperlipidemia Screening for lipoid disorders Polyuria Fatigue, unspecified type Polydipsia [facility] Diagnosis Elevated bilirubin- Primary Jaundice, unspecified, not of [facility]* Diagnosis Hypertension, essential- Primary Unspecified essential hypertension Elevated bilirubin Jaundice, unspecified, not of [facility]* Diagnosis Hypertension, essential Unspecified essential hypertension [facility] Diagnosis Hypertension, essential Unspecified essential hypertension [facility] Diagnosis Acute cough- Primary Right upper quadrant abdominal pain Abdominal pain, right upper quadrant Infected cyst of skin Sebaceous cyst Acute cough [facility] Diagnosis Acute cough [facility]* Diagnosis Pain of upper abdomen- Primary Abdominal pain, other specified site [facility] Additional Instructions Please follow-up with the PCP I referred you to and return for any worsening of symptoms. You can take [id number] constipation medication/fiber supplements to help alleviate your constipation.[facility] Work Phone: Hospital Discharge instructions Additional Instructions Tests today are unremarkable as is your ultrasound. Follow-up your primary care provider for further evaluation.[facility] Work Phone: Reason for referral (narrative)No reason for referral information availableWClermont County Hospital Work Phone: Chief Complaint and Reason for Visit Chief Complaint chest pain rlq and flank pain x1 day DIZZINESS sob back chest pain Chief Complaint sob back chest pain HEADACHE/DIZZY Chief Complaint chest pain HEADACHE/DIZZY WEAKNESS Chief Complaint chest pain HEADACHE/DIZZY WEAKNESS CP Chief Complaint CP CP palp Chief Complaint ABD PAIN Chief Complaint abd pain Chief Complaint abd pain calf pain, swelling, right chest pain Chief Complaint Admit Date abd pain October 10, 2024 7:20pm abd pain January 26, 2025 6:59 am ABD PAIN February 02, 2025 1:0 0pm Advance Directives Advance Directive Response Recorded Date/ Time Living Will No April 28, 2022 4 :04am Power of V Block Saw Operator No April 28, 2022 4:04am Advance Directive Response Recorded Date/ Time Living Will No June 02, 2022 2 :53pm Power of V Block Saw Operator No June 02, 2022 2:53pm Advance Directive Response Recorded Date/ Time Living Will No June 29, 2022 11:53am Power of V Block Saw Operator No June 29 11:53am Advance Directive Response Recorded Date/ Time Living Will No August 15, 2022 6:25am Power of V Block Saw Operator No July 6:25am Advance Directive Response Recorded Date/ Time Living Will No November 14, 2 022 3:58pm Power of V Block Saw Operator No November 14, 2022 3:58pm Advance Directive Response Recorded Date/ Time Living Will No April 06, 2023 2 :20pm Power of V Block Saw Operator No April 06, 2023 2:20pm Advance Directive Response Recorded Date/ Time Living Will No September 24 6:12pm Power of V Block Saw Operator No September 24, 2023 6:12pm Advance Directive Response Recorded Date/ Time Living Will No December 26 24 3:02pm Power of V Block Saw Operator No December 26, 2023 3:02pm Advance Directive Response Recorded Date/ Time Living Will No October 10, 024 8:27pm Power of V Block Saw Operator No October 10, 2024 8:27pm Living Will No January 26, 2025 8:02am Power of V Block Saw Operator No January 26 8:02am Living Will No February 02, 2025 2:23pm Power of V Block Saw Operator No February 02 2:23pm Summary Purpose Family History No Family History Records FoundNo Family History Records Found Additional Source Comments Source Comments (unrecognize d section and content) In the event this informatio n is protected by the Federal Confidentiality of Alcohol and Drug Abuse Patient Records regulations: The Federal rules restrict any use of the information to criminally investigate or prosecute any alcohol or drug abuse patient.[facility] the event this information is protected by the Federal Confidentiality of Alcohol and Drug Abuse Patient Records regulations: The Federal rules restrict any use of the information to criminally investigate or prosecute any alcohol or drug abuse patient.[facility] the event this information is protected by the Federal Confidentiality of Alcohol and Drug Abuse Patient Records regulations: The Federal rules restrict any use of the information to criminally investigate or prosecute any alcohol or drug abuse patient.[facility] the event this information is protected by the Federal Confidentiality of Alcohol and Drug Abuse Patient Records regulations: The Federal rules restrict any use of the information to criminally investigate or prosecute any alcohol or drug abuse patient.[facility] the event this information is protected by the Federal Confidentiality of Alcohol and Drug Abuse Patient Records regulations: The Federal rules restrict any use of the information to criminally investigate or prosecute any alcohol or drug abuse patient.[facility] the event this information is protected by the Federal Confidentiality of Alcohol and Drug Abuse Patient Records regulations: The Federal rules restrict any use of the information to criminally investigate or prosecute any alcohol or drug abuse patient.[facility] the event this information is protected by the Federal Confidentiality of Alcohol and Drug Abuse Patient Records regulations: The Federal rules restrict any use of the information to criminally investigate or prosecute any alcohol or drug abuse patient.[facility] the event this information is protected by the Federal Confidentiality of Alcohol and Drug Abuse Patient Records regulations: The Federal rules restrict any use of the information to criminally investigate or prosecute any alcohol or drug abuse patient.[facility] the event this information is protected by the Federal Confidentiality of Alcohol and Drug Abuse Patient Records regulations: The Federal rules restrict any use of the information to criminally investigate or prosecute any alcohol or drug abuse patient.[facility] the event this information is protected by the Federal Confidentiality of Alcohol and Drug Abuse Patient Records regulations: The Federal rules restrict any use of the information to criminally investigate or prosecute any alcohol or drug abuse patient.[facility] the event this information is protected by the Federal Confidentiality of Alcohol and Drug Abuse Patient Records regulations: The Federal rules restrict any use of the information to criminally investigate or prosecute any alcohol or drug abuse patient.[facility] the event this information is protected by the Federal Confidentiality of Alcohol and Drug Abuse Patient Records regulations: The Federal rules restrict any use of the information to criminally investigate or prosecute any alcohol or drug abuse patient.[facility] the event this information is protected by the Federal Confidentiality of Alcohol and Drug Abuse Patient Records regulations: The Federal rules restrict any use of the information to criminally investigate or prosecute any alcohol or drug abuse patient.[facility] the event this information is protected by the Federal Confidentiality of Alcohol and Drug Abuse Patient Records regulations: The Federal rules restrict any use of the information to criminally investigate or prosecute any alcohol or drug abuse patient.[facility] the event this information is protected by the Federal Confidentiality of Alcohol and Drug Abuse Patient Records regulations: The Federal rules restrict any use of the information to criminally investigate or prosecute any alcohol or drug abuse patient.[facility] the event this information is protected by the Federal Confidentiality of Alcohol and Drug Abuse Patient Records regulations: The Federal rules restrict any use of the information to criminally investigate or prosecute any alcohol or drug abuse patient.[facility] the event this information is protected by the Federal Confidentiality of Alcohol and Drug Abuse Patient Records regulations: The Federal rules restrict any use of the information to criminally investigate or prosecute any alcohol or drug abuse patient.[facility] the event this information is protected by the Federal Confidentiality of Alcohol and Drug Abuse Patient Records regulations: The Federal rules restrict any use of the information to criminally investigate or prosecute any alcohol or drug abuse patient.[facility] Reason for Visit (unrecogniz ed section and content) Reason Comments Blood Pressure Check Specialty Diagnoses / Procedures Referred By Aniket handy Referred To Contact [facility] DEPARTMENT Diagnoses physical Procedures physical est care [place] [facility] [place] [address] Referral ID Status Reason Start Date Expiration Date Visits Requested Visits Authorized [id number] Authorized Financial Clearance Required - Self Pay Patient Cleared - Qualified HCAP/501/FA 03/03/2024 06/01/2024 99 99 Reason Comments Consult [facility] P:t Outreach F/ U Reason Onset Date Comments Refill Request 04/08/2022 Reason Onset Date Comments Refill Request 07/14/2022 Reason Onset Date Comments Refill Request 11/12/2022 Reason Comments Refill Request Reason Comments Physical Reason Comments Results Reason Onset Date Comments Refill Request 07/12/2024 Reason Onset Date Comments Refill Request 10/05/2024 Reason Onset Date Comments Refill Request 01/04/2025 Reason Comments Derm Problem Areas on top and radha e of head (states he has had them his whole life) area on top of head recently opened and draining x 1 week Reason Comments feels like a pulled muscle in his abdome n X 1 week Specialty Diagnoses / Procedures Referred By Aniket handy Referred To Contact [facility] DEPARTMENT Diagnoses All medical Procedures All medical [place] [facility] [place] [address] Referral ID Status Reason Start Date Expiration Date Visits Requested Visits Authorized [id number] Authorized Financial Clearance Required - Self Pay Patient Cleared - Qualified HCAP/FA 02/03/2025 05/04/2025 99 99 Reason Onset Date Comments Refill Request 04/03/2025 Care Teams (unrecognized sec tion and content) Bean Viner Relationship Specialty Start Date End Date Guilherme Villatoro APRN.ADJUNCT LECTURER, DNP [address] [place] [address] PCP - General Family Practice 01/09/21 Bean Viner Relationship Specialty Start Date End Date Guilherme Villatoro, 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.ADJUNCT LECTURER, DNP [address] [place] [address] PCP - General Family Practice 01/09/21 Bean Viner Relationship Specialty Start Date End Date Guilherme Villatoro, RAVI.ADJUNCT LECTURER, DNP [address] [place] [address] PCP - General Family Practice 01/09/21 08/07/22 Team Status: Active Member Role Status Dates Dr. Louie Funk MD Family Provider Active No Primary Care Physician Primary Care Provider Active Team Status: Inactive Member Role Status Dates No Primary Care Physician Primary Care Provider Active Dr. Jeremy Garcia DO Emergency Provider Active Team Status: Inactive Member Role Status Dates No Primary Care Physician Primary Care Provider Active Dr. Bobby Alarcon DO Emergency Provider Active Team Status: Inactive Member Role Status Dates No Primary Care Physician Primary Care Provider Active Dr. Bobby Alarcon , Attending Provider, Emergency Provider Active Team Status: Inactive Member Role Status Dates No Primary Care Physician Primary Care Provider Active Dr. Jeison Lennon MD Emergency Provider Active Bean Viner Relationship Specialty Start Date End Date Don Sullivan MD [address] [place] [address] PCP - General Family Medicine 03/18/24 Bean Viner Relationship Specialty Start Date End Date Don Sullivan MD [address] [place] [address] PCP - General Family Medicine 03/18/24 Bean Viner Relationship Specialty Start Date End Date Don Sullivan MD [address] [place], [place] [address] [phone] PCP - General Family Medicine 03/18/24 Bean Viner Relationship Specialty Start Date End Date Don Sullivan MD [address] [place], [place] [address] [phone] PCP - General Family Medicine 03/18/24 Bean Viner Relationship Specialty Start Date End Date oDn Sullivan MD [address] [place] [address] PCP - General Family Medicine 03/18/24 Bean Viner Relationship Specialty Start Date End Date Don Sullivan MD [address] [place] [address] PCP - General Family Medicine 03/18/24 Podlogar, BLANCA PugaN.ADJUNCT LECTURER [address] [place] [address] [employer] [facility] Family [facility] 10/31/24 Bean Viner Relationship Specialty Start Date End Date Don Sullivan MD [address] [place] [address] PCP - General Family Medicine 03/18/24 Podlogar, Vivien, 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.ADJUNCT LECTURER [address] [place] [address] [employer] [facility] 10/31/24 Bean Viner Relationship Specialty Start Date End Date Don Sullivan MD [address] [place] [address] PCP - General Family Medicine 03/18/24 Podlogar, Vivien, 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.ADJUNCT LECTURER [address] [place] [address] [employer] [facility] 10/31/24 Bean Viner Relationship Specialty Start Date End Date Don Sullivan MD [address] [place] [address] PCP - General Family Medicine 03/18/24 PodlogarVivien APRN.ADJUNCT LECTURER [address] [place], [place] [address] [facility]24 Nehemiah Dang APRN.ADJUNCT LECTURER [address] [place], [place] [id number] [facility] Team Status: Active Member Role Status Dates Vivien Podlogar RAILROAD DINING CAR STEWARD/STEWARDESS, RAILROAD DINING CAR STEWARD/STEWARDESS-C Primary Care Provider Active Team Status: Inactive Member Role Status Dates Vivien Podlogar RAILROAD DINING CAR STEWARD/STEWARDESS, RAILROAD DINING CAR STEWARD/STEWARDESS-C Primary Care Provider Active Start: October 10, 2024 End: October 10, 2024 Dr. Magen Chávez DO Attending Provider Active Start: October 10, 2024 End: October 10, 2024 Dr. Magen Chávez DO Emergency Provider Active Start: October 10, 2024 End: October 10, 2024 Team Status: Inactive Member Role Status Dates Vivien Podlogalvaro RAILROAD DINING CAR STEWARD/STEWARDESS, RAILROAD DINING CAR STEWARD/STEWARDESS-C Primary Care Provider Active Start: January 26, 2025 End: January 26, 2025 Dr. Guilherme Callahan DO Emergency Provider Active Start: January 26, 2025 End: January 26, 2025 Team Status: Inactive Member Role Status Dates Vivien Podlogalvaro RAILROAD DINING CAR STEWARD/STEWARDESS, RAILROAD DINING CAR STEWARD/STEWARDESS-C Primary Care Provider Active Start: February 02, 2025 End: February 02, 2025 Dr. Antonio Ortiz MD Emergency Provider Active S tart: February 02, 2025 End: February 02, 2025 Bean Viner Relationship Specialty Start Date End Date Don Sullivan MD [address] [place], [place] [address] PCP - General Family Medicine 03/18/24 PodlogarVivien APRN.ADJUNCT LECTURER [address] [place], [place] [id number] [facility]24 Nehemiah Dang APRN.ADJUNCT LECTURER [address] [place], [place] [address] [facility] 02/05/25 02/14/25 Nehemiah Dang APRN.ADJUNCT LECTURER [address] [place], [place] [id number] [facility] 02/15/25 Bean Viner Relationship Specialty Start Date End Date Don Sullivan MD [address] [place], [place] [address] PCP - General Family Medicine 03/18/24 PodlogarVivien APRN.ADJUNCT LECTURER [address] [place], [place] [id number] [facility] 10/31/24 Nehemiah Dang APRN.ADJUNCT LECTURER [address] [place], [place] [id number] [facility] 02/15/25 Goals (unrecognized section and content) Goals may be documented in a n alternate sectionGoals may be documented in an alternate sectionGoals may be documented in an alternate sectionGoals may be documented in an alternate sectionGoals may be documented in an alternate sectionGoals may be documented in an alternate sectionGoals may be documented in an alternate sectionGoals may be documented in an alternate sectionGoals may be documented in an alternate section (unrecognized sect ion and content) No Status Records FoundNo Status Records Found INFORMATION SOURCE (unrecogn ized section and content) DATE CREATED AUTHOR 02/11/2025 [facility] DATE CREATED AUTHOR AUTHOR'S SHELIA TAYLOR 02/13/2025 [facility] FOR RECORDS PERTAINING TO PATIENTS WHO ARE [...] BE BASED ON THE PRIMARY CLINICAL RECORDS. [employer] [facility]. provides no warranty or guarantee of the accuracy or completeness of information in this document.
[2025-04-30] MEDS: 0.9% Normal Saline (1000mL) 1,000 ML 999 ML IV (20:35)
--- NOTE | 2025-04-30 20:40 | CT_ITS ---
EXAM: CT Abdomen and Pelvis With Intravenous Contrast CLINICAL INDICATION: LUQ ABDOMINAL PAIN AFTER SWALLOWING TECHNIQUE: Axial computed tomography images of the abdomen and pelvis with intravenous contrast. This CT exam was performed using one or more of the following dose reduction techniques: automated exposure control, adjustment of the mA and/or kV according to patient size, and/or use of iterative reconstruction technique. COMPARISON: CT Abdomen Pelvis dated 01/26/2025 FINDINGS: LUNG BASES: Unremarkable. No mass. No consolidation. ABDOMEN: LIVER: Fatty infiltration of the liver. GALLBLADDER AND BILE DUCTS: Unremarkable. No calcified stones. No ductal dilation. PANCREAS: Unremarkable. No mass. No ductal dilation. SPLEEN: Unremarkable. No splenomegaly. ADRENALS: Unremarkable. No mass. KIDNEYS AND URETERS: Unremarkable. No solid mass. No hydronephrosis. STOMACH AND BOWEL: Unremarkable. No obstruction. No mucosal thickening. PELVIS: APPENDIX: No findings to suggest acute appendicitis. BLADDER: Unremarkable. No mass. REPRODUCTIVE: Unremarkable as visualized. 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 No free air. No significant fluid collection. BONES/JOINTS: No acute fracture. No dislocation. SOFT TISSUES: Unremarkable. VASCULATURE: Unremarkable. No abdominal aortic aneurysm. LYMPH NODES: Unremarkable. No enlarged lymph nodes. 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 Reading Location: [facility]
[2025-04-30 21:01] LABS: Absolute Lymphocyte Count 2.76 X10^3/uL (0.83-4.51); Absolute Neutrophil Count 6.3 X10^3/uL (2.0-7.7); Basophil# 0.06 X10^3/uL; Basophil% 0.6 % (0-1); Eosinophil# 0.11 X10^3/uL; Eosinophils% 1.1 % (0-5); Hematocrit 41.4 % (40-54); Hemoglobin 14.5 g/dL (13.0-16.5); Lymphocyte # 2.76 X10^3/ul (0.83-4.51); Lymphocyte % 26.7 % (19-41); Mean Corpuscular Hgb 31.7 pg (27.0-32.0); Mean Corpuscular Volume 90.4 fL (80-94); Mean Platelet Vol. 8.7 fl (6.2-12.0); Monocyte# 1.07 X10^3/uL; Monocyte% 10.3 % (0-10); NRBC Flagged by Analyzer 0 % (0-5); Neutrophil % 60.9 % (47-70); Platelet Count 347 K/mm3 (150-450); RBC Distribution Width CV 12.4 % (11.6-14.6); RBC Distribution Width SD 40.6 fl (35.1-43.9); Red Blood Count 4.58 M/mm3 (4.6-6.2); White Blood Count 10.3 K/mm3 (4.4-11.0)
[2025-04-30 21:25] LABS: ALB/GLOB Ratio 1.5 RATIO (0.9-2.4); AST(SGOT) 26 U/L (<=37); Alanine Aminotransfer ALT/SGPT 34 U/L (<=46); Albumin, Serum 4.4 g/dL (3.5-5.0); Alkaline Phosphatase 92 U/L (40-129); Anion Gap 12 (5-15); BUN 14 mg/dL (4-19); BUN/Creat Ratio 13.4 RATIO (10-20); Calcium,Total 9.4 mg/dL (7.6-11.0); Carbon Dioxide 22.3 mmol/L (21.0-32.0); Chloride 103 mmol/L (98-108); Creatinine, Serum 1.03 mg/dL (0.70-1.20); EST Glomerular Filtration Rate 92 (>60); Estimated Creatinine Clearance 88.98 ml/min (50-250); Glucose 103 mg/dL (70-99); Lipase 33 U/L (13-75); Potassium 3.8 mmol/L (3.3-5.1); Protein, Total 7.4 g/dL (5.9-8.4); Sodium Level 137 mmol/L (133-145); Total Bilirubin 0.67 mg/dL (0.00-1.30)
[2025-04-30 22:00] VITALS: BP 144/68; PULSE 82; RESP 16; O2SAT 100
[2025-04-30 22:56] VITALS: BP 123/64; PULSE 78; RESP 16; TEMP 36.6; O2SAT 97
== END 2025-04-30 22:56 | disposition home or self-care (01) ==
PROVIDERS: Emergency Provider Emergency Medicine; PCP Nurse Practitioner Primary Care; Visit Provider Emergency Medicine
DX: K92.2 Gastrointestinal hemorrhage, unspecified (principal); Z87.891 Personal history of nicotine dependence; I10 Essential (primary) hypertension; R11.10 Vomiting, unspecified; R10.12 Left upper quadrant pain
CPT/HCPCS: 74177; 80048; 80053; 83690; 85025; 96360; 99283; Q9967; A4216; J2405

== ENCOUNTER 2025-06-18 20:25 | Emergency (ER) | payer SELFPAY ==
[2025-06-18 20:25] VITALS: BP 139/85; PULSE 103; RESP 16; TEMP 36.6; O2SAT 96; BMI 37.1
--- NOTE | 2025-06-18 21:09 | EKG12_ITS ---
Test Reason : CP Blood Pressure : */* mmHG Vent. Rate : 104 BPM Atrial Rate : 104 BPM P-R Int : 128 ms QRS Dur : 88 ms QT Int : 318 ms P-R-T Axes : 61 77 19 degrees QTcB Int : 418 ms Sinus tachycardia Otherwise normal ECG Confirmed by MAXIM PEÑALOZA, JORDI ([id number]), editor sound ARCELIA SCHMIDT ([id number]) on 06/21/2025 8:33:08 AM Referred By: Confirmed By: JORDI PAN MD
--- NOTE | 2025-06-18 21:13 | ED.VIS.CHEST ---
HPI History of Present Illness Chief Complaint: Chest Pain Informant: patient Narrative Narrative: 44-year-old male presenting with chest pain has been going on for the last several hours intermittently, relatively brief but severe at times right sided chest pain without radiation. He states it for started when he reached across the counter for some pizza toppings while he was making a pizza at work. He denies any dyspnea, near syncope, palpitations, but he has had an occasionally productive cough for the last week without hemoptysis. Occasionally will have coughing fits with this, but when he is not coughing he denies dyspnea, and no chest pain until today. He does not have any discomfort right now. When he takes a deep breath it does not cause any. He denies any leg pain or swelling recently or history of DVT or PE. [facility] Medical History (Updated 06/18/25 @ 23:[address] Rohit Bryant MD) Hyperlipidemia Irregular heart beat HTN (hypertension) Home Medications Medication Instructions Recorded Last Taken Type lisinopril 10 mg tablet 10 mg PO DAILY blood pressure #30 11/14/22 Unknown Rx tabs ondansetron 4 mg disintegrating 4 mg PO Q8H PRN PRN Nausea #10 tabs 04/30/25 Unknown Rx tablet Allergy/AdvReac Type Severity Reaction Status Date / Time morphine AdvReac Upset Verified 06/18/25 20:27 Stomach naproxen AdvReac Upset Verified 06/18/25 20:27 Stomach Surgical History History of dental surgery Social History housing: house Smoking Status: Former smoker substance use type: does not use ROS ROS ED Constitutional Constitutional ED: Denies chills or fever(s) Eyes Eyes: Denies change in vision or diplopia ENT ENT ED: Denies rhinorrhea or sore throat Cardiovascular Cardiovascular: Reports chest pain; Denies palpitations Respiratory/Chest Respiratory/Chest: Reports cough and sputum; Denies dyspnea Gastrointestinal Gastrointestinal: Reports nausea; Denies abdominal pain, diarrhea or vomiting Genitourinary Genitourinary ED: Denies dysuria or hematuria Musculoskeletal Musculoskeletal: Denies back pain or neck pain Integumentary Denies abscess or rash Neurologic Neurologic: Denies headache(s), paresthesias or weakness Psychiatric Psychiatric: Denies suicidal thoughts EXAM Physical Exam Const Vital Signs: 06/18/25 20:25 06/18/25 20:46 06/18/25 21:16 Temperature 97.9 F Temperature Source Temporal Pulse Rate 103 H Respiratory Rate 16 Respiratory Effort Normal Non-Labored Blood Pressure 139/85 H Blood Pressure Mean 103 Pulse Ox 96 100 Oxygen Delivery Method Room Air Room Air 06/18/25 22:25 Temperature Temperature Source Pulse Rate 80 Respiratory Rate Respiratory Effort Blood Pressure 100/60 Blood Pressure Mean 73 Pulse Ox 99 Oxygen Delivery Method Positive well nourished and well developed General Appearance ED: well developed and NAD HEENT Reports moist mucous membranes normocephalic and atraumatic Eyes PERRL and EOMs intact bilaterally Neck full ROM and supple Resp normal respiratory effort and clear to auscultation bilaterally Resp Narrative: No splinting with deep inspiration. Conversive in full sentences. Cardio regular rate, regular rhythm and no murmurs GI non-tender and non-distended Auscultation: normoactive bowel sounds Palpation: soft Back/Spine no CVA tenderness General Back: other FROM Extremity normal to inspection Extremity Narrative: No calf tenderness bilaterally or edema. General Extremety ED: Negative for edema, pulses abnormal or tenderness General Extremity: Negative for edema or pulses abnormal Neuro oriented x3, CN's II-XII intact bilaterally and no sensory deficits noted Sensorium / Orientation: awake and alert Motor Exam: strength 5/5 throughout Skin no rashes or lesions noted and no wounds Heart Score History: Slightly/Non-Suspicious ECG: Normal Age: </= 45 years Risk Factors: 1 or 2 Risk Factors Troponin: </= Normal Limit Score: 1 MDM MDM MDM Narrative Medical decision making narrative: Patient is without any discomfort right now. States has been coughing a lot lately. 1 view chest x-ray on my interpretation shows no mediastinal widening or pneumonia or pneumothorax. Radiology in agreement it is unremarkable. His EKG is normal and his labs are normal including a troponin that is less than 6. Given that, I do not think we need to do multiple measurements, this is an atypical story that is less likely to be cardiac in the first place. Considerations include musculoskeletal etiologies such as a chest wall strain, esophageal etiologies such as esophageal spasm, reflux. Given ideas of [id number] medications to take if he has recurrent symptoms he is comfortable with this plan of following up as needed. Lab Data Attestation: I reviewed the patient's lab results. Labs: Laboratory Results - last 24 hr 06/18/25 20:46 WBC 10.9 RBC 4.62 Hgb 14.6 Hct 41.4 MCV 89.6 MCH 31.6 MCHC 35.3 RDW Std Deviation 39.7 RDW Coeff of Lior 12.3 Plt Count 353 MPV 8.9 Immature Gran % (Auto) 0.400 Neut % (Auto) 57.8 Lymph % (Auto) 27.8 [place] % (Auto) 11.8 H Eos % (Auto) 1.6 Baso % (Auto) 0.6 Absolute Neuts (auto) 6.3 Absolute Lymphs (auto) 3.02 Nucleated RBC % 0 Sodium 135 Potassium 3.6 Chloride 99 Carbon Dioxide 21.0 Anion Gap 14 BUN 18 Creatinine 1.07 Estim Creat Clear Calc 86.72 Est GFR (MDRD) Non-Af 88 BUN/Creatinine Ratio 17.0 Glucose 110 H Calcium 9.5 Troponin T High Sens < 6 Radiography Diagnostic Testing: Clinical Impression(s) from Imaging Studies Chest X-Ray 06/18/25 21:20 IMPRESSION: No acute cardiopulmonary disease. Reading Location: [facility] Rhythm Strip Rhythm Strip: Sinus Rhythm Rate: 99 Ectopy: None EKG Initial EKG: Attestation: I personally reviewed and interpreted this EKG as follows: Interpretation: Sinus Rhythm and No Acute Injury Pattern Comments: Nml axis & intervals; nml EKG Discharge Plan Triage Chief Complaint: Chest Pain ED Provider: Rohit Bryant Dx/Rx/DC Orders Clinical Impression: Right-sided chest pain, URI (upper respiratory infection) Instructions: ED Chest Pain, Noncardiac Prescriptions: No Action lisinopril 10 mg tablet 10 mg PO DAILY Qty: 30 0RF ondansetron 4 mg tablet,disintegrating 4 mg PO Q8H PRN PRN (Reason: Nausea) Qty: 10 0RF Primary Care Provider: Vivien Gustafson NP Referrals: Vivien Gustafson NP, COMPASS OPERATOR-C [Primary Care Provider] - 1 Week if not improving Print Language: Occitan Disposition Disposition: Home, Self Care
--- OUTSIDE RECORDS SUMMARY | 2025-06-18 21:13 | XMS RPT_ITS | CCD ---
Author Organization [facility] Care Team Providers Care Proctologist Name Role Phone Mili EMERGENCY WORKER.YUNG, Guilherme SAWYER Primary Care Provider Unavailable Primary Care Provider Unavailabl e Care Physician, No Primary Primary Care Provider Unavailable Dr. Yfn Lugo Attending Provider Dr. Jeison Lennon Referring Provider Curt Sullivan MD Primary Care Provider Podlogar EMERGENCY WORKER.Vivien BARRAGAN Unavailable Kndavid EMERGENCY WORKER.Nehemiah BARRAGAN Unavailable SHAHANA VASQUEZ Referring Unavailable WILEY SULLIVANOPHER B Primary Care Unavailab le SELF Referring Unavailable WILEY SULLIVANOPHVI B Primary Care Unavailab le PODLOGAR, VIVIEN Attending Unavailable GUILHERME VILLATORO Primary Care Unavailable PODLOGAR, VIVIEN Referring Unavailable HARRISONLEY, CHRISTOPHER B Primary Care Unavailab le PODLOGAR, VIVIEN Attending Unavailable HANSEL, CHRISTOPHER B Primary Care Unavailab le PODLOGAR, VIVIEN Referring Unavailable HANSEL, CHRISTOPHER B Primary Care Unavailab le BURSSHILPA, CHRISTOPHER B Primary Care Unavailab le BURSSHILPA, CHRISTOPHER B Primary Care Unavailab le Podlogar INTERNATIONAL LOGISTICS COORDINATOR-CVivien Primary Care Provider Dr. Magen Chávez DO Attending Provider Dr. Magen Chávez DO Emergency Provider Dr. Guilherme Callahan DO Emergency Provider Dr. Antonio Ortiz MD Emergency Provider Katy EMERGENCY WORKER.Nehemiah BARRAGAN Unavailable Katy EMERGENCY WORKER.Nehemiah BARRAGAN Unavailable Podlogar INTERNATIONAL LOGISTICS COORDINATOR-C, Vivien Primary Care Provider Dr. Guilherme Callahan DO Attending Provider [phone] Angel PEÑALOZA, Dr. Alvarez Attending Provider [phone] Dr. Carlos Zavala DO Emergency Provider Antonio Ortiz Attending Unavailable Podlogar INTERNATIONAL LOGISTICS COORDINATOR, Vivien Primary Care Unavailable Guilherme Callahan Attending Unavailable Podlogar INTERNATIONAL LOGISTICS COORDINATOR, Vivien Primary Care Unavailable Magen Chávez Attending Unavailable Podlogar INTERNATIONAL LOGISTICS COORDINATOR, Vivien Primary Care Unavailable Podlogar INTERNATIONAL LOGISTICS COORDINATOR, Vivien Primary Care Unavailable Carlos Zavala Attending Unavailable Allergies Allergy Classification Reported Allergen(s) Allergy Type Date of Onset Reaction(s) Facility (20 sources) Morphine; Translations: [MORPHINE] Drug Allergy 09-01-2021 Vomiting [facility] Work Phone: (20 sources) Naproxen; Translations: [NAPROXEN] Drug Allergy 01-25-2009 GI Upset [facility] Work Phone: (1 source) Morphine Drug Allergy 04-30-2025 [facility] Repository (1 source) Naproxen Drug Allergy 04-30-2025 [facility] Repository Medications Current Medications Medication Drug Class(es) Dates Sig (Normalized) Sig (Original) doxycycline hyclate 100 mg oral tablet (4 sources) Tetracycline-clas s Drug Start: 02-02-2025 End: 02-09-2025 take 1 tablet by mouth twice daily doxycycline (VIBRA-TABS) 100 mg tablet Indications: Acute cough Take 1 tablet by mouth two times a day for 7 days. 14 tablet 02/02/2025 02/09/2025 Active ondansetron 4 mg disintegrating oral tablet (5 sources) Serotonin-3 Receptor Antagonist Start: 04-30-2025 take 1 tablet by mouth every eight hours as needed for nausea Ondansetron 4 mg tablet,disintegra ting Active 4 mg PO EVERY 8 HOURS NEEDED as needed for Nausea April 30, 2025 12:00am Start: 09-24-2023 End: 01-26-2025 take 1 tablet by mouth every eight hours as needed for nausea Ondansetron 4 mg tablet,disintegrating Discontinued 4 mg PO EVERY 8 HOURS NEEDED as needed for Nausea September 24, 2023 12:00am January 26, 2025 8:00am pantoprazole 40 mg delayed release oral tablet [...] (Original) dicyclomine hydrochloride 10 mg oral capsule (2 sources) Anticholinergic Start: 10-10-2024 End: 01-26-2025 take 1 capsule by mouth three times daily as needed for pain Dicyclomine 10 mg capsule Discontinued 10 mg PO THREE TIMES A DAY as needed for abdominal pain 10 28October 10, 2024 11:36pm January 26, 2025 8:00am lisinopril 10 mg oral tablet (20 sources) Angiotensin Converting Enzyme Inhibitor Start: 01-03-2022 End: 2025 take 1 tablet by mouth once daily Lisinopril 10 mg tablet Discontinued 10 mg PO DAILY December 26, 2023 1:00am January 26, 2025 8:00am Comment on above: Take 1 tablet by patti th once daily. For blood pressure Problems Active Problems Problem Classification Problem Date Documented Da te Episodic/Chronic Abdominal pain (20 sources) Right upper quadrant pain; Translations: [Right upper quadrant pain] Onset: 12-06-2020 Episodic Administrative/social admission (11 sources) Repeated prescription; Translations: [Encounter for issue of repeat prescription] 04-06-2023 Episodic Cardiac dysrhythmias (20 sources) Palpitations; Translations: [Palpitations] 11-14-2022 Episodic Conditions associated with dizziness or vertigo (20 sources) Dizziness; Translations: [Dizziness and giddiness] 07-12-2020 Episodic Disorders of teeth and jaw (10 sources) Dental abscess; Translations: [Periapical abscess without sinus] 07-13-2021 Episodic Essential hypertension (20 sources) Essential hypertension; Translations: [Essential (primary) hypertension] Onset: 2 02-06-2022 Chronic Fever of unknown origin (10 sources) Fever; Translations: [Fever, unspecified] 02-23-2022 Episodic Fluid and electrolyte disorders (10 sources) Acute hyponatremia; Translations: [Hypo-osmolality and hyponatremia] 02-23-2022 Episodic Gastrointestinal hemorrhage (1 source) Gastrointestinal hemorrhage, unspecified; Translations: [Gastrointestinal hemorrhage, unspecified] Onset: 5 Episodic Intracranial injury (9 sources) Concussion injury of brain; Translations: [Concussion with loss of consciousness of unspecified duration, initial encounter] 06-10-2022 Episodic Malaise and fatigue (10 sources) Malaise and fatigue; Translations: [Other malaise] Onset: 4 07-07-2022 Episodic Nonspecific chest pain (20 sources) Atypical chest pain; Translations: [Other chest pain] 12-06-2020 Episodic Other circulatory disease (18 sources) Elevated blood pressure; Translations: [Elevated blood-pressure reading, without diagnosis of hypertension] 12-06-2020 Episodic Other connective tissue disease (10 sources) Pain in calf; Translations: [Pain in right lower leg] 07-09-2020 Episodic Other gastrointestinal disorders (20 sources) Constipation; Translations: [Constipation, unspecified] 04-06-2023 Episodic Other gastrointestinal disorders (6 sources) Acute diarrhea; Translations: [Diarrhea, unspecified] 11-22-2022 Episodic Other injuries and conditions due to external causes (10 sources) Closed injury of head; Translations: [Unspecified injury of head, initial encounter] 02-04-2022 Episodic Other injuries and conditions due to external causes (8 sources) Effects of heat; Translations: [Effect of heat and light, unspecified, initial encounter] 07-07-2022 Episodic Other liver diseases (2 sources) Increased bilirubin level; Translations: [Unspecified jaundice] 03-24-2024 Episodic Other lower respiratory disease (10 sources) Dyspnea on exertion; Translations: [Shortness of breath] 01-11-2022 Episodic Other lower respiratory disease (18 sources) Cough; Translations: [Cough] 02-23-2022 Episodic Other lower respiratory disease (2 sources) Cough; Translations: [Acute cough] 02-02-2025 Episodic Other nutritional; endocrine; and metabolic disorders (18 sources) Obese class I; Translations: [Obesity, unspecified] Onset: 2 02-06-2022 Chronic Other nutritional; endocrine; and metabolic disorders (1 source) Excessive thirst; Translations: [Polydipsia] 03-18-2024 Episodic Other skin disorders (2 sources) Cyst of skin; Translations: [Follicular cyst of the skin and subcutaneous tissue, unspecified] 02-02-2025 Episodic Spondylosis; intervertebral disc disorders; other back problems (8 sources) Low back pain; Translations: [Low back pain] 07-07-2022 Episodic Sprains and strains (13 sources) Strain of thoracic region; Translations: [Strain of muscle and tendon of unspecified wall of thorax, initial encounter] 02-24-2022 Episodic Unclassified (1 source) feels like a pulled muscle in his abdomen Onset: 5 Unclassified (1 source) Acute cough; Translations: [Acute cough] Onset: 5 Past or Other Problems Problem Classification Problem Date Documented Da te Episodic/Chronic Genitourinary symptoms and ill-defined conditions (2 sources) Polyuria; Translations: [Polyuria] Onset: 03-21-2024 03-18-2024 Episodic Other liver diseases (1 source) Unspecified jaundice; Translations: [Elevated bilirubin] Onset: 04-15-2024 Episodic Other nutritional; endocrine; and metabolic disorders (1 source) Polydipsia; Translations: [Polydipsia] Onset: 03-21-2024 Episodic Other screening for suspected conditions (not mental disorders or infectious disease) (2 sources) Patient encounter status; Translations: [Encounter for screening for lipoid disorders] Onset: 03-21-2024 03-18-2024 Episodic Results Test Name Value Interpretation Reference Range Facility Abdomen/Pelvis W IV Cont ONL Yon 04-30-2025 Abdomen/Pelvis W IV Cont ONLY [facility] Imaging Services [address] [place] [address] Abdomen/Pelvis W IV Cont ONLY MR#: [id number] Acct: [id number] Name: ARTIE CABRERA Rep #: [id number] : 1980 M 44 From: Ranjit Garcia MD PCP: Vivien Gustafson, INTERNATIONAL LOGISTICS COORDINATOR-C Status: [facility] ER Study: Abdomen/Pelvis W IV Cont ONLY Date of Exam: Exam# [id number] Ordering Dr: Carlos Zavala DO EXAM: CT Abdomen and Pelvis With Intravenous Contrast CLINICAL INDICATION: LUQ ABDOMINAL PAIN AFTER SWALLOWING TECHNIQUE: Axial computed tomography images of the abdomen and pelvis with intravenous contrast. This CT exam was performed using one or more of the following dose reduction techniques: automated exposure control, adjustment of the mA and/or kV according to patient size, and/or use of iterative reconstruction technique. COMPARISON: CT Abdomen Pelvis dated 01/26/2025 FINDINGS: LUNG BASES: Unremarkable. No mass. No consolidation. ABDOMEN: LIVER: Fatty infiltration of the liver. GALLBLADDER AND BILE DUCTS: Unremarkable. No calcified stones. No ductal dilation. PANCREAS: Unremarkable. No mass. No ductal dilation. SPLEEN: Unremarkable. No splenomegaly. ADRENALS: Unremarkable. No mass. KIDNEYS AND URETERS: Unremarkable. No solid mass. No hydronephrosis. STOMACH AND BOWEL: Unremarkable. No obstruction. No mucosal thickening. PELVIS: APPENDIX: No findings to suggest acute appendicitis. BLADDER: Unremarkable. No mass. REPRODUCTIVE: Unremarkable as visualized. 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 No free air. No significant fluid collection. BONES/JOINTS: No acute fracture. No dislocation. SOFT TISSUES: Unremarkable. VASCULATURE: Unremarkable. No abdominal aortic aneurysm. LYMPH NODES: Unremarkable. No enlarged lymph nodes. 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 Reading Location: [facility] CC: INTERNATIONAL LOGISTICS COORDINATOR-C Vivien Gustafson; Dr. Carlos Zavala DO Entry Level Manager: Signed Normal [facility] Absolute lymphocyte countOrd ered By: Carlos Zavala on 04-30-2025 Lymphocytes Auto (Unsp spec) [#/Vol] 2.76 10*3/uL 0.83-4.51 [facility] Absolute neutrophil countOrd ered By: Carlos Zavala on 04-30-2025 Neutrophils (Bld) [#/Vol] 6.3 10*3/uL 2.0-7.7 [facility] Anion gap in Serum or Plasma Ordered By: Carlos Zavala on 04-30-2025 Anion gap [Moles/Vol] 12 mmol/L 5- [facility] Automated lymphocyte count a s percentage of total leukocytesOrdered By: Carlos Zavala on 04-30-2025 Lymphocytes/100 WBC Auto (Unsp spec) 26.7 % [facility] BUN/creatinine ratioOrdered By: Carlos Zavala on 04-30-2025 Urea nitrogen/Creatinine [Mass ratio] 13.4 mg/mg - [facility] Basic Metabolic Profile (BMP )on 04-30-2025 BUN/CRE 13.4 RATIO Normal - [facility] Comment on above: Performed By: #### L 100.0100, L501.2450, L500.4050, L500.2500 #### [facility] [address] [place], [address] Calcium [Mass/Vol] 9.4 mg/dL Normal 7.6-11.0 [facility] Comment on above: Performed By: #### L 100.0100, L501.2450, L500.4050, L500.2500 #### [facility] [address] [place], [address] Chloride [Moles/Vol] 103 mmol/L Normal 98-108 [facility] Comment on above: Performed By: #### L 100.0100, L501.2450, L500.4050, L500.2500 #### [facility] [address] [place], [address] CO2 [Moles/Vol] 22.3 mmol/L Normal 21.0-32.0 [facility] Comment on above: Performed By: #### L 100.0100, L501.2450, L500.4050, L500.2500 #### [facility] [address] [place], [address] Creatinine [Mass/Vol] 1.03 mg/dL Normal 0.70-1.20 [facility] Comment on above: Performed By: #### L 100.0100, L501.2450, L500.4050, L500.2500 #### [facility] [address] [place], [address] ECRCL 88.98 ml/min Normal 50-250 [facility] Comment on above: Performed By: #### L 100.0100, L501.2450, L500.4050, L500.2500 #### [facility] [address] [place], [address] GAP 12 Normal 5-15 [facility] Comment on above: Performed By: #### L 100.0100, L501.2450, L500.4050, L500.2500 #### [facility] [address] [place], [address] GFR/1.73 sq M.predicted among non-blacks MDRD (S/P/Bld) [Vol rate/Area] 92 mL/min/{1.73_m2} Normal >60 [facility] Comment on above: Result Comment: mL/m in/1.73m2 CKD-EPI Creatinine Equation (2020) Performed By: #### L 100.0100, L501.2450, L500.4050, L500.2500 #### [facility] [address] [place], [address] Glucose [Mass/Vol] 103 mg/dL High 70-99 [facility] Comment on above: Performed By: #### L 100.0100, L501.2450, L500.4050, L500.2500 #### [facility] [address] [place], [address] Potassium [Moles/Vol] 3.8 mmol/L Normal 3.3-5.1 [facility] Comment on above: Performed By: #### L 100.0100, L501.2450, L500.4050, L500.2500 #### [facility] [address] [place], [address] Sodium [Moles/Vol] 137 mmol/L Normal 133-145 [facility] Comment on above: Performed By: #### L 100.0100, L501.2450, L500.4050, L500.2500 #### [facility] [address] [place], [address] Urea nitrogen [Mass/Vol] 14 mg/dL Normal 4-19 [facility] Comment on above: Performed By: #### L 100.0100, L501.2450, L500.4050, L500.2500 #### [facility] [address] [place], [address] Basophil percentageOrdered B y: Carlos Zavala on 04-30-2025 Basophils/100 WBC (Bld) 0.6 % 0-1 [facility] Bilirubin, totalOrdered By: Carlos Zavala on 04-30-2025 Bilirubin [Mass/Vol] 0.67 mg/dL 0.00-1.30 [facility] CBC W/Diff, Automatedon Absolute Lymph 2.76 X10 3/uL Normal 0.83-4.51 [facility] Comment on above: Performed By: #### L 100.0100, L501.2450, L500.4050, L500.2500 #### [facility] [address] [place], [address] Absolute Neut 6.3 X10 3/uL Normal 2.0-7.7 [facility] Comment on above: Performed By: #### L 100.0100, L501.2450, L500.4050, L500.2500 #### [facility] [address] [place], [address] Basophils/100 WBC (Bld) 0.6 % Normal 0-1 [facility] Comment on above: Performed By: #### L 100.0100, L501.2450, L500.4050, L500.2500 #### [facility] [address] [place], [address] Eosinophils/100 WBC (Bld) 1.1 % Normal 0-5 [facility] Comment on above: Performed By: #### L 100.0100, L501.2450, L500.4050, L500.2500 #### [facility] [address] [place], [address] Erythrocyte distribution width (RBC) [Ratio] 12.4 % Normal 11.6-14.6 [facility] Comment on above: Performed By: #### L 100.0100, L501.2450, L500.4050, L500.2500 #### [facility] [address] [place], [address] Hematocrit (Bld) [Volume fraction] 41.4 % Normal 40-54 [facility] Comment on above: Performed By: #### L 100.0100, L501.2450, L500.4050, L500.2500 #### [facility] [address] [place], [address] Hemoglobin (Bld) [Mass/Vol] 14.5 g/dL Normal 13.0-16.5 [facility] Comment on above: Performed By: #### L 100.0100, L501.2450, L500.4050, L500.2500 #### [facility] [address] [place], [address] IG% 0.400 Normal 0.0-0.9 [facility] Comment on above: Result Comment: IG% - Immature Granulocytes (promyelocytes, myelocytes and metamyelocytes) > 1% indicates that a LEFT SHIFT is Present. Performed By: #### L 100.0100, L501.2450, L500.4050, L500.2500 #### [facility] [address] [place], [address] Lymphocytes/100 WBC (Bld) 26.7 % Normal 19-41 [facility] Comment on above: Performed By: #### L 100.0100, L501.2450, L500.4050, L500.2500 #### [facility] [address] [place], [address] MCH (RBC) [Entitic mass] 31.7 pg Normal 27.0-32.0 [facility] Comment on above: Performed By: #### L 100.0100, L501.2450, L500.4050, L500.2500 #### [facility] [address] [place], [address] MCHC (RBC) [Mass/Vol] 35.0 g/dL Normal 32-36 [facility] Comment on above: Performed By: #### L 100.0100, L501.2450, L500.4050, L500.2500 #### [facility] [address] [place], [address] MCV (RBC) [Entitic vol] 90.4 fL Normal 80-94 [facility] Comment on above: Performed By: #### L 100.0100, L501.2450, L500.4050, L500.2500 #### [facility] [address] [place], [address] Monocytes/100 WBC (Bld) 10.3 % High 0-10 [facility] Comment on above: Performed By: #### L 100.0100, L501.2450, L500.4050, L500.2500 #### [facility] [address] [place], [address] Neutrophils/100 WBC (Bld) 60.9 % Normal 47-70 [facility] Comment on above: Performed By: #### L 100.0100, L501.2450, L500.4050, L500.2500 #### [facility] [address] [place], [address] Nucleated RBC (Bld) [#/Vol] 0 10*3/uL Normal 0-5 [facility] Comment on above: Performed By: #### L 100.0100, L501.2450, L500.4050, L500.2500 #### [facility] [address] [place], [address] Platelet mean volume (Bld) [Entitic vol] 8.7 fL Normal 6.2-12.0 [facility] Comment on above: Performed By: #### L 100.0100, L501.2450, L500.4050, L500.2500 #### [facility] [address] [place], [address] Platelets (Bld) [#/Vol] 347 10*3/uL Normal 150-450 [facility] Comment on above: Performed By: #### L 100.0100, L501.2450, L500.4050, L500.2500 #### [facility] [address] [place], [address] RBC (Bld) [#/Vol] 4.58 10*6/uL Low 4.6-6.2 [facility] Comment on above: Performed By: #### L 100.0100, L501.2450, L500.4050, L500.2500 #### [facility] [address] [place], [address] RDW SD 40.6 fl Normal 35.1-43.9 [facility] Comment on above: Performed By: #### L 100.0100, L501.2450, L500.4050, L500.2500 #### [facility] [address] [place], [address] WBC (Bld) [#/Vol] 10.3 10*3/uL Normal 4.4-11.0 [facility] Comment on above: Performed By: #### L 100.0100, L501.2450, L500.4050, L500.2500 #### [facility] [address] [place], [address] Carbon dioxide, total [Moles /volume] in Central venous bloodOrdered By: Carlos Zavala on 04-30-2025 CO2 [Moles/Vol] 22.3 mmol/L 21.0-32.0 [facility] Chloride assayOrdered By: Korin Zavala on 04-30-2025 Chloride [Moles/Vol] 103 mmol/L 98-108 [facility] Comprehensive Metabolic Prof ilon 04-30-2025 Albumin [Mass/Vol] 4.4 g/dL Normal 3.5-5.0 [facility] Comment on above: Performed By: #### L 100.0100, L501.2450, L500.4050, L500.2500 #### [facility] [address] [place], [address] Albumin/Globulin [Mass ratio] 1.5 {ratio} Normal 0.9-2.4 [facility] Comment on above: Performed By: #### L 100.0100, L501.2450, L500.4050, L500.2500 #### [facility] [address] [place], [address] ALK PHOS 92 U/L Normal 40-129 [facility] Comment on above: Performed By: #### L 100.0100, L501.2450, L500.4050, L500.2500 #### [facility] [address] [place], [address] ALT [Catalytic activity/Vol] 34 U/L Normal <=46 [facility] Comment on above: Performed By: #### L 100.0100, L501.2450, L500.4050, L500.2500 #### [facility] [address] [place], [address] AST [Catalytic activity/Vol] 26 U/L Normal <=37 [facility] Comment on above: Performed By: #### L 100.0100, L501.2450, L500.4050, L500.2500 #### [facility] [address] [place], [address] Bilirubin [Mass/Vol] 0.67 mg/dL Normal 0.00-1.30 [facility] Comment on above: Performed By: #### L 100.0100, L501.2450, L500.4050, L500.2500 #### [facility] [address] [place], [address] Globulin (S) [Mass/Vol] 3.0 g/dL Normal 2.2-4.2 [facility] Comment on above: Performed By: #### L 100.0100, L501.2450, L500.4050, L500.2500 #### [facility] [address] [place], [address] T PROT 7.4 g/dL Normal 5.9-8.4 [facility] Comment on above: Performed By: #### L 100.0100, L501.2450, L500.4050, L500.2500 #### [facility] [address] [place], [address] Emergency Department Summary on 04-30-2025 Emergency Department Summary [facility] Medical Records Department [address] [place] [address] Emergency Department Summary 04/30/25 MR#: [id number] Acct: [id number] Name: ARTIE CABRERA Rep #: [id number] : 1980 44 From: Carlos Zavala DO PCP: AMY Schneider Status:REG ER Location: ED HPI History of Present Illness Chief Complaint: GI Bleed PFSH PFS Medical History Irregular heart beat HTN (hypertension) Home Medications ???Medication ???Instructions ???Recorded ???Last Taken ???Type lisinopril 10 mg tablet 10 mg PO DAILY blood pressure #30 11/14/22 Unknown Rx tabs Allergy/AdvReac Type Severity Reaction Status Date / Time morphine AdvReac Upset Verified 04/30/25 19:54 Stomach naproxen AdvReac Upset Verified 04/30/25 19:54 Stomach Surgical History History of dental surgery Social History Smoking Status: Former smoker substance use type: does not use EXAM Physical Exam Const Vital Signs: 04/30/25 19:54 04/30/25 22:00 Temperature 97.6 F L Temperature Source Temporal Pulse Rate 97 82 Respiratory Rate 16 16 Blood Pressure 135/91 H 144/68 H Blood Pressure Mean 105 93 Pulse Ox 99 100 Oxygen Delivery Method Room Air Room Air MDM MDM MDM Narrative Medical decision making narrative: HISTORY OF PRESENT ILLNESS: Chief complaint: Vomiting blood 44-year-old male history of hypertension states he swallowed a piece of plastic earlier now notes he is vomiting blood and is concerned. The patient further states he he was eating a chicken nugget at approximately 10:30 AM. Notes he is eating with a plastic fork. Notes he been to the chicken nugget and noticed that a piece of plastic fork was missing. He notes a plastic fork initiated for prongs and when he finished eating his chicken nugget he noticed only had 3 prongs. States he looked everywhere but cannot find the piece of plastic. Unsure if he swallowed it but is concerned because he has not been feeling "right" all day. States he has left upper quadrant abdominal pain. REVIEW OF SYSTEMS: Pertinent positives: Hematemesis, Pertinent negatives: Melena, syncope, chest pain PHYSICAL EXAM: Nursing triage notes reviewed, Vital signs reviewed Constitutional: [facility] see [facility] HENT: MMM Eyes: Pupils equal round and reactive to light, Extraocular muscles intact Neck: No stridor, no JVD, full neck ROM Lungs: Clear to auscultation, No wheezing or rales. No increased work of breathing, no conversational dyspnea, no accessory muscle use, no nasal flaring. No respiratory distress noted Heart: Regular rate and rhythm, No murmurs, No rubs and No gallops, 2+ distal pulses (radial, femoral, posterior tibial) in all extremities Abdomen: Soft, there is no tenderness, rigidity, rebound or guarding, no obvious peritoneal signs, no palpable pulsatile abdominal masses, no auscultated abdominal bruit : No CVAT Extremities: No edema Neuro: No new focal neurological deficits, cranial nerves II through XII intact, 5/5 strength in all present extremities. Intact sensation to light touch in all present extremities, 2+ reflexes bilateral patella tendons. Skin: No rash or lesions noted MEDICAL DECISION MAKING: Chief Complaint: please see HPI External records reviewed: Reviewed prior imaging studies Factors affecting care hypertension Social determinants of health: none History obtained from others: none Consults: none [facility] Narrative: Patient was initially hemodynamically stable, afebrile and nontoxic-appearing. Exam without significant peritoneal signs I considered the following differential diagnosis: Bowel perforation, acute pancreatitis, severe anemia, electrolyte disturbance, hepatobiliary pathology ALL IMAGES (IF OBTAINED) HAVE BEEN PERSONALLY REVIEWED AND INTERPRETED BY MYSELF. CT scan abdomen pelvis with no evidence of obvious perforation CBC with no leukocytosis, mild anemia, no thrombocytopenia CMP without evidence of acute kidney injury, significant electrolyte abnormality, anion gap to suggest end organ hypo-perfusion, no evidence of metabolic acidosis with a normal bicarbonate, no evidence of hepatobiliary obstructive pathology. Lipase is wnl indicating no pancreatic inflammation. The synthesis of the patient's history, physical exam, labs images suggest no acute life or limb- threatening etiology. No occasion for surgical consult acute operating room admission. Unknown etiology. No obvious radiopaque foreign body noted. Patient was given strict return precaution follow-up instructions with gastroenterology The patient and/or family, caregivers express under (more content not included)... Normal [facility] Eosinophil percentageOrdered By: Carlos Zavala on 04-30-2025 Eosinophils/100 WBC (Bld) 1.1 % 0-5 [facility] Erythrocyte distribution wid th ratioOrdered By: Carlos Zavala on 04-30-2025 Erythrocyte distribution width (RBC) [Ratio] 12.4 % 11.6-14.6 [facility] Erythrocyte distribution wid th standard deviationOrdered By: Carlos Zavala on 04-30-2025 Erythrocyte distribution width (RBC) [Ratio] 40.6 fl 35.1-43.9 [facility] Glomerular filtration rate ( GFR) estimation/1.73 sq m using serum, plasma, or whole bOrdered By: Carlos Zavala on 04-30-2025 GFR/1.73 sq M.predicted among non-blacks MDRD (S/P/Bld) [Vol rate/Area] 92 mL/min/{1.73_m2} >60 [facility] Comment on above: mL/min/1.73m2 CKD-EP I Creatinine Equation (2020) Hematocrit Auto (Bld) [Volum e fraction]Ordered By: Carlos Zavala on 04-30-2025 Hematocrit (Bld) [Volume fraction] 41.4 % 40-54 [facility] Hemoglobin measurementOrdere d By: Carlos Zavala on 04-30-2025 Hemoglobin (Bld) [Mass/Vol] 14.5 g/dL 13.0-16.5 [facility] Immature granulocytes/100 WB C Auto (Bld)Ordered By: Carlos Zavala on 04-30-2025 Immature granulocytes/100 WBC (Bld) 0.400 % 0.0-0.9 [facility] Comment on above: IG% - Immature Granu locytes (promyelocytes, myelocytes and metamyelocytes) > 1% indicates that a LEFT SHIFT is Present. Laboratory - Chemistry and C hemistry - challengeOrdered By: Carlos Zavala on 04-30-2025 AST [Catalytic activity/Vol] 26 U/L <38 [facility] Lipaseon 04-30-2025 Lipase [Catalytic activity/Vol] 33 U/L Normal 13-75 [facility] Comment on above: Result Comment: Traci garcia note: LIPASE revised reference range effective 23. New Lipase methodology. Expected to produce lower values than the previous assay method. NEW Reference Range: 13 - 75 U/L Performed By: #### L 100.0100, L501.2450, L500.4050, L500.2500 ####[facility] [address] [place], [address] Lipase measurementOrdered By : Carols Zavala on 04-30-2025 Lipase [Catalytic activity/Vol] 33 U/L 13-75 [facility] Comment on above: Please note:LIPASE r evised reference range effective 23. New Lipase methodology. Expected to produce lower values than the previous assay method. NEW Reference Range: 13 - 75 U/L MCV (mean corpuscular volume ) determinationOrdered By: Carlos Zavala on 04-30-2025 MCV (RBC) [Entitic vol] 90.4 fL 80-94 [facility] Mean corpuscular hemoglobin (MCH) determinationOrdered By: Carlos Zavala on 04-30-2025 MCH (RBC) [Entitic mass] 31.7 pg 27.0-32.0 [facility] Mean corpuscular hemoglobin concentration (MCHC) determinationOrdered By: Carlos Zavala on 04-30-2025 MCHC (RBC) [Mass/Vol] 35.0 g/dL 32-36 [facility] Mean platelet volume determi nationOrdered By: Carlos Zavala on 04-30-2025 Platelet mean volume (Bld) [Entitic vol] 8.7 fL 6.2-12.0 [facility] Monocyte percentageOrdered B y: Carlos Zavala on 04-30-2025 Monocytes/100 WBC (Bld) 10.3 % High 0-10 [facility] Neutrophil percentageOrdered By: Carlos Zavala on 04-30-2025 Neutrophils/100 WBC (Bld) 60.9 % 47-70 [facility] Nucleated red blood cell per centageOrdered By: Carlos Zavala on 04-30-2025 Nucleated RBC/100 WBC (Bld) [Ratio] 0 % 0-5 [facility] Platelet countOrdered By: Korin Zavala on 04-30-2025 Platelets (Bld) [#/Vol] 347 10*3/uL 150-450 [facility] Potassium measurement (mass/ volume)Ordered By: Carlos Zavala on 04-30-2025 Potassium (Unsp spec) [Mass/Vol] 3.8 mmol/L 3.3-5.1 [facility] RBC Auto (Bld) [#/Vol]Ordere d By: Carlos Zavala on 04-30-2025 RBC (Bld) [#/Vol] 4.58 10*6/uL Low 4.6-6.2 [facility] Serum creatinine measurement (mass/volume)Ordered By: Carlos Zavala on 04-30-2025 Creatinine [Mass/Vol] 1.03 mg/dL 0.70-1.20 [facility] Serum globulin measurementOr dered By: Carlos Zavala on 04-30-2025 Globulin (S) [Mass/Vol] 3.0 g/dL 2.2-4.2 [facility] Serum glucose measurement (m ass/volume)Ordered By: Carlos Zavala on 04-30-2025 Glucose [Mass/Vol] 103 mg/dL High 70-99 [facility] Serum or plasma alanine mendoza otransferase (ALT) measurementOrdered By: Carlos Zavala on 04-30-2025 ALT [Catalytic activity/Vol] 34 U/L <47 [facility] Serum or plasma albumin mayte urement (mass/volume)Ordered By: Carlos Zavala on 04-30-2025 Albumin [Mass/Vol] 4.4 g/dL 3.5-5.0 [facility] Serum or plasma albumin/glob ulin mass ratioOrdered By: Carlos Zavala on 04-30-2025 Albumin/Globulin [Mass ratio] 1.5 {ratio} 0.9-2.4 [facility] Serum or plasma alkaline ritika sphatase measurementOrdered By: Carlos Zavala on 04-30-2025 ALP [Catalytic activity/Vol] 92 U/L 40-129 [facility] Serum or plasma calcium mayte urement (mass/volume)Ordered By: Carlos Zavala on 04-30-2025 Calcium [Mass/Vol] 9.4 mg/dL 7.6-11.0 [facility] Serum or plasma urea nitroge n measurement (mass/volume)Ordered By: Carlos Sally on 04-30-2025 Urea nitrogen [Mass/Vol] 14 mg/dL 4-19 [facility] Sodium levelOrdered By: Sina niko Rioss on 04-30-2025 Sodium [Moles/Vol] 137 mmol/L 133-145 [facility] Total proteinOrdered By: Raquel moore Sally on 04-30-2025 Protein [Mass/Vol] 7.4 g/dL 5.9-8.4 [facility] White blood cell (WBC) count Ordered By: Carlos Sally on 04-30-2025 WBC (Bld) [#/Vol] 10.3 10*3/uL 4.4-11.0 [facility] ([id number]) 1980 M Date Time Provider Department 02/09/25 RHONDA RAHMAN [facility] During your visit today, we recorded the following information about you: Rhonda Rahman APRN.[facility] 02/09/2025 9:07 AM Signed Patient was seen at [facility] on February 02, 2025 for abdominal [...] up in the past. HIDA scan the [facility] showed sludge but did not need surgery [...] Status:Closed by RHONDA RAHMAN on 02/09/[address] [facility] Jimbo 02-03-2025 CNOV Office Visit (UCWSTR ) ARTIE CABRERA ([id number]) 1980 M Date Time Provider Department 02/03/25 1:30 PM SHAHANA VASQUEZ [facility] During your visit today, we recorded the following information about you: Temperature Pulse Respiration Blood pressure 98.7 degrees 113/minute 16/minute 122/78 Weight 94.2 kg Shahana Vasquez APRN.CNP 02/03/2025 1:49 PM Signed This note was created using myBarristerriter. Subjective Artie Cabrera is a 44 year [...] history is provided by the patient. 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 Abdominal Pain This is a [...] flat. T (more content not included)... Normal [facility] Absolute lymphocyte countOrd ered By: ED PROVIDER on 02-02-2025 Lymphocytes Auto (Unsp spec) [#/Vol] 2.04 10*3/uL 0.83-4.51 [facility] Absolute neutrophil countOrd ered By: ED PROVIDER on 02-02-2025 Neutrophils (Bld) [#/Vol] 9.3 10*3/uL High 2.0-7.7 [facility] Anion gap in Serum or Plasma Ordered By: ED PROVIDER on 02-02-2025 Anion gap [Moles/Vol] 12 mmol/L 5-15 [facility] Automated lymphocyte count a s percentage of total leukocytesOrdered By: ED PROVIDER on 02-02-2025 Lymphocytes/100 WBC Auto (Unsp spec) 15.9 % Low 19-41 [facility] BUN/creatinine ratioOrdered By: ED PROVIDER on 02-02-2025 Urea nitrogen/Creatinine [Mass ratio] 16.1 mg/mg 10-20 [facility] Bacteria Wnd Culton 02-03-20 25 Bacteria identified Cx Nom (Wound) ORGANISM ID: 1 Few skin shala GRAM STAIN: Few Gram positive cocci Rare Gram negative bacilli Rare Polymorphonuclear leukocytes Abnormal [facility] Comment on above: Performed By: #### 6 462-6 ####[facility] LABCLIA [id number] [address] [place] Basophil percentageOrdered B y: ED PROVIDER on 02-02-2025 Basophils/100 WBC (Bld) 0.7 % 0-1 [facility] Bilirubin, totalOrdered By: ED PROVIDER on 02-02-2025 Bilirubin [Mass/Vol] 0.65 mg/dL 0.00-1.30 [facility] CBC W/Diff, Automatedon 01-23 Absolute Lymph 2.04 X10 3/uL Normal 0.83-4.51 [facility] Comment on above: Performed By: #### L 501.2450, L500.4050, L100.0100 ####[facility] [address] [place], [address] Absolute Neut 9.3 X10 3/uL High 2.0-7.7 [facility] Comment on above: Performed By: #### L 501.2450, L500.4050, L100.0100 ####[facility] [address] [place], [address] Basophils/100 WBC (Bld) 0.7 % Normal 0-1 [facility] Comment on above: Performed By: #### L 501.2450, L500.4050, L100.0100 ####[facility] [address] [place], [address] Eosinophils/100 WBC (Bld) 1.0 % Normal 0-5 [facility] Comment on above: Performed By: #### L 501.2450, L500.4050, L100.0100 ####[facility] [address] [place], [address] Erythrocyte distribution width (RBC) [Ratio] 12.0 % Normal 11.6-14.6 [facility] Comment on above: Performed By: #### L 501.2450, L500.4050, L100.0100 ####[facility] [address] [place], [address] Hematocrit (Bld) [Volume fraction] 40.9 % Normal 40-54 [facility] Comment on above: Performed By: #### L 501.2450, L500.4050, L100.0100 ####[facility] [address] [place], [address] Hemoglobin (Bld) [Mass/Vol] 14.1 g/dL Normal 13.0-16.5 [facility] Comment on above: Performed By: #### L 501.2450, L500.4050, L100.0100 ####[facility] [address] [place], [address] IG% 0.400 Normal 0.0-0.9 [facility] Comment on above: Result Comment: IG% - Immature Granulocytes (promyelocytes, myelocytes and metamyelocytes) > 1% indicates that a LEFT SHIFT is Present. Performed By: #### L 501.2450, L500.4050, L100.0100 ####[facility] [address] [place], [address] Lymphocytes/100 WBC (Bld) 15.9 % Low 19-41 [facility] Comment on above: Performed By: #### L 501.2450, L500.4050, L100.0100 ####[facility] [address] [place], [address] MCH (RBC) [Entitic mass] 30.9 pg Normal 27.0-32.0 [facility] Comment on above: Performed By: #### L 501.2450, L500.4050, L100.0100 ####[facility] [address] [place], [address] MCHC (RBC) [Mass/Vol] 34.5 g/dL Normal 32-36 [facility] Comment on above: Performed By: #### L 501.2450, L500.4050, L100.0100 ####[facility] [address] [place], [address] MCV (RBC) [Entitic vol] 89.7 fL Normal 80-94 [facility] Comment on above: Performed By: #### L 501.2450, L500.4050, L100.0100 ####[facility] [address] [place], [address] Monocytes/100 WBC (Bld) 9.5 % Normal 0-10 [facility] Comment on above: Performed By: #### L 501.2450, L500.4050, L100.0100 ####[facility] [address] [place], [address] Neutrophils/100 WBC (Bld) 72.5 % High 47-70 [facility] Comment on above: Performed By: #### L 501.2450, L500.4050, L100.0100 ####[facility] [address], [address] Nucleated RBC (Bld) [#/Vol] 0 10*3/uL Normal 0-5 [facility] Comment on above: Performed By: #### L 501.2450, L500.4050, L100.0100 ####[facility] [address] [place], [address] Platelet mean volume (Bld) [Entitic vol] 8.4 fL Normal 6.2-12.0 [facility] Comment on above: Performed By: #### L 501.2450, L500.4050, L100.0100 ####[facility] [address] [place], [address] Platelets (Bld) [#/Vol] 443 10*3/uL Normal 150-450 [facility] Comment on above: Performed By: #### L 501.2450, L500.4050, L100.0100 ####[facility] [address] [place], [address] RBC (Bld) [#/Vol] 4.56 10*6/uL Low 4.6-6.2 [facility] Comment on above: Performed By: #### L 501.2450, L500.4050, L100.0100 ####[facility] [address] [place], [address] RDW SD 38.6 fl Normal 35.1-43.9 [facility] Comment on above: Performed By: #### L 501.2450, L500.4050, L100.0100 ####[facility] [address] [place], [address] WBC (Bld) [#/Vol] 12.8 10*3/uL High 4.4-11.0 [facility] Comment on above: Performed By: #### L 501.2450, L500.4050, L100.0100 ####[facility] [address] [place], [address] CNOVon 02-02-2025 CNOV Office Visit (UCWSTR ) ARTIE CABRERA ([id number]) 1980 M Date Time Provider Department 02/02/25 8:30 AM SHAHANA VASQUEZ [facility] During your visit today, we recorded the following information about you: Temperature Pulse Respiration Blood pressure 97 degrees 87/minute 20/minute 121/84 Weight 92 kg Shahana Vasquez APRN.CNP 02/02/2025 9:54 AM Signed This note was created using NoteWriter. Subjective Artie Cabrera is a 44 year old male. 44 year old male with PMH HTN presents for multiple complaints 1. Cyst Had it my whole life Endorses that it has recently " a month" Oozing Has been using band aids 2. Cough " A while" x one month +productive at times Non productive at others +chest wall pain with coughing Right sided "think I am pulling a muscle" Cough medicine Denies CP Denies hemoptysis Denies accompanying eye, nose or throat 3. Right upper quadrant pain Intermittent X 1 month Think my gallbladder is on the barton" Denies fever or chills +nausea at times Denies emesis Denies pain presently Denies seeking medical treatment Denies tobacco usage The history is provided by the patient. 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 Cough This is a new [...] adenopathy. Does (more content not included)... Normal [facility] Carbon dioxide, total [Moles /volume] in Central venous bloodOrdered By: ED PROVIDER on 02-02-2025 CO2 [Moles/Vol] 22.2 mmol/L 21.0-32.0 [facility] Chloride assayOrdered By: ED PROVIDER on 02-02-2025 Chloride [Moles/Vol] 99 mmol/L 98-108 [facility] Comprehensive Metabolic Prof ilon 02-02-2025 Albumin [Mass/Vol] 4.3 g/dL Normal 3.5-5.0 [facility] Comment on above: Performed By: #### L 501.1320, L500.4050, L100.0100 ####[facility] [address] [place], [address] Albumin/Globulin [Mass ratio] 1.3 {ratio} Normal 0.9-2.4 [facility] Comment on above: Performed By: #### L 501.2450, L500.4050, L100.0100 ####[facility] [address] [place], [address] ALK PHOS 104 U/L Normal 40-129 [facility] Comment on above: Performed By: #### L 501.2450, L500.4050, L100.0100 ####[facility] [address] [place], [address] ALT [Catalytic activity/Vol] 32 U/L Normal <=46 [facility] Comment on above: Performed By: #### L 501.2450, L500.4050, L100.0100 ####[facility] [address] [place], [address] AST [Catalytic activity/Vol] 28 U/L Normal <=37 [facility] Comment on above: Performed By: #### L 501.2450, L500.4050, L100.0100 ####[facility] [address] [place], [address] Bilirubin [Mass/Vol] 0.65 mg/dL Normal 0.00-1.30 [facility] Comment on above: Performed By: #### L 501.2450, L500.4050, L100.0100 ####[facility] [address] [place], [address] BUN/CRE 16.1 RATIO Normal 10-20 [facility] Comment on above: Performed By: #### L 501.2450, L500.4050, L100.0100 ####[facility] [address] [place], [address] Calcium [Mass/Vol] 9.2 mg/dL Normal 7.6-11.0 [facility] Comment on above: Performed By: #### L 501.2450, L500.4050, L100.0100 ####[facility] [address] [place], [address] Chloride [Moles/Vol] 99 mmol/L Normal 98-108 [facility] Comment on above: Performed By: #### L 501.2450, L500.4050, L100.0100 ####[facility] [address], [address] CO2 [Moles/Vol] 22.2 mmol/L Normal 21.0-32.0 [facility] Comment on above: Performed By: #### L 501.2450, L500.4050, L100.0100 ####[facility] [address] [place], [address] Creatinine [Mass/Vol] 1.13 mg/dL Normal 0.70-1.20 [facility] Comment on above: Performed By: #### L 501.2450, L500.4050, L100.0100 ####[facility] [address] [place], [address] ECRCL 81.96 ml/min Normal 50-250 [facility] Comment on above: Performed By: #### L 501.2450, L500.4050, L100.0100 ####[facility] [address] [place], [address] GAP 12 Normal 5-15 [facility] Comment on above: Performed By: #### L 501.2450, L500.4050, L100.0100 ####[facility] [address] [place], [address] GFR/1.73 sq M.predicted among non-blacks MDRD (S/P/Bld) [Vol rate/Area] 82 mL/min/{1.73_m2} Normal >60 [facility] Comment on above: Result Comment: mL/m in/1.73m2 CKD-EPI Creatinine Equation (2020) Performed By: #### L 501.2450, L500.4050, L100.0100 ####[facility] [address] [place], [address] Globulin (S) [Mass/Vol] 3.2 g/dL Normal 2.2-4.2 [facility] Comment on above: Performed By: #### L 501.2450, L500.4050, L100.0100 ####[facility] [address] [place], [address] Glucose [Mass/Vol] 110 mg/dL High 70-99 [facility] Comment on above: Performed By: #### L 501.2450, L500.4050, L100.0100 ####[facility] [address] [place], [address] Potassium [Moles/Vol] 4.2 mmol/L Normal 3.3-5.1 [facility] Comment on above: Performed By: #### L 501.2450, L500.4050, L100.0100 ####[facility] [address] [place], [address] Sodium [Moles/Vol] 133 mmol/L Normal 133-145 [facility] Comment on above: Performed By: #### L 501.2450, L500.4050, L100.0100 ####[facility] [address] [place], [address] T PROT 7.4 g/dL Normal 5.9-8.4 [facility] Comment on above: Performed By: #### L 501.2450, L500.4050, L100.0100 ####[facility] [address] [place], [address] Urea nitrogen [Mass/Vol] 18 mg/dL Normal 4-19 [facility] Comment on above: Performed By: #### L 501.2450, L500.4050, L100.0100 ####[facility] [address] [place], [address] Emergency Department Summary on 02-02-2025 Emergency Department Summary [facility] Medical Records Department [address] [place] [address] Emergency Department Summary 02/02/25 MR#: [id number] Acct: [id number] Name: ARTIE CABRERA Rep #: [id number] : 1980 44 From: Antonio Ortiz MD PCP: Vivien Gustafson NP-C Status:DEP ER Location: ED HPI HPI - [...] He had a HIDA scan at the [facility] which showed sludge but he did not need surgery at that time. He is having recurrent pain. He denies vomiting or diarrhea. Says he is having yellowish stool. Denies any melena. No hematemesis. No fever. No weight loss. Denies any dysuria. Prior similar symptoms: Yes Recent Illness/Hospitalizatio n: No PFSH [facility] Medical History Irregular heart beat HTN [...] bilaterally Ef (more content not included)... Normal [facility] Eosinophil percentageOrdered By: ED PROVIDER on 02-02-2025 Eosinophils/100 WBC (Bld) 1.0 % 0-5 [facility] Erythrocyte distribution wid th ratioOrdered By: ED PROVIDER on 02-02-2025 Erythrocyte distribution width (RBC) [Ratio] 12.0 % 11.6-14.6 [facility] Erythrocyte distribution wid th standard deviationOrdered By: ED PROVIDER on 02-02-2025 Erythrocyte distribution width (RBC) [Entitic vol] 38.6 fL 35.1-43.9 [facility] Erythrocyte distribution width (RBC) [Ratio] 38.6 fl 35.1-43.9 [facility] Estimation of creatinine adriel aranceOrdered By: ED PROVIDER on 02-02-2025 Estimated Creatinine Clearance Calc 81.96 ml/min 50-250 [facility] GFR/1.73 sq M.predicted liset g non-blacks MDRD (S/P/Bld) [Vol rate/Area]Ordered By: ED PROVIDER on 02-02-2025 Estimated GFR (MDRD) Non-Af Amer 82 >60 [facility] Comment on above: mL/min/1.73m2 CKD-EP I Creatinine Equation (2020) Gallbladderon 02-02-2025 Gallbladder [facility] Imaging Services [address] [place] [address] Gallbladder MR#: [id number] Acct: [id number] Name: ARTIE CABRERA Rep #: [id number] : 1980 M 44 From: Goran moreno MD PCP: Vivien Gustafson, INTERNATIONAL LOGISTICS COORDINATOR-C Status: REG ER Study: Gallbladder Date of Exam: 02/02/25 Exam# [id number] Ordering Dr: Antonio Ortiz MD PROCEDURE: Ultrasound [...] patient ate 3 hours ago. Reading Location: [place] [address] CC: AMY Puga Podlogalvaro; Dr. Antonio Ortiz MD Entry Level Manager: Signed Normal [facility] Glomerular filtration rate ( GFR) estimation/1.73 sq m using serum, plasma, or whole bOrdered By: ED PROVIDER on 02-02-2025 GFR/1.73 sq M.predicted among non-blacks MDRD (S/P/Bld) [Vol rate/Area] 82 mL/min/{1.73_m2} >60 [facility] Comment on above: mL/min/1.73m2 CKD-EP I Creatinine Equation (2020) Hematocrit Auto (Bld) [Volum e fraction]Ordered By: ED PROVIDER on 02-02-2025 Hematocrit (Bld) [Volume fraction] 40.9 % 40-54 [facility] Hemoglobin measurementOrdere d By: ED PROVIDER on 02-02-2025 Hemoglobin (Bld) [Mass/Vol] 14.1 g/dL 13.0-16.5 [facility] Immature granulocytes/100 WB C Auto (Bld)Ordered By: ED PROVIDER on 02-02-2025 Immature granulocytes/100 WBC (Bld) 0.400 % 0.0-0.9 [facility] Comment on above: IG% - Immature Granu locytes (promyelocytes, myelocytes and metamyelocytes) > 1% indicates that a LEFT SHIFT is Present. Laboratory - Chemistry and C hemistry - challengeOrdered By: ED PROVIDER on 02-02-2025 AST [Catalytic activity/Vol] 28 U/L <38 [facility] Lipaseon 02-02-2025 Lipase [Catalytic activity/Vol] 51 U/L Normal 13-75 [facility] Comment on above: Result Comment: Traci garcia note: LIPASE revised reference range effective 23. New Lipase methodology. Expected to produce lower values than the previous assay method. NEW Reference Range: 13 - 75 U/L Performed By: #### L 501.2450, L500.4050, L100.0100 ####[facility] [address] [place], [address] Lipase measurementOrdered By : ED PROVIDER on 02-02-2025 Lipase [Catalytic activity/Vol] 51 U/L 13-75 [facility] Comment on above: Please note:LIPASE r evised reference range effective 23. New Lipase methodology. Expected to produce lower values than the previous assay method. NEW Reference Range: 13 - 75 U/L Lymphocytes Auto (Unsp spec) [#/Vol]Ordered By: ED PROVIDER on 02-02-2025 Lymphocytes (Bld) [#/Vol] 2.04 10*3/uL 0.83-4.51 [facility] Lymphocytes/100 WBC Auto (Un sp spec)Ordered By: ED PROVIDER on 02-02-2025 Lymphocytes/100 WBC (Bld) 15.9 % Low 19-41 [facility] MCV (mean corpuscular volume ) determinationOrdered By: ED PROVIDER on 02-02-2025 MCV (RBC) [Entitic vol] 89.7 fL 80-94 [facility] Mean corpuscular hemoglobin (MCH) determinationOrdered By: ED PROVIDER on 02-02-2025 MCH (RBC) [Entitic mass] 30.9 pg 27.0-32.0 [facility] Mean corpuscular hemoglobin concentration (MCHC) determinationOrdered By: ED PROVIDER on 02-02-2025 MCHC (RBC) [Mass/Vol] 34.5 g/dL 32-36 [facility] Mean platelet volume determi nationOrdered By: ED PROVIDER on 02-02-2025 Platelet mean volume (Bld) [Entitic vol] 8.4 fL 6.2-12.0 [facility] Monocyte percentageOrdered B y: ED PROVIDER on 02-02-2025 Monocytes/100 WBC (Bld) 9.5 % 0-10 [facility] Neutrophil percentageOrdered By: ED PROVIDER on 02-02-2025 Neutrophils/100 WBC (Bld) 72.5 % High 47-70 [facility] Nucleated red blood cell per centageOrdered By: ED PROVIDER on 02-02-2025 Nucleated RBC/100 WBC (Bld) [Ratio] 0 % 0-5 [facility] Platelet countOrdered By: ED PROVIDER on 02-02-2025 Platelets (Bld) [#/Vol] 443 10*3/uL 150-450 [facility] Potassium (Unsp spec) [Mass/ Vol]Ordered By: ED PROVIDER on 02-02-2025 Potassium [Moles/Vol] 4.2 mmol/L 3.3-5.1 [facility] Potassium measurement (mass/ volume)Ordered By: ED PROVIDER on 02-02-2025 Potassium (Unsp spec) [Mass/Vol] 4.2 mmol/L 3.3-5.1 [facility] RBC Auto (Bld) [#/Vol]Ordere d By: ED PROVIDER on 02-02-2025 RBC (Bld) [#/Vol] 4.56 10*6/uL Low 4.6-6.2 [facility] Serum creatinine measurement (mass/volume)Ordered By: ED PROVIDER on 02-02-2025 Creatinine [Mass/Vol] 1.13 mg/dL 0.70-1.20 [facility] Serum globulin measurementOr dered By: ED PROVIDER on 02-02-2025 Globulin (S) [Mass/Vol] 3.2 g/dL 2.2-4.2 [facility] Serum glucose measurement (m ass/volume)Ordered By: ED PROVIDER on 02-02-2025 Glucose [Mass/Vol] 110 mg/dL High 70-99 [facility] Serum or plasma alanine mendoza otransferase (ALT) measurementOrdered By: ED PROVIDER on 02-02-2025 ALT [Catalytic activity/Vol] 32 U/L <47 [facility] Serum or plasma albumin mayte urement (mass/volume)Ordered By: ED PROVIDER on 02-02-2025 Albumin [Mass/Vol] 4.3 g/dL 3.5-5.0 [facility] Serum or plasma albumin/glob ulin mass ratioOrdered By: ED PROVIDER on 02-02-2025 Albumin/Globulin [Mass ratio] 1.3 {ratio} 0.9-2.4 [facility] Serum or plasma alkaline ritika sphatase measurementOrdered By: ED PROVIDER on 02-02-2025 ALP [Catalytic activity/Vol] 104 U/L 40-129 [facility] Serum or plasma calcium mayte urement (mass/volume)Ordered By: ED PROVIDER on 02-02-2025 Calcium [Mass/Vol] 9.2 mg/dL 7.6-11.0 [facility] Serum or plasma urea nitroge n measurement (mass/volume)Ordered By: ED PROVIDER on 02-02-2025 Urea nitrogen [Mass/Vol] 18 mg/dL 4-19 [facility] Sodium levelOrdered By: ED P ROVIDER on 02-02-2025 Sodium [Moles/Vol] 133 mmol/L 133-145 [facility] Total proteinOrdered By: ED PROVIDER on 02-02-2025 Protein [Mass/Vol] 7.4 g/dL 5.9-8.4 [facility] White blood cell (WBC) count Ordered By: ED PROVIDER on 02-02-2025 WBC (Bld) [#/Vol] 12.8 10*3/uL High 4.4-11.0 [facility] XR CHEST 2V FRONTAL/LATon XR CHEST 2V [...] tissues: Unremarkable. IMPRESSION: No acute radiographic abnormality. Entry Level Manager: VALERIE Transcribe Date/Time: Feb 02 2025 8:55A Dictated by : CAYLA QUIJANO MD This examination was interpreted and the report reviewed and electronically signed by: CAYLA QUIJANO MD on Feb 02 2025 8:56AM EST [id number] Normal [facility] XR Chest PA and Lateralon IMPRESSION: No acute radiographic abnormality. Entry Level Manager: [facility] Transcribe Date/Time: Feb 02 2025 8:55A Dictated by : CAYLA QUIJANO MD This examination was interpreted and the report reviewed and electronically signed by: CAYLA QUIJANO MD on Feb 02 2025 8:56AM EST DIVISION OF RADIOLOGY * * *Final Report* [...] soft tissues: Unremarkable. DIVISION OF RADIOLOGY Provider, [facility] - 02/02/2025 * * *Final Report* * [...] Unremarkable. IMPRESSION IMPRESSION: No acute radiographic abnormality. Entry Level Manager: VALERIE Transcribe Date/Time: Feb 02 2025 8:55A Dictated by : CAYLA QUIJANO MD This examination was interpreted and the report reviewed and electronically signed by: CAYLA QUIJANO MD on Feb 02 2025 8:56AM EST [facility] Radiology Study observation (narrative) Ila zapien [facility] XR Chest PA and LateralOrder ed By: [facility] Provider on 02-02-2025 [facility] Abdomen/Pelvis W IV Cont ONL Yon 01-26-2025 Abdomen/Pelvis W IV Cont ONLY [facility] Imaging Services [address] [place] [address] Abdomen/Pelvis W IV Cont ONLY MR#: [id number] Acct: [id number] Name: ARTIE CABRERA Rep #: [id number] : 1980 M 44 From: Roland Walsh i, MD PCP: Vivien Gustafson, INTERNATIONAL LOGISTICS COORDINATOR-C Status: REG ER Study: Abdomen/Pelvis W IV Cont ONLY Date of Exam: Exam# [id number] Ordering Dr: Guilherme Callahan DO PROCEDURE: ABDOMEN/PELVIS [...] use of iterative reconstruction technique). Reading Location: [id number] CC: AMY Puga Podlogar; Dr. Guilherme Callahan DO Entry Level Manager: Signed Normal [facility] Absolute lymphocyte countOrd ered By: Guilherme Callahan on 01-26-2025 Lymphocytes Auto (Unsp spec) [#/Vol] 2.70 10*3/uL 0.83-4.51 [facility] Absolute neutrophil countOrd ered By: Guilherme Callahan on 01-26-2025 Neutrophils (Bld) [#/Vol] 7.4 10*3/uL 2.0-7.7 [facility] Anion gap in Serum or Plasma Ordered By: Guilherme Callahan on 01-26-2025 Anion gap [Moles/Vol] 14 mmol/L 5-15 [facility] Automated blood erythrocyte countOrdered By: Guilherme Callahan on 01-26-2025 RBC (Bld) [#/Vol] 4.63 10*6/uL Normal 4.6-6.2 [facility] Comment on above: Performed By: #### L 500.3400, L501.2450, L500.2500, L100.0100 ####[facility] [address] [place], [place], [id number] Automated blood hematocrit ( percentage)Ordered By: Guilherme Callahan on 01-26-2025 Hematocrit (Bld) [Volume fraction] 42.0 % Normal 40-54 [facility] Comment on above: Performed By: #### L 500.3400, L501.2450, L500.2500, L100.0100 ####[facility] [address] [place], [address] Automated lymphocyte count a s percentage of total leukocytesOrdered By: Guilherme Callahan on 01-26-2025 Lymphocytes/100 WBC (Bld) 22.7 % Normal - [facility] Comment on above: Performed By: #### L 500.3400, L501.2450, L500.2500, L100.0100 ####[facility] [address] [place], [address] Lymphocytes/100 WBC Auto (Unsp spec) 22.7 % - [facility] BUN/creatinine ratioOrdered By: Guilherme Callahan on 01-26-2025 Urea nitrogen/Creatinine [Mass ratio] 14.1 mg/mg - [facility] Bacteria LM.HPF (Urine sed) [#/Area]Ordered By: Guilherme Callahan on 01-26-2025 Urine Bacteria RARE /hpf None Seen [facility] Basic Metabolic Profile (BMP )on 01-26-2025 BUN/CRE 14.1 RATIO Normal - [facility] Comment on above: Performed By: #### L 500.3400, L501.2450, L500.2500, L100.0100 ####[facility] [address] [place], [address] ECRCL 93.74 ml/min Normal 50-250 [facility] Comment on above: Performed By: #### L 500.3400, L501.2450, L500.2500, L100.0100 ####[facility] [address] [place], [address] GAP 14 Normal 5-15 [facility] Comment on above: Performed By: #### L 500.3400, L501.2450, L500.2500, L100.0100 ####[facility] [address] [place], [address] Basophil percentageOrdered B y: Guilherme Callahan on 01-26-2025 Basophils/100 WBC (Bld) 0.8 % Normal 0-1 [facility] Comment on above: Performed By: #### L 500.3400, L501.2450, L500.2500, L100.0100 ####[facility] [address] [place], [address] Bilirubin Test strip Ql (U)O rdered By: Guilherme Callahan on 01-26-2025 Bilirubin Ql (U) Negative Negative [facility] Bilirubin directOrdered By: Guilherme Callahan on 01-26-2025 Bilirubin.direct [Mass/Vol] 0.18 mg/dL Normal 0.00-0.30 [facility] Comment on above: Performed By: #### L 500.3400, L501.2450, L500.2500, L100.0100 ####[facility] [address] [place], [address] Bilirubin, totalOrdered By: Guilherme Callahan on 01-26-2025 Bilirubin [Mass/Vol] 0.50 mg/dL Normal 0.00-1.30 [facility] Comment on above: Performed By: #### L 500.3400, L501.2450, L500.2500, L100.0100 ####[facility] [address] [place], [address] CBC W/Diff, Automatedon 03-0 Absolute Lymph 2.70 X10 3/uL Normal 0.83-4.51 [facility] Comment on above: Performed By: #### L 500.3400, L501.2450, L500.2500, L100.0100 ####[facility] [address] [place], [address] Absolute Neut 7.4 X10 3/uL Normal 2.0-7.7 [facility] Comment on above: Performed By: #### L 500.3400, L501.2450, L500.2500, L100.0100 ####[facility] [address] [place], [address] IG% 0.700 Normal 0.0-0.9 [facility] Comment on above: Result Comment: IG% - Immature Granulocytes (promyelocytes, myelocytes and metamyelocytes) > 1% indicates that a LEFT SHIFT is Present. Performed By: #### L 500.3400, L501.2450, L500.2500, L100.0100 ####[facility] [address] [place], [address] Nucleated RBC (Bld) [#/Vol] 0 10*3/uL Normal 0-5 [facility] Comment on above: Performed By: #### L 500.3400, L501.2450, L500.2500, L100.0100 ####[facility] [address] [place], [address] RDW SD 39.3 fl Normal 35.1-43.9 [facility] Comment on above: Performed By: #### L 500.3400, L501.2450, L500.2500, L100.0100 ####[facility] [address] [place], [address] Carbon dioxide, total [Moles /volume] in Central venous bloodOrdered By: Guilherme Callahan on 01-26-2025 CO2 [Moles/Vol] 23.0 mmol/L Normal 21.0-32.0 [facility] Comment on above: Performed By: #### L 500.3400, L501.2450, L500.2500, L100.0100 ####[facility] [address] [place], [address] Chloride assayOrdered By: Aidan Callahan on 01-26-2025 Chloride [Moles/Vol] 97 mmol/L Low 98-108 [facility] Comment on above: Performed By: #### L 500.3400, L501.2450, L500.2500, L100.0100 ####[facility] [address] [place], [address] Emergency Department Summary on 01-26-2025 Emergency Department Summary [facility] Medical Records Department [address] [place] [address] Emergency Department Summary 01/26/25 MR#: [id number] Acct: [id number] Name: ARTIE CABRERA Rep #: [id number] : 1980 44 From: Guilherme Callahan DO [...] the area that hurts and radiates posteriorly. [facility] Medical History Irregular heart beat HTN (hypertension) [...] patient's symptomology. (more content not included)... Normal [facility] Eosinophil percentageOrdered By: Guilherme Callahan on 01-26-2025 Eosinophils/100 WBC (Bld) 2.8 % Normal 0-5 [facility] Comment on above: Performed By: #### L 500.3400, L501.2450, L500.2500, L100.0100 ####[facility] [address] [place], [place], [address] Epithelial cells.squamous LM Ql (Urine sed)Ordered By: Guilherme Callahan on 01-26-2025 Epithelial cells.squamous LM.HPF (Urine sed) [#/Area] 0 /[HPF] 0-5 [facility] Erythrocyte distribution wid th ratioOrdered By: Guilherme Callahan on 01-26-2025 Erythrocyte distribution width (RBC) [Ratio] 11.9 % Normal 11.6-14.6 [facility] Comment on above: Performed By: #### L 500.3400, L501.2450, L500.2500, L100.0100 ####[facility] [address] [place], [place], [address] Erythrocyte distribution wid th standard deviationOrdered By: Guilherme Callahan on 01-26-2025 Erythrocyte distribution width (RBC) [Entitic vol] 39.3 fL 35.1-43.9 [facility] Erythrocyte distribution width (RBC) [Ratio] 39.3 fl 35.1-43.9 [facility] Estimation of creatinine adriel aranceOrdered By: Guilherme Callahan on 01-26-2025 Estimated Creatinine Clearance Calc 93.74 ml/min 50-250 [facility] GFR/1.73 sq M.predicted liset g non-blacks MDRD (S/P/Bld) [Vol rate/Area]Ordered By: Guilherme Callahan on 01-26-2025 Estimated GFR (MDRD) Non-Af Amer 96 >60 [facility] Comment on above: mL/min/1.73m2 CKD-EP I Creatinine Equation (2020) Glomerular filtration rate ( GFR) estimation/1.73 sq m using serum, plasma, or whole bOrdered By: Guilherme Callahan on 01-26-2025 GFR/1.73 sq M.predicted among non-blacks MDRD (S/P/Bld) [Vol rate/Area] 96 mL/min/{1.73_m2} Normal >60 [facility] Comment on above: mL/min/1.73m2 CKD-EP I Creatinine Equation (2020) Result Comment: mL/m in/1.73m2 CKD-EPI Creatinine Equation (2020) Performed By: #### L 500.3400, L501.2450, L500.2500, L100.0100 ####[facility] [address] [place], [address] Glucose Ql (U)Ordered By: Aidan Callahan on 01-26-2025 Urine Glucose (UA) Normal mg/dl Normal [facility] Hemoglobin measurementOrdere d By: Guilherme Callahan on 01-26-2025 Hemoglobin (Bld) [Mass/Vol] 14.5 g/dL Normal 13.0-16.5 [facility] Comment on above: Performed By: #### L 500.3400, L501.2450, L500.2500, L100.0100 ####[facility] [address] [place], [place], [address] Immature granulocytes/100 WB C Auto (Bld)Ordered By: Guilherme Callahan on 01-26-2025 Immature granulocytes/100 WBC (Bld) 0.700 % 0.0-0.9 [facility] Comment on above: IG% - Immature Granu locytes (promyelocytes, myelocytes and metamyelocytes) > 1% indicates that a LEFT SHIFT is Present. Ketones Test strip Ql (U)Ord ered By: Guilherme Callahan on 01-26-2025 Ketones Ql (U) Negative Negative [facility] Lipase measurementOrdered By : Guilherme Callahan on 01-26-2025 Lipase [Catalytic activity/Vol] 40 U/L Normal 13-75 [facility] Comment on above: Please note:LIPASE r evised reference range effective 23. New Lipase methodology. Expected to produce lower values than the previous assay method. NEW Reference Range: 13 - 75 U/L Result Comment: Traci garcia note: LIPASE revised reference range effective 23. New Lipase methodology. Expected to produce lower values than the previous assay method. NEW Reference Range: 13 - 75 U/L Performed By: #### L 500.3400, L501.2450, L500.2500, L100.0100 ####[facility] [address] [place], [address] Liver Profileon 01-26-2025 ALK PHOS 101 U/L Normal 40-129 [facility] Comment on above: Performed By: #### L 500.3400, L501.2450, L500.2500, L100.0100 ####[facility] [address] [place], [address] T PROT 7.8 g/dL Normal 5.9-8.4 [facility] Comment on above: Performed By: #### L 500.3400, L501.2450, L500.2500, L100.0100 ####[facility] [address] [place], [address] Liver ProfileOrdered By: Johnnie Callahan on 01-26-2025 AST [Catalytic activity/Vol] 24 U/L Normal <=37 [facility] Comment on above: Performed By: #### L 500.3400, L501.2450, L500.2500, L100.0100 ####[facility] [address] [place], [address] Lymphocytes Auto (Unsp spec) [#/Vol]Ordered By: Guilherme Callahan on 01-26-2025 Lymphocytes (Bld) [#/Vol] 2.70 10*3/uL 0.83-4.51 [facility] MCV (mean corpuscular volume ) determinationOrdered By: Guilherme Callahan on 01-26-2025 MCV (RBC) [Entitic vol] 90.7 fL Normal 80-94 [facility] Comment on above: Performed By: #### L 500.3400, L501.2450, L500.2500, L100.0100 ####[facility] [address] [place], [place], [address] Mean corpuscular hemoglobin (MCH) determinationOrdered By: Guilherme Callahan on 01-26-2025 MCH (RBC) [Entitic mass] 31.3 pg Normal 27.0-32.0 [facility] Comment on above: Performed By: #### L 500.3400, L501.2450, L500.2500, L100.0100 ####[facility] [address] [place], [place], [address] Mean corpuscular hemoglobin concentration (MCHC) determinationOrdered By: Guilherme Callahan on 01-26-2025 MCHC (RBC) [Mass/Vol] 34.5 g/dL Normal 32-36 [facility] Comment on above: Performed By: #### L 500.3400, L501.2450, L500.2500, L100.0100 ####[facility] [address] [place], [place], [address] Mean platelet volume determi nationOrdered By: Guilherme Callahan on 01-26-2025 Platelet mean volume (Bld) [Entitic vol] 8.6 fL Normal 6.2-12.0 [facility] Comment on above: Performed By: #### L 500.3400, L501.2450, L500.2500, L100.0100 ####[facility] [address] [place], [place], [address] Microscopic analysis of urin e for red blood cells (RBC)Ordered By: Guilherme Callahan on 01-26-2025 Microscopic analysis of urine for red blood cells (RBC) 0 SEEN /hpf 0-5 [facility] Urine RBC 0 SEEN /hpf 0-5 [facility] Monocyte percentageOrdered B y: Guilherme Callahan on 01-26-2025 Monocytes/100 WBC (Bld) 11.2 % High 0-10 [facility] Comment on above: Performed By: #### L 500.3400, L501.2450, L500.2500, L100.0100 ####[facility] [address] [place], [address] Mucus LM Ql (Urine sed)Order ed By: Guilherme Callahan on 01-26-2025 Mucus Ql (Urine sed) 0 SEEN /hpf [facility] Neutrophil percentageOrdered By: Guilherme Callahan on 01-26-2025 Neutrophils/100 WBC (Bld) 61.8 % Normal 47-70 [facility] Comment on above: Performed By: #### L 500.3400, L501.2450, L500.2500, L100.0100 ####[facility] [address] [place], [place], [id number] Nitrite Test strip Ql (U)Ord ered By: Guilherme Callahan on 01-26-2025 Nitrite Ql (U) Negative Negative [facility] Nucleated red blood cell per centageOrdered By: Guilherme Callahan on 01-26-2025 Nucleated RBC/100 WBC (Bld) [Ratio] 0 % 0-5 [facility] Platelet countOrdered By: Aidan Callahan on 01-26-2025 Platelets (Bld) [#/Vol] 419 10*3/uL Normal 150-450 [facility] Comment on above: Performed By: #### L 500.3400, L501.2450, L500.2500, L100.0100 ####[facility] [address] [place], [address] Potassium measurement (mass/ volume)Ordered By: Guilherme Callahan on 01-26-2025 Potassium [Moles/Vol] 3.8 mmol/L Normal 3.3-5.1 [facility] Comment on above: Performed By: #### L 500.3400, L501.2450, L500.2500, L100.0100 ####[facility] [address] [place], [address] Potassium (Unsp spec) [Mass/Vol] 3.8 mmol/L 3.3-5.1 [facility] Protein Test strip Ql (U)Ord ered By: Guilherme Callahan on 01-26-2025 Protein Ql (U) Negative Negative [facility] Serum creatinine measurement (mass/volume)Ordered By: Guilherme Callahan on 01-26-2025 Creatinine [Mass/Vol] 0.99 mg/dL Normal 0.70-1.20 [facility] Comment on above: Performed By: #### L 500.3400, L501.2450, L500.2500, L100.0100 ####[facility] [address] [place], [address] Serum globulin measurementOr dered By: Guilherme Callahan on 01-26-2025 Globulin (S) [Mass/Vol] 3.7 g/dL Normal 2.2-4.2 [facility] Comment on above: Performed By: #### L 500.3400, L501.2450, L500.2500, L100.0100 ####[facility] [address] [place], [address] Serum glucose measurement (m ass/volume)Ordered By: Guilherme Callahan on 01-26-2025 Glucose [Mass/Vol] 135 mg/dL High 70-99 [facility] Comment on above: Performed By: #### L 500.3400, L501.2450, L500.2500, L100.0100 ####[facility] [address] [place], [address] Serum or plasma alanine mendoza otransferase (ALT) measurementOrdered By: Guilherme Callahan on 01-26-2025 ALT [Catalytic activity/Vol] 27 U/L Normal <=46 [facility] Comment on above: Performed By: #### L 500.3400, L501.2450, L500.2500, L100.0100 ####[facility] [address] [place], [address] Serum or plasma albumin mayte urement (mass/volume)Ordered By: Guilherme Callahan on 01-26-2025 Albumin [Mass/Vol] 4.1 g/dL Normal 3.5-5.0 [facility] Comment on above: Performed By: #### L 500.3400, L501.2450, L500.2500, L100.0100 ####[facility] [address] [place], [address] Serum or plasma alkaline ritika sphatase measurementOrdered By: Guilherme Callahan on 01-26-2025 ALP [Catalytic activity/Vol] 101 U/L 40-129 [facility] Serum or plasma calcium mayte urement (mass/volume)Ordered By: Guilherme Callahan on 01-26-2025 Calcium [Mass/Vol] 9.7 mg/dL Normal 7.6-11.0 [facility] Comment on above: Performed By: #### L 500.3400, L501.2450, L500.2500, L100.0100 ####[facility] [address] [place], [address] Serum or plasma urea nitroge n measurement (mass/volume)Ordered By: Guilherme Callahan on 01-26-2025 Urea nitrogen [Mass/Vol] 14 mg/dL Normal 4-19 [facility] Comment on above: Performed By: #### L 500.3400, L501.2450, L500.2500, L100.0100 ####[facility] [address] [place], [address] Sodium levelOrdered By: Enzo Callahan on 01-26-2025 Sodium [Moles/Vol] 133 mmol/L Normal 133-145 [facility] Comment on above: Performed By: #### L 500.3400, L501.2450, L500.2500, L100.0100 ####[facility] [address] [place], [place], [address] Squamous epithelial cells de tection in urine sediment by light microscopyOrdered By: Guilherme Callahan on 01-26-2025 Epithelial cells.squamous LM Ql (Urine sed) 0 SEEN /hpf 0-5 [facility] Total proteinOrdered By: Johnnie Callahan on 01-26-2025 Protein [Mass/Vol] 7.8 g/dL 5.9-8.4 [facility] Urinalysis, Completeon 01-26 RBC 0 SEEN Normal 0-5 [facility] Comment on above: Order Comment: CLEAN CATCH Performed By: #### L 400.0001 ####[facility] [address] [place], [place], [id number] Urine blood detectionOrdered By: Guilherme Callahan on 01-26-2025 Urine Occult Blood Negative Negative [facility] Urine clarityOrdered By: Johnnie Callahan on 01-26-2025 Clarity (U) Clear Clear [facility] Urine color determinationOrd ered By: Guilherme Callahan on 01-26-2025 Color (U) Straw Yellow [facility] Urine glucose detectionOrder ed By: Guilherme Callahan on 01-26-2025 Glucose Ql (U) Normal mg/dl Normal [facility] Urine leukocyte esterase det ection by dipstickOrdered By: Guilherme Callahan on 01-26-2025 Leukocyte esterase Test strip Ql (U) Negative Negative [facility] Urine pHOrdered By: Guilherme gallo on 01-26-2025 pH (U) 6.0 [pH] 5.0 - 8.0 [facility] Urine sediment bacteria coun t by microscopy (number/high power field)Ordered By: Guilherme Callahan on 01-26-2025 Bacteria LM.HPF (Urine sed) [#/Area] RARE /hpf None Seen [facility] Urine specific gravity measu rementOrdered By: Guilherme Callahan on 01-26-2025 Specific gravity (U) [Rel density] 1.010 1.002-1.030 [facility] Urine urobilinogen measureme ntOrdered By: Guilherme Leónehne on 01-26-2025 Urobilinogen Ql (U) Normal mg/dl Normal [facility] Urobilinogen Ql (U)Ordered B y: Guilherme Sindy on 01-26-2025 Urine Urobilinogen Normal mg/dl Normal [facility] White blood cell (WBC) count Ordered By: Guilherme Sindy on 01-26-2025 WBC (Bld) [#/Vol] 11.9 10*3/uL High 4.4-11.0 [facility] Comment on above: Performed By: #### L 500.3400, L501.2450, L500.2500, L100.0100 ####[facility] [address] [facility] [place], [place], [address] White blood cell countOrdere d By: Guilherme Callahan on 01-26-2025 Urine WBC 0 SEEN /hpf 0-5 [facility] White blood cell count 0 SEEN /hpf 0-5 [facility] Abdomen/Pelvis W IV Cont ONL Yon 10-10-2024 Abdomen/Pelvis W IV Cont ONLY [facility] Imaging Services [address] [place] [address] Abdomen/Pelvis W IV Cont ONLY MR#: [id number] Acct: [id number] Name: ARTIE CABRERA Rep #: [id number] : 1980 M 44 From: Teot Leal MD PCP: Vivien Gustafson NP-[place] Status: [facility] ER Study: Abdomen/Pelvis W IV Cont ONLY Date of Exam: Exam# [id number] Ordering Dr: Magen Chávez DO [id number] EXAM: CT ABDOMEN AND PELVIS WITH INTRAVENOUS [...] Electronically Signed: Teto Leal MD at 22:21 [facility] , CC: AMY Gustafson; Dr. Magen Chávez DO Entry Level Manager: Signed Normal [facility] Absolute neutrophil countOrd ered By: Magen Chávez on 10-10-2024 Neutrophils (Bld) [#/Vol] 4.8 10*3/uL 2.0-7.7 [facility] Albumin to globulin ratioOrd ered By: Magen Chávez on 10-10-2024 Albumin/Globulin [Mass ratio] 1.1 {ratio} Normal 0.9-2.4 [facility] Comment on above: Performed By: #### L 501.2450, L100.0100, L500.4050 ####[facility] [address] [place], [address] Automated blood erythrocyte countOrdered By: Magen Chávez on 10-10-2024 RBC (Bld) [#/Vol] 4.74 10*6/uL Normal 4.6-6.2 [facility] Comment on above: Performed By: #### L 501.2450, L100.0100, L500.4050 ####[facility] [address] [place], [address] Automated blood hematocrit ( percentage)Ordered By: Magen Chávez on 10-10-2024 Hematocrit (Bld) [Volume fraction] 43.4 % Normal 40-54 [facility] Comment on above: Performed By: #### L 501.2450, L100.0100, L500.4050 ####[facility] [address] [place], [address] Automated lymphocyte count a s percentage of total leukocytesOrdered By: Magen Chávez on 10-10-2024 Lymphocytes/100 WBC (Bld) 30.0 % Normal 19-41 [facility] Comment on above: Performed By: #### L 501.2450, L100.0100, L500.4050 ####[facility] [address] [place], [address] Basophil percentageOrdered B y: Magen Chávez on 10-10-2024 Basophils/100 WBC (Bld) 0.7 % Normal 0-1 [facility] Comment on above: Performed By: #### L 501.2450, L100.0100, L500.4050 ####[facility] [address] [place], [address] Bilirubin Test strip Ql (U)O rdered By: Magen Kyler on 10-10-2024 Bilirubin Ql (U) Negative Negative [facility] Bilirubin, totalOrdered By: Magen Chávez on 10-10-2024 Bilirubin [Mass/Vol] 0.80 mg/dL Normal 0.20-1.00 [facility] Comment on above: For patients on eltr ombopag therapy, use of Dimension [place] TBIL is not recommended. Result Comment: For patients on eltrombopag therapy, use of Dimension [place] TBIL is not recommended. Performed By: #### L 501.2450, L100.0100, L500.4050 ####[facility] [address] [place], [address] Blood urea nitrogen (BUN)/cr eatinine ratioOrdered By: Magen Chávez on 10-10-2024 Urea nitrogen/Creatinine [Mass ratio] 9.5 mg/mg Low 10-20 [facility] CBC W/Diff, Automatedon 09-25 Absolute Lymph 2.54 X10 3/uL Normal 0.83-4.51 [facility] Comment on above: Performed By: #### L 501.2450, L100.0100, L500.4050 ####[facility] [address] [place], [address] Absolute Neut 4.8 X10 3/uL Normal 2.0-7.7 [facility] Comment on above: Performed By: #### L 501.2450, L100.0100, L500.4050 ####[facility] [address] [place], [address] IG% 0.200 Normal 0.0-0.9 [facility] Comment on above: Result Comment: IG% - Immature Granulocytes (promyelocytes, myelocytes and metamyelocytes) > 1% indicates that a LEFT SHIFT is Present. Performed By: #### L 501.2450, L100.0100, L500.4050 ####[facility] [address] [place], [address] Nucleated RBC (Bld) [#/Vol] 0 10*3/uL Normal 0-5 [facility] Comment on above: Performed By: #### L 501.2450, L100.0100, L500.4050 ####[facility] [address] [place], [address] RDW SD 42.2 fl Normal 35.1-43.9 [facility] Comment on above: Performed By: #### L 501.2450, L100.0100, L500.4050 ####[facility] [address] [place], [address] Carbon dioxide measurementOr dered By: Magen Chávez on 10-10-2024 CO2 [Moles/Vol] 27.0 mmol/L Normal 21.0-32.0 [facility] Comment on above: Performed By: #### L 501.2450, L100.0100, L500.4050 ####[facility] [address] [place], [address] Chloride measurementOrdered By: Magen Chávez on 10-10-2024 Chloride [Moles/Vol] 105 mmol/L Normal 98-107 [facility] Comment on above: Performed By: #### L 501.2450, L100.0100, L500.4050 ####[facility] [address] [place], [address] Comprehensive Metabolic Prof ilon 10-10-2024 ALK P 84 U/L Normal 45-117 [facility] Comment on above: Performed By: #### L 501.2450, L100.0100, L500.4050 ####[facility] [address] [place], [address] BUN/CRE 9.5 RATIO Low 10-20 [facility] Comment on above: Performed By: #### L 501.2450, L100.0100, L500.4050 ####[facility] [address] [place], [address] CA,Total 8.8 mg/dL Normal 8.5-10.1 [facility] Comment on above: Performed By: #### L 501.2450, L100.0100, L500.4050 ####[facility] [address] [place], [address] ECRCL 89.11 ml/min Normal [facility] Comment on above: Performed By: #### L 501.2450, L100.0100, L500.4050 ####[facility] [address] [place], [address] EST GFR - AA 99 mL/min Normal >60 [facility] Comment on above: Result Comment: Afri can Guatemalan GFR Calc Performed By: #### L 501.2450, L100.0100, L500.4050 ####[facility] [address] [place], [address] GAP 5 Normal 5-15 [facility] Comment on above: Performed By: #### L 501.2450, L100.0100, L500.4050 ####[facility] [address] [place], [address] GFR/1.73 sq M.predicted among non-blacks MDRD (S/P/Bld) [Vol rate/Area] 82 mL/min/{1.73_m2} Normal >60 [facility] Comment on above: Result Comment: Non- GFR Calc Performed By: #### L 501.2450, L100.0100, L500.4050 ####[facility] [address] [place], [address] T PROT 7.3 g/dL Normal 6.4-8.2 [facility] Comment on above: Performed By: #### L 501.2450, L100.0100, L500.4050 ####[facility] [address] [place], [address] Comprehensive Metabolic Prof ilOrdered By: Magen Chávez on 10-10-2024 AST [Catalytic activity/Vol] 18 U/L Normal 15-37 [facility] Comment on above: Performed By: #### L 501.2450, L100.0100, L500.4050 ####[facility] [address] [place], [address] Emergency Department Summary on 10-10-2024 Emergency Department Summary [facility] Medical Records Department [address] [place] [address] Emergency Department Summary 10/10/24 MR#: [id number] Acct: [id number] Name: ARTIE CABRERA Rep #: [id number] : 1980 44 From: Magen Chávez DO PCP: AMY Schneider Status:REG ER Location: ED HPI History of [...] pain worsened and felt like somebody was "stabbing his intestines and cranking them". He states that has progressively worsened which ultimately prompted him here for further evaluation management. He states that he is having bowel movements and passing gas. Patient denies any other previous abdominal surgeries. Denies any recent sick contacts. [facility] Medical History Irregular heart beat HTN (hypertension) [...] following commands knew that he was at [facility] years 2023 Skin: Warm, dry, intact [...] physician outpat (more content not included)... Normal [facility] Eosinophil percentageOrdered By: Magen Chávez on 10-10-2024 Eosinophils/100 WBC (Bld) 1.7 % Normal 0-5 [facility] Comment on above: Performed By: #### L 501.2450, L100.0100, L500.4050 ####[facility] [address] [place], [address] Epithelial cells.squamous LM Ql (Urine sed)Ordered By: Magen Chávez on 10-10-2024 Epithelial cells.squamous LM.HPF (Urine sed) [#/Area] 0 /[HPF] 0-5 [facility] Erythrocyte distribution wid th ratioOrdered By: Magen Chávez on 10-10-2024 Erythrocyte distribution width (RBC) [Ratio] 12.5 % Normal 11.6-14.6 [facility] Comment on above: Performed By: #### L 501.2450, L100.0100, L500.4050 ####[facility] [address] [place], [address] Erythrocyte distribution wid th standard deviationOrdered By: Magen Chávez on 10-10-2024 Erythrocyte distribution width (RBC) [Entitic vol] 42.2 fL 35.1-43.9 [facility] Estimated glomerular filtrat ion rate (GFR) AmericanOrdered By: Magen Chávez on 10-10-2024 Estimated GFR (MDRD) Amer 99 mL/min >60 [facility] Comment on above: GFR Calc Estimation of creatinine adriel aranceOrdered By: Magen Chávez on 10-10-2024 Estimated Creatinine Clearance Calc 89.11 ml/min [facility] Glomerular filtration rate ( GFR) estimationOrdered By: Magen Chávez on 10-10-2024 Estimated GFR (MDRD) Non-Af Amer 82 mL/min >60 [facility] Comment on above: Non- GFR Calc Glucose Ql (U)Ordered By: Hector Chávez on 10-10-2024 Urine Glucose (UA) Normal mg/dl Normal [facility] Glucose measurementOrdered B y: Magen Chávez on 10-10-2024 Glucose [Mass/Vol] 114 mg/dL High 74-106 [facility] Comment on above: Fasting Glucose resu lt from 100 to 125 mg/dL suggests IMPAIRED HOMEOSTASIS per A.D.A. criteria. Result Comment: Fast ing Glucose result from 100 to 125 mg/dL suggests IMPAIRED HOMEOSTASIS per A.D.A. criteria. Performed By: #### L 501.2450, L100.0100, L500.4050 ####[facility] [address] [place], [address] Hemoglobin measurementOrdere d By: Magen Chávez on 10-10-2024 Hemoglobin (Bld) [Mass/Vol] 14.8 g/dL Normal 13.0-16.5 [facility] Comment on above: Performed By: #### L 501.2450, L100.0100, L500.4050 ####[facility] [address] [place], [address] Immature granulocytes/100 WB C Auto (Bld)Ordered By: Magen Chávez on 10-10-2024 Immature granulocytes/100 WBC (Bld) 0.200 % 0.0-0.9 [facility] Comment on above: IG% - Immature Granu locytes (promyelocytes, myelocytes and metamyelocytes) > 1% indicates that a LEFT SHIFT is Present. Ketones Test strip Ql (U)Ord ered By: Magen Chávez on 10-10-2024 Ketones Ql (U) Negative Negative [facility] Lipase measurementOrdered By : Magen Chávez on 10-10-2024 Lipase [Catalytic activity/Vol] 38 U/L Normal 13-75 [facility] Comment on above: Please note:LIPASE r evised reference range effective 23. New Lipase methodology. Expected to produce lower values than the previous assay method. NEW Reference Range: 13 - 75 U/L Result Comment: Traci garcia note: LIPASE revised reference range effective 23. New Lipase methodology. Expected to produce lower values than the previous assay method. NEW Reference Range: 13 - 75 U/L Performed By: #### L 501.2450, L100.0100, L500.4050 ####[facility] [address] [place], [address] Lymphocytes Auto (Unsp spec) [#/Vol]Ordered By: Magen Chávez on 10-10-2024 Lymphocytes (Bld) [#/Vol] 2.54 10*3/uL 0.83-4.51 [facility] MCV (mean corpuscular volume ) determinationOrdered By: Magen Chávez on 10-10-2024 MCV (RBC) [Entitic vol] 91.6 fL Normal 80-94 [facility] Comment on above: Performed By: #### L 501.2450, L100.0100, L500.4050 ####[facility] [address] [place], [address] Mean corpuscular hemoglobin (MCH) determinationOrdered By: Magen Chávez on 10-10-2024 MCH (RBC) [Entitic mass] 31.2 pg Normal 27.0-32.0 [facility] Comment on above: Performed By: #### L 501.2450, L100.0100, L500.4050 ####[facility] [address] [place], [place], [address] Mean corpuscular hemoglobin concentration (MCHC) determinationOrdered By: Magen Chávez on 10-10-2024 MCHC (RBC) [Mass/Vol] 34.1 g/dL Normal 32-36 [facility] Comment on above: Performed By: #### L 501.2450, L100.0100, L500.4050 ####[facility] [address] [place], [address] Mean platelet volume determi nationOrdered By: Magen Chávez on 10-10-2024 Platelet mean volume (Bld) [Entitic vol] 8.4 fL Normal 6.2-12.0 [facility] Comment on above: Performed By: #### L 501.2450, L100.0100, L500.4050 ####[facility] [address] [place], [address] Microscopic analysis of urin e for red blood cells (RBC)Ordered By: Magen Chávez on 10-10-2024 Urine RBC 0 SEEN /hpf 0-5 [facility] Monocyte percentageOrdered B y: Magen Chávez on 10-10-2024 Monocytes/100 WBC (Bld) 10.5 % High 0-10 [facility] Comment on above: Performed By: #### L 501.2450, L100.0100, L500.4050 ####[facility] [address] [place], [address] Mucus LM Ql (Urine sed)Order ed By: Magen Chávez on 10-10-2024 Mucus Ql (Urine sed) 0 SEEN /hpf [facility] Neutrophil percentageOrdered By: Magen Chávez on 10-10-2024 Neutrophils/100 WBC (Bld) 56.9 % Normal 47-70 [facility] Comment on above: Performed By: #### L 501.2450, L100.0100, L500.4050 ####[facility] [address] [place], [address] Nitrite Test strip Ql (U)Ord ered By: Magen Chávez on 10-10-2024 Nitrite Ql (U) Negative Negative [facility] Nucleated red blood cell per centageOrdered By: Magen Chávez on 10-10-2024 Nucleated RBC/100 WBC (Bld) [Ratio] 0 % 0-5 [facility] Platelet countOrdered By: Hector Chávez on 10-10-2024 Platelets (Bld) [#/Vol] 327 10*3/uL Normal 150-450 [facility] Comment on above: Performed By: #### L 501.2450, L100.0100, L500.4050 ####[facility] [address] [place], [address] Potassium measurementOrdered By: Magen Chávez on 10-10-2024 Potassium [Moles/Vol] 3.6 mmol/L Normal 3.5-5.1 [facility] Comment on above: Performed By: #### L 501.2450, L100.0100, L500.4050 ####[facility] [address] [place], [address] Protein Test strip Ql (U)Ord ered By: Magen Chávez on 10-10-2024 Protein Ql (U) Negative Negative [facility] Serum anion gap measurementO rdered By: Magen Chávez on 10-10-2024 Anion gap [Moles/Vol] 5 mmol/L 5-15 [facility] Serum globulin measurementOr dered By: Magen Chávez on 10-10-2024 Globulin (S) [Mass/Vol] 3.5 g/dL Normal 2.2-4.2 [facility] Comment on above: Performed By: #### L 501.2450, L100.0100, L500.4050 ####[facility] [address] [place], [address] Serum or plasma alanine mendoza otransferase (ALT) measurementOrdered By: Magen Chávez on 10-10-2024 ALT [Catalytic activity/Vol] 41 U/L Normal 16-61 [facility] Comment on above: Performed By: #### L 501.2450, L100.0100, L500.4050 ####[facility] [address] [place], [address] Serum or plasma albumin mayte urement (mass/volume)Ordered By: Magen Chávez on 10-10-2024 Albumin [Mass/Vol] 3.8 g/dL Normal 3.2-5.0 [facility] Comment on above: Performed By: #### L 501.2450, L100.0100, L500.4050 ####[facility] [address] [place], [address] Serum or plasma alkaline ritika sphatase measurementOrdered By: Magen Chávez on 10-10-2024 ALP [Catalytic activity/Vol] 84 U/L 45-117 [facility] Serum or plasma calcium mayte urement (mass/volume)Ordered By: Magen Chávez on 10-10-2024 Calcium [Mass/Vol] 8.8 mg/dL 8.5-10.1 [facility] Serum or plasma creatinine m easurement (mass/volume)Ordered By: Magen Chávez on 10-10-2024 Creatinine [Mass/Vol] 1.05 mg/dL Normal 0.70-1.30 [facility] Comment on above: The validity of the calculated GFR & GFRAA in patients over 70 years has not been determined. Clinical correlation is essential. Result Comment: The validity of the calculated GFR GFRAA in patients over 70 years has not been determined. Clinical correlation is essential. Performed By: #### L 501.2450, L100.0100, L500.4050 ####[facility] [address] [place], [address] Serum or plasma urea nitroge n measurement (mass/volume)Ordered By: Magen Chávez on 10-10-2024 Urea nitrogen [Mass/Vol] 10 mg/dL Normal 7-18 [facility] Comment on above: Performed By: #### L 501.2450, L100.0100, L500.4050 ####[facility] [address] [place], [address] Sodium levelOrdered By: Junaid Chávez on 10-10-2024 Sodium [Moles/Vol] 137 mmol/L Normal 136-145 [facility] Comment on above: Performed By: #### L 501.2450, L100.0100, L500.4050 ####[facility] [address] [place], [address] Total proteinOrdered By: Rusty Chávez on 10-10-2024 Protein [Mass/Vol] 7.3 g/dL 6.4-8.2 [facility] Urinalysis, Completeon 10-10 EPI,SQUAMOUS 0-5 SEEN Normal 0-5 [facility] Comment on above: Order Comment: CLEAN CATCH Performed By: #### L 400.0001 ####[facility] [address] [place], [address] BACTERIA 0 SEEN Normal None Seen [facility] Comment on above: Order Comment: CLEAN CATCH Performed By: #### L 400.0001 ####[facility] [address] [place], [address] Mucus Ql (Urine sed) 0 SEEN Normal [facility] Comment on above: Order Comment: CLEAN CATCH Performed By: #### L 400.0001 ####[facility] [address] [place], [address] RBC 0 SEEN Normal 0-5 [facility] Comment on above: Order Comment: CLEAN CATCH Performed By: #### L 400.0001 ####[facility] [address] [place], [address] WBC 0 SEEN Normal 0-5 [facility] Comment on above: Order Comment: CLEAN CATCH Performed By: #### L 400.0001 ####[facility] [address] [place], [place], [id number] Urine blood detectionOrdered By: Magen Chávez on 10-10-2024 Urine Occult Blood Negative Negative [facility] Urine clarityOrdered By: Rusty Chávez on 10-10-2024 Clarity (U) Sl. Cloudy Clear [facility] Urine color determinationOrd ered By: Magen Chávez on 10-10-2024 Color (U) Yellow Yellow [facility] Urine leukocyte esterase det ection by dipstickOrdered By: Magen Chávez on 10-10-2024 Leukocyte esterase Test strip Ql (U) Negative Negative [facility] Urine pHOrdered By: Magen terry on 10-10-2024 pH (U) 6.0 [pH] 5.0 - 8.0 [facility] Urine sediment bacteria coun t by microscopy (number/high power field)Ordered By: Magen Chávez on 10-10-2024 Bacteria LM.HPF (Urine sed) [#/Area] 0 /[HPF] None Seen [facility] Urine specific gravity measu rementOrdered By: Magen Chávez on 10-10-2024 Specific gravity (U) [Rel density] 1.015 1.002-1.030 [facility] Urobilinogen Ql (U)Ordered B y: Magen Chávez on 10-10-2024 Urine Urobilinogen Normal mg/dl Normal [facility] White blood cell (WBC) count Ordered By: Magen Chávez on 10-10-2024 WBC (Bld) [#/Vol] 8.5 10*3/uL Normal 4.4-11.0 [facility] Comment on above: Performed By: #### L 501.2450, L100.0100, L500.4050 ####[facility] [address] [place], [place], [id number] White blood cell countOrdere d By: Magen Chávez on 10-10-2024 Urine WBC 0 SEEN /hpf 0-5 [facility] CNPNon 04-16-2024 CNPN Telephone ([facility]) ARTIE CABRERA ([id number]) 1980 M Date Time Provider Department 04/16/24 NEHEMIAH DANG During your visit today, we recorded the following information about you: Nehemiah Dang APRN.CARD GRADER 04/16/2024 2:23 PM Signed Please let patient know their labs are normal. Kash Waterman MA 04/16/2024 2:32 PM Signed Pt active on [employer], message sent Kash Waterman MA Allergies As [...] Status:Closed by KASH WATERMAN CMA on 04/16/[address] [facility] CNOVon 04-15-2024 CNOV Office Visit ([facility]AMP[facility] ) ARTIE CABRERA ([id number]) 1980 M Date Time Provider Department 04/15/24 [...] nontender, no hepatosplenomegaly or masses Latest Ref [facility] 03/21/2024 WBC 3.70 - 11.00 k/uL 6.41 [...] Abs Lymph 1.00 - 4.00 k/uL 2.58 Sabine% % 15.6 Abs Sabine <0.87 k/uL 1.00 (H) Eosin% % 2.2 [...] - Co (more content not included)... Normal [facility] Comprehensive metabolic 2000 panelon 04-15-2024 Albumin [Mass/Vol] 4.5 g/dL Normal 3.9-4.9 [facility] Comment on above: Order Comment: Speci men Type: BLOOD SPECIMENOrdering Facility: [facility] Address: [address] [place], [place] [address] Performed By: #### 2 4323-8 ####[facility] LABCLIA [id number] [place] [address] [place] ALP [Catalytic activity/Vol] 82 U/L Normal 38-113 [facility] Comment on above: Order Comment: Speci men Type: BLOOD SPECIMENOrdering Facility: [facility] Address: [address] [place] [address] Performed By: #### 2 4323-8 ####[facility] LABCLIA [id number] [place] [address] [place] ALT [Catalytic activity/Vol] 29 U/L Normal 10-54 [facility] Comment on above: Order Comment: Speci men Type: BLOOD SPECIMENOrdering Facility: [facility] Address: [address] [place] [address] Performed By: #### 2 4323-8 ####[facility] LABCLIA [id number] [place] [address] [place] Anion gap [Moles/Vol] 13 mmol/L Normal 9-[address] [facility] Comment on above: Order Comment: Speci men Type: BLOOD SPECIMENOrdering Facility: [facility] Address: [address] [place] [address] Performed By: #### 2 4323-8 ####[facility] LABCLIA [id number] [place] [address] [place] AST [Catalytic activity/Vol] 25 U/L Normal 14-40 [facility] Comment on above: Order Comment: Speci men Type: BLOOD SPECIMENOrdering Facility: [facility] Address: [address] [place] [address] Performed By: #### 2 4323-8 ####[facility] LABCLIA [id number] [place] [address] [place] Bilirubin [Mass/Vol] 1.3 mg/dL Normal 0.2-1.3 [facility] Comment on above: Order Comment: Speci men Type: BLOOD SPECIMENOrdering Facility: [facility] Address: [address] [place] [address] Performed By: #### 2 4323-8 ####[facility] LABCLIA [id number] [address] [address] [place] Calcium [Mass/Vol] 9.6 mg/dL Normal 8.5-10.2 [facility] Comment on above: Order Comment: Speci men Type: BLOOD SPECIMENOrdering Facility: [facility] Address: [address] [place], [place] [address] Performed By: #### 2 4323-8 ####[facility] LABCLIA [id number] [place] [address] [place] Chloride [Moles/Vol] 98 mmol/L Normal 97-105 [facility] Comment on above: Order Comment: Speci men Type: BLOOD SPECIMENOrdering Facility: [facility] Address: [address] [place] [address] Performed By: #### 2 4323-8 ####[facility] LABCLIA [id number] [place] [address] [place] CO2 [Moles/Vol] 25 mmol/L Normal 22-30 [facility] Comment on above: Order Comment: Speci men Type: BLOOD SPECIMENOrdering Facility: [facility] Address: [address] [place] [address] Performed By: #### 2 4323-8 ####[facility] LABCLIA [id number] [place] [id number] [place] Creatinine [Mass/Vol] 1.07 mg/dL Normal 0.73-1.[address] [facility] Comment on above: Order Comment: Speci men Type: BLOOD SPECIMENOrdering Facility: [facility] Address: [address] [place], [place] [address] Performed By: #### 2 4323-8 ####[facility] LABCLIA [id number] [place] [id number] [place] Creatinine and Glomerular filtration rate.predicted panel (S/P/Bld) 88 mL/min/1.73m??? Normal >=60 [facility] Comment on above: Order Comment: Haider restrepo Type: BLOOD SPECIMENOrdering Facility: [facility] Address: [address] [place] [address] Result Comment: Fatoumata mated Glomerular Filtration Rate [...] actual GFR. Performed By: #### 2 4323-8 ####[facility] LABCLIA [id number] [place] [address] [place] Glucose [Mass/Vol] 92 mg/dL Normal 74-99 [facility] Comment on above: Order Comment: Haider restrepo Type: BLOOD SPECIMENOrdering Facility: [facility] Address: [address] [place] [address] Result Comment: The [place] [employer] Association (ADA) provides guidance for cutoff [...] Standards of Medical Care in Diabetes 2016, [place] [employer]. Diabetes Care. 2016.39(Suppl 1). Performed By: #### 2 4323-8 ####[facility] LABIA [id number] [place] [address] [place] Potassium [Moles/Vol] 4.4 mmol/L Normal 3.7-5.[address] [facility] Comment on above: Order Comment: Speci men Type: BLOOD SPECIMENOrdering Facility: [facility] Address: [address] [place] [address] Performed By: #### 2 4323-8 ####[facility] LABCLIA [id number] [place] [address] [place] Protein [Mass/Vol] 7.3 g/dL Normal 6.3-8.0 [facility] Comment on above: Order Comment: Speci men Type: BLOOD SPECIMENOrdering Facility: [facility] Address: [address] [place] [address] Performed By: #### 2 4323-8 ####[facility] LABIA [id number] [place] [address] [place] Sodium [Moles/Vol] 136 mmol/L Normal 136-144 [facility] Comment on above: Order Comment: Speci men Type: BLOOD SPECIMENOrdering Facility: [facility] Address: [address] [place] [address] Performed By: #### 2 4323-8 ####[facility] LABCLIA [id number] [place] [address] [place] Urea nitrogen [Mass/Vol] 17 mg/dL Normal 9-24 [facility] Comment on above: Order Comment: Speci men Type: BLOOD SPECIMENOrdering Facility: [facility] Address: [address] [place] [address] Performed By: #### 2 4323-8 ####[facility] LABIA [id number] [address] [place] Dorota 03-24-2024 IRMA Telephone (FAMPWS) DEBORAHARTIE BLAND ([id number]) 1980 M Date Time Provider Department 03/24/24 [...] AM Signed Pt notified of results via [employer] Melany Marquez Ma Allergies As of Date: 03/24/2024 Noted Allergy Reaction NAPROXEN 01/25/2009 8 - GI Upset MORPHINE 09/01/2021 11 - Vomiting Comments: dizziness Date Reviewed: 03/18/2024 Reviewed by: Lucia Andrews LPN - Fully Assessed Primary Visit Diagnosis:Elevated bilirubin [R17] Order(s):COMPREHENSIVE METABOLIC PANEL [SQCMP] Order #: [id number] FUTURE Prescriptions as of 03/24/2024 - lisinopril (ZESTRIL) 10 mg tablet Take 1 tablet by mouth once daily. For blood pressure Problem List As Of Date 03/24/2024 Noted Resolved Atypical chest pain [R07.89] Chronic RUQ pain [R10.11, G89.29] 12/06/2020 Elevated blood pressure reading [R03.0] Obesity, Class I, BMI 30-34.9 [E66.9] 02/06/2022 Hypertension, essential [I10] 02/06/2022 Encounter Status:Closed by MELANY MARQUEZ on 03/24/[address] [facility] CBC W Auto Differential pane l (Bld)on 03-21-2024 Basophils (Bld) [#/Vol] 0.05 10*3/uL Normal <0.11 [facility] Comment on above: Order Comment: Speci men Type: BLOOD SPECIMENOrdering Facility: [facility] Address: [address] [place] [address] Performed By: #### 5 7021-8 ####[facility] LABCLIA [id number] [place] [address] [place] Basophils/100 WBC (Bld) 0.8 % Normal [facility] Comment on above: Order Comment: Speci men Type: BLOOD SPECIMENOrdering Facility: [facility] Address: [address] [place] [address] Performed By: #### 5 7021-8 ####[facility] LABCLIA [id number] [place] [address] [place] Differential cell count method Nom (Bld) Auto Normal [facility] Comment on above: Order Comment: Speci men Type: BLOOD SPECIMENOrdering Facility: [facility] Address: [address] [place] [address] Performed By: #### 5 7021-8 ####[facility] LABCLIA [id number] [place] [address] [place] Eosinophils (Bld) [#/Vol] 0.14 10*3/uL Normal <0.46 [facility] Comment on above: Order Comment: Speci men Type: BLOOD SPECIMENOrdering Facility: [facility] Address: [address] [place] [address] Performed By: #### 5 7021-8 ####[facility] LABCLIA [id number] [place] [address] [place] Eosinophils/100 WBC (Bld) 2.2 % Normal [facility] Comment on above: Order Comment: Speci men Type: BLOOD SPECIMENOrdering Facility: [facility] Address: [address] [place] [address] Performed By: #### 5 7021-8 ####[facility] LABCLIA [id number] [place] [address] [place] Erythrocyte distribution width (RBC) [Ratio] 12.6 % Normal 11.5-15.0 [facility] Comment on above: Order Comment: Speci men Type: BLOOD SPECIMENOrdering Facility: [facility] Address: [address] [place] [address] Performed By: #### 5 7021-8 ####[facility] LABCLIA [id number] [place] [address] [place] Hematocrit (Bld) [Volume fraction] 45.3 % Normal 39.0-51.0 [facility] Comment on above: Order Comment: Speci men Type: BLOOD SPECIMENOrdering Facility: [facility] Address: [address] [place] [address] Performed By: #### 5 7021-8 ####[facility] LABCLIA [id number] [place] [address] [place] Hemoglobin (Bld) [Mass/Vol] 15.0 g/dL Normal 13.0-17.0 [facility] Comment on above: Order Comment: Speci men Type: BLOOD SPECIMENOrdering Facility: [facility] Address: [address] [place] [address] Performed By: #### 5 7021-8 ####[facility] LABCLIA [id number] [place] [address] [place] Immature granulocytes (Bld) [#/Vol] 10*3/uL Normal <0.10 [facility] Comment on above: Order Comment: Speci men Type: BLOOD SPECIMENOrdering Facility: [facility] Address: [address] [place] [address] Performed By: #### 5 7021-8 ####[facility] LABCLIA [id number] [place] [address] [place] Immature granulocytes/100 WBC (Bld) 0.3 % Normal [facility] Comment on above: Order Comment: Speci men Type: BLOOD SPECIMENOrdering Facility: [facility] Address: [address] [place] [address] Performed By: #### 5 7021-8 ####[facility] LABCLIA [id number] [place] [address] [place] Lymphocytes (Bld) [#/Vol] 2.58 10*3/uL Normal 1.00-4.00 [facility] Comment on above: Order Comment: Speci men Type: BLOOD SPECIMENOrdering Facility: [facility] Address: [address] [place] [address] Performed By: #### 5 7021-8 ####[facility] LABCLIA [id number] [place] [address] [place] Lymphocytes/100 WBC (Bld) 40.2 % Normal [facility] Comment on above: Order Comment: Speci men Type: BLOOD SPECIMENOrdering Facility: [facility] Address: [address] [place] [address] Performed By: #### 5 7021-8 ####[facility] LABIA [id number] [place] [address] [place] MCH (RBC) [Entitic mass] 30.5 pg Normal 26.0-34.0 [facility] Comment on above: Order Comment: Speci men Type: BLOOD SPECIMENOrdering Facility: [facility] Address: [address] [place] [address] Performed By: #### 5 7021-8 ####[facility] LABIA [id number] [place] [address] [place] MCHC (RBC) [Mass/Vol] 33.1 g/dL Normal 30.5-36.[address] [facility] Comment on above: Order Comment: Speci men Type: BLOOD SPECIMENOrdering Facility: [facility] Address: [address] [place] [address] Performed By: #### 5 7021-8 ####[facility] LABCLIA [id number] [place] [address] [place] MCV (RBC) [Entitic vol] 92.3 fL Normal 80.0-100.0 [facility] Comment on above: Order Comment: Speci men Type: BLOOD SPECIMENOrdering Facility: [facility] Address: [address] [place] [address] Performed By: #### 5 7021-8 ####[facility] LABCLIA [id number] [place] [address] [place] Monocytes (Bld) [#/Vol] 1.00 10*3/uL High <0.87 [facility] Comment on above: Order Comment: Speci men Type: BLOOD SPECIMENOrdering Facility: [facility] Address: [address] [place] [address] Performed By: #### 5 7021-8 ####[facility] LABCLIA [id number] [place] [address] [place] Monocytes/100 WBC (Bld) 15.6 % Normal [facility] Comment on above: Order Comment: Speci men Type: BLOOD SPECIMENOrdering Facility: [facility] Address: [address] [place] [address] Performed By: #### 5 7021-8 ####[facility] LABCLIA [id number] [place] [address] [place] Neutrophils (Bld) [#/Vol] 2.62 10*3/uL Normal 1.45-7.50 [facility] Comment on above: Order Comment: Speci men Type: BLOOD SPECIMENOrdering Facility: [facility] Address: [address] [place] [address] Performed By: #### 5 7021-8 ####[facility] LABCLIA [id number] [place] [address] [place] Neutrophils/100 WBC (Bld) 40.9 % Normal [facility] Comment on above: Order Comment: Speci men Type: BLOOD SPECIMENOrdering Facility: [facility] Address: [address] [place] [address] Performed By: #### 5 7021-8 ####[facility] LABCLIA [id number] [place] [address] [place] Nucleated RBC (Bld) [#/Vol] 10*3/uL Normal <0.01 [facility] Comment on above: Order Comment: Speci men Type: BLOOD SPECIMENOrdering Facility: [facility] Address: [address] [place] [address] Performed By: #### 5 7021-8 ####[facility] LABCLIA [id number] [place] [address] [place] Nucleated RBC/100 WBC (Bld) [Ratio] 0.0 /[address] [facility] Comment on above: Order Comment: Speci men Type: BLOOD SPECIMENOrdering Facility: [facility] Address: [address] [place] [address] Performed By: #### 5 7021-8 ####[facility] LABIA [id number] [place] [address] [place] Platelet mean volume (Bld) [Entitic vol] 9.1 fL Normal 9.0-12.7 [facility] Comment on above: Order Comment: Speci men Type: BLOOD SPECIMENOrdering Facility: [facility] Address: [address] [place] [address] Performed By: #### 5 7021-8 ####[facility] LABIA [id number] [place] [address] [place] Platelets (Bld) [#/Vol] 285 10*3/uL Normal 150-400 [facility] Comment on above: Order Comment: Speci men Type: BLOOD SPECIMENOrdering Facility: [facility] Address: [address] [place] [address] Performed By: #### 5 7021-8 ####[facility] LABCLIA [id number] [place] [address] [place] RBC (Bld) [#/Vol] 4.91 10*6/uL Normal 4.20-6.[address] [facility] Comment on above: Order Comment: Speci men Type: BLOOD SPECIMENOrdering Facility: [facility] Address: [address] [place] [address] Performed By: #### 5 7021-8 ####[facility] LABCLIA [id number] [place] [address] [place] WBC (Bld) [#/Vol] 6.41 10*3/uL Normal 3.70-11.[address] [facility] Comment on above: Order Comment: Speci men Type: BLOOD SPECIMENOrdering Facility: [facility] Address: [address] [place] [address] Performed By: #### 5 7021-8 ####[facility] LABCLIA [id number] [place] [address] [place] Comprehensive metabolic 2000 panelon 03-21-2024 Albumin [Mass/Vol] 4.2 g/dL Normal 3.9-4.9 [facility] Comment on above: Order Comment: Speci men Type: BLOOD SPECIMENOrdering Facility: [facility] Address: [address] [place] [address] Performed By: #### 3 016-3, 55976-6, 94552-7 ####[facility] LABCLIA [id number] [place] [address] [place] ALP [Catalytic activity/Vol] 89 U/L Normal 38-113 [facility] Comment on above: Order Comment: Speci men Type: BLOOD SPECIMENOrdering Facility: [facility] Address: [address] [place] [address] Performed By: #### 3 016-3, 85353-9, 65943-3 ####[facility] LABCLIA [id number] [place] [id number] [place] ALT [Catalytic activity/Vol] 26 U/L Normal 10-54 [facility] Comment on above: Order Comment: Speci men Type: BLOOD SPECIMENOrdering Facility: [facility] Address: [address] [place] [address] Performed By: #### 3 016-3, 94743-8, ####[facility] LABCLIA [id number] [place] [address] [place] Anion gap [Moles/Vol] 11 mmol/L Normal 9-[address] [facility] Comment on above: Order Comment: Speci men Type: BLOOD SPECIMENOrdering Facility: [facility] Address: [address] [place] [address] Performed By: #### 3 016-3, 02614-4, ####[facility] LABCLIA [id number] [place] [address] [place] AST [Catalytic activity/Vol] 26 U/L Normal 14-40 [facility] Comment on above: Order Comment: Speci men Type: BLOOD SPECIMENOrdering Facility: [facility] Address: [address] [place] [address] Performed By: #### 3 016-3, 84989-5, ####[facility] LABCLIA [id number] [place] [address] [place] Bilirubin [Mass/Vol] 1.7 mg/dL High 0.2-1.3 [facility] Comment on above: Order Comment: Speci men Type: BLOOD SPECIMENOrdering Facility: [facility] Address: [address] [place] [address] Performed By: #### 3 016-3, 98116-9, 57934-2 ####[facility] LABCLIA [id number] [place] [address] [place] Calcium [Mass/Vol] 9.6 mg/dL Normal 8.5-10.2 [facility] Comment on above: Order Comment: Speci men Type: BLOOD SPECIMENOrdering Facility: [facility] Address: [address] [place] [address] Performed By: #### 3 016-3, 27286-3, 74256-9 ####[facility] LABIA [id number] [place] [address] [place] Chloride [Moles/Vol] 100 mmol/L Normal 97-105 [facility] Comment on above: Order Comment: Speci men Type: BLOOD SPECIMENOrdering Facility: [facility] Address: [address] [place] [address] Performed By: #### 3 016-3, 20869-7, 07610-4 ####[facility] LABIA [id number] [place] [address] [place] CO2 [Moles/Vol] 26 mmol/L Normal 22-30 [facility] Comment on above: Order Comment: Speci men Type: BLOOD SPECIMENOrdering Facility: [facility] Address: [address] [place] [address] Performed By: #### 3 016-3, 10900-6, 48683-0 ####[facility] LABIA [id number] [place] [address] [place] Creatinine [Mass/Vol] 1.15 mg/dL Normal 0.73-1.[address] [facility] Comment on above: Order Comment: Speci men Type: BLOOD SPECIMENOrdering Facility: [facility] Address: [address] [place] [address] Performed By: #### 3 016-3, 72307-3, 01069-5 ####[facility]IA [id number] [place] [address] [place] Creatinine and Glomerular filtration rate.predicted panel (S/P/Bld) 81 mL/min/1.73m??? Normal >=60 [facility] Comment on above: Order Comment: Speci men Type: BLOOD SPECIMENOrdering Facility: [facility] Address: [address] [place] [address] Result Comment: Fatoumata mated Glomerular Filtration Rate [...] actual GFR. Performed By: #### 3 016-3, 66374-0, 92764-7 ####[facility]IA [id number] [place] [address] [place] Glucose [Mass/Vol] 88 mg/dL Normal 74-99 [facility] Comment on above: Order Comment: Haider restrepo Type: BLOOD SPECIMENOrdering Facility: [facility] Address: [address] [place] [address] Result Comment: The [place] Diabetes Association (ADA) provides guidance for cutoff [...] Standards of Medical Care in Diabetes 2016, [place] Diabetes Association. Diabetes Care. 2016.39(Suppl 1). Performed By: #### 3 016-3, 64177-7, 44572-5 ####[facility] LABIA [id number] [place] [id number] [place] Potassium [Moles/Vol] 4.1 mmol/L Normal 3.7-5.[address] [facility] Comment on above: Order Comment: Haider restrepo Type: BLOOD SPECIMENOrdering Facility: [facility] Address: [address] [place] [address] Performed By: #### 3 016-3, , ####[facility] LABIA [id number] [address] [address] [place] Protein [Mass/Vol] 7.3 g/dL Normal 6.3-8.0 [facility] Comment on above: Order Comment: Speci men Type: BLOOD SPECIMENOrdering Facility: [facility] Address: [address] [place] [address] Performed By: #### 3 016-3, 93768-1, ####[facility]IA [id number] [place] [address] [place] Sodium [Moles/Vol] 137 mmol/L Normal 136-144 [facility] Comment on above: Order Comment: Speci men Type: BLOOD SPECIMENOrdering Facility: [facility] Address: [address] [place] [address] Performed By: #### 3 016-3, , ####[facility] [id number] [place] [address] [place] Urea nitrogen [Mass/Vol] 21 mg/dL Normal 9-24 [facility] Comment on above: Order Comment: Speci men Type: BLOOD SPECIMENOrdering Facility: [facility] Address: [address] [place] [address] Performed By: #### 3 016-3, , ####[facility]IA [id number] [address] [address] [place] HbA1c (Bld)on 03-21-2024 Average glucose Estimated from glycated hemoglobin (Bld) [Mass/Vol] 94 mg/dL Normal [facility] Comment on above: Order Comment: Speci men Type: BLOOD SPECIMENOrdering Facility: [facility] Address: [address] [place] [address] Result Comment: eAG: (Estimated average glucose) is a calculated value from HgbA1c and is banking representative of the average blood glucose level in the last 2-3 month period. Performed By: #### 5 5454-3 ####[facility] LABCLIA [id number] [place] [address] [place] HbA1c (Bld) [Mass fraction] 4.9 % Normal 4.3-5.6 [facility] Comment on above: Order Comment: Haider restrepo Type: BLOOD SPECIMENOrdering Facility: [facility] Address: [address] [place] [address] Result Comment: [place] Diabetes Association guidelines indicate that patients with HgbA1c in the range 5.7-6.4% are at increased risk for development of diabetes, and intervention by lifestyle modification may be beneficial. HgbA1c greater or equal to 6.5% is considered diagnostic of diabetes. Performed By: #### 5 5454-3 ####[facility]IA [id number] [place] [address] [place] Lipid 1996 panelon 4 Cholesterol [Mass/Vol] 168 mg/dL Normal <200 [facility] Comment on above: Order Comment: Haider restrepo Type: BLOOD SPECIMENOrdering Facility: [facility] Address: [address] [place] [address] Result Comment: <200 mg/dL, Desirable 200-239 mg/dL, Borderline high >239 mg/dL, High Performed By: #### 3 016-3, 33518-5, 82224-2 ####[facility] LABIA [id number] [address] [place] Cholesterol in HDL [Mass/Vol] 34 mg/dL Low >39 [facility] Comment on above: Order Comment: Haider restrepo Type: BLOOD SPECIMENOrdering Facility: [facility] Address: [address] [place] [address] Result Comment: 40-5 9 mg/dL, Acceptable >59 mg/dL, High: Negative risk factor for coronary heart disease <40 mg/dL, Low: Positive risk factor for coronary heart disease Performed By: #### 3 016-3, 68231-6, ####[facility] LABCLIA [id number] [place] [address] [place] Cholesterol in LDL [Mass/Vol] 118 mg/dL High <100 [facility] Comment on above: Order Comment: Speci men Type: BLOOD SPECIMENOrdering Facility: [facility] Address: [address] [place] [address] Result Comment: <100 mg/dL, Optimal 100-129 mg/dL, Near optimal/above optimal 130-159 mg/dL, Borderline high 160-189 mg/dL, High >189 mg/dL, Very high Secondary prevention optimal LDL Cholesterol levels are recommended to be < 70 mg/dL Performed By: #### 3 016-3, 02758-5, ####[facility]IA [id number] [place] [address] [place] Cholesterol in LDL/Cholesterol in HDL [Mass ratio] 3.47 {ratio} High <2.54 [facility] Comment on above: Order Comment: Speci men Type: BLOOD SPECIMENOrdering Facility: [facility] Address: [address] [place] [address] Result Comment: Ulysses pepe: 1. National Cholesterol Education Program ATP III Guideline At-A-Glance Quick Desk Reference: National Heart, Lung, and Blood [place]. National Institutes of Health. 2001: NIH Publication No. 01-3305. 2. An International Atherosclerosis Society position paper: global recommendations for the management of dyslipidemia: executive summary, Atherosclerosis. 2014: 232(2):410-413. Performed By: #### 3 016-3, 21848-1, ####[facility] LABIA [id number] [place] [address] [place] Cholesterol in VLDL [Mass/Vol] 16 mg/dL Normal <30 [facility] Comment on above: Order Comment: Speci men Type: BLOOD SPECIMENOrdering Facility: [facility] Address: [address] [place] [address] Performed By: #### 3 016-3, , ####[facility] LABCLIA [id number] [place] [address] [place] Cholesterol non HDL [Mass/Vol] 134 mg/dL High <130 [facility] Comment on above: Order Comment: Speci men Type: BLOOD SPECIMENOrdering Facility: [facility] Address: [address] [place] [address] Result Comment: <130 mg/dL, Optimal 130-159 mg/dL, Near optimal/above optimal 160-189 mg/dL, Borderline high 190-219 mg/dL, High >219 mg/dL, Very high Secondary prevention optimal non HDL Cholesterol levels are recommended to be <100 mg/dL Performed By: #### 3 016-3, 05928-1, ####[facility] LABCLIA [id number] [place] [address] [place] Cholesterol.total/Choles terol in HDL [Mass ratio] 4.94 {ratio} Normal <5.10 [facility] Comment on above: Order Comment: Speci men Type: BLOOD SPECIMENOrdering Facility: [facility] Address: [address] [place] [address] Performed By: #### 3 016-3, , ####[facility] LABCLIA [id number] [place] [address] [place] FASTING TIME [address] [facility] Comment on above: Order Comment: Speci men Type: BLOOD SPECIMENOrdering Facility: [facility] Address: [address] [place] [address] Performed By: #### 3 016-3, , ####[facility] LABCLIA [id number] [place] [address] [place] Triglyceride [Mass/Vol] 80 mg/dL Normal <150 [facility] Comment on above: Order Comment: Speci men Type: BLOOD SPECIMENOrdering Facility: [facility] Address: [address] [place] [address] [place] [id number] Result Comment: <150 mg/dL, Normal 150-199 mg/dL, Borderline high 200-499 mg/dL, High >499 mg/dL, Very high Performed By: #### 3 016-3, 76341-5, 56239-6 ####[facility] LABCLIA [id number] [address] [place] TSH SerPl-aCncon 03-21-2024 TSH Qn 3.800 m[IU]/L Normal 0.270-4.200 [facility] Comment on above: Order Comment: Speci men Type: BLOOD SPECIMENOrdering Facility: [facility] Address: [address] [facility] [place] [address] Performed By: #### 3 016-3, 71217-8, 04408-8 ####[facility] LABCLIA [id number] [address] STATES OF [facility] CNOVon 03-18-2024 CNOV Office Visit (KARENWS ) ARTIE CABRERA ([id number]) 1980 M Date Time Provider Department 03/18/24 9:20 AM VIVIEN GUSTAFSON During your visit today, we recorded the following information about you: Pulse Respiration Blood pressure Weight 67/minute 16/minute 146/78 92.6 kg Height 1.6 m Vivien Gustafson APRN.CARD GRADER 03/18/2024 12:12 PM Signed 03/18/2024 Patient presents [...] of caffienated sodas about 4-5 cans of [employer] or [employer]. Feels fatigued a lot. Sleeps about six [...] 67 Resp 16 Ht 160 cm (5' 2.99") Wt 92.6 kg (204 lb 3.2 oz) [...] one year (more content not included)... Normal [facility] UA DIP, URINE (POC)on 2023 BILIRUBIN UA (POCT) Negative Negative [facility] CLARITY UA (POCT) Clear [facility] COLOR UA (POCT) Yellow [facility] GLUCOSE UA (POCT) Negative Negative mg/dL [facility] Hemoglobin Ql (U) Negative Negative [facility] KETONE UA (POCT) Negative Negative mg/dL [facility] LEUKOCYTES UA (POCT) Negative Negative [facility] NITRITE UA (POCT) Negative Negative [facility] PH UA (POCT) 5.5 4.5 - 8.0 [facility] Protein Ql (U) Negative Negative mg/dL [facility] SPECIFIC GRAVITY UA (POCT) >=1.030 1.005 - 1.030 [facility] UROBILINOGEN UA (POCT) 0.2 Iram l E.U./dL [facility] Location:[address], [place], [place], [address] [place] [address] POINT OF CARE [facility] Absolute lymphocyte countOrd ered By: Hunter Melendrez on 12-26-2023 Lymphocytes Auto (Unsp spec) [#/Vol] 1.93 10*3/uL 0.83-4.51 [facility] Automated lymphocyte count a s percentage of total leukocytesOrdered By: Hunter Melendrez on 12-26-2023 Lymphocytes/100 WBC Auto (Unsp spec) 28.2 % 19-41 [facility] Basophil percentageOrdered B y: Hunter Melendrez on 12-26-2023 Basophils/100 WBC (Bld) 0.7 % 0-1 [facility] Chloride [Moles/Vol] 108 mmol/L 98-107 [facility] Eosinophils/100 WBC (Bld) 1.2 % 0-5 [facility] Glucose [Mass/Vol] 124 mg/dL 74-106 [facility] Comment on above: Fasting Glucose resu lt from 100 to 125 mg/dL suggests IMPAIRED HOMEOSTASIS per A.D.A. criteria. Hemoglobin (Bld) [Mass/Vol] 14.8 g/dL 13.0-16.5 [facility] Monocytes/100 WBC (Bld) 10.4 % 0-10 [facility] Neutrophils (Bld) [#/Vol] 4.1 10*3/uL 2.0-7.7 [facility] Neutrophils/100 WBC (Bld) 59.2 % 47-70 [facility] Potassium [Moles/Vol] 3.8 mmol/L 3.5-5.1 [facility] Sodium [Moles/Vol] 137 mmol/L 136-145 [facility] WBC (Bld) [#/Vol] 6.8 10*3/uL 4.4-11.0 [facility] Determination of erythrocyte mean corpuscular volume (MCV)Ordered By: Hunter Melendrez on 12-26-2023 MCV (RBC) [Entitic vol] 91.1 fL 80-94 [facility] Erythrocyte distribution wid th ratioOrdered By: Hunter Melendrez on 12-26-2023 Erythrocyte distribution width (RBC) [Ratio] 12.7 % 11.6-14.6 [facility] Erythrocyte distribution wid th standard deviationOrdered By: Hunter Melendrez on 12-26-2023 Erythrocyte distribution width (RBC) [Entitic vol] 41.2 fL 35.1-43.9 [facility] Hematocrit Auto (Bld) [Volum e fraction]Ordered By: Hunter Melendrez on 12-26-2023 Hematocrit (Bld) [Volume fraction] 43.9 % 40-54 [facility] Immature granulocytes/100 WB C Auto (Bld)Ordered By: Hunter Melendrez on 12-26-2023 Immature granulocytes/100 WBC (Bld) 0.300 % 0.0-0.9 [facility] Comment on above: IG% - Immature Granu locytes (promyelocytes, myelocytes and metamyelocytes) > 1% indicates that a LEFT SHIFT is Present. Laboratory - Chemistry and C hemistry - challengeOrdered By: Hunter Melendrez on 12-26-2023 CO2 [Moles/Vol] 26.0 mmol/L 21.0-32.0 [facility] Urea nitrogen/Creatinine [Mass ratio] 15.0 mg/mg 10-20 [facility] Laboratory - Hematology and Cell countsOrdered By: Hunter Melendrez on 12-26-2023 MCH (RBC) [Entitic mass] 30.7 pg 27.0-32.0 [facility] MCHC (RBC) [Mass/Vol] 33.7 g/dL 32-36 [facility] Nucleated RBC/100 WBC (Bld) [Ratio] 0 % 0-5 [facility] Platelets (Bld) [#/Vol] 309 10*3/uL 150-450 [facility] No Panel InformationOrdered By: Hunter Melendrez on 12-26-2023 Estimated Creatinine Clearance Calc 88.58 ml/min [facility] Estimated GFR (MDRD) Amer 97 mL/min >60 [facility] Comment on above: GFR Calc Estimated GFR (MDRD) Non-Af Amer 80 mL/min >60 [facility] Comment on above: Non- GFR Calc Troponin I High Sensitivity 4 pg/mL 3.0-78.0 [facility] Comment on above: Please Note: New El[place] t Units and Gender Specific Reference Ranges. For more information see Policy Stat Procedure [place] High Sensitivity Troponin (TNIH) and attachments. Platelet mean volume Familia-Ec ker (Bld) [Entitic vol]Ordered By: Hunter Melendrez on 12-26-2023 Platelet mean volume (Bld) [Entitic vol] 8.7 fL 6.2-12.0 [facility] RBC Auto (Bld) [#/Vol]Ordere d By: Hunter Melendrez on 12-26-2023 RBC (Bld) [#/Vol] 4.82 10*6/uL 4.6-6.2 [facility] Serum or plasma calcium mayte urement (mass/volume)Ordered By: Hunter Melendrez on 12-26-2023 Calcium [Mass/Vol] 9.2 mg/dL 8.5-10.1 [facility] Serum or plasma creatinine m easurement (mass/volume)Ordered By: Hunter Melendrez on 12-26-2023 Creatinine [Mass/Vol] 1.07 mg/dL 0.70-1.30 [facility] Comment on above: The validity of the calculated GFR & GFRAA in patients over 70 years has not been determined. Clinical correlation is essential. Serum or plasma urea nitroge n measurement (mass/volume)Ordered By: Hunter Melendrez on 12-26-2023 Urea nitrogen [Mass/Vol] 16 mg/dL 7-18 [facility] Thin prep Papanicolaou smear with manual screeningOrdered By: Hunter Melendrez on 12-26-2023 Thin prep Papanicolaou smear with manual screening 3 5-15 [facility] Absolute lymphocyte countOrd ered By: Bobby Alarcon on 09-24-2023 Lymphocytes Auto (Unsp spec) [#/Vol] 2.42 10*3/uL 0.83-4.51 [facility] Basophil percentageOrdered B y: Bobby Alarcon on 09-24-2023 Basophils/100 WBC (Bld) 0.8 % 0-1 [facility] Bilirubin [Mass/Vol] 0.50 mg/dL 0.20-1.00 [facility] Comment on above: For patients on eltr ombopag therapy, use of Dimension [place] TBIL is not recommended. Chloride [Moles/Vol] 106 mmol/L 98-107 [facility] Eosinophils/100 WBC (Bld) 1.2 % 0-5 [facility] Glucose [Mass/Vol] 109 mg/dL 74-106 [facility] Comment on above: Fasting Glucose resu lt from 100 to 125 mg/dL suggests IMPAIRED HOMEOSTASIS per A.D.A. criteria. Neutrophils (Bld) [#/Vol] 4.0 10*3/uL 2.0-7.7 [facility] Neutrophils/100 WBC (Bld) 54.1 % 47-70 [facility] Potassium [Moles/Vol] 3.8 mmol/L 3.5-5.1 [facility] Protein [Mass/Vol] 7.1 g/dL 6.4-8.2 [facility] Sodium [Moles/Vol] 138 mmol/L 136-145 [facility] WBC (Bld) [#/Vol] 7.4 10*3/uL 4.4-11.0 [facility] Blood erythrocytes count (nu mber/volume)Ordered By: Bobby Alarcon on 09-24-2023 RBC (Bld) [#/Vol] 4.44 10*6/uL 4.6-6.2 [facility] Blood hemoglobin measurement (mass/volume)Ordered By: Bobby Alarcon on 09-24-2023 Hemoglobin (Bld) [Mass/Vol] 14.0 g/dL 13.0-16.5 [facility] Blood lymphocytes/100 leukoc ytesOrdered By: Bobby Alarcon on 09-24-2023 Lymphocytes/100 WBC (Bld) 32.7 % 19-41 [facility] Blood monocytes/100 leukocyt esOrdered By: Bobby Alarcon on 09-24-2023 Monocytes/100 WBC (Bld) 10.9 % 0-10 [facility] Blood platelet mean volumeOr dered By: Bobby Alarcon on 09-24-2023 Platelet mean volume (Bld) [Entitic vol] 8.7 fL 6.2-12.0 [facility] Determination of erythrocyte mean corpuscular volume (MCV)Ordered By: Bobby Alarcon on 09-24-2023 MCV (RBC) [Entitic vol] 91.2 fL 80-94 [facility] Direct bilirubinOrdered By: Bobby Alarcon on 09-24-2023 Bilirubin.direct [Mass/Vol] 0.14 mg/dL 0.00-0.30 [facility] Hematocrit Auto (Bld) [Volum e fraction]Ordered By: Bobby Alarcon on 09-24-2023 Hematocrit (Bld) [Volume fraction] 40.5 % 40-54 [facility] Laboratory - Chemistry and C hemistry - challengeOrdered By: Bobby Alarcon on 09-24-2023 ALP [Catalytic activity/Vol] 77 U/L 45-117 [facility] ALT [Catalytic activity/Vol] 29 U/L 16-61 [facility] CO2 [Moles/Vol] 28.0 mmol/L 21.0-32.0 [facility] Globulin (S) [Mass/Vol] 3.4 g/dL 2.2-4.2 [facility] Lipase [Catalytic activity/Vol] 48 U/L 13-75 [facility] Comment on above: Please note:LIPASE r evised reference range effective 23. New Lipase methodology. Expected to produce lower values than the previous assay method. NEW Reference Range: 13 - 75 U/L Urea nitrogen/Creatinine [Mass ratio] 11.0 mg/mg 10-20 [facility] Laboratory - Hematology and Cell countsOrdered By: Bobby Alarcon on 09-24-2023 Erythrocyte distribution width (RBC) [Entitic vol] 41.1 fL 35.1-43.9 [facility] Erythrocyte distribution width (RBC) [Ratio] 12.6 % 11.6-14.6 [facility] Immature granulocytes/100 WBC (Bld) 0.300 % 0.0-0.9 [facility] Comment on above: IG% - Immature Granu locytes (promyelocytes, myelocytes and metamyelocytes) > 1% indicates that a LEFT SHIFT is Present. MCH (RBC) [Entitic mass] 31.5 pg 27.0-32.0 [facility] Nucleated RBC/100 WBC (Bld) [Ratio] 0 % 0-5 [facility] MCHC Auto (RBC) [Mass/Vol]Or dered By: Bobby Alarcon on 09-24-2023 MCHC (RBC) [Mass/Vol] 34.6 g/dL 32-36 [facility] No Panel InformationOrdered By: Bobby Alarcon on 09-24-2023 Estimated Creatinine Clearance Calc 62.34 ml/min [facility] Estimated GFR (MDRD) Amer 87 mL/min >60 [facility] Comment on above: GFR Calc Estimated GFR (MDRD) Non-Af Amer 72 mL/min >60 [facility] Comment on above: Non- GFR Calc Platelets bldOrdered By: Joe Alarcon on 09-24-2023 Platelets (Bld) [#/Vol] 265 10*3/uL 150-450 [facility] Serum or plasma albumin mayte urement (mass/volume)Ordered By: Bobby Alarcon on 09-24-2023 Albumin [Mass/Vol] 3.7 g/dL 3.2-5.0 [facility] Serum or plasma calcium mayte urement (mass/volume)Ordered By: Bobby Alarcon on 09-24-2023 Calcium [Mass/Vol] 8.5 mg/dL 8.5-10.1 [facility] Serum or plasma creatinine m easurement (mass/volume)Ordered By: Bobby Alarcon on 09-24-2023 Creatinine [Mass/Vol] 1.18 mg/dL 0.70-1.30 [facility] Comment on above: The validity of the calculated GFR & GFRAA in patients over 70 years has not been determined. Clinical correlation is essential. Serum or plasma urea nitroge n measurement (mass/volume)Ordered By: Bobby Alarcon on 09-24-2023 Urea nitrogen [Mass/Vol] 13 mg/dL 7-18 [facility] Thin prep Papanicolaou smear with manual screeningOrdered By: Bobby Alarcon on 09-24-2023 Thin prep Papanicolaou smear with manual screening 19 U/L 15-37 [facility] Thin prep Papanicolaou smear with manual screening 4 5-15 [facility] Absolute lymphocyte countOrd ered By: Liz Goodson on 04-06-2023 Lymphocytes Auto (Unsp spec) [#/Vol] 1.89 10*3/uL 0.83-4.51 [facility] Basophil percentageOrdered B y: Liz Goodson on 04-06-2023 Basophils/100 WBC (Bld) 0.8 % 0-1 [facility] Bilirubin [Mass/Vol] 1.10 mg/dL 0.20-1.00 [facility] Comment on above: For patients on eltr ombopag therapy, use of Dimension [place] TBIL is not recommended. Chloride [Moles/Vol] 108 mmol/L 98-107 [facility] Eosinophils/100 WBC (Bld) 2.1 % 0-5 [facility] Glucose [Mass/Vol] 112 mg/dL 74-106 [facility] Comment on above: Fasting Glucose resu lt from 100 to 125 mg/dL suggests IMPAIRED HOMEOSTASIS per A.D.A. criteria. Neutrophils (Bld) [#/Vol] 2.6 10*3/uL 2.0-7.7 [facility] Neutrophils/100 WBC (Bld) 49.0 % 47-70 [facility] Potassium [Moles/Vol] 3.5 mmol/L 3.5-5.1 [facility] Protein [Mass/Vol] 6.9 g/dL 6.4-8.2 [facility] Sodium [Moles/Vol] 141 mmol/L 136-145 [facility] WBC (Bld) [#/Vol] 5.3 10*3/uL 4.4-11.0 [facility] Blood erythrocytes count (nu mber/volume)Ordered By: Liz Goodson on 04-06-2023 RBC (Bld) [#/Vol] 4.41 10*6/uL 4.6-6.2 [facility] Blood hemoglobin measurement (mass/volume)Ordered By: Liz Goodson on 04-06-2023 Hemoglobin (Bld) [Mass/Vol] 13.9 g/dL 13.0-16.5 [facility] Blood lymphocytes/100 leukoc ytesOrdered By: Liz Goodson on 04-06-2023 Lymphocytes/100 WBC (Bld) 35.9 % 19-41 [facility] Blood monocytes/100 leukocyt esOrdered By: Liz Goodson on 04-06-2023 Monocytes/100 WBC (Bld) 12.0 % 0-10 [facility] Blood platelet mean volumeOr dered By: Liz Goodson on 04-06-2023 Platelet mean volume (Bld) [Entitic vol] 9.0 fL 6.2-12.0 [facility] Determination of erythrocyte mean corpuscular volume (MCV)Ordered By: Liz Goodson on 04-06-2023 MCV (RBC) [Entitic vol] 94.6 fL 80-94 [facility] Hematocrit Auto (Bld) [Volum e fraction]Ordered By: Liz Goodson on 04-06-2023 Hematocrit (Bld) [Volume fraction] 41.7 % 40-54 [facility] Laboratory - Chemistry and C hemistry - challengeOrdered By: Liz Goodson on 04-06-2023 ALP [Catalytic activity/Vol] 84 U/L 45-117 [facility] ALT [Catalytic activity/Vol] 28 U/L 16-61 [facility] CO2 [Moles/Vol] 27.0 mmol/L 21.0-32.0 [facility] Globulin (S) [Mass/Vol] 3.3 g/dL 2.2-4.2 [facility] Urea nitrogen/Creatinine [Mass ratio] 17.9 mg/mg 10-20 [facility] Laboratory - Hematology and Cell countsOrdered By: Liz Goodson on 04-06-2023 Erythrocyte distribution width (RBC) [Entitic vol] 42.5 fL 35.1-43.9 [facility] Erythrocyte distribution width (RBC) [Ratio] 12.2 % 11.6-14.6 [facility] Immature granulocytes/100 WBC (Bld) 0.200 % 0.0-0.9 [facility] Comment on above: IG% - Immature Granu locytes (promyelocytes, myelocytes and metamyelocytes) > 1% indicates that a LEFT SHIFT is Present. MCH (RBC) [Entitic mass] 31.5 pg 27.0-32.0 [facility] Nucleated RBC/100 WBC (Bld) [Ratio] 0 % 0-5 [facility] MCHC Auto (RBC) [Mass/Vol]Or dered By: Liz Goodson on 04-06-2023 MCHC (RBC) [Mass/Vol] 33.3 g/dL 32-36 [facility] No Panel InformationOrdered By: Liz Goodson on 04-06-2023 Estimated Creatinine Clearance Calc 78.23 ml/min [facility] Estimated GFR (MDRD) Amer 111 mL/min >60 [facility] Comment on above: GFR Calc Estimated GFR (MDRD) Non-Af Amer 92 mL/min >60 [facility] Comment on above: Non- GFR Calc Platelets bldOrdered By: Brad Goodson on 04-06-2023 Platelets (Bld) [#/Vol] 281 10*3/uL 150-450 [facility] Serum or plasma albumin mayte urement (mass/volume)Ordered By: Liz Goodson on 04-06-2023 Albumin [Mass/Vol] 3.6 g/dL 3.2-5.0 [facility] Serum or plasma albumin/glob ulin mass ratioOrdered By: Liz Goodson on 04-06-2023 Albumin/Globulin [Mass ratio] 1.1 {ratio} 0.9-2.4 [facility] Serum or plasma calcium mayte urement (mass/volume)Ordered By: Liz Goodson on 04-06-2023 Calcium [Mass/Vol] 8.5 mg/dL 8.5-10.1 [facility] Serum or plasma creatinine m easurement (mass/volume)Ordered By: Liz Goodson on 04-06-2023 Creatinine [Mass/Vol] 0.95 mg/dL 0.70-1.30 [facility] Comment on above: The validity of the calculated GFR & GFRAA in patients over 70 years has not been determined. Clinical correlation is essential. Serum or plasma urea nitroge n measurement (mass/volume)Ordered By: Liz Goodson on 04-06-2023 Urea nitrogen [Mass/Vol] 17 mg/dL 7-18 [facility] Thin prep Papanicolaou smear with manual screeningOrdered By: Liz Goodson on 04-06-2023 Thin prep Papanicolaou smear with manual screening 19 U/L 15-37 [facility] Thin prep Papanicolaou smear with manual screening 6 5-15 [facility] Absolute lymphocyte counton 11-14-2022 Lymphocytes Auto (Unsp spec) [#/Vol] 1.95 10*3/uL 0.83-4.51 [facility] Work Phone: Basophil percentageon 2021 Basophils/100 WBC (Bld) 0.6 % 0-1 [facility] Work Phone: Chloride [Moles/Vol] 107 mmol/L 98-107 [facility] Work Phone: Eosinophils/100 WBC (Bld) 0.4 % 0-5 [facility] Work Phone: Glucose [Mass/Vol] 111 mg/dL 74-106 [facility] Work Phone: Comment on above: Fasting Glucose resu lt from 100 to 125 mg/dL suggests IMPAIRED HOMEOSTASIS per A.D.A. criteria. Neutrophils (Bld) [#/Vol] 5.1 10*3/uL 2.0-7.7 [facility] Work Phone: Neutrophils/100 WBC (Bld) 64.8 % 47-70 [facility] Work Phone: Potassium [Moles/Vol] 3.5 mmol/L 3.5-5.1 [facility] Work Phone: Sodium [Moles/Vol] 138 mmol/L 136-145 [facility] Work Phone: WBC (Bld) [#/Vol] 7.9 10*3/uL 4.4-11.0 [facility] Work Phone: Blood erythrocytes count (nu mber/volume)on 11-14-2022 RBC (Bld) [#/Vol] 4.28 10*6/uL 4.6-6.2 [facility] Work Phone: Blood hemoglobin measurement (mass/volume)on 11-14-2022 Hemoglobin (Bld) [Mass/Vol] 13.6 g/dL 13.0-16.5 [facility] Work Phone: Blood lymphocytes/100 leukoc yteson 11-14-2022 Lymphocytes/100 WBC (Bld) 24.7 % 19-41 [facility] Work Phone: Blood monocytes/100 leukocyt eson 11-14-2022 Monocytes/100 WBC (Bld) 9.1 % 0-10 [facility] Work Phone: Blood platelet mean volumeon 11-14-2022 Platelet mean volume (Bld) [Entitic vol] 9.0 fL 6.2-12.0 [facility] Work Phone: Determination of erythrocyte mean corpuscular volume (MCV)on 11-14-2022 MCV (RBC) [Entitic vol] 93.7 fL 80-94 [facility] Work Phone: Hematocrit Auto (Bld) [Volum e fraction]on 11-14-2022 Hematocrit (Bld) [Volume fraction] 40.1 % 40-54 [facility] Work Phone: Laboratory - Chemistry and C hemistry - challengeon 11-14-2022 CO2 [Moles/Vol] 24.0 mmol/L 21.0-32.0 [facility] Work Phone: Urea nitrogen/Creatinine [Mass ratio] 13.1 mg/mg 10-20 [facility] Work Phone: Laboratory - Hematology and Cell countson 11-14-2022 Erythrocyte distribution width (RBC) [Entitic vol] 42.7 fL 35.1-43.9 [facility] Work Phone: Erythrocyte distribution width (RBC) [Ratio] 12.4 % 11.6-14.6 [facility] Work Phone: [phone] Immature granulocytes/100 WBC (Bld) 0.400 % 0.0-0.9 [facility] Work Phone: [phone] Comment on above: IG% - Immature Granu locytes (promyelocytes, myelocytes and metamyelocytes) > 1% indicates that a LEFT SHIFT is Present. MCH (RBC) [Entitic mass] 31.8 pg 27.0-32.0 [facility] Work Phone: [phone] Nucleated RBC/100 WBC (Bld) [Ratio] 0 % 0-5 [facility] Work Phone: [phone] MCHC Auto (RBC) [Mass/Vol]on 11-14-2022 MCHC (RBC) [Mass/Vol] 33.9 g/dL 32-36 [facility] Work Phone: No Panel Informationon 11-14 Estimated Creatinine Clearance Calc 74.32 ml/min [facility] Work Phone: [phone] Estimated GFR (MDRD) Amer 106 mL/min >60 [facility] Work Phone: [phone] Comment on above: GFR Calc Estimated GFR (MDRD) Non-Af Amer 87 mL/min >60 [facility] Work Phone: [phone] Comment on above: Non- GFR Calc Platelets bldon 11-14-2022 Platelets (Bld) [#/Vol] 290 10*3/uL 150-450 [facility] Work Phone: [phone] Serum or plasma calcium mayte urement (mass/volume)on 11-14-2022 Calcium [Mass/Vol] 8.7 mg/dL 8.5-10.1 [facility] Work Phone: [phone] Serum or plasma creatinine m easurement (mass/volume)on 11-14-2022 Creatinine [Mass/Vol] 1.00 mg/dL 0.70-1.30 [facility] Work Phone: Comment on above: The validity of the calculated GFR & GFRAA in patients over 70 years has not been determined. Clinical correlation is essential. Serum or plasma urea nitroge n measurement (mass/volume)on 11-14-2022 Urea nitrogen [Mass/Vol] 13 mg/dL 7-18 [facility] Work Phone: Thin prep Papanicolaou smear with manual screeningon 11-14-2022 Thin prep Papanicolaou smear with manual screening 7 5-15 [facility] Work Phone: Absolute lymphocyte counton 08-15-2022 Lymphocytes Auto (Unsp spec) [#/Vol] 2.11 10*3/uL 0.83-4.51 [facility] Work Phone: Basophil percentageon 2021 Basophils/100 WBC (Bld) 0.8 % 0-1 [facility] Work Phone: Chloride [Moles/Vol] 101 mmol/L 98-107 [facility] Work Phone: Eosinophils/100 WBC (Bld) 1.7 % 0-5 [facility] Work Phone: Glucose [Mass/Vol] 105 mg/dL 74-106 [facility] Work Phone: Comment on above: Fasting Glucose resu lt from 100 to 125 mg/dL suggests IMPAIRED HOMEOSTASIS per A.D.A. criteria. Neutrophils (Bld) [#/Vol] 3.2 10*3/uL 2.0-7.7 [facility] Work Phone: Neutrophils/100 WBC (Bld) 50.7 % 47-70 [facility] Work Phone: Potassium [Moles/Vol] 3.7 mmol/L 3.5-5.1 [facility] Work Phone: Sodium [Moles/Vol] 137 mmol/L 136-145 [facility] Work Phone: WBC (Bld) [#/Vol] 6.3 10*3/uL 4.4-11.0 [facility] Work Phone: Blood erythrocytes count (nu mber/volume)on 08-15-2022 RBC (Bld) [#/Vol] 4.55 10*6/uL 4.6-6.2 [facility]: Blood hemoglobin measurement (mass/volume)on 08-15-2022 Hemoglobin (Bld) [Mass/Vol] 14.4 g/dL 13.0-16.5 [facility] Work Phone: Blood lymphocytes/100 leukoc yteson 08-15-2022 Lymphocytes/100 WBC (Bld) 33.4 % 19-41 [facility] Work Phone: Blood monocytes/100 leukocyt eson 08-15-2022 Monocytes/100 WBC (Bld) 13.1 % 0-10 [facility] Work Phone: Blood platelet mean volumeon 08-15-2022 Platelet mean volume (Bld) [Entitic vol] 9.0 fL 6.2-12.0 [facility] Work Phone: Determination of erythrocyte mean corpuscular volume (MCV)on 08-15-2022 MCV (RBC) [Entitic vol] 93.6 fL 80-94 [facility] Work Phone: Hematocrit Auto (Bld) [Volum e fraction]on 08-15-2022 Hematocrit (Bld) [Volume fraction] 42.6 % 40-54 [facility] Work Phone: [phone] Laboratory - Chemistry and C hemistry - challengeon 08-15-2022 CO2 [Moles/Vol] 28.0 mmol/L 21.0-32.0 [facility] Work Phone: Urea nitrogen/Creatinine [Mass ratio] 7.1 mg/mg 10-20 [facility] Work Phone: [phone] Laboratory - Hematology and Cell countson 08-15-2022 Erythrocyte distribution width (RBC) [Entitic vol] 43.7 fL 35.1-43.9 [facility] Work Phone: [phone] Erythrocyte distribution width (RBC) [Ratio] 12.6 % 11.6-14.6 [facility] Work Phone: Immature granulocytes/100 WBC (Bld) 0.300 % 0.0-0.9 [facility] Work Phone: Comment on above: IG% - Immature Granu locytes (promyelocytes, myelocytes and metamyelocytes) > 1% indicates that a LEFT SHIFT is Present. MCH (RBC) [Entitic mass] 31.6 pg 27.0-32.0 [facility] Work Phone: Nucleated RBC/100 WBC (Bld) [Ratio] 0 % 0-5 [facility] Work Phone: [phone] MCHC Auto (RBC) [Mass/Vol]on 08-15-2022 MCHC (RBC) [Mass/Vol] 33.8 g/dL 32-36 [facility] Work Phone: No Panel Informationon 08-15 Estimated Creatinine Clearance Calc 66.35 ml/min [facility] Work Phone: [phone] Estimated GFR (MDRD) Amer 92 mL/min >60 [facility] Work Phone: [phone] Comment on above: GFR Calc Estimated GFR (MDRD) Non-Af Amer 76 mL/min >60 [facility] Work Phone: Comment on above: Non- GFR Calc Troponin I High Sensitivity 4 pg/mL 3.0-78.0 [facility] Work Phone: Comment on above: Please Note: New [place] Units and Gender Specific Reference Ranges. For more information see Policy Stat Procedure [place] High Sensitivity Troponin (TNIH) and attachments. Platelets bldon 08-15-2022 Platelets (Bld) [#/Vol] 301 10*3/uL 150-450 [facility] Work Phone: [phone] Serum or plasma calcium mayte urement (mass/volume)on 08-15-2022 Calcium [Mass/Vol] 9.1 mg/dL 8.5-10.1 [facility] Work Phone: [phone] Serum or plasma creatinine m easurement (mass/volume)on 08-15-2022 Creatinine [Mass/Vol] 1.12 mg/dL 0.70-1.30 [facility] Work Phone: Comment on above: The validity of the calculated GFR & GFRAA in patients over 70 years has not been determined. Clinical correlation is essential. Serum or plasma urea nitroge n measurement (mass/volume)on 08-15-2022 Urea nitrogen [Mass/Vol] 8 mg/dL 7-18 [facility] Work Phone: Thin prep Papanicolaou smear with manual screeningon 08-15-2022 Thin prep Papanicolaou smear with manual screening 8 5-15 [facility] Work Phone: Absolute lymphocyte counton 06-29-2022 Lymphocytes Auto (Unsp spec) [#/Vol] 2.07 10*3/uL 0.83-4.51 [facility] Work Phone: Basophil percentageon 2021 Basophil percentage 0 SEEN /hpf 0-5 [facility] Work Phone: Basophils/100 WBC (Bld) 0.7 % 0-1 [facility] Work Phone: Chloride [Moles/Vol] 105 mmol/L 98-107 [facility] Work Phone: Eosinophils/100 WBC (Bld) 0.7 % 0-5 [facility] Work Phone: Glucose [Mass/Vol] 105 mg/dL 74-106 [facility] Work Phone: Comment on above: Fasting Glucose resu lt from 100 to 125 mg/dL suggests IMPAIRED HOMEOSTASIS per A.D.A. criteria. Neutrophils (Bld) [#/Vol] 4.0 10*3/uL 2.0-7.7 [facility] Work Phone: Neutrophils/100 WBC (Bld) 57.9 % 47-70 [facility] Work Phone: Potassium [Moles/Vol] 4.0 mmol/L 3.5-5.1 [facility] Work Phone: Sodium [Moles/Vol] 135 mmol/L 136-145 [facility] Work Phone: WBC (Bld) [#/Vol] 6.9 10*3/uL 4.4-11.0 [facility] Work Phone: Bilirubin Test strip Ql (U)o n 06-29-2022 Bilirubin Ql (U) Negative Negative [facility] Work Phone: Blood erythrocytes count (nu mber/volume)on 06-29-2022 RBC (Bld) [#/Vol] 4.21 10*6/uL 4.6-6.2 [facility] Work Phone: Blood hemoglobin measurement (mass/volume)on 06-29-2022 Hemoglobin (Bld) [Mass/Vol] 13.7 g/dL 13.0-16.5 [facility] Work Phone: [phone] Blood lymphocytes/100 leukoc yteson 06-29-2022 Lymphocytes/100 WBC (Bld) 30.1 % 19-41 [facility] Work Phone: [phone] Blood monocytes/100 leukocyt eson 06-29-2022 Monocytes/100 WBC (Bld) 10.2 % 0-10 [facility] Work Phone: Blood platelet mean volumeon 06-29-2022 Platelet mean volume (Bld) [Entitic vol] 9.2 fL 6.2-12.0 [facility] Work Phone: Determination of erythrocyte mean corpuscular volume (MCV)on 06-29-2022 MCV (RBC) [Entitic vol] 94.1 fL 80-94 [facility] Work Phone: Hematocrit Auto (Bld) [Volum e fraction]on 06-29-2022 Hematocrit (Bld) [Volume fraction] 39.6 % 40-54 [facility] Work Phone: Ketones Test strip Ql (U)on 06-29-2022 Ketones Ql (U) Negative Negative [facility] Work Phone: [phone] Laboratory - Chemistry and C hemistry - challengeon 06-29-2022 CO2 [Moles/Vol] 24.0 mmol/L 21.0-32.0 [facility] Work Phone: [phone] Urea nitrogen/Creatinine [Mass ratio] 15.0 mg/mg 10-20 [facility] Work Phone: [phone] Laboratory - Hematology and Cell countson 06-29-2022 Erythrocyte distribution width (RBC) [Entitic vol] 43.7 fL 35.1-43.9 [facility] Work Phone: [phone] Erythrocyte distribution width (RBC) [Ratio] 12.8 % 11.6-14.6 [facility] Work Phone: [phone] Immature granulocytes/100 WBC (Bld) 0.400 % 0.0-0.9 [facility] Work Phone: [phone] Comment on above: IG% - Immature Granu locytes (promyelocytes, myelocytes and metamyelocytes) > 1% indicates that a LEFT SHIFT is Present. MCH (RBC) [Entitic mass] 32.5 pg 27.0-32.0 [facility] Work Phone: [phone] Nucleated RBC/100 WBC (Bld) [Ratio] 0 % 0-5 [facility] Work Phone: [phone] MCHC Auto (RBC) [Mass/Vol]on 06-29-2022 MCHC (RBC) [Mass/Vol] 34.6 g/dL 32-36 [facility] Work Phone: [phone] Mucus LM Ql (Urine sed)on Mucus Ql (Urine sed) 0 SEEN /hpf [facility] Work Phone: [phone] Nitrite Test strip Ql (U)on 06-29-2022 Nitrite Ql (U) Negative Negative [facility] Work Phone: [phone] Panel Informationon 06-29 Estimated Creatinine Clearance Calc 75.08 ml/min [facility] Work Phone: [phone] Estimated GFR (MDRD) Amer 105 mL/min >60 [facility] Work Phone: Comment on above: GFR Calc Estimated GFR (MDRD) Non-Af Amer 87 mL/min >60 [facility] Work Phone: Comment on above: Non- GFR Calc Troponin I High Sensitivity 4 pg/mL 3.0-78.0 [facility] Work Phone: Comment on above: Please Note: New [place] Units and Gender Specific Reference Ranges. For more information see Policy Stat Procedure [place] High Sensitivity Troponin (TNIH) and attachments. Platelets bldon 06-29-2022 Platelets (Bld) [#/Vol] 326 10*3/uL 150-450 [facility] Work Phone: Protein Test strip Ql (U)on 06-29-2022 Protein Ql (U) Negative Negative [facility] Work Phone: Serum or plasma calcium mayte urement (mass/volume)on 06-29-2022 Calcium [Mass/Vol] 9.0 mg/dL 8.5-10.1 [facility] Work Phone: Serum or plasma creatinine m easurement (mass/volume)on 06-29-2022 Creatinine [Mass/Vol] 1.00 mg/dL 0.70-1.30 [facility] Work Phone: Comment on above: The validity of the calculated GFR & GFRAA in patients over 70 years has not been determined. Clinical correlation is essential. Serum or plasma urea nitroge n measurement (mass/volume)on 06-29-2022 Urea nitrogen [Mass/Vol] 15 mg/dL 7-18 [facility] Work Phone: [phone] Squamous epithelial cells de tection in urine sediment by light microscopyon 06-29-2022 Epithelial cells.squamous LM Ql (Urine sed) 0 SEEN /hpf 0-5 [facility] Work Phone: Thin prep Papanicolaou smear with manual screeningon 06-29-2022 Thin prep Papanicolaou smear with manual screening 6 5-15 [facility] Work Phone: [phone] Urine blood detectionon RBC Ql (U) Negative Negative [facility] Work Phone: RBC Ql (U) 0 SEEN /hpf 0-5 [facility] Work Phone: Urine clarityon 06-29-2022 Clarity (U) Clear Clear [facility] Work Phone: Urine color determinationon 06-29-2022 Color (U) Straw Yellow [facility] Work Phone: Urine glucose detectionon Glucose Ql (U) Normal mg/dl Normal [facility] Work Phone: Urine leukocyte esterase det ection by dipstickon 06-29-2022 Leukocyte esterase Test strip Ql (U) Negative Negative [facility] Work Phone: Urine pHon 06-29-2022 pH (U) 7.0 [pH] 5.0 - 8.0 [facility] Work Phone: Urine sediment bacteria coun t by microscopy (number/high power field)on 06-29-2022 Bacteria LM.HPF (Urine sed) [#/Area] 0 /[HPF] None Seen [facility] Work Phone: Urine specific gravity measu rementon 06-29-2022 Specific gravity (U) [Rel density] 1.010 1.002-1.030 [facility] Work Phone: Urobilinogen Auto test strip Ql (U)on 06-29-2022 Urobilinogen Ql (U) Normal mg/dl Normal [facility] Work Phone: Absolute lymphocyte counton 04-28-2022 Lymphocytes Auto (Unsp spec) [#/Vol] 3.67 10*3/uL 0.83-4.51 [facility] Work Phone: Basophil percentageon 2021 Basophils/100 WBC (Bld) 0.7 % 0-1 [facility] Work Phone: Chloride [Moles/Vol] 101 mmol/L 98-107 [facility] Work Phone: Eosinophils/100 WBC (Bld) 1.9 % 0-5 [facility] Work Phone: Glucose [Mass/Vol] 112 mg/dL 74-106 [facility] Work Phone: Comment on above: Fasting Glucose resu lt from 100 to 125 mg/dL suggests IMPAIRED HOMEOSTASIS per A.D.A. criteria. Neutrophils (Bld) [#/Vol] 3.3 10*3/uL 2.0-7.7 [facility] Work Phone: Neutrophils/100 WBC (Bld) 39.2 % 47-70 [facility] Work Phone: Potassium [Moles/Vol] 3.6 mmol/L 3.5-5.1 [facility] Work Phone: Sodium [Moles/Vol] 135 mmol/L 136-145 [facility] Work Phone: WBC (Bld) [#/Vol] 8.3 10*3/uL 4.4-11.0 [facility] Work Phone: Blood erythrocytes count (nu mber/volume)on 04-28-2022 RBC (Bld) [#/Vol] 4.74 10*6/uL 4.6-6.2 [facility] Work Phone: Blood hemoglobin measurement (mass/volume)on 04-28-2022 Hemoglobin (Bld) [Mass/Vol] 15.0 g/dL 13.0-16.5 [facility] Work Phone: Blood lymphocytes/100 leukoc yteson 04-28-2022 Lymphocytes/100 WBC (Bld) 44.1 % 19-41 [facility] Work Phone: Blood monocytes/100 leukocyt eson 04-28-2022 Monocytes/100 WBC (Bld) 14.0 % 0-10 [facility] Work Phone: Blood platelet mean volumeon 04-28-2022 Platelet mean volume (Bld) [Entitic vol] 8.7 fL 6.2-12.0 [facility] Work Phone: [phone] Determination of erythrocyte mean corpuscular volume (MCV)on 04-28-2022 MCV (RBC) [Entitic vol] 93.5 fL 80-94 [facility] Work Phone: [phone] Hematocrit Auto (Bld) [Volum e fraction]on 04-28-2022 Hematocrit (Bld) [Volume fraction] 44.3 % 40-54 [facility] Work Phone: [phone] Laboratory - Chemistry and C hemistry - challengeon 04-28-2022 CO2 [Moles/Vol] 28.0 mmol/L 21.0-32.0 [facility] Work Phone: [phone] Urea nitrogen/Creatinine [Mass ratio] 13.0 mg/mg 10-20 [facility] Work Phone: [phone] Laboratory - Hematology and Cell countson 04-28-2022 Erythrocyte distribution width (RBC) [Entitic vol] 41.6 fL 35.1-43.9 [facility] Work Phone: [phone] Erythrocyte distribution width (RBC) [Ratio] 12.0 % 11.6-14.6 [facility] Work Phone: [phone] Immature granulocytes/100 WBC (Bld) 0.100 % 0.0-0.9 [facility] Work Phone: [phone] Comment on above: IG% - Immature Granu locytes (promyelocytes, myelocytes and metamyelocytes) > 1% indicates that a LEFT SHIFT is Present. MCH (RBC) [Entitic mass] 31.6 pg 27.0-32.0 [facility] Work Phone: [phone] Nucleated RBC/100 WBC (Bld) [Ratio] 0 % 0-5 [facility] Work Phone: [phone] MCHC Auto (RBC) [Mass/Vol]on 04-28-2022 MCHC (RBC) [Mass/Vol] 33.9 g/dL 32-36 [facility] Work Phone: [phone] Panel Informationon 04-28 Estimated Creatinine Clearance Calc 69.51 ml/min [facility] Work Phone: Estimated GFR (MDRD) Amer 97 mL/min >60 [facility] Work Phone: Comment on above: GFR Calc Estimated GFR (MDRD) Non-Af Amer 80 mL/min >60 [facility] Work Phone: Comment on above: Non- GFR Calc Troponin I High Sensitivity 3 pg/mL 3.0-78.0 [facility] Work Phone: Comment on above: Please Note: New [place] Units and Gender Specific Reference Ranges. For more information see Policy Stat Procedure [place] High Sensitivity Troponin (TNIH) and attachments. Platelets bldon 04-28-2022 Platelets (Bld) [#/Vol] 349 10*3/uL 150-450 [facility] Work Phone: Serum or plasma calcium mayte urement (mass/volume)on 04-28-2022 Calcium [Mass/Vol] 9.0 mg/dL 8.5-10.1 [facility] Work Phone: Serum or plasma creatinine m easurement (mass/volume)on 04-28-2022 Creatinine [Mass/Vol] 1.08 mg/dL 0.70-1.30 [facility] Work Phone: Comment on above: The validity of the calculated GFR & GFRAA in patients over 70 years has not been determined. Clinical correlation is essential. Serum or plasma urea nitroge n measurement (mass/volume)on 04-28-2022 Urea nitrogen [Mass/Vol] 14 mg/dL 7-18 [facility] Work Phone: [phone] Thin prep Papanicolaou smear with manual screeningon 04-28-2022 Thin prep Papanicolaou smear with manual screening 6 5-15 [facility] Work Phone: [phone] Basophil percentageon 2021 Basophil percentage 0 SEEN /hpf 0-5 [facility] Work Phone: [phone] Bilirubin Test strip Ql (U)o n 02-16-2022 Bilirubin Ql (U) Negative Negative [facility] Work Phone: [phone] Ketones Test strip Ql (U)on 02-16-2022 Ketones Ql (U) Negative Negative [facility] Work Phone: Mucus LM Ql (Urine sed)on Mucus Ql (Urine sed) 0 SEEN /hpf [facility] Work Phone: Nitrite Test strip Ql (U)on 02-16-2022 Nitrite Ql (U) Negative Negative [facility] Work Phone: Protein Test strip Ql (U)on 02-16-2022 Protein Ql (U) Negative Negative [facility] Work Phone: Squamous epithelial cells de tection in urine sediment by light microscopyon 02-16-2022 Epithelial cells.squamous LM Ql (Urine sed) 0 SEEN /hpf 0-5 [facility] Work Phone: Urine blood detectionon 01-24 RBC Ql (U) Negative Negative [facility] Work Phone: RBC Ql (U) 0 SEEN /hpf 0-5 [facility] Work Phone: Urine clarityon 02-16-2022 Clarity (U) Clear Clear [facility] Work Phone: Urine color determinationon 02-16-2022 Color (U) Yellow Yellow [facility] Work Phone: Urine glucose detectionon Glucose Ql (U) Normal mg/dl Normal [facility] Work Phone: Urine leukocyte esterase det ection by dipstickon 02-16-2022 Leukocyte esterase Test strip Ql (U) Negative Negative [facility] Work Phone: Urine pHon 02-16-2022 pH (U) 6.0 [pH] 5.0 - 8.0 [facility] Work Phone: Urine sediment bacteria coun t by microscopy (number/high power field)on 02-16-2022 Bacteria LM.HPF (Urine sed) [#/Area] 0 /[HPF] None Seen [facility] Work Phone: Urine specific gravity measu rementon 02-16-2022 Specific gravity (U) [Rel density] 1.015 1.002-1.030 [facility] Work Phone: Urobilinogen Auto test strip Ql (U)on 02-16-2022 Urobilinogen Ql (U) Normal mg/dl Normal [facility] Work Phone: Absolute lymphocyte counton 02-15-2022 Lymphocytes Auto (Unsp spec) [#/Vol] 1.98 10*3/uL 0.83-4.51 [facility] Work Phone: Basophil percentageon 2021 Basophils/100 WBC (Bld) 0.3 % 0-1 [facility] Work Phone: Chloride [Moles/Vol] 98 mmol/L 98-107 [facility] Work Phone: Eosinophils/100 WBC (Bld) 0.2 % 0-5 [facility] Work Phone: Glucose [Mass/Vol] 122 mg/dL 74-106 [facility] Work Phone: Comment on above: Fasting Glucose resu lt from 100 to 125 mg/dL suggests IMPAIRED HOMEOSTASIS per A.D.A. criteria. Neutrophils (Bld) [#/Vol] 8.7 10*3/uL 2.0-7.7 [facility] Work Phone: Neutrophils/100 WBC (Bld) 69.5 % 47-70 [facility] Work Phone: Potassium [Moles/Vol] 3.9 mmol/L 3.5-5.1 [facility] Work Phone: Sodium [Moles/Vol] 129 mmol/L 136-145 [facility] Work Phone: WBC (Bld) [#/Vol] 12.6 10*3/uL 4.4-11.0 [facility] Work Phone: Blood erythrocytes count (nu mber/volume)on 02-15-2022 RBC (Bld) [#/Vol] 4.37 10*6/uL 4.6-6.2 [facility]: Blood hemoglobin measurement (mass/volume)on 02-15-2022 Hemoglobin (Bld) [Mass/Vol] 14.3 g/dL 13.0-16.5 [facility] Work Phone: Blood lymphocytes/100 leukoc yteson 02-15-2022 Lymphocytes/100 WBC (Bld) 15.8 % 19-41 [facility] Work Phone: [phone] Blood monocytes/100 leukocyt eson 02-15-2022 Monocytes/100 WBC (Bld) 14.0 % 0-10 [facility] Work Phone: Blood platelet mean volumeon 02-15-2022 Platelet mean volume (Bld) [Entitic vol] 9.0 fL 6.2-12.0 [facility] Work Phone: Determination of erythrocyte mean corpuscular volume (MCV)on 02-15-2022 MCV (RBC) [Entitic vol] 92.9 fL 80-94 [facility] Work Phone: Hematocrit Auto (Bld) [Volum e fraction]on 02-15-2022 Hematocrit (Bld) [Volume fraction] 40.6 % 40-54 [facility] Work Phone: Laboratory - Chemistry and C hemistry - challengeon 02-15-2022 CO2 [Moles/Vol] 23.0 mmol/L 21.0-32.0 [facility] Work Phone: Urea nitrogen/Creatinine [Mass ratio] 12.8 mg/mg 10-20 [facility] Work Phone: Laboratory - Hematology and Cell countson 02-15-2022 Erythrocyte distribution width (RBC) [Entitic vol] 40.8 fL 35.1-43.9 [facility] Work Phone: [phone] Erythrocyte distribution width (RBC) [Ratio] 11.9 % 11.6-14.6 [facility] Work Phone: Immature granulocytes/100 WBC (Bld) 0.200 % 0.0-0.9 [facility] Work Phone: Comment on above: IG% - Immature Granu locytes (promyelocytes, myelocytes and metamyelocytes) > 1% indicates that a LEFT SHIFT is Present. MCH (RBC) [Entitic mass] 32.7 pg 27.0-32.0 [facility] Work Phone: Nucleated RBC/100 WBC (Bld) [Ratio] 0 % 0-5 [facility] Work Phone: [phone] MCHC Auto (RBC) [Mass/Vol]on 02-15-2022 MCHC (RBC) [Mass/Vol] 35.2 g/dL 32-36 [facility] Work Phone: No Panel Informationon 02-15 Troponin I High Sensitivity 3 pg/mL 3.0-78.0 [facility] Work Phone: Comment on above: Please Note: New [place] Units and Gender Specific Reference Ranges. For more information see Policy Stat Procedure [place] High Sensitivity Troponin (TNIH) and attachments. SARS-CoV-2 & FLU Antigen (Rapid) [facility] Work Phone: D-Dimer Quantitative (PE/DVT) 0.35 FEU/ug/m 0.27-0.49 [facility] Work Phone: Comment on above: NORMAL D-Dimer level (<0.50) indicates no DVT or PE. Estimated Creatinine Clearance Calc 68.88 ml/min [facility] Work Phone: Estimated GFR (MDRD) Amer 96 mL/min >60 [facility] Work Phone: Comment on above: GFR Calc Estimated GFR (MDRD) Non-Af Amer 79 mL/min >60 [facility] Work Phone: [phone] Comment on above: Non- GFR Calc Thyroid Stimulating Hormone (TSH) 2.99 uIU/mL 0.358-3.74 [facility] Work Phone: [phone] Platelets bldon 02-15-2022 Platelets (Bld) [#/Vol] 254 10*3/uL 150-450 [facility] Work Phone: Review by pathologiston 01-24 Pathologist review Jose (Unsp spec) [Interp] Reviewed [facility] Work Phone: Comment on above: Previous reported re sult: Terrie gaudenico Edited by: [email or web address] on 02/16/22:1146Leukocytosis. Clinical correlation necessary.Arash Carvalho M.D. 02/16/22 AMENDED REPORT 02/16/22 [id number] PATH REV previously reported as: Terrie ratliff Serum or plasma calcium mayte urement (mass/volume)on 02-15-2022 Calcium [Mass/Vol] 8.3 mg/dL 8.5-10.1 [facility] Work Phone: Serum or plasma creatinine m easurement (mass/volume)on 02-15-2022 Creatinine [Mass/Vol] 1.09 mg/dL 0.70-1.30 [facility] Work Phone: Comment on above: The validity of the calculated GFR & GFRAA in patients over 70 years has not been determined. Clinical correlation is essential. Serum or plasma urea nitroge n measurement (mass/volume)on 02-15-2022 Urea nitrogen [Mass/Vol] 14 mg/dL 7-18 [facility] Work Phone: Thin prep Papanicolaou smear with manual screeningon 02-15-2022 Thin prep Papanicolaou smear with manual screening 8 5-15 [facility] Work Phone: Absolute lymphocyte counton 01-27-2022 Lymphocytes Auto (Unsp spec) [#/Vol] 2.02 10*3/uL 0.83-4.51 [facility] Work Phone: Basophil percentageon 2021 Basophils/100 WBC (Bld) 0.6 % 0-1 [facility] Work Phone: Chloride [Moles/Vol] 106 mmol/L 98-107 [facility] Work Phone: Eosinophils/100 WBC (Bld) 0.7 % 0-5 [facility] Work Phone: Glucose [Mass/Vol] 92 mg/dL 74-106 [facility] Work Phone: Neutrophils (Bld) [#/Vol] 5.6 10*3/uL 2.0-7.7 [facility] Work Phone: Neutrophils/100 WBC (Bld) 64.7 % 47-70 [facility] Work Phone: Potassium [Moles/Vol] 3.6 mmol/L 3.5-5.1 [facility] Work Phone: Sodium [Moles/Vol] 138 mmol/L 136-145 [facility] Work Phone: WBC (Bld) [#/Vol] 8.6 10*3/uL 4.4-11.0 [facility] Work Phone: Blood erythrocytes count (nu mber/volume)on 01-27-2022 RBC (Bld) [#/Vol] 4.51 10*6/uL 4.6-6.2 [facility] Work Phone: Blood hemoglobin measurement (mass/volume)on 01-27-2022 Hemoglobin (Bld) [Mass/Vol] 15.1 g/dL 13.0-16.5 [facility] Work Phone: Blood lymphocytes/100 leukoc yteson 01-27-2022 Lymphocytes/100 WBC (Bld) 23.4 % 19-41 [facility] Work Phone: Blood monocytes/100 leukocyt eson 01-27-2022 Monocytes/100 WBC (Bld) 10.4 % 0-10 [facility] Work Phone: Blood platelet mean volumeon 01-27-2022 Platelet mean volume (Bld) [Entitic vol] 8.6 fL 6.2-12.0 [facility] Work Phone: Determination of erythrocyte mean corpuscular volume (MCV)on 01-27-2022 MCV (RBC) [Entitic vol] 93.3 fL 80-94 [facility] Work Phone: [phone] Hematocrit Auto (Bld) [Volum e fraction]on 01-27-2022 Hematocrit (Bld) [Volume fraction] 42.1 % 40-54 [facility] Work Phone: [phone] Laboratory - Chemistry and C hemistry - challengeon 01-27-2022 CO2 [Moles/Vol] 28.0 mmol/L 21.0-32.0 [facility] Work Phone: [phone] Urea nitrogen/Creatinine [Mass ratio] 8.5 mg/mg 10-20 [facility] Work Phone: [phone] Laboratory - Hematology and Cell countson 01-27-2022 Erythrocyte distribution width (RBC) [Entitic vol] 42.5 fL 35.1-43.9 [facility] Work Phone: [phone] Erythrocyte distribution width (RBC) [Ratio] 12.4 % 11.6-14.6 [facility] Work Phone: [phone] Immature granulocytes/100 WBC (Bld) 0.200 % 0.0-0.9 [facility] Work Phone: [phone] Comment on above: IG% - Immature Granu locytes (promyelocytes, myelocytes and metamyelocytes) > 1% indicates that a LEFT SHIFT is Present. MCH (RBC) [Entitic mass] 33.5 pg 27.0-32.0 [facility] Work Phone: [phone] Nucleated RBC/100 WBC (Bld) [Ratio] 0 % 0-5 [facility] Work Phone: [phone] MCHC Auto (RBC) [Mass/Vol]on 01-27-2022 MCHC (RBC) [Mass/Vol] 35.9 g/dL 32-36 [facility] Work Phone: [phone] Panel Informationon 01-27 Estimated Creatinine Clearance Calc 70.83 ml/min [facility] Work Phone: [phone] Estimated GFR (MDRD) Amer 99 mL/min >60 [facility] Work Phone: Comment on above: GFR Calc Estimated GFR (MDRD) Non-Af Amer 82 mL/min >60 [facility] Work Phone: Comment on above: Non- GFR Calc Platelets bldon 01-27-2022 Platelets (Bld) [#/Vol] 313 10*3/uL 150-450 [facility] Work Phone: Serum or plasma calcium mayte urement (mass/volume)on 01-27-2022 Calcium [Mass/Vol] 9.2 mg/dL 8.5-10.1 [facility] Work Phone: Serum or plasma creatinine m easurement (mass/volume)on 01-27-2022 Creatinine [Mass/Vol] 1.06 mg/dL 0.70-1.30 [facility] Work Phone: Comment on above: The validity of the calculated GFR & GFRAA in patients over 70 years has not been determined. Clinical correlation is essential. Serum or plasma urea nitroge n measurement (mass/volume)on 01-27-2022 Urea nitrogen [Mass/Vol] 9 mg/dL 7-18 [facility] Work Phone: Thin prep Papanicolaou smear with manual screeningon 01-27-2022 Thin prep Papanicolaou smear with manual screening 4 5-15 [facility] Work Phone: Basophil percentageon 2021 Basophil percentage 0 SEEN /hpf [facility] Work Phone: Bilirubin Test strip Ql (U)o n 01-10-2022 Bilirubin Ql (U) Negative Negative [facility] Work Phone: Ketones Test strip Ql (U)on 01-10-2022 Ketones Ql (U) Negative Negative [facility] Work Phone: Mucus LM Ql (Urine sed)on Mucus Ql (Urine sed) 0 SEEN /hpf [facility] Work Phone: Nitrite Test strip Ql (U)on 01-10-2022 Nitrite Ql (U) Negative Negative [facility] Work Phone: Protein Test strip Ql (U)on 01-10-2022 Protein Ql (U) Negative Negative [facility] Work Phone: Squamous epithelial cells de tection in urine sediment by light microscopyon 01-10-2022 Epithelial cells.squamous LM Ql (Urine sed) 0 SEEN /hpf [facility] Work Phone: Urine blood detectionon 12-26 RBC Ql (U) Negative Negative [facility] Work Phone: RBC Ql (U) 0 SEEN /hpf [facility] Work Phone: Urine clarityon 01-10-2022 Clarity (U) Clear Clear [facility] Work Phone: Urine color determinationon 01-10-2022 Color (U) Yellow Yellow [facility] Work Phone: Urine glucose detectionon Glucose Ql (U) Normal mg/dl Normal [facility] Work Phone: Urine leukocyte esterase det ection by dipstickon 01-10-2022 Leukocyte esterase Test strip Ql (U) Negative Negative [facility] Work Phone: Urine pHon 01-10-2022 pH (U) 6.0 [pH] [facility] Work Phone: Urine sediment bacteria coun t by microscopy (number/high power field)on 01-10-2022 Bacteria LM.HPF (Urine sed) [#/Area] 0 /[HPF] None Seen [facility] Work Phone: Urine specific gravity measu rementon 01-10-2022 Specific gravity (U) [Rel density] 1.010 [facility] Work Phone: Urobilinogen Auto test strip Ql (U)on 01-10-2022 Urobilinogen Ql (U) Normal mg/dl Normal [facility] Work Phone: Absolute lymphocyte counton 01-03-2022 Lymphocytes Auto (Unsp spec) [#/Vol] 3.09 10*3/uL 0.83-4.51 [facility] Work Phone: Basophil percentageon 2021 Basophils/100 WBC (Bld) 0.8 % 0-1 [facility] Work Phone: Chloride [Moles/Vol] 104 mmol/L 98-107 [facility] Work Phone: Eosinophils/100 WBC (Bld) 2.7 % 0-5 [facility] Work Phone: Glucose [Mass/Vol] 115 mg/dL 74-106 [facility] Work Phone: Comment on above: Fasting Glucose resu lt from 100 to 125 mg/dL suggests IMPAIRED HOMEOSTASIS per A.D.A. criteria. Neutrophils (Bld) [#/Vol] 3.9 10*3/uL 2.0-7.7 [facility] Work Phone: Neutrophils/100 WBC (Bld) 46.5 % 47-70 [facility] Work Phone: Potassium [Moles/Vol] 3.5 mmol/L 3.5-5.1 [facility] Work Phone: Sodium [Moles/Vol] 137 mmol/L 136-145 [facility] Work Phone: WBC (Bld) [#/Vol] 8.4 10*3/uL 4.4-11.0 [facility] Work Phone: Blood erythrocytes count (nu mber/volume)on 01-03-2022 RBC (Bld) [#/Vol] 4.61 10*6/uL 4.6-6.2 [facility] Work Phone: Blood hemoglobin measurement (mass/volume)on 01-03-2022 Hemoglobin (Bld) [Mass/Vol] 14.6 g/dL 13.0-16.5 [facility] Work Phone: Blood lymphocytes/100 leukoc yteson 01-03-2022 Lymphocytes/100 WBC (Bld) 36.9 % 19-41 [facility] Work Phone: Blood monocytes/100 leukocyt eson 01-03-2022 Monocytes/100 WBC (Bld) 12.9 % 0-10 [facility] Work Phone: [phone] Blood platelet mean volumeon 01-03-2022 Platelet mean volume (Bld) [Entitic vol] 8.8 fL 6.2-12.0 [facility] Work Phone: [phone] Determination of erythrocyte mean corpuscular volume (MCV)on 01-03-2022 MCV (RBC) [Entitic vol] 93.7 fL 80-94 [facility] Work Phone: [phone] Hematocrit Auto (Bld) [Volum e fraction]on 01-03-2022 Hematocrit (Bld) [Volume fraction] 43.2 % 40-54 [facility] Work Phone: Laboratory - Chemistry and C hemistry - challengeon 01-03-2022 CO2 [Moles/Vol] 26.0 mmol/L 21.0-32.0 [facility] Work Phone: [phone] Urea nitrogen/Creatinine [Mass ratio] 11.4 mg/mg 10-20 [facility] Work Phone: [phone] Laboratory - Hematology and Cell countson 01-03-2022 Erythrocyte distribution width (RBC) [Entitic vol] 43.9 fL 35.1-43.9 [facility] Work Phone: [phone] Erythrocyte distribution width (RBC) [Ratio] 12.9 % 11.6-14.6 [facility] Work Phone: [phone] Immature granulocytes/100 WBC (Bld) 0.200 % 0.0-0.9 [facility] Work Phone: [phone] Comment on above: IG% - Immature Granu locytes (promyelocytes, myelocytes and metamyelocytes) > 1% indicates that a LEFT SHIFT is Present. MCH (RBC) [Entitic mass] 31.7 pg 27.0-32.0 [facility] Work Phone: Nucleated RBC/100 WBC (Bld) [Ratio] 0 % 0-5 [facility] Work Phone: [phone] MCHC Auto (RBC) [Mass/Vol]on 01-03-2022 MCHC (RBC) [Mass/Vol] 33.8 g/dL 32-36 [facility] Work Phone: No Panel Informationon 01-03 Troponin I High Sensitivity 5 pg/mL 3.0-78.0 [facility] Work Phone: Comment on above: Please Note: New [place] Units and Gender Specific Reference Ranges. For more information see Policy Stat Procedure [place] High Sensitivity Troponin (TNIH) and attachments. D-Dimer Quantitative (PE/DVT) <= 0.27 FEU/ug/m 0.27-0.49 [facility] Work Phone: Comment on above: NORMAL D-Dimer level (<0.50) indicates no DVT or PE. Estimated Creatinine Clearance Calc 74.51 ml/min [facility] Work Phone: Estimated GFR (MDRD) Amer 100 mL/min >60 [facility] Work Phone: Comment on above: GFR Calc Estimated GFR (MDRD) Non-Af Amer 83 mL/min >60 [facility] Work Phone: Comment on above: Non- GFR Calc Platelets bldon 01-03-2022 Platelets (Bld) [#/Vol] 348 10*3/uL 150-450 [facility] Work Phone: Serum or plasma calcium mayte urement (mass/volume)on 01-03-2022 Calcium [Mass/Vol] 8.8 mg/dL 8.5-10.1 [facility] Work Phone: [phone] Serum or plasma creatinine m easurement (mass/volume)on 01-03-2022 Creatinine [Mass/Vol] 1.05 mg/dL 0.70-1.30 [facility] Work Phone: Comment on above: The validity of the calculated GFR & GFRAA in patients over 70 years has not been determined. Clinical correlation is essential. Serum or plasma urea nitroge n measurement (mass/volume)on 02-09-2022 Urea nitrogen [Mass/Vol] 12 mg/dL 7-18 [facility] Work Phone: Thin prep Papanicolaou smear with manual screeningon 01-03-2022 Thin prep Papanicolaou smear with manual screening 7 5-15 [facility] Work Phone: No Panel Information SARS-CoV-2 & FLU Antigen (Rapid) [facility] Work Phone: Vital Signs Date Time Vital Sign Value Performing Clinician Facility 04-30-2025 22:56-0400 Body temperature 97.8 [degF] Vivien Podlogar INTERNATIONAL LOGISTICS COORDINATOR-C Work Phone: [facility] 04-30-2025 22:56-0400 Diastolic blood pressure 64 mm[Hg] Vivien Podlogar INTERNATIONAL LOGISTICS COORDINATOR-C Work Phone: [facility] 04-30-2025 22:56-0400 Heart rate 78 /min Vivien Podlogar INTERNATIONAL LOGISTICS COORDINATOR-C Work Phone: [facility] 04-30-2025 22:56-0400 Respiratory rate 16 /min Vivien Podlogar INTERNATIONAL LOGISTICS COORDINATOR-C Work Phone: [facility] 04-30-2025 22:56-0400 SaO2% (BldA) [Mass fraction] 97 % Vivien Podlogar INTERNATIONAL LOGISTICS COORDINATOR-C Work Phone: [facility] 04-30-2025 22:56-0400 Systolic blood pressure 123 mm[Hg] Vivien Podlogar INTERNATIONAL LOGISTICS COORDINATOR-C Work Phone: [facility] 04-30-2025 19:54-0400 Body height 157.48 cm Vivien Podlogar INTERNATIONAL LOGISTICS COORDINATOR-C Work Phone: [facility] 04-30-2025 19:54-0400 Body mass index (BMI) [Ratio] 36.2 kg/m2 Vivien Podlogar INTERNATIONAL LOGISTICS COORDINATOR-C Work Phone: [facility] 04-30-2025 19:54-0400 Body weight 89.94 kg Vivien Podlogar INTERNATIONAL LOGISTICS COORDINATOR-C Work Phone: [facility] 02-03-2025 13:24-0400 Body mass index (BMI) [Ratio] 36.8 kg/m2 Shahana Vasquez EMERGENCY WORKER.CARD GRADER Work Phone: [facility] 02-03-2025 13:24-0400 Body temperature 98.71 [degF] Shahana Vasquez EMERGENCY WORKER.CARD GRADER Work Phone: [facility] 02-03-2025 13:24-0400 Body weight 94.2 kg Shahana Vasquez EMERGENCY WORKER.CARD GRADER Work Phone: [facility] 02-03-2025 13:24-0400 Diastolic blood pressure 78 mm[Hg] Shahana Vasquez EMERGENCY WORKER.CARD GRADER Work Phone: [facility] 02-03-2025 13:24-0400 Heart rate 113 /min Shahana Vasquez EMERGENCY WORKER.CARD GRADER Work Phone: [facility] 02-03-2025 13:24-0400 Respiratory rate 16 /min Shahana Vasquez EMERGENCY WORKER.CARD GRADER Work Phone: [facility] 02-03-2025 13:24-0400 SaO2% (BldA) [Mass fraction] 99 % Shahana Vasquez EMERGENCY WORKER.CARD GRADER Work Phone: [facility] 02-03-2025 13:24-0400 Systolic blood pressure 122 mm[Hg] Shahana Vasquez EMERGENCY WORKER.CARD GRADER Work Phone: [facility] 02-02-2025 15:00-0400 Heart rate 78 /min Vivien Podlogar INTERNATIONAL LOGISTICS COORDINATOR-C Work Phone: [facility] 02-02-2025 15:00-0400 Respiratory rate 18 /min Vivien Podlogar INTERNATIONAL LOGISTICS COORDINATOR-C Work Phone: [facility] 02-02-2025 15:00-0400 SaO2% (BldA) [Mass fraction] 98 % Vivien Podlogar INTERNATIONAL LOGISTICS COORDINATOR-C Work Phone: [facility] 02-02-2025 13:00-0400 Body height 157.48 cm Vivien Podlogar INTERNATIONAL LOGISTICS COORDINATOR-C Work Phone: [facility] 02-02-2025 13:00-0400 Body mass index (BMI) [Ratio] 37 kg/m2 Vivien Podlogar INTERNATIONAL LOGISTICS COORDINATOR-C Work Phone: [facility] 02-02-2025 13:00-0400 Body temperature 97.5 [degF] Vivien Podlogar INTERNATIONAL LOGISTICS COORDINATOR-C Work Phone: [facility] 02-02-2025 13:00-0400 Body weight 91.76 kg Vivien Podlogar INTERNATIONAL LOGISTICS COORDINATOR-C Work Phone: [facility] 02-02-2025 13:00-0400 Diastolic blood pressure 80 mm[Hg] Vivien Podlogar INTERNATIONAL LOGISTICS COORDINATOR-C Work Phone: [facility] 02-02-2025 13:00-0400 Systolic blood pressure 133 mm[Hg] Vivien Podlogar INTERNATIONAL LOGISTICS COORDINATOR-C Work Phone: [facility] 02-02-2025 08:30-0400 Body mass index (BMI) [Ratio] 35.94 kg/m2 Shahana Vasquez EMERGENCY WORKER.CARD GRADER Work Phone: [facility] 02-02-2025 08:30-0400 Body temperature 97 [degF] Shahana Vasquez EMERGENCY WORKER.CARD GRADER Work Phone: [facility] 02-02-2025 08:30-0400 Body weight 92 kg Shahana Vasquez EMERGENCY WORKER.CARD GRADER Work Phone: [facility] 02-02-2025 08:30-0400 Diastolic blood pressure 84 mm[Hg] Shahana Vasquez EMERGENCY WORKER.CARD GRADER Work Phone: [facility] 02-02-2025 08:30-0400 Heart rate 87 /min Shahana Vasquez EMERGENCY WORKER.CARD GRADER Work Phone: [facility] 02-02-2025 08:30-0400 Respiratory rate 20 /min Shahana Vasquez EMERGENCY WORKER.CARD GRADER Work Phone: [facility] 02-02-2025 08:30-0400 SaO2% (BldA) [Mass fraction] 99 % Shahana Colin EMERGENCY WORKER.CARD GRADER Work Phone: [facility] 02-02-2025 08:30-0400 Systolic blood pressure 121 mm[Hg] Shahana Vasquez EMERGENCY WORKER.CARD GRADER Work Phone: [facility] 01-26-2025 09:38-0500 Body temperature 97.9 [degF] Vivien Podlogar INTERNATIONAL LOGISTICS COORDINATOR-C Work Phone: [facility] 01-26-2025 09:38-0500 Diastolic blood pressure 88 mm[Hg] Vivien Podlogar INTERNATIONAL LOGISTICS COORDINATOR-C Work Phone: [facility] 01-26-2025 09:38-0500 Heart rate 90 /min Vivien Podlogar INTERNATIONAL LOGISTICS COORDINATOR-C Work Phone: [facility] 01-26-2025 09:38-0500 Respiratory rate 16 /min Vivien Podlogar INTERNATIONAL LOGISTICS COORDINATOR-C Work Phone: [facility] 01-26-2025 09:38-0500 SaO2% (BldA) [Mass fraction] 100 % Vivien Podlogar INTERNATIONAL LOGISTICS COORDINATOR-C Work Phone: [facility] 01-26-2025 09:38-0500 Systolic blood pressure 121 mm[Hg] Vivien Podlogar INTERNATIONAL LOGISTICS COORDINATOR-C Work Phone: [facility] 01-26-2025 07:00-0500 Body mass index (BMI) [Ratio] 37.1 kg/m2 Vivien Podlogar INTERNATIONAL LOGISTICS COORDINATOR-C Work Phone: [facility] 01-26-2025 07:00-0500 Body weight 92.1 kg Vivien Podlogar INTERNATIONAL LOGISTICS COORDINATOR-C Work Phone: [facility] 10-10-2024 22:43-0500 Body temperature 97.9 [degF] Vivien Podlogar INTERNATIONAL LOGISTICS COORDINATOR-C Work Phone: [facility] 10-10-2024 22:43-0500 Diastolic blood pressure 68 mm[Hg] Vivien Podlogar INTERNATIONAL LOGISTICS COORDINATOR-C Work Phone: [facility] 10-10-2024 22:43-0500 Heart rate 76 /min Vivien Podlogar INTERNATIONAL LOGISTICS COORDINATOR-C Work Phone: [facility] 10-10-2024 22:43-0500 Respiratory rate 18 /min Vivien Podlogar INTERNATIONAL LOGISTICS COORDINATOR-C Work Phone: [facility] 10-10-2024 22:43-0500 SaO2% (BldA) [Mass fraction] 98 % Vivien Podlogar INTERNATIONAL LOGISTICS COORDINATOR-C Work Phone: [facility] 10-10-2024 22:43-0500 Systolic blood pressure 113 mm[Hg] Vivien Podlogar INTERNATIONAL LOGISTICS COORDINATOR-C Work Phone: [facility] 10-10-2024 19:20-0500 Body mass index (BMI) [Ratio] 37.7 kg/m2 Vivien Podlogar INTERNATIONAL LOGISTICS COORDINATOR-C Work Phone: [facility] 10-10-2024 19:20-0500 Body weight 93.53 kg Vivien Podlogar INTERNATIONAL LOGISTICS COORDINATOR-C Work Phone: [facility] 04-15-2024 09:09-0400 Body mass index (BMI) [Ratio] 34.94 kg/m2 Vivien Podlogar EMERGENCY WORKER.CARD GRADER Work Phone: [facility] 04-15-2024 09:09-0400 Body weight 89.45 kg Vivien Podlogar EMERGENCY WORKER.CARD GRADER Work Phone: [facility] 04-15-2024 09:09-0400 Diastolic blood pressure 78 mm[Hg] Vivien Podlogar EMERGENCY WORKER.CARD GRADER Work Phone: [facility] 04-15-2024 09:09-0400 Heart rate 73 /min Vivien Podlogar EMERGENCY WORKER.CARD GRADER Work Phone: [facility] 04-15-2024 09:09-0400 Respiratory rate 18 /min Vivien Podlogar EMERGENCY WORKER.CARD GRADER Work Phone: [facility] 04-15-2024 09:09-0400 SaO2% (BldA) [Mass fraction] 97 % Vivien Podlogar EMERGENCY WORKER.CARD GRADER Work Phone: [facility] 04-15-2024 09:09-0400 Systolic blood pressure 118 mm[Hg] Vivien Podlogar EMERGENCY WORKER.CARD GRADER Work Phone: [facility] 03-18-2024 10:00-0400 Diastolic blood pressure 78 mm[Hg] Vivien Podlogar EMERGENCY WORKER.CARD GRADER Work Phone: [facility] Comment on above: [facility] BP 03-18-2024 10:00-0400 Heart rate 67 /min Vivien Podlogar EMERGENCY WORKER.CARD GRADER Work Phone: [facility] 03-18-2024 10:00-0400 Systolic blood pressure 146 mm[Hg] Vivien Podlogar EMERGENCY WORKER.CARD GRADER Work Phone: [facility] Comment on above: CHRIS BP 03-18-2024 09:23-0400 Body height 160 cm Vivien Podlogar EMERGENCY WORKER.CARD GRADER Work Phone: [facility] 03-18-2024 09:23-0400 Body mass index (BMI) [Ratio] 36.18 kg/m2 Vivien Podlogar EMERGENCY WORKER.CARD GRADER Work Phone: [facility] 03-18-2024 09:23-0400 Body weight 92.63 kg Vivien Podlogar EMERGENCY WORKER.CARD GRADER Work Phone: [facility] 03-18-2024 09:23-0400 Respiratory rate 16 /min Vivien Podlogar EMERGENCY WORKER.CARD GRADER Work Phone: [facility] 03-18-2024 09:23-0400 SaO2% (BldA) [Mass fraction] 98 % Vivien Podlogar EMERGENCY WORKER.CARD GRADER Work Phone: [facility] 12-26-2023 14:32-0500 Body height 157.48 cm [facility] 12-26-2023 14:32-0500 Body mass index (BMI) [Ratio] 37.9 kg/m2 [facility] 12-26-2023 14:32-0500 Body temperature 98.3 [degF] [facility] 12-26-2023 14:32-0500 Body weight 93.98 kg [facility] 12-26-2023 14:32-0500 Diastolic blood pressure 96 mm[Hg] [facility] 12-26-2023 14:32-0500 Heart rate 91 /min [facility] 12-26-2023 14:32-0500 Respiratory rate 18 /min [facility] 12-26-2023 14:32-0500 SaO2% (BldA) [Mass fraction] 100 % [facility] 12-26-2023 14:32-0500 Systolic blood pressure 150 mm[Hg] [facility] 09-24-2023 22:14-0400 Heart rate 68 /min [facility] 09-24-2023 22:14-0400 Respiratory rate 16 /min [facility] 09-24-2023 22:14-0400 SaO2% (BldA) [Mass fraction] 97 % [facility] 09-24-2023 18:14-0400 Body height 157.48 cm [facility] 09-24-2023 18:14-0400 Body mass index (BMI) [Ratio] 38 kg/m2 [facility] 09-24-2023 18:14-0400 Body temperature 97.8 [degF] [facility] 09-24-2023 18:14-0400 Body weight 94.3 kg [facility] 09-24-2023 18:14-0400 Diastolic blood pressure 95 mm[Hg] [facility] 09-24-2023 18:14-0400 Systolic blood pressure 140 mm[Hg] [facility] 04-06-2023 16:01-0400 Diastolic blood pressure 79 mm[Hg] [facility] 04-06-2023 16:01-0400 Heart rate 74 /min [facility] 04-06-2023 16:01-0400 Respiratory rate 16 /min [facility] 04-06-2023 16:01-0400 SaO2% (BldA) [Mass fraction] 100 % [facility] 04-06-2023 16:01-0400 Systolic blood pressure 120 mm[Hg] [facility] 04-06-2023 13:52-0400 Body height 157.48 cm [facility] 04-06-2023 13:52-0400 Body mass index (BMI) [Ratio] 35.3 kg/m2 [facility] 04-06-2023 13:52-0400 Body temperature 97 [degF] [facility] 04-06-2023 13:52-0400 Body weight 87.63 kg [facility] 11-14-2022 16:42-0500 Heart rate 77 /min No Primary Care Physician [facility] Work Phone: 11-14-2022 16:42-0500 Respiratory rate 16 /min No Primary Care Physician [facility] Work Phone: 11-14-2022 16:42-0500 SaO2% (BldA) [Mass fraction] 97 % No Primary Care Physician [facility] Work Phone: 11-14-2022 15:25-0500 Body height 157.48 cm No Primary Care Physician [facility] Work Phone: 11-14-2022 15:25-0500 Body mass index (BMI) [Ratio] 36 kg/m2 No Primary Care Physician [facility] Work Phone: 11-14-2022 15:25-0500 Body temperature 97.3 [degF] No Primary Care Physician [facility] Work Phone: 11-14-2022 15:25-0500 Body weight 89.35 kg No Primary Care Physician [facility] Work Phone: 11-14-2022 15:25-0500 Diastolic blood pressure 63 mm[Hg] No Primary Care Physician [facility] Work Phone: 11-14-2022 15:25-0500 Systolic blood pressure 140 mm[Hg] No Primary Care Physician [facility] Work Phone: 08-15-2022 07:43-0400 Diastolic blood pressure 62 mm[Hg] [facility] Work Phone: 08-15-2022 07:43-0400 Heart rate 74 /min [facility] Work Phone: 08-15-2022 07:43-0400 Respiratory rate 14 /min [facility] Work Phone: 08-15-2022 07:43-0400 SaO2% (BldA) [Mass fraction] 98 % [facility] Work Phone: 08-15-2022 07:43-0400 Systolic blood pressure 110 mm[Hg] [facility] Work Phone: 08-15-2022 06:23-0400 Body height 157.48 cm [facility] Work Phone: 08-15-2022 06:23-0400 Body mass index (BMI) [Ratio] 35.6 kg/m2 [facility] Work Phone: 08-15-2022 06:23-0400 Body temperature 98.1 [degF] [facility] Work Phone: 08-15-2022 06:23-0400 Body weight 88.4 kg [facility] Work Phone: 06-29-2022 12:46-0400 Respiratory rate 18 /min [facility] Work Phone: 06-29-2022 10:38-0400 Body height 157.48 cm [facility] Work Phone: 06-29-2022 10:38-0400 Body mass index (BMI) [Ratio] 33.8 kg/m2 [facility] Work Phone: 06-29-2022 10:38-0400 Body temperature 98 [degF] [facility] Work Phone: 06-29-2022 10:38-0400 Body weight 83.91 kg [facility] Work Phone: 06-29-2022 10:38-0400 Diastolic blood pressure 97 mm[Hg] [facility] Work Phone: 06-29-2022 10:38-0400 Heart rate 91 /min [facility] Work Phone: 06-29-2022 10:38-0400 SaO2% (BldA) [Mass fraction] 100 % [facility] Work Phone: 06-29-2022 10:38-0400 Systolic blood pressure 129 mm[Hg] [facility] Work Phone: 06-02-2022 15:08-0400 Diastolic blood pressure 66 mm[Hg] [facility] Work Phone: 06-02-2022 15:08-0400 Heart rate 62 /min [facility] Work Phone: 06-02-2022 15:08-0400 Respiratory rate 15 /min [facility] Work Phone: 06-02-2022 15:08-0400 SaO2% (BldA) [Mass fraction] 99 % [facility] Work Phone: 06-02-2022 15:08-0400 Systolic blood pressure 152 mm[Hg] [facility] Work Phone: 06-02-2022 13:51-0400 Body height 157.48 cm [facility] Work Phone: 06-02-2022 13:51-0400 Body mass index (BMI) [Ratio] 33.8 kg/m2 [facility] Work Phone: 06-02-2022 13:51-0400 Body temperature 98 [degF] [facility] Work Phone: 06-02-2022 13:51-0400 Body weight 83.91 kg [facility] Work Phone: 04-28-2022 05:50-0400 Diastolic blood pressure 60 mm[Hg] [facility] Work Phone: 04-28-2022 05:50-0400 Heart rate 72 /min [facility] Work Phone: 04-28-2022 05:50-0400 Respiratory rate 20 /min [facility] Work Phone: 04-28-2022 05:50-0400 SaO2% (BldA) [Mass fraction] 99 % [facility] Work Phone: 04-28-2022 05:50-0400 Systolic blood pressure 111 mm[Hg] [facility] Work Phone: 04-28-2022 04:01-0400 Body height 157.48 cm [facility] Work Phone: 04-28-2022 04:01-0400 Body mass index (BMI) [Ratio] 35.8 kg/m2 [facility] Work Phone: 04-28-2022 04:01-0400 Body temperature 97.5 [degF] [facility] Work Phone: 04-28-2022 04:01-0400 Body weight 88.8 kg [facility] Work Phone: 02-16-2022 10:37-0400 Body mass index (BMI) [Ratio] 35.7 kg/m2 [facility] Work Phone: 02-16-2022 10:37-0400 Body temperature 96.9 [degF] [facility] Work Phone: 02-16-2022 10:37-0400 Body weight 88.6 kg [facility] Work Phone: 02-16-2022 10:37-0400 Diastolic blood pressure 80 mm[Hg] [facility] Work Phone: 02-16-2022 10:37-0400 Heart rate 104 /min [facility] Work Phone: 02-16-2022 10:37-0400 Respiratory rate 7 /min [facility] Work Phone: 02-16-2022 10:37-0400 SaO2% (BldA) [Mass fraction] 100 % [facility] Work Phone: 02-16-2022 10:37-0400 Systolic blood pressure 129 mm[Hg] [facility] Work Phone: 02-15-2022 05:50-0400 SaO2% (BldA) [Mass fraction] 100 % [facility] Work Phone: 02-15-2022 04:30-0400 Body temperature 98.9 [degF] [facility] Work Phone: 02-15-2022 04:30-0400 Diastolic blood pressure 58 mm[Hg] [facility] Work Phone: 02-15-2022 04:30-0400 Heart rate 86 /min [facility] Work Phone: 02-15-2022 04:30-0400 Respiratory rate 18 /min [facility] Work Phone: 02-15-2022 04:30-0400 Systolic blood pressure 113 mm[Hg] [facility] Work Phone: 02-15-2022 02:18-0400 Body mass index (BMI) [Ratio] 36.6 kg/m2 [facility] Work Phone: 02-15-2022 02:18-0400 Body weight 90.8 kg [facility] Work Phone: 01-27-2022 13:12-0500 Body mass index (BMI) [Ratio] 36.2 kg/m2 [facility] Work Phone: 01-27-2022 13:12-0500 Body temperature 98.1 [degF] [facility] Work Phone: 01-27-2022 13:12-0500 Body weight 89.81 kg [facility] Work Phone: 01-27-2022 13:12-0500 Diastolic blood pressure 90 mm[Hg] [facility] Work Phone: 01-27-2022 13:12-0500 Heart rate 106 /min [facility] Work Phone: 01-27-2022 13:12-0500 Respiratory rate 16 /min [facility] Work Phone: 01-27-2022 13:12-0500 SaO2% (BldA) [Mass fraction] 100 % [facility] Work Phone: 01-27-2022 13:12-0500 Systolic blood pressure 156 mm[Hg] [facility] Work Phone: 01-10-2022 08:50-0500 Diastolic blood pressure 69 mm[Hg] [facility] Work Phone: 01-10-2022 08:50-0500 Heart rate 82 /min [facility] Work Phone: 01-10-2022 08:50-0500 Respiratory rate 18 /min [facility] Work Phone: 01-10-2022 08:50-0500 Systolic blood pressure 129 mm[Hg] [facility] Work Phone: 01-10-2022 07:28-0500 Body mass index (BMI) [Ratio] 36.1 kg/m2 [facility] Work Phone: 01-10-2022 07:28-0500 Body temperature 97.4 [degF] [facility] Work Phone: 01-10-2022 07:28-0500 Body weight 89.6 kg [facility] Work Phone: 01-10-2022 07:28-0500 SaO2% (BldA) [Mass fraction] 100 % [facility] Work Phone: 01-03-2022 08:51-0500 Diastolic blood pressure 71 mm[Hg] [facility] Work Phone: 01-03-2022 08:51-0500 Heart rate 69 /min [facility] Work Phone: 01-03-2022 08:51-0500 Respiratory rate 16 /min [facility] Work Phone: 01-03-2022 08:51-0500 SaO2% (BldA) [Mass fraction] 98 % [facility] Work Phone: 01-03-2022 08:51-0500 Systolic blood pressure 122 mm[Hg] [facility] Work Phone: 01-03-2022 05:31-0500 Body mass index (BMI) [Ratio] 34.9 kg/m2 [facility] Work Phone: 01-03-2022 05:31-0500 Body temperature 98.7 [degF] [facility] Work Phone: 01-03-2022 05:31-0500 Body weight 89.6 kg [facility] Work Phone: Encounters Encounter Date Encounter Type Care Provider Facility Start: 04-30-2025 End: 04-30-2025 Emergency department patient visit Vivien REYES Work Phone: -Emergency Department Work Phone: Start: 04-03-2025 End: 04-05-2025 Refill Vivien Gustafson APRN.CARD GRADER Work Phone: [facility] [place] Comment on above: Refill Request Start: 02-09-2025 End: 02-09-2025 Telephone encounter Rhonda Rahman APRN.CARD GRADER Work Phone: [facility] [place] Start: 02-03-2025 End: 03-09-2025 Follow-up encounter Chris Veras APRN.CARD GRADER Work Phone: [facility] Start: 02-03-2025 End: 02-03-2025 ambulatory SELF Facility:[facility] Start: 02-03-2025 End: 02-03-2025 Patient encounter procedure Shahana Vasquez EMERGENCY WORKER.CARD GRADER Work Phone: [facility] Comment on above: Pain of upper abdome n (Primary Dx) Start: 02-02-2025 End: 02-02-2025 Emergency department patient visit Vivien Gustafson INTERNATIONAL LOGISTICS COORDINATOR-C Work Phone: -Emergency Department Work Phone: Start: 02-02-2025 End: 02-02-2025 Subsequent hospital visit by physician Xr Replaced By [facility] [place] Work Phone: Radiology Comment on above: Acute cough [R05.1] Start: 02-02-2025 End: 02-02-2025 [facility] Start: 02-02-2025 End: 02-02-2025 Patient encounter procedure Shahana Vasquez EMERGENCY WORKER.CARD GRADER Work Phone: [facility] Comment on above: Acute cough (Primary Dx); Right upper quadrant abdominal pain; Infected cyst of skin Start: 01-26-2025 End: 01-26-2025 Emergency department patient visit Vivien Gustafson INTERNATIONAL LOGISTICS COORDINATOR-C Work Phone: -Emergency Department Work Phone: Start: 01-04-2025 End: 01-05-2025 Refill Vivien Gustafson EMERGENCY WORKER.CARD GRADER Work Phone: [facility] Comment on above: Refill Request Start: 10-21-2024 End: 10-21-2024 ambulatory CURT SULLIVAN Facility:[facility] Start: 10-10-2024 End: 10-10-2024 Emergency department patient visit Dr. Magen Chávez DO -Emergency Department Work Phone: Start: 10-05-2024 End: 10-06-2024 Refill Vivien Gustafson EMERGENCY WORKER.CARD GRADER Work Phone: [facility] [place] Comment on above: Refill Request Start: 07-12-2024 End: 07-13-2024 Refill Vivien Gustafson EMERGENCY WORKER.CARD GRADER Work Phone: [facility] [place] Comment on above: Refill Request Start: 04-16-2024 Telephone encounter Nehemiah Lee gianluca EMERGENCY WORKER.CARD GRADER Work Phone: [facility] Comment on above: Results Start: 04-15-2024 End: 04-15-2024 ambulatory VIVIEN PODLOGAR Facility:[facility] Start: 04-15-2024 End: 04-15-2024 Patient encounter procedure Vivien Podlogar EMERGENCY WORKER.CARD GRADER Work Phone: [facility] Comment on above: Hypertension, essent ial (Primary Dx); Elevated bilirubin Start: 03-24-2024 Telephone encounter Vivien Podl ogar EMERGENCY WORKER.CARD GRADER Work Phone: [facility] Start: 03-21-2024 End: 03-21-2024 ambulatory VIVIEN PODLOGAR Facility:[facility] Start: 03-18-2024 End: 03-18-2024 ambulatory VIVIEN PODLOGAR Facility:[facility] Start: 03-18-2024 End: 03-18-2024 Patient encounter procedure Vivien Podlogar EMERGENCY WORKER.CARD GRADER Work Phone: [facility] Comment on above: Encounter for medica l examination to establish care (Primary Dx); Hypertension, essential; Screening for hyperlipidemia; Polyuria; Fatigue, unspecified type; Polydipsia Start: 03-18-2024 End: 03-18-2024 Patient encounter status Vivien Podlogar EMERGENCY WORKER.CARD GRADER Work Phone: [facility] Start: 03-03-2024 End: 03-03-2024 ambulatory SHAHANA VASQUEZ Facility:[facility] Start: 12-26-2023 End: 12-26-2023 Emergency department patient visit [facility]-Emergency Department Work Phone: Start: 09-24-2023 End: 09-24-2023 Emergency department patient visit [facility] Work Phone: Start: 04-06-2023 End: 04-06-2023 Emergency department patient visit [facility] Start: 11-14-2022 End: 11-14-2022 Emergency department patient visit No Primary Care Physician [facility]Emergency Department Start: 11-12-2022 Refill Ranjit rock MD Work Phone: [facility] Comment on above: Refill Request Start: 08-15-2022 End: 08-15-2022 [facility] Start: 08-15-2022 End: 08-15-2022 Non-patient / Non-visit No Primary Care Physician [facility] Start: 07-14-2022 Refill Guilherme JONES RN.YUNG, DIGNA Work Phone: [facility] Comment on above: Refill Request Start: 06-29-2022 End: 06-29-2022 [facility] Start: 06-02-2022 End: 06-02-2022 [facility] Start: 04-28-2022 End: 04-28-2022 [facility] Start: 04-11-2022 Chart abstracting Kev QUINONES Work Phone: Psychology Comment on above: Consult ([facility] P:t Ou trelian F/U) Start: 04-08-2022 Refill Guilherme JONES RN.YUNG, DIGNA Work Phone: [facility] Comment on above: Refill Request Start: 02-16-2022 End: 02-16-2022 [facility] Start: 02-15-2022 End: 02-15-2022 [facility] Start: 01-27-2022 End: 01-27-2022 [facility] Start: 01-10-2022 End: 01-10-2022 [facility] Start: 01-03-2022 End: 01-03-2022 [facility] Date Procedure Procedure Detail Performing Clinician Start: 04-30-2025 Computed tomography of abdomen and pelvis with intravenous contrast Vivien REYES Work Phone: Start: 04-30-2025 Estimated creatinine clearance Vivien Podlogar INTERNATIONAL LOGISTICS COORDINATOR-C Work Phone: Start: 02-02-2025 US scan of gallbladder Vivien Podlogar INTERNATIONAL LOGISTICS COORDINATOR-C Work Phone: Start: 02-02-2025 Estimated creatinine clearance Vivien Podlogar INTERNATIONAL LOGISTICS COORDINATOR-C Work Phone: Start: 02-02-2025 Radiologic exam ches t 2 views Shahana Vasquez EMERGENCY WORKER.CARD GRADER Work Phone: Start: 01-26-2025 Estimated creatinine clearance Vivien Podlogar INTERNATIONAL LOGISTICS COORDINATOR-C Work Phone: Start: 01-26-2025 Urnls dip stick/tabl et reagent auto microscopy Vivien Podlogar INTERNATIONAL LOGISTICS COORDINATOR-C Work Phone: Start: 01-26-2025 Computed tomography of abdomen and pelvis with intravenous contrast Vivien Podlogar INTERNATIONAL LOGISTICS COORDINATOR-C Work Phone: Start: 10-10-2024 Computed tomography of abdomen and pelvis with intravenous contrast Vivien Podlogar INTERNATIONAL LOGISTICS COORDINATOR-C Work Phone: Start: 03-21-2024 Lipid 1996 panel - S nik or Plasma Vivien Podlogar EMERGENCY WORKER.CARD GRADER Work Phone: Start: 03-18-2024 Urnls dip stick/tabl et rgnt auto w/o microscopy Vivien Podlogar EMERGENCY WORKER.CARD GRADER Work Phone: Start: 03-18-2024 Adult depression scr eening assessment Vivien Podlogar EMERGENCY WORKER.CARD GRADER Work Phone: Start: 12-26-2023 Plain chest X-ray [...] panel - S nik or Plasma Vivien Gustafson EMERGENCY WORKER.CARD GRADER Work Phone: SARS-CoV-2 & FLU Ant igen (Rapid) Plan of Treatment Date Care Activity Detail Author Start: 03-21-2029 Lipid panel Lipid Screening [facility] Start: 02-03-2026 BP Controlled (<130/80) BP Controlle d (<130/80) [facility] Start: 12-13-2025 Lipid panel Lipid Screening [facility] Start: 12-13-2025 LIPID SCREEN LIPID SCREEN [facility] Start: 07-26-2025 Influenza vaccination Influenz a Vaccine (Season Ended) [facility] Start: 04-30-2025 [facility] Start: 04-15-2025 Annual PCP Team Physician General Practice brad Disease Visit Annual PCP Team Chronic Disease Visit [facility] Start: 04-15-2025 BP Controlled (<130/80) BP Controlle d (<130/80) [facility] Start: 03-18-2025 Annual PCP Team Physician General Practice brad Disease Visit Annual PCP Team Chronic Disease Visit [facility] Start: 03-18-2025 Anxiety Screening Anxiety Screening [facility] Start: 03-18-2025 Depression Screening Depression Scre ening [facility] Start: 03-18-2025 HIV screening HIV Screening [facility] Comment on above: Postponed from 07/04 (Declined at this time) Start: 02-11-2025 End: 02-11-2025 Patient encounter procedure 02/11/2025 9:40 AM EDT Office Visit Family Benjamin Duncan [address] [facility] [place] [id number] Rhonda Rahman APRN.CARD GRADER [address] [facility] [place] [id number] ER follow up 02/02/25 Family Benjamin Duncan Comment on above: ER follow up 5 Start: 02-04-2025 End: 02-04-2025 Patient encounter procedure 02/04/2025 10:40 AM EDT Office Visit [facility] Duncan [address] [place] [address] Rhonda Rahman APRN.CARD GRADER [address] [place] [address] ER follow up 02/02/25 [facility] Duncan Comment on above: ER follow up 5 Start: 02-02-2025 [facility] Start: 02-02-2025 End: 05-04-2025 Bacteria identified in Wound by Culture BACTERIAL CULTURE AND GRAM STAIN, ABSCESS AND WOUND (AEROBIC CULTURE) Microbiology Routine Infected cyst of skin Expected: 02/02/2025, Expires: 05/04/2025 [facility] Comment on above: Expected: 02/02/2025 , Expires: 05/04/2025 Start: 01-26-2025 [facility] Start: 10-16-2024 End: 10-16-2024 Patient encounter procedure 10/16/2024 9:20 AM EST Office Visit [facility] Benjamin Duncan [address] [place] [address] Vivien Gustafson APRN.CARD GRADER [address] [place] [address] [facility] 6 month follow up Start: 10-10-2024 [facility] Start: 07-26-2024 Covid-19 Vaccine ( season) Covid-19 Vaccine ( season) [facility] Start: 07-26-2024 Influenza vaccination [facility] Start: 04-23-2024 End: 07-23-2024 Comprehensive metabolic 2000 panel - Serum or Plasma COMPREHENSIVE METABOLIC PANEL Lab Routine Elevated bilirubin Expected: 04/23/2024, Expires: 07/23/2024 [facility] Work Phone: Comment on above: Expected: 04/23/2024 , Expires: 07/23/2024 Start: 04-15-2024 End: 04-15-2024 Patient encounter procedure 04/15/2024 9:20 AM EDT Office Visit Family [facility] [place] [address] [place] [address] PodlogarVivien APRN.CARD GRADER [address] [place] [address] BP check [facility] [place] Comment on above: BP check Start: 03-18-2024 End: 06-17-2024 CBC W Auto Differential panel - Blood COMPLETE BLOOD COUNT AND DIFFERENTIAL Lab Routine Fatigue, unspecified type Expected: 03/18/2024, Expires: 06/17/2024 [facility] Comment on above: Expected: 03/18/2024 , Expires: 06/17/2024 Start: 03-18-2024 End: 06-17-2024 Comprehensive metabolic 2000 panel - Serum or Plasma COMPREHENSIVE METABOLIC PANEL Lab Routine Hypertension, essential Expected: 03/18/2024, Expires: 06/17/2024 [facility] Work Phone: Comment on above: Expected: 03/18/2024 , Expires: 06/17/2024 Start: 03-18-2024 End: 06-17-2024 Hemoglobin A1c in Blood HEMOGLOBIN A1C Lab Routine Polyuria Polydipsia Expected: 03/18/2024, Expires: 06/17/2024 [facility] Comment on above: Expected: 03/18/2024 , Expires: 06/17/2024 Start: 03-18-2024 End: 06-17-2024 Lipid 1996 panel - Serum or Plasma LIPID PANEL BASIC Lab Routine Screening for hyperlipidemia Expected: 03/18/2024, Expires: 06/17/2024 [facility] Comment on above: Expected: 03/18/2024 , Expires: 06/17/2024 Start: 03-18-2024 End: 06-17-2024 Thyrotropin [Units/volume] in Serum or Plasma THYROID STIMULATING HORMONE Lab Routine Fatigue, unspecified type Expected: 03/18/2024, Expires: 06/17/2024 [facility] Comment on above: Expected: 03/18/2024 , Expires: 06/17/2024 Start: 12-26-2023 [facility] Start: 09-24-2023 [facility] Start: 07-26-2023 Covid-19 Vaccine ( season) Covid-19 Vaccine ( season) [facility] Start: 02-06-2023 ANNUAL PCP TEAM SENIOR BACKUP ADMINISTRATOR BRAD DISEASE VISIT ANNUAL PCP TEAM CHRONIC DISEASE VISIT [facility] Start: 02-06-2023 BP CONTROLLED (<130/80) BP CONTROLLE D (<130/80) [facility] Start: 02-06-2023 COVID-19 VACCINE (#1) COVID-19 VACCI NE (#1) [facility] Comment on above: Postponed from 07/04 (Declined at this time) Postponed from 01/04 (Declined at this time) Start: 02-05-2023 Adult depression screening assessment DEPRESSION SCREENING [facility] Start: 08-15-2022 Blood chemistry [facility] Work Phone: Start: 08-15-2022 End: 08-15-2022 [facility] Work Phone: Start: 07-26-2022 Influenza vaccination [facility] Start: 02-15-2022 [facility] Work Phone: Start: 11-25-2021 DEPRESSION ASSESSMENT DEPRESSION ASS ESSMENT [facility] Start: 01-25-2019 Urine microalbumin profile [facility] Start: 1999 Hepatitis B Vaccine (1 of 3 - 19+ 3-dose series) Hepatitis B Vaccine (1 of 3 - 19+ 3-dose series) [facility] Start: 1998 BP Controlled (<130/80) BP Controlle d (<130/80) [facility] Start: 1998 HIV SCREENING HIV SCREENING [facility] Start: 1998 HIV screening HIV Screening [facility] Start: 1980 HEPATITIS B (1 of 3 - 3-dose series) HEPATITIS B (1 of 3 - 3-dose series) [facility] Bilirubin measuremen t, urine [facility] Hemoglobin [Presence ] in Urine [facility] Measurement of keton es in urine using dipstick [facility] Microscopic urinalysis [facility] Patient Education [facility] Work Phone: Patient referral [facility] Work Phone: pH of Urine [facility] Specific gravity of Urine [facility] Urinalysis, blood, qualitative [facility] Urine dipstick for glucose [facility] Urine dipstick for leukocyte esterase [facility] Urine dipstick for nitrite [facility] Urine dipstick for protein [facility] Urine examination [facility] Urine microscopy: epithelial cells [facility] Urine Microscopy: wh ite cells [facility] Urobilinogen [Presen ce] in Urine [facility] End: 03-04-2026 US Abdomen RUQ US ABD RIGHT UPPER QUADRANT Radiology STAT Right upper quadrant abdominal pain 1 Occurrences starting 02/02/2025 until 03/04/2026 [facility] Work Phone: Comment on above: 1 Occurrences starti ng 02/02/2025 until 03/04/2026 Immunizations Immunization Date Immunization Notes Care Provider Jinny mendez 01-25-2009 tetanus toxoid, redu александр diphtheria toxoid, and acellular pertussis vaccine, adsorbed Kev Tasneem [employer] Work Phone: [facility] Payers Date Payer Category Payer Self-pay [id number] Medicaid MEDICAID [id number] Unknown JENNIFER CMS [id number] Unknown [id number] Unknown [id number] Unknown [id number] Unknown [id number] Social History Date Type Detail Facility Start: 09-28-2020 End: 04-30-2025 Tobacco smoking status NHIS Ex-smoker [facility] Work Phone: Start: 12-26-2009 End: 12-26-2019 History of tobacco use Current smoker [facility] Work Phone: Start: 12-26-2009 End: 12-26-2019 History of tobacco use Cigarette Smoker [facility] Work Phone: Start: 02-06-2022 End: 02-03-2025 Alcohol intake Current non-drinker of alcohol (finding) [facility] Start: 12-05-2020 End: 02-05-2022 History SDOH Alcohol Frequency 1 [facility] Start: 02-05-2022 History SDOH Alcohol Std Drinks 98 [facility] Start: 02-05-2022 History SDOH Social Connections Membership 2 [facility] Start: 02-05-2022 History SDOH Social Connections Living 7 [facility] Start: 02-05-2022 History SDOH Stress 5 [facility] Start: 02-05-2022 History SDOH Financial 3 [facility] Start: 10-25-2020 Education 12 [facility] Start: 1980 Sex Assigned At Male [facility] Start: 04-28-2022 End: 12-26-2023 Tobacco smoking status HIIS Unknown if ever smoked [facility] Start: 01-07-2021 None [facility] Start: 01-07-2021 Alone [facility] Start: 04-01-2021 Cigarettes [facility] Start: 09-28-2020 End: 03-18-2024 Cigarettes smoked current (pack per day) - Reported 3 [facility] Start: 09-28-2020 End: 02-02-2025 Tobacco use and exposure Smokeless tobacco non-user [facility] Start: 02-05-2022 End: 03-18-2024 Social connection and isolation panel [facility] Do you belong to any clubs or organizations such as restorationist groups, unions, fraternal or athletic groups, or school groups? No [facility] How often do you att end meetings of the clubs or organizations you belong to? Patient declined [facility] Are you now , , , , never or living with a partner? Never [facility] How often to you hav e a drink containing alcohol? Never [facility] How hard is it for y ou to pay for the very basics like food, housing, medical care, and heating Somewhat hard [facility] Do you feel stress - tense, restless, nervous, or anxious, or unable to sleep at night because your mind is troubled all the time - these days [OSQ] Very much [facility] (I/We) worried césar felipe (my/our) food would run out before (I/we) got money to buy more. Never true [facility] Start: 03-18-2024 Tobacco Comment june 2005. [facility] Start: 11-14-2020 Gender identity Identifies as male gender (finding) [facility] Start: 11-14-2020 Sexual orientation Heterosexual (finding) [facility] How hard is it for y ou to pay for the very basics like food, housing, medical care, and heating Not very hard [facility] Do you feel stress - tense, restless, nervous, or anxious, or unable to sleep at night because your mind is troubled all the time - these days [OSQ] Not at all [facility] Start: 02-02-2025 Sex Male (finding) [facility] Mental Status Date Assessment Result Facility 11-14-2022 Cognitive function Level Of Cons ciousness Awake;Alert;Appropriate [facility] Work Phone: 08-15-2022 Cognitive function Voice/Name [facility] Work Phone: 06-29-2022 Cognitive function Level Of Cons ciousness Awake;Alert;Appropriate;Follow s Commands [facility] Work Phone: 06-02-2022 Cognitive function Level Of Cons ciousness Awake;Alert;Appropriate;Follow s Commands [facility] Work Phone: 04-28-2022 Cognitive function Voice/Name [facility] Work Phone: 01-27-2022 Cognitive function Level Of Cons ciousness Awake;Alert;Appropriate;Follow s Commands [facility] Work Phone: 01-03-2022 Cognitive function Level Of Cons ciousness Awake;Alert;Appropriate [facility] Work Phone: Clinical Notes 04-11-2022 to 04-30-2025 Note Date & Type Note Facility 04-30-2025 Discharge summary [facility] 04-30-2025 Radiology Diagnostic study note [facility] Imaging Services [address] [place], [place] [address] Abdomen/Pelvis W IV Cont ONLY MR#: [id number] Acct: [id number] Name: ARTIE CABRERA Rep #: [id number] : 1980 M 44 From: Ivette Garcia MD PCP: Vivien Gustafson NP-C Status: REG E R Study:Abdomen/Pelvis W IV Cont ONLY Date of E xam: 04/30/25 Exam# [id number] Ordering Dr: Vinny Zavala DO EXAM: CT Abdomen and Pelvis With Intravenous Contrast CLINICAL INDICATION: LUQ ABDOMINAL PAIN AFTER SWALLOWING TECHNIQUE: Axial computed tomography images of the abdomen and pelvis with intravenous contrast. This CT exam was performed using one or more of the following dose reduction techniques: automated exposure control, adjustment of the mA and/or kV according to patient size, and/or use of iterative reconstruction technique. COMPARISON: CT Abdomen Pelvis dated 01/26/2025 FINDINGS: LUNG BASES: Unremarkable. No mass. No consolidation. ABDOMEN: LIVER: Fatty infiltration of the liver. GALLBLADDER AND BILE DUCTS: Unremarkable. No calcified stones. No ductal dilation. PANCREAS: Unremarkable. No mass. No ductal dilation. SPLEEN: Unremarkable. No splenomegaly. ADRENALS: Unremarkable. No mass. KIDNEYS AND URETERS: Unremarkable. No solid mass. No hydronephrosis. STOMACH AND BOWEL: Unremarkable. No obstruction. No mucosal thickening. PELVIS: APPENDIX: No findings to suggest acute appendicitis. BLADDER: Unremarkable. No mass. REPRODUCTIVE: Unremarkable as visualized. 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 No free air. No significant fluid collection. BONES/JOINTS: No acute fracture. No dislocation. SOFT TISSUES: Unremarkable. VASCULATURE: Unremarkable. No abdominal aortic aneurysm. LYMPH NODES: Unremarkable. No enlarged lymph nodes. 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 Reading Location: [facility] CC: INTERNATIONAL LOGISTICS COORDINATORWinstonC Vivien Gustafson; Dr. Carlos Zavala, DO ~ Entry Level Manager: Signed [facility] 04-30-2025 Discharge summary Note Date/Time April 30, 2025 10:47pm [facility] Medical Records Department [address] [place] [address] Emergency Department Summary 04/30/25 MR#: [id number] Acct: [id number] Name: ARTIE CABRERA Rep #:[id number] : 1980 44 From: Carlos Louis PCP: Vivien Gustafson, AMY Status:REG E R Location: ED HPI History of Present Illness Chief Complaint: GI Bleed PFSH PFSH Medical History Irregular heart beat HTN (hypertension) Home Medications ?Medication ?Instructions ?Recorded ?Last Taken ?Type lisinopril 10 mg tablet 10 mg PO DAILY blood pressur e #30 11/14/22 Unknown Rx tabs Allergy/AdvReac Type Severity Reaction Status Date / Time morphine AdvReac Upset Verified 04/30/25 19:54 Stomach naproxen AdvReac Upset Verified 04/30/25 19:54 Stomach Surgical History History of dental surgery Social History Smoking Status: Former smoker substance use type: does not use EXAM Physical Exam Const Vital Signs: 04/30/25 19:54 04/30/25 22:00 Temperature 97.6 F L Temperature Source Temporal Pulse Rate 97 82 Respiratory Rate 16 16 Blood Pressure 135/91 H 144/68 H Blood Pressure Mean 105 93 Pulse Ox 99 100 Oxygen Delivery Method Room Air Room Air MDM MDM MDM Narrative Medical decision making narrative: HISTORY OF PRESENT ILLNESS: Chief complaint: Vomiting blood 44-year-old male history of hypertension states he swallowed a piece of plastic earlier now notes he is vomiting blood and is concerned. The patient further states he he was eating a chicken nugget at approximately 10:30 AM. Notes he iseating with a plastic fork. Notes he been to the chicken nugget and noticed that a piece of plastic fork was missing. He notes a plastic fork initiated forprongs and when he finished eating his chicken nugget he noticed only had 3 prongs. States he looked everywhere but cannot find the piece of plastic. Unsure if he swallowed it but is concerned because he has not been feeling "right" all day. States he has left upper quadrant abdominal pain. REVIEW OF SYSTEMS: Pertinent positives: Hematemesis, Pertinent negatives: Melena, syncope, chest pain PHYSICAL EXAM: Nursing triage notes reviewed, Vital signs reviewed Constitutional: [facility] HENT: MMM Eyes: Pupils equal round and reactive to light, Extraocular muscles intact Neck: No stridor, no JVD, full neck ROM Lungs: Clear to auscultation, No wheezing or rales. No increased work of breathing, no conversational dyspnea, no accessory muscle use, no nasal flaring. No respiratory distress noted Heart: Regular rate and rhythm, No murmurs, No rubs and No gallops, 2+ distal pulses (radial, femoral, posterior tibial) in all extremities Abdomen: Soft, there is no tenderness, rigidity, rebound or guarding, no obviousperitoneal signs, no palpable pulsatile abdominal masses, no auscultated abdominal bruit : No CVAT Extremities: No edema Neuro: No new focal neurological deficits, cranial nerves II through XII intact,5/5 strength in all present extremities. Intact sensation to light touch in all present extremities, 2+ reflexes bilateral patella tendons. Skin: No rash or lesions noted MEDICAL DECISION MAKING: Chief Complaint: please see HPI External records reviewed: Reviewed prior imaging studies Factors affecting care hypertension Social determinants of health: none History obtained from others: none Consults: none [facility] Narrative: Patient was initially hemodynamically stable, afebrile and nontoxic-appearing. Exam without significant peritoneal signs I considered the following differential diagnosis: Bowel perforation, acute pancreatitis, severe anemia, electrolyte disturbance, hepatobiliary pathology ALL IMAGES (IF OBTAINED) HAVE BEEN PERSONALLY REVIEWED AND INTERPRETED BY MYSELF. CT scan abdomen pelvis with no evidence of obvious perforation CBC with no leukocytosis, mild anemia, no thrombocytopenia CMP without evidence of acute kidney injury, significant electrolyte abnormality, anion gap to suggest end organ hypo-perfusion, no evidence of metabolic acidosis with a normal bicarbonate, no evidence of hepatobiliary obstructive pathology. Lipase is wnl indicating no pancreatic inflammation. The synthesis of the patient's history, physical exam, labs images suggest no acute life or limb-threatening etiology. No occasion for surgical consult acuteoperating room admission. Unknown etiology. No obvious radiopaque foreign bodynoted. Patient was given strict return precaution follow-up instructions with gastroenterology The patient and/or family, caregivers express understanding. The patient and/orfamily, caregivers agrees with the plan. Shared decision making: I will have a discussion with the patient and or visitors regarding risk/benefits of further testing or admission. They will be made aware of of the risk/benefits inherent in this decision they will be given the opportunity to voice understanding. Total critical care time today provided was at least 0 minutes. This excludes separately billable procedures. Critical care time (if documented) is secondary to the patient having high probability of clinically significant/life threatening deterioration in the patient's condition which required my urgent intervention. Impression: 1. Abdominal pain 2. Possible radiolucent foreign Dispo: Discharge home This note was generated with [employer] dictation software. It may contain incorrectwords, spelling, and punctuation that were not noted in review of the chart prior to signing. Lab Data Labs: Laboratory Results - last 24 hr 04/30/25 20:34 WBC 10.3 RBC 4.58 L Hgb 14.5 Hct 41.4 MCV 90.4 MCH 31.7 MCHC 35.0 RDW Std Deviation 40.6 RDW Coeff of Lior 12.4 Plt Count 347 MPV 8.7 Immature Gran % (Auto) 0.400 Neut % (Auto) 60.9 Lymph % (Auto) 26.7 Sabine % (Auto) 10.3 H Eos % (Auto) 1.1 Baso % (Auto) 0.6 Absolute Neuts (auto) 6.3 Absolute Lymphs (auto) 2.76 Nucleated RBC % 0 Sodium 137 Potassium 3.8 Chloride 103 Carbon Dioxide 22.3 Anion Gap 12 BUN 14 Creatinine 1.03 Estim Creat Clear Calc 88.98 Est GFR (MDRD) Non-Af 92 BUN/Creatinine Ratio 13.4 Glucose 103 H Calcium 9.4 Total Bilirubin 0.67 AST 26 ALT 34 Alkaline Phosphatase 92 Total Protein 7.4 Albumin 4.4 Globulin 3.0 Albumin/Globulin Ratio 1.5 Lipase 33 Radiography Diagnostic Testing: Clinical Impression(s) from Imaging Studies Abdomen/Pelvis CT 04/30/25 20:40 IMPRESSION: Previously described haziness in the mesentery is unchanged, 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 Reading Location: [facility] Discharge Plan Triage Chief Complaint: GI Bleed ED Provider: Carlos Zavala Dx/Rx/DC Orders Prescriptions: No Action lisinopril 10 mg tablet 10 mg PO DAILY Qty: 30 0RF Primary Care Provider: Vivien Gustafson NP Referrals: Vivien Gustafson NP, INTERNATIONAL LOGISTICS COORDINATOR-C [Primary Care Provider] - Print Language: Citizen Of [place] What to do if you have Problems For any increased pain, shortness of breath, bleeding, nausea or vomiting, chestpain, or any unexpected problems, contact your Primary Care Provider. Call [facility] ([phone]) or report to the closest Emergency Room. Call 911 if necessary. 04/30/252246 <Electronically signed by Carlos Zavala DO> Cosigner Signature (if applicable): CC: AMY Lightlogalvaro ~ Signed [facility] Work Phone: [phone] 300-619405-12-2025 Telephone encounter Note* Telephone Encounter - Melany Marquez MA - 04/05/2025 2:25 PM EDT Mychart message sent notifying pt he was due for physical and to call office to schedule. Melany Marquez MA [facility]05-12-2025 Miscellaneous Notes* Telephone Encounter - Melany Marquez MA - 04/05/2025 2:25 PM EDT Mychart message sent notifying pt he was due for physical and to call office to schedule. Melany Marquez MA * Telephone Encounter - Vivien Gustafson APRN.CNP - 04/05/2025 1:03 PM EDT Patient is due for annual appointment- please assist in scheduling. Vivien Gustafson APRN.CNP * Telephone Encounter - Melany Marquez MA - 04/05/2025 1:00 PM EDT Prescription Refill Information The patient has been [...] daily. For blood pressure PT NOTIFIED VIA [employer]HART HE IS DUE FOR YEARLY APPT. Melany Marquez MA April 05, 2025 1:00 PM [facility] Telephone encounter Note * Telephone Encounter - Vivien Gustafson APRN.CNP - 04/05/2025 1:03 PM EDT Patient is due for annual appointment- please assist in scheduling. Vivien Gustafson APRN.CNP [facility]05-12-2025 Telephone encounter Note* Telephone Encounter - Melany Marquez MA - 04/05/2025 1:00 PM EDT Prescription Refill Information The patient has been [...] daily. For blood pressure PT NOTIFIED VIA [employer] HE IS DUE FOR YEARLY APPT. Melany Marquez MA April 05, 2025 1:00 PM [facility]03-18-2025 Telephone encounter Note* Telephone Encounter - Rhonda Rahman APRN.CARD GRADER - 02/09/2025 9:03 AM EDT Patient was seen at [facility] on February 02, 2025 for abdominal pain. Pain was intermittent, gradual onset, described as cramping in the right upper quadrant. Negative for nausea vomiting. Negative for diarrhea, melena, or hematochezia. Negative for dysuria, frequency,hematuria or urgency. Patient is a 44-year-old male with a history of hypertension. No prior abdominal surgeries and has a history of right-sided abdominal pain without specific diagnosis. This has been worked up in the past. HIDA scan the [facility] showed sludge but did not need surgery at the time. He is havingrecurrent pain. Denies nausea vomiting. Having yellowish stools. [...] Tanna lithiasis. Patient ate 3 hours ago [facility] Work Phone: 1(599) 390-159803-18-2025 Miscellaneous Notes* Telephone Encounter - Rhonda Rahman APRN.CNP - 02/09/2025 9:03 AM EDT Patient was seen at [facility] on February 02, 2025 for abdominal pain. Pain was intermittent, gradual onset, described as cramping in the right upper quadrant. Negative for nausea vomiting. Negative for diarrhea, melena, or hematochezia. Negative for dysuria, frequency,hematuria or urgency. Patient is a 44-year-old male with a history of hypertension. No prior abdominal surgeries and has a history of right-sided abdominal pain without specific diagnosis. This has been worked up in the past. HIDA scan the [facility] showed sludge but did not need surgery at the time. He is havingrecurrent pain. Denies nausea vomiting. Having yellowish stools. [...] ate 3 hours ago documented in [facility] encounterCl[facility]03[facility]25 NoteHNO ID: [id number] Author: SHAHANA VASQUEZ APRN.CNP Service: ? Author Type: Nurse Practitioner Type: Progress Notes Filed: 02/03/2025 13:49 Note Text: This note was created using myBarristerriter. Subjective Artie Cabrera is a 44 year [...] history is provided by the patient. 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 Abdominal Pain This is a [...] signs of injury. Norm (more content not included)...[facility]03-12-2025 History of Present illness Narrative* Shahana Vasquez APRN.CARD GRADER - 02/03/2025 1:38 PM EDT This note was created using NoteWriter. Subjective [...] history is provided by the patient. 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 Abdominal Pain This is a [...] GERD, ulcerative colitis, Crohn's disease or irritable bowelsyndrome. PAST MEDICAL HISTORY Diagnosis Date Atypical chest [...] He is obese. He is not ill-appearing, toxic- appearing or diaphoretic. HENT: Head: Normocephalic and atraumatic. [...] outpatient US, but ultimately ended up at [facility] ED yesterday "US normal" per patient but presents with continued symptoms. Discussed limitations of express care, he would be better suited f/u with PCP since he has been seen twice for same Kind of figured you would say that Appt made with PCP tomorrow Shahana Vasquez APRN.YUNG documented in this encounterCl[facility]03[facility] Radiology Diagnostic study note [facility] Imaging Services [address], [place] [id number] Gallbladder MR#: [id number] Acct: [id number] Name: ARTIE CABRERA Rep #: [id number] : [id number] M 44 From: Jevon Lobato MD PCP: Vivien Gustafson CHARANJIT-C Status: REG E R Study:Gallbladder Date of Exam: 02/02/25 Exam# [id number] Ordering Dr: Reji Ortiz MD PROCEDURE: Ultrasound [...] patient ate 3 hours ago. Reading Location: [place] [address] CC: INTERNATIONAL LOGISTICS COORDINATOR-C Vivien Gustafson; Dr. Antonio Ortiz MD ~ Entry Level Manager: Signed [facility]03-11-2025 Instructions* Patient Instructions* Shahana Vasquez APRN.CNP - 02/02/2025 9:03 AM EDT Please schedule your Ultrasound The chest xray was normal Please take antibiotic and follow up with dermatology for your cyst. documented in this encounterCl[facility]03-[facility]25 History of Present illness Narrative* Raghu Black RT(R) - 02/02/2025 8:50 AM EDT Radiology Service Progress Note PATIENT NAME: Artie Cabrera DATE OF SERVICE: February 02, 2025 TIME: 8:48 AM PATIENT IDENTITY VERIFICATION COMPLETED USING TWO (2) IDENTIFIERS: Name and Date of confirmedby patient verbally. FALL SCREENING: Has the patient had 2 falls in the last year or 1 fall with injury or currently using an Ambulatory Assistive Device (Walker, Cane, Wheelchair, Crutches, etc.)? No PATIENT GENDER DATA: Assigned male at PATIENT RELEVANT IMPLANT DATA REVIEWED: Not Applicable PATIENT PRESENTS WITH AN IMPLANTABLE OR ATTACHED PROPERTY UNDERWRITER: No RADIOLOGY DEPARTMENT: General X-ray: Exam(s) Completed: Chest X-Ray PERIPHERAL IV DATA: Not applicable SIGNED BY: RT Eitan(Wendy) February 02, 2025 8:48 AM documented in this encounterClinton [facility]03-11-2025 NoteHNO ID: [id number] Author: RAGHU BLACK RT(R) Service: Radiology Author [...] PATIENT PRESENTS WITH AN IMPLANTABLE OR ATTACHED PROPERTY UNDERWRITER: No RADIOLOGY DEPARTMENT: General X-ray: Exam(s) Completed: Chest X-Ray PERIPHERAL IV DATA: Not applicable SIGNED BY: RT Eitan(Wendy) February 02, 2025 8:48 [facility]03-11-2025 NoteHNO ID: [id number] Author: SHAHANA VASQUEZ APRN.CARD GRADER Service: ? Author Type: Nurse Practitioner Type: Progress Notes Filed: 02/02/2025 09:54 Note Text: This note was created using myBarristerriter. Subjective Artie Cabrera is a 44 year old male. 44 year old male with PMH HTN presents for multiple complaints 1. Cyst Had it my whole life Endorses that it has recently " a month" Oozing Has been using band aids 2. Cough " A while" x one month +productive at times Non productive at others +chest wall pain with coughing Right sided "think I am pulling a muscle" Cough medicine Denies CP Denies hemoptysis Denies accompanying eye, nose or throat 3. Right upper quadrant pain Intermittent X 1 month Think my gallbladder is on the barton Denies fever or chills +nausea at times Denies emesis Denies pain presently Denies seeking medical treatment Denies tobacco usage The history is provided by the patient. 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 Cough This is a new [...] nursing note reviewed. Constit (more content not included)...[facility]03-11-2025 History of Present illness Narrative* Shahana Vasquez APRN.CARD GRADER - 02/02/2025 8:36 AM EDT This note was created using NoteWriter. Subjective Artie Cabrera is a 44 year old male. 44 year old male with PMH HTN presents for multiple complaints 1. Cyst Had it my whole life Endorses that it has recently " a month" Oozing Has been using band aids 2. Cough " A while" x one month +productive at times Non productive at others +chest wall pain with coughing Right sided "think I am pulling a muscle" Cough medicine Denies CP Denies hemoptysis Denies accompanying eye, nose or throat 3. Right upper quadrant pain Intermittent X 1 month Think my gallbladder is on the barton Denies fever or chills +nausea at times Denies emesis Denies pain presently Denies seeking medical treatment Denies tobacco usage The history is provided by the patient. 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 Cough This is a new problem. The current episode started more than 1 week ago. The problem occurs constantly. The problem has not changed since onset.Cough characteristics: productive/non productive. Therehas been no fever. Pertinent negatives include no chest pain, no chills, no sweats, no weight loss,no ear congestion, no ear pain, no headaches, [...] ride - Increase fiber in diet - [place] low residue diet - Follow up in [...] (AEROBIC CULTURE)-pending Referral to dermatology Shahana Vasquez APRN.CARD GRADER documented in this encounterCl[facility]02-[facility] Telephone encounter Note * Telephone Encounter - Tash Desai OCCA - 01/05/2025 8:22 AM EST TC to patient who verbalized understanding of below. Patient declines to schedule at this time and states he will call back in as he needs to speak with financial clearance. JACQUE Elizondo [facility]02-11-2025 Miscellaneous Notes* Telephone Encounter - Tash Desai OCCA - 01/05/2025 8:22 AM EST TC to patient who verbalized understanding of below. Patient declines to schedule at this time and states he will call back in as he needs to speak with financial clearance. JACQUE Elizondo * Telephone Encounter - Vivien Gustafson APRN.CNP - 01/05/2025 7:33 AM EST Patient is due for follow-up. Please assist in scheduling. Vivien Gustafson APRN.CNP * Telephone Encounter - Rhonda De LPN - 01/05/2025 7:08 AM EST Prescription Refill Information The patient has been [...] 05, 2025 7:08 AM documented in this encounterCl[facility]02-[facility]25 Telephone encounter Note * Telephone Encounter - Vivien Gustafson APRN.CNP - 01/05/2025 7:33 AM EST Patient is due for follow-up. Please assist in scheduling. Vivien Gustafson APRN.CNP [facility]02-11-2025 Telephone encounter Note* Telephone Encounter - Rhonda De LPN - 01/05/2025 7:08 AM EST Prescription Refill Information The patient has been [...] De LPN January 05, 2025 7:08 AM [facility]11-12-2024 Telephone encounter Note* Telephone Encounter - Cesia Allen LPN - 10/06/2024 8:24 AM EST The patient has been identified by name [...] Allen LPN October 06, 2024 8:24 AM [facility]11-12-2024 Miscellaneous Notes* Telephone Encounter - Cesia Allen LPN - 10/06/2024 8:24 AM EST The patient has been identified by name [...] 06, 2024 8:24 AM documented in this encounterCl[facility]08-[facility]24 Telephone encounter Note * Telephone Encounter - Immanuel Pappas LPN - 07/13/2024 11:58 AM EDT Prescription Refill Information The patient has been [...] Pappas LPN July 13, 2024 11:58 AM [facility]08-19-2024 Miscellaneous Notes* Telephone Encounter - Immanuel Pappas LPN - 07/13/2024 11:58 AM EDT Prescription Refill Information The patient has been [...] 13, 2024 11:58 AM documented in this encounterCl[facility]05-23-2024 Telephone encounter Note * Telephone Encounter - Kash Waterman MA - 04/16/2024 2:31 PM EDT Pt active on Zentact, message sent Kash Waterman MA [facility]05-23-2024 Miscellaneous Notes* Telephone Encounter - Kash Waterman MA - 04/16/2024 2:31 PM EDT Pt active on [employer]ent[employer], message sent Kash Waterman MA * Telephone Encounter - Nehemiah Dang APRN.CNP - 04/16/2024 2:23 PM EDT Please let patient know their labs are normal. documented in this encounterCl[facility] Hospital05-23-2024 Telephone encounter Note * Telephone Encounter - Nehemiah Dang APRN.CNP - 04/16/2024 2:23 PM EDT Please let patient know their labs are normal. [facility] Work Phone: 1(743) 850-183305-22-2024 History of Present illness Narrative* Vivien Gustafson APRN.CNP - 04/15/2024 9:20 AM EDT 04/15/2024 Patient presents with: Blood Pressure Check SUBJECTIVE: This is a 43 year old that is here today for Above Complaints. Bp elevated at last office visit due to patient being out of his medication for 8 months. Lisinopril restarted. Taking and tolerating without side effects. Not checking BP at home Denies visual changes, headaches, lightheadedness, dizziness, slurred speech, facial drooping, SOB,dyspnea, chest pain, palpitations, extremity numbness, tingling or [...] Abs Lymph 1.00 - 4.00 k/uL 2.58 Sabine% % 15.6 Abs Sabine <0.87 k/uL 1.00 (H) Eosin% % 2.2 [...] (L) Low The 10-year ASCVD risk score ([place] DK, et al., 2019) is: 2.9% Values [...] flag symptoms discussed, verbalizes understanding Vivien Gustafson APRN.CNP Prescription instructions reviewed with patient as applicable. [...] Level: 4 - Moderate documented in this encounterCl[facility] Hospital05-22-2024 NoteHNO ID: [id number] Author: VIVIEN GUSTAFSON APRN.CNP Service: ? Author [...] Abs Lymph 1.00 - 4.00 k/uL 2.58 Sabine% % 15.6 Abs Sabine <0.87 k/uL 1.00 (H) Eosin% % 2.2 [...] weight loss. BMI 34 (more content not included)...[facility]04-30-2024 Telephone encounter Note* Telephone Encounter - Melany Marquez MA - 03/24/2024 9:27 AM EDT Pt notified of results via Zentact. Melany Marquez Ma [facility]04-30-2024 Miscellaneous Notes* Telephone Encounter - Melany Marquez MA - 03/24/2024 9:27 AM EDT Pt notified of results via Zentact. Melany Marquez Ma * Telephone Encounter - Vivien Gustafson APRN.CNP - 03/24/2024 7:38 AM EDT Bilirubin slightly elevated. Can recheck in one month. LDL ) bad cholesterol) slightly elevated. Recommend lower saturated fat diet along with at least 150 minutes of exercise per week. Vivien Gustafson APRN.CNP documented in this encounterClinton [facility] Hospital04-30-2024 Telephone encounter Note * Telephone Encounter - Vivien Gustafson APRN.CNP - 03/24/2024 7:38 AM EDT Bilirubin slightly elevated. Can recheck in one month. LDL ) bad cholesterol) slightly elevated. Recommend lower saturated fat diet along with at least 150 minutes of exercise per week. Vivien Gustafson APRN.CNP [facility]04-24-2024 NoteHNO ID: [id number] Author: VIVIEN GUSTAFSON APRN.CNP Service: ? Author [...] caffienated sodas about 4-5 cans of Mt. SpinGo or Hypios. Feels fatigued a lot. Sleeps about six [...] 67 Resp 16 Ht 160 cm (5' 2.99") Wt 92.6 kg (204 lb 3.2 oz) [...] aerobic exercise - Discu (more content not included)...[facility]04-24-2024 History of Present illness Narrative* NadegelogVivien john APRN.CARD GRADER - 03/18/2024 9:18 AM EDT 03/18/2024 Patient presents with: Physical SUBJECTIVE: This [...] caffienated sodas about 4-5 cans of Mt. SpinGo or Coke. Feels fatigued a lot. Sleeps [...] No Drug use: No Comment: none since 2005 marijuana REVIEW OF SYSTEMS GENERAL: No weight [...] 67 Resp 16 Ht 160 cm (5' 2.99") Wt 92.6 kg (204 lb 3.2 oz) SpO2 98% BMI36.18 kg/m . Vital signs reviewed by this [...] A1C - UA DIP, URINE (POC Vivien Gustafson APRN.CARD GRADER Prescription instructions reviewed with patient as applicable. [...] Level: 4 - Moderate documented in this encounterCl[facility] Hospital12-22-2022 Miscellaneous Notes* Telephone Encounter - Ranjit Escalona MD - 11/15/2022 3:07 PM EST OK to refill as ordered Ranjit Escalona MD * Telephone Encounter - Echo Hodgson LPN - 11/13/2022 9:37 AM EST Pt calls from work in regards to request for lisinopril. Pt reports in the last three months he haslost everything. Pt reports he is finally back [...] message through to pt. Echo Hodgson LPN * Telephone Encounter - Brittny Hernandez LPN - 11/13/2022 7:13 AM EST Last refill 07/26/22 Qty: 90 with 0 refills TAD 02/06/22 NOV none scheduled. Pt needs to est care. Sent pt a message via My Chart regarding this. Pt was also sent message 07/14/22. Brittny Hernandez LPN * Telephone Encounter - Jesusita Allen Pss - 11/12/2022 12:12 PM EST Patient has been identified by name and date of : Yes Requested Prescriptions Pending Prescriptions Disp Refills lisinopril (ZESTRIL, PRINIVIL) 10 mg tablet 90 tablet 0 Sig: Take 1 tablet by mouth once daily. For blood pressure RX INSTRUCTIONS: Patient aware RX will be sent to pharmacy. No need to notify patient. Jesusita Carcamo documented in this encounterCl[facility] Hospital12-20-2022 Miscellaneous Notes* Telephone Encounter - Brittny Hernandez LPN - 11/13/2022 8:03 AM EST Being addressed in another encounter. Brittny Hernandez LPN documented in this encounterCl[facility] Hospital09-14-2022 Miscellaneous Notes* Telephone Encounter - Kash Hathaway MA - 08/08/2022 3:12 PM EDT message read 07/25/22. Will close TE at this time. Removed Mili as PCP as well. Kash Hathaway MA * Telephone Encounter - Elzbieta Baldwin Pss - 07/25/2022 8:47 AM EDT 2 nd attempt left message to return call in regards to PCP left clinic and needs to schedule a transferring care appt. My chart message also sent. * Telephone Encounter - Elzbieta Carcamo - 07/24/2022 2:23 PM EDT 1st attempt left message to return call in regards to PCP left clinic and needs to schedule a transferring care appt. * Telephone Encounter - Guilherme Villatoro APRN.DIGNA BARRAGAN - 07/17/2022 8:14 AM EDT Pt needs appt. * Telephone Encounter - Vale Newman - 07/16/2022 1:17 PM EDT Patient MyChart message requesting the following refill. Requested Prescriptions Pending Prescriptions Disp Refills lisinopril (ZESTRIL, PRINIVIL) 10 mg tablet 90 tablet 1 Sig: Take 1 tablet by mouth once daily. For blood pressure Patient last appointment: Patient Phone numbers: There are no phone numbers on file. Request is for script(s) to be escript to pharmacy. Vale Newman documented in this encounterCl[facility] Hospital05-18-2022 Miscellaneous Notes* Telephone Encounter - Vilma Chavez LPN - 04/11/2022 6:09 PM EDT My chart message sent to patient regarding refill request. Vilma Chavez LPN * Telephone Encounter - Tj Mathews MD - 04/11/2022 5:50 PM EDT Advise patient the the script he [facility] Dec 2021 was for 90 days with onerefill. He should have one refill on it and just needs to call the pharmacy to get the refill. He should also make an appt to transfer care to either Dr. Shaikh, Dr. Sullivan or Dr. Escalona since Johnnie will no longer be here after 05/25/2022. * Telephone Encounter - Rhonda De LPN - 04/11/2022 3:20 PM EDT Please see mychart message Patient has been identified by name [...] you. Rhonda De LPN documented in this encounterClinton Memorial HospitalEvaluation note* Diagnosis Hypertension, essential Unspecified essential hypertension documented in this encounter [facility] noteNo assessment information availableWGuernsey Memorial Hospital Work Phone: Evaluation note* Diagnosis Hypertension, essential Unspecified essential hypertension documented in this encounter [facility] note* Diagnosis Hypertension, essential Unspecified essential hypertension documented in this encounter [facility] note* Diagnosis Encounter for medical examination to establish care- Primary Hypertension, essential Unspecified essential hypertension Screening for hyperlipidemia Screening for lipoid disorders Polyuria Fatigue, unspecified type Polydipsia documented in this encounter [facility] note* Diagnosis Elevated bilirubin- Primary Jaundice, unspecified, not of documented in this encounter [facility] note* Diagnosis Hypertension, essential- Primary Unspecified essential hypertension Elevated bilirubin Jaundice, unspecified, not of documented in this encounter [facility] note* Diagnosis Hypertension, essential Unspecified essential hypertension documented in this encounter [facility] note* Diagnosis Hypertension, essential Unspecified essential hypertension documented in this encounter [facility] note* Diagnosis Acute cough- Primary Right upper quadrant abdominal pain Abdominal pain, right upper quadrant Infected cyst of skin Sebaceous cyst Acute cough documented in this encounter [facility] note* Diagnosis Acute cough documented in this encounter [facility] note* Diagnosis Pain of upper abdomen- Primary Abdominal pain, other specified site [facility] Additional Instructions Please follow-up with the PCP I referred you to and return for any worsening of symptoms. You can take ifar-mez-cwqijah constipation medication/fiber supplements to help alleviate your constipation.[facility] Work Phone: Hospital Discharge instructions Additional Instructions Tests today are unremarkable as is your ultrasound. Follow-up your primary care provider for further evaluation.[facility] Work Phone: Hospital Discharge instructions Additional Instructions Thank you for trusting us with your care today! Your labs images are reassuring. Specifically no sign of foreign body. No sign of bowel perforation or stomach perforation. Please take Tylenol (2 pills, 650 mg), ibuprofen (2 pills, 400 mg) every 6 hours as needed for pain and fever control. Please return to the emergency department if your symptoms change or worsen. Please follow with your primary care physician for further outpatient evaluation and management.[facility] Work Phone: Reason for referral (narrative)No reason for referral information availableWGuernsey Memorial Hospital Work Phone: Chief Complaint and Reason [...] ABD PAIN February 02, 2025 1:0 0pm Chief Complaint Admit Date abd pain January 26, 2025 6:59 am ABD PAIN February 02, 2025 1:0 0pm gi bleed April 30, 2025 7:53p m Advance Directives No Advanced Directives Records Found Advance Directive Response Recorded Date/ Time Living Will No April 28, 2022 4 :04am Power of Poem Writer No April 28, 2022 4:04am Advance Directive Response Recorded Date/ Time Living Will No June 02, 2022 2 :53pm Power of Poem Writer No June 02, 2022 2:53pm Advance Directive Response Recorded Date/ Time Living Will No June 29, 2022 11:53am Power of Poem Writer No June 29 11:53am Advance Directive Response Recorded Date/ Time Living Will No August 15, 2022 6:25am Power of Poem Writer No July 6:25am Advance Directive Response Recorded Date/ Time Living Will No November 14, 2 022 3:58pm Power of Poem Writer No November 14, 2022 3:58pm Advance Directive Response Recorded Date/ Time Living Will No April 06, 2023 2 :20pm Power of Poem Writer No April 06, 2023 2:20pm Advance Directive Response Recorded Date/ Time Living Will No September 24 6:12pm Power of Poem Writer No September 24, 2023 6:12pm Advance Directive Response Recorded Date/ Time Living Will No December 26 3:02pm Power of Poem Writer No December 26, 2023 3:02pm Advance Directive Response Recorded Date/ Time Living Will No October 10 024 8:27pm Power of Poem Writer No October 10, 2024 8:27pm Living Will No January 26, 2025 8:02am Power of Poem Writer No January 26 8:02am Living Will No February 02, 2025 2:23pm Power of Poem Writer No February 02 2:23pm Advance Directive Response Recorded Date/ Time Living Will No January 26, 2025 8:02am Do you have a Healthcare Power of Poem Writer? No January 26, 2025 8:02am Living Will No February 02, 2025 2:23pm Do you have a Healthcare Power of Poem Writer? No February 02, 2025 2:23pm Do you have a Healthcare Power of Poem Writer? No April 30, 2025 8:13pm Summary Purpose Family History No Family History Records FoundNo Family History Records Found Additional Source Comments Source Comments (unrecognize d section and content) In the event this informatio n is protected by the Federal Confidentiality of Alcohol and Drug Abuse Patient Records regulations: The Federal rules restrict any use of the information to criminally investigate or prosecute any alcohol or drug abuse patient.[facility] HospitalIn the event this information is protected by the Federal Confidentiality of Alcohol and Drug Abuse Patient Records regulations: The Federal rules restrict any use of the information to criminally investigate or prosecute any alcohol or drug abuse patient.[facility] HospitalIn the event this information is protected by the Federal Confidentiality of Alcohol and Drug Abuse Patient Records regulations: The Federal rules restrict any use of the information to criminally investigate or prosecute any alcohol or drug abuse patient.[facility] HospitalIn the event this information is protected by the Federal Confidentiality of Alcohol and Drug Abuse Patient Records regulations: The Federal rules restrict any use of the information to criminally investigate or prosecute any alcohol or drug abuse patient.[facility] HospitalIn the event this information is protected by the Federal Confidentiality of Alcohol and Drug Abuse Patient Records regulations: The Federal rules restrict any use of the information to criminally investigate or prosecute any alcohol or drug abuse patient.[facility] HospitalIn the event this information is protected by the Federal Confidentiality of Alcohol and Drug Abuse Patient Records regulations: The Federal rules restrict any use of the information to criminally investigate or prosecute any alcohol or drug abuse patient.[facility] HospitalIn the event this information is protected by the Federal Confidentiality of Alcohol and Drug Abuse Patient Records regulations: The Federal rules restrict any use of the information to criminally investigate or prosecute any alcohol or drug abuse patient.[facility] HospitalIn the event this information is protected by the Federal Confidentiality of Alcohol and Drug Abuse Patient Records regulations: The Federal rules restrict any use of the information to criminally investigate or prosecute any alcohol or drug abuse patient.[facility] Hospital[facility] the event this information is protected by the Federal Confidentiality of Alcohol and Drug Abuse Patient Records regulations: The Federal rules restrict any use of the information to criminally investigate or prosecute any alcohol or drug abuse patient.[facility] HospitalIn the event this information is protected by the Federal Confidentiality of Alcohol and Drug Abuse Patient Records regulations: The Federal rules restrict any use of the information to criminally investigate or prosecute any alcohol or drug abuse patient.[facility] HospitalIn the event this information is protected by the Federal Confidentiality of Alcohol and Drug Abuse Patient Records regulations: The Federal rules restrict any use of the information to criminally investigate or prosecute any alcohol or drug abuse patient.[facility] HospitalIn the event this information is protected by the Federal Confidentiality of Alcohol and Drug Abuse Patient Records regulations: The Federal rules restrict any use of the information to criminally investigate or prosecute any alcohol or drug abuse patient.[facility] HospitalIn the event this information is protected by the Federal Confidentiality of Alcohol and Drug Abuse Patient Records regulations: The Federal rules restrict any use of the information to criminally investigate or prosecute any alcohol or drug abuse patient.[facility] HospitalIn the event this information is protected by the Federal Confidentiality of Alcohol and Drug Abuse Patient Records regulations: The Federal rules restrict any use of the information to criminally investigate or prosecute any alcohol or drug abuse patient.[facility] HospitalIn the event this information is protected by the Federal Confidentiality of Alcohol and Drug Abuse Patient Records regulations: The Federal rules restrict any use of the information to criminally investigate or prosecute any alcohol or drug abuse patient.[facility] HospitalIn the event this information is protected by the Federal Confidentiality of Alcohol and Drug Abuse Patient Records regulations: The Federal rules restrict any use of the information to criminally investigate or prosecute any alcohol or drug abuse patient.[facility] HospitalIn the event this information is protected by the Federal Confidentiality of Alcohol and Drug Abuse Patient Records regulations: The Federal rules restrict any use of the information to criminally investigate or prosecute any alcohol or drug abuse patient.[facility] HospitalIn the event this information is protected by the Federal Confidentiality of Alcohol and Drug Abuse Patient Records regulations: The Federal rules restrict any use of the information to criminally investigate or prosecute any alcohol or drug abuse patient.[facility] Reason for Visit (unrecogniz ed section and content) Reason Comments Blood Pressure Check Specialty Diagnoses / Procedures Referred By Aniket handy Referred To Contact [facility] Diagnoses physical Procedures physical est care [place] [facility] [place] [address] Referral ID Status Reason Start Date Expiration Date Visits Requested Visits Authorized [id number] Authorized Financial Clearance Required - Self Pay Patient Cleared - Qualified HCAP/[id number] 03/03/2024 06/01/2024 99 99 Reason Comments Consult [facility] P:t Outreach F/ U Reason Onset Date [...] Referred By Aniket handy Referred To Contact [facility] Diagnoses All medical Procedures All medical [place] [facility] [place] [address] Referral ID Status Reason Start Date Expiration Date Visits Requested Visits Authorized [id number] Authorized Financial Clearance Required - Self Pay Patient Cleared - Qualified HCAP/FA 02/03/2025 05/04/2025 99 99 Reason Onset Date Comments Refill Request 04/03/2025 Care Teams (unrecognized sec tion and content) Proctologist Relationship Specialty Start Date End Date Guilherme Villatoro APRN.DIGNA BARRAGAN [address] [place], [place] [id number] PCP - General Family Practice 01/09/21 Proctologist Relationship Specialty Start Date End Date Guilherme Villatoro APRN.CNP, DNP [address] [place], [place] [phone] PCP - General Family Practice 01/09/21 Proctologist Relationship Specialty Start Date End Date Guilhemre Villatoro APRN.CARD GRADER, DNP [address] [place] [address] PCP - General Family Practice 01/09/21 08/07/22 [...] Dr. Jeison Lennon MD Emergency Provider Active Proctologist Relationship Specialty Start Date End Date Curt Sullivan MD [address] [place] [address] PCP - General Family Medicine 03/18/24 Proctologist Relationship Specialty Start Date End Date Curt Sullivan MD [address] [place] [address] PCP - General Family Medicine 03/18/24 Proctologist Relationship Specialty Start Date End Date Curt Sullivan MD [address] [place] [address] PCP - General Family Medicine 03/18/24 Proctologist Relationship Specialty Start Date End Date Curt Sullivan MD [address] [place] [address] PCP - General Family Medicine 03/18/24 Proctologist Relationship Specialty Start Date End Date Curt Sullivan MD [address] [place] [address] PCP - General Family Medicine 03/18/24 Proctologist Relationship Specialty Start Date End Date Curt Sullivan MD [address] [place] [address] PCP - General Family Medicine 03/18/24 Podlogar, Vivien, EMERGENCY WORKER.CARD GRADER [address] [place] [address] Elevated Guard Family Medicine 10/31/24 Proctologist Relationship Specialty Start Date End Date Curt Sullivan MD [address] [place] [address] PCP - General Family Medicine 03/18/24 Podlogar, Vivien, EMERGENCY WORKER.CARD GRADER [address] [place] [address] Elevated Guard Family Medicine 10/31/24 Proctologist Relationship Specialty Start Date End Date Curt Sullivan MD [address] [place] [address] PCP - General Family Medicine 03/18/24 Podlogar, Vivien, EMERGENCY WORKER.CARD GRADER [address] [place] [address] Elevated Guard Family Medicine 10/31/24 Proctologist Relationship Specialty Start Date End Date Curt Sullivan MD [address] [place] [address] PCP - General Family Medicine 03/18/24 Podlogar, Vivien, EMERGENCY WORKER.CARD GRADER [address] [place] [address] [facility] Nehemiah Dang APRN.CARD GRADER [address] [place], [place] [id number] [facility] Team Status: Active Member Role Status Dates Vivien Podlogar INTERNATIONAL LOGISTICS COORDINATOR, INTERNATIONAL LOGISTICS COORDINATOR-C Primary Care Provider Active Team Status: Inactive Member Role Status Dates Vivien Podlogalvaro INTERNATIONAL LOGISTICS COORDINATOR, INTERNATIONAL LOGISTICS COORDINATOR-C Primary Care Provider Active Start: October 10, 2024 End: October 10, 2024 Dr. Magen Chávez DO Attending Provider Active Start: October 10, 2024 End: October 10, 2024 Dr. Magen Chávez DO Emergency Provider Active Start: October 10, 2024 End: October 10, 2024 Team Status: Inactive Member Role Status Dates Vivien Podlogalvaro INTERNATIONAL LOGISTICS COORDINATOR, INTERNATIONAL LOGISTICS COORDINATOR-C Primary Care Provider Active Start: January 26, 2025 End: January 26, 2025 Dr. Guilherme Callahan DO Emergency Provider Active Start: January 26, 2025 End: January 26, 2025 Team Status: Inactive Member Role Status Dates Vivien Podlogalvaro INTERNATIONAL LOGISTICS COORDINATOR, INTERNATIONAL LOGISTICS COORDINATOR-C Primary Care Provider Active Start: February 02, 2025 End: February 02, 2025 Dr. Antonio Ortiz MD Emergency Provider Active S tart: February 02, 2025 End: February 02, 2025 Proctologist Relationship Specialty Start Date End Date Curt Sullivan MD [address] [place], [place] [address] PCP - General Family Medicine 03/18/24 PodlogarVivien APRN.CARD GRADER [address] [place], [place] [address] [facility] 10/31/24 Nehemiah Dang APRN.CARD GRADER [address] [place], [place] [address] [facility] 02/05/25 02/14/25 Nehemiah Dang APRN.CARD GRADER [address] [place] [address] [facility] 02/15/25 Proctologist Relationship Specialty Start Date End Date Curt Sullivan MD [address] [place] [address] PCP - General Family Medicine 03/18/24 PodlogarVivien APRN.CARD GRADER [address] [place] [address] [facility] 10/31/24 Nehemiah Dang APRN.CARD GRADER [address] [place] [address] [facility] 02/15/25 Team Status: Inactive Member Role Status Dates Vivien Gustafson INTERNATIONAL LOGISTICS COORDINATOR, INTERNATIONAL LOGISTICS COORDINATOR-C Primary Care Provider Active Start: January 26, 2025 End: January 26, 2025 Dr. Guilherme Callahan DO Attending Provider Active Start: January 26, 2025 End: January 26, 2025 Dr. Guilherme Callahan DO Emergency Provider Active Start: January 26, 2025 End: January 26, 2025 Team Status: Inactive Member Role Status Dates Vivien Gustafson INTERNATIONAL LOGISTICS COORDINATOR, INTERNATIONAL LOGISTICS COORDINATOR-C Primary Care Provider Active Start: February 02, 2025 End: February 02, 2025 Dr. Antonio Ortiz MD Attending Provider Active S tart: February 02, 2025 End: February 02, 2025 Dr. Antonio Ortiz MD Emergency Provider Active S tart: February 02, 2025 End: February 02, 2025 Team Status: Inactive Member Role Status Dates Vivien Podlogalvaro INTERNATIONAL LOGISTICS COORDINATOR, INTERNATIONAL LOGISTICS COORDINATOR-C Primary Care Provider Active Start: April 30, 2025 End: April 30, 2025 Dr. Carlos Zavala DO Emergency Provider Active Start: April 30, 2025 End: April 30, 2025 Goals (unrecognized section and content) Goals may [...] section and content) DATE CREATED AUTHOR 02/11/2025 [facility] DATE CREATED AUTHOR AUTHOR'S ORGANIZ ATION 05/08/2025 [facility] FOR RECORDS PERTAINING TO PATIENTS WHO ARE [...] BE BASED ON THE PRIMARY CLINICAL RECORDS. [employer] provides no warranty or guarantee of the accuracy or completeness of information in this document.
[2025-06-18 21:16] VITALS: O2SAT 100
--- NOTE | 2025-06-18 21:20 | RAD_ITS ---
PROCEDURE: CHEST 1 VIEW (PORTABLE) 06/18/2025 REASON FOR EXAM: CHEST PAIN TECHNIQUE: Frontal view of the chest. COMPARISON: 12/26/2023 FINDINGS: Lungs/Pleura: Clear. No pneumothorax or pleural effusion. Heart/Mediastinum: Normal in size. Bones/Soft tissues: Unremarkable. RAD/Chest 1 View (Portable) IMPRESSION: No acute cardiopulmonary disease. Reading Location: [id number]
[2025-06-18 21:27] LABS: Hematocrit 41.4 % (40-54); Hemoglobin 14.6 g/dL (13.0-16.5); Immature Granulocytes Count 0.040 X10^3/uL (0.0-0.0); Mean Corp Hgb Conc 35.3 g/dL (32-36); Mean Corpuscular Volume 89.6 fL (80-94); Mean Platelet Vol. 8.9 fl (6.2-12.0); NRBC Flagged by Analyzer 0 % (0-5); Platelet Count 353 K/mm3 (150-450); RBC Distribution Width CV 12.3 % (11.6-14.6); RBC Distribution Width SD 39.7 fl (35.1-43.9); Red Blood Count 4.62 M/mm3 (4.6-6.2); White Blood Count 10.9 K/mm3 (4.4-11.0)
[2025-06-18 21:50] LABS: Anion Gap 14 (5-15); BUN 18 mg/dL (4-19); BUN/Creat Ratio 17.0 RATIO (10-20); Calcium,Total 9.5 mg/dL (7.6-11.0); Carbon Dioxide 21.0 mmol/L (21.0-32.0); Chloride 99 mmol/L (98-108); Estimated Creatinine Clearance 86.72 ml/min (50-250); Glucose 110 mg/dL (70-99); Potassium 3.6 mmol/L (3.3-5.1); Troponin T High Sensitivity < 6 ng/L (<=22)
[2025-06-18 22:25] VITALS: BP 100/60; PULSE 80; O2SAT 99
[2025-06-18 23:08] VITALS: BP 100/60; PULSE 80; RESP 18; TEMP 36.4; O2SAT 99
[2025-06-18 23:08] LABS: Troponin T High Sens 2 HR 8 ng/L (<=22)
== END 2025-06-18 23:11 | disposition home or self-care (01) ==
PROVIDERS: Emergency Provider Emergency Medicine; PCP Nurse Practitioner Primary Care; Visit Provider Emergency Medicine
DX: R07.89 Other chest pain (principal); J06.9 Acute upper respiratory infection, unspecified; Z87.891 Personal history of nicotine dependence; I10 Essential (primary) hypertension; E78.5 Hyperlipidemia, unspecified
CPT/HCPCS: 71045; 80048; 84484; 85025; 93005; 99283; A4216